=== PATIENT | female | born 1975 | race Caucasian/White ===

== ENCOUNTER 2017-12-04 13:19 | Emergency (ER) | payer MEDICARE ==
[~2017-12-04] VITALS: Ht 154.9 cm; Wt 74.8 kg
[~2017-12-04 13:19] MED LIST: ACTOS30 MG PO; ADVAIR 500/501 EA INH; ALBUTEROL SULFAT4 MG PO; ALBUTEROL0.63 MG/3 INH; ATORVASTATIN CA10 MG PO; AZITHROMYCIN250 MG PO; BLOOD PRESSURE PILL; BYDUREON2 MG IM; CELEXA40 MG PO; DOXYCYCLINE HY100 MG PO; ESTRADIOL1 MG PO; GLIMEPIRIDE4 MG PO; HUMALOG MI100 UNIT/2 SC; HUMALOG100 UNITS/ SC; KEFLEX500 MG PO; LAMICTAL25 MG PO; LEVAQUIN500 MG PO; LEVEMIR100 UNIT/1 SQ; LISINOPRIL10 MG PO; LRT10 PO; NORCO 10MG-325MG1 EA PO; PEPCID20 MG PO; PREDNISONE10 MG PO; PREDNISONE20 MG PO; PREMARIN0.625 MG PO; TRIGENTA PO; TYLENOL WITH C1 EACH PO; VENTOLIN HFA18 GM INH; ZOFRAN ODT4 MG PO; ZOLOFT100 MG PO; [UNRECOGNIZED DRUG - OTHER]
== END 2017-12-04 20:28 | disposition left against medical advice (07) ==
LOC: ER 13:19
DX: J40 Bronchitis, not specified as acute or chronic (principal)

== ENCOUNTER 2017-12-28 12:15 | Emergency (ER) | payer MEDICARE ==
[~2017-12-28] VITALS: Ht 152.4 cm; Wt 68.0 kg
--- OUTSIDE RECORDS SUMMARY | 2017-12-28 12:18 | XMS REPORT | Continuity of Care Document ---
Author Author [facility] Organization [facility] Address [address] [place] [address] Phone Unavailable Care Team Providers Care Data Warehousing Engineer Name Role Phone MJ BANUELOS III, M.D. PCP Insurance Providers Guarantor Yolette Uribe Address [address] [place] [address] Email NONE Payer Medicare A & B Policy Number [id number] Subscriber's Name Yolette Uribe Relationship 18 Self / Same As Patient Effective Date 99 Advance Directives Directive Response Recorded Date/Time Does the patient have an advance directive? No 05/14/15 3:30am If yes, is advance directive on file with [facility]? No 05/14/15 3:30am If not on file with [facility] will patient provide a copy? No 01/03/17 11:35pm Do you have a Directive to Physician? No 12/04/17 3:31pm Do you have a Medical Power of Rn Teacher? No 12/04/17 3:31pm Do you have an out of hospital Do Not Resuscitate Order? No 12/04/17 3:31pm Do you have any special needs we should be aware of? No 12/04/17 3:31pm Do you have a support person here with you today? Yes 12/04/17 3:31pm Did patient receive Notice of Privacy Practices? Yes 12/04/17 3:31pm Did patient receive patient rights and responsibilities? Yes 12/04/17 3:31pm Problems Medical Problem Onset Date Status Acute asthma 06/05/2014 Acute Dehydration 05/14/2015 Acute Dehydration fever 05/14/2015 Acute Gastroenteritis 05/14/2015 Acute Reactive airway disease 05/14/2015 Acute Uncontrolled blood glucose 05/14/2015 Acute Medications Current Home Medications Medication Dose Units Route Directions Days Qty Instructions Start Date Citalopram Hydrobromide (Celexa) 40 Mg Tablet 50 Mg Oral Daily Insulin Npl/Insulin Lispro (Humalog Mix 75-25 Kwikpen) 100 Unit/1 Ml Insuln.pen 36 Unit Subcutaneously Twice A Day Lisinopril 10 Mg Tablet 10 Mg Oral Daily 30 Tab Past Home Medications Medication Directions Ordered Status Acetaminophen With Codeine (Tylenol With Codeine #3 Tablet) 1 Each Tablet, 300 Mg Oral Every 6 Hours Discontinued Albuterol Sulf (Albuterol Sulfate) 4 Mg Tab, 4 Mg Oral Twice A Day Discontinued Albuterol Sulfate 0.63 Mg/3 Ml Vial.neb, 1 Inhalation Every 4 Hours as needed for Shortness Of Breath Discontinued Albuterol Sulfate (Ventolin Hfa) 18 Gm Hfa.aer.ad, Inh Inhalation Every 4 Hours Discontinued Atorvastatin Calcium 10 Mg Tablet, 10 Mg Oral Daily Discontinued Azithromycin (Z-Nicholas) 250 Mg Tablet, 250 Mg Oral Daily Discontinued Blood Pressure Pill , Discontinued Bydron , Discontinued Cephalexin Monohydrate (Keflex) 500 Mg Capsule, 500 Mg Oral Three Times A Day Discontinued Doxycycline Hyclate 100 Mg Capsule, 100 Mg Oral Every 12 Hours Discontinued Doxycycline Hyclate 100 Mg Capsule, 100 Mg Oral Every 12 Hours 02/08/15 Discontinued Estradiol 1 Mg Tab, 0.5 Mg Oral Daily Discontinued Exenatide Microspheres (Bydureon) 2 Mg Vial, 1 Vial Intramusc Qweekly Discontinued Famotidine (Pepcid) 20 Mg Tablet, 20 Mg Oral Twice A Day 02/08/15 Discontinued Glimepiride 4 Mg Tablet, 4 Mg Oral Daily Discontinued Insulin Detemir (Levemir) 100 Unit/1 Ml Vial, 44 Units Sub-Q Daily Discontinued Insulin Human Lispro (Humalog) 100 Units/Ml Ml, Subcutaneously Daily Discontinued Lamotrigine (Lamictal) 25 Mg Tab, 25 Mg Oral Daily Discontinued Levofloxacin (Levaquin) 500 Mg Tablet, 500 Mg Oral Daily Discontinued Lrt10 10 Mg Tab, 10 Mg Oral Daily 02/08/15 Discontinued Ondansetron (Zofran Odt) 4 Mg Tab.rapdis, 4 Mg Oral Every 6 Hours Discontinued Pioglitazone Hcl (Actos) 30 Mg Tablet, 30 Mg Oral Daily Discontinued Prednisone 20 Mg Tab, 20 Mg Oral Every 12 Hours 02/08/15 Discontinued Sertraline Hcl (Zoloft) 100 Mg Tablet, 100 Mg Oral Daily Discontinued Sertraline Hcl (Zoloft) 100 Mg Tablet, 100 Mg Oral Daily Discontinued Trigenta , 1 Tab Oral Daily Discontinued Social History Social History Problem Response Recorded Date/Time Onset Date Status Hx Psychiatric Problems Yes 05/14/2015 3:30am Not Applicable Not Applicable Hx Eating Disorder No 05/14/2015 3:30am Not Applicable Not Applicable Hx Substance Use Disorder No 05/14/2015 3:30am Not Applicable Not Applicable Hx Depression No 05/14/2015 3:30am Not Applicable Not Applicable Hx Alcohol Use No 05/14/2015 3:30am Not Applicable Not Applicable Hx Substance Use Treatment No 05/14/2015 3:30am Not Applicable Not Applicable Hx Physical Abuse No 05/14/2015 3:30am Not Applicable Not Applicable Hospital Discharge Instructions No hospital discharge instruction information available. Plan of Care Discharge Date 12/04/17 8:28pm Disposition REQUEST WITHDRAWN FOR M[facility] Condition at Discharge Other Forms Provided Work/School Excuse Prescriptions See Medication Section Functional Status No functional status information available. Allergies, Adverse Reactions, Alerts Allergen Type Severity Reaction Status Last Updated promethazine HCl Allergy Mild ITCHING Active 12/04/17 Penicillin Allergy Unknown Active 12/04/17 Sulfa (Sulfonamide Antibiotics) Allergy Unknown Active 12/04/17 Morphine Allergy Severe AIRWAY CLOSED Active 12/04/17 Ibuprofen Allergy Severe GI distress Active 12/04/17 Metformin Allergy Mild TONGUE SWELLING Active 12/04/17 Immunizations No immunization information available. Vital Signs Acute Vital Signs Vital Response Date/Time Temperature (Fahrenheit) 98.8 degrees F (97.6 - 99.5) 04/01/2017 1:05am Pulse Pulse Rate (adult) 82 bpm (60 - 90) 04/01/2017 1:05am Respiratory Rate 20 bpm (12 - 24) 04/01/2017 1:05am Blood Pressure 114/86 mm Hg 04/01/2017 1:05am Height 5 ft 1 in 12/04/2017 1:56pm Weight 165 lb 12/04/2017 1:56pm Body Mass Index 31.2 kg/m^2 12/04/2017 1:56pm Results Laboratory Results Test Name Result Units Flags Reference Collection Date/Time Result Date/ Time Comments White Blood Count 4.77 x10e3/uL L 4.8-10.8 03/31/2017 5:56pm 03/31/2017 6:13pm Red Blood Count 5.09 x10e6/uL 3.6-5.1 03/31/2017 5:56pm 03/31/2017 6: 13pm Hemoglobin 15.0 g/dL 12.0-16.0 03/31/2017 5:56pm 03/31/2017 6:13pm Hematocrit 43.5 % 34.2-44.1 03/31/2017 5:56pm 03/31/2017 6:13pm Mean Corpuscular Volume 85.5 fL 81-99 03/31/2017 5:56pm 03/31/2017 6: 13pm Mean Corpuscular Hemoglobin 29.5 pg 28-32 03/31/2017 5:56pm 03/31/2017 6:13pm Mean Corpuscular Hemoglobin Concent 34.5 g/dL 31-35 03/31/2017 5:56pm 03/31/2017 6:13pm Red Cell Distribution Width 11.9 % 11.7-14.4 03/31/2017 5:56pm 2016 6:13pm Platelet Count 221 x10e3/uL 140-360 03/31/2017 5:56pm 03/31/2017 6: 13pm Neutrophils (%) (Auto) 41.4 % 38.7-80.0 03/31/2017 5:56pm 03/31/2017 6: 13pm Lymphocytes (%) (Auto) 47.2 % H 18.0-39.1 03/31/2017 5:56pm 03/31/2017 6 :13pm Monocytes (%) (Auto) 9.6 % 4.4-11.3 03/31/2017 5:56pm 03/31/2017 6: 13pm Eosinophils (%) (Auto) 1.0 % 0.0-6.0 03/31/2017 5:56pm 03/31/2017 6: 13pm Basophils (%) (Auto) 0.6 % 0.0-1.0 03/31/2017 5:56pm 03/31/2017 6:13pm IM GRANULOCYTES % 0.2 % 0.0-1.0 03/31/2017 5:56pm 03/31/2017 6:13pm Neutrophils # (Auto) 2.0 L 2.1-6.9 03/31/2017 5:56pm 03/31/2017 6: 13pm Lymphocytes # (Auto) 2.3 1.0-3.2 03/31/2017 5:56pm 03/31/2017 6:13pm Monocytes # (Auto) 0.5 0.2-0.8 03/31/2017 5:56pm 03/31/2017 6:13pm Eosinophils # (Auto) 0.1 0.0-0.4 03/31/2017 5:56pm 03/31/2017 6:13pm Basophils # (Auto) 0.0 0.0-0.1 03/31/2017 5:56pm 03/31/2017 6:13pm Absolute Immature Granulocyte (auto 0.01 x10e3/uL 0-0.1 03/31/2017 5: 56pm 03/31/2017 6:13pm Urine Color YELLOW YELLOW 03/31/2017 5:53pm 03/31/2017 7:07pm Urine Clarity CLEAR CLEAR 03/31/2017 5:53pm 03/31/2017 7:07pm Urine Specific [place] 1.005 L 1.010-1.025 03/31/2017 5:53pm 2016 7:07pm Urine pH 5 5 - 7 03/31/2017 5:53pm 03/31/2017 7:07pm Urine Leukocyte Esterase TRACE H NEGATIVE 03/31/2017 5:53pm 2016 7:07pm Urine Nitrite NEGATIVE NEGATIVE 03/31/2017 5:53pm 03/31/2017 7:07pm Urine Protein NEGATIVE NEGATIVE 03/31/2017 5:53pm 03/31/2017 7:07pm Urine Glucose (UA) 3+ H NEGATIVE 03/31/2017 5:53pm 03/31/2017 7:07pm Urine Ketones NEGATIVE NEGATIVE 03/31/2017 5:53pm 03/31/2017 7:07pm Urine Urobilinogen 0.2 mg/dL 0.2 - 1 03/31/2017 5:53pm 03/31/2017 7: 07pm Urine Bilirubin NEGATIVE NEGATIVE 03/31/2017 5:53pm 03/31/2017 7: 07pm Urine Blood NEGATIVE NEGATIVE 03/31/2017 5:53pm 03/31/2017 7:07pm Urine WBC 6-10 /HPF H 0-5 03/31/2017 5:53pm 03/31/2017 7:10pm Urine RBC NONE /HPF 0-5 03/31/2017 5:53pm 03/31/2017 7:10pm Urine Bacteria FEW /HPF NONE 03/31/2017 5:53pm 03/31/2017 7:10pm Urine Epithelial Cells MODERATE /LPF NONE 03/31/2017 5:53pm 03/31/2017 7:10pm Urine Yeast RARE H NONE 03/31/2017 5:53pm 03/31/2017 7:10pm Sodium Level 134 mmol/L L 136-145 03/31/2017 11:52pm 04/01/2017 12:17am Potassium Level 3.4 mmol/L L 3.5-5.1 03/31/2017 11:52pm 04/01/2017 12: 17am Chloride Level 102 mmol/L 98-107 03/31/2017 11:52pm 04/01/2017 12:17am Carbon Dioxide Level 23 mmol/L 22-03/31/2017 11:52pm 04/01/2017 12: 17am Anion Gap 12.4 mmol/L 8-16 03/31/2017 11:52pm 04/01/2017 12:17am Blood Urea Nitrogen 5 mg/dL L 7-03/31/2017 11:52pm 04/01/2017 12: 17am Creatinine 0.71 mg/dL 0.57-1.11 03/31/2017 11:52pm 04/01/2017 12:17am BUN/Creatinine Ratio 7 6-03/31/2017 11:52pm 04/01/2017 12:17am Estimat Glomerular Filtration Rate > 60 ML/MIN 60- 03/31/2017 11:52pm 04/01/2017 12:17am Ranges were taken from the National Kidney Disease Education Program and the National Kidney Foundation literature. Reference ranges: 60 or greater: Normal 16-59 (for 3 consecutive months): Chronic kidney disease 15 or less: Kidney failure Glucose Level 294 mg/dL H 74-118 03/31/2017 11:52pm 04/01/2017 12:17am Calcium Level 8.8 mg/dL 8.4-10.2 03/31/2017 11:52pm 04/01/2017 12:17am Lactic Acid Level 13.4 MG/DL 4.5-19.8 03/31/2017 11:52pm 04/01/2017 12: 19am Total Bilirubin 0.2 mg/dL 0.2-1.2 03/31/2017 5:56pm 03/31/2017 6:33pm Aspartate Amino Transf (AST/SGOT) 11 IU/L 5-34 03/31/2017 5:56pm 2016 6:33pm Alanine Aminotransferase (ALT/SGPT) 14 IU/L 0-55 03/31/2017 5:56pm 6:33pm Total Protein 7.7 g/dL 6.5-8.1 03/31/2017 5:56pm 03/31/2017 6:33pm Albumin 3.9 g/dL 3.5-5.0 03/31/2017 5:56pm 03/31/2017 6:33pm Globulin 3.8 g/dL H 2.3-3.5 03/31/2017 5:56pm 03/31/2017 6:33pm Albumin/Globulin Ratio 1.0 0.8-2.0 03/31/2017 5:56pm 03/31/2017 6: 33pm Alkaline Phosphatase 156 IU/L H 40-150 03/31/2017 5:56pm 03/31/2017 6: 33pm Microbiology Results Procedure Source Organism/Result Collection Date/Time Result Date/Time Result Status Blood Culture Blood NO GROWTH AFTER 5 DAYS, FINAL REPORT 03/31/2017 5:56pm 04/05/2017 6:08pm Final Procedures Procedure Status Date Provider(s) X-ray of chest, two views Active 03/31/17 ABEBA BENÍTEZ MD Encounters Encounter Location Arrival/Admit Date Discharge/Depart Date Attending Provider Departed Emergency Room [facility] 12/04/17 1:19pm 8:28pm SHAHID JACKSON MD Departed Emergency Room [facility] 03/31/17 5:22pm 1:14am ABEBA BENÍTEZ MD Departed Emergency Room [facility] 02/20/17 12:53pm 02/20 5:09pm MANUEL DAVIS MD
[2017-12-28] MEDS ORDERED: HYDROCODONE/APAP 10MG-325MG TAB PO ONE (12:30)
[2017-12-28 12:48] VITALS: BP 131/79
== END 2017-12-28 12:40 | disposition home or self-care (01) ==
LOC: ER 12:15
DX: K02.9 Dental caries, unspecified (principal); I10 Essential (primary) hypertension; E11.9 Type 2 diabetes mellitus without complications; J45.909 Unspecified asthma, uncomplicated; F32.9 Major depressive disorder, single episode, unspecified
CPT/HCPCS: 99282

== ENCOUNTER 2018-01-15 17:59 | Emergency (ER) | payer MEDICARE ==
[~2018-01-15] VITALS: Ht 154.9 cm; Wt 68.0 kg
[2018-01-15] MEDS ORDERED: IBUPROFEN 600 MG TAB PO ONE (18:01)
--- OUTSIDE RECORDS SUMMARY | 2018-01-15 18:03 | XMS REPORT | Continuity of Care Document ---
Author Author [facility] Organization [facility] Address [address] [place] [address] Phone Unavailable Care Team Providers Care Senior Compensation Analyst Name Role Phone MJ BANUELOS III, M.D. PCP Insurance Providers Guarantor Yolette Uribe Address [address] [place] [address] Email NONE Payer Medicare A & B Policy Number [id number] Subscriber's Name Yolette Uribe Relationship 18 Self / Same As Patient Effective Date 99 Advance Directives Directive Response Recorded Date/Time Does the patient have an advance directive? No 05/14/15 3:30am If yes, [facility] No 05/14/15 3:30am If not on file with [facility] will patient provide a copy? No 01/03/17 11:35pm Problems Medical Problem Onset Date Status Acute [...] No 05/14/2015 3:30am Not Applicable Not Applicable Smoking Status Start Date Stop Date Never Smoker Hospital Discharge Instructions No hospital discharge instruction information available. Plan of Care Discharge Date 12/28/17 12:40pm Disposition HOME, SELF-CARE Condition at Discharge Stable Instructions/Education Provided Dental Caries (Cavities) Forms Provided Work/School Excuse Prescriptions See Medication Section Referrals MJ BANUELOS III, M.D. Address: [address] [place] [id number] Additional Instructions/Education 1. follow up with your dentist in 1-2 days without fail 2. return to ed as needed Functional Status No functional status information available. Allergies, Adverse Reactions, Alerts Allergen Type Severity Reaction Status Last Updated promethazine HCl Allergy Mild ITCHING Active 12/28/17 Penicillin Allergy Unknown Active 12/04/17 Sulfa (Sulfonamide Antibiotics) Allergy Unknown Active 12/28/17 Morphine Allergy Severe AIRWAY CLOSED Active 12/28/17 Ibuprofen Allergy Severe GI distress Active 12/04/17 Metformin Allergy Mild TONGUE SWELLING Active 12/28/17 Immunizations No immunization information available. Vital Signs Acute Vital Signs Vital Response Date/Time Temperature (Fahrenheit) 99.4 degrees F (97.6 - 99.5) 12/28/2017 12:48pm Pulse Pulse Rate (adult) 92 bpm (60 - 90) 12/28/2017 12:48pm Respiratory Rate 20 bpm (12 - 24) 12/28/2017 12:48pm Blood Pressure 131/79 mm Hg 12/28/2017 12:48pm Height 5 ft 0 in 12/28/2017 12:33pm Weight 150 lb 12/28/2017 12:33pm Body Mass Index 29.3 kg/m^2 12/28/2017 12:33pm Results Laboratory Results Test Name Result Units Flags Reference Collection Date/Time Result Date/ Time Comments White Blood Count 4.77 x10e3/uL L 4.8-10.8 03/31/2017 5:56pm 03/31/2017 6:13pm Red Blood Count 5.09 x10e6/uL 3.6-5.1 03/31/2017 5:5603/31/2017 6: 13pm Hemoglobin 15.0 g/dL 12.0-16.0 03/31/2017 5:03/31/2017 6:13pm Hematocrit 43.5 % 34.2-44.1 03/31/2017 5:03/31/2017 6:13pm Mean Corpuscular Volume 85.5 fL 81-99 03/31/2017 5:03/31/2017 6: 13pm Mean Corpuscular Hemoglobin 29.5 pg 28-32 03/31/2017 5:56pm 03/31/2017 6:13pm Mean Corpuscular Hemoglobin Concent 34.5 g/dL 31-35 03/31/2017 5:pm 03/31/2017 6:13pm Red Cell Distribution Width 11.9 % 11.7-14.4 03/31/2017 5:2016 6:13pm Platelet Count 221 x10e3/uL 140-360 03/31/2017 5:03/31/2017 6: 13pm Neutrophils (%) (Auto) 41.4 % 38.7-80.0 03/31/2017 5:pm 03/31/2017 6: 13pm Lymphocytes (%) (Auto) 47.2 % H 18.0-39.1 03/31/2017 5:03/31/2017 6 :13pm Monocytes (%) (Auto) 9.6 % 4.4-11.3 03/31/2017 5:03/31/2017 6: 13pm Eosinophils (%) (Auto) 1.0 % 0.0-6.0 03/31/2017 5:03/31/2017 6: 13pm Basophils (%) (Auto) 0.6 % 0.0-1.0 03/31/2017 5:pm 03/31/2017 6:13pm IM GRANULOCYTES % 0.2 % [...] CLEAR 03/31/2017 5:53pm 03/31/2017 7:07pm Urine Specific [place] 1.005 L 1.010-1.025 03/31/2017 5:53pm 2016 7:07pm [...] Discharge/Depart Date Attending Provider Departed Emergency Room [facility] 12/28/17 12:15pm 12/28 12:40pm MANUEL DAVIS MD Departed Emergency Room [facility] 12/04/17 1:19pm 8:28pm SHAHID JACKSON MD Departed Emergency Room [facility] 03/31/17 5:22pm 1:14am ABEBA BENÍTEZ MD
--- NOTE | 2018-01-15 19:44 | Diagnostic Imaging Report ---
RIGHT FOOT - 2 VIEWS RIGHT ANKLE - 3 VIEWS HISTORY: Trauma, twisted ankle COMPARISON: None available. FINDINGS: Sensitivity limited by portable technique and nonweightbearing views. Bones: A 5 mm ossific fragment at the tip of the lateral malleolus. A 3 mm ossific fragment adjacent to the medial aspect of the first tarsometatarsal joint. The ankle mortise is symmetric. Joints: Scattered mild to moderate degenerative changes, most notably the tibiotalar joint. Soft tissues: Regional soft tissue swelling. IMPRESSION: Small age-indeterminate ossific fragments adjacent to the tip of the lateral malleolus and the medial aspect of the first tarsometatarsal joint, correlate for acute focal point tenderness. Signed by: Dr. Jose R Delgado D.O., M.M.M. on 01/15/2018 7:41 PM
[2018-01-15 20:17] VITALS: BP 124/97
== END 2018-01-15 20:39 | disposition home or self-care (01) ==
LOC: ER 17:59
DX: S93.491A Sprain of other ligament of right ankle, initial encounter (principal); W22.8XXA Striking against or struck by other objects, initial encounter; Y93.01 Activity, walking, marching and hiking; Y92.019 Unspecified place in single-family (private) house as the place of occurrence of the external cause; J45.909 Unspecified asthma, uncomplicated; J40 Bronchitis, not specified as acute or chronic
CPT/HCPCS: 99283

== ENCOUNTER 2018-01-17 19:55 | Emergency (ER) | payer MEDICARE ==
[~2018-01-17] VITALS: Ht 154.9 cm; Wt 68.0 kg
--- OUTSIDE RECORDS SUMMARY | 2018-01-17 19:59 | XMS REPORT ---
Author Author [facility] Organization [facility] Address Unknown Phone Unavailable Care Team Providers Care Health Care Law Specialist Name Role Phone SHAHID JACKSON Unavailable Unavailable Problems This patient has no known problems. Allergies, Adverse Reactions, Alerts This patient has no known allergies or adverse reactions. Medications This patient has no known medications. Results Test Description Test Time Test Comments Text Results Atomic Results Result Comments FOOT RIGHT AP LAT [place] [address] Patient Name: YOLETTE URIBE MR #: [id number] : 1975 Age/Sex: 42/F Req #: [id number] Adm Physician: Ordered by: BEVERLY MARTELL PAINT SUPERVISOR Report #: [id number] Location: ER Room/Bed: Procedure: [id number] DX/FOOT RIGHT AP LAT Exam Date: 01/15/18 Exam Time : 1904 REPORT STATUS: Signed RIGHT FOOT - 2 VIEWS RIGHT ANKLE - 3 VIEWS HISTORY: Trauma, twisted ankle COMPARISON: None available. FINDINGS: Sensitivity limited by portable technique and nonweightbearing views. Bones: A 5 mm ossific fragment at the tip of the lateral malleolus. A 3 mm ossific fragment adjacent to the medial aspect of the first tarsometatarsal joint. The ankle mortise is symmetric. Joints : Scattered mild to moderate degenerative changes, most notably the tibiotalar joint. Soft tissues: Regional soft tissue swelling. IMPRESSION: Small age-indeterminate ossific fragments adjacent to the tip of the lateral malleolus and the medial aspect of the first tarsometatarsal joint , correlate for acute focal point tenderness. Signed by: Dr. Jose R Delgado D.O., M.M.M. on 01/15/2018 7:41 PM Dictated By: JOSE R DELGADO DO 40 Transcribed By: JEMAL on 01/15/181940 COPY TO: BEVERLY MARTELL PAINT SUPERVISOR ANKLE 3 + VIEWS RIGHT [place] [address] Patient Name: YOLETTE URIBE MR #: [id number] : 1975 Age/Sex: 42/F Req #: [id number] Adm Physician: Ordered by: BEVERLY MARTELL PAINT SUPERVISOR Report #: [id number] Location: ER Room/Bed: Procedure: [id number] DX/ANKLE 3 + VIEWS RIGHT Exam Date: 01/15/18 Exam Time: 1905 REPORT STATUS: Signed RIGHT FOOT - 2 VIEWS RIGHT ANKLE - 3 VIEWS HISTORY: Trauma, twisted ankle COMPARISON: None available. FINDINGS: Sensitivity limited by portable technique and nonweightbearing views. Bones: A 5 mm ossific fragment at the tip of the lateral malleolus. A 3 mm ossific fragment adjacent to the medial aspect of the first tarsometatarsal joint. The ankle mortise is symmetric. Joints : Scattered mild to moderate degenerative changes, most notably the tibiotalar joint. Soft tissues: Regional soft tissue swelling. IMPRESSION: Small age-indeterminate ossific fragments adjacent to the tip of the lateral malleolus and the medial aspect of the first tarsometatarsal joint , correlate for acute focal point tenderness. Signed by: Dr. Jose R Delgado D.O., M.M.M. on 01/15/2018 7:41 PM Dictated By: JOSE R DELGADO DO 40 Transcribed By: JEMAL on 01/15/181940 COPY TO: BEVERLY MARTELL NP
--- OUTSIDE RECORDS SUMMARY | 2018-01-17 19:59 | XMS REPORT | Continuity of Care Document ---
Author Author [facility] Organization [facility] Address [address] [place] [address] Phone Unavailable Care Team Providers Care Yard Rigger Name Role Phone MJ BANUELOS III, M.D. PCP Insurance Providers Guarantor Yolette Uribe Address [address] [place] [address] Email NONE Payer Medicare A & B Policy Number [id number] Subscriber's Name Yolette Uribe Relationship 18 Self / Same As Patient Effective Date 99 Advance Directives Directive Response Recorded Date/Time Does the patient have an advance directive? No 05/14/15 3:30am If yes, is advance directive on file with [facility]? No 05/14/15 3:30am If not on file with [facility] will patient provide a copy? No 01/03/17 11:35pm Do you have a Directive to Physician? No 01/15/18 8:16pm Do you have a Medical Power of Welt Treater? No 01/15/18 8:16pm Do you have an out of hospital Do Not Resuscitate Order? No 01/15/18 8:16pm Do you have any special needs we should be aware of? No 01/15/18 8:16pm Do you have a support person here with you today? Yes 01/15/18 8:16pm Did patient receive Notice of Privacy Practices? Yes 01/15/18 8:16pm Did patient receive patient rights and responsibilities? Yes 01/15/18 8:16pm Problems Medical Problem Onset Date Status Acute [...] information available. Plan of Care Discharge Date 01/15/18 8:39pm Disposition HOME, SELF-CARE Condition at Discharge Stable Instructions/Education Provided Foot Care Sprains - Ankle Forms Provided Work/School Excuse Prescriptions See Medication Section Referrals PIPO CRAIG DPM Order Date: Call for an appointment Address: [address] [place] [id number] MJ BANUELOS III, M.D. Address: [id number] [place] [id number] Additional Instructions/Education Keep your injured extremity elevated above your heart, use ice packs for 15 to 20 minutes every 1-2 hours. This will help decrease pain and swelling. Take Motrin 400mg to 600mg every 4-6 hours as needed for pain. If prescribed pain medication on discharge, take the pain medication as prescribed and adhere to the warnings given for pain medication such as no swimming, driving operating heavy machinery, drinking or mixing with other medications that can interact with the narcotic. Follow up with the Orthopedic referral physician listed, call next business day to schedule your follow-up appointment. Return to the Emergency Department for any shortness of breath, increased pain injured extremity, discoloration of extremity crit is decreased circulation of extremity, or any new concerns. Functional Status No functional status information available. Allergies, Adverse Reactions, Alerts Allergen Type Severity Reaction Status Last Updated promethazine HCl Allergy Mild ITCHING Active 01/15/18 Sulfa (Sulfonamide Antibiotics) Allergy Unknown Active 01/15/18 Morphine Allergy Severe AIRWAY CLOSED Active 01/15/18 Metformin Allergy Mild TONGUE SWELLING Active 01/15/18 Immunizations No immunization information available. Vital Signs Acute Vital Signs Vital Response Date/Time Temperature (Fahrenheit) 99.4 degrees F (97.6 - 99.5) 12/28/2017 12:48pm Pulse Pulse Rate (adult) 88 bpm (60 - 90) 01/15/2018 8:17pm Respiratory Rate 20 bpm (12 - 24) 12/28/2017 12:48pm Blood Pressure 124/97 mm Hg 01/15/2018 8:17pm Height 5 ft 1 in 01/15/2018 6:00pm Weight 150 lb 01/15/2018 6:00pm Body Mass Index 28.3 kg/m^2 01/15/2018 6:00pm Results Laboratory Results Test Name Result Units [...] Monocytes (%) (Auto) 9.6 % 4.4-11.3 03/31/2017 5:pm 03/31/2017 6: 13pm Eosinophils (%) (Auto) 1.0 % 0.0-6.0 03/31/2017 5:pm 03/31/2017 6: 13pm Basophils (%) (Auto) 0.6 % 0.0-1.0 03/31/2017 5:pm 03/31/2017 6:13pm IM GRANULOCYTES % 0.2 % 0.0-1.0 03/31/2017 5:03/31/2017 6:13pm Neutrophils # (Auto) 2.0 L 2.1-6.9 03/31/2017 5:03/31/2017 6: 13pm Lymphocytes # (Auto) 2.3 1.0-3.2 03/31/2017 5:pm 03/31/2017 6:13pm Monocytes # (Auto) 0.5 0.2-0.8 03/31/2017 5:pm 03/31/2017 6:13pm Eosinophils # (Auto) 0.1 0.0-0.4 03/31/2017 5:pm 03/31/2017 6:13pm Basophils # (Auto) 0.0 0.0-0.1 03/31/2017 5:56pm 03/31/2017 6:13pm Absolute Immature Granulocyte (auto 0.01 x10e3/uL 0-0.1 03/31/2017 5: 56pm 03/31/2017 6:13pm Urine Color YELLOW YELLOW 03/31/2017 5:53pm 03/31/2017 7:07pm Urine Clarity CLEAR CLEAR 03/31/2017 5:53pm 03/31/2017 7:07pm Urine Specific Jay 1.005 L 1.010-1.025 03/31/2017 5:53pm 2016 7:07pm [...] 04/01/2017 12:17am Carbon Dioxide Level 23 mmol/L 22-29 03/31/2017 11:52pm 04/01/2017 12: 17am Anion Gap 12.4 mmol/L 8-16 03/31/2017 11:52pm 04/01/2017 12:17am Blood Urea Nitrogen 5 mg/dL L 7-03/31/2017 11:52pm 04/01/2017 12: 17am Creatinine 0.71 mg/dL 0.57-1.11 03/31/2017 11:52pm 04/01/2017 12:17am BUN/Creatinine Ratio 7 6-25 03/31/2017 11:52pm 04/01/2017 12:17am Estimat Glomerular Filtration Rate [...] Discharge/Depart Date Attending Provider Departed Emergency Room [facility] 01/15/18 5:59pm 8:39pm SHAHID JACKSON MD Departed Emergency Room [facility] Patients [facility] 12/28/17 12:15pm 12/28 12:40pm MANUEL DAVIS MD Departed Emergency Room [facility] Patients [facility] 12/04/17 1:19pm 8:28pm SHAHID JACKSON MD Departed Emergency Room [facility] Patients [facility] 03/31/17 5:22pm 1:14am ABEBA BENÍTEZ MD
[2018-01-17] MEDS ORDERED: TRAMADOL HCL 50 MG TAB PO ONE (20:15)
--- NOTE | 2018-01-17 21:02 | Diagnostic Imaging Report ---
KNEE RIGHT THREE VIEWS ANKLE 3 + VIEWS RIGHT FOOT RIGHT COMPLETE HISTORY: Status post fall COMPARISON: None FINDINGS: Bones: Cortical defect at the proximal diaphysis of the third metatarsal diaphysis may represent a nondisplaced fracture Osseous alignment is within normal limits. 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 IMPRESSION: 1. Suspected nondisplaced fracture at the base of the third metatarsal diaphysis. 2. 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 Jeffery Nguyễn M.D. on 01/17/2018 8:59 PM
[2018-01-17 21:30] VITALS: BP 145/81
== END 2018-01-17 21:41 | disposition home or self-care (01) ==
LOC: ER 19:55
PROC: 2W3QX1Z Immobilization of Right Lower Leg using Splint (ICD-10-PCS; principal; 2018-01-17)
DX: S92.334A Nondisplaced fracture of third metatarsal bone, right foot, initial encounter for closed fracture (principal); S93.621A Sprain of tarsometatarsal ligament of right foot, initial encounter; M25.561 Pain in right knee; W01.0XXA Fall on same level from slipping, tripping and stumbling without subsequent striking against object, initial encounter; Y92.008 Other place in unspecified non-institutional (private) residence as the place of occurrence of the external cause; J45.909 Unspecified asthma, uncomplicated
CPT/HCPCS: 99284

== ENCOUNTER 2018-09-06 08:16 | Emergency (ER) | payer MEDICARE ==
[~2018-09-06] VITALS: Ht 154.9 cm; Wt 70.3 kg
[~2018-09-06 08:16] MED LIST changes: +CIPRO500 MG PO; +MINOCYCLINE HCL50 MG PO
[2018-09-06] MEDS ORDERED: TRAMADOL/APAP 37.5MG-325MG TAB PO ONE (09:15)
[2018-09-06] MEDS ORDERED: KETOROLAC TROMETHAMINE 60 MG/2 ML VIAL IM ONE (09:30)
[2018-09-06] MEDS ORDERED: PREDNISONE 20 MG TAB PO ONE (09:30)
[2018-09-06 10:02] VITALS: BP 126/89
== END 2018-09-06 10:05 | disposition home or self-care (01) ==
LOC: ER 08:16
DX: M25.562 Pain in left knee (principal); M17.12 Unilateral primary osteoarthritis, left knee; R26.2 Difficulty in walking, not elsewhere classified; E11.9 Type 2 diabetes mellitus without complications
CPT/HCPCS: 99282; J1885; J7512

== ENCOUNTER 2018-09-10 20:41 | Emergency (ER) | payer MEDICARE ==
[~2018-09-10] VITALS: Ht 154.9 cm; Wt 70.3 kg
[2018-09-10 20:58] VITALS: BP 136/78
== END 2018-09-10 20:55 | disposition left against medical advice (07) ==
LOC: ER 20:41
DX: M25.562 Pain in left knee (principal)

== ENCOUNTER 2018-09-19 09:56 | Emergency (ER) | payer MEDICARE ==
[~2018-09-19] VITALS: Ht 149.9 cm; Wt 70.3 kg
[2018-09-19] MEDS ORDERED: ZITHROMAX250 MG PO (10:07)
[2018-09-19] MEDS ORDERED: DEXAMETHASONE SOD PHOS 10 MG/1 ML VIAL IM ONE (10:15)
[2018-09-19] MEDS ORDERED: ACETAMINOPHEN/CODEINE ELIX 120-12 MG/5 ML UDC PO PRN (10:15)
[2018-09-19] MEDS ORDERED: ACETAMINOPHEN/CODEINE 300MG - 30MG TAB PO ONE (10:15)
[2018-09-19] MEDS ORDERED: TAMIFLU75 MG PO (10:19)
[2018-09-19] MEDS ORDERED: ACETAMINOPHEN 325 MG TAB ONE (10:47)
[2018-09-19] MEDS ORDERED: ACETAMINOPHEN 325 MG TAB PO ONE (11:00)
[2018-09-19] MEDS ORDERED: BACITRACIN ZINC 0.9GM TP ONE (11:36)
== END 2018-09-19 11:10 | disposition home or self-care (01) ==
LOC: ER 09:56
DX: R50.9 Fever, unspecified (principal); R05 Cough; J02.9 Acute pharyngitis, unspecified
CPT/HCPCS: 99283; J1100

== ENCOUNTER 2019-01-23 21:40 | Emergency (ER) | payer MEDICARE ==
[~2019-01-23] VITALS: Ht 149.9 cm; Wt 64.9 kg
[~2019-01-23 21:40] MED LIST changes: +TAMIFLU75 MG PO; +ZITHROMAX250 MG PO
[2019-01-23] MEDS ORDERED: DIPHENHYDRAMINE HCL INJ 50 MG/ML VIAL IV ONE (22:30)
[2019-01-23] MEDS ORDERED: SODIUM CHLORIDE 0.9% 1000ML 1,000 ML IV STA (22:30)
[2019-01-23] MEDS ORDERED: KETOROLAC TROMETHAMINE 30 MG/ML VIAL IV STA (22:30)
[2019-01-23] MEDS ORDERED: METOCLOPRAMIDE HCL 10 MG/2ML VIAL IV ONE (22:30)
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
[2019-01-23 23:24] LABS: BILIRUBIN,URINE NEGATIVE (NEGATIVE); CLARITY,URINE CLEAR (CLEAR); COLOR,URINE YELLOW (YELLOW); KETONES,URINE NEGATIVE (NEGATIVE); LEUKOCYTE ESTERASE ,URINE NEGATIVE (NEGATIVE); NITRITE,URINE NEGATIVE (NEGATIVE); PROTEIN,URINE DIPSTICK NEGATIVE (NEGATIVE); URINE UROBILINOGEN 0.2 mg/dL (0.2 - 1)
[2019-01-23 23:35] LABS: BACTERIA,URINE FEW /HPF; EPITHELIAL CELLS,URINE FEW /LPF; RBC,URINE 0-5 /HPF (0-5); WBC,URINE (MAN) >50 /HPF (0-5)
--- NOTE | 2019-01-23 23:35 | NUR ---
PATIENT HAD HYSTERECTOMY, NO CONTRAINIDICATION FOR TORADOL
[2019-01-24 00:30] VITALS: BP 104/70
== END 2019-01-24 00:45 | disposition home or self-care (01) ==
LOC: ER 21:40
DX: G43.001 Migraine without aura, not intractable, with status migrainosus (principal); N30.90 Cystitis, unspecified without hematuria; I10 Essential (primary) hypertension; E11.9 Type 2 diabetes mellitus without complications; J45.909 Unspecified asthma, uncomplicated
CPT/HCPCS: 70450; 81001; 99284; J1200; J1885; J2765; J7030

== ENCOUNTER 2019-06-17 18:18 | Emergency (ER) | payer MEDICARE, OTHER ==
[~2019-06-17] VITALS: Ht 149.9 cm; Wt 64.9 kg
--- OUTSIDE RECORDS SUMMARY | 2019-06-17 18:22 | XMS REPORT | Continuity of Care Document ---
Author Author [facility] Address Unknown Phone Unavailable Care Team Providers Care Stave Grader Name Role Phone [employer] Information [place] Unavailable Unavailable Problems Problem Status Onset Date Classification Date Reported Comments Source Dehydration Active 05/14/2015 Problem 01/24/2019 [facility] Dehydration fever Active 05/14/2015 Problem 01/24/2019 [facility] Gastroenteritis Active 05/14/2015 Problem 01/24/2019 [facility] Reactive airway disease Active 05/14/2015 Problem 01/24/2019 [facility] Uncontrolled blood glucose Active 05/14/2015 Problem 01/24/2019 [facility] Acute asthma Active 06/05/2014 Problem 01/24/2019 [facility] HAND PAIN Active 08/06/2013 [facility] Perirectal abscess Active Problem 01/24/2019 [facility] Medications Medication Details Route Status Patient Instructions Ordering Provider Order Date Source Azithromycin (Zithromax) 250 Mg Tablet Daily Active [facility] 09/19/2018 [facility] Oseltamivir Phosphate (Tamiflu) 75 Mg Cap Twice A Day Active [facility] 09/19/2018 [facility] Acetaminophen With Codeine (Tylenol With Codeine #3 Tablet) 1 Each Tablet Every 8 Hours as needed for Prn Active [facility] 03/19/2018 [facility] Ciprofloxacin Hcl (Cipro) 500 Mg Tablet Every 12 Hours Active [facility] 03/19/2018 [facility] Minocycline Hcl 50 Mg Capsule Twice A Day Active [facility] 03/19/2018 [facility] Citalopram Hydrobromide (Celexa) 40 Mg Tablet, 50 Mg Oral Daily Active 03/19/2018 [facility] Blood Pressure Pill , Active 03/31/2017 [facility] Bydron , Active 02/20/2017 [facility] Trigenta , 1 Tab Oral Daily Active 02/20/2017 [facility] Azithromycin (Z-Nicholas) 250 Mg Tablet, 250 Mg Oral Daily Active 01/03/2017 [facility] Exenatide Microspheres (Bydureon) 2 Mg Vial, 1 Vial Intramusc Qweekly Active 01/03/2017 [facility] Ondansetron (Zofran Odt) 4 Mg Tab.rapdis, 4 Mg Oral Every 6 Hours Active 01/03/2017 [facility] Sertraline Hcl (Zoloft) 100 Mg Tablet, 100 Mg Oral Daily Active 01/03/2017 [facility] Doxycycline Hyclate 100 Mg Capsule, 100 Mg Oral Every 12 Hours Active 07/23/2016 [facility] Acetaminophen With Codeine (Tylenol With Codeine #3 Tablet) 1 Each Tablet, 300 Mg Oral Every 6 Hours Active 01/19/2016 [facility] Cephalexin Monohydrate (Keflex) 500 Mg Capsule, 500 Mg Oral Three Times A Day Active 01/19/2016 [facility] Albuterol Sulfate 0.63 Mg/3 Ml Vial.neb, 1 Inhalation Every 4 Hours as needed for Shortness Of Breath Active 01/02/2016 [facility] Insulin Detemir (Levemir) 100 Unit/1 Ml Vial, 44 Units Sub-Q Daily Active 01/02/2016 [facility] Insulin Human Lispro (Humalog) 100 Units/Ml Ml, Subcutaneously Daily Active 01/02/2016 [facility] Doxycycline Hyclate 100 Mg Capsule, 100 Mg Oral Every 12 Hours Active [facility] 02/08/2015 [facility] Famotidine (Pepcid) 20 Mg Tablet, 20 Mg Oral Twice A Day Active [facility] 02/08/2015 [facility] Lrt10 10 Mg Tab, 10 Mg Oral Daily Active [facility] 02/08/2015 [facility] Prednisone 20 Mg Tab, 20 Mg Oral Every 12 Hours Active [facility] 02/08/2015 [facility] Albuterol Sulf (Albuterol Sulfate) 4 Mg Tab, 4 Mg Oral Twice A Day Active 10/10/2014 [facility] Albuterol Sulfate (Ventolin Hfa) 18 Gm Hfa.aer.ad, Inh Inhalation Every 4 Hours Active 10/10/2014 [facility] Levofloxacin (Levaquin) 500 Mg Tablet, 500 Mg Oral Daily Active 10/06/2014 [facility] Estradiol 1 Mg Tab, 0.5 Mg Oral Daily Active 06/05/2014 [facility] Atorvastatin Calcium 10 Mg Tablet, 10 Mg Oral Daily Active 05/04/2014 [facility] Glimepiride 4 Mg Tablet, 4 Mg Oral Daily Active 05/04/2014 [facility] Lamotrigine (Lamictal) 25 Mg Tab, 25 Mg Oral Daily Active 05/04/2014 [facility] Pioglitazone Hcl (Actos) 30 Mg Tablet, 30 Mg Oral Daily Active 05/04/2014 [facility] Sertraline Hcl (Zoloft) 100 Mg Tablet, 100 Mg Oral Daily Active 05/04/2014 [facility] Insulin Npl/Insulin Lispro (Humalog Mix 75-25 Kwikpen) 100 Unit/1 Ml Insuln.pen Twice A Day Active [facility] Lisinopril 10 Mg Tablet Daily Active [facility] Allergies, Adverse Reactions, Alerts Substance Category Reaction Severity Reaction type Status Date Reported Comments Source promethazine HCl ITCHING Mild Allergy to Substance Active 09/06/2018 [facility] Sulfa (Sulfonamide Antibiotics) Unknown Allergy to Substance Active 09/06/2018 [facility] Morphine AIRWAY CLOSED Severe Allergy to Substance Active 09/06/2018 [facility] Metformin TONGUE SWELLING Mild Allergy to Substance Active 09/06/2018 [facility] Penicillin Unknown Allergy to Substance Active 01/23/2019 [facility] Immunizations No Data Provided for This Section Results Order Name Results Value Reference Range Date Interpretation Comments Source Urine color determination YELLOW YELLOW 01/23/2019 [facility] Urine clarity CLEAR CLEAR 01/23/2019 [facility] Specific gravity of Urine by Test strip 1.005 1.010 - 1.025 01/23/2019 [facility] Urine pH measurement by automated test strip 6 5 - 7 01/23/2019 [facility] Urine leukocyte esterase detection by dipstick NEGATIVE NEGATIVE 01/23/2019 [facility] Urine nitrite detection NEGATIVE NEGATIVE 01/23/2019 [facility] Urine protein measurement by test strip (mass/volume) NEGATIVE NEGATIVE 01/23/2019 [facility] Urine glucose detection 3+ NEGATIVE 01/23/2019 [facility] Urine ketones detection by automated test strip NEGATIVE NEGATIVE 01/23/2019 [facility] Urine urobilinogen measurement by test strip (mass/volume) 0.2 0.2 - 1 01/23/2019 [facility] Urine total bilirubin measurement (mass/volume) NEGATIVE NEGATIVE 01/23/2019 [facility] Urine erythrocytes detection NEGATIVE NEGATIVE 01/23/2019 [facility] Automated urine sediment leukocyte count by microscopy (number/high power field) >50 0 - 5 01/23/2019 [facility] Erythrocytes detection in urine sediment by light microscopy 0-5 0 - 5 01/23/2019 [facility] Bacteria detection in urine sediment by light microscopy FEW NONE 01/23/2019 [facility] Epithelial cells detection in urine sediment by light microscopy FEW NONE 01/23/2019 [facility] Pathology Reports No Data Provided for This Section Diagnostic Reports Report Value Date Source Hand AP lateral EXAM: XR LEFT HAND 3 VIEWS DATE: 08/06/2013 INDICATION: Erythema COMPARISON: None. TECHNIQUE: 3 views of the left hand DISCUSSION: No acute fracture or malalignment is identified. No soft tissue abnormality is identified. IMPRESSION: No abnormality identified. 08/06/2013 [facility] Consultation Notes No Data Provided for This Section Discharge Summaries No Data Provided for This Section History and Physicals No Data Provided for This Section Vital Signs No Data Provided for This Section Encounters Location Location Details Encounter Type Encounter Number Reason For Visit Attending Provider ADM Date DC Date Status Source [facility] Emergency [id number] MANUEL GARCIA 08/06/2013 08/06/2013 Discharged [facility] Departed Emergency Room [id number] ALIRIO BRISENO MD 09/06/2018 09/06/2018 [facility] Departed Emergency Room [id number] CHEIKH PIKE MD 09/10/2018 09/10/2018 [facility] Departed Emergency Room [id number] CROW SHETH MD 09/19/2018 09/19/2018 [facility] Departed Emergency Room [id number] CHEIKH PIKE MD 01/23/2019 01/24/2019 [facility] Procedures Procedure Code Date Perfomer Comments Source Computed tomography of brain without radiopaque contrast [id number] 01/23/2019 [facility] Assessment and Plan No Data Provided for This Section Plan of Care Plan of Care Date Source Discharge Date 01/24/19 12:45am Disposition HOME, SELF-CARE Condition at Discharge Stable Instructions/Education Provided Headache Prescriptions See Medication Section Additional Instructions/Education FOLLOW UP WITH YOUR DOCTOR TOMMOROW, TAKE ALL ANTIBIOTICS PRESCRIBED 01/24/2019 [facility] Social History Social History Date Source Social History Problem Response Recorded Date/Time Onset Date Status Hx Psychiatric Problems No 03/17/2018 6:08pm Not Applicable Not Applicable Hx Eating Disorder No 03/17/2018 6:08pm Not Applicable Not Applicable Hx Substance Use Disorder No 03/17/2018 6:08pm Not Applicable Not Applicable Hx Depression No 03/17/2018 6:08pm Not Applicable Not Applicable Hx Alcohol Use No 03/17/2018 6:08pm Not Applicable Not Applicable Hx Substance Use Treatment No 03/17/2018 6:08pm Not Applicable Not Applicable Hx Physical Abuse No 03/17/2018 6:08pm Not Applicable Not Applicable Smoking Status Start Date Stop Date Never Smoker 01/24/2019 [facility] Family History No Data Provided for This Section Advance Directives Order Name Results Value Date Source Advance Directives Advance Directives Directive Response Recorded Date/Time Does the patient have an advance directive? No 03/17/18 6:08pm Do you have a Directive to Physician? No 01/23/19 11:05pm Do you have a Medical Power of Fighting Vehicle Systems Maintainer? No 01/23/19 11:05pm Do you have an out of hospital Do Not Resuscitate Order? No 01/23/19 11:05pm Do you have any special needs we should be aware of? No 01/23/19 11:05pm Do you have a support person here with you today? Yes 01/23/19 11:05pm Did patient receive Notice of Privacy Practices? Yes 01/23/19 11:05pm Did patient receive patient rights and responsibilities? Yes 01/23/19 11:05pm 01/24/2019 [facility] Functional Status No Data Provided for This Section
[2019-06-17 19:54] LABS: BILIRUBIN,URINE NEGATIVE (NEGATIVE); CLARITY,URINE CLEAR (CLEAR); COLOR,URINE YELLOW (YELLOW); KETONES,URINE NEGATIVE (NEGATIVE); LEUKOCYTE ESTERASE ,URINE NEGATIVE (NEGATIVE); NITRITE,URINE NEGATIVE (NEGATIVE); PROTEIN,URINE DIPSTICK NEGATIVE (NEGATIVE); URINE UROBILINOGEN 0.2 mg/dL (0.2 - 1)
--- NOTE | 2019-06-17 19:55 | NUR ---
PT BROUGHT BACK TO ROOM 9
[2019-06-17 19:57] LABS: PREGNANCY TEST, URINE NEGATIVE (NEGATIVE)
[2019-06-17 20:08] LABS: WBC,URINE (MAN) 0-5 /HPF (0-5)
[2019-06-17 20:09] LABS: BACTERIA,URINE RARE /HPF; EPITHELIAL CELLS,URINE FEW /LPF
--- NOTE | 2019-06-17 20:40 | NUR ---
PIERO MCFARLAND AT BEDSIDE FOR PT EVAL.
[2019-06-17] MEDS ORDERED: INSULIN REGULAR, HUMAN 100 UNIT/1 ML 3ML VIAL IV ONE (21:00)
[2019-06-17] MEDS ORDERED: SODIUM CHLORIDE 0.9% 1000ML 1,000 ML, SODIUM CHLORIDE 0.9% 1000ML 1,000 ML IV STA ×2 (21:00)
--- NOTE | 2019-06-17 21:22 | Diagnostic Imaging Report ---
EXAMINATION: CHEST 2 VIEWS INDICATION: Cough ^COUGH ^[id number] ^[id number] COMPARISON: 07/23/2016 FINDINGS: PA and lateral views TUBES and LINES: None. LUNGS: Lungs are well inflated. There is no evidence of pneumonia or pulmonary edema. PLEURA: No pleural effusion or pneumothorax. HEART AND MEDIASTINUM: The cardiomediastinal silhouette is unremarkable.. BONES AND SOFT TISSUES: No focal osseous lesions. Soft tissues are unremarkable. UPPER ABDOMEN: No free air under the diaphragm. IMPRESSION: No acute thoracic abnormality. Signed by: Dr. Lilliam Clarke MD on 06/17/2019 9:19 PM
[2019-06-17] MEDS ORDERED: SODIUM CHLORIDE 0.9% 1000ML 1,000 ML IV ONE (21:30)
[2019-06-17 22:00] LABS: BASOPHILS % 0.4 % (0.0-1.0); EOSINOPHILS # (AUTO) 0.1 (0.0-0.4); EOSINOPHILS % 0.7 % (0.0-6.0); HEMATOCRIT 41.1 % (34.2-44.1); HEMOGLOBIN 14.4 g/dL (12.0-16.0); LYMPHOCYTES # (AUTO) 3.4 (1.0-3.2); LYMPHOCYTES % 47.2 % (18.0-39.1); MEAN CORPUSCULAR HEMOGLOBIN 28.7 pg (28-32); MONOCYTES # (AUTO) 0.5 (0.2-0.8); MONOCYTES % 6.3 % (4.4-11.3); NEUTROPHILS # (AUTO) 3.3 (2.1-6.9); NEUTROPHILS % 45.1 % (38.7-80.0); PLATELET COUNT 194 x10e3/uL (140-360); RED BLOOD COUNT 5.01 x10e6/uL (3.6-5.1); RED CELL DISTRIBUTION WIDTH 11.8 % (11.7-14.4)
[2019-06-17 22:08] LABS: STREPTOCOCCUS GRP A ANTIGEN NEGATIVE (NEGATIVE)
[2019-06-17] MEDS ORDERED: ONDANSETRON HCL INJ 2MG/ML 2ML 2 MG/ML VIAL IV STA (22:13)
[2019-06-17] MEDS ORDERED: SODIUM CHLORIDE 0.9% 1000ML 1,000 ML ONE (22:15)
[2019-06-17 22:18] LABS: INFLUENZAE A&B ANTIGEN (RAPID) NEGATIVE (NEGATIVE)
[2019-06-17 22:25] LABS: ALANINE AMINOTRANSFERASE 11 IU/L (0-55); ALBUMIN 3.7 g/dL (3.5-5.0); ALBUMIN/GLOBULIN RATIO 1.1 (0.8-2.0); ALKALINE PHOSPHATASE 132 IU/L (40-150); ANION GAP 14.2 mmol/L (8-16); CALCIUM 10.7 mg/dL (8.4-10.2); CARBON DIOXIDE 29 mmol/L (22-29); CHLORIDE 93 mmol/L (98-107); CREATININE, SERUM 0.83 mg/dL (0.57-1.11); EST GLOMERULAR FILTRATION RATE > 60 ML/MIN (60-); MAGNESIUM 1.6 MG/DL (1.3-2.1); POTASSIUM 4.2 mmol/L (3.5-5.1); SODIUM 132 mmol/L (136-145)
[2019-06-17 22:28] LABS: GLUCOSE 534 mg/dL (74-118)
[2019-06-17 22:42] LABS: BLOOD UREA NITROGEN 10 mg/dL (7-26); BUN/CREATININE RATIO 11 (6-25)
[2019-06-17 23:43] VITALS: BP 109/88
== END 2019-06-17 23:49 | disposition home or self-care (01) ==
LOC: ER 18:18
DX: R50.9 Fever, unspecified (principal); E11.65 Type 2 diabetes mellitus with hyperglycemia; I10 Essential (primary) hypertension; J45.909 Unspecified asthma, uncomplicated
CPT/HCPCS: 36415; 71046; 80053; 81001; 81025; 82948; 83518; 83735; 85025; 87070; 87400; 99284; J1817; J2405; J7030

== ENCOUNTER 2019-07-23 18:13 | Emergency (ER) | payer MEDICARE ==
[~2019-07-23] VITALS: Ht 149.9 cm; Wt 64.9 kg
[2019-07-23 19:39] VITALS: BP 152/84
== END 2019-07-23 19:44 | disposition home or self-care (01) ==
LOC: ER 18:13
DX: K08.89 Other specified disorders of teeth and supporting structures (principal)
CPT/HCPCS: 99282

== ENCOUNTER 2019-08-16 19:21 | Emergency (ER) | payer MEDICARE ==
[~2019-08-16] VITALS: Ht 149.9 cm; Wt 64.9 kg
[2019-08-16] MEDS ORDERED: HYDROCODONE/APAP 10MG-325MG TAB PO ONE (20:15)
[2019-08-16] MEDS ORDERED: HYDROCODONE/APAP 10MG-325MG TAB ONE (20:22)
[2019-08-16] MEDS ORDERED: LIDOCAINE 5% PATCH TP ONE (22:45)
[2019-08-16] MEDS ORDERED: SODIUM CHLORIDE 0.9% 1000ML 1,000 ML IV ONE (22:45)
[2019-08-17 00:15] LABS: BLOOD UREA NITROGEN 7 mg/dL (7-26); BUN/CREATININE RATIO 8 (6-25); CARBON DIOXIDE 23 mmol/L (22-29); CHLORIDE 93 mmol/L (98-107); CREATININE, SERUM 0.93 mg/dL (0.57-1.11); EST GLOMERULAR FILTRATION RATE > 60 ML/MIN (60-); SODIUM 132 mmol/L (136-145)
[2019-08-17 00:34] LABS: GLUCOSE 688 mg/dL (74-118)
[2019-08-17] MEDS ORDERED: INSULIN REGULAR, HUMAN 100 UNIT/1 ML 3ML VIAL SQ ONE (00:45)
[2019-08-17] MEDS ORDERED: INSULIN REGULAR, HUMAN 100 UNIT/1 ML 3ML VIAL IV ONE (00:45)
[2019-08-17 01:15] LABS: BASOPHILS % 0.3 % (0.0-1.0); EOSINOPHILS # (AUTO) 0.1 (0.0-0.4); EOSINOPHILS % 0.7 % (0.0-6.0); HEMATOCRIT 38.4 % (34.2-44.1); HEMOGLOBIN 13.3 g/dL (12.0-16.0); LYMPHOCYTES # (AUTO) 2.6 (1.0-3.2); LYMPHOCYTES % 22.5 % (18.0-39.1); MEAN CORPUSCULAR HEMOGLOBIN 29.5 pg (28-32); MEAN CORPUSCULAR HGB CONC 34.6 g/dL (31-35); MEAN CORPUSCULAR VOLUME 85.1 fL (81-99); MONOCYTES # (AUTO) 0.7 (0.2-0.8); MONOCYTES % 6.3 % (4.4-11.3); NEUTROPHILS # (AUTO) 8.1 (2.1-6.9); NEUTROPHILS % 69.9 % (38.7-80.0); PLATELET COUNT 227 x10e3/uL (140-360); RED BLOOD COUNT 4.51 x10e6/uL (3.6-5.1); RED CELL DISTRIBUTION WIDTH 12.6 % (11.7-14.4)
[2019-08-17 02:49] VITALS: BP 121/73
== END 2019-08-17 03:00 | disposition home or self-care (01) ==
LOC: ER 19:21
DX: B02.9 Zoster without complications (principal); E11.65 Type 2 diabetes mellitus with hyperglycemia
CPT/HCPCS: 36415; 80048; 82948; 85025; 93005; 99283; J1817; J7030

== ENCOUNTER 2019-08-19 08:31 | Inpatient (IN) | payer MEDICARE ==
[~2019-08-19] VITALS: Ht 152.4 cm; Wt 62.1 kg
[2019-08-19] MEDS ORDERED: SODIUM CHLORIDE 0.9% 1000ML 1,000 ML IV STA ×2 (08:45→10:46)
[2019-08-19] MEDS ORDERED: MORPHINE SULFATE INJ 4 MG/ML INJ 1ML IV STA (08:45)
[2019-08-19] MEDS ORDERED: ONDANSETRON HCL INJ 2MG/ML 2ML 2 MG/ML VIAL IV STA (08:45)
[2019-08-19] MEDS ORDERED: CEFEPIME 1GM/NS 0.9% 50 ML 50 ML IV STA (08:56)
[2019-08-19] MEDS ORDERED: FENTANYL CITRATE/PF 100MCG/2 ML INJ IV ONE ×2 (09:30→16:30)
[2019-08-19] MEDS ORDERED: PREGABALIN 75 MG CAP PO ONE (09:30)
[2019-08-19 09:31] LABS: BASOPHILS % 0.3 % (0.0-1.0); EOSINOPHILS # (AUTO) 0.1 (0.0-0.4); EOSINOPHILS % 0.9 % (0.0-6.0); HEMATOCRIT 38.4 % (34.2-44.1); HEMOGLOBIN 13.3 g/dL (12.0-16.0); LYMPHOCYTES # (AUTO) 2.5 (1.0-3.2); LYMPHOCYTES % 19.7 % (18.0-39.1); MEAN CORPUSCULAR HEMOGLOBIN 29.2 pg (28-32); MEAN CORPUSCULAR HGB CONC 34.6 g/dL (31-35); MEAN CORPUSCULAR VOLUME 84.4 fL (81-99); MONOCYTES # (AUTO) 0.9 (0.2-0.8); MONOCYTES % 6.8 % (4.4-11.3); NEUTROPHILS # (AUTO) 9.3 (2.1-6.9); NEUTROPHILS % 72.1 % (38.7-80.0); PLATELET COUNT 288 x10e3/uL (140-360); RED BLOOD COUNT 4.55 x10e6/uL (3.6-5.1); RED CELL DISTRIBUTION WIDTH 12.8 % (11.7-14.4)
[2019-08-19 09:38] LABS: AMPHETAMINES SCREEN,URINE NEGATIVE (NEGATIVE); PHENCYCLIDINE SCREEN,URINE NEGATIVE (NEGATIVE); PREGNANCY TEST, URINE NEGATIVE (NEGATIVE)
[2019-08-19 09:39] LABS: BENZODIAZEPINES SCREEN,URINE NEGATIVE (NEGATIVE)
[2019-08-19] MEDS ORDERED: VANCOMYCIN 1GM/NS 250 ML 250 ML IV ONE (09:40)
[2019-08-19 09:49] LABS: ALANINE AMINOTRANSFERASE 11 IU/L (0-55); ALBUMIN 3.4 g/dL (3.5-5.0); ALBUMIN/GLOBULIN RATIO 0.8 (0.8-2.0); ALKALINE PHOSPHATASE 151 IU/L (40-150); BLOOD UREA NITROGEN < 5 mg/dL (7-26); CALCIUM 10.4 mg/dL (8.4-10.2); CARBON DIOXIDE 27 mmol/L (22-29); CHLORIDE 95 mmol/L (98-107); CREATINE KINASE 24 IU/L (29-168); CREATININE, SERUM 0.83 mg/dL (0.57-1.11); EST GLOMERULAR FILTRATION RATE > 60 ML/MIN (60-); SODIUM 135 mmol/L (136-145)
[2019-08-19 09:54] LABS: BUN/CREATININE RATIO 6 (6-25)
[2019-08-19 09:55] LABS: GLUCOSE 449 mg/dL (74-118)
--- NOTE | 2019-08-19 10:10 | NUR ---
DR. CARLOS NOTIFIED AND AWARE OF CRITICAL LAB VALUE; GLUCOSE 449.
[2019-08-19 10:13] LABS: CREATINE KINASE MB < 1.00 ng/mL (0-4.3)
[2019-08-19] MEDS ORDERED: INSULIN REGULAR, HUMAN 100 UNIT/1 ML 3ML VIAL IV ONE (10:15)
[2019-08-19] MEDS ORDERED: SODIUM CHLORIDE 0.9% 1000ML 1,000 ML ONE (10:52)
[2019-08-19] MEDS ORDERED: HYDROCODONE/APAP 10MG-325MG TAB PO ONE (13:15)
--- NOTE | 2019-08-19 13:19 | Diagnostic Imaging Report ---
Exams: Thoracic and lumbar spine CTs with IV contrast History: Shingles, concern for abscess Comparison studies: Included spine from abdomen pelvis CT of 03/16/2018 Technique: Axial images were obtained through the thoracic and lumbar spine. Coronal and sagittal images reconstructed from the axial data. Dose modulation, iterative reconstruction, and/or weight based adjustment of the mA/kV was utilized to reduce the radiation dose to as low as reasonably achievable. Intravenous contrast: None Findings: Number of non-rib bearing vertebral bodies: 5 Alignment: Normal thoracic kyphosis and lumbar lordosis. Minimal thoracic dextrocurvature and lumbar levocurvature. Soft tissues: Skin thickening with underlying fat stranding in the subcutaneous fat in the right dorsal paraspinal soft tissues centered at the L2-L3 level. No rim-enhancing fluid collection. No gross evidence of intraspinal extension of inflammatory changes. Paraspinal muscles: Unremarkable. Sacroiliac joints: No degenerative changes. Vertebrae: No fractures, infection or neoplasm. Degenerative changes: Disc height is maintained. Patent canal and foramina. IMPRESSION: Findings compatible with cellulitis in the subcutaneous right dorsal paraspinal soft tissues centered at the L2-L3 level. No abscess or evidence of intraspinal extension. Findings discussed with Dr. Holguin at 1:09 PM on 08/19/2019. Signed by: Dr. Flavio Chiu M.D. on 08/19/2019 1:16 PM
[2019-08-19] MEDS ORDERED: ACYCLOVIR SODIUM INJ 500 MG in SODIUM CHLORIDE 0.9% 100 ML 100 ML IV STA (14:32)
[2019-08-19] MEDS ORDERED: SODIUM CHLORIDE 0.9% 50ML 50 ML ONE (14:34)
[2019-08-19] MEDS ORDERED: IOPAMIDOL 370 MG/ML 200 ML INFUS..BTL INJ ONE (14:34)
[2019-08-19] MEDS ORDERED: DEXTROSE 50% SYRINGE 50 ML IV PRN (15:15)
[2019-08-19] MEDS ORDERED: HYDROMORPHONE 1MG/1ML INJ IV ONE (16:22)
[2019-08-19] MEDS ORDERED: ONDANSETRON HCL INJ 2MG/ML 2ML 2 MG/ML VIAL IV ONE (16:22)
[2019-08-19] MEDS ORDERED: LIDOCAINE HCL 2% LOCAL 20 ML VIAL INJ ONE (16:30)
[2019-08-19] MEDS: PREGABALIN 75 MG CAP PO SCH (16:55)
[2019-08-19] MEDS ORDERED: PREGABALIN 25 MG CAP PO SCH (17:00)
[2019-08-19] MEDS ORDERED: ACYCLOVIR 200 MG CAP PO SCH (17:00)
[2019-08-19] MEDS: INSULIN REGULAR, HUMAN 100 UNIT/1 ML 3ML VIAL SQ SCH ×2 (17:05→22:30)
--- NOTE | 2019-08-19 19:11 | NUR ---
called dr sweet at [phone] due to patient requesting pain medication. informed md patient is allergic to morphine. recieved orders for dilaudid iv 2mg q 4 hours prn for pain. telephone orders read back in full.
[2019-08-19] MEDS: HYDROMORPHONE 2MG/ML 2 MG/ML ML IV PRN (19:48)
[2019-08-19] MEDS ORDERED: DIPHENHYDRAMINE HCL 25 MG CAP PO PRN (21:00)
[2019-08-19 22:24] VITALS: BP 122/87
[2019-08-19] MEDS: CLOTRIMAZOLE 1% CR 15 GM TOP SCH (22:30)
[2019-08-19] MEDS: ACYCLOVIR 200 MG CAP PO SCH (23:21)
--- NOTE | 2019-08-19 23:46 | NUR ---
PT IS TRANSFERRED FROM ER .AOX3 .RESPIRATIONS ARE EVEN AND UNLABORED .PT HAS CELLULITIS AT THE BACK .C/O PAIN REDNESS TO THE RT SIDE .RASHES TO THE RT SIDE ,ARMS ,+AND BACK .RT AC 20 S/L.CALL LIGHT WITH IN REACH .CONTINUE TO MONITOR
[2019-08-20] VITALS (12 sets, daily range): BP systolic 90–121; BP diastolic 52–87
[2019-08-20] MEDS: HYDROMORPHONE 2MG/ML 2 MG/ML ML IV PRN ×3 (00:19→16:01)
[2019-08-20] MEDS ORDERED: INFLUENZA VIRUS VAC SPLIT INJ 0.5 ML SYR IM SCH (02:04)
[2019-08-20 04:02] LABS: BASOPHILS % 0.3 % (0.0-1.0); EOSINOPHILS # (AUTO) 0.2 (0.0-0.4); EOSINOPHILS % 1.7 % (0.0-6.0); HEMATOCRIT 34.4 % (34.2-44.1); HEMOGLOBIN 11.9 g/dL (12.0-16.0); LYMPHOCYTES # (AUTO) 2.8 (1.0-3.2); MEAN CORPUSCULAR HEMOGLOBIN 29.8 pg (28-32); MEAN CORPUSCULAR HGB CONC 34.6 g/dL (31-35); MONOCYTES # (AUTO) 0.9 (0.2-0.8); MONOCYTES % 7.7 % (4.4-11.3); NEUTROPHILS # (AUTO) 7.7 (2.1-6.9); PLATELET COUNT 270 x10e3/uL (140-360)
[2019-08-20 04:22] LABS: ALANINE AMINOTRANSFERASE 10 IU/L (0-55); ALBUMIN 2.9 g/dL (3.5-5.0); ALBUMIN/GLOBULIN RATIO 0.8 (0.8-2.0); ALKALINE PHOSPHATASE 121 IU/L (40-150); ANION GAP 14.3 mmol/L (8-16); BLOOD UREA NITROGEN 9 mg/dL (7-26); BUN/CREATININE RATIO 12 (6-25); CALCIUM 9.8 mg/dL (8.4-10.2); CARBON DIOXIDE 26 mmol/L (22-29); CHLORIDE 96 mmol/L (98-107); CREATININE, SERUM 0.73 mg/dL (0.57-1.11); EST GLOMERULAR FILTRATION RATE > 60 ML/MIN (60-); GLUCOSE 296 mg/dL (74-118); POTASSIUM 4.3 mmol/L (3.5-5.1); SODIUM 132 mmol/L (136-145)
[2019-08-20] MEDS ORDERED: EFFEXOR XR 3737.5 MG (04:43)
[2019-08-20] MEDS ORDERED: AMBIEN5 MG PO (04:43)
[2019-08-20] MEDS: ACYCLOVIR 200 MG CAP PO SCH ×5 (05:44→21:22)
--- NOTE | 2019-08-20 07:14 | NUR ---
PT C/O PAIN AND GIVEN ORDERED PAIN MEDICATION.DR HUNTER HAS SEEN THE PT THIS MORNING AND PLAN TO DO I AND D .CALL LIGHT WITH IN REACH .BEDSIDE REPORT GIVEN TO THE ONCOMING NURSE
--- NOTE | 2019-08-20 07:30 | NUR ---
recd pt in bed awake,pain level 3 to back.
[2019-08-20] MEDS ORDERED: ACETAMINOPHEN 325 MG TAB PO PRN (07:45)
[2019-08-20] MEDS ORDERED: MELATONIN 5 MG TABLET PO PRN (07:45)
[2019-08-20] MEDS ORDERED: HYDRALAZINE HCL 20 MG/ML VIAL IV PRN (07:45)
[2019-08-20] MEDS ORDERED: ONDANSETRON HCL INJ 2MG/ML 2ML 2 MG/ML VIAL IV PRN (07:45)
[2019-08-20] MEDS: INSULIN REGULAR, HUMAN 100 UNIT/1 ML 3ML VIAL SQ SCH ×4 (08:00→21:22)
[2019-08-20] MEDS ORDERED: LIDOCAINE HCL 1% LOCAL INJ 20 ML VIAL INJ ONE (08:30)
[2019-08-20] MEDS: INS LISP PRO/LISP HUMAN 75/25 100 UNITS/ML VIAL SC SCH ×2 (08:30→17:22)
[2019-08-20] MEDS: PREGABALIN 75 MG CAP PO SCH ×2 (08:30→17:07)
[2019-08-20] MEDS ORDERED: HYDROCODONE/APAP 7.5MG-325MG 1 EA TAB PO PRN (09:00)
[2019-08-20] MEDS: LISINOPRIL 10 MG TAB PO SCH (10:00)
--- NOTE | 2019-08-20 11:01 | Operative Report ---
DATE OF PROCEDURE: 08/20/2019 SURGEON: Flavio Lara MD POSTOPERATIVE DIAGNOSIS: Abscess, midback. POSTOPERATIVE DIAGNOSIS: Abscess, midback. PROCEDURE: Incision and drainage of abscess, midback. ANESTHESIA: Local. INDICATIONS AND FINDINGS: The patient is a 44-year-old female, who presents with complaints of pain and swelling in her midback. At Surgery, there was an abscess containing approximately 2 mL of purulent fluid, which was drained. TECHNIQUE: At the patient's bedside in supine position, the back was prepped and draped in a sterile fashion with Betadine solution. Skin and subcutaneous tissue over the area of abscess infiltrated with 1% lidocaine. Incision was then made over the area of the abscess, carried down through the skin. The abscess cavity was entered about 2 mL of purulent fluid was drained, sample was taken for culture and sensitivity. The abscess cavity was then packed open with sterile gauze and sterile dressing was applied. The patient tolerated the procedure well. Estimated blood loss was less than 5 mL. There were no complications. MD JAKE Solomon/MODL /[id number]
[2019-08-20] MEDS: VENLAFAXINE HCL 37.5MG XR CAP PO SCH (12:10)
[2019-08-20] MEDS: CLOTRIMAZOLE 1% CR 15 GM TOP SCH ×2 (12:12→17:22)
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
[2019-08-20] MEDS: VANCOMYCIN 1GM/NS 250 ML 250 ML IV SCH (16:01)
--- NOTE | 2019-08-20 16:01 | NUR ---
pt c/o pain medicated.
--- NOTE | 2019-08-20 16:45 | NUR ---
CALLED TO PT ROOM FOUND PT LAYING ON FLOOR BESIDE HER BED,PT STATED SHE DID NOT KNOW WHAT HAPPENED.ASSISTED PT UP TO BED C/O HEAD HURT AND RT SHOULDER PAIN ,PAGED ABY LEUNG,ORDERS WRITTEN.
[2019-08-20] MEDS ORDERED: HYDROCODONE/APAP 10MG-325MG TAB PO PRN (17:15)
[2019-08-20] MEDS: CEFEPIME 2 GM/NS 0.9% 100 ML 100 ML IV SCH (17:22)
--- NOTE | 2019-08-20 19:10 | NUR ---
Received bedside report from day nurse. Patient leaving unit via wheelchair for CT. No s/s of distress at this time. All safety measures in place. Will continue to monitor upon return to unit.
--- NOTE | 2019-08-20 19:22 | NUR ---
Patient back from CT. In stable condition, no s/s of distress at this time. All safety measures in place. Family at bedside. Will continue to monitor.
--- NOTE | 2019-08-20 19:39 | Diagnostic Imaging Report ---
Shoulder limited Indication: Pain after fall. Technique: Single AP image of the right shoulder obtained without comparison. Findings: There is no current dislocation. No evidence of fracture involving the humeral head. Visualized proximal shaft is intact. The clavicle is intact. No fracture evident involving the visualized portion of the scapula. Portions are overlapped by lateral ribs on all images however. IMPRESSION: No evidence of acute fracture or dislocation. Signed by: Dr. Lilliam Clarke MD on 08/20/2019 7:36 PM
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
[2019-08-20] MEDS: PREDNISONE 20 MG TAB PO SCH (21:22)
--- NOTE | 2019-08-20 21:22 | NUR ---
Patient refusing SCDs at this time. No s/s of distress at this time. All safety measures in place, family at bedside. Will continue to monitor.
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
[2019-08-21] VITALS (8 sets, daily range): BP systolic 101–169; BP diastolic 59–94
[2019-08-21] MEDS: HYDROCODONE/APAP 10MG-325MG TAB PO PRN ×2 (00:14→12:15)
--- NOTE | 2019-08-21 00:21 | NUR ---
Patient refusing bed alarm since is at bedside. Assisted patient in getting out of bed and using the restroom. Patient instructed to call for assistance, verbalized understanding. Call light placed within reach, all safety measures in place. Will continue to monitor.
--- NOTE | 2019-08-21 01:08 | NUR ---
Patient reports feeling feverish and like she's "burning up." Oral temperature was 98.9. Offered ice packs. Will continue to monitor.
[2019-08-21] MEDS: VANCOMYCIN 1GM/NS 250 ML 250 ML IV SCH ×2 (03:44→15:00)
--- NOTE | 2019-08-21 03:45 | NUR ---
Could not draw 0300 labs on patient. Stuck twice, asked charge nurse for assistance, was unsuccessful. After three tries patient said she did not want to be stuck again and would rather wait for 911 emergency services dispatcher. Addendum: 08/21/19 at 0410 by Selma Berry RN Attempted venipuncture four times, not three.
[2019-08-21] MEDS ORDERED: SODIUM CHLORIDE 0.9% 250ML 250 ML ONE (03:57)
[2019-08-21] MEDS: CEFEPIME 2 GM/NS 0.9% 100 ML 100 ML IV SCH (05:20)
--- NOTE | 2019-08-21 05:20 | NUR ---
Was able to draw labs on patient.
[2019-08-21] MEDS: ACYCLOVIR 200 MG CAP PO SCH ×5 (05:29→20:52)
[2019-08-21 05:59] LABS: BASOPHILS % 0.3 % (0.0-1.0); EOSINOPHILS % 0.1 % (0.0-6.0); HEMATOCRIT 32.5 % (34.2-44.1); HEMOGLOBIN 10.8 g/dL (12.0-16.0); LYMPHOCYTES # (AUTO) 1.2 (1.0-3.2); LYMPHOCYTES % 14.8 % (18.0-39.1); MEAN CORPUSCULAR HEMOGLOBIN 28.7 pg (28-32); MEAN CORPUSCULAR HGB CONC 33.2 g/dL (31-35); MEAN CORPUSCULAR VOLUME 86.4 fL (81-99); MONOCYTES # (AUTO) 0.2 (0.2-0.8); MONOCYTES % 2.2 % (4.4-11.3); NEUTROPHILS # (AUTO) 6.5 (2.1-6.9); NEUTROPHILS % 82.2 % (38.7-80.0); PLATELET COUNT 284 x10e3/uL (140-360); RED BLOOD COUNT 3.76 x10e6/uL (3.6-5.1); RED CELL DISTRIBUTION WIDTH 12.5 % (11.7-14.4)
[2019-08-21 06:10] LABS: ANION GAP 14.5 mmol/L (8-16); BLOOD UREA NITROGEN 14 mg/dL (7-26); BUN/CREATININE RATIO 22 (6-25); CALCIUM 9.7 mg/dL (8.4-10.2); CARBON DIOXIDE 25 mmol/L (22-29); CHLORIDE 98 mmol/L (98-107); CREATININE, SERUM 0.64 mg/dL (0.57-1.11); EST GLOMERULAR FILTRATION RATE > 60 ML/MIN (60-); GLUCOSE 344 mg/dL (74-118); POTASSIUM 4.5 mmol/L (3.5-5.1); SODIUM 133 mmol/L (136-145)
--- NOTE | 2019-08-21 06:56 | NUR ---
Gave bedside report to day nurse. Patient resting in bed, no s/s of distress or c/o pain at this time. All safety measures in place. Will continue to monitor.
--- NOTE | 2019-08-21 07:15 | NUR ---
PT IN BED SLEPING NO DISTRESS NOTED DENIES PAIN.
[2019-08-21] MEDS: TRAMADOL/APAP 37.5MG-325MG TAB PO PRN ×3 (07:30→22:35)
[2019-08-21] MEDS: INSULIN REGULAR, HUMAN 100 UNIT/1 ML 3ML VIAL SQ SCH ×4 (08:00→20:52)
[2019-08-21] MEDS: VENLAFAXINE HCL 37.5MG XR CAP PO SCH (08:16)
[2019-08-21] MEDS: PREDNISONE 20 MG TAB PO SCH ×3 (08:16→20:52)
[2019-08-21] MEDS: PREGABALIN 75 MG CAP PO SCH (08:16)
[2019-08-21] MEDS: INS LISP PRO/LISP HUMAN 75/25 100 UNITS/ML VIAL SC SCH ×2 (08:17→17:00)
[2019-08-21] MEDS: CLOTRIMAZOLE 1% CR 15 GM TOP SCH ×2 (08:17→17:54)
--- NOTE | 2019-08-21 08:30 | NUR ---
PT C/O PAIN MEDICATED
[2019-08-21] MEDS: LISINOPRIL 10 MG TAB PO SCH (12:43)
[2019-08-21] MEDS: GABAPENTIN 300 MG CAP PO SCH ×2 (15:00→20:52)
[2019-08-21] MEDS: INSULIN GLARGINE 100 UNITS/ML VIAL SQ SCH (17:00)
--- NOTE | 2019-08-21 18:11 | NUR ---
IV RESTARTED TO RT FA 20 GAUGE,PAIN LEVEL 3,DRSG CHANGED TO BACK
--- NOTE | 2019-08-21 19:10 | NUR ---
Received bedside report from day nurse. Patient sitting up in bed, alert and oriented, no s/s of distress or c/o pain at this time. All safety measures in place. Will continue to monitor.
--- NOTE | 2019-08-21 20:21 | NUR ---
Patient's blood sugar is 445. Ameena QUINN notified. No additional orders received yet as of this moment. Will continue to monitor patient.
--- NOTE | 2019-08-21 20:52 | NUR ---
Lower back dressing changed. Minimal drainage noted.
--- NOTE | 2019-08-21 22:45 | NUR ---
Performed fingerstick glucose check on patient, blood glucose level of 455. Spoke with data control clerk supervisor MD via phone call. No additional orders received at this time. Patient alert and oriented, no s/s of distress at this time. All safety measures in place. Will continue to monitor.
[2019-08-22] VITALS: BP 110/78
--- NOTE | 2019-08-22 00:27 | NUR ---
Performed fingerstick blood glucose check on patient. Patient's blood glucose down to 299. No s/s of distress noted. All safety measures in place. Will continue to monitor.
--- NOTE | 2019-08-22 02:18 | NUR ---
Patient refusing lab draws at this time, stating, "You guys are taking so much blood from me, and for what?" Educated patient on reason for vancomycin trough, BMP, and CMP. Offered to ask charge nurse to draw blood instead. Patient refused, saying that she is tired of giving blood and would like to go home. Denies wanting to leave AMA at this time, says that she would like to speak with MD in the morning to further discuss situation and plan. Will attempt to draw labs again later and continue to monitor patient. All safety measures in place.
[2019-08-22] MEDS: HYDROCODONE/APAP 10MG-325MG TAB PO PRN (02:51)
[2019-08-22] MEDS: VANCOMYCIN 1GM/NS 250 ML 250 ML IV SCH ×2 (03:00→06:52)
--- NOTE | 2019-08-22 03:22 | NUR ---
Patient crying in room, still refusing lab draws and all other interventions, saying that she is drained and just wants to go home. Offered self to patient. Patient in otherwise stable condition and once again expressed her wish to speak to MD in the morning and discuss discharge. All safety measures in place. Will continue to monitor.
[2019-08-22 04:00] VITALS: BP 114/55
[2019-08-22] MEDS: ACYCLOVIR 200 MG CAP PO SCH ×2 (05:37→08:30)
--- NOTE | 2019-08-22 05:37 | NUR ---
Patient now agreeing to have labs drawn and to take medication. States that she would still like to speak with MD regarding possible discharge today. Will relay message to day shift. All safety measures in place. Will continue to monitor.
--- NOTE | 2019-08-22 05:51 | NUR ---
Changed back dressing again per patient request.
[2019-08-22 05:55] LABS: BASOPHILS % 0.2 % (0.0-1.0); HEMOGLOBIN 11.6 g/dL (12.0-16.0); LYMPHOCYTES # (AUTO) 1.5 (1.0-3.2); LYMPHOCYTES % 15.3 % (18.0-39.1); MEAN CORPUSCULAR HEMOGLOBIN 29.4 pg (28-32); MEAN CORPUSCULAR HGB CONC 34.1 g/dL (31-35); MEAN CORPUSCULAR VOLUME 86.1 fL (81-99); MONOCYTES # (AUTO) 0.6 (0.2-0.8); MONOCYTES % 6.1 % (4.4-11.3); NEUTROPHILS # (AUTO) 7.5 (2.1-6.9); NEUTROPHILS % 77.9 % (38.7-80.0); PLATELET COUNT 319 x10e3/uL (140-360); RED BLOOD COUNT 3.95 x10e6/uL (3.6-5.1); RED CELL DISTRIBUTION WIDTH 12.7 % (11.7-14.4)
[2019-08-22 06:20] LABS: ANION GAP 12.6 mmol/L (8-16); BLOOD UREA NITROGEN 14 mg/dL (7-26); BUN/CREATININE RATIO 23 (6-25); CARBON DIOXIDE 30 mmol/L (22-29); CHLORIDE 98 mmol/L (98-107); CREATININE, SERUM 0.61 mg/dL (0.57-1.11); EST GLOMERULAR FILTRATION RATE > 60 ML/MIN (60-); GLUCOSE 314 mg/dL (74-118); POTASSIUM 4.6 mmol/L (3.5-5.1); SODIUM 136 mmol/L (136-145)
--- NOTE | 2019-08-22 06:58 | NUR ---
Gave bedside report to day nurse. Patient resting in bed, no s/s of distress or c/o pain at this time. All safety measures in place.
[2019-08-22 07:30] VITALS: BP 109/76
--- NOTE | 2019-08-22 07:30 | NUR ---
pt in bed sleeping ,no s/s discomfort.
[2019-08-22 07:42] VITALS: BP 109/76
[2019-08-22] MEDS ORDERED: GABAPENTIN300 MG PO (07:51)
[2019-08-22] MEDS ORDERED: PREDNISONE20 MG PO (07:51)
[2019-08-22] MEDS ORDERED: Tramadol/Apap 37.5MG-325MG PO (07:51)
[2019-08-22] MEDS ORDERED: HUMALOG MI100 UNIT/2 SC (07:54)
[2019-08-22] MEDS: INSULIN REGULAR, HUMAN 100 UNIT/1 ML 3ML VIAL SQ SCH (08:00)
[2019-08-22] MEDS: VENLAFAXINE HCL 37.5MG XR CAP PO SCH (08:30)
[2019-08-22] MEDS: LISINOPRIL 10 MG TAB PO SCH (08:30)
[2019-08-22] MEDS: GABAPENTIN 300 MG CAP PO SCH (08:30)
[2019-08-22] MEDS: INS LISP PRO/LISP HUMAN 75/25 100 UNITS/ML VIAL SC SCH (08:30)
[2019-08-22] MEDS: INSULIN GLARGINE 100 UNITS/ML VIAL SQ SCH (09:00)
[2019-08-22] MEDS: PREDNISONE 20 MG TAB PO SCH (09:00)
[2019-08-22] MEDS ORDERED: RIFAMPIN300 MG PO (09:16)
[2019-08-22] MEDS ORDERED: BACTRIM DS TAB1 EACH PO (09:16)
[2019-08-22] MEDS: CLOTRIMAZOLE 1% CR 15 GM TOP SCH (09:22)
--- NOTE | 2019-08-22 09:34 | NUR ---
MET W THE PT AT THE BEDSIDE. PT WAS CRYING AND UPSET W HER . SPOKE OF THEIR SEPARATION. STATES SHE FORGOT SHE HAD [facility] PART A. GOES TO THE [facility] FOR HER CARE. STATES SHE WAS RECEIVING DISABILITY, BUT WAS CUT OFF AFTER WORKING 3 ADDL HOURS. [facility] LETTER EXPLAINED TO PT. PT VERBALIZED UNDERSTANDING. IMM LETTER SIGNED. COPY TO PT AND COPY TO CHART. UMA, BEDSIDE NURSE GAVE PT MED TO RELAX. Addendum: 08/22/19 at 0937 by Susy Zambrano CM STATES SHE HAS A RIDE HOME.
--- NOTE | 2019-08-22 09:40 | NUR ---
PT YELLING SCREAMING CUSING,REQUESTING ANXIETY MEDICINE.ORDERED AND RECIEVED.
[2019-08-22] MEDS ORDERED: LORAZEPAM INJ 2 MG/ML VIAL IV ONE (10:00)
--- NOTE | 2019-08-22 10:54 | NUR ---
PT DISCHARGED HOME ,IV DCD WITHOUT REDNEES OR SWELLING,.PRESCRIPTIONS AND INSTRUCTION GIVEN COPY ON CHART.TRANSPORTED TO AUTO VIA W/C
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
== END 2019-08-22 10:54 | disposition home or self-care (01) | DRG 580 ==
LOC: ER 08:31 → ERHOLD 14:41 → MED/SURG3 21:35
PROVIDERS: ADMIT Internal Medicine; ATTEND Internal Medicine
PROC: 0J970ZZ Drainage of Back Subcutaneous Tissue and Fascia, Open Approach (ICD-10-PCS; principal; 2019-08-20)
DX: L02.212 Cutaneous abscess of back [any part, except buttock and flank] (principal); B02.29 Other postherpetic nervous system involvement; E11.9 Type 2 diabetes mellitus without complications; I10 Essential (primary) hypertension; B95.62 Methicillin resistant Staphylococcus aureus infection as the cause of diseases classified elsewhere; F41.9 Anxiety disorder, unspecified; F32.9 Major depressive disorder, single episode, unspecified; J45.909 Unspecified asthma, uncomplicated
CPT/HCPCS: 36415; 70450; 72129; 72131; 80048; 80053; 80202; 80307; 81025; 82550; 82553; 82948; 83605; 84484; 85025; 87040; 87071; 87186; 87205; 96372; 99284; J0692; J1170; J1815; J1817; J2001; J2060; J2405; J3010; J3370; J7030; J7050; J7512; Q9967

== ENCOUNTER 2019-11-15 17:56 | Emergency (ER) | payer MEDICARE ==
[~2019-11-15] VITALS: Ht 152.4 cm; Wt 62.1 kg
[~2019-11-15 17:56] MED LIST changes: +AMBIEN5 MG PO; +BACTRIM DS TAB1 EACH PO; +EFFEXOR XR 3737.5 MG; +GABAPENTIN300 MG PO; +RIFAMPIN300 MG PO; +Tramadol/Apap 37.5MG-325MG PO
== END 2019-11-15 18:42 | disposition home or self-care (01) ==
LOC: ER 17:56
DX: M25.562 Pain in left knee (principal); M25.462 Effusion, left knee; W18.30XD Fall on same level, unspecified, subsequent encounter; G89.29 Other chronic pain
CPT/HCPCS: 99283

== ENCOUNTER 2019-12-31 10:09 | Emergency (ER) | payer SELFPAY, OTHER ==
[~2019-12-31] VITALS: Ht 152.4 cm; Wt 62.1 kg
[2019-12-31] MEDS ORDERED: SODIUM CHLORIDE 0.9% 1000ML 1,000 ML IV STA (12:09)
[2019-12-31] MEDS ORDERED: ONDANSETRON HCL INJ 2MG/ML 2ML 2 MG/ML VIAL IV STA (12:09)
[2019-12-31] MEDS ORDERED: ACETAMINOPHEN 325 MG TAB PO ONE (12:15)
--- NOTE | 2019-12-31 13:17 | Diagnostic Imaging Report ---
EXAMINATION: CHEST SINGLE (PORTABLE) INDICATION: Chest pain COMPARISON: Chest radiograph 06/17/2019 FINDINGS: LINES/TUBES:None LUNGS:The lungs are well-inflated. No focal consolidation or pulmonary edema. PLEURA:No pleural effusion or pneumothorax. MEDIASTINUM:The cardiomediastinal silhouette appears normal in size and shape. BONES/SOFT TISSUES:No acute osseous injury. ABDOMEN:No free air under the diaphragm. IMPRESSION: No focal pneumonia or pulmonary edema. Signed by: Maurice Mason MD on 12/31/2019 1:13 PM
[2019-12-31] MEDS ORDERED: SODIUM CHLORIDE FLUSH 10 ML SYR INJ PRN (14:00)
[2019-12-31 14:46] LABS: BASOPHILS % 0.4 % (0.0-1.0); EOSINOPHILS % 0.4 % (0.0-6.0); HEMATOCRIT 43.5 % (34.2-44.1); HEMOGLOBIN 15.3 g/dL (12.0-16.0); LYMPHOCYTES # (AUTO) 1.1 (1.0-3.2); LYMPHOCYTES % 21.1 % (18.0-39.1); MEAN CORPUSCULAR HEMOGLOBIN 29.3 pg (28-32); MEAN CORPUSCULAR HGB CONC 35.2 g/dL (31-35); MEAN CORPUSCULAR VOLUME 83.3 fL (81-99); MONOCYTES # (AUTO) 0.5 (0.2-0.8); MONOCYTES % 8.9 % (4.4-11.3); NEUTROPHILS # (AUTO) 3.6 (2.1-6.9); NEUTROPHILS % 68.8 % (38.7-80.0); PLATELET COUNT 223 x10e3/uL (140-360); RED BLOOD COUNT 5.22 x10e6/uL (3.6-5.1); RED CELL DISTRIBUTION WIDTH 11.9 % (11.7-14.4)
[2019-12-31 15:04] LABS: ALANINE AMINOTRANSFERASE 15 IU/L (0-55); ALBUMIN 3.4 g/dL (3.5-5.0); ALBUMIN/GLOBULIN RATIO 0.9 (0.8-2.0); ALKALINE PHOSPHATASE 125 IU/L (40-150); ANION GAP 14.9 mmol/L (8-16); BLOOD UREA NITROGEN 7 mg/dL (7-26); BUN/CREATININE RATIO 11 (6-25); CALCIUM 9.4 mg/dL (8.4-10.2); CARBON DIOXIDE 27 mmol/L (22-29); CHLORIDE 94 mmol/L (98-107); CREATININE, SERUM 0.63 mg/dL (0.57-1.11); EST GLOMERULAR FILTRATION RATE > 60 ML/MIN (60-); GLUCOSE 302 mg/dL (74-118); POTASSIUM 3.9 mmol/L (3.5-5.1); SODIUM 132 mmol/L (136-145)
[2019-12-31 15:11] LABS: CREATINE KINASE MB 0.3 ng/mL (0-5.0)
[2019-12-31 21:01] LABS: BAND NEUTROPHILS % (MANUAL) 2 %; EOSINOPHILS % (MANUAL) 1 % (0-7); LYMPHOCYTES % (MANUAL) 22 % (19-48); METAMYELOCYTES % (MANUAL) 1 % (0-0); MONOCYTES % (MANUAL) 6 % (3.4-9.0); MYELOCYTES % (MANUAL) 1 % (0-0); NEUTROPHILS % (MANUAL) 61 % (40-74); RBC MORPHOLOGY COMMENT NORMAL
[2019-12-31 21:02] LABS: PLATELET ESTIMATE ADEQUATE; PLATELET MORPHOLOGY COMMENT NORMAL
[2020-01-01] MEDS ORDERED: ALBUTEROL/IPRATROPIUM 3 ML NEB ONE (01:06)
[2020-01-01] MEDS ORDERED: ZOLPIDEM TARTRATE 5 MG TAB PO PRN (17:15)
[2020-01-01] MEDS ORDERED: DEXTROSE 50% SYRINGE 50 ML IV PRN (17:30)
[2020-01-01] MEDS ORDERED: PREDNISONE 20 MG TAB PO ONE (17:30)
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
[2020-01-01] MEDS ORDERED: GABAPENTIN 300 MG CAP PO SCH (21:00)
[2020-01-01] MEDS ORDERED: INSULIN REGULAR, HUMAN 100 UNIT/1 ML 3ML VIAL SQ SCH (21:00)
[2020-01-01] MEDS ORDERED: ALBUTEROL SULFATE HFA 8GM INHALATION AEROSOL INH SCH (23:00)
[2020-01-02] MEDS ORDERED: LISINOPRIL 10 MG TAB PO SCH (09:00)
[2020-01-02] MEDS ORDERED: VENLAFAXINE HCL 37.5MG XR CAP PO SCH (09:00)
[2020-01-02] MEDS ORDERED: PREDNISONE 20 MG TAB PO SCH (09:00)
== END 2019-12-31 16:13 | disposition home or self-care (01) ==
LOC: ER 10:09 → ERHOLD 13:46 → UNDOADMOB 13:46
DX: R05 Cough (principal); J02.9 Acute pharyngitis, unspecified; Z11.59 Encounter for screening for other viral diseases; Z77.22 Contact with and (suspected) exposure to environmental tobacco smoke (acute) (chronic); E11.65 Type 2 diabetes mellitus with hyperglycemia; I10 Essential (primary) hypertension; F41.9 Anxiety disorder, unspecified
CPT/HCPCS: 36415; 71045; 80053; 82550; 82553; 83518; 84484; 85025; 87070; 87400; 87633; 87635; 99284

== ENCOUNTER 2020-01-11 13:05 | Emergency (ER) | payer SELFPAY ==
[~2020-01-11] VITALS: Ht 152.4 cm; Wt 62.1 kg
[2020-01-11 13:55] LABS: BASOPHILS # (AUTO) 0.1 (0.0-0.1); BASOPHILS % 0.3 % (0.0-1.0); EOSINOPHILS % 0.3 % (0.0-6.0); HEMATOCRIT 42.7 % (34.2-44.1); HEMOGLOBIN 14.9 g/dL (12.0-16.0); LYMPHOCYTES # (AUTO) 2.6 (1.0-3.2); LYMPHOCYTES % 16.9 % (18.0-39.1); MEAN CORPUSCULAR HEMOGLOBIN 29.5 pg (28-32); MEAN CORPUSCULAR HGB CONC 34.9 g/dL (31-35); MEAN CORPUSCULAR VOLUME 84.6 fL (81-99); MONOCYTES # (AUTO) 0.8 (0.2-0.8); MONOCYTES % 5.5 % (4.4-11.3); NEUTROPHILS # (AUTO) 11.6 (2.1-6.9); NEUTROPHILS % 76.5 % (38.7-80.0); PLATELET COUNT 309 x10e3/uL (140-360); RED BLOOD COUNT 5.05 x10e6/uL (3.6-5.1); RED CELL DISTRIBUTION WIDTH 12.3 % (11.7-14.4)
[2020-01-11 14:08] LABS: ALANINE AMINOTRANSFERASE 20 IU/L (0-55); ALBUMIN 3.4 g/dL (3.5-5.0); ALBUMIN/GLOBULIN RATIO 0.9 (0.8-2.0); ALKALINE PHOSPHATASE 160 IU/L (40-150); ANION GAP 16.6 mmol/L (8-16); BLOOD UREA NITROGEN 11 mg/dL (7-26); BUN/CREATININE RATIO 13 (6-25); CALCIUM 9.6 mg/dL (8.4-10.2); CARBON DIOXIDE 24 mmol/L (22-29); CHLORIDE 97 mmol/L (98-107); CREATININE, SERUM 0.85 mg/dL (0.57-1.11); EST GLOMERULAR FILTRATION RATE > 60 ML/MIN (60-); POTASSIUM 3.6 mmol/L (3.5-5.1); SODIUM 134 mmol/L (136-145)
[2020-01-11 14:09] LABS: GLUCOSE 526 mg/dL (74-118)
[2020-01-11] MEDS ORDERED: SODIUM CHLORIDE 0.9% 1000ML 1,000 ML IV STA (14:09)
[2020-01-11] MEDS ORDERED: AMOXICILLIN/CLAVULANATE K 875 MG TAB PO STA (14:14)
[2020-01-11] MEDS ORDERED: CLINDAMYCIN PHOS 900MG/ 50ML 50 ML IV ONE (14:15)
[2020-01-11] MEDS ORDERED: INSULIN REGULAR, HUMAN 100 UNIT/1 ML 3ML VIAL IV ONE (14:15)
[2020-01-11] MEDS ORDERED: HYDROCODONE/APAP 10MG-325MG TAB PO ONE (14:30)
--- NOTE | 2020-01-11 14:34 | Diagnostic Imaging Report ---
EXAMINATION: HAND 3+ VIEWS LEFT INDICATION: Hand pain, cat scratch COMPARISON: None FINDINGS: No acute fracture or dislocation. Alignment appears anatomic. No substantial degenerative change. Mild soft tissue swelling along the dorsum of the hand. IMPRESSION: Mild dorsal hand soft tissue swelling without underlying acute osseous injury. Signed by: Maurice Mason MD on 01/11/2020 2:31 PM
[2020-01-11] MEDS ORDERED: LIDOCAINE HCL 1% LOCAL INJ 20 ML VIAL ONE (14:39)
[2020-01-11 15:21] VITALS: BP 134/87
== END 2020-01-11 15:29 | disposition home or self-care (01) ==
LOC: ER 13:05
DX: L02.512 Cutaneous abscess of left hand (principal); W55.03XD Scratched by cat, subsequent encounter; Y92.008 Other place in unspecified non-institutional (private) residence as the place of occurrence of the external cause
CPT/HCPCS: 10060; 36415; 73130; 80053; 82948; 85025; 99284; J1817; J2001; J7030

== ENCOUNTER 2020-06-13 14:06 | Emergency (ER) | payer SELFPAY ==
[~2020-06-13] VITALS: Ht 152.4 cm; Wt 62.6 kg
[2020-06-13] MEDS ORDERED: SODIUM CHLORIDE 0.9% 1000ML 1,000 ML IV STA ×2 (14:28→15:12)
[2020-06-13 14:48] LABS: BASOPHILS % 0.5 % (0.0-1.0); EOSINOPHILS # (AUTO) 0.1 (0.0-0.4); EOSINOPHILS % 0.9 % (0.0-6.0); HEMATOCRIT 41.1 % (34.2-44.1); LYMPHOCYTES # (AUTO) 2.6 (1.0-3.2); LYMPHOCYTES % 32.7 % (18.0-39.1); MEAN CORPUSCULAR HEMOGLOBIN 28.5 pg (28-32); MEAN CORPUSCULAR HGB CONC 34.1 g/dL (31-35); MEAN CORPUSCULAR VOLUME 83.5 fL (81-99); MONOCYTES # (AUTO) 0.5 (0.2-0.8); MONOCYTES % 6.3 % (4.4-11.3); NEUTROPHILS # (AUTO) 4.7 (2.1-6.9); NEUTROPHILS % 59.3 % (38.7-80.0); PLATELET COUNT 302 x10e3/uL (140-360); RED BLOOD COUNT 4.92 x10e6/uL (3.6-5.1); RED CELL DISTRIBUTION WIDTH 12.1 % (11.7-14.4)
[2020-06-13 14:59] LABS: BILIRUBIN,URINE NEGATIVE (NEGATIVE); CLARITY,URINE CLEAR (CLEAR); COLOR,URINE YELLOW (YELLOW); KETONES,URINE NEGATIVE (NEGATIVE); LEUKOCYTE ESTERASE ,URINE NEGATIVE (NEGATIVE); NITRITE,URINE NEGATIVE (NEGATIVE); PROTEIN,URINE DIPSTICK NEGATIVE (NEGATIVE); URINE UROBILINOGEN 0.2 mg/dL (0.2 - 1)
[2020-06-13 15:01] LABS: AMPHETAMINES SCREEN,URINE NEGATIVE (NEGATIVE); BENZODIAZEPINES SCREEN,URINE NEGATIVE (NEGATIVE); PHENCYCLIDINE SCREEN,URINE NEGATIVE (NEGATIVE)
[2020-06-13 15:02] LABS: INR 0.85
[2020-06-13 15:03] LABS: PARTIAL THROMBOPLASTIN TIME 29.7 seconds (23.8-35.5)
[2020-06-13 15:07] LABS: ALBUMIN 4.7 g/dL (3.5-5.0)
[2020-06-13 15:13] LABS: BACTERIA,URINE RARE /HPF
[2020-06-13 15:14] LABS: ALBUMIN/GLOBULIN RATIO 1.6 (0.8-2.0); ANION GAP 21.8 mmol/L (8-16); CALCIUM 9.9 mg/dL (8.4-10.2); CREATININE, SERUM 1.04 mg/dL (0.57-1.11); MAGNESIUM 1.7 MG/DL (1.3-2.1); POTASSIUM 3.8 mmol/L (3.5-5.1)
--- NOTE | 2020-06-13 15:16 | NUR ---
post void bladder scan of [address] Mccloud
--- NOTE | 2020-06-13 15:22 | Diagnostic Imaging Report ---
TECHNIQUE: Frontal view of the chest. INDICATION: ^OFF-BALANCE ^[id number] ^1430 COMPARISON: 12/31/2019 DISCUSSION: Limited evaluation due to portable technique. Lines and hardware: None. Heart and mediastinum: Stable. Lungs and pleura: No focal airspace consolidation. No pleural effusion. No pneumothorax. Soft tissues and bones: No acute abnormality. IMPRESSION: Negative for acute intrathoracic process. Signed by: Merritt Posada MD on 06/13/2020 3:18 PM
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
--- OUTSIDE RECORDS SUMMARY | 2020-06-13 15:30 | XMS REPORT | Continuity of Care Document ---
Author Author Latasha Owens YOLETTE MARRERO [id number] Address Unknown Phone Unavailable Care Team Providers Care Sailmaker Name Role Phone [employer] Information Exchange Unavailable Un available Problems Problem Status Onset Date Classification Date Reported Comments Source HAND PAIN Active 08/06/2013 [facility] Medications No Data Provided for This Section Allergies, Adverse Reactions, Alerts No Known Medication Allergies Immunizations No Data Provided for This Section Results No Data Provided for This Section Pathology Reports No Data Provided for This Section Diagnostic Reports Report Value Date Source Hand AP lateral EXAM: XR LEFT HAND 3 VIEWS DATE: 08/06/2013 INDICATION: Erythema COMPARISON: None. TECHNIQUE: 3 views of the left hand DISCUSSION: No acute fracture or malalignment is identified. No soft tissue abnormality is identified. IMPRESSION: No abnormality identified. 08/06/2013 [facility] Consultation Notes No Data Provided for This Section Discharge Summaries No Data Provided for This Section History and Physicals No Data Provided for This Section Vital Signs No Data Provided for This Section Encounters Location Location Details Encounter Type Encounter Number Reason For Visit Attending Provider ADM Date DC Date Status Source [facility] Emergency [id number] MANUEL GARCIA 08/06/2013 08/06/2013 Discharged [facility] Procedures No Data Provided for This Section Assessment and Plan No Data Provided for This Section Plan of Care No Data Provided for This Section Social History No Data Provided for This Section Family History No Data Provided for This Section Advance Directives No Data Provided for This Section Functional Status No Data Provided for This Section
--- OUTSIDE RECORDS SUMMARY | 2020-06-13 15:30 | XMS REPORT | Clinical Summary ---
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 No osseous erosion. Signed By: Yazan Terrazas MD, 11/23/2019 2: 43 PM Narrative Performed At Exam: Radiographs of the left knee SMS History: Pain Comparison: None. DISCUSSION: No fracture or disl ocation. Mild tricompartmental degenerative arthrosis. No osseous eros ion. No abnormal soft tissue calcification or soft tissue defect. Procedure Note Interface, Rad/Mammog In - 11/23/2019 2:48 PM [employer] Exam: Radiographs of the left knee History: Pain Comparison: None. DISCUSSION: No fracture or dislocation. Mild tricompartmental degenerative arthrosis. No osseous erosion. No abnormal soft tissue calcification or soft tissue defect. IMPRESSION IMPRESSION: Mild tricompartmental degenerative arthrosis. No osseous erosion. Signed By: Yazan Terrazas MD, 11/23/2019 2:43 PM Performing Organization Address [facility] one Number [facility] * Creatinine (10/21/2019 11:11 AM [employer]) Creatinine 0.6 0.6 - 1.2 mg/dL [facility] GFR, Estimated >90 >=90 mL/min/1.73 m2 [facility] Specimen Blood Performing Organization Address [facility] one Number [facility] [address] [place] [address] [phone] * Hemoglobin A1C (10/21/2019 11:11 AM [employer]) Only the most recent of 2 results within the time period is included. Hemoglobin A1c 14.5 (H) 4.3 - 6.1 % [facility] Estimated 369 (H) 70 - 110 mg/dL [facility] Average Glucose LABOR[facility]ORY Specimen Blood Performing Organization Address [facility] one Number [facility] [address] [place] [address] * Electrolytes (10/21/2019 11:11 AM [employer]) Sodium 134 (L) 136 - 145 mmol/L [facility] Potassium 4.3 3.5 - 5.1 mmol/L [facility] Chloride 92 (L) 98 - 107 mmol/L [facility] CO2 30 21 - 31 mmol/L [facility] Anion Gap 12 5 - 16 mmol/L [facility] Specimen Blood Performing Organization Address [facility] one Number [facility] [address] [place] [address] * ALT/AST (10/21/2019 11:11 AM [employer]) ALT 14 7 - 52 U/L [facility] AST 12 (L) 13 - 39 U/L [facility] Specimen Blood Performing Organization Address [facility] one Number [facility] [address] [place] [address] * XRAY SPINE THORACIC 2 VIEWS (08/30/2019 2:43 PM [employer]) Specimen Impressions Performed At IMPRESSION: SMS 1. Please note that thoracic spine ra diography is not a sensitive nor specific modality to assess for spine o steomyelitis/discitis. 2. Multilevel degenerative changes of the thoracic spine. Dictated By: Sanjay Velasquez MD, 08/30/2019 2:45 PM I have reviewed the study and agree wit h the findings in this report. Signed By: Yazan Terrazas MD, 08/30/2019 2 :46 PM Narrative Performed At EXAM: XRAY SPINE THORACIC 2 VIEWS - 2 VIEW(S) SMS HISTORY: overlying cellulitis over T10- 11 spine, uncontrolled diabetes COMPARISON: None DISCUSSION: Mild S shaped curvature of the thoracic spine. No displaced fracture or compression de formity. Multilevel disc space narrowing. Visualized lungs, pleura, and cardiomed iastinal silhouette appear unremarkable. Procedure Note Interface, Rad/Mammog In - 08/30/2019 2:51 PM [employer] EXAM: XRAY SPINE THORACIC 2 VIEWS - 2 VIEW(S) HISTORY: overlying cellulitis over T10-11 spine, uncontrolled diabetes COMPARISON: None DISCUSSION: Mild S shaped curvature of the thoracic spine. No displaced fracture or compression deformity. Multilevel disc space narrowing. Visualized lungs, pleura, and cardiomediastinal silhouette appear unremarkable. IMPRESSION IMPRESSION: 1. Please note that thoracic spine radi ography is not a sensitive nor specific modality to assess for spine osteomyelitis/discitis. 2. Multilevel degenerative changes of t he thoracic spine. Dictated By: Sanjay Velasquez MD, 08/30/2019 2:45 PM I have reviewed the study and agree with the findings in this report. Signed By: Yazan Terrazas MD, 08/30/2019 2:46 PM Performing Organization Address City/State/Zipcode Ph one Number [facility] * DIABETIC FOOT EXAM (08/14/2019 11:47 AM CDT) Narrative Performed At Ena Stevens PA 08/14/2019 7:30 PM Diabetic Foot Exam was performed at 08/14/2019 11:47 AM. Right foot sensation is normal, right foot pulses are normal, right foot appearance is normal. Left foot sensation is nor mal, left foot pulses are normal, left foot appearance is normal. * OPHTHALMOLOGY RETINAL SCAN (08/03/2019 9:20 AM CDT) RETINAL NORMAL [facility] SCAN-FINAL RESULT Right Diabetic None [facility] Retinopathy Right Macular None [facility]IS Edema Right Other None [facility] Suspected Conditions Right Image Gradeable Image IRIS Quality Left Diabetic None [facility] Retinopathy Left Macular None IRIS Edema Left Other None IRIS Suspected Conditions Left Image Gradeable Image IRIS Quality Specimen Narrative Performed At Retinal Study Result for LAW YOLETTEYOLETTE CARRERO a 44 y/o, F (: 1975 , ) presented to [facility] on 08-03-2019 for a retinal imaging study of the left and r ight eyes. Based on the findings of the study, the following is recommended for YOLETTE VILLA Normal Scan: Please advise the patient to return for another scan in 1 year. Interpreting Provider's Comments: No comments provided Right Eye Findings: Normal Result. Negative for Diabetic Retinopathy. Left Eye Findings: Normal Result. Negative for Diabetic Retinopathy. This result was electronically signed Skyler Jacob MD, , Taxonomy: [id number] on 08-03-2019 02:3 1:57 [facility] time. NOTE: Any pathology noted on this fidel betic retinal evaluation should be confirmed by an appropriate ophthalmic examination. Performing Organization Address [facility] one Number [facility] * POCT BMP POC docked device (07/27/2019 12:35 PM CDT) [facility] Sodium POC 137 136 - 145 mmol/L [facility] Potassium POC 3.7 3.5 - 5.1 mmol/L [facility] Chloride POC 96 (L) 98 - 107 mmol/L [facility] TCO2 POC 29 21 - 32 mmol/L [facility] Urea Nitrogen 5 (L) 7 - 18 mg/dL [facility] Creatinine POC 0.5 (L) 0.6 - 1.3 mg/dL [facility] Glucose POC 285 (H) 74 - 106 mg/dL [facility] Ionized Calcium 1.17 1.15 - 1.29 mmol/L [facility] GFR, Estimated >90 >=90 mL/min/1.73 m2 [facility] Specimen Blood, venous Performing Organization Address [facility] one Number [facility] [address] [place] [address] [facility] * Chlam/GC DNA Amplification (07/27/2019 12:23 PM CDT) [facility] Chlamydia Negative Negative [facility] trachomatis [facility] N. gonorrhoeae Negative Negative [facility] Specimen Urine - Voided, urine Narrative Performed At This test utilizes Clear Standards Aptima Combo 2 Assay for target amplification of rRNA [facility] for the qualitative detection of Chlamy fidel trachomatis and Neisseria gonorrhoeae. Performing Organization Address [facility] one Number [facility] [address] [place] [address] * Urine Drug Screen (07/27/2019 12:23 PM CDT) [facility] Opiate, Ur Positive (A) Negative [facility] Comment: [facility] Calibrated Standard: Morphine Positive if urine level > or = 300 ng/dL Amphetamine Negative Negative [facility] Comment: [facility] Calibrated Standard: D-Methamphetamine Positive if urine level > or = 1000 ng/mL Barbiturate Negative Negative [facility] Comment: [facility] Calibrated Standard: Secobarbital Positive if urine level is > or = 200 ng/mL Benzodiazepine Negative Negative [facility] Comment: [facility] Calibrated Standard: Lormethazepam Positive if urine level is > or = 200 ng/mL Cocaine Negative Negative [facility] Comment: [facility] Calibrated Standard: Benzoylecgonine Positive if urine level > or = 300 ng/dL PCP Negative Negative [facility] Comment: [facility] Calibrated Standard: Phencyclidine Positive if urine level > or = 25 ng/dL Cannabinoid Negative Negative [facility] Comment: [facility] Calibrated Standard: 11 nor-delta(9)-THC carboxylic acid Positive if urine level > or = 50 ng/mL Specimen Urine - Voided, urine Performing Organization Address City/State/Zipcode Ph one Number [facility] [address] [place] [address] [phone] * CBC/Diff (07/27/2019 12:01 PM CDT) WBC 4.6 4.5 - 11.0 K/uL [facility] RBC 4.79 4.20 - 5.40 M/uL [facility] Hemoglobin 13.9 12.0 - 16.0 g/dL [facility] Hematocrit 41.8 37.0 - 47.0 % [facility] MCV 87.3 82.0 - 92.0 fL [facility] MCH 29.0 27.0 - 32.0 pg [facility] MCHC 33.3 32.0 - 36.0 g/dL [facility] RDW 39.8 36.4 - 46.3 fL [facility] Platelet 240 150 - 400 K/uL [facility] Mean Platelet 11.6 9.4 - 12.4 fL [facility] Volume [facility] Percent NRBC 0.0 % [facility] Neutrophil 52.2 34.0 - 70.0 % [facility] Lymphs 37.9 20.0 - 50.0 % [facility] Monocytes 8.4 5.0 - 12.0 % [facility] Eos 0.9 0.7 - 5.0 % [facility] Basos 0.6 0.1 - 1.2 % [facility] Immature 0.0 0.0 - 0.5 % [facility] Granulocytes [facility] Neutrophils 2.41 1.56 - 6.13 K/uL [facility] (Absolute) [facility] Lymphs 1.75 1.18 - 3.74 K/uL [facility] (Absolute) [facility] Monocytes(Absol 0.39 (H) 0.24 - 0.36 K/uL [facility] telida) LABORATORY Eos (Absolute) 0.04 0.04 - 0.36 K/uL [facility] Baso (Absolute) 0.03 0.01 - 0.08 K/uL [facility] Immature Grans 0.00 0.00 - 0.03 K/uL [facility] (Abs) [facility] Absolute NRBC 0.00 K/uL [facility] Specimen Blood - Arm, left Performing Organization Address [facility] one Number [facility] [address] [place] [address] [phone] * Syphilis Screen for Infection (07/27/2019 12:01 PM CDT) [facility] TPA Negative Negative, Equivocal [facility] Final Report Negative Negative [facility] Specimen Blood Performing Organization Address [facility] Number [facility] [address] [place], [place] [id number] * HIV-1/HIV-2 Routine Screening (07/27/2019 12:01 PM CDT) [facility] HIV Ag/Ab Combo Negative Negative [facility] Specimen Blood - Arm, left Performing Organization Address [facility] one Number [facility] [address] [place], [place] [phone] * POC BMP - In Lab (STAT) (07/27/2019 12:01 PM CDT) [facility] Hold Specimen Complete [facility] Specimen Blood Performing Organization Address [facility] one Number [facility] [address] [place] [address] [facility] * TSH [Thyroid Stimulating Hormone] (07/27/2019 12:01 PM CDT) [facility] TSH 1.41 0.57 - 3.74 uIU/mL [facility] Comment: LABOR[facility] If , please see the following reference ranges (not verified by lab): 1st Trimester: 0.05 -3.70 uIU/mL 2nd Trimester: 0.31 -4.35 uIU/mL 3rd Trimester: 0.41 - 5.18 uIU/mL Specimen Blood - Arm, left Performing Organization Address [facility] one Number [facility] [address] [place], [place] [id number] [phone] * Liver Profile (07/27/2019 12:01 PM CDT) Pathologist [facility] Total Protein 6.7 6.0 - 8.3 g/dL [facility] Bilirubin, 0.3 0.2 - 1.2 mg/dL [facility] Total [facility] Alkaline 93 34 - 104 U/L [facility] Phosphatase [facility] AST 14 13 - 39 U/L [facility] Direct 0.0 0.0 - 0.2 mg/dL [facility] Bilirubin [facility] ALT 13 7 - 52 U/L [facility] Albumin 4.3 3.7 - 5.3 g/dL [facility] Specimen Blood - Arm, left Performing Organization Address [facility] one Number [facility] [address] [place], [place] [id number] [phone] * Lipid Profile (07/27/2019 12:01 PM CDT) [facility] Cholesterol 221.0 (H) <=200.0 mg/dL [facility] Triglyceride 308 (H) <150 mg/dL [facility] HDL 41.0 See Reference Range [facility] Narrative. mg/dL LAB[facility]ORY LDL 118 (H) <100 mg/dL [facility] Comment: [facility] Optimal: < 100.0 mg/dL Near Optimal: 120-129 mg/dL Borderline: 130-159 mg/dL High: 160-189 mg/dL Very High: >=190 mg/dL Patient Yes [facility] Fasting? LABORAT[facility] Specimen Blood - Arm, left Performing Organization Address [facility] one Number [facility] [address] [place], [place] [phone] * Hepatitis Panel (07/27/2019 12:01 PM CDT) Pathologist [facility] Hepatitis C Negative Negative [facility] Virus (HCV) LAB[facility] Antibody Hep B Surface Negative Negative [facility] Ag [facility] Hep A Vir Ab Negative Negative [facility] IgM [facility] Hep B Core Ab Negative Negative [facility] IgM [facility] Specimen Blood Performing Organization Address City/State/Zipcode Ph one Number [facility] [address] [place], [place] [phone] after 06/13/2019 Insurance Type Payer Benefit Subscriber ID Effective Phone Address Plan / Dates Group [employer] SELF-PAY SELF-PAY xxxxxxxxx 2020- [phone] [id number] [place] [address]
--- OUTSIDE RECORDS SUMMARY | 2020-06-13 15:32 | XMS REPORT | Continuity of Care Document ---
Author Author [facility] t Organization [facility] t Address 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 Name Role Phone NO, PCP PCP Unavailable DIEGO BEE Attphys Unavailable Maisha PIKE Attphys Unavailable ELIJAH VENEGAS Attphys Unavailable Xavier Thomas Attphys Nohemy Razo MD Attphys Juan Manuel KEVIN, Nessa Iglesias Attphys Unavailable Salazar Segundo Attphys Allyn Duong DO Attphys Yasmin Rodriguez MD Attphys Xavier ISABEL Attphys Unavailable ROSARIO LEMON Attphys Unavailable Malathi Orr Attphys Salazar Barragan Attphys Unavailable Emily Naranjo LVN Attphys Shanita Oakley MD Attphys Joshua COLLIER, Bony Boles Attphys Tracee KEVIN, Aaron Attphys Unavailable Woodrow COLLIER, Chapito Attphys JAZLYN ARZATE Attphys Unavailable Capo COLLIER, Shira Attphys JUVENTINO DUBOSE Attphys Unavailable Farooq DEAN Attphys Unavailable Guillermina JACKSON Attphys Unavailable JAZLYN ARZATE Admphys Unavailable JUVENTINO DUBOSE Admphys Unavailable Payers Payer Name Policy Type Policy Number Effective Date Expiration Date [id number] UNSCREENEDxxxxxxxx [id number] [place] [address] xxxxxxxxx 2020 00:00:00 [facility] Medicare A & B [id number] [facility] Medicare Complete [id number] [facility] Miscellaneous Hmo [id number] 2018 00:00:00 [facility] [employer] [id number] [facility] Problems Condition Name Condition Details Condition Category Status Onset Date Resolution Date Last Treatment Date Treating Clinician Comments Source Chronic pain of both knees Chronic pain of both knees Disease Active 2020-02-15 00:00:00 [facility] Pain in joint, ankle and foot Pain in joint, ankle and foot Disease Active 2020-02-15 00:00:00 Overview: Bilateral f oot pain [facility] Neuropathy of both feet Neuropathy of both feet Disease Active 2020-02-15 00:00:00 [facility] Diabetic neuropathy associated with type 1 diabetes me llitus Diabetic neuropathy associated with type 1 diabetes mellitus Disease Active 2020-02-15 00:00: 00 [facility] Dehydration Dehydration Problem Active 2015-05-14 00:00:00 [facility] Dehydration fever Dehydration fever Problem Active 2015-05-14 00:00:00 [facility] Gastroenteritis Gastroenteritis Problem Active 2015-05-14 00:00:00 [facility] Reactive airway disease Reactive airway disease Problem Active 2015-05-14 00:00:00 [facility] Uncontrolled blood glucose Uncontrolled blood glucose Problem Active 2015-05-14 00:00:00 [facility] Acute asthma Problem Active 2014-06-05 00:00:00 [facility] HAND PAIN HAND PAIN Active 08/06/2013 [facility] Diagnosis Active 2013-08-06 00:00:00 2013-08-06 14:53:00 [facility] Perirectal abscess Perirectal abscess Problem Active [facility] Abscess Abscess Problem Active [facility] Cellulitis Cellulitis Problem Active [facility] Herpes zoster Shingles Problem Active [facility] Tinea corporis Tinea corporis Disease Active [facility] Arthritis Arthritis Disease Active [facility] Allergies, Adverse Reactions, Alerts Allergy Name Allergy Type Status Severity Reaction(s) Onset Date Inacti ve Date Treating Clinician Comments Source metformin DA Active 2020-02-21 00:00:00 [facility] Penicillins DA Active 2020-01-09 00:00:00 [facility] Sulfa (Sulfonamide Antibiotics) DA Active 2020-01-09 00 :00:00 [facility] ibuprofen DA Active 2020-01-09 00:00:00 [facility] metformin DA Active 2020-01-09 00:00:00 [facility] Sulfa (Sulfonamide Antibiotics) Allergy to Substance Active Moder ate ITCH 2019-10-10 00:00:00 [facility] promethazine HCl Allergy to Substance Active Mild ITCHING 2019-08-19 00:00:00 [facility] Metformin Allergy to Substance Active Severe TONGUE SWELLING 2019-08-19 00:00:00 [facility] Metformin Propensity to adverse reactions to drug Active 2019-07-27 00:00:00 [facility] Sulfa (Sulfonamide Antibiotics) Propensity to adverse reactions to drug Active 2019-07-27 00:00:00 [facility] Penicillins DA Active 2019-07-23 00:00:00 [facility] Sulfa (Sulfonamide Antibiotics) DA Active SV 2019-07-23 00 :00:00 [facility] ibuprofen DA Active SV 2019-07-23 00:00:00 [facility] metformin DA Active SV 2019-07-23 00:00:00 [facility] Penicillins DA Active SV 2019-06-17 00:00:00 [facility] Sulfa (Sulfonamide Antibiotics) DA Active SV 2019-06-17 00 :00:00 [facility] ibuprofen DA Active SV 2019-06-17 00:00:00 [facility] metformin DA Active SV 2019-06-17 00:00:00 [facility] Penicillins DA Active SV 2018-03-15 00:00:00 [facility] Sulfa (Sulfonamide Antibiotics) DA Active SV 2018-03-15 00 :00:00 [facility] ibuprofen DA Active SV 2018-03-15 00:00:00 [facility] metformin DA Active SV 2018-03-15 00:00:00 [facility] Social History Social Habit Start Date Stop Date Quantity Comments Source Sex Assigned At [facility] Exposure to SARS-CoV-2 (event) Not sure [facility] Alcohol intake 2020-04-27 00:00:00 2020-04-27 00:00:00 Ex-drinker (fi nding) [facility] History SDOH Food Worry 2019-07-27 00:00:00 2019-07-27 00:00:00 1 [facility] Food Scarcity 2019-07-27 00:00:00 2019-07-27 00:00:00 1 [facility] Smoking Status Start Date Stop Date Source Never smoker [facility] Medications Ordered Medication Name Filled Medication Name Start Date Stop Da te Current Medication? Ordering Clinician Indication Dosage Frequency Signature (SIG) Comments Components Source venlafaxine (EFFEXOR XR) 150 mg extended release capsule 2020-05-15 00:00:00 Yes Medication refill 300mg QD Take 2 capsules by abelino th daily. [facility] naproxen (NAPROSYN) 500 mg tablet 2020-05-15 00:00:00 Yes Medication refill 500mg Take 1 tablet by mouth 2 times daily (with meal s). [facility] DULoxetine (CYMBALTA) 30 mg delayed release capsule 05-15 00:00:00 Yes Diabetic autonomic neuropathy associated with type 2 diabetes me llitus 30mg QD Take 1 capsule by mouth daily. Torreon Brandon dalton hydrOXYzine (ATARAX) 25 mg tablet 2020-05-15 00:00:00 Yes Insomnia, unspecified type Take 1/2 to 1 tablet by mouth daily as needed for anxiety and take 1 to 2 tablets at bedtime as needed for sleep. [facility] empagliflozin (JARDIANCE) 10 mg tablet 2020-05-08 00:00:00 Yes Inadequately controlled diabetes mellitus 10mg Take 1 tablet by mouth every morning. [facility] pen needle, diabetic 31 gauge x 3/16" needles 2020-05-08 00: 00:00 Yes Poorly controlled diabetes mellitus Inject under the s kin 5 times daily. [facility] blood glucose test strips 2020-05-08 00:00:00 Yes Poorly controlled diabetes mellitus 3 times daily to test blood sugar. [facility] ketorolac (TORADOL) injection 60 mg 2020-04-27 12:15:0 0 2020-04-27 12:30:00 No Left elbow pain 60mg [facility] ravinder ibuprofen (MOTRIN) 800 mg tablet 2020-04-24 00:00:00 Yes Acute pain of left knee 800mg Take 1 tablet by mouth every 8 hours as needed for Pain. [facility] Cyclobenzaprine (FLEXERIL) 5 mg tablet 2020-04-12 3 00:00:00 2021-04-24 23:59:00 Yes Acute pain of left knee 5mg T reynold 1 tablet by mouth nightly at bedtime as needed for Muscle Spasms. [facility] mirtazapine (REMERON) 15 mg tablet 2020-04-20 00:00:00 Yes Moderate episode of recurrent major depressive disorder 15mg Take 1 tablet by mouth at bedtime nightly. [facility] venlafaxine (EFFEXOR XR) 150 mg extended release capsule 2020-04-20 00:00:00 2020-05-15 00:00:00 No Depression, unspecified depression typ e 300mg QD Take 2 capsules by mouth daily. [facility] hydrOXYzine (ATARAX) 25 mg tablet 2020-04-20 00:00:00 2019 00:00:00 No PTSD (post-traumatic stress disorder) Take 1/2 to 1 tablet by mouth daily as needed for anxiety and take 1 to 2 tablets at bedtime as needed for sleep. [facility] Cyclobenzaprine (FLEXERIL) 5 mg tablet 7 00:00:2020-04-24 00:00:00 No Acute pain of left knee 5mg T reynold 1 tablet by mouth nightly at bedtime as needed for Muscle Spasms. [facility] ibuprofen (MOTRIN) 800 mg tablet 2020-03-14 00:00:00 2020-04 00:00:00 No Acute pain of left knee 800mg Take 1 tablet by mouth every 8 hours as needed for Pain. [facility] Cyclobenzaprine (FLEXERIL) 5 mg tablet 2 00:00:2020-04-18 00:00:00 No Acute pain of left knee 5mg T reynold 1 tablet by mouth nightly at bedtime as needed for Muscle Spasms. [facility] ibuprofen (MOTRIN) 800 mg tablet 2020-03-14 00:00:00 2020-03 00:00:00 No Acute pain of left knee 800mg Take 1 tablet by mouth every 8 hours as needed for Pain. [facility] empagliflozin (JARDIANCE) 10 mg tablet 2020-02-11 8 00:00:00 2020-05-08 00:00:00 No Inadequately controlled diabetes mellitus 10mg Take 1 tablet by mouth every morning. [facility] venlafaxine (EFFEXOR XR) 150 mg extended release capsule 2020-02-28 00:00:00 2020-04-20 00:00:00 No Depression, unspecified depression typ e 300mg QD Take 2 capsules by mouth daily. [facility] gabapentin (NEURONTIN) 300 mg capsule 2020-02-15 00:00 :00 2020-05-15 00:00:00 No Diabetic autonomic neuropathy associated with type 1 diabetes mellitus 300mg Take 1 capsule by mouth 4 ti mes daily 1 capsule at 8:30am and 1 capsule at 2pm and 2 capsules at 8pm. [facility] naproxen (NAPROSYN) 500 mg tablet 2020-02-15 00:00:00 2019 00:00:00 No Chronic pain of both knees 500mg Take 1 tablet by mouth 2 times daily (with meals). [facility] hydrOXYzine (ATARAX) 25 mg tablet 2020-02-03 00:00:00 2019 00:00:00 No PTSD (post-traumatic stress disorder) Take 1/2 to 1 tablet by mouth daily as needed for anxiety and take 1 to 2 tablets at bedtime as needed for sleep. [facility] escitalopram (LEXAPRO) 10 mg tablet 2020-02-03 00:00:0 0 2020-02-28 00:00:00 No PTSD (post-traumatic stress disorder) Take 1/2 tablet by mouth daily for 2 weeks, then take 1 tablet daily. [facility] insulin aspart U-100 (NOVOLOG FLEXPEN) 100 unit/mL (3 mL) pe n 2020-02-02 00:00:00 Yes Poorly controlled diabetes mellitus 15U Inject 15 Units under the skin 3 times daily do not skip meals. [facility] insulin detemir U-100 (LEVEMIR FLEXTOUCH) 100 unit/mL (3 mL) Pen 2020-02-02 00:00:00 Yes Poorly controlled diabetes mellitus 35U Q.5D Inject 35 Units under the skin 2 times daily. [facility] linaGLIPtin (TRADJENTA) 5 mg tablet 2020-02-02 00:00:00 Yes Poorly controlled diabetes mellitus 5mg QD Take 1 tablet by mouth daily. [facility] pen needle, diabetic 31 gauge x 3/16" needles 20 30-01-22 00:00:00 2020-05-08 00:00:00 No Poorly controlled diabetes mellitus Inject under the skin 5 times daily. [facility] gabapentin (NEURONTIN) 300 mg capsule 2019-12-11 00:00 :00 2019-12-21 23:59:00 No Chronic pain of both knees 300mg T reynold 1 capsule by mouth 3 times daily for 10 days. [facility] naproxen (NAPROSYN) 500 mg tablet 2019-12-11 00:00:00 2019 23:59:00 No Chronic pain of both knees 500mg Take 1 tablet by mouth 2 times daily (with meals) for 10 days. [facility] clotrimazole 1 % Oint 2019-12-11 00:00:00 2019-12-21 23:59:0 0 No Tinea corporis Apply to affected area 3 times daily for 10 day s. [facility] acetaminophen-codeine (TYLENOL/CODEINE #3) 300-30 mg per tab let 2019-11-18 00:00:00 Yes Acute pain of left knee 1{tbl} Take 1 tablet by mouth every 12 hours as needed for Pain. [facility] ibuprofen (MOTRIN) 600 mg tablet 2019-11-18 00:00:00 2020-03 00:00:00 No Acute pain of left knee 600mg Take 1 tablet by mouth every 8 hours as needed for Pain. [facility] busPIRone (BUSPAR) 10 mg tablet 2019-11-18 00:00:00 00:00:00 No Depression, unspecified depression type 10mg Take 1 tablet by mouth 3 times daily. [facility] venlafaxine (EFFEXOR XR) 150 mg extended release capsule 2019-11-18 00:00:00 2020-02-03 00:00:00 No Depression, unspecified depression typ e 300mg QD Take 2 capsules by mouth daily. [facility] naproxen (NAPROSYN) 500 mg tablet 2019-11-10 00:00:00 2019 11:32:05 No Acute pain of left knee 500mg Take 1 t ablet by mouth 2 times daily (with meals). [facility] gabapentin (NEURONTIN) 300 mg capsule 2019-11-10 00:00 :00 2019-12-11 00:00:00 No Encounter for medication refill 300mg Take 1 capsule by mouth 3 times daily [facility] blood glucose meter 2019-08-30 00:00:00 Yes Poorly controlled diabetes mellitus Use as directed.. [facility] lancets 28 gauge 2019-08-30 00:00:00 Yes Poorly controlled diabetes mellitus by MISCELLANEOUS route 3 times daily [facility] ketoconazole (NIZORAL) 2 % topical cream 2019-08-30 00:00:00 Yes Tinea corporis Q.5D Apply to affected area 2 times daily. [facility] blood glucose test strips 2019-08-30 00:00:00 2020-05-08 00: 00:00 No Poorly controlled diabetes mellitus 2 times weekly to test blood sugar. [facility] venlafaxine (EFFEXOR XR) 150 mg extended release capsule 2019-08-30 00:00:00 2020-02-03 00:00:00 No Depression, unspecified depression typ e 150mg QD Take 1 capsule by mouth daily. [facility] insulin detemir U-100 (LEVEMIR FLEXTOUCH) 100 unit/mL (3 mL) Pen 2019-08-30 00:00:00 2020-02-02 00:00:00 No Poorly controlled diabetes low litus 35U Q.5D Inject 35 Units under the skin 2 times daily. [facility] insulin aspart U-100 (NOVOLOG FLEXPEN) 100 unit/mL (3 mL) pe n 2019-08-30 00:00:00 2020-02-02 00:00:00 No Poorly controlled diabetes low litus 10U Inject 10 Units under the skin 3 times daily donot skip meals. [facility] linaGLIPtin (TRADJENTA) 5 mg tablet 2019-08-30 00:00:0 0 2020-02-02 00:00:00 No Poorly controlled diabetes mellitus 5mg QD Take 1 table t by mouth daily. [facility] acetaminophen-codeine (TYLENOL/CODEINE #3) 300-30 mg per tab let 2019-08-30 00:00:00 2019-11-18 00:00:00 No Herpes zoster without complica tion 1{tbl} Take 1 tablet by mouth every 12 hours as needed for Pain. [facility] busPIRone (BUSPAR) 10 mg tablet 2019-08-30 00:00:00 00:00:00 No Depression, unspecified depression type 10mg Take 1 tablet by mouth 3 times daily. [facility] clindamycin (CLEOCIN HCL) 300 mg capsule 2019-08 00:00:00 2019-09-09 23:59:00 No Cellulitis of back except buttock 300mg Take 1 capsule by mouth 3 times daily for 10 days. [facility] venlafaxine (EFFEXOR XR) 75 mg extended release capsule 2019-08-30 00:00:00 2019-08-30 00:00:00 No Depression, unspecified depression typ e 75mg QD Take 1 capsule by mouth daily. [facility] Gabapentin 300 Mg Capsule Gabapentin 300 Mg Capsule 2019-08-22 00:00: 00 Yes Aby Urban Client Consultant 600 Three Times A Day [facility] Insulin Npl/Insulin Lispro (Humalog Mix 75-25 Kwikpen) 100 Unit/1 Ml Insuln.pen Insulin Npl/Insulin Lispro (Humalog Mix 75-25 Kwikpen) 100 Unit/1 Ml Insuln.pen 2019-08-22 00:00:00 Yes Aby Urban Client Consultant 40 Twice A Day [facility] Prednisone 20 Mg Tab Prednisone 20 Mg Tab 2019-08-22 00:00:00 Yes Aby M [place] Client Consultant 10 Three Times A Day [facility] Rifampin 300 Mg Capsule Rifampin 300 Mg Capsule 2019-08-22 00:00:00 Yes Aby M [place] Client Consultant 300 Twice A Day [facility] Sulfamethoxazole/Trimethoprim (Bactrim Ds Tablet) 1 Ea ch Tablet Sulfamethoxazole/Trimethoprim (Bactrim Ds Tablet) 1 Each Tablet 2019-08-22 00:00:00 Yes Aby M [place] Client Consultant 1 Twice A Day [facility] Tramadol/Apap 37.5MG-325MG 1 Ea Tab Tramadol/Apap 37.5MG-325 MG 1 Ea Tab 2019-08-22 00:00:00 Yes Aby M [place] Client Consultant 1 Every 6 Hours as needed for Shingles Pain [facility] gabapentin (NEURONTIN) 600 mg tablet 2019-08-14 00:00: 00 2019-09-15 23:59:00 No Herpes zoster without complication 600mg Take 1 tablet by mouth 3 times daily for 30 days. [facility] acetaminophen-codeine (TYLENOL/CODEINE #3) 300-30 mg per tab let 2019-08-14 00:00:00 2019-08-30 00:00:00 No Herpes zoster without complica tion 1{tbl} Take 1 tablet by mouth every 4 hours as needed for Pain. [facility] pen needle, diabetic 31 gauge x 3/16" needles 2019-07-27 00: 00:00 Yes Poorly controlled diabetes mellitus Inject under the s kin 3 times daily. [facility] blood glucose meter 2019-07-27 00:00:00 Yes Poorly controlled diabetes mellitus Use as directed.. [facility] blood glucose test strips 2019-07-27 00:00:00 Yes Poorly controlled diabetes mellitus 3 times daily. [facility] lancets 28 gauge 2019-07-27 00:00:00 Yes Poorly controlled diabetes mellitus Check blood sugar three times daily and as need ed. [facility] pen needle, diabetic 31 gauge x 3/16" needles 20 31-07-15 00:00:00 2020-02-02 00:00:00 No Poorly controlled diabetes mellitus Q.5D Inject under the skin 2 times daily. [facility] tropicamide (MYDRIACYL) 0.5 % ophthalmic solution 2019-07-27 00:00:00 2020-01-23 23:59:00 No Poorly controlled diabetes mellitus 1[ drp] Instill 1 Drop in each eye once as needed for up to 1 dose (for poor retina scan image). [facility] insulin aspart U-100 (NOVOLOG FLEXPEN) 100 unit/mL (3 mL) pe n 2019-07-27 00:00:00 2019-08-30 00:00:00 No Poorly controlled diabetes low litus 5U Inject 5 Units under the skin 3 times daily donot skip meals. [facility] venlafaxine (EFFEXOR XR) 75 mg extended release capsule 2019-07-27 00:00:00 2019-08-30 00:00:00 No Depression, unspecified depression typ e 75mg QD Take 1 capsule by mouth daily. [facility] insulin detemir U-100 (LEVEMIR FLEXTOUCH) 100 unit/mL (3 mL) Pen 2019-07-27 00:00:00 2019-08-30 00:00:00 No Poorly controlled diabetes low litus 35U Q.5D Inject 35 Units under the skin 2 times daily. [facility] gabapentin (NEURONTIN) 300 mg capsule 2019-07-27 00:00 :00 2019-08-14 00:00:00 No Herpes zoster without complication 300mg Take 1 capsule by mouth [address] heavy machinary after taking gabapentin. [facility] valACYclovir (VALTREX) 1 g tablet 2019-07-27 00:00:00 2018 23:59:00 No Herpes zoster without complication 1000mg Take 1 tablet by mouth 3 times daily for 10 days. [facility] insulin detemir U-100 (LEVEMIR FLEXTOUCH) 100 unit/mL (3 mL) Pen 2019-07-27 00:00:00 2019-07-27 00:00:00 No Poorly controlled diabetes low litus 20U Q.5D Inject 20 Units under the skin 2 times daily. [facility] insulin detemir U-100 (LEVEMIR FLEXTOUCH) 100 unit/mL (3 mL) Pen 2019-07-27 00:00:00 2019-07-27 00:00:00 No Poorly controlled diabetes low litus 35U Q.5D Inject 35 Units under the skin 2 times daily. [facility] gabapentin (NEURONTIN) 300 mg capsule 2019-07-27 00:00 :00 2019-07-27 00:00:00 No Herpes zoster without complication 300mg Take 1 capsule by mouth 3 times daily. [facility] Azithromycin (Zithromax) 250 Mg Tablet, 250 Mg Oral Az ithromycin (Zithromax) 250 Mg Tablet, 250 Mg Oral 2018-09-19 00:00:00 2019-08-22 00:00:00 No Crow Carlos Do 250 Daily [facility] Oseltamivir Phosphate (Tamiflu) 75 Mg Cap, 75 Mg Oral Oseltamivir Phosphate (Tamiflu) 75 Mg Cap, 75 Mg Oral 2018-09-19 00:00:00 2019-08-22 00:00:00 No Crow Carlos Do 75 Twice A Day [facility] Acetaminophen With Codeine (Tylenol With Codeine #3 Tablet) 1 Each Tablet, 300 Mg Oral Acetaminophen With Codeine (Tylenol With Codeine #3 Tablet) 1 Each Tablet, 300 Mg Oral 2018-03-19 00:00:00 2019-08-22 00:00:00 No Juventino paul Md 300 Every 8 Hours as needed for Prn [facility] Ciprofloxacin Hcl (Cipro) 500 Mg Tablet, 500 Mg Oral C iprofloxacin Hcl (Cipro) 500 Mg Tablet, 500 Mg Oral 2018-03-19 00:00:00 2019-08-22 00:00:00 Monica Dubose Md 500 Every 12 Hours [facility] Minocycline Hcl 50 Mg Capsule, 100 Mg Oral Minocycline Hcl 50 Mg Capsule, 100 Mg Oral 2018-03-19 00:00:00 2019-08-22 00:00:00 No Juventino Dubose Md 1 00 Twice A Day [facility] Doxycycline Hyclate 100 Mg Capsule, 100 Mg Oral Doxycy mulligan Hyclate 100 Mg Capsule, 100 Mg Oral 2015-02-08 00:00:00 2016-01-02 00:00:00 No Juventino Dubose Md 100 Every 12 Hours [facility] Lrt10 10 Mg Tab, 10 Mg Oral Lrt10 10 Mg Tab, 10 Mg Oral 00:00:00 2016-01-02 00:00:00 No Juventino Dubose Md 10 Daily [facility] Prednisone 20 Mg Tab, 20 Mg Oral Prednisone 20 Mg Tab, 20 Mg Oral 2015-02-08 00:00:00 2016-01-02 00:00:00 Monica Dubose Md 20 Every 12 Hours [facility] Famotidine (Pepcid) 20 Mg Tablet, 20 Mg Oral Famotidin e (Pepcid) 20 Mg Tablet, 20 Mg Oral 2015-02-08 00:00:00 2015-08-28 00:00:00 No Juventino Dubose Md 20 Twice A Day [facility] Lisinopril 10 Mg Tablet Lisinopril 10 Mg Tablet Yes 10 Daily [facility] Venlafaxine Hcl (Effexor Xr 37.5MG Capcr*) 37.5 Mg Cap cr Venlafaxine Hcl (Effexor Xr 37.5MG Capcr*) 37.5 Mg Capcr Yes 150 for Depression [facility] Zolpidem Tartrate (Ambien) 5 Mg Tablet Zolpidem Tartrate (Ambien ) 5 Mg Tablet Yes 5 Bedtime as needed for Insomnia [facility] Citalopram Hydrobromide (Celexa) 40 Mg Tablet, 50 Mg O ral Citalopram Hydrobromide (Celexa) 40 Mg Tablet, 50 Mg Oral 2018-03-19 00:00:00 No 50 Daily [facility] Blood Pressure Pill , Blood Pressure Pill , 2017-03-31 00:00:00 No [facility] Clary Means , 2017-02-20 00:00:00 No [facility] Trigenta , 1 Tab Oral Trigenta , 1 Tab Oral 2017-02-20 00:00:00 No 1 Daily [facility] Azithromycin (Z-Nicholas) 250 Mg Tablet, 250 Mg Oral Azithr omycin (Z-Nicholas) 250 Mg Tablet, 250 Mg Oral 2017-01-03 00:00:00 No 250 [place] y [facility] Exenatide Microspheres (Bydureon) 2 Mg Vial, 1 Vial In tramusc Exenatide Microspheres (Bydureon) 2 Mg Vial, 1 Vial Intramusc 2017-01-03 00:0 0:00 No 1 Qweekly [facility] Ondansetron (Zofran Odt) 4 Mg Tab.rapdis, 4 Mg Oral On dansetron (Zofran Odt) 4 Mg Tab.rapdis, 4 Mg Oral 2017-01-03 00:00:00 No 4 Every 6 Hours [facility] Sertraline Hcl (Zoloft) 100 Mg Tablet, 100 Mg Oral Ser traline Hcl (Zoloft) 100 Mg Tablet, 100 Mg Oral 2017-01-03 00:00:00 No 100 D aily [facility] Doxycycline Hyclate 100 Mg Capsule, 100 Mg Oral Doxycy mulligan Hyclate 100 Mg Capsule, 100 Mg Oral 2016-07-23 00:00:00 No 100 Izzy ry 12 Hours [facility] Acetaminophen With Codeine (Tylenol With Codeine #3 Tablet) 1 Each Tablet, 300 Mg Oral Acetaminophen With Codeine (Tylenol With Codeine #3 Tablet) 1 Each Tablet, 300 Mg Oral 2016-01-19 00:00:00 No 300 Ever y 6 Hours [facility] Cephalexin Monohydrate (Keflex) 500 Mg Capsule, 500 Mg Oral Cephalexin Monohydrate (Keflex) 500 Mg Capsule, 500 Mg Oral 2016-01-19 00:00:00 No 500 Three Times A Day [facility] Albuterol Sulfate 0.63 Mg/3 Ml Vial.neb, 1 Inhalation Albuterol Sulfate 0.63 Mg/3 Ml Vial.neb, 1 Inhalation 2016-01-02 00:00:00 No 1 Every 4 Hours as needed for Shortness Of Breath [facility] Insulin Detemir (Levemir) 100 Unit/1 Ml Vial, 44 Units Sub-Q Insulin Detemir (Levemir) 100 Unit/1 Ml Vial, 44 Units Sub-Q 2016-01-02 00:00:00 No 44 Daily [facility] Insulin Human Lispro (Humalog) 100 Units/Ml Ml, Subc utaneously Insulin Human Lispro (Humalog) 100 Units/Ml Ml, Subcutaneously 2016-01-02 00:00:0 0 No Daily [facility] Albuterol Sulf (Albuterol Sulfate) 4 Mg Tab, 4 Mg Oral Albuterol Sulf (Albuterol Sulfate) 4 Mg Tab, 4 Mg Oral 2014-10-10 00:00:00 No 4 Twice A Day [facility] Albuterol Sulfate (Ventolin Hfa) 18 Gm Hfa.aer.ad, In h Inhalation Albuterol Sulfate (Ventolin Hfa) 18 Gm Hfa.aer.ad, Inh Inhalation 201 01-22-29 00:00:00 No Every 4 Hours [facility] Levofloxacin (Levaquin) 500 Mg Tablet, 500 Mg Oral Lev ofloxacin (Levaquin) 500 Mg Tablet, 500 Mg Oral 2014-10-06 00:00:00 No 500 D [facility] Estradiol 1 Mg Tab, 0.5 Mg Oral Estradiol 1 Mg Tab, 0.5 Mg Oral 2014-06-05 00:00:00 No .5 Daily [facility] Atorvastatin Calcium 10 Mg Tablet, 10 Mg Oral Atorvast atin Calcium 10 Mg Tablet, 10 Mg Oral 2014-05-04 00:00:00 No 10 Daily [facility] Glimepiride 4 Mg Tablet, 4 Mg Oral Glimepiride 4 Mg Tablet, 4 Mg Oral 2014-05-04 00:00:00 No 4 Daily [facility] Lamotrigine (Lamictal) 25 Mg Tab, 25 Mg Oral Lamotrigi ne (Lamictal) 25 Mg Tab, 25 Mg Oral 2014-05-04 00:00:00 No 25 Daily [facility] Pioglitazone Hcl (Actos) 30 Mg Tablet, 30 Mg Oral Piog litazone Hcl (Actos) 30 Mg Tablet, 30 Mg Oral 2014-05-04 00:00:00 No 30 [place] y [facility] Sertraline Hcl (Zoloft) 100 Mg Tablet, 100 Mg Oral Ser traline Hcl (Zoloft) 100 Mg Tablet, 100 Mg Oral 2014-05-04 00:00:00 No [address] [facility] Vital Signs Vital Name Observation Time Observation Value Comments Source Systolic blood pressure 2020-04-27 11:53:00 128 mm[Hg] [facility] Diastolic blood pressure 2020-04-27 11:53:00 91 mm[Hg] [facility] Heart rate 2020-04-27 11:53:00 113 /min [facility] Body temperature 2020-04-27 11:53:00 36.89 Nanda Gabriela is [facility] Respiratory rate 2020-04-27 11:53:00 16 /min Gabriela is [facility] Body height 2020-04-27 11:53:00 157.5 cm [facility] Body weight 2020-04-27 11:53:00 66.951 kg [facility] BMI 2020-04-27 11:53:00 27.00 kg/m2 [facility] Oxygen saturation in Arterial blood by Pulse oximetry 04-27 11:53:00 99 /min [facility] Procedures Procedure Date / Time Performed Performing Clinician [facility] e MAMMOGRAM BILAT SCREEN DIGITAL 2019-11-23 14:35[facility] OR MORE [facility]IE[facility] (TRAUMA - AP/LAT/B OBL) 2019-11-23 11:52:16 Cele [facility] ALANINE AMINOTRASFERASE/ASPARTATE AMINOTRANSFERASE (AL T/AST) 2019-10-21 11:11:00 [facility] CREATININE 2019-10-21 11:11:00 Jaleel Kiana Diego [facility] eah ELECTROLYTES 2019-10-21 11:11:00 GladysKiana Diego [facility] HEMOGLOBIN A1C 2019-10-21 11:11:00 [facility] XRAY SPINE THORACIC 2 VIEWS 2019-08-30 14:43:02 [facility] Computed [facility] of brain without radiopaque contrast 201 06-23-08 00:00:00 ABY URBAN [facility] DRAINAGE OF BACK SUBCU/FASCIA, OPEN APPROACH 2019-08-20 00:00:00 JEANNETTE OTERO [facility] Computed tomography of thoracic spine with contrast 00:00:00 CROW CARLOS [facility] Computed tomography of lumbar spine without contrast 2019-08 00:00:00 CROW CARLOS [facility] DIABETIC FOOT EXAM 2019-08-14 11:47:47 Ena Stevens [facility] OPHTHALMOLOGY RETINAL SCAN 2019-08-03 09:20:03 Shira Scanlon [facility] BMP POC 2019-07-27 12:35:00 [facility] URINE DRUG SCREEN 2019-07-27 12:23:00 Capo Shira [facility] alth CHLAM/GC DNA AMPLI 2019-07-27 12:23:00 Capo Shira [facility] ealth CBC/DIFF 2019-07-27 12:01:00 [facility] THYROID STIMULATING HORMONE (TSH) 2019-07-27 12:01:00 [facility] karyn [facility] LIPID PROFILE 2019-07-27 12:01:00 [facility] HIV AG/AB COMBO ROUTINE SCREENING 2019-07-27 12:01:00 [facility] LIVER PROFILE 2019-07-27 12:01:00 [facility] HEPATITIS PANEL 2019-07-27 12:01:00 [facility] Shira [facility] SYPHILIS SCREEN FOR INFECTION 2019-07-27 12:01:00 Capo Hector jennifer [facility] CBC 2019-07-27 12:01:00 [facility] Shira [facility] HEMOGLOBIN A1C 2019-07-27 12:01:00 [facility] POC BMP - IN LAB (STAT) 2019-07-27 12:01:00 Shira Scanlon [facility] X-ray of chest, two views 2019-06-17 00:00:00 BEVERLY MARTELL [facility] Plan of Care Planned Activity Planned Date Details Comments Source Future Scheduled Test 2020-11-23 00:00:00 Breast Cancer Scrn (Yearly) [code = Breast Cancer Scrn (Yearly)] [facility] Scheduled Test 2020-10-21 00:00:00 Hemoglobin A1c pancho surement (procedure) [code = 52493573] [facility] Scheduled Test 2020-08-14 00:00:00 DM Foot Exam (Year ly) [code = DM Foot Exam (Yearly)] [facility] Scheduled Test 2020-08-03 00:00:00 DM Retinal Exam (Y early) [code = DM Retinal Exam (Yearly)] [facility] Scheduled Test 2020-07-13 00:00:00 IMM Influenza Seas onal Jul to December (>/= 19 yrs) [code = IMM Influenza Seasonal Oct to December (>/= 19 yrs)] [facility] Scheduled Test 1993 00:00:00 Urine screening fo r protein (procedure) [code = 567638546] [facility] Encounters Start Date/Time End Date/Time Encounter Type Admission Type [facility] Care Department Encounter ID Source 2020 00:00:00 2020 00:00:00 Outpatient GLENNA BEE [facility] [id number] [facility] 2020-07-10 00:00:00 2020-07-10 00:00:00 Outpatient GLENNA BEE [facility] [id number] [facility] 2020-06-22 00:00:00 2020-06-22 00:00:00 Outpatient [facility] [id number] [facility] 2020-06-20 00:00:00 2020-06-20 00:00:00 Outpatient GLENNA BEE [facility] [id number] [facility] 2020-06-13 00:00:00 2020-06-13 00:00:00 Outpatient [facility] [id number] [facility] 2020-06-05 07:38:25 2020-06-05 15:26:27 Outpatient GLENNA BEE [facility] [id number] [facility] 2020-05-29 00:00:00 2020-05-29 00:00:00 Outpatient [facility] [id number] [facility] 2020-05-15 07:46:15 2020-05-15 16:55:04 Outpatient ELIJAH YUN [facility] [id number] [facility] 2020-05-08 07:32:52 2020-05-08 07:32:52 Outpatient [facility] [id number] [facility] 2020-04-27 11:53:27 2020-04-27 11:53:27 Outpatient [facility] [id number] [facility] 2020-04-24 07:16:47 2020-04-24 07:16:47 Outpatient [facility] [id number] [facility] 2020-04-20 07:31:57 2020-04-20 07:31:57 Outpatient [facility] [id number] [facility] 2020-04-13 00:00:00 2020-04-13 00:00:00 Outpatient [facility] [id number] [facility] 2020-04-04 07:37:01 2020-04-04 07:37:01 Outpatient [facility] [id number] [facility] 2020-03-27 00:00:00 2020-03-27 00:00:00 Outpatient [facility] [id number] [facility] 2020-03-22 11:54:50 2020-03-22 11:54:50 Outpatient [facility] [id number] [facility] 2020-03-21 00:00:00 2020-03-21 00:00:00 Outpatient [facility] [id number] [facility] 2020-03-16 00:00:00 2020-03-16 00:00:00 Outpatient [facility] [id number] [facility] 2020-03-14 09:49:41 2020-03-14 09:49:41 Outpatient [facility] [id number] [facility] 2020-02-29 07:32:58 2020-02-29 07:32:58 Outpatient [facility] [id number] [facility] 2020-02-28 07:31:35 2020-02-28 07:31:35 Outpatient [facility] [id number] [facility] 2020-02-16 00:00:00 2020-02-16 00:00:00 Outpatient [facility] [id number] [facility] 2020-02-15 13:24:30 2020-02-15 13:24:30 Outpatient [facility] [id number] [facility] 2020-02-11 00:00:00 2020-02-11 00:00:00 Outpatient [facility] [id number] [facility] 2020-02-09 07:35:10 2020-02-09 07:35:10 Outpatient [facility] [id number] [facility] 2020-02-03 07:28:39 2020-02-03 07:28:39 Outpatient [facility] [id number] [facility] 2020-02-02 09:56:59 2020-02-02 09:56:59 Outpatient [facility] [id number] [facility] 2020-01-11 13:05:00 2020-01-11 15:29:00 Departed Emergency Room 1 GAUTAM ISABEL [facility] [id number] [facility] 2019-12-31 10:09:00 2019-12-31 16:13:00 Departed Emergency Room 1 ROSARIO LEMON [facility] [id number] [facility] 2019-12-28 00:00:00 2019-12-28 00:00:00 Outpatient [facility] [id number] [facility] 2019-12-16 00:00:00 2019-12-16 00:00:00 Outpatient [facility] [id number] [facility] 2019-12-14 00:00:00 2019-12-14 00:00:00 Outpatient [facility] [id number] [facility] 2019-12-11 09:47:37 2019-12-11 09:47:37 Emergency [facility] [id number] [facility] 2019-12-07 15:18:05 2019-12-07 15:18:05 Outpatient [facility] [id number] [facility] 2019-11-30 12:39:58 2019-11-30 12:39:58 Outpatient [facility] [id number] [facility] 2019-11-24 00:00:00 2019-11-24 00:00:00 Outpatient [facility] [id number] [facility] 2019-11-23 13:37:58 2019-11-23 13:37:58 Outpatient [facility] [id number] [facility] 2019-11-23 11:41:15 2019-11-23 11:41:15 Outpatient [facility] [id number] [facility] 2019-11-18 13:30:14 2019-11-18 13:30:14 Outpatient [facility] [id number] [facility] 2019-11-18 00:00:00 2019-11-18 00:00:00 Outpatient [facility] [id number] [facility] 2019-11-18 00:00:00 2019-11-18 00:00:00 Outpatient [facility] [id number] [facility] 2019-11-15 17:56:00 2019-11-15 18:42:00 Departed Emergency Room [facility] [id number] [facility] 2019-11-10 11:41:51 2019-11-10 11:41:51 Outpatient [facility] [id number] [facility] 2019-10-25 00:00:00 2019-10-25 00:00:00 Outpatient [facility] [id number] [facility] 2019-10-21 11:08:32 2019-10-21 11:08:32 Outpatient [facility] [id number] [facility] 2019-10-21 10:21:40 2019-10-21 10:21:40 Outpatient [facility] [id number] [facility] 2019-10-21 00:00:00 2019-10-21 00:00:00 Outpatient [facility] [id number] [facility] 2019-10-19 00:00:00 2019-10-19 00:00:00 Outpatient [facility] [id number] [facility] 2019-10-10 08:50:00 2019-10-10 11:50:00 Departed Emergency Room 1 CHEIKH PIKE [facility] [id number] [facility] 2019-09-30 00:00:00 2019-09-30 00:00:00 Outpatient [facility] [id number] [facility] 2019-09-08 00:00:00 2019-09-08 00:00:00 Outpatient [facility] [id number] [facility] 2019-09-08 00:00:00 2019-09-08 00:00:00 Outpatient [facility] [id number] [facility] 2019-08-30 14:33:16 2019-08-30 14:33:16 Outpatient [facility] [id number] [facility] 2019-08-30 12:56:42 2019-08-30 12:56:42 Outpatient [facility] [id number] [facility] 2019-08-19 14:41:00 2019-08-22 10:54:00 Discharged Inpatient 1 JAZLYN ARZATE [facility] [id number] [facility] 2019-08-19 00:00:00 2019-08-19 00:00:00 Outpatient [facility] [id number] [facility] 2019-08-16 19:21:00 2019-08-17 03:00:00 Departed Emergency Room [facility] [id number] [facility] 2019-08-14 10:09:03 2019-08-14 10:09:03 Outpatient [facility] [id number] [facility] 2019-08-03 09:09:27 2019-08-03 09:09:27 Outpatient [facility] [id number] [facility] 2019-07-28 00:00:00 2019-07-28 00:00:00 Outpatient [facility] [id number] [facility] 2019-07-27 12:00:30 2019-07-27 12:00:30 Outpatient [facility] [id number] [facility] 2019-07-27 10:00:36 2019-07-27 10:00:36 Outpatient [facility] [id number] [facility] 2019-07-27 00:00:00 2019-07-27 00:00:00 Outpatient [facility] [id number] [facility] 2019-07-23 18:13:00 2019-07-23 19:44:00 Departed Emergency Room [facility] [id number] [facility] 2019-06-17 18:18:00 2019-06-17 23:49:00 [facility] [address] [facility] [id number] [facility] 2019-01-23 21:40:00 2019-01-24 00:45:00 Departed Emergency Room 1 CHEIKH PIKE [facility] [id number] [facility] 2018-09-19 09:56:00 2018-09-19 11:10:00 Departed Emergency Room [facility] [id number] [facility] 2018-09-10 20:41:00 2018-09-10 20:55:00 Departed Emergency Room [facility] [id number] [facility] 2018-09-06 08:16:00 2018-09-06 10:05:00 Departed Emergency Room [facility] [id number] [facility] 2018-03-17 13:10:00 2018-03-19 09:55:00 Discharged Inpatient 1 JUVENTINO DUBOSE [facility] [id number] [facility] 2018-01-17 19:55:00 2018-01-17 21:41:00 Departed Emergency Room ER SURYA DEAN [facility] [id number] [facility] 2018-01-15 17:59:00 2018-01-15 20:39:00 Departed Emergency Room ER SHAHID JACKSON [facility] [id number] [facility] 2017-12-28 12:15:00 2017-12-28 12:40:00 Departed Emergency Room [facility] [id number] [facility] 2017-12-04 13:19:00 2017-12-04 20:28:00 Departed Emergency Room [facility] [id number] [facility] 2017-03-31 17:22:00 2017-04-01 01:14:00 Departed Emergency Room [facility] [id number] [facility] 2017-02-20 12:53:00 2017-02-20 17:09:00 Departed Emergency Room [facility] [id number] [facility] Results Test Description Test Time Test Comments Results Result Comments Source CHEST SINGLE (PORTABLE) 2020-06-13 15:17:00 [place] [address] Patient Name: YOLETTE URIBE MR #: [id number] : 1975 Age/Sex: 44/F Req #: [id number] Adm Physician: Ordered by: CHEIKH PIKE MD Report #: [id number] Location: ER Room/Bed: Procedure: [id number] DX/CHEST SINGLE (PORTABLE) Exam Date: 06/13/20 Exam Time: 1430 REPORT STATUS: Signed TECHNIQUE: Frontal view of the chest. INDICATION: OFF-BALANCE 20200613 COMPARISON: 12/31/2019 DISCUSSION: Limited evaluation due to portable technique. Lines and hardware: None. Heart and mediastinum: Stable. Lungs and pleura: No focal airspace consolidation. No pleural effusion. No pneumothorax. Soft tissues and bones: No acute abnormality. IMPRESSION: Negative for acute intrathoracic process. Signed by: Merritt De La Cruz MD on 06/13/2020 3:18 PM Dictated By: MERRITT DE LA CRUZ MD 17 Transcribed By: JEMAL on 06/13/201517 COPY TO: CHEIKH PIKE MD TROPONIN-I 2020-02-21 22:28:00 Test Item TROPONIN-I (test code = TROPI) <0.015 ng/mL 0-0.045 N BASIC METABOLIC [id number] 20:54:00* Test Item Value Reference Range Interpretation Comments SODIUM (test code = NA) 131 mmol/L 136-145 L POTASSIUM (test code = K) 4.8 mmol/L 3.5-5.1 N CHLORIDE (test code = CL) 96.0 mmol/L 98-107 L CARBON DIOXIDE (test code = CO2) 28.0 mmol/L 21-32 N ANION GAP (test code = GAP) 11.8 10-20 N GLUCOSE (test code = GLU) 576 mg/dL 74-106 Re sults called to [id number] by [email or web address] 02/21/204Critical results verified and read back by Nurse? Y BLOOD UREA NITROGEN (test code = BUN) 10 mg/dL 7-18 N GLOMERULAR FILTRATION RATE (test code = GFR) > 60 mL/min >=60 Estimated GFR by using Modified MDRD formula.Chronic kidney disease is defined as either kidney damageor GFR <60 mL/min/1.73 m2 for >3 months. CREATININE (test code = CREAT) 0.80 mg/dL 0.55-1.02 N Note change in reference range due to change in reagent. BUN/CREATININE RATIO (test code = BUN/CREA) 12.5 10-20 N CALCIUM (test code = CA) 9.6 mg/dL 8.5-10.1 N HEPATIC FUNCTION [id number] 20:54:00* Test Item Value Reference Range Interpretation Comments TOTAL PROTEIN (test code = PROT) 7.5 gram/dL 6.4-8.2 N ALBUMIN (test code = ALB) 3.6 g/dL 3.4-5.0 N GLOBULIN (test code = GLOB) 3.9 gram/dL 2.7-4.2 N ALBUMIN/GLOBULIN RATIO (test code = A/G) 0.9 0.75-1.50 N BILIRUBIN TOTAL (test code = BILT) 0.20 mg/dL 0.0-1.0 N BILIRUBIN DIRECT (test code = BILD) 0.07 mg/dL 0.0-0.20 N SGOT/AST (test code = AST) 28 IUnit/L 15-37 N SGPT/ALT (test code = ALT) 31 IUnit/L 12-78 N ALKALINE PHOSPHATASE TOTAL (test code = ALKP) 171 IUnit/L 45-117 H Note change in reference range due to change in reagent. [id number] 20:54:00* Test Item Value Reference Range Interpretation Comments MAGNESIUM (test code = MAG) 1.9 mg/dL 1.8-2.4 N [id number] 20:54:00* Test Item Value Reference Range Interpretation Comments TROPONIN-I (test code = TROPI) <0.015 ng/mL 0-0.045 N - US ABDOMEN [id number] 20:24:00 Name: YOLETTE URIEB [facility] : 1975 Age/S: 44 / F [address] [facility] Unit #: [id number] Loc: [place] [address] Phys: Jose Luis Zapata MD Acct: [id number] Dis Date: Status: REG ER PHONE #: [phone] Exam Date: 02/21/20202016 FAX #: [phone] Reason: epgiastric pain EXAMS: CPT CODE: [id number] US ABDOMEN LTD [id number] EXAM: Ultrasound of the abdomen, limited; INFORMATION: Epigastric pain; FINDINGS: The liver is of normal size and shape and shows homogeneous echotexture without focal lesions; the gallbladder is of normal diameter and wall thickness; no evidence of gallstones; no dilatation of intra or extrahepatic bile ducts. Pancreatic head and body show no abnormalities; the right kidney is of normal size and shape. It measures 11.2 x 4.8 x 5.2 cm; Imaged portions of the abdominal aorta and IVC are unremarkable. IMPRESSION: Normal ultrasound of the right upper quadrant; Location code: [facility] at 2023 Reported and signed by: Jak Miller M.D. CC: Lamberto Shrestha III, MD; Jose Luis Zapata MD Technologist: [facility] Date/Time: 02/21/2020 (2023) [email or web address] Orig Print D/T: S: 02/21/2020 (2026) Probe: PAGE 1 Signed Report PROTHROMBIN [id number] 20:16:00* Test Item Value Reference Range Interpretation Comments PROTHROMBIN TIME PATIENT (test code = PTP) 9.8 seconds 9.0-14.0 N INTERNATIONAL NORMAL RATIO (test code = INR) 0.8 0.8-1.2 N The therapeutic range for oral anticoagulant therapy formost indications is an international normalized ratio (INR)of between 2.0 and 3.0. The recommended therapeutic INRrange for various clinical situations is listed below: Clinical Situation INR range Pulmonary e mbolism treatment (2.0-3.0)Venous thrombosis treatmentVenous thrombosis prophylaxis (high risk surgery)Prevention of systemic embolism from: Acute myocardial infarction Valvular heart disease Atrial fibrillation Mechanical prosthetic heart valves (2.5-3.5) IS PATIENT ON ANTICOAGULANTS? NTHROMBOPLASTIN TIME [id number] 20:16:00* Test Item Value Reference Range Interpretation Comments THROMBOPLASTIN TIME PARTIAL (test code = PTT) 29.8 seconds 23.0-37. 0 N IS PATIENT ON ANTICOAGULANTS? [id number] 20:16:00* Test Item Value Reference Range Interpretation Comments D-DIMER (test code = DDIMER) 231.00 ng/mLFEU 0-500 N Clinical Cut-off value for D-Dimer is 500 ng/mL FEU. Comment: The [employer] D-Dimer assay is intended for use asan aid in the diagnosis of venous thromboembolism (VTE)[deep vein thrombosis (DVT) or pulmonary embolism (PE)].The measurement of D-Dimer should not be used as an aid inthe diagnosis of VTE, in patient with: -Therapeutic dose anticoagulant therapy for >24 hours -Fibrinolytic therapy within previous 7 days -Trauma or surgery within previous 4 weeks -Disseminated malignancies -Aortic aneurysm -Sepsis, severe infections, pneumonia, severe skin infections -Liver cirrhosis - IS PATIENT ON ANTICOAGULANTS? NBASIC METABOLIC [id number] 20:13:00* Test Item Value Reference Range Interpretation Comments SODIUM (test code = NA) 131 mmol/L 136-145 L POTASSIUM (test code = K) 4.8 mmol/L 3.5-5.1 N CHLORIDE (test code = CL) 96.0 mmol/L 98-107 L CARBON DIOXIDE (test code = CO2) mmol/L 21-32 ANION GAP (test code = GAP) 10-20 GLUCOSE (test code = GLU) mg/dL 74-106 BLOOD UREA NITROGEN (test code = BUN) mg/dL 7-18 GLOMERULAR FILTRATION RATE (test code = GFR) mL/min >=60 CREATININE (test code = CREAT) mg/dL 0.55-1.02 BUN/CREATININE RATIO (test code = BUN/CREA) 10-20 CALCIUM (test code = CA) mg/dL 8.5-10.1 HEPATIC FUNCTION [id number] 20:13:00* Test Item Value Reference Range Interpretation Comments TOTAL PROTEIN (test code = PROT) gram/dL 6.4-8.2 ALBUMIN (test code = ALB) g/dL 3.4-5.0 GLOBULIN (test code = GLOB) gram/dL 2.7-4.2 ALBUMIN/GLOBULIN RATIO (test code = A/G) 0.75-1.50 BILIRUBIN TOTAL (test code = BILT) mg/dL 0.0-1.0 BILIRUBIN DIRECT (test code = BILD) mg/dL 0.0-0.20 SGOT/AST (test code = AST) IUnit/L 15-37 SGPT/ALT (test code = ALT) IUnit/L 12-78 ALKALINE PHOSPHATASE TOTAL (test code = ALKP) IUnit/L 45-117 [id number] 20:13:00* Test Item Value Reference Range Interpretation Comments MAGNESIUM (test code = MAG) mg/dL 1.8-2.4 [id number] 20:13:00* Test Item Value Reference Range Interpretation Comments TROPONIN-I (test code = TROPI) ng/mL 0-0.045 [id number] 20:13:00* Test Item Value Reference Range Interpretation Comments LIPASE (test code = LIP) 229 U/L 73.0-393.0 N CBC W/O [id number] 20:06:00* Test Item Value Reference Range Interpretation Comments WHITE BLOOD CELL (test code = WBC) 10.6 K/mm3 4.5-12.5 N RED BLOOD CELL (test code = RBC) 4.90 mill/mm3 3.7-5.2 N HEMOGLOBIN (test code = HGB) 14.2 gram/dL 11.5-15.5 N HEMATOCRIT (test code = HCT) 41.1 % 36.0-46.0 N MEAN CELL VOLUME (test code = MCV) 83.9 fL 80-98 N MEAN CELL HGB (test code = MCH) 29.0 picogram 27.0-33.0 N MEAN CELL HGB CONCETRATION (test code = MCHC) 34.5 gram/dL 33.0-36. 0 N RED CELL DISTRIBUTION WIDTH (test code = RDW) 12.1 % 11.6-16. 2 N PLATELET COUNT (test code = PLT) 249 K/mm3 150-450 N MEAN PLATELET VOLUME (test code = MPV) 11.1 fL 6.7-11.0 H - XR CHEST 1 [id number] 19:47:00 FAX: Lamberto Major III [place]: B St: REG FAX: Jose Luis Zapata MD Name: YOLETTE URIBE [facility] : 1975 Age/S: 44/F Gustabo Garcia Unit #: [id number] Loc: [place] [address] Phys: Jose Luis Zapata MD Acct: [id number] Dis Date: Status: REG ER PHONE #: [phone] Exam Date: 02/21/20201927 FAX #: [phone] Reason: CHEST PAIN EXAMS: CPT CODE: [id number] XR CHEST 1 V 15599 EXAM: Chest X-ray, 1 view; CLINICAL HISTORY: Chest pain; FINDINGS: The lungs are clear, no infiltrates, no edema; no effusions; no pneumothorax; normal cardiomediastinal silhouette. No change compared with a study from June 12, 2018. IMPRESSION: Normal chest x-ray. Location code: at 194 Reported and signed by: Jak Miller M.D. CC: Lamberto Shrestha III, MD; Jose Luis Zapata MD Technologist: LIDIA SILVA(R) Trnscrd Date/Time/By: 02/21/2020 (1946) : By: EdwigeGRW Orig Print D/T: S: 02/21/2020 (1949) PAGE 1 Signed Report Bedside Invgbhc7008-14-29 15:26:00* Test Item Value Reference Range Interpretation Comments Bedside Glucose (test code = 67117-2) 339 70-120 H Meter ID: [id number] [facility] 2020-01-11 14:28:00 [place] [address] Patient Name: YOLETTE URIBE MR #: [id number] : 1975 Age/Sex: 44/F Req #: [id number] Adm Physician: Ordered by: GAUTAM ISABEL MD Report #: [id number] Location: ER Room/Bed: Procedure: [id number] DX/ HAND 3+ VIEWS LEFT Exam Date: 01/11/20 Exam Time: 14 REPORT STATUS: Signed EXAMINA TION: HAND 3+ VIEWS LEFT INDICATION: Hand pain, cat scratch MEGHA RISON: None FINDINGS: No acute fracture or dislocation. Alignment appears anatomic. No substantial degenerative change. Mild soft tissue swelli ng along the dorsum of the hand. IMPRESSION: Mild dorsal hand soft tissu e swelling without underlying acute osseous injury. Signed by: Kin Otero MD on 01/11/2020 2:31 PM Dictated By: KIN OTERO MD 1431 Transcribed By: JEMAL on 01/11/20 1431 COPY TO: GAUTAM ISABEL MD Sodium Wiofh4910-18-96 14:09:00* Test Item Value Reference Range Interpretation Comments Sodium Level (test code = 2951-2) 134 136-145 L [facility] CampusPotassium Xzfpe4652-24-66 14:09:00* Test Item Value Reference Range Interpretation Comments Potassium Level (test code = 2823-3) 3.6 3.5-5.1 [facility] CampusChloride Rgche7655-21-47 14:09:00* Test Item Value Reference Range Interpretation Comments Chloride Level (test code = 2075-0) 97 98-107 L [facility] CampusCarbon Dioxide Azzak4461-21-30 14:09:00* Test Item Value Reference Range Interpretation Comments Carbon Dioxide Level (test code = 2028-9) 24 22-29 [facility] CampusAnion Jij3299-91-60 14:09:00* Test Item Value Reference Range Interpretation Comments Anion Gap (test code = 73119-7) 16.6 8-16 H [facility] CampusBlood Urea Obsdwcxi4640-45-29 14:09:00* Test Item Value Reference Range Interpretation Comments Blood Urea Nitrogen (test code = 3094-0) 11 7-26 [facility] CampusCreatinine2020-03-31 14:09:00* Test Item Value Reference Range Interpretation Comments Creatinine (test code = 2160-0) 0.85 0.57-1.11 [facility] CampusBUN/Creatinine Lvbyf1111-13-23 14:09:00* Test Item Value Reference Range Interpretation Comments BUN/Creatinine Ratio (test code = 3097-3) 13 6- [facility] CampusEstimat Glomerular Filtration Rate 2020-01-11 14:09:00* Test Item Value Reference Range Interpretation Comments Estimat Glomerular Filtration Rate (test code = 400971768) > 60 >60 Ranges were taken from the National Kidney Disease Education Program and the [facility] literature.Reference ranges:60 or greater: Iuqxwv32-14 ( for 3 consecutive months): Chronic kidney disease 15 or less: Kidney failureThe Hospitals of Providence Transmountain CampusGlucose Qeifu6331-19-59 14:09:00* Test Item Value Reference Range Interpretation Comments Glucose Level (test code = DWE2426) 526 74-118 HH Results repeated and called to CHANDAN GUTIERREZ at 1408 on 01/11/20 by MARIEL MELISSA . Read back and verified.[facility] CampusCalcium Level 2020-01-11 14:09:00* Test Item Value Reference Range Interpretation Comments Calcium Level (test code = 46321-5) 9.6 8.4-10.2 [facility] CampusTotal Avkntjuxh8159-04-01 14:09:00* Test Item Value Reference Range Interpretation Comments Total Bilirubin (test code = 1975-2) 0.3 0.2-1.2 [facility] CampusAspartate Amino Transf (AST/SGOT) 2020-01-11 14:09:00* Test Item Value Reference Range Interpretation Comments Aspartate Amino Transf (AST/SGOT) (test code = Aspartate Amino Transf (AST/SGOT)) 19 5-34 [facility] CampusAlanine Aminotransferase (ALT/SGPT) 2020-01-11 14:09:00* Test Item Value Reference Range Interpretation Comments Alanine Aminotransferase (ALT/SGPT) (test code = 1742-6) 20 0-55 [facility] CampusTotal Wsthetx8240-24-35 14:09:00* Test Item Value Reference Range Interpretation Comments Total Protein (test code = 2885-2) 7.1 6.5-8.1 [facility] CampusAlbumin2020-03-31 14:09:00* Test Item Value Reference Range Interpretation Comments Albumin (test code = 1751-7) 3.4 3.5-5.0 L [facility] CampusGlobulin2020-03-31 14:09:00* Test Item Value Reference Range Interpretation Comments Globulin (test code = 12949-0) 3.7 2.3-3.5 H [facility] CampusAlbumin/Globulin Fighs7850-11-58 14:09:00 * Test Item Value Reference Range Interpretation Comments Albumin/Globulin Ratio (test code = 1759-0) 0.9 0.8-2.0 [facility] CampusAlkaline Cqjkjgverwd2560-50-96 14:09:00* Test Item Value Reference Range Interpretation Comments Alkaline Phosphatase (test code = 6768-6) 160 40-150 H [facility] CampusWhite Blood Gdfgt3352-64-74 13:56:00* Test Item Value Reference Range Interpretation Comments White Blood Count (test code = 6690-2) 15.13 4.8-10.8 H [facility] CampusRed Blood Iljzp1690-72-05 13:56:00* Test Item Value Reference Range Interpretation Comments Red Blood Count (test code = 789-8) 5.05 3.6-5.1 [facility] CampusHemoglobin2020-03-31 13:56:00* Test Item Value Reference Range Interpretation Comments Hemoglobin (test code = 51720-1) 14.9 12.0-16.0 [facility] CampusHematocrit2020-03-31 13:56:00* Test Item Value Reference Range Interpretation Comments Hematocrit (test code = 4544-3) 42.7 34.2-44.1 [facility] CampusMean Corpuscular Rxqabc1835-20-74 13:56:00* Test Item Value Reference Range Interpretation Comments Mean Corpuscular Volume (test code = 787-2) 84.6 81-99 [facility] CampusMean Corpuscular Bpqyikjrcm7452-52-01 13:56:00* Test Item Value Reference Range Interpretation Comments Mean Corpuscular Hemoglobin (test code = 785-6) 29.5 28-32 [facility] CampusMean Corpuscular Hemoglobin Concent 2020-01-11 13:56:00* Test Item Value Reference Range Interpretation Comments Mean Corpuscular Hemoglobin Concent (test code = 786-4) 34.9 31-35 [facility] CampusRed Cell Distribution Ijjoz2675-48-25 13:56:00* Test Item Value Reference Range Interpretation Comments Red Cell Distribution Width (test code = 58302-2) 12.3 11.7 -14.4 [facility] CampusPlatelet Pinhm5932-86-53 13:56:00* Test Item Value Reference Range Interpretation Comments Platelet Count (test code = 777-3) 309 140-360 [facility] CampusNeutrophils (%) (Auto)2020-01-11 13:56:00 * Test Item Value Reference Range Interpretation Comments Neutrophils (%) (Auto) (test code = 33545-0) 76.5 38.7-80.0 [facility] CampusLymphocytes (%) (Auto)2020-01-11 13:56:00 * Test Item Value Reference Range Interpretation Comments Lymphocytes (%) (Auto) (test code = 736-9) 16.9 18.0-39.1 L [facility] CampusMonocytes (%) (Auto)2020-01-11 13:56:00* Test Item Value Reference Range Interpretation Comments Monocytes (%) (Auto) (test code = 5905-5) 5.5 4.4-11.3 [facility] CampusEosinophils (%) (Auto)2020-01-11 13:56:00 * Test Item Value Reference Range Interpretation Comments Eosinophils (%) (Auto) (test code = 713-8) 0.3 0.0-6.0 [facility] CampusBasophils (%) (Auto)2020-01-11 13:56:00* Test Item Value Reference Range Interpretation Comments Basophils (%) (Auto) (test code = 706-2) 0.3 0.0-1.0 [facility] CampusIM GRANULOCYTES %2020-01-11 13:56:00* Test Item Value Reference Range Interpretation Comments IM GRANULOCYTES % (test code = IM GRANULOCYTES %) 0.5 0.0- 1.0 [facility] CampusNeutrophils # (Auto)2020-01-11 13:56:00* Test Item Value Reference Range Interpretation Comments Neutrophils # (Auto) (test code = 751-8) 11.6 2.1-6.9 H [facility] CampusLymphocytes # (Auto)2020-01-11 13:56:00* Test Item Value Reference Range Interpretation Comments Lymphocytes # (Auto) (test code = 83904-6) 2.6 1.0-3.2 [facility] CampusMonocytes # (Auto)2020-01-11 13:56:00* Test Item Value Reference Range Interpretation Comments Monocytes # (Auto) (test code = 742-7) 0.8 0.2-0.8 [facility] CampusEosinophils # (Auto)2020-01-11 13:56:00* Test Item Value Reference Range Interpretation Comments Eosinophils # (Auto) (test code = 711-2) 0.0 0.0-0.4 [facility] CampusBasophils # (Auto)2020-01-11 13:56:00* Test Item Value Reference Range Interpretation Comments Basophils # (Auto) (test code = 704-7) 0.1 0.0-0.1 [facility] CampusAbsolute Immature Granulocyte (auto 2020-01-11 13:56:00* Test Item Value Reference Range Interpretation Comments Absolute Immature Granulocyte (auto (chiquita t code = Absolute Immature Granulocyte (auto) 0.07 0-0.1 [facility] CampusCoronavirus (PCR)2020-01-04 06:12:00* Test Item Value Reference Range Interpretation Comments Coronavirus (PCR) (test code = Coronavirus (PCR)) NOT DETECTED NOTD ETECTED CORONAVIRUS QLJP-MCD-2-RT-PCR (RESPIRATORY)This test has been validated but FDA' s independent review of the validation is pending. This test is performed as a l aboratory developed test; independent review of the validation under FDA's Emerg ency Use Authorization (EUA) authority will be performed according to current [facility] requirements.We will continue to follow federal and state requirements fo r both notification of results and confirmatory testing that is required by [facility] agency.This test was developed and its performance characteristics determine d by [employer]. It has not been cleared or approved by the U.S. Food and Drug Administration. Results should be used in conjunction with clinical finding s, and should not form the sole basis for a diagnosis or treatment decision.Spec imen sent to [facility] and performed at [facility], [address] [place] [address]. [address]BBSThe Hospitals of [facility] CampusChlamydia pneumoniae DNA (PCR)2020-01-01 05:49:00* Test Item Value Reference Range Interpretation Comments Chlamydia pneumoniae DNA (PCR) (test code = Chlamydia pneumoniae DNA (PCR)) NOT DETECTED NOT DETECT Test performed at [address] [address]RESULTS HAVE BEEN CALLED TO THE PHYSICIANThe Hospitals of Providence [facility] CampusInfluenza Type A (RT-PCR)2020-01-01 05:49:00* Test Item Value Reference Range Interpretation Comments Influenza Type A (RT-PCR) (test code = 803828011) NOT DETECTED NOT DETECT [facility] CampusMycoplasma pneumoniae (PCR)2020-01-01 05:49:00* Test Item Value Reference Range Interpretation Comments Mycoplasma pneumoniae (PCR) (test code = Mycoplasma pn eumoniae (PCR)) NOT DETECTED NOT DETECT [facility] CampusInfluenza Type B (RT-PCR)2020-01-01 05:49:00* Test Item Value Reference Range Interpretation Comments Influenza Type B (RT-PCR) (test code = 907671033) NOT DETECTED NOT DETECT [facility] CampusRespiratory Syncytial Virus (PCR) 2020-01-01 05:49:00* Test Item Value Reference Range Interpretation Comments Respiratory Syncytial Virus (PCR) (test code = 842872052) NO T DETECTED NOT DETECT [facility] CampusBordetella pertussis DNA (PCR)2020-01-01 05:49:00* Test Item Value Reference Range Interpretation Comments Bordetella pertussis DNA (PCR) (test code = 885772081) NOT DETEC ROXANE NOT DETECT [facility] CampusParainfluenza Type 1 (PCR)2020-01-01 05:49:00* Test Item Value Reference Range Interpretation Comments Parainfluenza Type 1 (PCR) (test code = 740136154) NOT DETECTED NOT DETECT [facility] CampusParainfluenza Type 2 (PCR)2020-01-01 05:49:00* Test Item Value Reference Range Interpretation Comments Parainfluenza Type 2 (PCR) (test code = 728661447) NOT DETECTED NOT DETECT [facility] CampusParainfluenza Type 3 (PCR)2020-01-01 05:49:00* Test Item Value Reference Range Interpretation Comments Parainfluenza Type 3 (PCR) (test code = 222960794) NOT DETECTED NOT DETECT [facility] CampusParainfluenza Type 4 (PCR)2020-01-01 05:49:00* Test Item Value Reference Range Interpretation Comments Parainfluenza Type 4 (PCR) (test code = Parainfluenza Type 4 (PCR)) NOT DETECTED NOT DETECT [facility] CampusRhinovirus (PCR)2020-01-01 05:49:00* Test Item Value Reference Range Interpretation Comments Rhinovirus (PCR) (test code = 639878107) NOT DETECTED NOT DETECT [facility] CenterHuman Metapneumovirus (PCR)2020-01-01 05:49:00* Test Item Value Reference Range Interpretation Comments Human Metapneumovirus (PCR) (test code = 980441691) NOT DETECTED NO T DETECT [facility] CampusAdenovirus (PCR)2020-01-01 05:49:00* Test Item Value Reference Range Interpretation Comments Adenovirus (PCR) (test code = 723303490) NOT DETECTED NOT DETECT [facility] CampusCoronavirus Type HKU1 (PCR)2020-01-01 05:49:00* Test Item Value Reference Range Interpretation Comments Coronavirus Type HKU1 (PCR) (test code = Coronavirus T ype HKU1 (PCR)) NOT DETECTED NOT DETECT [facility] CampusCoronavirus Type NL63 (PCR)2020-01-01 05:49:00* Test Item Value Reference Range Interpretation Comments Coronavirus Type NL63 (PCR) (test code = Coronavirus T ype NL63 (PCR)) NOT DETECTED NOT DETECT [facility] CampusCoronavirus Type OC43 (PCR)2020-01-01 05:49:00* Test Item Value Reference Range Interpretation Comments Coronavirus Type OC43 (PCR) (test code = Coronavirus T ype OC43 (PCR)) NOT DETECTED NOT DETECT [facility] CampusCoronavirus Type 229E (PCR)2020-01-01 05:49:00* Test Item Value Reference Range Interpretation Comments Coronavirus Type 229E (PCR) (test code = Coronavirus T ype 229E (PCR)) NOT DETECTED NOT DETECT Test performed at [facility] [place] [address]RESULTS HAVE BEEN CALLED TO THE PHYSICIANThe Hospitals of [facility] CampusDifferential Total Cells Coihmaa6628-67-38 21:02:00* Test Item Value Reference Range Interpretation Comments Differential Total Cells Counted (test code = Differen tial Total Cells Counted) 100 [facility] CampusNeutrophils % (Manual)2019-12-31 21:02:00 * Test Item Value Reference Range Interpretation Comments Neutrophils % (Manual) (test code = 31789-3) 61 40-74 [facility] CampusBand Neutrophils %2019-12-31 21:02:00* Test Item Value Reference Range Interpretation Comments Band Neutrophils % (test code = 764-1) 2 [facility] CampusLymphocytes % (Manual)2019-12-31 21:02:00 * Test Item Value Reference Range Interpretation Comments Lymphocytes % (Manual) (test code = 737-7) 22 19-48 [facility] CampusMonocytes % (Manual)2019-12-31 21:02:00* Test Item Value Reference Range Interpretation Comments Monocytes % (Manual) (test code = 744-3) 6 3.4-9.0 [facility] CampusEosinophils % (Manual)2019-12-31 21:02:00 * Test Item Value Reference Range Interpretation Comments Eosinophils % (Manual) (test code = 714-6) 1 0-7 [facility] CampusMetamyelocytes %2019-12-31 21:02:00* Test Item Value Reference Range Interpretation Comments Metamyelocytes % (test code = 740-1) 1 0-0 H [facility] CampusMyelocytes %2019-12-31 21:02:00* Test Item Value Reference Range Interpretation Comments Myelocytes % (test code = 749-2) 1 0-0 H [facility] CampusReactive Vekxruqnddk2408-25-33 21:02:00* Test Item Value Reference Range Interpretation Comments Reactive Lymphocytes (test code = 07812-9) 6 [facility] CampusPlatelet Vxuqrirf5137-47-29 21:02:00* Test Item Value Reference Range Interpretation Comments Platelet Estimate (test code = 03780-5) ADEQUATE [facility] CampusPlatelet Morphology [place]9700-84-00 21:02:00* Test Item Value Reference Range Interpretation Comments Platelet Morphology Comment (test code = 94801-1) NORMAL [facility] CampusRed Cell Morphology Nrlpfun8583-21-21 21:02:00* Test Item Value Reference Range Interpretation Comments Red Cell Morphology Comment (test code = 6742-1) NORMAL [facility] CampusCreatine Khauty7504-39-22 15:18:00* Test Item Value Reference Range Interpretation Comments Creatine Kinase (test code = 2157-6) 24 29-168 L [facility] CampusCreatine Kinase OE7252-60-50 15:18:00* Test Item Value Reference Range Interpretation Comments Creatine Kinase MB (test code = 76295-1) 0.30 0-5.0 [facility] CampusTroponin Y5732-70-66 15:18:00* Test Item Value Reference Range Interpretation Comments Troponin I (test code = ZQX2788) 0.001 0-0.300 [facility] CampusGroup A Streptococcus Fyjfvj7616-60-55 14:57:00* Test Item Value Reference Range Interpretation Comments Group A Streptococcus Screen (test code = 26369-3) NEGATIVE NEG ATIVE [facility] CampusCHEST SINGLE (PORTABLE)2019-12-31 13:13:00 [facility] [address] [place] [address] Patient Name: YOLETTE URIBE MR #: [id number] : 1975 Age/Sex: 44/F Req #: [id number] Adm Physician: Ordered by: ROSARIO MORENO RETURN TO SERVICE INSPECTOR Report #: [id number] Location: ER Room/Bed: Procedure: [id number] DX /CHEST SINGLE (PORTABLE) Exam Date: 12/31/19 Exam Ti me: 1241 REPORT STATUS: Signed E XAMINATION: CHEST SINGLE (PORTABLE) INDICATION: Chest pain COMPAR CORRIE: Chest radiograph 06/17/2019 FINDINGS: LINES/TUBES:None L UNGS:The lungs are well-inflated. No focal consolidation or pulmonary edema. PLEURA:No pleural effusion or pneumothorax. MEDIASTINUM:The cardiomediast inal silhouette appears normal in size and shape. BONES/SOFT TISSUES:No acu te osseous injury. ABDOMEN:No free air under the diaphragm. IMPRESS ION: No focal pneumonia or pulmonary edema. Signed by: Kin Otero MD on 12/31/2019 1:13 PM Dictated By: KIN OTERO MD 1313 Transcribed By: JEMAL on 12/31/19 1313 C OPY TO: ROSARIO MORENO RETURN TO SERVICE INSPECTOR Influenza Virus Types A,B Evrxoaf0109-98-65 11:26:00* Test Item Value Reference Range Interpretation Comments Influenza Virus Types A,B Antigen (test code = 22810-4) NEGATIVE NEGATIVE [facility] CenterXRAY KNEE 4 OR MORE VIEWS (TRAUMA - AP/LAT/B OBL)2019-11-23 14:43:15IMPRESSION:Mild tricompartmental degenerative arthrosis. No osseous erosion. Signed By: Yazan Terrazas MD, 11/23/2019 2:43 PM Interface, Rad/Mammog In - 11/23/2019 2:48 PM CSTExam: Radiographs of the left knee History: PainComparison: None.DISCUSSION: No fracture or dislocation. Mild tricompartmentaldegenerative arthrosis. No osseous erosion. No abnormal soft tissuecalcification or soft tissue defect. IMPRESSIONIMPRESSION:Mild tricompartmental degenerative arthrosis. No osseous erosion.Signed By: Yazan Terrazas MD, 11/23/2019 2:43 PMHargallup indian medical center HealthMAMMOGRAM BILAT SCREEN VIQTVYE6887-14-35 14:41:00IMPRESSION: BENIGNThere is no mammographic evidence of malignancy. A 1 year screening mammogram is recommended. I have reviewed the study and agree with the findings in the report. This document has been electronically signed. Katie Sanders M.D.paresh connor/penrad:11/23/2019 14:41:39 Industrial Technology Teacher: Bethany Boles, [facility] Centerletter sent: Benign Exam Mammogram BI-RADS: 2 Benign G0202 z12.31Interface, Rad/Mammog In - 11/23/2019 3:10 PM CLAIM PROFESSIONAL#[id number] - MAMMOGRAM BILAT SCREEN DIGITALBILATERAL DIGITAL SCREENING MAMMOGRAM WITH CAD: 11/23/2019CLINICAL: Screening. No prior exams were available for [...] other findings are seen in either breast. IMPRESSIONIMPRESSION: BENIGNThere is no mammographic evidence of malignancy. A 1 year screening mammogram is recommended. I have reviewed the study and agree with the findings in the report.This document has been electronically signed.paresh Negrete M.D./masood:11/23/2019 14:41:39 Industrial Technology Teacher: Bethany Boles [facility] Centerletter sent: Benign Exam Mammogram BI-RADS: 2 Benign G0202 z12.31[facility] LEFT THREE RRTKM4547-56-76 10:47:00 [place] [address] Patient Name: YOLETTE URIBE MR #: [id number] : 1975 Age/Sex: 44/F Req #: [id number] Adm Physician: Ordered by: CHEIKH PIKE MD Report #: [id number] Location: ER Room/Bed: Procedure: [id number] DX/KNEE LEFT THREE VIEWS Exam Date: 10/10/19 Exam Time: 1005 REPORT STATUS: Signed Exam: Left knee 3 views History: Knee pain Comparison: None. Findings: No fracture or malalignment. Joint spaces preserved. No abnormal soft tissue calcification or soft tissue defect. Impression: No acute osseous a bnormality Signed by: Dr. Bryan Nicole M.D. on 10/10/2019 10:48 AM Dictated By: BRYAN NICOLE MD 47 Transcribed By: JEMAL on 10/10/191047 COPY TO: CHEIKH PIKE MD FOOT RIGHT EQCVOCPP9311-14-26 10:43:00 [place] [id number] [place] [address] Patient Name: YOLETTE URIBE MR #: [id number] : 1975 Age/Sex: 44/F Req #: [id number] Adm Physician: Ordered by: CHEIKH PIKE MD Report #: [id number] Location: ER Room/Bed: Procedure: [id number] DX/FOOT RIGHT COMPLETE Exam Date: 10/10/19 Exam Time: 1005 REPORT STATUS: Signed Exam: R ight knee, tibia-fibula, ankle, and foot History: Fall Comparison: No ne. Findings: No acute fracture or malalignment. Remote trauma to the ankle . No abnormal soft tissue calcification or soft tissue defect. Impressi on: No acute osseous abnormality Signed by: Aruna Ramirez on 10/10/2019 10:47 AM Dictated By: BRYAN NICOLE MD 46 Transcribed By: JEMAL on 1046 COPY TO: CHEIKH PIKE MD ANKLE 3 + VIEWS RIGHT 2019-10-10 10:43:00 [id number] [place], [place] [address] Patient Name: YOLETTE URIBE MR #: [id number] : 1975 Age/Sex: 44/F Req #: [id number] Adm Physician: Ordered by: CHEIKH PIKE MD Report #: [id number] Location: ER Room/Bed: Procedure: [id number] DX/ANKLE 3 + VIEWS RIGHT Exam Date: 10/10/19 Exam Time: 1005 REPORT STATUS: Signed Exam: Right knee, tibia-fibula, ankle, and foot History: Fall Comparison: None. Findings: No acute fracture or malalignment. Remote trauma to the ank le. No abnormal soft tissue calcification or soft tissue defect. Impres vin: No acute osseous abnormality Signed by: Salazar Ramirez on 10/10/2019 10:47 AM Dictated By: BRYAN NICOLE MD Electronical ly Signed By: BRYAN NICOLE MD on 10/10/19 1047 Transcribed By: JEMAL on 1 7 COPY TO: CHEIKH PIKE MD LOWER LEG [id number] 10:43:00 [address] [address] Patient Name: YOLETTE URIBE MR #: [id number] : 1975 Age/Sex: 44/F Req #: [id number] Adm Physician: Ordered by: CHEIKH PIKE MD Report #: [id number] Location: ER Room/Bed: Procedure: [id number] DX/LOWER LEG RIGHT Exam Date: 10/10/19 Exam Time: 1005 REPORT STATUS: Signed Exam: Right knee, tibia-fibula, ankle, and foot History: Fall Comparison: None. Findings: No acute fracture or malalignment. Remote trauma to the ankle. No abnormal soft tissue calcification or soft tissue defect. Impression: No acute osseous abnormality Signed by: Dr. Bryan Nicole M.D. on 10/10/2019 10:47 AM Dictated By: BRYAN NICOLE MD Electronically Sig nicki By: BRYAN NICOLE MD on 10/10/19 1047 Transcribed By: JEMAL on 9 1047 COPY TO: CHEIKH PIKE MD KNEE RIGHT THREE VIEWS 2019-10-10 10:43:00 [address] [address] Patient Name: YOLETTE URIBE MR #: [id number] : 1975 Age/Sex: 44/F Req #: [id number] Adm Physician: Ordered by: CHEIKH PIKE MD Report #: [id number] Location: ER Room/Bed: Procedure: [id number] DX/KNEE RIGHT THREE VIEWS Exam Date: 10/10/19 Exam Time: 100 5 REPORT STATUS: Signed Exam: Right knee, tibia-fibula, ankle, and foot History: Fall Comparison: None. Findings: No acute fracture or malalignment. Remote trauma to the an kle. No abnormal soft tissue calcification or soft tissue defect. Impre ssion: No acute osseous abnormality Signed by: Dr. Bryan Nicole M.D. on 10/10/2019 10:47 AM Dictated By: BRYAN NICOLE MD Electronica lly Signed By: BRYAN NICOLE MD on 10/10/191046 Transcribed By: JEMAL on 10/10/191046 COPY TO: CHEIKH PIKE MD XRAY SPINE THORACIC 2 KATYQ9391-12-15 14:46:32IMPRESSION: 1. Please note that thoracic spine radiography is not a sensitive norspecific modality to assess for spine osteomyelitis/discitis.2. Multilevel degenerative changes of the thoracic spine. Dictated By: Sanjay Velasquez MD, 08/30/2019 2:45 PM I have reviewed the study and agree with the findings in this report. Signed By: Yazan Terrazas MD, 08/30/2019 2:46 PM Interface, Rad/Mammog In - 08/30/2019 2:51 PM CSTEXAM: XRAY SPINE THORACIC 2 VIEWS - 2 VIEW(S)HISTORY: overlying cellulitis over T10-11 spine, uncontrolled diabetesCOMPARISON: NoneDISCUSSION:Mild S shaped curvature of the thoracic spine.No displaced fracture or compression deformity.Multilevel disc space narrowing.Visualized lungs, pleura, and cardiomediastinal silhouette appearunremarkable.IMPRESSIONIMPRESSION:1. Please note that thoracic spine radiography is not a sensitive norspecific modality to assess for spine osteomyelitis/discitis.2. Multilevel degenerative changes of the thoracic spine.Dictated By: Sanjay Velasquez MD, 08/30/2019 2:45 PMI have reviewed the study and agree with the findings in this report.Signed By: Yazan Terrazas MD, 08/30/2019 2:46 PMHarris VogeqcTMBUKM4637-17-95 15:28:00* Test Item Value Reference Range Interpretation Comments GLUBED (test code = GLUBED) 286 mg/dL 74-106 H Performed by certified shaving machine operator at [facility] [id number] 15:28:00* Test Item Value Reference Range Interpretation Comments GLUBED (test code = GLUBED) > 500 mg/dL 74-106 HH Per[facility] certified shaving machine [facility] Notified~ CBC W/O [id number] 14:40:00* Test Item Value Reference Range Interpretation Comments WHITE BLOOD CELL (test code = WBC) 7.2 K/mm3 4.5-12.5 N RED BLOOD CELL (test code = RBC) 4.86 mill/mm3 3.7-5.2 N HEMOGLOBIN (test code = HGB) 14.2 gram/dL 11.5-15.5 N HEMATOCRIT (test code = HCT) 43.5 % 36.0-46.0 N MEAN CELL VOLUME (test code = MCV) 89.5 fL 80-98 N MEAN CELL HGB (test code = MCH) 29.2 picogram 27.0-33.0 N MEAN CELL HGB CONCETRATION (test code = MCHC) 32.6 gram/dL 33.0-36. 0 L RED CELL DISTRIBUTION WIDTH (test code = RDW) 13.1 % 11.6-16. 2 N PLATELET COUNT (test code = PLT) 339 K/mm3 150-450 N MEAN PLATELET VOLUME (test code = MPV) 11.7 fL 6.7-11.0 H CBC W/O [id number] 14:37:00* Test Item Value Reference Range Interpretation Comments WHITE BLOOD CELL (test code = WBC) K/mm3 4.5-12.5 RED BLOOD CELL (test code = RBC) mill/mm3 3.7-5.2 HEMOGLOBIN (test code = HGB) 14.2 gram/dL 11.5-15.5 N HEMATOCRIT (test code = HCT) 43.5 % 36.0-46.0 N MEAN CELL VOLUME (test code = MCV) fL 80-98 MEAN CELL HGB (test code = MCH) picogram 27.0-33.0 MEAN CELL HGB CONCETRATION (test code = MCHC) gram/dL 33.0-36. 0 RED CELL DISTRIBUTION WIDTH (test code = RDW) % 11.6-16. 2 PLATELET COUNT (test code = PLT) K/mm3 150-450 MEAN PLATELET VOLUME (test code = MPV) fL 6.7-11.0 - CT ABD PELVIS W/[id number] 12:34:00 Name: YOLETTE URIBE [facility] : 1975 Age/S: 44 / F [place] [facility] Unit #: [id number] Loc: [place] [address] Phys: Farshad Tran MD Acct: [id number] Dis Date: Status: REG ER PHONE #: [phone] Exam Date: 08/29/2019 1203 FAX #: [phone] Reason: lower abd pain EXAMS: CPT CODE: [id number] CT ABD PELVIS W/CONT 30899 REASON FOR EXAM: lower abd pain EXAM ORDER DATE: 08/29/2019 10:51 AM Ordering M.Sil: Farshad Tran MD PROCEDURE: - CT ABD PELVIS W/CONT contrast-enhanced axial CT images were acquired through the abdomen/pelvis at 5 mm intervals. Sagittal and coronal reformatted images were generated. Automated exposure control was utilized for this reduction. Phases of contrast: venous and delayed COMPARISON: CT abdomen and pelvis October 08, 2014 FINDINGS: Visualized thorax: Normal Hepatobiliary system: Incidentally noted a Marissa's lobe is present (normal anatomic variant of the liver). Otherwise normal Pancreas: Normal Spleen: Normal Adrenal glands: Normal Genitourinary system: Prior hysterectomy. Otherwise normal. Specifically no abnormalities of the urinary bladder and Gastrointestinal tract and appendix: Normal. Specifically no abnormalities of the rectum or sigmoid colon. Abdominal vascular structures: Normal Peritoneum and retroperitoneum: No free fluid or free air. No omental or mesenteric masses. No abnormal lymph nodes. Musculoskeletal structures and abdominal wall: Normal IMPRESSIO N: No acute intra-abdominal findings THE patient's lower abdominal pain. Specifically the distal colon and the bladder are within normal limits PAGE 1 Signed Report (CO NTINUED) Name: YOLETTE URIBE [facility] : 1975 Age/S: 44 / F [address] [facility]: [id number] Loc: [place] [address] Phys: Farshad Saldana MD Acct: [id number] Dis Date: Status: REG ER P MAGDA #: [phone] Exam Date: 08/29/2019 1203 FAX #: [phone] Reason: lower abd pain EX AMS: CPT CODE: [id number] CT A BD PELVIS W/CONT 83525 <Continued> Location: [facility] at 1234 Reported and signed by: Heriberto John MD CC: Farshad Tran MD; Lamberto Shrestha III, MD Technologist:Liesth Manzanares RT(R),CT CTDI: DLP: Trnscb Date/Time: 08/29/2019 (1234) t.SDR.RR31 Orig Print D/T: S: 08/29/2019 (8354) PAGE 2 Signed Report URINALYSIS [id number] 11:44:00* Test Item Value Reference Range Interpretation Comments UA COLOR (test code = COLU) COLORLESS YELLOW A UA APPEARANCE (test code = APPU) CLEAR CLEAR UA GLUCOSE DIPSTICK (test code = DGLUU) >1000 (4+) mg/dL NEGATIVE UA BILIRUBIN DIPSTICK (test code = BILU) NEGATIVE mg/dL NEGATIVE UA KETONE DIPSTICK (test code = KETU) NEGATIVE mg/dL NEGATIVE UA SPECIFIC GRAVITY (test code = SGU) 1.040 1.001-1.035 UA BLOOD DIPSTICK (test code = GARRETT) Negative mg/dL NEGATIVE UA PH DIPSTICK (test code = VISHAL) 5.5 5.0-8.0 UA PROTEIN DIPSTICK (test code = PROU) NEGATIVE mg/dL NEGATIVE UA UROBILINIOGEN DIPSTICK (test code = URO) Normal mg/dL NEGATIVE UA NITRITE DIPSTICK (test code = HERMILO) NEGATIVE NEGATIVE UA LEUKOCYTE ESTERASE W REFLEX (test code = LEUUR) NEGATIVE [place]/uL NEGATIVE UA WBC (test code = WBCU) 0-5 per HPF 0-5 UA RBC (test code = RBCU) 0-2 #/HPF 0-5 UA EPITHELIAL CELLS (test code = EPIU) FEW per HPF FEW UA BACTERIA (test code = BACU) NONE SEEN per HPF NONE UA MUCUS (test code = MUCU) FEW #/LPF FEW Urine Source? Clean CatchURINALYSIS [id number] 11:39:00* Test Item Value Reference Range Interpretation Comments UA COLOR (test code = COLU) COLORLESS YELLOW A UA APPEARANCE (test code = APPU) CLEAR CLEAR UA GLUCOSE DIPSTICK (test code = DGLUU) >1000 (4+) mg/dL NEGATIVE UA BILIRUBIN DIPSTICK (test code = BILU) NEGATIVE mg/dL NEGATIVE UA KETONE DIPSTICK (test code = KETU) NEGATIVE mg/dL NEGATIVE UA SPECIFIC GRAVITY (test code = SGU) 1.040 1.001-1.035 UA BLOOD DIPSTICK (test code = GARRETT) Negative mg/dL NEGATIVE UA PH DIPSTICK (test code = VISHAL) 5.5 5.0-8.0 UA PROTEIN DIPSTICK (test code = PROU) NEGATIVE mg/dL NEGATIVE UA UROBILINIOGEN DIPSTICK (test code = URO) Normal mg/dL NEGATIVE UA NITRITE DIPSTICK (test code = HERMILO) NEGATIVE NEGATIVE UA LEUKOCYTE ESTERASE W REFLEX (test code = LEUUR) NEGATIVE [place]/uL NEGATIVE UA WBC (test code = WBCU) 0-5 per HPF 0-5 UA RBC (test code = RBCU) 0-2 #/HPF 0-5 UA EPITHELIAL CELLS (test code = EPIU) FEW per HPF FEW UA BACTERIA (test code = BACU) per HPF NONE UA MUCUS (test code = MUCU) FEW #/LPF FEW Urine Source? Clean CatchBASIC METABOLIC [id number] 11:38:00* Test Item Value Reference Range Interpretation Comments SODIUM (test code = NA) 131 mmol/L 136-145 L POTASSIUM (test code = K) 4.2 mmol/L 3.5-5.1 N CHLORIDE (test code = CL) 96.0 mmol/L 98-107 L CARBON DIOXIDE (test code = CO2) 24.0 mmol/L 21-32 N ANION GAP (test code = GAP) 15.2 10-20 N GLUCOSE (test code = GLU) 541 mg/dL 74-106 Re sults called to [id number] by GWEN 08/29/19 1138Critical results verified and read back by Nurse? Y BLOOD UREA NITROGEN (test code = BUN) 9 mg/dL 7-18 N GLOMERULAR FILTRATION RATE (test code = GFR) > 60 mL/min >=60 Estimated GFR by using Modified MDRD formula.Chronic kidney disease is defined as either kidney damageor GFR <60 mL/min/1.73 m2 for >3 months. CREATININE (test code = CREAT) 0.90 mg/dL 0.55-1.02 N Note change in reference range due to change in reagent. BUN/CREATININE RATIO (test code = BUN/CREA) 9.5 10-20 L CALCIUM (test code = CA) 9.3 mg/dL 8.5-10.1 N HEPATIC FUNCTION [id number] 11:38:00* Test Item Value Reference Range Interpretation Comments TOTAL PROTEIN (test code = PROT) 7.5 gram/dL 6.4-8.2 N ALBUMIN (test code = ALB) 3.5 g/dL 3.4-5.0 N GLOBULIN (test code = GLOB) 4.0 gram/dL 2.7-4.2 N ALBUMIN/GLOBULIN RATIO (test code = A/G) 0.9 0.75-1.50 N BILIRUBIN TOTAL (test code = BILT) 0.20 mg/dL 0.0-1.0 N BILIRUBIN DIRECT (test code = BILD) 0.06 mg/dL 0.0-0.20 N SGOT/AST (test code = AST) 10 IUnit/L 15-37 L SGPT/ALT (test code = ALT) 19 IUnit/L 12-78 N ALKALINE PHOSPHATASE TOTAL (test code = ALKP) 134 IUnit/L 45-117 H Note change in reference range due to change in reagent. [id number] 11:38:00* Test Item Value Reference Range Interpretation Comments LIPASE (test code = LIP) 131 U/L 73.0-393.0 N BASIC METABOLIC [id number] 11:24:00* Test Item Value Reference Range Interpretation Comments SODIUM (test code = NA) 131 mmol/L 136-145 L POTASSIUM (test code = K) 4.2 mmol/L 3.5-5.1 N CHLORIDE (test code = CL) 96.0 mmol/L 98-107 L CARBON DIOXIDE (test code = CO2) mmol/L 21-32 ANION GAP (test code = GAP) 10-20 GLUCOSE (test code = GLU) mg/dL 74-106 BLOOD UREA NITROGEN (test code = BUN) mg/dL 7-18 GLOMERULAR FILTRATION RATE (test code = GFR) mL/min >=60 CREATININE (test code = CREAT) mg/dL 0.55-1.02 BUN/CREATININE RATIO (test code = BUN/CREA) 10-20 CALCIUM (test code = CA) mg/dL 8.5-10.1 HEPATIC FUNCTION [id number] 11:24:00* Test Item Value Reference Range Interpretation Comments TOTAL PROTEIN (test code = PROT) gram/dL 6.4-8.2 ALBUMIN (test code = ALB) g/dL 3.4-5.0 GLOBULIN (test code = GLOB) gram/dL 2.7-4.2 ALBUMIN/GLOBULIN RATIO (test code = A/G) 0.75-1.50 BILIRUBIN TOTAL (test code = BILT) mg/dL 0.0-1.0 BILIRUBIN DIRECT (test code = BILD) mg/dL 0.0-0.20 SGOT/AST (test code = AST) IUnit/L 15-37 SGPT/ALT (test code = ALT) IUnit/L 12-78 ALKALINE PHOSPHATASE TOTAL (test code = ALKP) IUnit/L 45-117 [id number] 11:24:00* Test Item Value Reference Range Interpretation Comments LIPASE (test code = LIP) U/L 73.0-393.0 Blood [id number] 09:50:00* Test Item Value Reference Range Interpretation Comments Blood Culture (test code = 76933319) NO GROWTH AFTER 5 DAYS, FINAL REPORT [facility]2019-11-12 09:50:00* Test Item Value Reference Range Interpretation Comments Blood Culture (test code = 29528281) NO GROWTH AFTER 5 DAYS, FINAL REPORT [facility]2019-11-12 09:50:00* Test Item Value Reference Range Interpretation Comments Blood Culture (test code = 34705812) NO GROWTH AFTER 5 DAYS, FINAL REPORT [facility] Vwxgadu7533-00-25 04:39:00* Test Item Value Reference Range Interpretation Comments Bedside Glucose (test code = 76720-2) 299 70-120 H Meter ID: [id number] Glucose 2019-08-23 04:39:00* Test Item Value Reference Range Interpretation Comments Bedside Glucose (test code = 21309-7) 299 70-120 H Meter ID: [id number] [facility] 2019-08-22 09:50:00* Test Item Value Reference Range Interpretation Comments Blood Culture (test code = 74098044) NO GROWTH AFTER 72 HOURS [facility]2019-11-10 08:41:00* Test Item Value Reference Range Interpretation Comments Wound Culture (test code = 6462-6) No Result Data Provided [facility]2019-11-10 08:41:00* Test Item Value Reference Range Interpretation Comments Wound Culture (test code = 6462-6) No Result Data Provided [facility] Jnapnhj5169-43-39 08:41:00* Test Item Value Reference Range Interpretation Comments Wound Culture (test code = 6462-6) No Result Data Provided [facility] Qvolbrb7078-89-36 08:41:00* Test Item Value Reference Range Interpretation Comments Wound Culture (test code = 6462-6) No Result Data Provided [facility] Jafxfwj1903-01-40 07:40:00* Test Item Value Reference Range Interpretation Comments Bedside Glucose (test code = 52427-6) 321 70-120 H Meter ID: [id number] [facility] Ptejzb0868-04-25 06:36:00* Test Item Value Reference Range Interpretation Comments Vancomycin Level Trough (test code = 4092-3) 4.5 5.0-10.0 L [facility] Tzawqa8988-36-72 06:36:00* Test Item Value Reference Range Interpretation Comments Vancomycin Level Trough (test code = 4092-3) 4.5 5.0-10.0 L [facility] CampusVancomycin Level Irbchk0166-67-55 06:36:00* Test Item Value Reference Range Interpretation Comments Vancomycin Level Trough (test code = 4092-3) 4.5 5.0-10.0 L [facility] CampusVancomycin Level Ftdvgg0513-83-22 06:36:00* Test Item Value Reference Range Interpretation Comments Vancomycin Level Trough (test code = 4092-3) 4.5 5.0-10.0 L [facility] [place] [facility] Ozarl8399-52-65 06:26:00* Test Item Value Reference Range Interpretation Comments Sodium Level (test code = 2951-2) 136 136-145 [facility] CampusPotassium Vszki0073-16-42 06:26:00* Test Item Value Reference Range Interpretation Comments Potassium Level (test code = 2823-3) 4.6 3.5-5.1 [facility] CampusChloride Iqyxf8017-63-18 06:26:00* Test Item Value Reference Range Interpretation Comments Chloride Level (test code = 2075-0) 98 98-107 [facility] CampusCarbon Dioxide Ebuhx3412-28-08 06:26:00* Test Item Value Reference Range Interpretation Comments Carbon Dioxide Level (test code = 2028-9) 30 22-29 H [facility] CampusAnion Nkr5180-45-26 06:26:00* Test Item Value Reference Range Interpretation Comments Anion Gap (test code = 97658-2) 12.6 8-16 [facility] CampusBlood Urea Qvbxobxb9663-40-55 06:26:00* Test Item Value Reference Range Interpretation Comments Blood Urea Nitrogen (test code = 3094-0) 14 7-26 [facility] CampusCreatinine2019-11-10 06:26:00* Test Item Value Reference Range Interpretation Comments Creatinine (test code = 2160-0) 0.61 0.57-1.11 [facility] CampusBUN/Creatinine Isofz7433-60-11 06:26:00* Test Item Value Reference Range Interpretation Comments BUN/Creatinine Ratio (test code = 3097-3) 23 6-25 [facility] CampusEstimat Glomerular Filtration Rate 2019-08-22 06:26:00* Test Item Value Reference Range Interpretation Comments Estimat Glomerular Filtration Rate (test code = 256671779) > 60 >60 Ranges were taken from the National Kidney Disease Education Program and the [facility] literature.Reference ranges:60 or greater: Pvjwak97-00 ( for 3 consecutive months): Chronic kidney disease 15 or less: Kidney failureThe Hospitals of Providence Transmount[facility] CampusGlucose Vteob6939-81-47 06:26:00* Test Item Value Reference Range Interpretation Comments Glucose Level (test code = BVL8516) 314 74-118 H [facility] CampusCalcium Uhgqu8272-32-42 06:26:00* Test Item Value Reference Range Interpretation Comments Calcium Level (test code = 30665-9) 10.0 8.4-10.2 [facility] [place] [facility] Hcxqr8176-50-35 06:26:00* Test Item Value Reference Range Interpretation Comments Sodium Level (test code = 2951-2) 136 136-145 [facility] CampusPotassium Ixhwm8592-68-86 06:26:00* Test Item Value Reference Range Interpretation Comments Potassium Level (test code = 2823-3) 4.6 3.5-5.1 [facility] CampusChloride Slosr7895-54-72 06:26:00* Test Item Value Reference Range Interpretation Comments Chloride Level (test code = 2075-0) 98 98-107 [facility] CampusCarbon Dioxide Xfdgj4288-84-35 06:26:00* Test Item Value Reference Range Interpretation Comments Carbon Dioxide Level (test code = 2028-9) 30 22-29 H [facility] CampusAnion Bky1002-94-18 06:26:00* Test Item Value Reference Range Interpretation Comments Anion Gap (test code = 13788-5) 12.6 8-16 [facility] CampusBlood Urea Ksaaisok3204-58-09 06:26:00* Test Item Value Reference Range Interpretation Comments Blood Urea Nitrogen (test code = 3094-0) 14 7-26 [facility] CampusCreatinine2019-11-10 06:26:00* Test Item Value Reference Range Interpretation Comments Creatinine (test code = 2160-0) 0.61 0.57-1.11 [facility] CampusBUN/Creatinine Lmtvq6775-31-25 06:26:00* Test Item Value Reference Range Interpretation Comments BUN/Creatinine Ratio (test code = 3097-3) 23 6-25 [facility] CampusEstimat Glomerular Filtration Rate 2019-08-22 06:26:00* Test Item Value Reference Range Interpretation Comments Estimat Glomerular Filtration Rate (test code = 180213796) > 60 >60 Ranges were taken from the National Kidney Disease Education Program and the [facility] literature.Reference ranges:60 or greater: Kdemmi94-54 ( for 3 consecutive months): Chronic kidney disease 15 or less: Kidney failureThe Hospitals of Providence Trans[facility] CampusGlucose Dmzcx3967-51-00 06:26:00* Test Item Value Reference Range Interpretation Comments Glucose Level (test code = OGW3620) 314 74-118 H [facility] CampusCalcium Ncvve7482-85-62 06:26:00* Test Item Value Reference Range Interpretation Comments Calcium Level (test code = 57540-7) 10.0 8.4-10.2 [facility] [place] [facility] Yniqj8786-72-99 06:26:00* Test Item Value Reference Range Interpretation Comments Sodium Level (test code = 2951-2) 136 136-145 [facility] CampusPotassium Arzld7505-37-50 06:26:00* Test Item Value Reference Range Interpretation Comments Potassium Level (test code = 2823-3) 4.6 3.5-5.1 [facility] CampusChloride Fioim3934-75-02 06:26:00* Test Item Value Reference Range Interpretation Comments Chloride Level (test code = 2075-0) 98 98-107 [facility] CampusCarbon Dioxide Ihpik5743-74-42 06:26:00* Test Item Value Reference Range Interpretation Comments Carbon Dioxide Level (test code = 2028-9) 30 22-29 H [facility] CampusAnion Dtb6021-51-35 06:26:00* Test Item Value Reference Range Interpretation Comments Anion Gap (test code = 48786-9) 12.6 8-16 [facility] CampusBlood Urea Bagixido2394-42-04 06:26:00* Test Item Value Reference Range Interpretation Comments Blood Urea Nitrogen (test code = 3094-0) 14 7-26 [facility] CampusCreatinine2019-11-10 06:26:00* Test Item Value Reference Range Interpretation Comments Creatinine (test code = 2160-0) 0.61 0.57-1.11 [facility] CampusBUN/Creatinine Yqmnz2769-86-65 06:26:00* Test Item Value Reference Range Interpretation Comments BUN/Creatinine Ratio (test code = 3097-3) 23 6-25 [facility] CampusEstimat Glomerular Filtration Rate 2019-08-22 06:26:00* Test Item Value Reference Range Interpretation Comments Estimat Glomerular Filtration Rate (test code = 891006423) > 60 >60 Ranges were taken from the National Kidney Disease Education Program and the [facility] Kidney Foundation literature.Reference ranges:60 or greater: Sboxdy12-59 ( for 3 consecutive months): Chronic kidney disease 15 or less: Kidney failureThe Hospitals of Providence Trans[facility] CampusGlucose Nsdiw5572-70-26 06:26:00* Test Item Value Reference Range Interpretation Comments Glucose Level (test code = LCN0161) 314 74-118 H [facility] CampusCalcium Tftnm1351-22-65 06:26:00* Test Item Value Reference Range Interpretation Comments Calcium Level (test code = 37757-9) 10.0 8.4-10.2 [facility] CampusWhite Blood Koetd6567-20-76 06:00:00* Test Item Value Reference Range Interpretation Comments White Blood Count (test code = 6690-2) 9.60 4.8-10.8 [facility] CampusRed Blood Sfobi2286-39-85 06:00:00* Test Item Value Reference Range Interpretation Comments Red Blood Count (test code = 789-8) 3.95 3.6-5.1 [facility] CampusHemoglobin2019-11-10 06:00:00* Test Item Value Reference Range Interpretation Comments Hemoglobin (test code = 91869-1) 11.6 12.0-16.0 L [facility] CampusHematocrit2019-11-10 06:00:00* Test Item Value Reference Range Interpretation Comments Hematocrit (test code = 4544-3) 34.0 34.2-44.1 L [facility] CampusMean Corpuscular Uzknoq2073-58-68 06:00:00* Test Item Value Reference Range Interpretation Comments Mean Corpuscular Volume (test code = 787-2) 86.1 81-99 [facility] CampusMean Corpuscular Jmewpmahzm9977-20-85 06:00:00* Test Item Value Reference Range Interpretation Comments Mean Corpuscular Hemoglobin (test code = 785-6) 29.4 28-32 [facility] CampusMe Corpuscular Hemoglobin Concent 2019-08-22 06:00:00* Test Item Value Reference Range Interpretation Comments Mean Corpuscular Hemoglobin Concent (test code = 786-4) 34.1 31-35 [facility] Cell Distribution Iorpl1120-41-47 06:00:00* Test Item Value Reference Range Interpretation Comments Red Cell Distribution Width (test code = 30093-0) 12.7 11.7 -14.4 [facility] CampusPlatelet Hzhch7132-81-92 06:00:00* Test Item Value Reference Range Interpretation Comments Platelet Count (test code = 777-3) 319 140-360 [facility] CampusNeutrophils (%) (Auto)2019-08-22 06:00:00 * Test Item Value Reference Range Interpretation Comments Neutrophils (%) (Auto) (test code = 89472-0) 77.9 38.7-80.0 [facility] CampusLymphocytes (%) (Auto)2019-08-22 06:00:00 * Test Item Value Reference Range Interpretation Comments Lymphocytes (%) (Auto) (test code = 736-9) 15.3 18.0-39.1 L [facility] CampusMonocytes (%) (Auto)2019-08-22 06:00:00* Test Item Value Reference Range Interpretation Comments Monocytes (%) (Auto) (test code = 5905-5) 6.1 4.4-11.3 [facility] CampusEosinophils (%) (Auto)2019-08-22 06:00:00 * Test Item Value Reference Range Interpretation Comments Eosinophils (%) (Auto) (test code = 713-8) 0.0 0.0-6.0 [facility] CampusBasophils (%) (Auto)2019-08-22 06:00:00* Test Item Value Reference Range Interpretation Comments Basophils (%) (Auto) (test code = 706-2) 0.2 0.0-1.0 [facility] CampusIM GRANULOCYTES %2019-08-22 06:00:00* Test Item Value Reference Range Interpretation Comments IM GRANULOCYTES % (test code = IM GRANULOCYTES %) 0.5 0.0- 1.0 [facility] CampusNeutrophils # (Auto)2019-08-22 06:00:00* Test Item Value Reference Range Interpretation Comments Neutrophils # (Auto) (test code = 751-8) 7.5 2.1-6.9 H [facility] CampusLymphocytes # (Auto)2019-08-22 06:00:00* Test Item Value Reference Range Interpretation Comments Lymphocytes # (Auto) (test code = 28504-8) 1.5 1.0-3.2 [facility] CampusMonocytes # (Auto)2019-08-22 06:00:00* Test Item Value Reference Range Interpretation Comments Monocytes # (Auto) (test code = 742-7) 0.6 0.2-0.8 [facility] CampusEosinophils # (Auto)2019-08-22 06:00:00* Test Item Value Reference Range Interpretation Comments Eosinophils # (Auto) (test code = 711-2) 0.0 0.0-0.4 [facility] CampusBasophils # (Auto)2019-08-22 06:00:00* Test Item Value Reference Range Interpretation Comments Basophils # (Auto) (test code = 704-7) 0.0 0.0-0.1 [facility] CampusAbsolute Immature Granulocyte (auto 2019-08-22 06:00:00* Test Item Value Reference Range Interpretation Comments Absolute Immature Granulocyte (auto (chiquita t code = Absolute Immature Granulocyte (auto) 0.05 0-0.1 [facility] CampusWhite Blood Rigdg5947-75-74 06:00:00* Test Item Value Reference Range Interpretation Comments White Blood Count (test code = 6690-2) 9.60 4.8-10.8 [facility] CampusRed Blood Unyfk9420-15-35 06:00:00* Test Item Value Reference Range Interpretation Comments Red Blood Count (test code = 789-8) 3.95 3.6-5.1 [facility] CampusHemoglobin2019-11-10 06:00:00* Test Item Value Reference Range Interpretation Comments Hemoglobin (test code = 18071-2) 11.6 12.0-16.0 L [facility] CampusHematocrit2019-11-10 06:00:00* Test Item Value Reference Range Interpretation Comments Hematocrit (test code = 4544-3) 34.0 34.2-44.1 L [facility] CampusMean Corpuscular Tgyybs6739-32-42 06:00:00* Test Item Value Reference Range Interpretation Comments Mean Corpuscular Volume (test code = 787-2) 86.1 81-99 [facility] CampusMean Corpuscular Awznkjonsk2015-19-20 06:00:00* Test Item Value Reference Range Interpretation Comments Mean Corpuscular Hemoglobin (test code = 785-6) 29.4 28-32 [facility] Concent 2019-08-22 06:00:00* Test Item Value Reference Range Interpretation Comments Mean Corpuscular Hemoglobin Concent (test code = 786-4) 34.1 31-35 [facility] CampusRed Cell Distribution Luuwa7537-85-31 06:00:00* Test Item Value Reference Range Interpretation Comments Red Cell Distribution Width (test code = 39013-0) 12.7 11.7 -14.4 [facility] CampusPlatelet Vymrc7613-22-73 06:00:00* Test Item Value Reference Range Interpretation Comments Platelet Count (test code = 777-3) 319 140-360 [facility] CampusNeutrophils (%) (Auto)2019-08-22 06:00:00 * Test Item Value Reference Range Interpretation Comments Neutrophils (%) (Auto) (test code = 70842-4) 77.9 38.7-80.0 [facility] CampusLymphocytes (%) (Auto)2019-08-22 06:00:00 * Test Item Value Reference Range Interpretation Comments Lymphocytes (%) (Auto) (test code = 736-9) 15.3 18.0-39.1 L [facility] CampusMonocytes (%) (Auto)2019-08-22 06:00:00* Test Item Value Reference Range Interpretation Comments Monocytes (%) (Auto) (test code = 5905-5) 6.1 4.4-11.3 [facility] CampusEosinophils (%) (Auto)2019-08-22 06:00:00 * Test Item Value Reference Range Interpretation Comments Eosinophils (%) (Auto) (test code = 713-8) 0.0 0.0-6.0 [facility] CampusBasophils (%) (Auto)2019-08-22 06:00:00* Test Item Value Reference Range Interpretation Comments Basophils (%) (Auto) (test code = 706-2) 0.2 0.0-1.0 [facility] CampusIM GRANULOCYTES %2019-08-22 06:00:00* Test Item Value Reference Range Interpretation Comments IM GRANULOCYTES % (test code = IM GRANULOCYTES %) 0.5 0.0- 1.0 [facility] CampusNeutrophils # (Auto)2019-08-22 06:00:00* Test Item Value Reference Range Interpretation Comments Neutrophils # (Auto) (test code = 751-8) 7.5 2.1-6.9 H [facility] CampusLymphocytes # (Auto)2019-08-22 06:00:00* Test Item Value Reference Range Interpretation Comments Lymphocytes # (Auto) (test code = 20972-8) 1.5 1.0-3.2 [facility] CampusMonocytes # (Auto)2019-08-22 06:00:00* Test Item Value Reference Range Interpretation Comments Monocytes # (Auto) (test code = 742-7) 0.6 0.2-0.8 [facility] CampusEosinophils # (Auto)2019-08-22 06:00:00* Test Item Value Reference Range Interpretation Comments Eosinophils # (Auto) (test code = 711-2) 0.0 0.0-0.4 [facility] CampusBasophils # (Auto)2019-08-22 06:00:00* Test Item Value Reference Range Interpretation Comments Basophils # (Auto) (test code = 704-7) 0.0 0.0-0.1 [facility] CampusAbsolute Immature Granulocyte (auto 2019-08-22 06:00:00* Test Item Value Reference Range Interpretation Comments Absolute Immature Granulocyte (auto (chiquita t code = Absolute Immature Granulocyte (auto) 0.05 0-0.1 [facility] CampusWhite Blood Hcxcj4507-93-29 06:00:00* Test Item Value Reference Range Interpretation Comments White Blood Count (test code = 6690-2) 9.60 4.8-10.8 [facility] CampusRed Blood Mgttv0774-79-12 06:00:00* Test Item Value Reference Range Interpretation Comments Red Blood Count (test code = 789-8) 3.95 3.6-5.1 [facility] CampusHemoglobin2019-11-10 06:00:00* Test Item Value Reference Range Interpretation Comments Hemoglobin (test code = 33053-5) 11.6 12.0-16.0 L [facility] CampusHematocrit2019-11-10 06:00:00* Test Item Value Reference Range Interpretation Comments Hematocrit (test code = 4544-3) 34.0 34.2-44.1 L [facility] CampusMean Corpuscular Ltojum9342-56-33 06:00:00* Test Item Value Reference Range Interpretation Comments Mean Corpuscular Volume (test code = 787-2) 86.1 81-99 [facility] CampusMean Corpuscular Hiixclovwm8682-93-03 06:00:00* Test Item Value Reference Range Interpretation Comments Mean Corpuscular Hemoglobin (test code = 785-6) 29.4 28-32 [facility] CampusMean Corpuscular Hemoglobin Concent 2019-08-22 06:00:00* Test Item Value Reference Range Interpretation Comments Mean Corpuscular Hemoglobin Concent (test code = 786-4) 34.1 31-35 [facility] CampusRed Cell Distribution Adtog5184-30-35 06:00:00* Test Item Value Reference Range Interpretation Comments Red Cell Distribution Width (test code = 61269-8) 12.7 11.7 -14.4 [facility] CampusPlatelet Nshct1972-35-97 06:00:00* Test Item Value Reference Range Interpretation Comments Platelet Count (test code = 777-3) 319 140-360 [facility] CampusNeutrophils (%) (Auto)2019-08-22 06:00:00 * Test Item Value Reference Range Interpretation Comments Neutrophils (%) (Auto) (test code = 88204-4) 77.9 38.7-80.0 [facility] CampusLymphocytes (%) (Auto)2019-08-22 06:00:00 * Test Item Value Reference Range Interpretation Comments Lymphocytes (%) (Auto) (test code = 736-9) 15.3 18.0-39.1 L [facility] CampusMonocytes (%) (Auto)2019-08-22 06:00:00* Test Item Value Reference Range Interpretation Comments Monocytes (%) (Auto) (test code = 5905-5) 6.1 4.4-11.3 [facility] CampusEosinophils (%) (Auto)2019-08-22 06:00:00 * Test Item Value Reference Range Interpretation Comments Eosinophils (%) (Auto) (test code = 713-8) 0.0 0.0-6.0 [facility] CampusBasophils (%) (Auto)2019-08-22 06:00:00* Test Item Value Reference Range Interpretation Comments Basophils (%) (Auto) (test code = 706-2) 0.2 0.0-1.0 [facility] CampusIM GRANULOCYTES %2019-08-22 06:00:00* Test Item Value Reference Range Interpretation Comments IM GRANULOCYTES % (test code = IM GRANULOCYTES %) 0.5 0.0- 1.0 [facility] CampusNeutrophils # (Auto)2019-08-22 06:00:00* Test Item Value Reference Range Interpretation Comments Neutrophils # (Auto) (test code = 751-8) 7.5 2.1-6.9 H [facility] CampusLymphocytes # (Auto)2019-08-22 06:00:00* Test Item Value Reference Range Interpretation Comments Lymphocytes # (Auto) (test code = 54441-1) 1.5 1.0-3.2 [facility] CampusMonocytes # (Auto)2019-08-22 06:00:00* Test Item Value Reference Range Interpretation Comments Monocytes # (Auto) (test code = 742-7) 0.6 0.2-0.8 [facility] CampusEosinophils # (Auto)2019-08-22 06:00:00* Test Item Value Reference Range Interpretation Comments Eosinophils # (Auto) (test code = 711-2) 0.0 0.0-0.4 [facility] CampusBasophils # (Auto)2019-08-22 06:00:00* Test Item Value Reference Range Interpretation Comments Basophils # (Auto) (test code = 704-7) 0.0 0.0-0.1 [facility] CampusAbsolute Immature Granulocyte (auto 2019-08-22 06:00:00* Test Item Value Reference Range Interpretation Comments Absolute Immature Granulocyte (auto (chiquita t code = Absolute Immature Granulocyte (auto) 0.05 0-0.1 [facility] ResourcesHOULDER RIGHT 1 [id number] 19:34:00 [place] [address] Patient Name: YOLETTE URIEB MR #: [id number] : 1975 Age/Sex: 44/F Req #: [id number] Adm Physician: JAZLYN ARZATE MD Ordered by: Aby Urban 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 Technique: Single AP image of t he right shoulder obtained without comparison. Findings: There is no c urrent dislocation. No evidence of fracture involving the humeral head. Visu alized proximal shaft is intact. The clavicle is intact. No fracture evident involving the visualized portion of the scapula. Portions are overlapped by l ateral ribs on all images however. IMPRESSION: No evidence of acute fr acture or dislocation. Signed by: Dr. 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 HISTORY:Fall. COMPARISON:CT brain from 01/11. TECHNIQUE: Multidetector axial images were obtained from the forame n magnum to the vertex without contrast. The images were reconstructed using b rain and bone algorithms. Thin section brain images were reformatted into cor onal and sagittal planes. Dose modulation,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 CampusLymphocytes (%) (Auto)2019-08-17 01:16:00 * Test Item Value Reference Range Interpretation Comments Lymphocytes (%) (Auto) (test code = 736-9) 22.5 18.0-39.1 [facility] CampusMonocytes (%) (Auto)2019-08-17 01:16:00* Test Item Value Reference Range Interpretation Comments Monocytes (%) (Auto) (test code = 5905-5) 6.3 4.4-11.3 [facility] CampusEosinophils (%) (Auto)2019-08-17 01:16:00 * Test Item Value Reference Range Interpretation Comments Eosinophils (%) (Auto) (test code = 713-8) 0.7 0.0-6.0 [facility] CampusBasophils (%) (Auto)2019-08-17 01:16:00* Test Item Value Reference Range Interpretation Comments Basophils (%) (Auto) (test code = 706-2) 0.3 0.0-1.0 [facility] CampusIM GRANULOCYTES %2019-08-17 01:16:00* Test Item Value Reference Range Interpretation Comments IM GRANULOCYTES % (test code = IM GRANULOCYTES %) 0.3 0.0- 1.0 [facility] CampusNeutrophils # (Auto)2019-08-17 01:16:00* Test Item Value Reference Range Interpretation Comments Neutrophils # (Auto) (test code = 751-8) 8.1 2.1-6.9 H [facility] CampusLymphocytes # (Auto)2019-08-17 01:16:00* Test Item Value Reference Range Interpretation Comments Lymphocytes # (Auto) (test code = 07520-5) 2.6 1.0-3.2 [facility] CampusMonocytes # (Auto)2019-08-17 01:16:00* Test Item Value Reference Range Interpretation Comments Monocytes # (Auto) (test code = 742-7) 0.7 0.2-0.8 [facility] CampusEosinophils # (Auto)2019-08-17 01:16:00* Test Item Value Reference Range Interpretation Comments Eosinophils # (Auto) (test code = 711-2) 0.1 0.0-0.4 [facility] CampusBasophils # (Auto)2019-08-17 01:16:00* Test Item Value Reference Range Interpretation Comments Basophils # (Auto) (test code = 704-7) 0.0 0.0-0.1 [facility] CampusAbsolute Immature Granulocyte (auto 2019-08-17 01:16:00* Test Item Value Reference Range Interpretation Comments Absolute Immature Granulocyte (auto (chiquita t code = Absolute Immature Granulocyte (auto) 0.04 0-0.1 [facility] Resourcesodium Mgzxj0584-85-64 00:34:00* Test Item Value Reference Range Interpretation Comments Sodium Level (test code = 2951-2) 132 136-145 L [facility] CampusPotassium Gtcat5868-30-49 00:34:00* Test Item Value Reference Range Interpretation Comments Potassium Level (test code = 2823-3) 4.0 3.5-5.1 [facility] CampusChloride Xkcou8109-65-56 00:34:00* Test Item Value Reference Range Interpretation Comments Chloride Level (test code = 2075-0) 93 98-107 L [facility] CampusCarbon Dioxide Aklfs1365-49-27 00:34:00* Test Item Value Reference Range Interpretation Comments Carbon Dioxide Level (test code = 2028-9) 23 22-29 [facility] CampusAnion Ebr5561-82-45 00:34:00* Test Item Value Reference Range Interpretation Comments Anion Gap (test code = 36458-2) 20.0 8-16 H [facility] CampusBlood Urea Qbcigsnt7230-37-21 00:34:00* Test Item Value Reference Range Interpretation Comments Blood Urea Nitrogen (test code = 3094-0) 7 7-26 [facility] CampusCreatinine2019-11-05 00:34:00* Test Item Value Reference Range Interpretation Comments Creatinine (test code = 2160-0) 0.93 0.57-1.11 [facility] CampusBUN/Creatinine Emxsa2555-64-79 00:34:00* Test Item Value Reference Range Interpretation Comments BUN/Creatinine Ratio (test code = 3097-3) 8 6-25 [facility] CampusEstimat Glomerular Filtration Rate 2019-08-17 00:34:00* Test Item Value Reference Range Interpretation Comments Estimat Glomerular Filtration Rate (test code = 733778869) > 60 >60 Ranges were taken from the National Kidney Disease Education Program and the [facility] [employer] literature.Reference ranges:60 or greater: Yeuwbz48-13 ( for 3 consecutive months): Chronic kidney disease 15 or less: Kidney failureThe Hospitals of Providence Transmountain CampusGlucose Huijw1296-36-25 00:34:00* Test Item Value Reference Range Interpretation Comments Glucose Level (test code = AWR2833) 689 74-118 Results repeated and called to JOJO ROSA RN at 0033 on 08/17/[address] Read back and verified.[facility] CampusCalcium Qfvao2307-66-59 00:34:00* Test Item Value Reference Range Interpretation Comments Calcium Level (test code = 72601-8) 10.0 8.4-10.2 [facility] CampusDIABETIC FOOT WRFA1111-76-49 11:47:47 nEa Stevens PA 08/14/2019 7:30 PMDiabetic Foot Exam was performed at 08/14/2019 11:47 AM. Right foot sensation is normal, right foot pulses are isabel l, right foot appearance is normal. Left foot sensation is normal, left foot p ulses are normal, left foot appearance is normal. [facility]Hep[facility] Iuasp6164-93-24 20:41:00* Test Item Value Reference Range Interpretation Comments Hepatitis C Virus (HCV) Antibody (test code = 76717-5) Negative Negative Hep B Surface Ag (test code = 5196-1) Negative Negative Hep A Vir Ab IgM (test code = 29044-9) Negative Negative Hep B Core Ab IgM (test code = 36293-4) Negative Negative Lab Interpretation (test code = 27471-0) Normal [facility] SystemTS [Thyroid Stimulating Hormone]2019-07-28 20:02:00* Test Item Value Reference Range Interpretation Comments TSH (test code = 41272593) 1.41 0.57- 3.74 uIU/mL If , please see the following reference ranges (not verified by lab): 1st Trimester: 0.05 -3.70 uIU/mL2nd Trimester: 0.31 -4.35 uIU/mL3rd Trimester: 0.41 - 5.18 uIU/mL Lab Interpretation (test code = 92602-8) Normal [facility]HIV[facility]/HIV-2 Routine Wvhvltexw2425-50-78 13:44:00* Test Item Value Reference Range Interpretation Comments HIV Ag/Ab Combo (test code = 82014-0) Negative Negative Lab Interpretation (test code = 65740-9) Normal [facility] SystemSyphilis Screen for Gtylhbpfk1457-89-04 09:20:00* Test Item Value Reference Range Interpretation Comments TPA (test code = 85657-9) Negative Negative, Equivocal Final Report (test code = 02146-8) Negative Negative Lab Interpretation (test code = 76101-0) Normal [facility] HealthLipid Fdzgswk5997-78-25 08:06:00* Test Item Value Reference Range Interpretation Comments Cholesterol (test code = 2093-3) 221.0 mg/dL <=200.0 H Triglyceride (test code = 45440269) 308 mg/dL <150 H HDL (test code = 2085-9) 41.0 mg/dL See Reference Range Narrative . LDL (test code = 28435-0) 118 mg/dL <100 H Op timal: < 100.0 mg/dLNear Optimal: 120-129 mg/dLBorderline: 130-159 mg/dLHigh: 160-189 mg/dLVery High: >=190 mg/dL Patient Fasting? (test code = 16575450) Yes Lab Interpretation (test code = 43038-2) Abnormal [facility] SystemLiver Voemfkq4257-05-76 08:06:00* Test Item Value Reference Range Interpretation Comments Bilirubin, Total (test code = 2885-2) 0.3 mg/dL 0.2-1.2 Alkaline Phosphatase (test code = 99168809) 93 U/L 34-104 AST (test code = 77743409) 14 U/L 13-39 Direct Bilirubin (test code = 1968-7) 0.0 mg/dL 0-0.2 ALT (test code = 61168404) 13 U/L 7-52 Albumin (test code = 23843-3) 4.3 g/dL 3.7-5.3 Lab Interpretation (test code = 68345-4) Normal [facility] SystemCBC/Whtf0079-37-40 07:27:00* Test Item Value Reference Range Interpretation Comments WBC (test code = 6690-2) 4.6 K/uL 4.5-11 RBC (test code = 789-8) 4.79 4.20- 5.40 M/uL Hemoglobin (test code = 718-7) 13.9 g/dL 12-16 Hematocrit (test code = 4544-3) 41.8 % 37-47 MCV (test code = 787-2) 87.3 fL 82-92 MCH (test code = 785-6) 29.0 pg 27-32 MCHC (test code = 786-4) 33.3 g/dL 32-36 RDW (test code = 68006-1) 39.8 fL 36.4-46.3 Platelet (test code = 777-3) 240 K/uL 150-400 Mean Platelet Volume (test code = 76714-2) 11.6 fL 9.4-12.4 Percent NRBC (test code = 96776370) 0.0 % Neutrophil (test code = 770-8) 52.2 % 34-70 Lymphs (test code = 736-9) 37.9 % 20-50 Monocytes (test code = 5905-5) 8.4 % 5-12 Eos (test code = 713-8) 0.9 % 0.7-5 Basos (test code = 706-2) 0.6 % 0.1-1.2 Immature Granulocytes (test code = 38076639) 0.0 % 0-0.5 Neutrophils (Absolute) (test code = 67765928) 2.41 K/uL 1.56-6.1 3 Lymphs (Absolute) (test code = 59908757) 1.75 K/uL 1.18-3.74 Monocytes(Absolute) (test code = 46791262) 0.39 K/uL 0.24-0.36 H Eos (Absolute) (test code = 94959089) 0.04 K/uL 0.04-0.36 Baso (Absolute) (test code = 44994341) 0.03 K/uL 0.01-0.08 Immature Grans (Abs) (test code = 35518387) 0.00 K/uL 0-0.03 Absolute NRBC (test code = 57564830) 0.00 K/uL Lab Interpretation (test code = 43081-1) Abnormal [facility]/ DNA Kfoqbdlbhedjs5478-30-86 18:07:00* Test Item Value Reference Range Interpretation Comments Chlamydia trachomatis (test code = 32435-0) Negative Negative N. gonorrhoeae (test code = 25678-8) Negative Negative KEO (test code = KEO) This test utilizes Wibiya A ptima Combo 2 Assay for target amplification of rRNA for the qualitative detection of Chlamydia trachomatis and Neisseria gonorrhoeae. Lab Interpretation (test code = 45558-7) Normal Counts include 234 beds at the [facility] Drug Zgggwh7959-11-79 15:00:00* Test Item Value Reference Range Interpretation Comments Opiate, Ur (test code = 04102-6) Positive Negative A Calibrated Standard: Morphine Positive if urine level > or = 300 ng/dL Amphetamine (test code = 19077-7) Negative Negative Calibrated Standard: D- Methamphetamine Positive if urine level > or = 1000 ng/mL Barbiturate (test code = 38796-6) Negative Negative Calibrated Standard: Secobarbital Positive if urine level is > or = 200 ng/mL Benzodiazepine (test code = 26998-6) Negative Negative Calibrated Standard: Lormethazepam Positive if urine level is > or = 200 ng/mL Cocaine (test code = 74929-8) Negative Negative Calibrated Standard: Benzoylecgonine Positive if urine level > or = 300 ng/dL PCP (test code = 68485-2) Negative Negative C alibrated Standard: Phencyclidine Positive if urine level > or = 25 ng/dL Cannabinoid (test code = 39841-2) Negative Negative Calibrated Standard: 11 nor-delta(9)-THC carboxylic acid Positive if urine level > or = 50 ng/mL Lab Interpretation (test code = 27068-8) Abnormal [facility] BMP - In Lab (STAT)2019-07-27 14:01:00* Test Item Value Reference Range Interpretation Comments Hold Specimen (test code = 55901410) Complete [facility] Jvzcbmj4057-78-47 23:29:00* Test Item Value Reference Range Interpretation Comments Bedside Glucose (test code = 50157-0) 300 70-120 H Meter ID: [id number] [facility] Glucose 2019-06-17 23:29:00* Test Item Value Reference Range Interpretation Comments Bedside Glucose (test code = 58454-4) 300 70-120 H Meter ID: [id number] [facility] 2019-[facility]-17 22:47:00* Test Item Value Reference Range Interpretation Comments Blood Urea Nitrogen (test code = 3094-0) 10 7-26 [facility]Creatinine Ctpie4038-16-79 22:47:00* Test Item Value Reference Range Interpretation Comments BUN/Creatinine Ratio (test code = 3097-3) 11 - [facility]Blood Urea Ixttnpxc9797-35-02 22:47:00* Test Item Value Reference Range Interpretation Comments Blood Urea Nitrogen (test code = 3094-0) 10 05-07 [facility]BUN/Creatinine Dopww0536-90-98 22:47:00* Test Item Value Reference Range Interpretation Comments BUN/Creatinine Ratio (test code = 3097-3) 11 - [facility] Jwjrs9004-93-99 22:28:00* Test Item Value Reference Range Interpretation Comments Sodium Level (test code = 2951-2) 132 136-145 L [facility] CampusPotassium Mfusw7997-74-36 22:28:00* Test Item Value Reference Range Interpretation Comments Potassium Level (test code = 2823-3) 4.2 3.5-5.1 [facility] CampusChloride Eecpz8672-50-79 22:28:00* Test Item Value Reference Range Interpretation Comments Chloride Level (test code = 2075-0) 93 98-107 L [facility] CampusCarbon Dioxide Kpdyh8374-01-42 22:28:00* Test Item Value Reference Range Interpretation Comments Carbon Dioxide Level (test code = 2028-9) 29 22-29 [facility] CampusAnion Rfc5956-16-33 22:28:00* Test Item Value Reference Range Interpretation Comments Anion Gap (test code = 35099-4) 14.2 8-16 [facility] CampusCreatinine2019-09-05 22:28:00* Test Item Value Reference Range Interpretation Comments Creatinine (test code = 2160-0) 0.83 0.57-1.11 [facility] CampusEstimat Glomerular Filtration Rate 2019-06-17 22:28:00* Test Item Value Reference Range Interpretation Comments Estimat Glomerular Filtration Rate (test code = 609669570) > 60 >60 Ranges were taken from the National Kidney Disease Education Program and the [facility] [employer] literature.Reference ranges:60 or greater: Hcwalf40-33 ( for 3 consecutive months): Chronic kidney disease 15 or less: Kidney failureThe Hospitals of Providence [facility] CampusGlucose Phace7711-54-31 22:28:00* Test Item Value Reference Range Interpretation Comments Glucose Level (test code = FVW1231) 531 74-118 Results repeated and called to SHEKHAR ROSA at 2227 on 06/17/19 by MARIEL TSANG. Read back and verified.[facility] CampusCalcium Aqdpm3332-45-24 22:28:00* Test Item Value Reference Range Interpretation Comments Calcium Level (test code = 90273-8) 10.7 8.4-10.2 H [facility] CampusMagnesium Qopjz6267-47-53 22:28:00* Test Item Value Reference Range Interpretation Comments Magnesium Level (test code = 60932-4) 1.6 1.3-2.1 [facility] CampusTotal Azlldeavk4727-36-28 22:28:00* Test Item Value Reference Range Interpretation Comments Total Bilirubin (test code = 1975-2) 0.2 0.2-1.2 [facility] CampusAspartate Amino Transf (AST/SGOT) 2019-06-17 22:28:00* Test Item Value Reference Range Interpretation Comments Aspartate Amino Transf (AST/SGOT) (test code = Aspartate Amino Transf (AST/SGOT)) 9 5-34 [facility] CampusAlanine Aminotransferase (ALT/SGPT) 2019-06-17 22:28:00* Test Item Value Reference Range Interpretation Comments Alanine Aminotransferase (ALT/SGPT) (test code = 1742-6) 11 0-55 [facility] CampusTotal Goyvdfg6861-15-56 22:28:00* Test Item Value Reference Range Interpretation Comments Total Protein (test code = 2885-2) 7.0 6.5-8.1 [facility] CampusAlbumin2019-09-05 22:28:00* Test Item Value Reference Range Interpretation Comments Albumin (test code = 1751-7) 3.7 3.5-5.0 [facility] CampusGlobulin2019-09-05 22:28:00* Test Item Value Reference Range Interpretation Comments Globulin (test code = 68418-8) 3.3 2.3-3.5 [facility] CampusAlbumin/Globulin Briqg7404-47-16 22:28:00 * Test Item Value Reference Range Interpretation Comments Albumin/Globulin Ratio (test code = 1759-0) 1.1 0.8-2.0 [facility] CampusAlkaline Alwnrzmkysv6199-54-20 22:28:00* Test Item Value Reference Range Interpretation Comments Alkaline Phosphatase (test code = 6768-6) 132 40-150 [facility] Zwiai1846-38-70 22:28:00* Test Item Value Reference Range Interpretation Comments Sodium Level (test code = 2951-2) 132 136-145 L [facility] CampusPotassium Wfule4583-15-93 22:28:00* Test Item Value Reference Range Interpretation Comments Potassium Level (test code = 2823-3) 4.2 3.5-5.1 [facility] CampusChloride Mdbgi6354-49-46 22:28:00* Test Item Value Reference Range Interpretation Comments Chloride Level (test code = 2075-0) 93 98-107 L [facility] CampusCarbon Dioxide Ziecr2788-26-90 22:28:00* Test Item Value Reference Range Interpretation Comments Carbon Dioxide Level (test code = 2028-9) 29 22-29 [facility] CampusAnion Ctz0861-75-58 22:28:00* Test Item Value Reference Range Interpretation Comments Anion Gap (test code = 76737-9) 14.2 8-16 [facility] CampusCreatinine2019-09-05 22:28:00* Test Item Value Reference Range Interpretation Comments Creatinine (test code = 2160-0) 0.83 0.57-1.11 [facility] CampusEstimat Glomerular Filtration Rate 2019-06-17 22:28:00* Test Item Value Reference Range Interpretation Comments Estimat Glomerular Filtration Rate (test code = 341841867) > 60 >60 Ranges were taken from the National Kidney Disease Education Program and the [facility] literature.Reference ranges:60 or greater: Bmaqgp30-44 ( for 3 consecutive months): Chronic kidney disease 15 or less: Kidney failureThe Hospitals of Providence Trans[facility] CampusGlucose Ltfkm1751-59-12 22:28:00* Test Item Value Reference Range Interpretation Comments Glucose Level (test code = JDD5369) 537 74118 HH Results repeated and called to SHEKHAR ROSA at 2227 on 06/17/19 by MARIEL TSANG. Read back and verified.[facility] CampusCalcium Hgagb8231-38-30 22:28:00* Test Item Value Reference Range Interpretation Comments Calcium Level (test code = 00037-3) 10.7 8.4-10.2 H [facility] CampusMagnesium Vvdtr2401-93-19 22:28:00* Test Item Value Reference Range Interpretation Comments Magnesium Level (test code = 43738-5) 1.6 1.3-2.1 [facility] CampusTotal Lbppvywcp7893-84-54 22:28:00* Test Item Value Reference Range Interpretation Comments Total Bilirubin (test code = 1975-2) 0.2 0.2-1.2 [facility] CampusAspartate Amino Transf (AST/SGOT) 2019-06-17 22:28:00* Test Item Value Reference Range Interpretation Comments Aspartate Amino Transf (AST/SGOT) (test code = Aspartate Amino Transf (AST/SGOT)) 9 5-34 [facility] CampusAlanine Aminotransferase (ALT/SGPT) 2019-06-17 22:28:00* Test Item Value Reference Range Interpretation Comments Alanine Aminotransferase (ALT/SGPT) (test code = 1742-6) 11 0-55 [facility] CampusTotal Plhjndf7847-33-92 22:28:00* Test Item Value Reference Range Interpretation Comments Total Protein (test code = 2885-2) 7.0 6.5-8.1 [facility] CampusAlbumin2019-09-05 22:28:00* Test Item Value Reference Range Interpretation Comments Albumin (test code = 1751-7) 3.7 3.5-5.0 [facility] CampusGlobulin2019-09-05 22:28:00* Test Item Value Reference Range Interpretation Comments Globulin (test code = 52841-6) 3.3 2.3-3.5 [facility] CampusAlbumin/Globulin Zwbft7196-72-49 22:28:00 * Test Item Value Reference Range Interpretation Comments Albumin/Globulin Ratio (test code = 1759-0) 1.1 0.8-2.0 [facility] CampusAlkaline Oylmrdofmcs0246-27-21 22:28:00* Test Item Value Reference Range Interpretation Comments Alkaline Phosphatase (test code = 6768-6) 132 40-150 [facility] CampusMagnesium Unlcg0361-25-52 22:28:00* Test Item Value Reference Range Interpretation Comments Magnesium Level (test code = 92879-0) 1.6 1.3-2.1 [facility] CampusTotal Xnvqulpoz9866-79-86 22:28:00* Test Item Value Reference Range Interpretation Comments Total Bilirubin (test code = 1975-2) 0.2 0.2-1.2 [facility] CampusAspartate Amino Transf (AST/SGOT) 2019-06-17 22:28:00* Test Item Value Reference Range Interpretation Comments Aspartate Amino Transf (AST/SGOT) (test code = Aspartate Amino Transf (AST/SGOT)) 9 5-34 [facility] CampusAlanine Aminotransferase (ALT/SGPT) 2019-06-17 22:28:00* Test Item Value Reference Range Interpretation Comments Alanine Aminotransferase (ALT/SGPT) (test code = 1742-6) 11 0-55 [facility] CampusTotal Lfvuwzm6782-66-36 22:28:00* Test Item Value Reference Range Interpretation Comments Total Protein (test code = 2885-2) 7.0 6.5-8.1 [facility] CampusAlbumin2019-09-05 22:28:00* Test Item Value Reference Range Interpretation Comments Albumin (test code = 1751-7) 3.7 3.5-5.0 [facility] CampusGlobulin2019-09-05 22:28:00* Test Item Value Reference Range Interpretation Comments Globulin (test code = 75809-2) 3.3 2.3-3.5 [facility] CampusAlbumin/Globulin Uddpr3854-45-14 22:28:00 * Test Item Value Reference Range Interpretation Comments Albumin/Globulin Ratio (test code = 1759-0) 1.1 0.8-2.0 [facility] CampusAlkaline Ywdkbcwtkyy0100-96-82 22:28:00* Test Item Value Reference Range Interpretation Comments Alkaline Phosphatase (test code = 6768-6) 132 40-150 [facility] Eeyzi0505-75-36 22:28:00* Test Item Value Reference Range Interpretation Comments Magnesium Level (test code = 03510-6) 1.6 1.3-2.1 [facility] Wgjeb3724-32-81 22:28:00* Test Item Value Reference Range Interpretation Comments Magnesium Level (test code = 69765-4) 1.6 1.3-2.1 [facility] Ndiuo9780-42-67 22:28:00* Test Item Value Reference Range Interpretation Comments Magnesium Level (test code = 91051-7) 1.6 1.3-2.1 [facility] Pnvgd3980-27-71 22:28:00* Test Item Value Reference Range Interpretation Comments Magnesium Level (test code = 69254-8) 1.6 1.3-2.1 [facility] CampusInfluenza Virus Types A,B Antigen 2019-06-17 22:18:00* Test Item Value Reference Range Interpretation Comments Influenza Virus Types A,B Antigen (test code = 81905-0) NEGATIVE NEGATIVE [facility] CampusInfluenza Virus Types A,B Antigen 2019-06-17 22:18:00* Test Item Value Reference Range Interpretation Comments Influenza Virus Types A,B Antigen (test code = 67150-2) NEGATIVE NEGATIVE [facility] CampusInfluenza Virus Types A,B Antigen 2019-06-17 22:18:00* Test Item Value Reference Range Interpretation Comments Influenza Virus Types A,B Antigen (test code = 91528-8) NEGATIVE NEGATIVE [facility] CampusInfluenza Virus Types A,B Antigen 2019-06-17 22:18:00* Test Item Value Reference Range Interpretation Comments Influenza Virus Types A,B Antigen (test code = 32194-8) NEGATIVE NEGATIVE [facility] CampusInfluenza Virus Types A,B Antigen 2019-06-17 22:18:00* Test Item Value Reference Range Interpretation Comments Influenza Virus Types A,B Antigen (test code = 04100-2) NEGATIVE NEGATIVE [facility] CampusInfluenza Virus Types A,B Antigen 2019-06-17 22:18:00* Test Item Value Reference Range Interpretation Comments Influenza Virus Types A,B Antigen (test code = 91489-0) NEGATIVE NEGATIVE [facility] CampusGroup A Streptococcus Bxaxsr0668-91-26 22:08:00* Test Item Value Reference Range Interpretation Comments Group A Streptococcus Screen (test code = 59939-7) NEGATIVE NEG ATIVE [facility] CampusGroup A Streptococcus Nmasfc8459-57-08 22:08:00* Test Item Value Reference Range Interpretation Comments Group A Streptococcus Screen (test code = 61456-1) NEGATIVE NEG ATIVE [facility] CampusGroup A Streptococcus Fvnoia4570-42-90 22:08:00* Test Item Value Reference Range Interpretation Comments Group A Streptococcus Screen (test code = 86016-1) NEGATIVE NEG ATIVE [facility] CampusGroup A Streptococcus Bpnqpv3120-53-99 22:08:00* Test Item Value Reference Range Interpretation Comments Group A Streptococcus Screen (test code = 87029-0) NEGATIVE NEG ATIVE [facility] CampusGroup A Streptococcus Pqwhlv6951-27-80 22:08:00* Test Item Value Reference Range Interpretation Comments Group A Streptococcus Screen (test code = 78012-3) NEGATIVE NEG ATIVE [facility] CampusGroup A Streptococcus Rbbqen1457-96-67 22:08:00* Test Item Value Reference Range Interpretation Comments Group A Streptococcus Screen (test code = 55263-7) NEGATIVE NEG ATIVE [facility] CampusWhite Blood Bmzek5915-23-34 22:04:00* Test Item Value Reference Range Interpretation Comments White Blood Count (test code = 6690-2) 7.25 4.8-10.8 [facility] CampusRed Blood Nzlsd3528-43-70 22:04:00* Test Item Value Reference Range Interpretation Comments Red Blood Count (test code = 789-8) 5.01 3.6-5.1 [facility] CampusHemoglobin2019-09-05 22:04:00* Test Item Value Reference Range Interpretation Comments Hemoglobin (test code = 83487-0) 14.4 12.0-16.0 [facility] CampusHematocrit2019-09-05 22:04:00* Test Item Value Reference Range Interpretation Comments Hematocrit (test code = 4544-3) 41.1 34.2-44.1 [facility] CampusMean Corpuscular Ysdjxx9331-79-24 22:04:00* Test Item Value Reference Range Interpretation Comments Mean Corpuscular Volume (test code = 787-2) 82.0 81-99 [facility] CampusMean Corpuscular Vwisdmqjay0314-01-68 22:04:00* Test Item Value Reference Range Interpretation Comments Mean Corpuscular Hemoglobin (test code = 785-6) 28.7 28-32 [facility] CampusMean Corpuscular Hemoglobin Concent 2019-06-17 22:04:00* Test Item Value Reference Range Interpretation Comments Mean Corpuscular Hemoglobin Concent (test code = 786-4) 35.0 31-35 [facility] CampusRed Cell Distribution Wewhe6299-99-83 22:04:00* Test Item Value Reference Range Interpretation Comments Red Cell Distribution Width (test code = 53486-5) 11.8 11.7 -14.4 [facility] CampusPlatelet Qbaap0529-91-58 22:04:00* Test Item Value Reference Range Interpretation Comments Platelet Count (test code = 777-3) 194 140-360 [facility] CampusNeutrophils (%) (Auto)2019-06-17 22:04:00 * Test Item Value Reference Range Interpretation Comments Neutrophils (%) (Auto) (test code = 39849-1) 45.1 38.7-80.0 [facility] CampusLymphocytes (%) (Auto)2019-06-17 22:04:00 * Test Item Value Reference Range Interpretation Comments Lymphocytes (%) (Auto) (test code = 736-9) 47.2 18.0-39.1 H [facility] CampusMonocytes (%) (Auto)2019-06-17 22:04:00* Test Item Value Reference Range Interpretation Comments Monocytes (%) (Auto) (test code = 5905-5) 6.3 4.4-11.3 [facility] CampusEosinophils (%) (Auto)2019-06-17 22:04:00 * Test Item Value Reference Range Interpretation Comments Eosinophils (%) (Auto) (test code = 713-8) 0.7 0.0-6.0 [facility] CampusBasophils (%) (Auto)2019-06-17 22:04:00* Test Item Value Reference Range Interpretation Comments Basophils (%) (Auto) (test code = 706-2) 0.4 0.0-1.0 [facility] CampusIM GRANULOCYTES %2019-06-17 22:04:00* Test Item Value Reference Range Interpretation Comments IM GRANULOCYTES % (test code = IM GRANULOCYTES %) 0.3 0.0- 1.0 [facility] CampusNeutrophils # (Auto)2019-06-17 22:04:00* Test Item Value Reference Range Interpretation Comments Neutrophils # (Auto) (test code = 751-8) 3.3 2.1-6.9 [facility] CampusLymphocytes # (Auto)2019-06-17 22:04:00* Test Item Value Reference Range Interpretation Comments Lymphocytes # (Auto) (test code = 11533-1) 3.4 1.0-3.2 H [facility] CampusMonocytes # (Auto)2019-06-17 22:04:00* Test Item Value Reference Range Interpretation Comments Monocytes # (Auto) (test code = 742-7) 0.5 0.2-0.8 [facility] CampusEosinophils # (Auto)2019-06-17 22:04:00* Test Item Value Reference Range Interpretation Comments Eosinophils # (Auto) (test code = 711-2) 0.1 0.0-0.4 [facility] CampusBasophils # (Auto)2019-06-17 22:04:00* Test Item Value Reference Range Interpretation Comments Basophils # (Auto) (test code = 704-7) 0.0 0.0-0.1 [facility] CampusAbsolute Immature Granulocyte (auto 2019-06-17 22:04:00* Test Item Value Reference Range Interpretation Comments Absolute Immature Granulocyte (auto (chiquita t code = Absolute Immature Granulocyte (auto) 0.02 0-0.1 [facility] CampusWhite Blood Yadsp6881-13-24 22:04:00* Test Item Value Reference Range Interpretation Comments White Blood Count (test code = 6690-2) 7.25 4.8-10.8 [facility] CampusRed Blood Jegqq6668-68-67 22:04:00* Test Item Value Reference Range Interpretation Comments Red Blood Count (test code = 789-8) 5.01 3.6-5.1 [facility] CampusHemoglobin2019-09-05 22:04:00* Test Item Value Reference Range Interpretation Comments Hemoglobin (test code = 51412-6) 14.4 12.0-16.0 [facility] CampusHematocrit2019-09-05 22:04:00* Test Item Value Reference Range Interpretation Comments Hematocrit (test code = 4544-3) 41.1 34.2-44.1 [facility] CampusMean Corpuscular Zkxafg3488-00-06 22:04:00* Test Item Value Reference Range Interpretation Comments Mean Corpuscular Volume (test code = 787-2) 82.0 81-99 [facility] CampusMean Corpuscular Jbkconodwr8136-90-06 22:04:00* Test Item Value Reference Range Interpretation Comments Mean Corpuscular Hemoglobin (test code = 785-6) 28.7 28-32 [facility] CampusMean Corpuscular Hemoglobin Concent 2019-06-17 22:04:00* Test Item Value Reference Range Interpretation Comments Mean Corpuscular Hemoglobin Concent (test code = 786-4) 35.0 31-35 [facility] CampusRed Cell Distribution Tlhho5124-47-17 22:04:00* Test Item Value Reference Range Interpretation Comments Red Cell Distribution Width (test code = 74543-2) 11.8 11.7 -14.4 [facility] CampusPlatelet Omtjj1286-05-39 22:04:00* Test Item Value Reference Range Interpretation Comments Platelet Count (test code = 777-3) 194 140-360 [facility] CampusNeutrophils (%) (Auto)2019-06-17 22:04:00 * Test Item Value Reference Range Interpretation Comments Neutrophils (%) (Auto) (test code = 88139-3) 45.1 38.7-80.0 [facility] CampusLymphocytes (%) (Auto)2019-06-17 22:04:00 * Test Item Value Reference Range Interpretation Comments Lymphocytes (%) (Auto) (test code = 736-9) 47.2 18.0-39.1 H [facility] CampusMonocytes (%) (Auto)2019-06-17 22:04:00* Test Item Value Reference Range Interpretation Comments Monocytes (%) (Auto) (test code = 5905-5) 6.3 4.4-11.3 [facility] CampusEosinophils (%) (Auto)2019-06-17 22:04:00 * Test Item Value Reference Range Interpretation Comments Eosinophils (%) (Auto) (test code = 713-8) 0.7 0.0-6.0 [facility] CampusBasophils (%) (Auto)2019-06-17 22:04:00* Test Item Value Reference Range Interpretation Comments Basophils (%) (Auto) (test code = 706-2) 0.4 0.0-1.0 [facility] CampusIM GRANULOCYTES %2019-06-17 22:04:00* Test Item Value Reference Range Interpretation Comments IM GRANULOCYTES % (test code = IM GRANULOCYTES %) 0.3 0.0- 1.0 [facility] CampusNeutrophils # (Auto)2019-06-17 22:04:00* Test Item Value Reference Range Interpretation Comments Neutrophils # (Auto) (test code = 751-8) 3.3 2.1-6.9 [facility] CampusLymphocytes # (Auto)2019-06-17 22:04:00* Test Item Value Reference Range Interpretation Comments Lymphocytes # (Auto) (test code = 66836-2) 3.4 1.0-3.2 H [facility] # (Auto)2019-06-17 22:04:00* Test Item Value Reference Range Interpretation Comments Monocytes # (Auto) (test code = 742-7) 0.5 0.2-0.8 [facility]osin[facility] # (Auto)2019-06-17 22:04:00* Test Item Value Reference Range Interpretation Comments Eosinophils # (Auto) (test code = 711-2) 0.1 0.0-0.4 [facility] # (Auto)2019-06-17 22:04:00* Test Item Value Reference Range Interpretation Comments Basophils # (Auto) (test code = 704-7) 0.0 0.0-0.1 [facility] Immature Granulocyte (auto 2019-06-17 22:04:00* Test Item Value Reference Range Interpretation Comments Absolute Immature Granulocyte (auto (chiquita t code = Absolute Immature Granulocyte (auto) 0.02 0-0.1 [facility]CHEST 2 [id number] 21:18:00 [place] [address] Patient Name: YOLETTE URIBE MR #: [id number] : 1975 Age/Sex: 43/F Req #: [id number] Adm Physician: Ordered by: BEVERLY MARTELL 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 LUNGS: Lungs are well inflated. There is no evidence of pneumo shaw or pulmonary edema. PLEURA: No pleural effusion or pneumothorax. HEART AND MEDIASTINUM: The cardiomediastinal silhouette is unremarkable.. BONES AND SOFT TISSUES: No focal osseous lesions. Soft tissues are unre markable. UPPER ABDOMEN: No free air under the diaphragm. IMPRESSION: No acute thoracic abnormality. Signed by: Dr. Lilliam Boles MD on 06/17/2019 9:19 PM Dictated By: LILLIAM BOLES MD Electronically Sig nciki By: LILLIAM BOLES MD on 06/17/192118 Transcribed By: JEMAL on 2118 COPY TO: BEVERLY MARTELL RETURN TO SERVICE INSPECTOR Urine [id number] 20:09:00* Test Item Value Reference Range Interpretation Comments Urine WBC (test code = 5821-4) 0-5 0-5 [facility] [id number] 20:09:00* Test Item Value Reference Range Interpretation Comments Urine RBC (test code = 83298-1) NONE 0-5 [facility] Lutxxgvz3252-58-76 20:09:00* Test Item Value Reference Range Interpretation Comments Urine Bacteria (test code = 36812-0) RARE NONE [facility] Epithelial Hagpe5925-02-40 20:09:00 * Test Item Value Reference Range Interpretation Comments Urine Epithelial Cells (test code = 63187-1) FEW NONE [facility] FEE1628-18-46 20:09:00* Test Item Value Reference Range Interpretation Comments Urine WBC (test code = 5821-4) 0-5 0-5 [facility] [id number] 20:09:00* Test Item Value Reference Range Interpretation Comments Urine RBC (test code = 09835-7) NONE 0-5 [facility] Eyujnedw8972-64-97 20:09:00* Test Item Value Reference Range Interpretation Comments Urine Bacteria (test code = 52382-1) RARE NONE [facility] Epithelial Ldcwu2169-93-51 20:09:00 * Test Item Value Reference Range Interpretation Comments Urine Epithelial Cells (test code = 06238-4) FEW NONE [facility] [id number] 20:09:00* Test Item Value Reference Range Interpretation Comments Urine WBC (test code = 5821-4) 0-5 0-5 [facility] HCV3667-70-42 20:09:00* Test Item Value Reference Range Interpretation Comments Urine RBC (test code = 21719-3) NONE 0-5 [facility] Uczlncko5469-44-40 20:09:00* Test Item Value Reference Range Interpretation Comments Urine Bacteria (test code = 83318-1) RARE NONE [facility] Epithelial Hxcbp4003-89-44 20:09:00 * Test Item Value Reference Range Interpretation Comments Urine Epithelial Cells (test code = 99276-7) FEW NONE [facility] [id number] 20:09:00* Test Item Value Reference Range Interpretation Comments Urine WBC (test code = 5821-4) 0-5 0-5 [facility] [id number] 20:09:00* Test Item Value Reference Range Interpretation Comments Urine RBC (test code = 28020-0) NONE 0-5 [facility] Bljmhmee3200-15-21 20:09:00* Test Item Value Reference Range Interpretation Comments Urine Bacteria (test code = 87219-4) RARE NONE [facility] Epithelial Xzpdu3620-55-93 20:09:00 * Test Item Value Reference Range Interpretation Comments Urine Epithelial Cells (test code = 25250-6) FEW NONE [facility] [id number] 20:09:00* Test Item Value Reference Range Interpretation Comments Urine WBC (test code = 5821-4) 0-5 0-5 [facility] JPX6220-94-10 20:09:00* Test Item Value Reference Range Interpretation Comments Urine RBC (test code = 09719-7) NONE 0-5 [facility] Ajzuynus4275-45-89 20:09:00* Test Item Value Reference Range Interpretation Comments Urine Bacteria (test code = 75879-5) RARE NONE [facility] Epithelial Xbxfr7435-72-33 20:09:00 * Test Item Value Reference Range Interpretation Comments Urine Epithelial Cells (test code = 85299-9) FEW NONE [facility] GYP7186-62-06 20:09:00* Test Item Value Reference Range Interpretation Comments Urine WBC (test code = 5821-4) 0-5 0-5 [facility] [id number] 20:09:00* Test Item Value Reference Range Interpretation Comments Urine RBC (test code = 32919-2) NONE 0-5 [facility] Vpdnqmta0893-65-01 20:09:00* Test Item Value Reference Range Interpretation Comments Urine Bacteria (test code = 69765-1) RARE NONE [facility] Epithelial Dvsds7944-69-57 20:09:00 * Test Item Value Reference Range Interpretation Comments Urine Epithelial Cells (test code = 58024-6) FEW NONE [facility] [id number] 20:09:00* Test Item Value Reference Range Interpretation Comments Urine WBC (test code = 5821-4) 0-5 0-5 [facility] GWD2404-21-28 20:09:00* Test Item Value Reference Range Interpretation Comments Urine RBC (test code = 07148-3) NONE 0-5 [facility] Dycmejuj4931-67-62 20:09:00* Test Item Value Reference Range Interpretation Comments Urine Bacteria (test code = 84214-0) RARE NONE [facility] Epithelial Akhpv4143-30-79 20:09:00 * Test Item Value Reference Range Interpretation Comments Urine Epithelial Cells (test code = 31509-6) FEW NONE [facility] Ungt1253-01-49 19:57:00* Test Item Value Reference Range Interpretation Comments Urine Test (test code = 2106-3) NEGATIVE NEGATIVE [facility] Osjd8095-56-02 19:57:00* Test Item Value Reference Range Interpretation Comments Urine Test (test code = 2106-3) NEGATIVE NEGATIVE [facility] Yfwl0483-63-94 19:57:00* Test Item Value Reference Range Interpretation Comments Urine Test (test code = 2106-3) NEGATIVE NEGATIVE [facility] Jpand2326-17-12 19:56:00* Test Item Value Reference Range Interpretation Comments Urine Color (test code = 5778-6) YELLOW YELLOW [facility] Pyujfwr4960-59-49 19:56:00* Test Item Value Reference Range Interpretation Comments Urine Clarity (test code = 87792-8) CLEAR CLEAR [facility] Specific Nkljxmx0749-58-13 19:56:00 * Test Item Value Reference Range Interpretation Comments Urine Specific [place] (test code = 5811-5) <=1.005 1.010-1.02 5 [facility] [id number] 19:56:00* Test Item Value Reference Range Interpretation Comments Urine pH (test code = 71497-7) 6 5-7 [facility] Leukocyte Bepakwsq9637-35-58 19:56:00* Test Item Value Reference Range Interpretation Comments Urine Leukocyte Esterase (test code = 39670-7) NEGATIVE NEGATIV E [facility] Vfokglh7948-94-63 19:56:00* Test Item Value Reference Range Interpretation Comments Urine Nitrite (test code = 93373-8) NEGATIVE NEGATIVE [facility] Gombaee3222-52-79 19:56:00* Test Item Value Reference Range Interpretation Comments Urine Protein (test code = 77348-5) NEGATIVE NEGATIVE [facility] Glucose (UA)2019-06-17 19:56:00* Test Item Value Reference Range Interpretation Comments Urine Glucose (UA) (test code = 73338-9) 3+ NEGATIVE [facility] Cxtuyph2494-17-10 19:56:00* Test Item Value Reference Range Interpretation Comments Urine Ketones (test code = 79631-0) NEGATIVE NEGATIVE [facility] Jlwusxdqhroc0296-67-34 19:56:00* Test Item Value Reference Range Interpretation Comments Urine Urobilinogen (test code = 78585-3) 0.2 0.2-1 [facility] Pakkhmigt2461-33-68 19:56:00* Test Item Value Reference Range Interpretation Comments Urine Bilirubin (test code = 1977-8) NEGATIVE NEGATIVE [facility] Wqzqa8688-87-21 19:56:00* Test Item Value Reference Range Interpretation Comments Urine Blood (test code = 14171-0) NEGATIVE NEGATIVE [facility] Zzsem4904-29-55 19:56:00* Test Item Value Reference Range Interpretation Comments Urine Color (test code = 5778-6) YELLOW YELLOW [facility] Zkptqsv4914-40-42 19:56:00* Test Item Value Reference Range Interpretation Comments Urine Clarity (test code = 16165-6) CLEAR CLEAR [facility] Specific Zgxewty5932-29-05 19:56:00 * Test Item Value Reference Range Interpretation Comments Urine Specific [place] (test code = 5811-5) <=1.005 1.010-1.02 5 [facility] iO0339-34-51 19:56:00* Test Item Value Reference Range Interpretation Comments Urine pH (test code = 11937-5) 6 5-7 [facility] Leukocyte Cssbrldg8276-22-05 19:56:00* Test Item Value Reference Range Interpretation Comments Urine Leukocyte Esterase (test code = 68233-3) NEGATIVE NEGATIV E [facility] Ibduomj4407-06-22 19:56:00* Test Item Value Reference Range Interpretation Comments Urine Nitrite (test code = 30955-4) NEGATIVE NEGATIVE [facility] Kumoyre3135-23-20 19:56:00* Test Item Value Reference Range Interpretation Comments Urine Protein (test code = 43378-4) NEGATIVE NEGATIVE [facility] Glucose (UA)2019-06-17 19:56:00* Test Item Value Reference Range Interpretation Comments Urine Glucose (UA) (test code = 26423-2) 3+ NEGATIVE [facility] Hqbofkg1451-13-51 19:56:00* Test Item Value Reference Range Interpretation Comments Urine Ketones (test code = 32076-3) NEGATIVE NEGATIVE [facility] Zgzwxytxsrwe6783-01-61 19:56:00* Test Item Value Reference Range Interpretation Comments Urine Urobilinogen (test code = 76253-1) 0.2 0.2-1 [facility] Fbfpcpohj3924-68-32 19:56:00* Test Item Value Reference Range Interpretation Comments Urine Bilirubin (test code = 1977-8) NEGATIVE NEGATIVE [facility] Itxas8097-38-84 19:56:00* Test Item Value Reference Range Interpretation Comments Urine Blood (test code = 50229-1) NEGATIVE NEGATIVE [facility] Acocb3455-12-77 19:56:00* Test Item Value Reference Range Interpretation Comments Urine Color (test code = 5778-6) YELLOW YELLOW [facility] Qxbefsd4051-37-39 19:56:00* Test Item Value Reference Range Interpretation Comments Urine Clarity (test code = 39584-2) CLEAR CLEAR [facility] Specific Pvvxsqe6384-91-35 19:56:00 * Test Item Value Reference Range Interpretation Comments Urine Specific [place] (test code = 5811-5) <=1.005 1.010-1.02 5 [facility] lK0244-85-30 19:56:00* Test Item Value Reference Range Interpretation Comments Urine pH (test code = 72477-0) 6 5-7 [facility] Leukocyte Sryfcjgv9298-03-55 19:56:00* Test Item Value Reference Range Interpretation Comments Urine Leukocyte Esterase (test code = 36308-5) NEGATIVE NEGATIV E [facility] Xizidyd7185-82-17 19:56:00* Test Item Value Reference Range Interpretation Comments Urine Nitrite (test code = 98112-9) NEGATIVE NEGATIVE [facility] Dpdnpae0773-17-46 19:56:00* Test Item Value Reference Range Interpretation Comments Urine Protein (test code = 75553-1) NEGATIVE NEGATIVE [facility] Glucose (UA)2019-06-17 19:56:00* Test Item Value Reference Range Interpretation Comments Urine Glucose (UA) (test code = 06523-1) 3+ NEGATIVE [facility] Uohlnml5094-98-91 19:56:00* Test Item Value Reference Range Interpretation Comments Urine Ketones (test code = 56297-8) NEGATIVE NEGATIVE [facility] Pbejsaikmvjw9744-75-45 19:56:00* Test Item Value Reference Range Interpretation Comments Urine Urobilinogen (test code = 73435-8) 0.2 0.2-1 [facility] Mjrdwrvqh6320-25-10 19:56:00* Test Item Value Reference Range Interpretation Comments Urine Bilirubin (test code = 1977-8) NEGATIVE NEGATIVE [facility] Rulli5414-72-66 19:56:00* Test Item Value Reference Range Interpretation Comments Urine Blood (test code = 44422-9) NEGATIVE NEGATIVE [facility] Hsaly9622-25-87 19:56:00* Test Item Value Reference Range Interpretation Comments Urine Color (test code = 5778-6) YELLOW YELLOW [facility] Iavayva8486-42-46 19:56:00* Test Item Value Reference Range Interpretation Comments Urine Clarity (test code = 65569-9) CLEAR CLEAR [facility] Specific Jzmubat0152-92-01 19:56:00 * Test Item Value Reference Range Interpretation Comments Urine Specific [place] (test code = 5811-5) <=1.005 1.010-1.02 5 [facility] sJ2380-86-85 19:56:00* Test Item Value Reference Range Interpretation Comments Urine pH (test code = 55220-1) 6 5-7 [facility] Leukocyte Zirdloka5856-18-10 19:56:00* Test Item Value Reference Range Interpretation Comments Urine Leukocyte Esterase (test code = 38180-0) NEGATIVE NEGATIV E [facility] Zrnathz7016-26-03 19:56:00* Test Item Value Reference Range Interpretation Comments Urine Nitrite (test code = 18391-2) NEGATIVE NEGATIVE [facility] Oiyeqsr7983-80-73 19:56:00* Test Item Value Reference Range Interpretation Comments Urine Protein (test code = 48520-4) NEGATIVE NEGATIVE [facility] Glucose (UA)2019-06-17 19:56:00* Test Item Value Reference Range Interpretation Comments Urine Glucose (UA) (test code = 45854-6) 3+ NEGATIVE [facility] Fumbbim6049-14-77 19:56:00* Test Item Value Reference Range Interpretation Comments Urine Ketones (test code = 64533-2) NEGATIVE NEGATIVE [facility] Dtcjqidoygro0880-01-60 19:56:00* Test Item Value Reference Range Interpretation Comments Urine Urobilinogen (test code = 61229-2) 0.2 0.2-1 [facility] Hlsmjecxs3159-86-99 19:56:00* Test Item Value Reference Range Interpretation Comments Urine Bilirubin (test code = 1977-8) NEGATIVE NEGATIVE [facility] Zhole0987-67-88 19:56:00* Test Item Value Reference Range Interpretation Comments Urine Blood (test code = 88720-8) NEGATIVE NEGATIVE [facility] Uvgjl7996-22-98 19:56:00* Test Item Value Reference Range Interpretation Comments Urine Color (test code = 5778-6) YELLOW YELLOW [facility] Fhctalu4065-71-96 19:56:00* Test Item Value Reference Range Interpretation Comments Urine Clarity (test code = 95905-2) CLEAR CLEAR [facility] Specific Ptxutku0242-21-73 19:56:00 * Test Item Value Reference Range Interpretation Comments Urine Specific [place] (test code = 5811-5) <=1.005 1.010-1.02 5 [facility] dH5848-91-13 19:56:00* Test Item Value Reference Range Interpretation Comments Urine pH (test code = 49977-2) 6 5-7 [facility] Leukocyte Dhfdcljo6967-30-73 19:56:00* Test Item Value Reference Range Interpretation Comments Urine Leukocyte Esterase (test code = 61318-8) NEGATIVE NEGATIV E [facility] Pboqpfx8584-43-91 19:56:00* Test Item Value Reference Range Interpretation Comments Urine Nitrite (test code = 60533-1) NEGATIVE NEGATIVE [facility] Cutwmsz6135-89-97 19:56:00* Test Item Value Reference Range Interpretation Comments Urine Protein (test code = 39762-1) NEGATIVE NEGATIVE [facility] Glucose (UA)2019-06-17 19:56:00* Test Item Value Reference Range Interpretation Comments Urine Glucose (UA) (test code = 41317-4) 3+ NEGATIVE [facility] Cfwbcag6130-41-97 19:56:00* Test Item Value Reference Range Interpretation Comments Urine Ketones (test code = 29875-5) NEGATIVE NEGATIVE [facility] Caqiphtqttai9367-26-00 19:56:00* Test Item Value Reference Range Interpretation Comments Urine Urobilinogen (test code = 74472-2) 0.2 0.2-1 [facility] Bhguiahrb9134-67-21 19:56:00* Test Item Value Reference Range Interpretation Comments Urine Bilirubin (test code = 1977-8) NEGATIVE NEGATIVE [facility] Seoly8886-72-99 19:56:00* Test Item Value Reference Range Interpretation Comments Urine Blood (test code = 68678-0) NEGATIVE NEGATIVE [facility] Mtvlm8127-25-89 19:56:00* Test Item Value Reference Range Interpretation Comments Urine Color (test code = 5778-6) YELLOW YELLOW [facility] Cjlzrwo2761-73-99 19:56:00* Test Item Value Reference Range Interpretation Comments Urine Clarity (test code = 85048-0) CLEAR CLEAR [facility] Specific Efnrlwn2987-76-03 19:56:00 * Test Item Value Reference Range Interpretation Comments Urine Specific [place] (test code = 5811-5) <=1.005 1.010-1.02 5 [facility] gQ4640-85-39 19:56:00* Test Item Value Reference Range Interpretation Comments Urine pH (test code = 91252-2) 6 5-7 [facility] Leukocyte Lnmuyjvx5628-35-87 19:56:00* Test Item Value Reference Range Interpretation Comments Urine Leukocyte Esterase (test code = 15322-7) NEGATIVE NEGATIV E [facility] Dxhbtmx6237-06-60 19:56:00* Test Item Value Reference Range Interpretation Comments Urine Nitrite (test code = 19387-2) NEGATIVE NEGATIVE [facility] Pxpymru6611-08-06 19:56:00* Test Item Value Reference Range Interpretation Comments Urine Protein (test code = 22028-7) NEGATIVE NEGATIVE [facility] Glucose (UA)2019-06-17 19:56:00* Test Item Value Reference Range Interpretation Comments Urine Glucose (UA) (test code = 85150-2) 3+ NEGATIVE [facility] Tzqzbhi1607-25-44 19:56:00* Test Item Value Reference Range Interpretation Comments Urine Ketones (test code = 72616-5) NEGATIVE NEGATIVE [facility] Qsaeqdstxoiv2813-32-47 19:56:00* Test Item Value Reference Range Interpretation Comments Urine Urobilinogen (test code = 63105-1) 0.2 0.2-1 [facility] Btcurvlxs1172-56-98 19:56:00* Test Item Value Reference Range Interpretation Comments Urine Bilirubin (test code = 1977-8) NEGATIVE NEGATIVE [facility] Kfbxr5017-54-10 19:56:00* Test Item Value Reference Range Interpretation Comments Urine Blood (test code = 96858-0) NEGATIVE NEGATIVE [facility] Ceoge2284-76-89 19:56:00* Test Item Value Reference Range Interpretation Comments Urine Color (test code = 5778-6) YELLOW YELLOW [facility] Ooipyew5259-94-16 19:56:00* Test Item Value Reference Range Interpretation Comments Urine Clarity (test code = 09083-5) CLEAR CLEAR [facility] Specific Oxqfpsc5328-19-18 19:56:00 * Test Item Value Reference Range Interpretation Comments Urine Specific [place] (test code = 5811-5) <=1.005 1.010-1.02 5 [facility] sU4867-42-76 19:56:00* Test Item Value Reference Range Interpretation Comments Urine pH (test code = 42065-8) 6 5-7 [facility] Leukocyte Czseoqpo6345-82-40 19:56:00* Test Item Value Reference Range Interpretation Comments Urine Leukocyte Esterase (test code = 29096-2) NEGATIVE NEGATIV E [facility] Dmdaeba1513-07-21 19:56:00* Test Item Value Reference Range Interpretation Comments Urine Nitrite (test code = 37388-9) NEGATIVE NEGATIVE [facility] Zpmofub4685-26-74 19:56:00* Test Item Value Reference Range Interpretation Comments Urine Protein (test code = 66902-6) NEGATIVE NEGATIVE [facility] Glucose (UA)2019-06-17 19:56:00* Test Item Value Reference Range Interpretation Comments Urine Glucose (UA) (test code = 86573-7) 3+ NEGATIVE [facility] Vcdufbe6431-29-10 19:56:00* Test Item Value Reference Range Interpretation Comments Urine Ketones (test code = 75900-9) NEGATIVE NEGATIVE [facility] Rmirlmfdcnuw5920-24-86 19:56:00* Test Item Value Reference Range Interpretation Comments Urine Urobilinogen (test code = 45281-0) 0.2 0.2-1 [facility] Rimsaayhn3224-21-69 19:56:00* Test Item Value Reference Range Interpretation Comments Urine Bilirubin (test code = 1977-8) NEGATIVE NEGATIVE [facility] Dkjck1298-84-41 19:56:00* Test Item Value Reference Range Interpretation Comments Urine Blood (test code = 77238-3) NEGATIVE NEGATIVE [facility] METABOLIC KCNCS4876-61-28 15:17:00 * Test Item Value Reference Range Interpretation Comments SODIUM (test code = NA) 126 mmol/L 136-145 L POTASSIUM (test code = K) 3.8 mmol/L 3.5-5.1 N CHLORIDE (test code = CL) 91.0 mmol/L 98-107 L CARBON DIOXIDE (test code = CO2) 24.0 mmol/L 21-32 N ANION GAP (test code = GAP) 14.8 10-20 N GLUCOSE (test code = GLU) 849 mg/dL 74-106 Re ritu called to [facility]/FYF8215kc [facility] [facility] 06[facility]19 1456Critical results verified and read back by Nurse? Y BLOOD UREA NITROGEN (test code = BUN) 10 mg/dL 7-18 N GLOMERULAR FILTRATION RATE (test code = GFR) 49 mL/min >=60 Estimated GFR by using Modified MDRD formula.Chronic kidney disease is defined as either kidney damageor GFR <60 mL/min/1.73 m2 for >3 months. CREATININE (test code = CREAT) 1.20 mg/dL 0.55-1.02 H Note change in reference range due to change in reagent. BUN/CREATININE RATIO (test code = BUN/CREA) 8.7 10-20 L CALCIUM (test code = CA) 9.3 mg/dL 8.5-10.1 N HEPATIC FUNCTION [id number] 15:17:00* Test Item Value Reference Range Interpretation Comments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 Interpretation Comments Lymphocytes (%) (Auto) (test code = 736-9) 30.3 18.0-39.1 [facility] CampusMonocytes (%) (Auto)2018-03-18 09:34:00* Test Item Value Reference Range Interpretation Comments Monocytes (%) (Auto) (test code = 5905-5) 6.6 4.4-11.3 [facility] CampusEosinophils (%) (Auto)2018-03-18 09:34:00 * Test Item Value Reference Range Interpretation Comments Eosinophils (%) (Auto) (test code = 713-8) 0.2 0.0-6.0 [facility] CampusBasophils (%) (Auto)2018-03-18 09:34:00* Test Item Value Reference Range Interpretation Comments Basophils (%) (Auto) (test code = 706-2) 0.3 0.0-1.0 [facility] CampusIM GRANULOCYTES %2018-03-18 09:34:00* Test Item Value Reference Range Interpretation Comments IM GRANULOCYTES % (test code = IM GRANULOCYTES %) 0.2 0.0- 1.0 [facility] CampusNeutrophils # (Auto)2018-03-18 09:34:00* Test Item Value Reference Range Interpretation Comments Neutrophils # (Auto) (test code = 751-8) 4.0 2.1-6.9 [facility] CampusLymphocytes # (Auto)2018-03-18 09:34:00* Test Item Value Reference Range Interpretation Comments Lymphocytes # (Auto) (test code = 00602-6) 1.9 1.0-3.2 [facility] CampusMonocytes # (Auto)2018-03-18 09:34:00* Test Item Value Reference Range Interpretation Comments Monocytes # (Auto) (test code = 742-7) 0.4 0.2-0.8 [facility] CampusEosinophils # (Auto)2018-03-18 09:34:00* Test Item Value Reference Range Interpretation Comments Eosinophils # (Auto) (test code = 711-2) 0.0 0.0-0.4 [facility] CampusBasophils # (Auto)2018-03-18 09:34:00* Test Item Value Reference Range Interpretation Comments Basophils # (Auto) (test code = 704-7) 0.0 0.0-0.1 [facility] CampusAbsolute Immature Granulocyte (auto 2018-03-18 09:34:00* Test Item Value Reference Range Interpretation Comments Absolute Immature Granulocyte (auto (chiquita t code = Absolute Immature Granulocyte (auto) 0.01 0-0.1 [facility] CampusWhite Blood Lvgoo3532-47-01 09:34:00* Test Item Value Reference Range Interpretation Comments White Blood Count (test code = 6690-2) 6.36 4.8-10.8 [facility] CampusRed Blood Rpkzb0927-18-84 09:34:00* Test Item Value Reference Range Interpretation Comments Red Blood Count (test code = 789-8) 3.86 3.6-5.1 [facility] CampusHemoglobin2018-06-06 09:34:00* Test Item Value Reference Range Interpretation Comments Hemoglobin (test code = 15385-4) 11.5 12.0-16.0 L [facility] CampusHematocrit2018-06-06 09:34:00* Test Item Value Reference Range Interpretation Comments Hematocrit (test code = 4544-3) 33.4 34.2-44.1 L [facility] CampusMean Corpuscular Pdlpls3351-04-76 09:34:00* Test Item Value Reference Range Interpretation Comments Mean Corpuscular Volume (test code = 787-2) 86.5 81-99 [facility] CampusMean Corpuscular Faqjknghis6910-02-86 09:34:00* Test Item Value Reference Range Interpretation Comments Mean Corpuscular Hemoglobin (test code = 785-6) 29.8 28-32 [facility] CampusMean Corpuscular Hemoglobin Concent 2018-03-18 09:34:00* Test Item Value Reference Range Interpretation Comments Mean Corpuscular Hemoglobin Concent (test code = 786-4) 34.4 31-35 [facility] CampusRed Cell Distribution Nojiz9821-69-58 09:34:00* Test Item Value Reference Range Interpretation Comments Red Cell Distribution Width (test code = 45236-4) 12.4 11.7 -14.4 [facility] CampusPlatelet Hzunb1273-91-19 09:34:00* Test Item Value Reference Range Interpretation Comments Platelet Count (test code = 777-3) 205 140-360 [facility] CampusNeutrophils (%) (Auto)2018-03-18 09:34:00 * Test Item Value Reference Range Interpretation Comments Neutrophils (%) (Auto) (test code = 61136-4) 62.4 38.7-80.0 [facility] CampusLymphocytes (%) (Auto)2018-03-18 09:34:00 * Test Item Value Reference Range Interpretation Comments Lymphocytes (%) (Auto) (test code = 736-9) 30.3 18.0-39.1 [facility] CampusMonocytes (%) (Auto)2018-03-18 09:34:00* Test Item Value Reference Range Interpretation Comments Monocytes (%) (Auto) (test code = 5905-5) 6.6 4.4-11.3 [facility] CampusEosinophils (%) (Auto)2018-03-18 09:34:00 * Test Item Value Reference Range Interpretation Comments Eosinophils (%) (Auto) (test code = 713-8) 0.2 0.0-6.0 [facility] CampusBasophils (%) (Auto)2018-03-18 09:34:00* Test Item Value Reference Range Interpretation Comments Basophils (%) (Auto) (test code = 706-2) 0.3 0.0-1.0 [facility] CampusIM GRANULOCYTES %2018-03-18 09:34:00* Test Item Value Reference Range Interpretation Comments IM GRANULOCYTES % (test code = IM GRANULOCYTES %) 0.2 0.0- 1.0 [facility] CampusNeutrophils # (Auto)2018-03-18 09:34:00* Test Item Value Reference Range Interpretation Comments Neutrophils # (Auto) (test code = 751-8) 4.0 2.1-6.9 [facility] CampusLymphocytes # (Auto)2018-03-18 09:34:00* Test Item Value Reference Range Interpretation Comments Lymphocytes # (Auto) (test code = 29494-3) 1.9 1.0-3.2 [facility] CampusMonocytes # (Auto)2018-03-18 09:34:00* Test Item Value Reference Range Interpretation Comments Monocytes # (Auto) (test code = 742-7) 0.4 0.2-0.8 [facility] CampusEosinophils # (Auto)2018-03-18 09:34:00* Test Item Value Reference Range Interpretation Comments Eosinophils # (Auto) (test code = 711-2) 0.0 0.0-0.4 [facility] CampusBasophils # (Auto)2018-03-18 09:34:00* Test Item Value Reference Range Interpretation Comments Basophils # (Auto) (test code = 704-7) 0.0 0.0-0.1 [facility] CampusAbsolute Immature Granulocyte (auto 2018-03-18 09:34:00* Test Item Value Reference Range Interpretation Comments Absolute Immature Granulocyte (auto (chiquita t code = Absolute Immature Granulocyte (auto) 0.01 0-0.1 [facility] CampusWhite Blood Rdcqw6511-19-91 09:34:00* Test Item Value Reference Range Interpretation Comments White Blood Count (test code = 6690-2) 6.36 4.8-10.8 [facility] CampusRed Blood Ixbel3711-13-27 09:34:00* Test Item Value Reference Range Interpretation Comments Red Blood Count (test code = 789-8) 3.86 3.6-5.1 [facility] CampusHemoglobin2018-06-06 09:34:00* Test Item Value Reference Range Interpretation Comments Hemoglobin (test code = 35094-9) 11.5 12.0-16.0 L [facility] CampusHematocrit2018-06-06 09:34:00* Test Item Value Reference Range Interpretation Comments Hematocrit (test code = 4544-3) 33.4 34.2-44.1 L [facility] CampusMean Corpuscular Wylnoe9403-12-57 09:34:00* Test Item Value Reference Range Interpretation Comments Mean Corpuscular Volume (test code = 787-2) 86.5 81-99 [facility] CampusMean Corpuscular Znxsbdohia3058-24-27 09:34:00* Test Item Value Reference Range Interpretation Comments Mean Corpuscular Hemoglobin (test code = 785-6) 29.8 28-32 [facility] CampusMean Corpuscular Hemoglobin Concent 2018-03-18 09:34:00* Test Item Value Reference Range Interpretation Comments Mean Corpuscular Hemoglobin Concent (test code = 786-4) 34.4 31-35 [facility] CampusRed Cell Distribution Itosw4759-96-52 09:34:00* Test Item Value Reference Range Interpretation Comments Red Cell Distribution Width (test code = 05069-1) 12.4 11.7 -14.4 [facility] CampusPlatelet Clnyt9268-44-56 09:34:00* Test Item Value Reference Range Interpretation Comments Platelet Count (test code = 777-3) 205 140-360 [facility] CampusNeutrophils (%) (Auto)2018-03-18 09:34:00 * Test Item Value Reference Range Interpretation Comments Neutrophils (%) (Auto) (test code = 95680-3) 62.4 38.7-80.0 [facility] CampusLymphocytes (%) (Auto)2018-03-18 09:34:00 * Test Item Value Reference Range Interpretation Comments Lymphocytes (%) (Auto) (test code = 736-9) 30.3 18.0-39.1 [facility] CampusMonocytes (%) (Auto)2018-03-18 09:34:00* Test Item Value Reference Range Interpretation Comments Monocytes (%) (Auto) (test code = 5905-5) 6.6 4.4-11.3 [facility] CampusEosinophils (%) (Auto)2018-03-18 09:34:00 * Test Item Value Reference Range Interpretation Comments Eosinophils (%) (Auto) (test code = 713-8) 0.2 0.0-6.0 [facility] CampusBasophils (%) (Auto)2018-03-18 09:34:00* Test Item Value Reference Range Interpretation Comments Basophils (%) (Auto) (test code = 706-2) 0.3 0.0-1.0 [facility] CampusIM GRANULOCYTES %2018-03-18 09:34:00* Test Item Value Reference Range Interpretation Comments IM GRANULOCYTES % (test code = IM GRANULOCYTES %) 0.2 0.0- 1.0 [facility] CampusNeutrophils # (Auto)2018-03-18 09:34:00* Test Item Value Reference Range Interpretation Comments Neutrophils # (Auto) (test code = 751-8) 4.0 2.1-6.9 [facility] CampusLymphocytes # (Auto)2018-03-18 09:34:00* Test Item Value Reference Range Interpretation Comments Lymphocytes # (Auto) (test code = 34333-3) 1.9 1.0-3.2 [facility] CampusMonocytes # (Auto)2018-03-18 09:34:00* Test Item Value Reference Range Interpretation Comments Monocytes # (Auto) (test code = 742-7) 0.4 0.2-0.8 [facility] CampusEosinophils # (Auto)2018-03-18 09:34:00* Test Item Value Reference Range Interpretation Comments Eosinophils # (Auto) (test code = 711-2) 0.0 0.0-0.4 [facility] CampusBasophils # (Auto)2018-03-18 09:34:00* Test Item Value Reference Range Interpretation Comments Basophils # (Auto) (test code = 704-7) 0.0 0.0-0.1 [facility] CampusAbsolute Immature Granulocyte (auto 2018-03-18 09:34:00* Test Item Value Reference Range Interpretation Comments Absolute Immature Granulocyte (auto (chiquita t code = Absolute Immature Granulocyte (auto) 0.01 0-0.1 [facility] CampusWhite Blood Gpjah5795-15-48 09:34:00* Test Item Value Reference Range Interpretation Comments White Blood Count (test code = 6690-2) 6.36 4.8-10.8 [facility] CampusRed Blood Tbsro3705-05-19 09:34:00* Test Item Value Reference Range Interpretation Comments Red Blood Count (test code = 789-8) 3.86 3.6-5.1 [facility] CampusHemoglobin2018-06-06 09:34:00* Test Item Value Reference Range Interpretation Comments Hemoglobin (test code = 55004-3) 11.5 12.0-16.0 L [facility] CampusHematocrit2018-06-06 09:34:00* Test Item Value Reference Range Interpretation Comments Hematocrit (test code = 4544-3) 33.4 34.2-44.1 L [facility] CampusMean Corpuscular Wpwita7357-00-74 09:34:00* Test Item Value Reference Range Interpretation Comments Mean Corpuscular Volume (test code = 787-2) 86.5 81-99 [facility] CampusMean Corpuscular Dbtuucpmdw6861-56-85 09:34:00* Test Item Value Reference Range Interpretation Comments Mean Corpuscular Hemoglobin (test code = 785-6) 29.8 28-32 [facility] CampusMean Corpuscular Hemoglobin Concent 2018-03-18 09:34:00* Test Item Value Reference Range Interpretation Comments Mean Corpuscular Hemoglobin Concent (test code = 786-4) 34.4 31-35 [facility] CampusRed Cell Distribution Nsadz7403-54-93 09:34:00* Test Item Value Reference Range Interpretation Comments Red Cell Distribution Width (test code = 20620-5) 12.4 11.7 -14.4 [facility] CampusPlatelet Bfoop4027-29-14 09:34:00* Test Item Value Reference Range Interpretation Comments Platelet Count (test code = 777-3) 205 140-360 [facility] CampusNeutrophils (%) (Auto)2018-03-18 09:34:00 * Test Item Value Reference Range Interpretation Comments Neutrophils (%) (Auto) (test code = 43344-0) 62.4 38.7-80.0 [facility] CampusLymphocytes (%) (Auto)2018-03-18 09:34:00 * Test Item Value Reference Range Interpretation Comments Lymphocytes (%) (Auto) (test code = 736-9) 30.3 18.0-39.1 [facility] CampusMonocytes (%) (Auto)2018-03-18 09:34:00* Test Item Value Reference Range Interpretation Comments Monocytes (%) (Auto) (test code = 5905-5) 6.6 4.4-11.3 [facility] CampusEosinophils (%) (Auto)2018-03-18 09:34:00 * Test Item Value Reference Range Interpretation Comments Eosinophils (%) (Auto) (test code = 713-8) 0.2 0.0-6.0 [facility] CampusBasophils (%) (Auto)2018-03-18 09:34:00* Test Item Value Reference Range Interpretation Comments Basophils (%) (Auto) (test code = 706-2) 0.3 0.0-1.0 [facility] CampusIM GRANULOCYTES %2018-03-18 09:34:00* Test Item Value Reference Range Interpretation Comments IM GRANULOCYTES % (test code = IM GRANULOCYTES %) 0.2 0.0- 1.0 [facility] CampusNeutrophils # (Auto)2018-03-18 09:34:00* Test Item Value Reference Range Interpretation Comments Neutrophils # (Auto) (test code = 751-8) 4.0 2.1-6.9 [facility] CampusLymphocytes # (Auto)2018-03-18 09:34:00* Test Item Value Reference Range Interpretation Comments Lymphocytes # (Auto) (test code = 88779-4) 1.9 1.0-3.2 [facility] CampusMonocytes # (Auto)2018-03-18 09:34:00* Test Item Value Reference Range Interpretation Comments Monocytes # (Auto) (test code = 742-7) 0.4 0.2-0.8 [facility] CampusEosinophils # (Auto)2018-03-18 09:34:00* Test Item Value Reference Range Interpretation Comments Eosinophils # (Auto) (test code = 711-2) 0.0 0.0-0.4 [facility] CampusBasophils # (Auto)2018-03-18 09:34:00* Test Item Value Reference Range Interpretation Comments Basophils # (Auto) (test code = 704-7) 0.0 0.0-0.1 [facility] CampusAbsolute Immature Granulocyte (auto 2018-03-18 09:34:00* Test Item Value Reference Range Interpretation Comments Absolute Immature Granulocyte (auto (chiquita t code = Absolute Immature Granulocyte (auto) 0.01 0-0.1 [facility] CampusErythrocyte Sedimentation Bamf9362-08-16 10:22:00* Test Item Value Reference Range Interpretation Comments Erythrocyte Sedimentation Rate (test code = 4537-7) 20 0- 20 [facility] CampusErythrocyte Sedimentation Aafe4517-15-77 10:22:00* Test Item Value Reference Range Interpretation Comments Erythrocyte Sedimentation Rate (test code = 4537-7) 20 0- 20 [facility] CampusErythrocyte Sedimentation Rhup4467-73-67 10:22:00* Test Item Value Reference Range Interpretation Comments Erythrocyte Sedimentation Rate (test code = 4537-7) 20 0- 20 [facility] CampusErythrocyte Sedimentation Lfhu8275-77-10 10:22:00* Test Item Value Reference Range Interpretation Comments Erythrocyte Sedimentation Rate (test code = 4537-7) 20 0- 20 [facility] CampusTriglycerides Gjnff4543-22-34 09:40:00* Test Item Value Reference Range Interpretation Comments Triglycerides Level (test code = 2571-8) 160 0-149 H [facility] CampusCholesterol Ienty2036-63-18 09:40:00* Test Item Value Reference Range Interpretation Comments Cholesterol Level (test code = 2093-3) 241 0-199 H Less than 200 mg/dL Low Tcdq111 - 239 mg/dL Borderline Exgi716 m g/dl and greater High Risk [facility] CampusLDL Alrgrqnyywo8544-94-21 09:40:00* Test Item Value Reference Range Interpretation Comments LDL Cholesterol (test code = 2089-1) 165 60-130 H [facility] CampusHDL Cdexnqglmtg2532-34-84 09:40:00* Test Item Value Reference Range Interpretation Comments HDL Cholesterol (test code = 2085-9) 44 40-60 [facility] CampusCholesterol/HDL Wklqk8855-97-02 09:40:00 * Test Item Value Reference Range Interpretation Comments Cholesterol/HDL Ratio (test code = 9830-1) 5.5 3.0-3.6 H [facility] CampusTriglycerides Nxaup7969-98-87 09:40:00* Test Item Value Reference Range Interpretation Comments Triglycerides Level (test code = 2571-8) 160 0-149 H [facility] CampusCholesterol Gjdqy6072-70-64 09:40:00* Test Item Value Reference Range Interpretation Comments Cholesterol Level (test code = 2093-3) 241 0-199 H Less than 200 mg/dL Low Acon668 - 239 mg/dL Borderline Ixvw708 m g/dl and greater High Risk [facility] CampusLDL Wjmldatnfac0734-30-57 09:40:00* Test Item Value Reference Range Interpretation Comments LDL Cholesterol (test code = 2089-1) 165 60-130 H [facility] CampusHDL Qaehiztcmwv5192-82-20 09:40:00* Test Item Value Reference Range Interpretation Comments HDL Cholesterol (test code = 2085-9) 44 40-60 [facility] CampusCholesterol/HDL Lpozv5128-48-15 09:40:00 * Test Item Value Reference Range Interpretation Comments Cholesterol/HDL Ratio (test code = 9830-1) 5.5 3.0-3.6 H [facility] CampusTriglycerides Getvx4338-28-81 09:40:00* Test Item Value Reference Range Interpretation Comments Triglycerides Level (test code = 2571-8) 160 0-149 H [facility] CampusCholesterol Ppifh4890-28-19 09:40:00* Test Item Value Reference Range Interpretation Comments Cholesterol Level (test code = 2093-3) 241 0-199 H Less than 200 mg/dL Low Cdne500 - 239 mg/dL Borderline Pxxc885 m g/dl and greater High Risk [facility] CampusLDL Wsudfvtdpax5337-76-32 09:40:00* Test Item Value Reference Range Interpretation Comments LDL Cholesterol (test code = 2089-1) 165 60-130 H [facility] CampusHDL Wnrpabaakai6296-60-91 09:40:00* Test Item Value Reference Range Interpretation Comments HDL Cholesterol (test code = 2085-9) 44 40-60 [facility] CampusCholesterol/HDL Mtmcy1760-93-34 09:40:00 * Test Item Value Reference Range Interpretation Comments Cholesterol/HDL Ratio (test code = 9830-1) 5.5 3.0-3.6 H [facility] CampusTriglycerides Txlls7996-71-89 09:40:00* Test Item Value Reference Range Interpretation Comments Triglycerides Level (test code = 2571-8) 160 0-149 H [facility] CampusCholesterol Eobbb5173-09-10 09:40:00* Test Item Value Reference Range Interpretation Comments Cholesterol Level (test code = 2093-3) 241 0-199 H Less than 200 mg/dL Low Tjwh805 - 239 mg/dL Borderline Qcru831 m g/dl and greater High Risk [facility] CampusLDL Xeenmsnfacb9118-80-44 09:40:00* Test Item Value Reference Range Interpretation Comments LDL Cholesterol (test code = 2089-1) 165 60-130 [facility] Zgzbuonwdwh4671-41-51 09:40:00* Test Item Value Reference Range Interpretation Comments HDL Cholesterol (test code = 2085-9) 44 40-60 [facility] CampusCholesterol/HDL Mkkph8242-51-98 09:40:00 * Test Item Value Reference Range Interpretation Comments Cholesterol/HDL Ratio (test code = 9830-1) 5.5 3.0-3.6 H [facility] CampusHemoglobin A1c Amrxrtj2006-65-01 09:33:00 * Test Item Value Reference Range Interpretation Comments Hemoglobin A1c Percent (test code = Hemoglobin A1c Percent) 14.6 4.0-7.0 H [facility] CampusHemoglobin A1c Hurytxq5722-11-76 09:33:00 * Test Item Value Reference Range Interpretation Comments Hemoglobin A1c Percent (test code = Hemoglobin A1c Percent) 14.6 4.0-7.0 H [facility] CampusHemoglobin A1c Iohyjzw5610-01-79 09:33:00 * Test Item Value Reference Range Interpretation Comments Hemoglobin A1c Percent (test code = Hemoglobin A1c Percent) 14.6 4.0-7.0 H [facility] CampusHemoglobin A1c Lxtwhpa6686-47-35 09:33:00 * Test Item Value Reference Range Interpretation Comments Hemoglobin A1c Percent (test code = Hemoglobin A1c Percent) 14.6 4.0-7.0 H [facility] CampusTotal Zmurfxwjt5214-05-74 22:35:00* Test Item Value Reference Range Interpretation Comments Total Bilirubin (test code = 1975-2) 0.2 0.2-1.2 [facility] CampusAspartate Amino Transf (AST/SGOT) 2018-03-16 22:35:00* Test Item Value Reference Range Interpretation Comments Aspartate Amino Transf (AST/SGOT) (test code = Aspartate Amino Transf (AST/SGOT)) 10 5-34 [facility] CampusAlanine Aminotransferase (ALT/SGPT) 2018-03-16 22:35:00* Test Item Value Reference Range Interpretation Comments Alanine Aminotransferase (ALT/SGPT) (test code = 1742-6) 15 0-55 [facility] CampusTotal Pmblqhl7224-28-84 22:35:00* Test Item Value Reference Range Interpretation Comments Total Protein (test code = 2885-2) 7.3 6.5-8.1 [facility] CampusAlbumin2018-06-04 22:35:00* Test Item Value Reference Range Interpretation Comments Albumin (test code = 1751-7) 3.8 3.5-5.0 [facility] CampusGlobulin2018-06-04 22:35:00* Test Item Value Reference Range Interpretation Comments Globulin (test code = 37124-3) 3.5 2.3-3.5 [facility] CampusAlbumin/Globulin Gjowx2720-67-16 22:35:00 * Test Item Value Reference Range Interpretation Comments Albumin/Globulin Ratio (test code = 1759-0) 1.1 0.8-2.0 [facility] CampusAlkaline Zbifgepmnru4875-33-77 22:35:00* Test Item Value Reference Range Interpretation Comments Alkaline Phosphatase (test code = 6768-6) 150 40-150 [facility] Wxugumctz7926-70-95 22:35:00* Test Item Value Reference Range Interpretation Comments Total Bilirubin (test code = 1975-2) 0.2 0.2-1.2 [facility] CampusAspartate Amino Transf (AST/SGOT) 2018-03-16 22:35:00* Test Item Value Reference Range Interpretation Comments Aspartate Amino Transf (AST/SGOT) (test code = Aspartate Amino Transf (AST/SGOT)) 10 5-34 [facility] CampusAlanine Aminotransferase (ALT/SGPT) 2018-03-16 22:35:00* Test Item Value Reference Range Interpretation Comments Alanine Aminotransferase (ALT/SGPT) (test code = 1742-6) 15 0-55 [facility] Leeasmt9183-43-19 22:35:00* Test Item Value Reference Range Interpretation Comments Total Protein (test code = 2885-2) 7.3 6.5-8.1 [facility] CampusAlbumin2018-06-04 22:35:00* Test Item Value Reference Range Interpretation Comments Albumin (test code = 1751-7) 3.8 3.5-5.0 [facility] CampusGlobulin2018-06-04 22:35:00* Test Item Value Reference Range Interpretation Comments Globulin (test code = 77294-0) 3.5 2.3-3.5 [facility] CampusAlbumin/Globulin Rqhyu2049-25-68 22:35:00 * Test Item Value Reference Range Interpretation Comments Albumin/Globulin Ratio (test code = 1759-0) 1.1 0.8-2.0 [facility] CampusAlkaline Salpwagnbrq5499-65-04 22:35:00* Test Item Value Reference Range Interpretation Comments Alkaline Phosphatase (test code = 6768-6) 150 40-150 [facility] Usbwdncbi0167-72-39 22:35:00* Test Item Value Reference Range Interpretation Comments Total Bilirubin (test code = 1975-2) 0.2 0.2-1.2 [facility] CampusAspartate Amino Transf (AST/SGOT) 2018-03-16 22:35:00* Test Item Value Reference Range Interpretation Comments Aspartate Amino Transf (AST/SGOT) (test code = Aspartate Amino Transf (AST/SGOT)) 10 34 [facility] CampusAlanine Aminotransferase (ALT/SGPT) 2018-03-16 22:35:00* Test Item Value Reference Range Interpretation Comments Alanine Aminotransferase (ALT/SGPT) (test code = 1742-6) 15 0-55 [facility] CampusTotal Hdnyuld2264-50-47 22:35:00* Test Item Value Reference Range Interpretation Comments Total Protein (test code = 2885-2) 7.3 6.5-8.1 [facility] CampusAlbumin2018-06-04 22:35:00* Test Item Value Reference Range Interpretation Comments Albumin (test code = 1751-7) 3.8 3.5-5.0 [facility] CampusGlobulin2018-06-04 22:35:00* Test Item Value Reference Range Interpretation Comments Globulin (test code = 04346-8) 3.5 2.3-3.5 [facility] CampusAlbumin/Globulin Zsqpu8795-31-99 22:35:00 * Test Item Value Reference Range Interpretation Comments Albumin/Globulin Ratio (test code = 1759-0) 1.1 0.8-2.0 [facility] CampusAlkaline Pouqzdybyzt5229-06-95 22:35:00* Test Item Value Reference Range Interpretation Comments Alkaline Phosphatase (test code = 6768-6) 150 40-150 [facility] CampusTotal Eeauiasts0486-74-74 22:35:00* Test Item Value Reference Range Interpretation Comments Total Bilirubin (test code = 1975-2) 0.2 0.2-1.2 [facility] CampusAspartate Amino Transf (AST/SGOT) 2018-03-16 22:35:00* Test Item Value Reference Range Interpretation Comments Aspartate Amino Transf (AST/SGOT) (test code = Aspartate Amino Transf (AST/SGOT)) 10 34 [facility] CampusAlanine Aminotransferase (ALT/SGPT) 2018-03-16 22:35:00* Test Item Value Reference Range Interpretation Comments Alanine Aminotransferase (ALT/SGPT) (test code = 1742-6) 15 0-55 [facility] CampusTotal Ggjxcjf8565-20-01 22:35:00* Test Item Value Reference Range Interpretation Comments Total Protein (test code = 2885-2) 7.3 6.5-8.1 [facility] CampusAlbumin2018-06-04 22:35:00* Test Item Value Reference Range Interpretation Comments Albumin (test code = 1751-7) 3.8 3.5-5.0 [facility] CampusGlobulin2018-06-04 22:35:00* Test Item Value Reference Range Interpretation Comments Globulin (test code = 56330-0) 3.5 2.3-3.5 [facility] CampusAlbumin/Globulin Pqksw9336-58-68 22:35:00 * Test Item Value Reference Range Interpretation Comments Albumin/Globulin Ratio (test code = 1759-0) 1.1 0.8-2.0 [facility] CampusAlkaline Xoaxbbhmfna2767-89-17 22:35:00* Test Item Value Reference Range Interpretation Comments Alkaline Phosphatase (test code = 6768-6) 150 40-150 [facility] CampusHuzeigler Chorionic Gonadotropin, Qual 2018-03-16 22:23:00* Test Item Value Reference Range Interpretation Comments Human Chorionic Gonadotropin, Qual (test code = 2118-8) NEGATIVE NEGATIVE [facility] Chorionic Gonadotropin, Qual 2018-03-16 22:23:00* Test Item Value Reference Range Interpretation Comments Human Chorionic Gonadotropin, Qual (test code = 2118-8) NEGATIVE NEGATIVE [facility] Chorionic Gonadotropin, Qual 2018-03-16 22:23:00* Test Item Value Reference Range Interpretation Comments Human Chorionic Gonadotropin, Qual (test code = 2118-8) NEGATIVE NEGATIVE [facility] Chorionic Gonadotropin, Qual 2018-03-16 22:23:00* Test Item Value Reference Range Interpretation Comments Human Chorionic Gonadotropin, Qual (test code = 2118-8) NEGATIVE NEGATIVE [facility] Zrucmbm7418-04-84 18:08:00* Test Item Value Reference Range Interpretation Comments Blood Culture (test code = 83557278) NO GROWTH AFTER 5 DAYS, FINAL REPORT [facility] Znvynlw1774-28-31 18:08:00* Test Item Value Reference Range Interpretation Comments Blood Culture (test code = 30369829) NO GROWTH AFTER 5 DAYS, FINAL REPORT [facility] Zronkbu0625-33-29 18:08:00* Test Item Value Reference Range Interpretation Comments Blood Culture (test code = 11921913) NO GROWTH AFTER 5 DAYS, FINAL REPORT [facility] Wwbzjmt2584-32-49 18:08:00* Test Item Value Reference Range Interpretation Comments Blood Culture (test code = 17320306) NO GROWTH AFTER 5 DAYS, [facility] Seawh0204[facility]29[facility]60 [facility]:19:[facility]* Test Item Value Reference Range Interpretation Comments Lactic Acid Level (test code = Lactic Acid Level) 13.4 4.5- 19.8 [facility] Znjfr1216-14-19 00:19:00* Test Item Value Reference Range Interpretation Comments Lactic Acid Level (test code = Lactic Acid Level) 13.4 4.5- 19.8 [facility] Yvsww9265-13-57 00:19:00* Test Item Value Reference Range Interpretation Comments Lactic Acid Level (test code = Lactic Acid Level) 13.4 4.5- 19.8 [facility] Apfxa3277-93-98 00:19:00* Test Item Value Reference Range Interpretation Comments Lactic Acid Level (test code = Lactic Acid Level) 13.4 4.5- 19.8 [facility] Rnzqj7917-53-92 00:17:00* Test Item Value Reference Range Interpretation Comments Sodium Level (test code = 2951-2) 134 136-145 L [facility] CampusPotassium Jektz6099-65-35 00:17:00* Test Item Value Reference Range Interpretation Comments Potassium Level (test code = 2823-3) 3.4 3.5-5.1 L [facility] CampusChloride Wbaym4482-21-53 00:17:00* Test Item Value Reference Range Interpretation Comments Chloride Level (test code = 2075-0) 102 98-107 [facility] CampusCarbon Dioxide Hawqu7378-64-92 00:17:00* Test Item Value Reference Range Interpretation Comments Carbon Dioxide Level (test code = 2028-9) 23 22-29 [facility] CampusAnion Yuv0661-40-04 00:17:00* Test Item Value Reference Range Interpretation Comments Anion Gap (test code = 71919-0) 12.4 8-16 [facility] CampusBlood Urea Hvjxynqq3366-14-71 00:17:00* Test Item Value Reference Range Interpretation Comments Blood Urea Nitrogen (test code = 3094-0) 5 7-26 L [facility] CampusCreatinine2017-06-20 00:17:00* Test Item Value Reference Range Interpretation Comments Creatinine (test code = 2160-0) 0.71 0.57-1.11 [facility] CampusBUN/Creatinine Sbueq5769-74-91 00:17:00* Test Item Value Reference Range Interpretation Comments BUN/Creatinine Ratio (test code = 3097-3) 7 6-25 [facility] CampusEstimat Glomerular Filtration Rate 2017-04-01 00:17:00* Test Item Value Reference Range Interpretation Comments Estimat Glomerular Filtration Rate (test code = 85951-3) 60- >60 Ranges were taken from the National Kidney Disease Education Program and the [facility] Foundation literature.Reference ranges:60 or greater: Vtwoof09-42 ( for 3 consecutive months): Chronic kidney disease 15 or less: Kidney failureThe Hospitals of Providence [facility] CampusGlucose Uewor1683-00-56 00:17:00* Test Item Value Reference Range Interpretation Comments Glucose Level (test code = FGF2666) 294 74-118 H [facility] CampusCalcium Wfekf3494-57-90 00:17:00* Test Item Value Reference Range Interpretation Comments Calcium Level (test code = 35188-7) 8.8 8.4-10.2 [facility] Zdndu8849-90-44 00:17:00* Test Item Value Reference Range Interpretation Comments Sodium Level (test code = 2951-2) 134 136-145 L [facility] CampusPotassium Zyezx6674-46-99 00:17:00* Test Item Value Reference Range Interpretation Comments Potassium Level (test code = 2823-3) 3.4 3.5-5.1 L [facility] CampusChloride Xxuyc5240-03-37 00:17:00* Test Item Value Reference Range Interpretation Comments Chloride Level (test code = 2075-0) 102 98-107 [facility] CampusCarbon Dioxide Rpuvl1282-03-45 00:17:00* Test Item Value Reference Range Interpretation Comments Carbon Dioxide Level (test code = 2028-9) 23 22-29 [facility] CampusAnion Ztu9192-81-27 00:17:00* Test Item Value Reference Range Interpretation Comments Anion Gap (test code = 51271-0) 12.4 8-16 [facility] CampusBlood Urea Nqfnceba7451-07-24 00:17:00* Test Item Value Reference Range Interpretation Comments Blood Urea Nitrogen (test code = 3094-0) 5 7-26 L [facility] CampusCreatinine2017-06-20 00:17:00* Test Item Value Reference Range Interpretation Comments Creatinine (test code = 2160-0) 0.71 0.57-1.11 [facility] CampusBUN/Creatinine Sutao6500-41-35 00:17:00* Test Item Value Reference Range Interpretation Comments BUN/Creatinine Ratio (test code = 3097-3) 7 6-25 [facility] CampusEstimat Glomerular Filtration Rate 2017-04-01 00:17:00* Test Item Value Reference Range Interpretation Comments Estimat Glomerular Filtration Rate (test code = 37691-9) 60- >60 Ranges were taken from the National Kidney Disease Education Program and the [facility] literature.Reference ranges:60 or greater: Zhwvrk99-73 ( for 3 consecutive months): Chronic kidney disease 15 or less: Kidney failureThe Hospitals of Providence [facility] CampusGlucose Abbqp4604-53-89 00:17:00* Test Item Value Reference Range Interpretation Comments Glucose Level (test code = OHM0355) 294 74-118 H [facility] CampusCalcium Wfbwf4774-21-24 00:17:00* Test Item Value Reference Range Interpretation Comments Calcium Level (test code = 04546-9) 8.8 8.4-10.2 [facility] Owztd7635-42-10 00:17:00* Test Item Value Reference Range Interpretation Comments Sodium Level (test code = 2951-2) 134 136-145 L [facility] CampusPotassium Vnoeh2058-26-02 00:17:00* Test Item Value Reference Range Interpretation Comments Potassium Level (test code = 2823-3) 3.4 3.5-5.1 L [facility] CampusChloride Umrto1699-84-01 00:17:00* Test Item Value Reference Range Interpretation Comments Chloride Level (test code = 2075-0) 102 98-107 [facility] CampusCarbon Dioxide Qkysk9506-63-64 00:17:00* Test Item Value Reference Range Interpretation Comments Carbon Dioxide Level (test code = 2028-9) 23 22-29 [facility] CampusAnion Sdy7726-71-37 00:17:00* Test Item Value Reference Range Interpretation Comments Anion Gap (test code = 06493-5) 12.4 8-16 [facility] CampusBlood Urea Izbxllef7875-47-01 00:17:00* Test Item Value Reference Range Interpretation Comments Blood Urea Nitrogen (test code = 3094-0) 5 7-26 L [facility] CampusCreatinine2017-06-20 00:17:00* Test Item Value Reference Range Interpretation Comments Creatinine (test code = 2160-0) 0.71 0.57-1.11 [facility] CampusBUN/Creatinine Ajvso0965-55-71 00:17:00* Test Item Value Reference Range Interpretation Comments BUN/Creatinine Ratio (test code = 3097-3) 7 6-25 [facility] CampusEstimat Glomerular Filtration Rate 2017-04-01 00:17:00* Test Item Value Reference Range Interpretation Comments Estimat Glomerular Filtration Rate (test code = 44071-0) 60- >60 Ranges were taken from the National Kidney Disease Education Program and the [facility] literature.Reference ranges:60 or greater: Szgiuu76-32 ( for 3 consecutive months): Chronic kidney disease 15 or less: Kidney failureThe Hospitals of Providence [facility] CampusGlucose Wfsnc0510-13-17 00:17:00* Test Item Value Reference Range Interpretation Comments Glucose Level (test code = BGR7541) 294 74-118 H [facility] CampusCalcium Bxrfw3594-07-94 00:17:00* Test Item Value Reference Range Interpretation Comments Calcium Level (test code = 99763-7) 8.8 8.4-10.2 [facility] Nqgrd8936-10-50 00:17:00* Test Item Value Reference Range Interpretation Comments Sodium Level (test code = 2951-2) 134 136-145 L [facility] CampusPotassium Cfxfp9191-61-58 00:17:00* Test Item Value Reference Range Interpretation Comments Potassium Level (test code = 2823-3) 3.4 3.5-5.1 L [facility] CampusChloride Vpzfn6494-18-16 00:17:00* Test Item Value Reference Range Interpretation Comments Chloride Level (test code = 2075-0) 102 98-107 [facility] CampusCarbon Dioxide Dumdu4083-30-35 00:17:00* Test Item Value Reference Range Interpretation Comments Carbon Dioxide Level (test code = 2028-9) 23 22-29 [facility] CampusAnion Waf4498-71-74 00:17:00* Test Item Value Reference Range Interpretation Comments Anion Gap (test code = 30172-4) 12.4 8-16 [facility] CampusBlood Urea Xynvlkro8669-37-67 00:17:00* Test Item Value Reference Range Interpretation Comments Blood Urea Nitrogen (test code = 3094-0) 5 7-26 L [facility] CampusCreatinine2017-06-20 00:17:00* Test Item Value Reference Range Interpretation Comments Creatinine (test code = 2160-0) 0.71 0.57-1.11 [facility] CampusBUN/Creatinine Chqwl1756-83-25 00:17:00* Test Item Value Reference Range Interpretation Comments BUN/Creatinine Ratio (test code = 3097-3) 7 6-25 [facility] CampusEstimat Glomerular Filtration Rate 2017-04-01 00:17:00* Test Item Value Reference Range Interpretation Comments Estimat Glomerular Filtration Rate (test code = 97591-1) 60- >60 Ranges were taken from the National Kidney Disease Education Program and the [facility] Kidney Foundation literature.Reference ranges:60 or greater: Lywbcy88-34 ( for 3 consecutive months): Chronic kidney disease 15 or less: Kidney failureThe Hospitals of Providence [facility] CampusGlucose Yfrrr5039-68-06 00:17:00* Test Item Value Reference Range Interpretation Comments Glucose Level (test code = HRM2435) 294 74-118 H [facility] CampusCalcium Ebzvw2605-99-77 00:17:00* Test Item Value Reference Range Interpretation Comments Calcium Level (test code = 57951-5) 8.8 8.4-10.2 [facility] CampusUrine ULT3735-29-99 19:10:00* Test Item Value Reference Range Interpretation Comments Urine WBC (test code = 5821-4) 6-10 0-5 H [facility] CampusUrine VXA8309-04-56 19:10:00* Test Item Value Reference Range Interpretation Comments Urine RBC (test code = 83020-8) NONE 0-5 [facility] CampusUrine Kciezxbr1819-91-13 19:10:00* Test Item Value Reference Range Interpretation Comments Urine Bacteria (test code = 94053-6) FEW NONE [facility] CampusUrine Epithelial Pawfw6760-65-48 19:10:00 * Test Item Value Reference Range Interpretation Comments Urine Epithelial Cells (test code = 02138-0) MODERATE NONE [facility] CampusUrine Drjgf8882-76-72 19:10:00* Test Item Value Reference Range Interpretation Comments Urine Yeast (test code = 41390-6) RARE NONE H [facility] CampusUrine MKG0457-76-00 19:10:00* Test Item Value Reference Range Interpretation Comments Urine WBC (test code = 5821-4) 6-10 0-5 H [facility] RDS2119-93-29 19:10:00* Test Item Value Reference Range Interpretation Comments Urine RBC (test code = 71919-3) NONE 0-5 [facility] Lhubljrt9437-82-32 19:10:00* Test Item Value Reference Range Interpretation Comments Urine Bacteria (test code = 39125-0) FEW NONE [facility] CampusUrine Epithelial Menra6140-50-27 19:10:00 * Test Item Value Reference Range Interpretation Comments Urine Epithelial Cells (test code = 24741-5) MODERATE NONE [facility] Bhtrw7362-37-51 19:10:00* Test Item Value Reference Range Interpretation Comments Urine Yeast (test code = 60446-1) RARE NONE H [facility] GWR6599-93-60 19:10:00* Test Item Value Reference Range Interpretation Comments Urine WBC (test code = 5821-4) 6-10 0-5 H [facility] RSI2625-48-25 19:10:00* Test Item Value Reference Range Interpretation Comments Urine RBC (test code = 81984-1) NONE 0-5 [facility] Agpksesi2007-56-32 19:10:00* Test Item Value Reference Range Interpretation Comments Urine Bacteria (test code = 11463-3) FEW NONE [facility] CampusUrine Epithelial Zzxrd3901-37-53 19:10:00 * Test Item Value Reference Range Interpretation Comments Urine Epithelial Cells (test code = 74561-7) MODERATE NONE [facility] Ghjkc7886-14-25 19:10:00* Test Item Value Reference Range Interpretation Comments Urine Yeast (test code = 69414-2) RARE NONE H [facility] TKW0480-81-08 19:10:00* Test Item Value Reference Range Interpretation Comments Urine WBC (test code = 5821-4) 6-10 0-5 H [facility] AKC9901-57-56 19:10:00* Test Item Value Reference Range Interpretation Comments Urine RBC (test code = 92944-9) NONE 0-5 [facility] CampusU[facility] Vniwvdww9140-21-11 19:10:00* Test Item Value Reference Range Interpretation Comments Urine Bacteria (test code = 18024-4) FEW NONE [facility] CampusUrine Epithelial Wuhya9012-58-86 19:10:00 * Test Item Value Reference Range Interpretation Comments Urine Epithelial Cells (test code = 71324-0) MODERATE NONE [facility] Zhxyj2760-96-65 19:10:00* Test Item Value Reference Range Interpretation Comments Urine Yeast (test code = 85183-2) RARE NONE H [facility] CampusUrine Lzehg6220-51-56 19:07:00* Test Item Value Reference Range Interpretation Comments Urine Color (test code = 5778-6) YELLOW YELLOW [facility] Vwsnsph8314-76-64 19:07:00* Test Item Value Reference Range Interpretation Comments Urine Clarity (test code = 79112-1) CLEAR CLEAR [facility] CampusUrine Specific Msyuugv8074-57-73 19:07:00 * Test Item Value Reference Range Interpretation Comments Urine Specific [place] (test code = 5811-5) 1.005 1.010-1.02 5 L [facility] CampusUrine mB1044-21-02 19:07:00* Test Item Value Reference Range Interpretation Comments Urine pH (test code = 90925-6) 5 5-7 [facility] CampusU[facility] Leukocyte Qmlakmwk1656-50-49 19:07:00* Test Item Value Reference Range Interpretation Comments Urine Leukocyte Esterase (test code = 5799-2) TRACE NEGATIVE H [facility] CampusUrine Fldlqjj7164-30-81 19:07:00* Test Item Value Reference Range Interpretation Comments Urine Nitrite (test code = 18315-1) NEGATIVE NEGATIVE [facility] CampusU[facility] Cmasykv6047-08-54 19:07:00* Test Item Value Reference Range Interpretation Comments Urine Protein (test code = 5804-0) NEGATIVE NEGATIVE [facility] CampusUrine Glucose (UA)2017-03-31 19:07:00* Test Item Value Reference Range Interpretation Comments Urine Glucose (UA) (test code = 2349-9) 3+ NEGATIVE H [facility] CampusUrine Ygsanue7075-20-73 19:07:00* Test Item Value Reference Range Interpretation Comments Urine Ketones (test code = 89574-0) NEGATIVE NEGATIVE [facility] [facility] Siwsrgyyhirf7943-17-24 19:07:00* Test Item Value Reference Range Interpretation Comments Urine Urobilinogen (test code = 88258-7) 0.2 0.2-1 [facility] Otuhohcme6266-42-46 19:07:00* Test Item Value Reference Range Interpretation Comments Urine Bilirubin (test code = 1978-6) NEGATIVE NEGATIVE [facility] Ojfwt2417-98-33 19:07:00* Test Item Value Reference Range Interpretation Comments Urine Blood (test code = 76320-5) NEGATIVE NEGATIVE [facility] Jnatr9263-78-26 19:07:00* Test Item Value Reference Range Interpretation Comments Urine Color (test code = 5778-6) YELLOW YELLOW [facility] Ivixcfc2139-43-82 19:07:00* Test Item Value Reference Range Interpretation Comments Urine Clarity (test code = 19096-0) CLEAR CLEAR [facility] Specific Zbhlkgj2711-86-27 19:07:00 * Test Item Value Reference Range Interpretation Comments Urine Specific [place] (test code = 5811-5) 1.005 1.010-1.02 5 L [facility] [id number] 19:07:00* Test Item Value Reference Range Interpretation Comments Urine pH (test code = 62977-4) 5 5-7 [facility] Leukocyte Quishmsc8458-92-67 19:07:00* Test Item Value Reference Range Interpretation Comments Urine Leukocyte Esterase (test code = 5799-2) TRACE NEGATIVE H [facility] Vsfyawh1962-10-48 19:07:00* Test Item Value Reference Range Interpretation Comments Urine Nitrite (test code = 61109-1) NEGATIVE NEGATIVE [facility] Fgsjrew0391-72-06 19:07:00* Test Item Value Reference Range Interpretation Comments Urine Protein (test code = 5804-0) NEGATIVE NEGATIVE [facility] Glucose (UA)2017-03-31 19:07:00* Test Item Value Reference Range Interpretation Comments Urine Glucose (UA) (test code = 2349-9) 3+ NEGATIVE H [facility] Luweuji2444-49-68 19:07:00* Test Item Value Reference Range Interpretation Comments Urine Ketones (test code = 83147-1) NEGATIVE NEGATIVE [facility] Wakhjbdxiscy6234-84-80 19:07:00* Test Item Value Reference Range Interpretation Comments Urine Urobilinogen (test code = 63721-9) 0.2 0.2-1 [facility] Ireamoluk4914-02-53 19:07:00* Test Item Value Reference Range Interpretation Comments Urine Bilirubin (test code = 1978-6) NEGATIVE NEGATIVE [facility] Xnsht4101-73-45 19:07:00* Test Item Value Reference Range Interpretation Comments Urine Blood (test code = 07922-3) NEGATIVE NEGATIVE [facility] Xznnj0196-28-94 19:07:00* Test Item Value Reference Range Interpretation Comments Urine Color (test code = 5778-6) YELLOW YELLOW [facility] Hxwospx6367-63-96 19:07:00* Test Item Value Reference Range Interpretation Comments Urine Clarity (test code = 73789-7) CLEAR CLEAR [facility] Specific Xjgxvtx9769-89-45 19:07:00 * Test Item Value Reference Range Interpretation Comments Urine Specific [place] (test code = 5811-5) 1.005 1.010-1.02 5 L [facility] tK0593-06-21 19:07:00* Test Item Value Reference Range Interpretation Comments Urine pH (test code = 27580-4) 5 5-7 [facility] Leukocyte Pofqinnt3445-18-26 19:07:00* Test Item Value Reference Range Interpretation Comments Urine Leukocyte Esterase (test code = 5799-2) TRACE NEGATIVE H [facility] Oibipzt9918-73-26 19:07:00* Test Item Value Reference Range Interpretation Comments Urine Nitrite (test code = 52253-5) NEGATIVE NEGATIVE [facility] Pgxfwrv1277-81-93 19:07:00* Test Item Value Reference Range Interpretation Comments Urine Protein (test code = 5804-0) NEGATIVE NEGATIVE [facility] Glucose (UA)2017-03-31 19:07:00* Test Item Value Reference Range Interpretation Comments Urine Glucose (UA) (test code = 2349-9) 3+ NEGATIVE H [facility] Baegrso9988-36-34 19:07:00* Test Item Value Reference Range Interpretation Comments Urine Ketones (test code = 38272-5) NEGATIVE NEGATIVE [facility] Tnjwvkozvcor8405-43-20 19:07:00* Test Item Value Reference Range Interpretation Comments Urine Urobilinogen (test code = 83997-3) 0.2 0.2-1 [facility] Aqukfuejz7317-88-52 19:07:00* Test Item Value Reference Range Interpretation Comments Urine Bilirubin (test code = 1978-6) NEGATIVE NEGATIVE [facility] Ynchn1596-64-67 19:07:00* Test Item Value Reference Range Interpretation Comments Urine Blood (test code = 77320-9) NEGATIVE NEGATIVE [facility] Jftuq6889-91-70 19:07:00* Test Item Value Reference Range Interpretation Comments Urine Color (test code = 5778-6) YELLOW YELLOW [facility] Nniukwa2166-30-69 19:07:00* Test Item Value Reference Range Interpretation Comments Urine Clarity (test code = 96306-0) CLEAR CLEAR [facility] Specific Yrktttk2546-05-94 19:07:00 * Test Item Value Reference Range Interpretation Comments Urine Specific [place] (test code = 5811-5) 1.005 1.010-1.02 5 L [facility] jD0485-81-01 19:07:00* Test Item Value Reference Range Interpretation Comments Urine pH (test code = 21183-7) 5 5-7 [facility] Leukocyte Xdqeyrga6714-61-31 19:07:00* Test Item Value Reference Range Interpretation Comments Urine Leukocyte Esterase (test code = 5799-2) TRACE NEGATIVE H [facility] Zlvtzaq3869-11-35 19:07:00* Test Item Value Reference Range Interpretation Comments Urine Nitrite (test code = 49415-1) NEGATIVE NEGATIVE [facility] Udvqtja1325-13-22 19:07:00* Test Item Value Reference Range Interpretation Comments Urine Protein (test code = 5804-0) NEGATIVE NEGATIVE [facility] Glucose (UA)2017-03-31 19:07:00* Test Item Value Reference Range Interpretation Comments Urine Glucose (UA) (test code = 2349-9) 3+ NEGATIVE H [facility] Rtfoepf4668-37-37 19:07:00* Test Item Value Reference Range Interpretation Comments Urine Ketones (test code = 05698-2) NEGATIVE NEGATIVE [facility] Zjnzykfuawva4855-72-83 19:07:00* Test Item Value Reference Range Interpretation Comments Urine Urobilinogen (test code = 12568-1) 0.2 0.2-1 [facility] Zntadrbca4244-10-50 19:07:00* Test Item Value Reference Range Interpretation Comments Urine Bilirubin (test code = 1978-6) NEGATIVE NEGATIVE [facility] Ppwuy5872-40-72 19:07:00* Test Item Value Reference Range Interpretation Comments Urine Blood (test code = 25590-9) NEGATIVE NEGATIVE [facility]Total Zvcpdvugn2866-79-55 18:33:00* Test Item Value Reference Range Interpretation Comments Total Bilirubin (test code = 1975-2) 0.2 0.2-1.2 [facility] CampusAspartate Amino Transf (AST/SGOT) 2017-03-31 18:33:00* Test Item Value Reference Range Interpretation Comments Aspartate Amino Transf (AST/SGOT) (test code = Aspartate Amino Transf (AST/SGOT)) 11 5-34 [facility] CampusAlanine Aminotransferase (ALT/SGPT) 2017-03-31 18:33:00* Test Item Value Reference Range Interpretation Comments Alanine Aminotransferase (ALT/SGPT) (test code = 1742-6) 14 0-55 [facility] CampusTotal Ltsrxrh2491-35-72 18:33:00* Test Item Value Reference Range Interpretation Comments Total Protein (test code = 2885-2) 7.7 6.5-8.1 [facility] CampusAlbumin2017-06-19 18:33:00* Test Item Value Reference Range Interpretation Comments Albumin (test code = 1751-7) 3.9 3.5-5.0 [facility] CampusGlobulin2017-06-19 18:33:00* Test Item Value Reference Range Interpretation Comments Globulin (test code = 23542-4) 3.8 2.3-3.5 H [facility] CampusAlbumin/Globulin Myzdn2636-57-74 18:33:00 * Test Item Value Reference Range Interpretation Comments Albumin/Globulin Ratio (test code = 1759-0) 1.0 0.8-2.0 [facility] CampusAlkaline Vdrwukuquna1230-95-89 18:33:00* Test Item Value Reference Range Interpretation Comments Alkaline Phosphatase (test code = 6768-6) 156 40-150 H [facility] CampusTotal Ilswillag2090-40-45 18:33:00* Test Item Value Reference Range Interpretation Comments Total Bilirubin (test code = 1975-2) 0.2 0.2-1.2 [facility] CampusAspartate Amino Transf (AST/SGOT) 2017-03-31 18:33:00* Test Item Value Reference Range Interpretation Comments Aspartate Amino Transf (AST/SGOT) (test code = Aspartate Amino Transf (AST/SGOT)) 11 5-34 [facility] CampusAlanine Aminotransferase (ALT/SGPT) 2017-03-31 18:33:00* Test Item Value Reference Range Interpretation Comments Alanine Aminotransferase (ALT/SGPT) (test code = 1742-6) 14 0-55 [facility] Ooesvvf4390-57-58 18:33:00* Test Item Value Reference Range Interpretation Comments Total Protein (test code = 2885-2) 7.7 6.5-8.1 [facility] CampusAlbumin2017-06-19 18:33:00* Test Item Value Reference Range Interpretation Comments Albumin (test code = 1751-7) 3.9 3.5-5.0 [facility] CampusGlobulin2017-06-19 18:33:00* Test Item Value Reference Range Interpretation Comments Globulin (test code = 78292-2) 3.8 2.3-3.5 H [facility] CampusAlbumin/Globulin Kvbap0103-60-17 18:33:00 * Test Item Value Reference Range Interpretation Comments Albumin/Globulin Ratio (test code = 1759-0) 1.0 0.8-2.0 [facility] CampusAlkaline Ekzecdxrzpj1605-86-52 18:33:00* Test Item Value Reference Range Interpretation Comments Alkaline Phosphatase (test code = 6768-6) 156 40-150 H [facility] CampusTotal Cleyxqwbf4815-47-11 18:33:00* Test Item Value Reference Range Interpretation Comments Total Bilirubin (test code = 1975-2) 0.2 0.2-1.2 [facility] CampusAspartate Amino Transf (AST/SGOT) 2017-03-31 18:33:00* Test Item Value Reference Range Interpretation Comments Aspartate Amino Transf (AST/SGOT) (test code = Aspartate Amino Transf (AST/SGOT)) 11 5-34 [facility] CampusAlanine Aminotransferase (ALT/SGPT) 2017-03-31 18:33:00* Test Item Value Reference Range Interpretation Comments Alanine Aminotransferase (ALT/SGPT) (test code = 1742-6) 14 0-55 [facility] CampusTotal Ggaudgv0847-81-63 18:33:00* Test Item Value Reference Range Interpretation Comments Total Protein (test code = 2885-2) 7.7 6.5-8.1 [facility] CampusAlbumin2017-06-19 18:33:00* Test Item Value Reference Range Interpretation Comments Albumin (test code = 1751-7) 3.9 3.5-5.0 [facility] CampusGlobulin2017-06-19 18:33:00* Test Item Value Reference Range Interpretation Comments Globulin (test code = 30780-0) 3.8 2.3-3.5 H [facility] CampusAlbumin/Globulin Vsgmc0757-57-09 18:33:00 * Test Item Value Reference Range Interpretation Comments Albumin/Globulin Ratio (test code = 1759-0) 1.0 0.8-2.0 [facility] CampusAlkaline Hehaltmxnho7848-60-43 18:33:00* Test Item Value Reference Range Interpretation Comments Alkaline Phosphatase (test code = 6768-6) 156 40-150 H [facility] CampusTotal Jrsslqhcd4094-21-96 18:33:00* Test Item Value Reference Range Interpretation Comments Total Bilirubin (test code = 1975-2) 0.2 0.2-1.2 [facility] CampusAspartate Amino Transf (AST/SGOT) 2017-03-31 18:33:00* Test Item Value Reference Range Interpretation Comments Aspartate Amino Transf (AST/SGOT) (test code = Aspartate Amino Transf (AST/SGOT)) 11 5-34 [facility] CampusAlanine Aminotransferase (ALT/SGPT) 2017-03-31 18:33:00* Test Item Value Reference Range Interpretation Comments Alanine Aminotransferase (ALT/SGPT) (test code = 1742-6) 14 0-55 [facility] CampusTotal Elesycb4679-37-64 18:33:00* Test Item Value Reference Range Interpretation Comments Total Protein (test code = 2885-2) 7.7 6.5-8.1 [facility] CampusAlbumin2017-06-19 18:33:00* Test Item Value Reference Range Interpretation Comments Albumin (test code = 1751-7) 3.9 3.5-5.0 [facility] CampusGlobulin2017-06-19 18:33:00* Test Item Value Reference Range Interpretation Comments Globulin (test code = 79970-8) 3.8 2.3-3.5 H [facility] CampusAlbumin/Globulin Scuiy0482-27-37 18:33:00 * Test Item Value Reference Range Interpretation Comments Albumin/Globulin Ratio (test code = 1759-0) 1.0 0.8-2.0 [facility] CampusAlkaline Btkztrxtlaz3128-82-32 18:33:00* Test Item Value Reference Range Interpretation Comments Alkaline Phosphatase (test code = 6768-6) 156 40-150 H [facility] CampusWhite Blood Pxdrh9494-57-31 18:13:00* Test Item Value Reference Range Interpretation Comments White Blood Count (test code = 6690-2) 4.77 4.8-10.8 L [facility] CampusRed Blood Plopt0159-11-56 18:13:00* Test Item Value Reference Range Interpretation Comments Red Blood Count (test code = 789-8) 5.09 3.6-5.1 [facility] CampusHemoglobin2017-06-19 18:13:00* Test Item Value Reference Range Interpretation Comments Hemoglobin (test code = 64577-9) 15.0 12.0-16.0 [facility] CampusHematocrit2017-06-19 18:13:00* Test Item Value Reference Range Interpretation Comments Hematocrit (test code = 4544-3) 43.5 34.2-44.1 [facility] CampusMean Corpuscular Mylqcm0260-24-43 18:13:00* Test Item Value Reference Range Interpretation Comments Mean Corpuscular Volume (test code = 787-2) 85.5 81-99 [facility] CampusMean Corpuscular Vcbaqvesby1955-06-02 18:13:00* Test Item Value Reference Range Interpretation Comments Mean Corpuscular Hemoglobin (test code = 785-6) 29.5 28-32 [facility] CampusMean Corpuscular Hemoglobin Concent 2017-03-31 18:13:00* Test Item Value Reference Range Interpretation Comments Mean Corpuscular Hemoglobin Concent (test code = 786-4) 34.5 31-35 [facility] CampusRed Cell Distribution Cfnvp4787-87-56 18:13:00* Test Item Value Reference Range Interpretation Comments Red Cell Distribution Width (test code = 60991-9) 11.9 11.7 -14.4 [facility] CampusPlatelet Wkxnz2626-27-47 18:13:00* Test Item Value Reference Range Interpretation Comments Platelet Count (test code = 777-3) 221 140-360 [facility] CampusNeutrophils (%) (Auto)2017-03-31 18:13:00 * Test Item Value Reference Range Interpretation Comments Neutrophils (%) (Auto) (test code = 19200-4) 41.4 38.7-80.0 [facility] CampusLymphocytes (%) (Auto)2017-03-31 18:13:00 * Test Item Value Reference Range Interpretation Comments Lymphocytes (%) (Auto) (test code = 736-9) 47.2 18.0-39.1 H [facility] CampusMonocytes (%) (Auto)2017-03-31 18:13:00* Test Item Value Reference Range Interpretation Comments Monocytes (%) (Auto) (test code = 5905-5) 9.6 4.4-11.3 [facility] CampusEosinophils (%) (Auto)2017-03-31 18:13:00 * Test Item Value Reference Range Interpretation Comments Eosinophils (%) (Auto) (test code = 713-8) 1.0 0.0-6.0 [facility] CampusBasophils (%) (Auto)2017-03-31 18:13:00* Test Item Value Reference Range Interpretation Comments Basophils (%) (Auto) (test code = 706-2) 0.6 0.0-1.0 [facility] CampusIM GRANULOCYTES %2017-03-31 18:13:00* Test Item Value Reference Range Interpretation Comments IM GRANULOCYTES % (test code = IM GRANULOCYTES %) 0.2 0.0- 1.0 [facility] CampusNeutrophils # (Auto)2017-03-31 18:13:00* Test Item Value Reference Range Interpretation Comments Neutrophils # (Auto) (test code = 751-8) 2.0 2.1-6.9 L [facility] CampusLymphocytes # (Auto)2017-03-31 18:13:00* Test Item Value Reference Range Interpretation Comments Lymphocytes # (Auto) (test code = 81544-5) 2.3 1.0-3.2 [facility] CampusMonocytes # (Auto)2017-03-31 18:13:00* Test Item Value Reference Range Interpretation Comments Monocytes # (Auto) (test code = 742-7) 0.5 0.2-0.8 [facility] CampusEosinophils # (Auto)2017-03-31 18:13:00* Test Item Value Reference Range Interpretation Comments Eosinophils # (Auto) (test code = 711-2) 0.1 0.0-0.4 [facility] CampusBasophils # (Auto)2017-03-31 18:13:00* Test Item Value Reference Range Interpretation Comments Basophils # (Auto) (test code = 704-7) 0.0 0.0-0.1 [facility] CampusAbsolute Immature Granulocyte (auto 2017-03-31 18:13:00* Test Item Value Reference Range Interpretation Comments Absolute Immature Granulocyte (auto (chiquita t code = Absolute Immature Granulocyte (auto) 0.01 0-0.1 [facility] CampusWhite Blood Cghly2599-34-93 18:13:00* Test Item Value Reference Range Interpretation Comments White Blood Count (test code = 6690-2) 4.77 4.8-10.8 L [facility] CampusRed Blood Bofxl2495-81-83 18:13:00* Test Item Value Reference Range Interpretation Comments Red Blood Count (test code = 789-8) 5.09 3.6-5.1 [facility] CampusHemoglobin2017-06-19 18:13:00* Test Item Value Reference Range Interpretation Comments Hemoglobin (test code = 21006-0) 15.0 12.0-16.0 [facility] CampusHematocrit2017-06-19 18:13:00* Test Item Value Reference Range Interpretation Comments Hematocrit (test code = 4544-3) 43.5 34.2-44.1 [facility] CampusMean Corpuscular Ahxpck1948-57-05 18:13:00* Test Item Value Reference Range Interpretation Comments Mean Corpuscular Volume (test code = 787-2) 85.5 81-99 [facility] CampusMean Corpuscular Jmyyaexwej4066-14-38 18:13:00* Test Item Value Reference Range Interpretation Comments Mean Corpuscular Hemoglobin (test code = 785-6) 29.5 28-32 [facility] CampusMean Corpuscular Hemoglobin Concent 2017-03-31 18:13:00* Test Item Value Reference Range Interpretation Comments Mean Corpuscular Hemoglobin Concent (test code = 786-4) 34.5 31-35 [facility] CampusRed Cell Distribution Jmczu1024-36-03 18:13:00* Test Item Value Reference Range Interpretation Comments Red Cell Distribution Width (test code = 79195-7) 11.9 11.7 -14.4 [facility] CampusPlatelet Pkzoa0336-36-06 18:13:00* Test Item Value Reference Range Interpretation Comments Platelet Count (test code = 777-3) 221 140-360 [facility] CampusNeutrophils (%) (Auto)2017-03-31 18:13:00 * Test Item Value Reference Range Interpretation Comments Neutrophils (%) (Auto) (test code = 55369-5) 41.4 38.7-80.0 [facility] CampusLymphocytes (%) (Auto)2017-03-31 18:13:00 * Test Item Value Reference Range Interpretation Comments Lymphocytes (%) (Auto) (test code = 736-9) 47.2 18.0-39.1 H [facility] CampusMonocytes (%) (Auto)2017-03-31 18:13:00* Test Item Value Reference Range Interpretation Comments Monocytes (%) (Auto) (test code = 5905-5) 9.6 4.4-11.3 [facility] CampusEosinophils (%) (Auto)2017-03-31 18:13:00 * Test Item Value Reference Range Interpretation Comments Eosinophils (%) (Auto) (test code = 713-8) 1.0 0.0-6.0 [facility] CampusBasophils (%) (Auto)2017-03-31 18:13:00* Test Item Value Reference Range Interpretation Comments Basophils (%) (Auto) (test code = 706-2) 0.6 0.0-1.0 [facility] CampusIM GRANULOCYTES %2017-03-31 18:13:00* Test Item Value Reference Range Interpretation Comments IM GRANULOCYTES % (test code = IM GRANULOCYTES %) 0.2 0.0- 1.0 [facility] CampusNeutrophils # (Auto)2017-03-31 18:13:00* Test Item Value Reference Range Interpretation Comments Neutrophils # (Auto) (test code = 751-8) 2.0 2.1-6.9 L [facility] CampusLymphocytes # (Auto)2017-03-31 18:13:00* Test Item Value Reference Range Interpretation Comments Lymphocytes # (Auto) (test code = 09790-8) 2.3 1.0-3.2 [facility] CampusMonocytes # (Auto)2017-03-31 18:13:00* Test Item Value Reference Range Interpretation Comments Monocytes # (Auto) (test code = 742-7) 0.5 0.2-0.8 [facility] CampusEosinophils # (Auto)2017-03-31 18:13:00* Test Item Value Reference Range Interpretation Comments Eosinophils # (Auto) (test code = 711-2) 0.1 0.0-0.4 [facility] CampusBasophils # (Auto)2017-03-31 18:13:00* Test Item Value Reference Range Interpretation Comments Basophils # (Auto) (test code = 704-7) 0.0 0.0-0.1 [facility] CampusAbsolute Immature Granulocyte (auto 2017-03-31 18:13:00* Test Item Value Reference Range Interpretation Comments Absolute Immature Granulocyte (auto (chiquita t code = Absolute Immature Granulocyte (auto) 0.01 0-0.1 [facility] CampusWhite Blood Spqny0724-86-41 18:13:00* Test Item Value Reference Range Interpretation Comments White Blood Count (test code = 6690-2) 4.77 4.8-10.8 L [facility] CampusRed Blood Eexiq4919-25-52 18:13:00* Test Item Value Reference Range Interpretation Comments Red Blood Count (test code = 789-8) 5.09 3.6-5.1 [facility] CampusHemoglobin2017-06-19 18:13:00* Test Item Value Reference Range Interpretation Comments Hemoglobin (test code = 95957-1) 15.0 12.0-16.0 [facility] CampusHematocrit2017-06-19 18:13:00* Test Item Value Reference Range Interpretation Comments Hematocrit (test code = 4544-3) 43.5 34.2-44.1 [facility] CampusMean Corpuscular Fyklmg4834-96-47 18:13:00* Test Item Value Reference Range Interpretation Comments Mean Corpuscular Volume (test code = 787-2) 85.5 81-99 [facility] CampusMean Corpuscular Zuicmdmkhc1773-66-24 18:13:00* Test Item Value Reference Range Interpretation Comments Mean Corpuscular Hemoglobin (test code = 785-6) 29.5 28-32 [facility] CampusMean Corpuscular Hemoglobin Concent 2017-03-31 18:13:00* Test Item Value Reference Range Interpretation Comments Mean Corpuscular Hemoglobin Concent (test code = 786-4) 34.5 31-35 [facility] CampusRed Cell Distribution Xvfou2500-49-17 18:13:00* Test Item Value Reference Range Interpretation Comments Red Cell Distribution Width (test code = 76160-5) 11.9 11.7 -14.4 [facility] CampusPlatelet [id number] 18:13:00* Test Item Value Reference Range Interpretation Comments Platelet Count (test code = 777-3) 221 140-360 [facility] CampusNeutrophils (%) (Auto)2017-03-31 18:13:00 * Test Item Value Reference Range Interpretation Comments Neutrophils (%) (Auto) (test code = 83951-6) 41.4 38.7-80.0 [facility] CampusLymphocytes (%) (Auto)2017-03-31 18:13:00 * Test Item Value Reference Range Interpretation Comments Lymphocytes (%) (Auto) (test code = 736-9) 47.2 18.0-39.1 H [facility] CampusMonocytes (%) (Auto)2017-03-31 18:13:00* Test Item Value Reference Range Interpretation Comments Monocytes (%) (Auto) (test code = 5905-5) 9.6 4.4-11.3 [facility]Eosinophils (%) (Auto)2017-03-31 18:13:00 * Test Item Value Reference Range Interpretation Comments Eosinophils (%) (Auto) (test code = 713-8) 1.0 0.0-6.0 [facility]Basophils (%) (Auto)2017-03-31 18:13:00* Test Item Value Reference Range Interpretation Comments Basophils (%) (Auto) (test code = 706-2) 0.6 0.0-1.0 [facility] CampusIM GRANULOCYTES %2017-03-31 18:13:00* Test Item Value Reference Range Interpretation Comments IM GRANULOCYTES % (test code = IM GRANULOCYTES %) 0.2 0.0- 1.0 [facility] CampusNeutrophils # (Auto)2017-03-31 18:13:00* Test Item Value Reference Range Interpretation Comments Neutrophils # (Auto) (test code = 751-8) 2.0 2.1-6.9 L [facility] CampusLymphocytes # (Auto)2017-03-31 18:13:00* Test Item Value Reference Range Interpretation Comments Lymphocytes # (Auto) (test code = 26588-4) 2.3 1.0-3.2 [facility] CampusMonocytes # (Auto)2017-03-31 18:13:00* Test Item Value Reference Range Interpretation Comments Monocytes # (Auto) (test code = 742-7) 0.5 0.2-0.8 [facility]Eosinophils # (Auto)2017-03-31 18:13:00* Test Item Value Reference Range Interpretation Comments Eosinophils # (Auto) (test code = 711-2) 0.1 0.0-0.4 [facility]Basophils # (Auto)2017-03-31 18:13:00* Test Item Value Reference Range Interpretation Comments Basophils # (Auto) (test code = 704-7) 0.0 0.0-0.1 [facility] CampusAbsolute Immature Granulocyte (auto 2017-03-31 18:13:00* Test Item Value Reference Range Interpretation Comments Absolute Immature Granulocyte (auto (chiquita t code = Absolute Immature Granulocyte (auto) 0.01 0-0.1 [facility] CampusWhite Blood Isvps2142-33-03 18:13:00* Test Item Value Reference Range Interpretation Comments White Blood Count (test code = 6690-2) 4.77 4.8-10.8 L [facility] CampusRed Blood Rawtu5794-88-25 18:13:00* Test Item Value Reference Range Interpretation Comments Red Blood Count (test code = 789-8) 5.09 3.6-5.1 [facility] CampusHemoglobin2017-06-19 18:13:00* Test Item Value Reference Range Interpretation Comments Hemoglobin (test code = 26540-7) 15.0 12.0-16.0 [facility] CampusHematocrit2017-06-19 18:13:00* Test Item Value Reference Range Interpretation Comments Hematocrit (test code = 4544-3) 43.5 34.2-44.1 [facility] CampusMean Corpuscular Ugzydq1835-96-37 18:13:00* Test Item Value Reference Range Interpretation Comments Mean Corpuscular Volume (test code = 787-2) 85.5 81-99 [facility] CampusMean Corpuscular Yposqtkjpp0534-25-79 18:13:00* Test Item Value Reference Range Interpretation Comments Mean Corpuscular Hemoglobin (test code = 785-6) 29.5 28-32 [facility] CampusMean Corpuscular Hemoglobin Concent 2017-03-31 18:13:00* Test Item Value Reference Range Interpretation Comments Mean Corpuscular Hemoglobin Concent (test code = 786-4) 34.5 31-35 [facility] CampusRed Cell Distribution Frwol5479-76-51 18:13:00* Test Item Value Reference Range Interpretation Comments Red Cell Distribution Width (test code = 43696-0) 11.9 11.7 -14.4 [facility] CampusPlatelet Fqyur6484-48-32 18:13:00* Test Item Value Reference Range Interpretation Comments Platelet Count (test code = 777-3) 221 140-360 [facility] CampusNeutrophils (%) (Auto)2017-03-31 18:13:00 * Test Item Value Reference Range Interpretation Comments Neutrophils (%) (Auto) (test code = 04805-9) 41.4 38.7-80.0 [facility] CampusLymphocytes (%) (Auto)2017-03-31 18:13:00 * Test Item Value Reference Range Interpretation Comments Lymphocytes (%) (Auto) (test code = 736-9) 47.2 18.0-39.1 H [facility] CampusMonocytes (%) (Auto)2017-03-31 18:13:00* Test Item Value Reference Range Interpretation Comments Monocytes (%) (Auto) (test code = 5905-5) 9.6 4.4-11.3 [facility] CampusEosinophils (%) (Auto)2017-03-31 18:13:00 * Test Item Value Reference Range Interpretation Comments Eosinophils (%) (Auto) (test code = 713-8) 1.0 0.0-6.0 [facility] CampusBasophils (%) (Auto)2017-03-31 18:13:00* Test Item Value Reference Range Interpretation Comments Basophils (%) (Auto) (test code = 706-2) 0.6 0.0-1.0 [facility] CampusIM GRANULOCYTES %2017-03-31 18:13:00* Test Item Value Reference Range Interpretation Comments IM GRANULOCYTES % (test code = IM GRANULOCYTES %) 0.2 0.0- 1.0 [facility] CampusNeutrophils # (Auto)2017-03-31 18:13:00* Test Item Value Reference Range Interpretation Comments Neutrophils # (Auto) (test code = 751-8) 2.0 2.1-6.9 L [facility] CampusLymphocytes # (Auto)2017-03-31 18:13:00* Test Item Value Reference Range Interpretation Comments Lymphocytes # (Auto) (test code = 05174-8) 2.3 1.0-3.2 [facility] CampusMonocytes # (Auto)2017-03-31 18:13:00* Test Item Value Reference Range Interpretation Comments Monocytes # (Auto) (test code = 742-7) 0.5 0.2-0.8 [facility] CampusEosinophils # (Auto)2017-03-31 18:13:00* Test Item Value Reference Range Interpretation Comments Eosinophils # (Auto) (test code = 711-2) 0.1 0.0-0.4 [facility] CampusBasophils # (Auto)2017-03-31 18:13:00* Test Item Value Reference Range Interpretation Comments Basophils # (Auto) (test code = 704-7) 0.0 0.0-0.1 [facility] CampusAbsolute Immature Granulocyte (auto 2017-03-31 18:13:00* Test Item Value Reference Range Interpretation Comments Absolute Immature Granulocyte (auto (chiquita t code = Absolute Immature Granulocyte (auto) 0.01 0-0.1 [facility] CampusCT ABDOMEN/PELVIS W [place] [address] Patient Name: YOLETTE URIBE MR #: [id number] : 1975 Age/Sex: 42/F Req #: [id number] Adm Physician: JUVENTINO DUBOSE MD Ordered by: BEVERLY MARTELL RETURN TO SERVICE INSPECTOR Report #: [id number] Location: [facility] Room/Bed: ERHOLD-1 Procedure: [id number] CT/CT ABDOMEN/PELVIS W Exam Date: 03/16/18 Exam Time: 0 REPORT STATUS: Signed EXAM: CT Abdomen and Pelvis WITH contrast IN DICATION: Left perirectal abscess COMPARISON: None. TECHNIQUE: Abdomen and p cynthia were scanned utilizing a multidetector helical scanner from the lung bas e to the pubic symphysis after administration of IV contrast. Coronal and sagi ttal reformations were obtained. Routine protocol was performed. Scan was perf ormed when during portal venous phase. IV CONTRAST: 100 mL of Isov ue-370 ORAL CONTRAST: Gastrografin RADIATION DOSE: T otal DLP: 534.78 mGy*cm Estimated effective dose: (DLP x 0.015 x size factor) mSv COMPLICATIONS: None FINDINGS: LINES and TUBES: None. LOWER THORAX: Unremarkable HEPATOBILIARY: No focal hepatic lesions. No biliary ductal dilation. GALLBLADDER: No radio-opaque stones or sludge. No wall thickening. SPLEEN: No splenomegaly. PANC REAS: No focal masses or ductal dilatation. ADRENALS: No adrenal nodules KIDNEYS/URETERS: Kidneys enhance symmetrically. No hydronephrosis. No cystic or solid mass lesions. No stones. GI TRACT: No abnormal distentio n, wall thickening, or evidence of bowel obstruction. There are diverticula w ithin the colon without evidence of diverticulitis. Appendix is not clearly i dentified. There is however no fat stranding or adenopathy in the right lower quadrant to suggest appendicitis. PELVIC ORGANS/BLADDER: There are postop c hanges of hysterectomy and bilateral oophorectomies. LYMPH NODES: No lymp hadenopathy. VESSELS: Unremarkable. PERITONEUM / RETROPERITONEUM: No f ree air or fluid. BONES: Unremarkable. SOFT TISSUES: Small right glute al cleft fluid collection measuring 2.2 x 0.9 x 2.1 cm most likely a small abs cess. IMPRESSION: 1. Small right gluteal cleft abscess. 2. For assessment of perirectal fistula, MRI of the pelvis is recommended. Si gned by: Dr. Jeffery Nguyễn M.D. on 03/17/2018 12:23 AM Dictated By: JEFFERY CAROLINA MD 0 023 Transcribed By: JEMAL on 03/17/18 0023 COPY TO: BEVERLY MARTELL RETURN TO SERVICE INSPECTOR FOOT RIGHT COMPLETE [place] [address] Patient Name: YOLETTE URIBE MR #: [id number] : 1975 Age/Sex: 42/F Req #: [id number] Adm Physician: Ordered by: BEVERLY MARTELL RETURN TO SERVICE INSPECTOR Report #: [id number] Location: ER Room/Bed: Procedure: [id number] DX/FOOT RIGHT COMPLETE Exam Kamari e: 01/17/18 Exam Time: 2014 REPORT STATUS: Sign ed KNEE RIGHT THREE VIEWS ANKLE 3 + VIEWS RIGHT FOOT RIGHT COMPLETE HISTORY: Status post fall COMPARISON: None FINDINGS: Bones: Cortical defect at the proximal diaphysis of the third metatarsal diaphysis may represent a nondisplaced fracture Osseous alignment is within normal limits. 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 IMPRESSION: 1. Suspe cted nondisplaced fracture at the base of the third metatarsal diaphysis. 2. 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 Jeffery Nguyễn M.D. on 01/17/2018 8:59 PM Dictated By: JEFFERY DIETRICH MD El ectronically Signed By: JEFFERY DIETRICH MD on 01/17/182058 Transcribed By : JEMAL on 01/17/182058 COPY TO: BEVERLY MARTELL RETURN TO SERVICE INSPECTOR ANKLE 3 + VIEWS RIGHT [facility] [address] [place] [address] Patient Name: YOLETTE URIBE MR #: [id number] : 1975 Age/Sex: 42/F Req #: [id number] Adm Physician: Ordered by: BEVERLY MARTELL NP Report #: [id number] Location: ER Room/Bed: Procedure: [id number] DX/ANKLE 3 + VIEWS RIGHT Exam D ate: 01/17/18 Exam Time: 2014 REPORT STATUS: Si gned KNEE RIGHT THREE VIEWS ANKLE 3 + VIEWS RIGHT FOOT RIGHT COMPLETE HISTORY: Status post fall COMPARISON: None FINDINGS: Bones: Cortical defect at the proximal diaphysis of the third metatarsal diaphysis may represent a nondisplaced fracture Osseous alignment is within normal limits. 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 IMPRESSION: 1. Claudia pected nondisplaced fracture at the base of the third metatarsal diaphysis. 2. 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 Matt Nguyễn M.D. on 01/17/2018 8:59 PM Dictated By: JEFFERY DIETRICH MD 58 Transcribed By: JEMAL on 01/17/182058 COPY TO: BEVERLY MARTELL NP KNEE RIGHT THREE VIEWS [place] [id number] [place] [address] Patient Name: YOLETTE URIBE MR #: [id number] : 1975 Age/Sex: 42/F Req #: [id number] Adm Physician: Ordered by: BEVERLY MARTELL RETURN TO SERVICE INSPECTOR Report #: [id number] Location: ER Room/Bed: Procedure: [id number] DX/KNEE RIGHT THREE VIEWS Exam Date: 01/17/18 Exam Time: 2014 REPORT STATUS: S igned KNEE RIGHT THREE VIEWS ANKLE 3 + VIEWS RIGHT FOOT RIGHT COMPLETE HISTORY: Status post fall COMPARISON: None FINDINGS: Bones: Cortical defect at the proximal diaphysis of the third metatarsal diaphysis may represent a nondisplaced fracture Osseous alignment is within normal limits. 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 IMPRESSION: 1. Copeland spected nondisplaced fracture at the base of the third metatarsal diaphysis. 2. 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 Harika Nguyễn M.D. on 01/17/2018 8:59 PM Dictated By: JEFFERY DIETRICH MD 58 Transcribed By: JEMAL on 01/17/182058 COPY TO: BEVERLY MARTELL RETURN TO SERVICE INSPECTOR FOOT RIGHT AP LAT [place] [address] Patient Name: YOLETTE URIBE MR #: [id number] : 1975 Age/Sex: 42/F Req #: [id number] Adm Physician: Ordered by: BEVERLY MARTELL RETURN TO SERVICE INSPECTOR Report #: [id number] Location: ER Room/Bed: Procedure: [id number] DX/FOOT RIGHT AP LAT Exam Kamari e: 01/15/18 Exam Time: 1905 REPORT STATUS: Sign ed RIGHT FOOT - 2 VIEWS RIGHT ANKLE - 3 VIEWS HISTORY: Trauma , twisted ankle COMPARISON: None available. FINDINGS: Sensitiv ity limited by portable technique and nonweightbearing views. Bones: A 5 mm ossific fragment at the tip of the lateral malleolus. A 3 mm ossific fragme nt adjacent to the medial aspect of the first tarsometatarsal joint. The ank le mortise is symmetric. Joints: Scattered mild to moderate degenerative changes, most notably the tibiotalar joint. Soft tissues: Regional soft tissue swelling. IMPRESSION: Small age-indeterminate ossific fragmen ts adjacent to the tip of the lateral malleolus and the medial aspect of the f irst tarsometatarsal joint, correlate for acute focal point tenderness. S igned by: Dr. Jose R Jones D.O., M.M.M. on 01/15/2018 7:41 PM Dictated By: JOSE R JONES DO 40 Trans cribed By: JEMAL on 01/15/181940 COPY TO: BEVERLY MARTELL RETURN TO SERVICE INSPECTOR ANKLE 3 + VIEWS RIGHT [place] [address] Patient Name: YOLETTE URIBE MR #: [id number] : 1975 Age/Sex: 42/F Req #: [id number] Adm Physician: Ordered by: BEVERLY MARTELL RETURN TO SERVICE INSPECTOR Report #: [id number] Location: ER Room/Bed: Procedure: [id number] DX/ANKLE 3 + VIEWS RIGHT Exam D ate: 01/15/18 Exam Time: 1904 REPORT STATUS: Si gned RIGHT FOOT - 2 VIEWS RIGHT ANKLE - 3 VIEWS HISTORY: Trau ma, twisted ankle COMPARISON: None available. FINDINGS: Sensit ivity limited by portable technique and nonweightbearing views. Bones: A 5 mm ossific fragment at the tip of the lateral malleolus. A 3 mm ossific frag ment adjacent to the medial aspect of the first tarsometatarsal joint. The a nkle mortise is symmetric. Joints: Scattered mild to moderate degenerativ e changes, most notably the tibiotalar joint. Soft tissues: Regional so ft tissue swelling. IMPRESSION: Small age-indeterminate ossific fragm ents adjacent to the tip of the lateral malleolus and the medial aspect of the first tarsometatarsal joint, correlate for acute focal point tenderness. Signed by: Sil VigilOPaty, M.M.M. on 01/15/2018 7:41 PM Dictated By: JOSE R JONES DO 40 Tra nscribed By: JEMAL on 01/15/181940 COPY TO: BVEERLY MARTELL NP
[2020-06-13 15:33] LABS: CREATINE KINASE MB 1.2 ng/mL (0-5.0); THYROID STIMULATING HORMONE 1.139 uIU/mL (0.350-4.940)
[2020-06-13] MEDS ORDERED: SODIUM CHLORIDE 0.9% 1000ML 1,000 ML IV ONE (15:45)
[2020-06-13] MEDS ORDERED: INSULIN REGULAR, HUMAN 100 UNIT/1 ML 3ML VIAL SQ ONE (15:45)
[2020-06-13] MEDS ORDERED: CEFEPIME 2 GM/NS 0.9% 100 ML 100 ML IV SCH (16:00)
[2020-06-13] MEDS ORDERED: VANCOMYCIN 1GM/NS 250 ML 250 ML IV ONE (16:30)
--- NOTE | 2020-06-13 17:20 | NUR ---
repeat lactic acid level and chemistry panel drawn at this time and sent to lab
[2020-06-13 17:37] LABS: ANION GAP 13.5 mmol/L (8-16); BLOOD UREA NITROGEN 8 mg/dL (7-26); BUN/CREATININE RATIO 13 (6-25); CALCIUM 7.8 mg/dL (8.4-10.2); CARBON DIOXIDE 21 mmol/L (22-29); CHLORIDE 108 mmol/L (98-107); EST GLOMERULAR FILTRATION RATE > 60 ML/MIN (60-); GLUCOSE 141 mg/dL (74-118); POTASSIUM 3.5 mmol/L (3.5-5.1); SODIUM 139 mmol/L (136-145)
--- NOTE | 2020-06-13 17:40 | NUR ---
repeat lactic acid level 2.5, Dr. Mccloud notified
[2020-06-13] MEDS ORDERED: SODIUM CHLORIDE 0.9% 1000ML 1,000 ML IV SCH (18:15)
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
--- NOTE | 2020-06-13 18:59 | NUR ---
bedside report given to Marcus KEVIN
--- NOTE | 2020-06-13 19:00 | NUR ---
patient to leave againts medical advice stating that she cannot miss work and that she is the only one getting a paycheck in their household, patient is adamant that she wants to leave despite being talked to by ER attending
[2020-06-13 19:11] VITALS: BP 121/95
== END 2020-06-13 19:23 | disposition home or self-care (01) ==
LOC: ER 14:09
DX: E11.65 Type 2 diabetes mellitus with hyperglycemia (principal); R74.0 Nonspecific elevation of levels of transaminase and lactic acid dehydrogenase [LDH]; E86.0 Dehydration
CPT/HCPCS: 36415; 70450; 71045; 80048; 80053; 80307; 81001; 82550; 82553; 82948; 83605; 83735; 84443; 84484; 85025; 85610; 85730; 87040; 87086; 99284; J1817; J3370; J7030

== ENCOUNTER 2020-06-30 14:24 | Emergency (ER) | payer SELFPAY ==
[~2020-06-30] VITALS: Ht 152.4 cm; Wt 62.6 kg
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
[2020-06-30] MEDS ORDERED: HYDROCODONE/APAP 5MG-325MG TAB PO ONE ×2 (15:00→15:45)
--- OUTSIDE RECORDS SUMMARY | 2020-06-30 15:11 | XMS REPORT | Continuity of Care Document ---
Author Author Latasha Owens YOLETTE MARRERO [facility] Address Unknown Phone Unavailable Care Team Providers Care Hand Tube Bender Name Role Phone [employer] Information [employer] Unavailable Un available Problems Problem Status Onset Date Classification Date Reported Comments Source HAND PAIN Active 08/06/2013 [facility] Medications No Data Provided for This Section [...] is identified. IMPRESSION: No abnormality identified. 08/06/2013 [facility] Consultation Notes No Data Provided for This Section Discharge Summaries No Data Provided for This Section History and Physicals No Data Provided for This Section Vital Signs No Data Provided for This Section Encounters Location Location Details Encounter Type Encounter Number Reason For Visit Attending Provider ADM Date DC Date Status Source [facility] Emergency [id number] MANUEL GARCIA 08/06/2013 08/06/2013 Discharged [facility] Procedures No Data Provided for This Section [...]
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
--- OUTSIDE RECORDS SUMMARY | 2020-06-30 15:13 | XMS REPORT | Continuity of Care Document ---
Author Author [facility] t Organization [facility] Address [address] [place] [address] Phone Unavailable Care Team Providers Care Mcat Instructor Name Role Phone NO, PCP PCP Unavailable Nohemy TURCIOS Attphys Unavailable DIEGO BEE Attphys Unavailable Maisha PIKE Attphys Unavailable ELIJAH VENEGAS Attphys Unavailable Xavier Thomas Attphys Nessa Zambrano RN Attphys Unavailable Salazar Segundo Attphys Allyn Duong DO Attphys Michael COLLIER, Yasmin Attphys Xavier ISABEL Attphys Unavailable ROSARIO LEMON Attphys Unavailable Malathi Orr Attphys Salazar Barragan Attphys Unavailable Emily Naranjo LVN Attphys Cele COLLIER, Shanita Attphys Joshua COLLIER, Bony Boles Attphys Tracee KEVIN, Aaron Attphys Unavailable Woodrow COLLIER, Chapito Attphys JAZLYN ARZATE Attphys Unavailable Capo COLLIER, Shira Attphys JUAN DUBOSE Attphys Unavailable Farooq DEAN Attphys Unavailable MANUELGuillermina PAZ Attphys Unavailable JAZLYN ARZATE Admphys Unavailable JUAN DUBOSE Admphys Unavailable Payers Payer Name Policy Type Policy Number Effective Date Expiration Date Prakash lopez [facility] [id number] UNSCREENEDxxxxxxxx [id number] [place] [address] xxxxxxxxx 2020 00:00:00 [facility] Medicare A & B [id number] [facility] Medicare Complete [id number] [facility] Miscellaneous Hmo [id number] 2018 00:00:00 [facility] [employer] [id number] [facility] Problems Condition Name Condition Details Condition Category Status Onset Date Resolution Date Last Treatment Date Treating Clinician Comments Source Chronic pain of both knees Chronic pain of both knees Disease Active 2020-02-15 00:00:00 [facility] Pain in joint, ankle and foot Pain in joint, ankle and foot Disease Active 2020-02-15 00:00:00 Overview: Bilateral f oot pain [facility] Neuropathy of both feet Neuropathy of both feet Disease Active 2020-02-15 00:00:00 [facility] Diabetic neuropathy associated with type 1 diabetes me llitus Diabetic neuropathy associated with type 1 diabetes mellitus Disease Active 2020-02-15 00:00: 00 [facility] Dehydration fever Dehydration Problem Active 2015-05-14 00:00:00 [facility] Gastroenteritis Gastroenteritis Problem Active 2015-05-14 00:00:00 [facility] Reactive airway disease Reactive airway disease Problem Active 2015-05-14 00:00:00 [facility] Uncontrolled blood glucose Uncontrolled blood glucose Problem Active 2015-05-14 00:00:00 [facility] HAND PAIN HAND PAIN Active 08/06/2013 [facility] Diagnosis Active 2013-08-06 00:00:00 2013-08-06 14:53:00 [facility] Perirectal abscess Perirectal abscess Problem Active [facility] Abscess Abscess Problem Active [facility] Cellulitis Cellulitis Problem Active [facility] Herpes zoster Shingles Problem Active [facility] Hyperglycemia Problem Active [facility] Increased lactic acid level Problem Active [facility] Tinea corporis Tinea corporis Disease Active [facility] Arthritis Arthritis Disease Active [facility] Allergies, Adverse Reactions, Alerts Allergy Name Allergy Type Status Severity Reaction(s) Onset Date Inacti ve Date Treating Clinician Comments Source metformin DA Active 2020-02-21 00:00:00 [facility] Penicillins DA Active 2020-01-09 00:00:00 [facility] Sulfa (Sulfonamide Antibiotics) DA Active 2020-01-09 00 :00:00 [facility] ibuprofen DA Active 2020-01-09 00:00:00 [facility] metformin DA Active 2020-01-09 00:00:00 [facility] Sulfa (Sulfonamide Antibiotics) Allergy to substance Active Moder ate ITCH 2019-10-10 00:00:00 [facility] promethazine HCl Allergy to substance Active Mild ITCHING 2019-08-19 00:00:00 [facility] Metformin Allergy to substance Active Severe TONGUE SWELLING 2019-08-19 00:00:00 [facility] Metformin Propensity to adverse reactions to drug Active 2019-07-27 00:00:00 [facility] Sulfa (Sulfonamide Antibiotics) Propensity to adverse reactions to drug Active 2019-07-27 00:00:00 [facility] Penicillins DA Active 2019-07-23 00:00:00 [facility] Sulfa (Sulfonamide Antibiotics) DA Active 2019-07-23 00 :00:00 [facility] ibuprofen DA Active SV 2019-07-23 00:00:00 [facility] metformin DA Active SV 2019-07-23 00:00:00 [facility] Penicillins DA Active SV 2019-06-17 00:00:00 [facility] Sulfa (Sulfonamide Antibiotics) DA Active SV 2019-06-17 00 :00:00 [facility] ibuprofen DA Active SV 2019-06-17 00:00:00 [facility] metformin DA Active SV 2019-06-17 00:00:00 [facility] Penicillins DA Active SV 2018-03-15 00:00:00 [facility] Sulfa (Sulfonamide Antibiotics) DA Active SV 2018-03-15 00 :00:00 [facility] ibuprofen DA Active SV 2018-03-15 00:00:00 [facility] metformin DA Active SV 2018-03-15 00:00:00 [facility] Social History Social Habit Start Date Stop Date Quantity Comments Source Sex Assigned At [facility] Exposure to SARS-CoV-2 (event) Not sure [facility] Alcohol intake 2020-04-27 00:00:00 2020-04-27 00:00:00 Ex-drinker (fi nding) [facility] History SDOH Food Worry 2019-07-27 00:00:00 2019-07-27 00:00:00 1 [facility] History SDOH Food Scarcity 2019-07-27 00:00:00 2019-07-27 00:00:00 1 [facility] Smoking Status Start Date Stop Date Source Never smoker [facility] Medications Ordered Medication Name Filled Medication Name Start Date Stop Da te Current Medication? Ordering Clinician Indication Dosage Frequency Signature (SIG) Comments Components Source DULoxetine (CYMBALTA) 30 mg delayed release capsule 06-22 00:00:00 Yes Diabetic autonomic neuropathy associated with type 2 diabetes me llitus Take 2 capsules by mouth daily for 2 weeks, then take 3 capsules daily. [facility] hydrOXYzine (ATARAX) 25 mg tablet 2020-06-22 00:00:00 Yes Insomnia, unspecified type Take 1/2 to 1 tablet by mouth daily as needed for anxiety and take 1 to 2 tablets at bedtime as needed for sleep. [facility] naproxen (NAPROSYN) 500 mg tablet 2020-05-15 00:00:00 Yes Medication refill 500mg Take 1 tablet by mouth 2 times daily (with meal s). [facility] venlafaxine (EFFEXOR XR) 150 mg extended release capsule 2020-05-15 00:00:00 2020-06-22 00:00:00 No Medication refill 300mg QD Take 2 capsules by mouth daily. [facility] DULoxetine (CYMBALTA) 30 mg delayed release capsule 2020-05-15 00:00:00 2020-06-22 00:00:00 No Diabetic autonomic n europathy associated with type 2 diabetes mellitus 30mg QD Take 1 capsule by mouth daily. [facility] hydrOXYzine (ATARAX) 25 mg tablet 2020-05-15 00:00:00 2019 00:00:00 No Insomnia, unspecified type Take 1/2 to 1 tablet by mouth daily as needed for anxiety and take 1 to 2 tablets at bedtime as needed for sleep. [facility] empagliflozin (JARDIANCE) 10 mg tablet 2020-05-08 00:00:00 Yes Inadequately controlled diabetes mellitus 10mg Take 1 tablet by mouth every morning. [facility] pen needle, diabetic 31 gauge x 3/16" needles 2020-05-08 00: 00:00 Yes Poorly controlled diabetes mellitus Inject under the s kin 5 times daily. [facility] blood glucose test strips 2020-05-08 00:00:00 Yes Poorly controlled diabetes mellitus 3 times daily to test blood sugar. [facility] ketorolac (TORADOL) injection 60 mg 2020-04-27 12:15:0 0 2020-04-27 12:30:00 No Left elbow pain 60mg [facility] ravinder ibuprofen (MOTRIN) 800 mg tablet 2020-04-24 00:00:00 Yes Acute pain of left knee 800mg Take 1 tablet by mouth every 8 hours as needed for Pain. [facility] Cyclobenzaprine (FLEXERIL) 5 mg tablet 2020-04-12 3 00:00:00 2021-04-24 23:59:00 Yes Acute pain of left knee 5mg T reynold 1 tablet by mouth nightly at bedtime as needed for Muscle Spasms. [facility] mirtazapine (REMERON) 15 mg tablet 2020-04-20 00:00:00 00:00:00 No Moderate episode of recurrent major depressive disorder 15mg Take 1 tablet by mouth at bedtime nightly. [facility] venlafaxine (EFFEXOR XR) 150 mg extended release capsule 2020-04-20 00:00:2020-05-15 00:00:00 No Depression, unspecified depression typ e 300mg QD Take 2 capsules by mouth daily. [facility] hydrOXYzine (ATARAX) 25 mg tablet 2020-04-20 00:00:00 2019 00:00:00 No PTSD (post-traumatic stress disorder) Take 1/2 to 1 tablet by mouth daily as needed for anxiety and take 1 to 2 tablets at bedtime as needed for sleep. [facility] Cyclobenzaprine (FLEXERIL) 5 mg tablet 7 00:00:00 2020-04-24 00:00:00 No Acute pain of left knee 5mg T reynold 1 tablet by mouth nightly at bedtime as needed for Muscle Spasms. [facility] ibuprofen (MOTRIN) 800 mg tablet 2020-03-14 00:00:00 2020-04 00:00:00 No Acute pain of left knee 800mg Take 1 tablet by mouth every 8 hours as needed for Pain. [facility] Cyclobenzaprine (FLEXERIL) 5 mg tablet 2 00:00:00 2020-04-18 00:00:00 No Acute pain of left knee 5mg T reynold 1 tablet by mouth nightly at bedtime as needed for Muscle Spasms. [facility] ibuprofen (MOTRIN) 800 mg tablet 2020-03-14 00:00:00 2020-03 00:00:00 No Acute pain of left knee 800mg Take 1 tablet by mouth every 8 hours as needed for Pain. [facility] empagliflozin (JARDIANCE) 10 mg tablet 2020-02-11 8 00:00:00 2020-05-08 00:00:00 No Inadequately controlled diabetes mellitus 10mg Take 1 tablet by mouth every morning. [facility] venlafaxine (EFFEXOR XR) 150 mg extended release capsule 2020-02-28 00:00:00 2020-04-20 00:00:00 No Depression, unspecified depression typ e 300mg QD Take 2 capsules by mouth daily. [facility] gabapentin (NEURONTIN) 300 mg capsule 2020-02-15 00:00 :00 2020-05-15 00:00:00 No Diabetic autonomic neuropathy associated with type 1 diabetes mellitus 300mg Take 1 capsule by mouth 4 ti mes daily 1 capsule at 8:30am and 1 capsule at 2pm and 2 capsules at 8pm. [facility] naproxen (NAPROSYN) 500 mg tablet 2020-02-15 00:00:00 2019 00:00:00 No Chronic pain of both knees 500mg Take 1 tablet by mouth 2 times daily (with meals). [facility] hydrOXYzine (ATARAX) 25 mg tablet 2020-02-03 00:00:00 2019 00:00:00 No PTSD (post-traumatic stress disorder) Take 1/2 to 1 tablet by mouth daily as needed for anxiety and take 1 to 2 tablets at bedtime as needed for sleep. [facility] escitalopram (LEXAPRO) 10 mg tablet 2020-02-03 00:00:0 0 2020-02-28 00:00:00 No PTSD (post-traumatic stress disorder) Take 1/2 tablet by mouth daily for 2 weeks, then take 1 tablet daily. [facility] insulin aspart U-100 (NOVOLOG FLEXPEN) 100 unit/mL (3 mL) pe n 2020-02-02 00:00:00 Yes Poorly controlled diabetes mellitus 15U Inject 15 Units under the skin 3 times daily do not skip meals. [facility] insulin detemir U-100 (LEVEMIR FLEXTOUCH) 100 unit/mL (3 mL) Pen 2020-02-02 00:00:00 Yes Poorly controlled diabetes mellitus 35U Q.5D Inject 35 Units under the skin 2 times daily. [facility] linaGLIPtin (TRADJENTA) 5 mg tablet 2020-02-02 00:00:00 Yes Poorly controlled diabetes mellitus 5mg QD Take 1 tablet by mouth daily. [facility] pen needle, diabetic 31 gauge x 3/16" needles 20 30-01-22 00:00:00 2020-05-08 00:00:00 No Poorly controlled diabetes mellitus Inject under the skin 5 times daily. [facility] gabapentin (NEURONTIN) 300 mg capsule 2019-12-11 00:00 :00 2019-12-21 23:59:00 No Chronic pain of both knees 300mg T reynold 1 capsule by mouth 3 times daily for 10 days. [facility] naproxen (NAPROSYN) 500 mg tablet 2019-12-11 00:00:00 2019 23:59:00 No Chronic pain of both knees 500mg Take 1 tablet by mouth 2 times daily (with meals) for 10 days. [facility] clotrimazole 1 % Oint 2019-12-11 00:00:00 2019-12-21 23:59:0 0 No Tinea corporis Apply to affected area 3 times daily for 10 day s. [facility] acetaminophen-codeine (TYLENOL/CODEINE #3) 300-30 mg per tab let 2019-11-18 00:00:00 Yes Acute pain of left knee 1{tbl} Take 1 tablet by mouth every 12 hours as needed for Pain. [facility] th ibuprofen (MOTRIN) 600 mg tablet 2019-11-18 00:00:00 2020-03 00:00:00 No Acute pain of left knee 600mg Take 1 tablet by mouth every 8 hours as needed for Pain. [facility] busPIRone (BUSPAR) 10 mg tablet 2019-11-18 00:00:00 00:00:00 No Depression, unspecified depression type 10mg Take 1 tablet by mouth 3 times daily. [facility] venlafaxine (EFFEXOR XR) 150 mg extended release capsule 2019-11-18 00:00:00 2020-02-03 00:00:00 No Depression, unspecified depression typ e 300mg QD Take 2 capsules by mouth daily. [facility] naproxen (NAPROSYN) 500 mg tablet 2019-11-10 00:00:00 2019 11:32:05 No Acute pain of left knee 500mg Take 1 t ablet by mouth 2 times daily (with meals). [facility] gabapentin (NEURONTIN) 300 mg capsule 2019-11-10 00:00 :00 2019-12-11 00:00:00 No Encounter for medication refill 300mg Take 1 capsule by mouth 3 times daily [facility] blood glucose meter 2019-08-30 00:00:00 Yes Poorly controlled diabetes mellitus Use as directed.. [facility] lancets 28 gauge 2019-08-30 00:00:00 Yes Poorly controlled diabetes mellitus by MISCELLANEOUS route 3 times daily [facility] ketoconazole (NIZORAL) 2 % topical cream 2019-08-30 00:00:00 Yes Tinea corporis Q.5D Apply to affected area 2 times daily. [facility] blood glucose test strips 2019-08-30 00:00:00 2020-05-08 00: 00:00 No Poorly controlled diabetes mellitus 2 times weekly to test blood sugar. [facility] venlafaxine (EFFEXOR XR) 150 mg extended release capsule 2019-08-30 00:00:00 2020-02-03 00:00:00 No Depression, unspecified depression typ e 150mg QD Take 1 capsule by mouth daily. [facility] insulin detemir U-100 (LEVEMIR FLEXTOUCH) 100 unit/mL (3 mL) Pen 2019-08-30 00:00:00 2020-02-02 00:00:00 No Poorly controlled diabetes low litus 35U Q.5D Inject 35 Units under the skin 2 times daily. [facility] insulin aspart U-100 (NOVOLOG FLEXPEN) 100 unit/mL (3 mL) pe n 2019-08-30 00:00:00 2020-02-02 00:00:00 No Poorly controlled diabetes low litus 10U Inject 10 Units under the skin 3 times daily donot skip meals. [facility] linaGLIPtin (TRADJENTA) 5 mg tablet 2019-08-30 00:00:0 0 2020-02-02 00:00:00 No Poorly controlled diabetes mellitus 5mg QD Take 1 table t by mouth daily. [facility] acetaminophen-codeine (TYLENOL/CODEINE #3) 300-30 mg per tab let 2019-08-30 00:00:00 2019-11-18 00:00:00 No Herpes zoster without complica tion 1{tbl} Take 1 tablet by mouth every 12 hours as needed for Pain. [facility] busPIRone (BUSPAR) 10 mg tablet 2019-08-30 00:00:00 00:00:00 No Depression, unspecified depression type 10mg Take 1 tablet by mouth 3 times daily. [facility] clindamycin (CLEOCIN HCL) 300 mg capsule 2019-08 00:00:00 2019-09-09 23:59:00 No Cellulitis of back except buttock 300mg Take 1 capsule by mouth 3 times daily for 10 days. [facility] venlafaxine (EFFEXOR XR) 75 mg extended release capsule 2019-08-30 00:00:00 2019-08-30 00:00:00 No Depression, unspecified depression typ e 75mg QD Take 1 capsule by mouth daily. [facility] Rifampin Rifampin 2019-08-22 08:16:00 Yes 300 Twice A Day [facility] Sulfamethoxazole/Trimethoprim (Bactrim Ds Tablet) 1 Ea ch TABLET Sulfamethoxazole/Trimethoprim (Bactrim Ds Tablet) 1 Each TABLET 2019-08-22 08:16:00 Yes 1 Twice A Day [facility] Insulin Npl/Insulin Lispro (Humalog Mix 75-25 Kwikpen) 100 Unit/1 Ml INSULN.PEN Insulin Npl/Insulin Lispro (Humalog Mix 75-25 Kwikpen) 100 Unit/1 Ml INSULN.PEN 2019-08-22 06:54:00 Yes 40 Twice A Day [facility] Gabapentin Gabapentin 2019-08-22 06:51:00 Yes 600 Thr ee Times A Day [facility] Prednisone Prednisone 2019-08-22 06:51:00 Yes 10 Thr ee Times A Day [facility] Tramadol/Apap 37.5MG-325MG Tramadol/Apap 37.5MG-325MG 2019-08-22 06:5 1:00 Yes 1 Every 6 Hours as needed for Shingles Boom n [facility] gabapentin (NEURONTIN) 600 mg tablet 2019-08-14 00:00: 00 2019-09-15 23:59:00 No Herpes zoster without complication 600mg Take 1 tablet by mouth 3 times daily for 30 days. [facility] acetaminophen-codeine (TYLENOL/CODEINE #3) 300-30 mg per tab let 2019-08-14 00:00:00 2019-08-30 00:00:00 No Herpes zoster without complica tion 1{tbl} Take 1 tablet by mouth every 4 hours as needed for Pain. [facility] pen needle, diabetic 31 gauge x 3/16" needles 2019-07-27 00: 00:00 Yes Poorly controlled diabetes mellitus Inject under the s kin 3 times daily. [facility] blood glucose meter 2019-07-27 00:00:00 Yes Poorly controlled diabetes mellitus Use as directed.. [facility] blood glucose test strips 2019-07-27 00:00:00 Yes Poorly controlled diabetes mellitus 3 times daily. [facility] lancets 28 gauge 2019-07-27 00:00:00 Yes Poorly controlled diabetes mellitus Check blood sugar three times daily and as need ed. [facility] pen needle, diabetic 31 gauge x 3/16" needles 20 31-07-15 00:00:00 2020-02-02 00:00:00 No Poorly controlled diabetes mellitus Q.5D Inject under the skin 2 times daily. [facility] tropicamide (MYDRIACYL) 0.5 % ophthalmic solution 2019-07-27 00:00:00 2020-01-23 23:59:00 No Poorly controlled diabetes mellitus 1[ drp] Instill 1 Drop in each eye once as needed for up to 1 dose (for poor retina scan image). [facility] insulin aspart U-100 (NOVOLOG FLEXPEN) 100 unit/mL (3 mL) pe n 2019-07-27 00:00:00 2019-08-30 00:00:00 No Poorly controlled diabetes low litus 5U Inject 5 Units under the skin 3 times daily donot skip meals. [facility] venlafaxine (EFFEXOR XR) 75 mg extended release capsule 2019-07-27 00:00:00 2019-08-30 00:00:00 No Depression, unspecified depression typ e 75mg QD Take 1 capsule by mouth daily. [facility] insulin detemir U-100 (LEVEMIR FLEXTOUCH) 100 unit/mL (3 mL) Pen 2019-07-27 00:00:00 2019-08-30 00:00:00 No Poorly controlled diabetes low litus 35U Q.5D Inject 35 Units under the skin 2 times daily. [facility] gabapentin (NEURONTIN) 300 mg capsule 2019-07-27 00:00 :00 2019-08-14 00:00:00 No Herpes zoster without complication 300mg Take 1 capsule by mouth [address] or operate heavy [place] after taking gabapentin. [facility] valACYclovir (VALTREX) 1 g tablet 2019-07-27 00:00:00 2018 23:59:00 No Herpes zoster without complication 1000mg Take 1 tablet by mouth 3 times daily for 10 days. [facility] insulin detemir U-100 (LEVEMIR FLEXTOUCH) 100 unit/mL (3 mL) Pen 2019-07-27 00:00:00 2019-07-27 00:00:00 No Poorly controlled diabetes low litus 20U Q.5D Inject 20 Units under the skin 2 times daily. [facility] insulin detemir U-100 (LEVEMIR FLEXTOUCH) 100 unit/mL (3 mL) Pen 2019-07-27 00:00:00 2019-07-27 00:00:00 No Poorly controlled diabetes low litus 35U Q.5D Inject 35 Units under the skin 2 times daily. [facility] gabapentin (NEURONTIN) 300 mg capsule 2019-07-27 00:00 :00 2019-07-27 00:00:00 No Herpes zoster without complication 300mg Take 1 capsule by mouth 3 times daily. [facility] Oseltamivir Phosphate (Tamiflu) 75 Mg CAP Oseltamivir Phosphate (Tamiflu) 75 Mg CAP 2018-09-19 09:19:00 2019-08-22 00:00:00 No 75 Twic e A Day [facility] Azithromycin (Zithromax) 250 Mg TABLET Azithromycin (Zithrom ax) 250 Mg TABLET 2018-09-19 09:07:00 2019-08-22 00:00:00 No 250 Daily [facility] Acetaminophen With Codeine (Tylenol With Codeine #3 Ta blet) 1 Each TABLET Acetaminophen With Codeine (Tylenol With Codeine #3 Tablet) 1 Each TABLET 2018-03-19 08:09:00 2019-08-22 00:00:00 No 300 Every 8 Hours as needed for Prn [facility] Ciprofloxacin Hcl (Cipro) 500 Mg TABLET Ciprofloxacin Hcl (C ipro) 500 Mg TABLET 2018-03-19 08:06:00 2019-08-22 00:00:00 No 500 Every 12 Hours [facility] Minocycline Hcl Minocycline Hcl 2018-03-19 08:06:00 2019-08-22 00:00:00 No 100 Twice A Day [facility] Doxycycline Hyclate Doxycycline Hyclate 2015-02-08 06:09:00 2015-12 00:00:00 No 100 Every 12 Hours [facility] Lrt10 Lrt10 2015-02-08 06:09:00 2016-01-02 00:00:00 No 10 Daily [facility] Prednisone Prednisone 2015-02-08 06:09:00 2016-01-02 00:00:00 No 20 Every 12 Hours [facility] Famotidine (Pepcid) 20 Mg TABLET Famotidine (Pepcid) 20 Mg T ABLET 2015-02-08 06:09:00 2015-08-28 00:00:00 No 20 Twice A Day [facility] Lisinopril Lisinopril Yes 10 Daily [facility] Venlafaxine Hcl (Effexor Xr 37.5MG Capcr*) 37.5 Mg CAP CR Venlafaxine Hcl (Effexor Xr 37.5MG Capcr*) 37.5 Mg CAPCR Yes 150 for Depression [facility] Zolpidem Tartrate (Ambien) 5 Mg TABLET Zolpidem Tartrate (Ambien ) 5 Mg TABLET Yes 5 Bedtime as needed for Insomnia [facility] Citalopram Hydrobromide (Celexa) 40 Mg TABLET Citalopr am Hydrobromide (Celexa) 40 Mg TABLET 2018-03-19 00:00:00 No 50 Daily [facility] Blood Pressure Pill Blood Pressure Pill 2017-03-31 00:00:00 No [facility] Bydron Bydron 2017-02-20 00:00:00 No [facility] Trigenta Trigenta 2017-02-20 00:00:00 No 1 Daily [facility] Azithromycin (Z-Nicholas) 250 Mg TABLET Azithromycin (Z-Nicholas) 250 Mg T ABLET 2017-01-03 00:00:00 No 250 Daily [facility] Exenatide Microspheres (Bydureon) 2 Mg VIAL Exenatide Microspheres (Bydureon) 2 Mg VIAL 2017-01-03 00:00:00 No 1 Qweekly [facility] Ondansetron (Zofran Odt) 4 Mg TAB.RAPDIS Ondansetron ( Zofran Odt) 4 Mg TAB.RAPDIS 2017-01-03 00:00:00 No 4 Every 6 Hours [facility] Sertraline Hcl (Zoloft) 100 Mg TABLET Sertraline Hcl (Zoloft) 10 0 Mg TABLET 2017-01-03 00:00:00 No 100 Daily [facility] Doxycycline Hyclate Doxycycline Hyclate 2016-07-23 00:00:00 No 100 Every 12 Hours [facility] Acetaminophen With Codeine (Tylenol With Codeine #3 Ta blet) 1 Each TABLET Acetaminophen With Codeine (Tylenol With Codeine #3 Tablet) 1 Each TABLET 2016-01-19 00:00:00 No 300 Every 6 Hours [facility] Cephalexin Monohydrate (Keflex) 500 Mg CAPSULE Cephale antonino Monohydrate (Keflex) 500 Mg CAPSULE 2016-01-19 00:00:00 No 500 Three Dewayne es A Day [facility] Albuterol Sulfate Albuterol Sulfate 2016-01-02 00:00:00 No 1 Every 4 Hours as needed for Shortness Of Breath [facility] Insulin Detemir (Levemir) 100 Unit/1 Ml VIAL Insulin D etemir (Levemir) 100 Unit/1 Ml VIAL 2016-01-02 00:00:00 No 44 Daily [facility] Insulin Human Lispro (Humalog) 100 Units/Ml ML Insulin Human Lispro (Humalog) 100 Units/Ml ML 2016-01-02 00:00:00 No Daily [facility] Albuterol Sulf (Albuterol Sulfate) 4 Mg TAB Albuterol Sulf (Albuterol Sulfate) 4 Mg TAB 2014-10-10 00:00:00 No 4 Twice A Day [facility] Albuterol Sulfate (Ventolin Hfa) 18 Gm HFA.AER.AD Albu terol Sulfate (Ventolin Hfa) 18 Gm HFA.AER.AD 2014-10-10 00:00:00 No Ev rosana 4 Hours [facility] Levofloxacin (Levaquin) 500 Mg TABLET Levofloxacin (Levaquin) 50 0 Mg TABLET 2014-10-06 00:00:00 No 500 Daily [facility] Estradiol Estradiol 2014-06-05 00:00:00 No .5 Daily [facility] Atorvastatin Calcium Atorvastatin Calcium 2014-05-04 00:00:00 No 10 Daily [facility] Glimepiride Glimepiride 2014-05-04 00:00:00 No 4 D aily [facility] Lamotrigine (Lamictal) 25 Mg TAB Lamotrigine (Lamictal) 25 Mg TA B 2014-05-04 00:00:00 No 25 Daily [facility] Pioglitazone Hcl (Actos) 30 Mg TABLET Pioglitazone Hcl (Actos) 3 0 Mg TABLET 2014-05-04 00:00:00 No 30 Daily [facility] Sertraline Hcl (Zoloft) 100 Mg TABLET Sertraline Hcl (Zoloft) 10 0 Mg TABLET 2014-05-04 00:00:00 No 100 Daily [facility] Vital Signs Vital Name Observation Time Observation Value Comments Source Weight 2020-06-13 14:20:00 138 [lb_av] [facility] BMI (Body Mass Index) 2020-06-13 14:20:00 27.0 kg/m2 [facility] Systolic blood pressure 2020-04-27 11:53:00 128 mm[Hg] [facility] Diastolic blood pressure 2020-04-27 11:53:00 91 mm[Hg] [facility] Heart rate 2020-04-27 11:53:00 113 /min [facility] Body temperature 2020-04-27 11:53:00 36.89 Nanda Gabriela is [facility] Respiratory rate 2020-04-27 11:53:00 16 /min Gabriela is [facility] Body height 2020-04-27 11:53:00 157.5 cm [facility] Body weight 2020-04-27 11:53:00 66.951 kg [facility] BMI 2020-04-27 11:53:00 27.00 kg/m2 [facility] Oxygen saturation in Arterial blood by Pulse oximetry 04-27 11:53:00 99 /min [facility] Body Temperature 2019-08-22 06:42:00 96.3 [degF] [facility] Procedures Procedure Date / Time Performed Performing Clinician Jhonny shon Computed tomography of brain without radiopaque contrast 2020-06 00:00:00 [facility] DRAINAGE OF SKIN ABSCESS 2020-01-11 00:00:00 [facility] MAMMOGRAM BILAT SCREEN DIGITAL 2019-11-23 14:35:22 [facility] KNEE 4 OR MORE VIEWS (TRAUMA - AP/LAT/B OBL) 2019-11-23 11:52:[address] [facility] ALANINE AMINOTRASFERASE/ASPARTATE AMINOTRANSFERASE (AL T/AST) 2019-10-21 11:11:00 [facility] CREATININE 2019-10-21 11:11:00 GladysKiana [facility] ELECTROLYTES 2019-10-21 11:11:00 GladysKiana [facility] HEMOGLOBIN A1C 2019-10-21 11:11:[address] [facility] X[facility] SPINE THORACIC 2 VIEWS 2019-08-30 14:43:[address] [facility] Computed tomography of brain without radiopaque contrast 201 06-23-08 00:00:00 BAY URBAN [facility] DRAINAGE OF BACK SUBCU/FASCIA, OPEN APPROACH 2019-08-20 00:00:00 [facility] Computed tomography of thoracic spine with contrast [facility]:00[facility] of lumbar spine without contrast 2019-08 00:00:00 [facility] DIABETIC FOOT EXAM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 (Auto) (test code = 49312-7) 59.3 38.7-80.0 [facility] HospitalAutomated blood lymphocyte count as percentage ot total mubrytgfco7337-18-80 14:30:00* Test Item Value Reference Range Interpretation Comments Lymphocytes (%) (Auto) (test code = 736-9) 32.7 18.0-39.1 [facility] HospitalAutomated blood monocyte count as percentage of total mpovgrilmk6216-13-57 14:30:00* Test Item Value Reference Range Interpretation Comments Monocytes (%) (Auto) (test code = 5905-5) 6.3 4.4-11.3 [facility] HospitalAutomated blood eosinophil count as percentage of total rqabtasbrp1853-58-09 14:30:00* Test Item Value Reference Range Interpretation Comments Eosinophils (%) (Auto) (test code = 713-8) 0.9 0.0-6.0 [facility] HospitalAutomated blood basophil count as percentage of total ifrmcpdcvt4483-88-36 14:30:00* Test Item Value Reference Range Interpretation Comments Basophils (%) (Auto) (test code = 706-2) 0.5 0.0-1.0 [facility] HospitalFluoroscopic procedure less than one hour qyfswdga3897-29-83 14:30:00* Test Item Value Reference Range Interpretation Comments IM GRANULOCYTES % (test code = IM GRANULOCYTES %) 0.3 0.0- 1.0 [facility] HospitalAutomated blood neutrophil count 2020-06-13 14:30:00* Test Item Value Reference Range Interpretation Comments Neutrophils # (Auto) (test code = 751-8) 4.7 2.1-6.9 [facility] HospitalBlood lymphocytes count (number/volume) 2020-06-13 14:30:00* Test Item Value Reference Range Interpretation Comments Lymphocytes # (Auto) (test code = 10694-5) 2.6 1.0-3.2 [facility] HospitalBlood monocytes automated count (number/volume)2020-06-13 14:30:00* Test Item Value Reference Range Interpretation Comments Monocytes # (Auto) (test code = 742-7) 0.5 0.2-0.8 [facility] HospitalAutomated blood eosinophil count 2020-06-13 14:30:00* Test Item Value Reference Range Interpretation Comments Eosinophils # (Auto) (test code = 711-2) 0.1 0.0-0.4 [facility] HospitalAutomated blood basophil count (count/volume)2020-06-13 14:30:00* Test Item Value Reference Range Interpretation Comments Basophils # (Auto) (test code = 704-7) 0.0 0.0-0.1 [facility] HospitalFluoroscopic procedure less than one hour vxqprxur0813-70-75 14:30:00* Test Item Value Reference Range Interpretation Comments Absolute Immature Granulocyte (auto (chiquita t code = Absolute Immature Granulocyte (auto) 0.02 0-0.1 [facility] HospitalProthrombin time (PT) in platelet poor plasma by coagulation dmoyu1527-16-92 14:30:00* Test Item Value Reference Range Interpretation Comments Prothrombin Time (test code = 5902-2) 12.0 11.9-14.5 [facility] HospitalINR in Platelet poor plasma by Coagulation lvmlj0757-72-55 14:30:00* Test Item Value Reference Range Interpretation Comments Prothromb Time International Ratio (test code = 6301-6) 0.85 Oral Anticoagulant Therapy INR Values:1. Low Intensity Therapy 1.5 - 2.02 . Moderate Intensity Therapy 2.0 - 3.03. High Intensity Therapy(1) 2.5 - 3. 54. High Intensity Therapy(2) 3.0 - 4.05. Panic Value INR > 5.0 [facility] HospitalActivated partial thromboplastin time (aPTT) in platelet poor plasma by coagulation vtdyl4997-64-95 14:30:00* Test Item Value Reference Range Interpretation Comments Activated Partial Thromboplast Time (test code = 16999-7) 29.7 23.8-35.5 [facility] Hospitalerum or plasma magnesium measurement (mass/volume)2020-06-13 14:30:00* Test Item Value Reference Range Interpretation Comments Magnesium Level (test code = 22773-2) 1.7 1.3-2.1 [facility] Hospitalerum or plasma total bilirubin measurement (mass/volume)2020-06-13 14:30:00* Test Item Value Reference Range Interpretation Comments Total Bilirubin (test code = 1975-2) 0.3 0.2-1.2 [facility] HospitalFluoroscopic procedure less than one hour acbjjzpj5227-16-34 14:30:00* Test Item Value Reference Range Interpretation Comments Aspartate Amino Transf (AST/SGOT) (test code = Aspartate Amino Transf (AST/SGOT)) 11 5-34 [facility] Hospitalerum or plasma alanine aminotransferase measurement (enzymatic activity/volume)2020-06-13 14:30:00* Test Item Value Reference Range Interpretation Comments Alanine Aminotransferase (ALT/SGPT) (test code = 1742-6) 14 0-55 [facility] Hospitalerum or plasma protein measurement (mass/volume)2020-06-13 14:30:00* Test Item Value Reference Range Interpretation Comments Total Protein (test code = 2885-2) 7.7 6.5-8.1 [facility] Hospitalerum or plasma albumin measurement (mass/volume)2020-06-13 14:30:00* Test Item Value Reference Range Interpretation Comments Albumin (test code = 1751-7) 4.7 3.5-5.0 [facility] HospitalPlasma globulin measurement (mass/volume) 2020-06-13 14:30:00* Test Item Value Reference Range Interpretation Comments Globulin (test code = 11556-0) 3.0 2.3-3.5 [facility] Hospitalerum or plasma albumin/globulin mass enlip5673-04-50 14:30:00* Test Item Value Reference Range Interpretation Comments Albumin/Globulin Ratio (test code = 1759-0) 1.6 0.8-2.0 [facility] Hospitalerum or plasma alkaline phosphatase measurement (enzymatic activity/volume)2020-06-13 14:30:00* Test Item Value Reference Range Interpretation Comments Alkaline Phosphatase (test code = 6768-6) 121 40-150 [facility] Hospitalerum or plasma creatine kinase measurement (enzymatic activity/volume)2020-06-13 14:30:00* Test Item Value Reference Range Interpretation Comments Creatine Kinase (test code = 2157-6) 34 29-168 [facility] Hospitalerum or plasma creatine kinase MB measurement (mass/volume)2020-06-13 14:30:00* Test Item Value Reference Range Interpretation Comments Creatine Kinase MB (test code = 07412-1) 1.20 0-5.0 [facility] HospitalTroponin I measurement by highly sensitive enzyme uexdagiquud9304-67-29 14:30:00* Test Item Value Reference Range Interpretation Comments Troponin I (test code = 96033-3) 0.004 0-0.300 [facility] Hospitalerum or plasma thyrotropin measurement by detection limit <= 0.005 miu/l (units/volume)2020-06-13 14:30:00* Test Item Value Reference Range Interpretation Comments Thyroid Stimulating Hormone (TSH) (test code = 92669-1) 1.139 0.350-4.940 [facility] HospitalTROPONIN-R4434-93-76 22:28:00* Test Item Value Reference Range Interpretation Comments TROPONIN-I (test code = TROPI) <0.015 ng/mL 0-0.045 N BASIC METABOLIC XFVPT4931-04-62 20:54:00* Test Item Value Reference Range Interpretation Comments SODIUM (test code = NA) 131 mmol/L 136-145 L POTASSIUM (test code = K) 4.8 mmol/L 3.5-5.1 N CHLORIDE (test code = CL) 96.0 mmol/L 98-107 L CARBON DIOXIDE (test code = CO2) 28.0 mmol/L 21-32 N ANION GAP (test code = GAP) 11.8 10-20 N GLUCOSE (test code = GLU) 576 mg/dL 74-106 [facility] sults called to [id number] by V.[email or web address].[email or web address] 02/21/204Critical results verified and read [...] CA) 9.6 mg/dL 8.5-10.1 N HEPATIC FUNCTION ZKMIA7173-60-81 20:54:00* Test Item Value Reference Range Interpretation [...] reference range due to change in reagent. CWWSOOZSC5184-45-28 20:54:00* Test Item Value Reference Range Interpretation Comments MAGNESIUM (test code = MAG) 1.9 mg/dL 1.8-2.4 N MWVXSGEF-V7630-99-11 20:54:00* Test Item Value Reference Range Interpretation Comments TROPONIN-I (test code = TROPI) <0.015 ng/mL 0-0.045 N - US ABDOMEN [id number] 20:24:00 Name: YOLETTE URIBE [facility] : 1975 Age/S: 44 / F [facility] Unit #: [id number] Loc: [place] [address] Phys: Jose Luis Zapata MD Acct: [id number] Dis Date: Status: REG ER PHONE #: [phone] Exam Date: 02/21/20202016 FAX #: [phone] Reason: epgiastric pain EXAMS: CPT CODE: [id number] US ABDOMEN LTD 58484 EXAM: Ultrasound of the abdomen, limited; INFORMATION: [...] Jose Luis Zapata MD Technologist: [facility] Date[facility]Time: 02/21/2020 (2023) EdwigeGRW Orig Print D/T: S: 02/21/2020 (2026) Probe: PAGE 1 Signed Report PROTHROMBIN [id number] 20:16:00* Test Item Value Reference Range Interpretation [...] (2.5-3.5) IS PATIENT ON ANTICOAGULANTS? NTHROMBOPLASTIN TIME KJHGRVF9063-16-28 20:16:00* Test Item Value Reference Range Interpretation Comments THROMBOPLASTIN TIME PARTIAL (test code = PTT) 29.8 seconds 23.0-37. 0 N IS PATIENT ON ANTICOAGULANTS? [id number]-[id number] 20:16:00* Test Item Value Reference Range Interpretation [...] - IS PATIENT ON ANTICOAGULANTS? NBASIC METABOLIC QSKET6331-71-78 20:13:00* Test Item Value Reference Range Interpretation [...] code = CA) mg/dL 8.5-10.1 HEPATIC FUNCTION PAOFX5583-80-82 20:13:00* Test Item Value Reference Range Interpretation [...] TOTAL (test code = ALKP) IUnit/L 45-117 JUPEDXENA8414-63-61 20:13:00* Test Item Value Reference Range Interpretation Comments MAGNESIUM (test code = MAG) mg/dL 1.8-2.4 GKWKTHVG-Q7148-23-11 20:13:00* Test Item Value Reference Range Interpretation Comments TROPONIN-I (test code = TROPI) ng/mL 0-0.045 SVSXNR2954-03-48 20:13:00* Test Item Value Reference Range Interpretation Comments LIPASE (test code = LIP) 229 U/L 73.0-393.0 N CBC W/O TAWC3143-40-69 20:06:00* Test Item Value Reference Range Interpretation [...] fL 6.7-11.0 H - XR CHEST 1 [id number] 19:47:00 FAX: Lamberto Major III [place]: B St: REG FAX: Jose Luis Zapata MD Name: YOLETTE URIBE [facility] ([place], [place]) : 1975 Age/S: 44/F [address] [facility] Unit #: [id number] Loc: [place] [address] Phys: Jose Luis Zapata MD Acct: [id number] Dis Date: Status: REG ER PHONE #: [phone] Exam Date: 02/21/20201927 FAX #: [phone] Reason: CHEST PAIN EXAMS: CPT CODE: [id number] XR CHEST 1 V 98721 EXAM: Chest X-ray, 1 view; CLINICAL HISTORY: Chest pain; FINDINGS: The lungs are clear, no infiltrates, no edema; no effusions; no pneumothorax; normal cardiomediastinal silhouette. No change compared with a study from June 12, 2018. IMPRESSION: Normal chest x-ray. Location code: [facility] at 1946 Reported and signed by: Jak Miller M.D. CC: Lamberto Shrestha III, MD; Jose Luis Zapata MD Technologist: LIDIA SILVA(R) Trnscrd Date/Time/By: 02/21/2020 (1946) : By: EdwigeGRW Orig Print D/T: S: 02/21/2020 (1949) PAGE 1 Signed Report Bedside Nsphawt9962-11-08 15:26:00* Test Item Value Reference Range Interpretation Comments Bedside Glucose (test code = 04423-6) 339 70-120 H Meter ID: [id number] Methodist Willowbrook HospitalHAND 3+ VIEWS LEFT 2020-01-11 14:28:00 [facility] [address] [address] Patient Name: YOLETTE URIBE MR #: [id number] : 1975 Age/Sex: 44/F Req #: [id number] Adm Physician: Ordered by: GAUTAM ISABEL MD Report #: [id number] Location: ER Room/Bed: Procedure: [id number] DX/ HAND 3+ VIEWS LEFT Exam Date: 01/11/20 Exam Time: 14 09 REPORT STATUS: Signed EXAMINA TION: HAND 3+ [...] 1431 COPY TO: GAUTAM ISABEL MD Sodium Hgmqk6920-18-31 14:09:00* Test Item Value Reference Range Interpretation Comments Sodium Level (test code = 2951-2) 134 136-145 L [facility] HospitalPotassium Wxhnv0606-30-71 14:09:00* Test Item Value Reference Range Interpretation Comments Potassium Level (test code = 2823-3) 3.6 3.5-5.1 [facility] HospitalChloride Hruua6456-72-90 14:09:00* Test Item Value Reference Range Interpretation Comments Chloride Level (test code = 2075-0) 97 98-107 L [facility] HospitalCarbon Dioxide Yepyg4300-95-78 14:09:00* Test Item Value Reference Range Interpretation Comments Carbon Dioxide Level (test code = 2028-9) 24 - [facility] HospitalAnion Xgj4564-61-04 14:09:00* Test Item Value Reference Range Interpretation Comments Anion Gap (test code = 15407-5) 16.6 8-16 H [facility] HospitalBlood Urea Buvltxip1505-90-04 14:09:00* Test Item Value Reference Range Interpretation Comments Blood Urea Nitrogen (test code = 3094-0) 11 7-26 [facility] HospitalCreatinine2020-03-31 14:09:00* Test Item Value Reference Range Interpretation Comments Creatinine (test code = 2160-0) 0.85 0.57-1.11 [facility] HospitalBUN/Creatinine Sezui9392-70-21 14:09:00* Test Item Value Reference Range Interpretation Comments BUN/Creatinine Ratio (test code = 3097-3) 13 6- [facility] HospitalEstimat Glomerular Filtration Rate 2020-01-11 14:09:00* Test Item Value Reference Range Interpretation Comments Estimat Glomerular Filtration Rate (test code = 388356150) > 60 >60 Ranges were taken from the National Kidney Disease Education Program and the [facility] Kid[facility] Foundation literature.Reference ranges:60 or greater: Xhkezn77-57 ( for 3 consecutive months): Chronic kidney disease 15 or less: Kidney failureHouston Methodist Willowbrook HospitalGlucose Horbu3424-32-96 14:09:00* Test Item Value Reference Range Interpretation Comments Glucose Level (test code = GPY7344) 526 74-118 HH Results repeated and called to CHANDAN GUTIERREZ at 1408 on 01/11/20 by MARIEL MELISSA . Read back and verified.[facility] HospitalCalcium Level 2020-01-11 14:09:00* Test Item Value Reference Range Interpretation Comments Calcium Level (test code = 37939-8) 9.6 8.4-10.2 [facility] HospitalTotal Jwjkslinr7556-65-93 14:09:00* Test Item Value Reference Range Interpretation Comments Total Bilirubin (test code = 1975-2) 0.3 0.2-1.2 [facility] HospitalAspartate Amino Transf (AST/SGOT) 2020-01-11 14:09:00* Test Item Value Reference Range Interpretation Comments Aspartate Amino Transf (AST/SGOT) (test code = Aspartate Amino Transf (AST/SGOT)) 19 5-34 [facility] HospitalAlanine Aminotransferase (ALT/SGPT) 2020-01-11 14:09:00* Test Item Value Reference Range Interpretation Comments Alanine Aminotransferase (ALT/SGPT) (test code = 1742-6) 20 0-55 [facility] HospitalTotal Wwszjsy8200-80-59 14:09:00* Test Item Value Reference Range Interpretation Comments Total Protein (test code = 2885-2) 7.1 6.5-8.1 [facility] HospitalAlbumin2020-03-31 14:09:00* Test Item Value Reference Range Interpretation Comments Albumin (test code = 1751-7) 3.4 3.5-5.0 L [facility] HospitalGlobulin2020-03-31 14:09:00* Test Item Value Reference Range Interpretation Comments Globulin (test code = 75932-9) 3.7 2.3-3.5 H [facility] HospitalAlbumin/Globulin Hjuvk3645-11-13 14:09:00 * Test Item Value Reference Range Interpretation Comments Albumin/Globulin Ratio (test code = 1759-0) 0.9 0.8-2.0 [facility] HospitalAlkaline Svrwotzhdsr8424-55-60 14:09:00* Test Item Value Reference Range Interpretation Comments Alkaline Phosphatase (test code = 6768-6) 160 40-150 H [facility] HospitalWhite Blood Dqfvq1354-59-02 13:56:00* Test Item Value Reference Range Interpretation Comments White Blood Count (test code = 6690-2) 15.13 4.8-10.8 H [facility] HospitalRed Blood Hfzcp2929-43-87 13:56:00* Test Item Value Reference Range Interpretation Comments Red Blood Count (test code = 789-8) 5.05 3.6-5.1 [facility] HospitalHemoglobin2020-03-31 13:56:00* Test Item Value Reference Range Interpretation Comments Hemoglobin (test code = 33018-0) 14.9 12.0-16.0 [facility] HospitalHematocrit2020-03-31 13:56:00* Test Item Value Reference Range Interpretation Comments Hematocrit (test code = 4544-3) 42.7 34.2-44.1 [facility] HospitalMean Corpuscular Uahfli3454-42-22 13:56:00* Test Item Value Reference Range Interpretation Comments Mean Corpuscular Volume (test code = 787-2) 84.6 81-99 [facility] HospitalMean Corpuscular Sjtosrddoo9023-75-32 13:56:00* Test Item Value Reference Range Interpretation Comments Mean Corpuscular Hemoglobin (test code = 785-6) 29.5 28-32 [facility] HospitalMean Corpuscular Hemoglobin Concent 2020-01-11 13:56:00* Test Item Value Reference Range Interpretation Comments Mean Corpuscular Hemoglobin Concent (test code = 786-4) 34.9 31-35 [facility] HospitalRed Cell Distribution Srbue3826-53-80 13:56:00* Test Item Value Reference Range Interpretation Comments Red Cell Distribution Width (test code = 59196-9) 12.3 11.7 -14.4 [place] [facility] HospitalPlatelet Cddhr4825-24-93 13:56:00* Test Item Value Reference Range Interpretation Comments Platelet Count (test code = 777-3) 309 140-360 [facility] HospitalNeutrophils (%) (Auto)2020-01-11 13:56:00 * Test Item Value Reference Range Interpretation Comments Neutrophils (%) (Auto) (test code = 68202-4) 76.5 38.7-80.0 [facility] HospitalLymphocytes (%) (Auto)2020-01-11 13:56:00 * Test Item Value Reference Range Interpretation Comments Lymphocytes (%) (Auto) (test code = 736-9) 16.9 18.0-39.1 L [facility] HospitalMonocytes (%) (Auto)2020-01-11 13:56:00* Test Item Value Reference Range Interpretation Comments Monocytes (%) (Auto) (test code = 5905-5) 5.5 4.4-11.3 [facility] HospitalEosinophils (%) (Auto)2020-01-11 13:56:00 * Test Item Value Reference Range Interpretation Comments Eosinophils (%) (Auto) (test code = 713-8) 0.3 0.0-6.0 [facility] HospitalBasophils (%) (Auto)2020-01-11 13:56:00* Test Item Value Reference Range Interpretation Comments Basophils (%) (Auto) (test code = 706-2) 0.3 0.0-1.0 [facility] HospitalIM GRANULOCYTES %2020-01-11 13:56:00* Test Item Value Reference Range Interpretation Comments IM GRANULOCYTES % (test code = IM GRANULOCYTES %) 0.5 0.0- 1.0 [facility] HospitalNeutrophils # (Auto)2020-01-11 13:56:00* Test Item Value Reference Range Interpretation Comments Neutrophils # (Auto) (test code = 751-8) 11.6 2.1-6.9 H [facility] HospitalLymphocytes # (Auto)2020-01-11 13:56:00* Test Item Value Reference Range Interpretation Comments Lymphocytes # (Auto) (test code = 75155-8) 2.6 1.0-3.2 [facility] HospitalMonocytes # (Auto)2020-01-11 13:56:00* Test Item Value Reference Range Interpretation Comments Monocytes # (Auto) (test code = 742-7) 0.8 0.2-0.8 [facility] HospitalEosinophils # (Auto)2020-01-11 13:56:00* Test Item Value Reference Range Interpretation Comments Eosinophils # (Auto) (test code = 711-2) 0.0 0.0-0.4 [facility] HospitalBasophils # (Auto)2020-01-11 13:56:00* Test Item Value Reference Range Interpretation Comments Basophils # (Auto) (test code = 704-7) 0.1 0.0-0.1 [facility] HospitalAbsolute Immature Granulocyte (auto 2020-01-11 13:56:00* Test Item Value Reference Range Interpretation Comments Absolute Immature Granulocyte (auto (chiquita t code = Absolute Immature Granulocyte (auto) 0.07 0-0.1 [facility] HospitalCoronavirus (PCR)2020-01-04 06:12:00* Test Item Value Reference Range Interpretation Comments Coronavirus (PCR) (test code = Coronavirus (PCR)) NOT DETECTED NOTD ETECTED CORONAVIRUS ZWPV-HLD-1-RT-PCR (RESPIRATORY)This test has been validated but FDA' s independent review of the validation is pending. This test is performed as a l aboratory developed test; independent review of the validation under FDA's Emerg ency Use Authorization (EUA) authority will be performed according to current [facility] requirements.We will continue to follow federal and state requirements fo r both notification of results and confirmatory testing that is required by [facility] her agency.This test was developed and its performance characteristics determine d by [employer]. It has not been cleared or approved by the U.S. Food and Drug Administration. Results should be used in conjunction with clinical finding s, and should not form the sole basis for a diagnosis or treatment decision.Spec imen sent to [facility] and performed at [facility], [address] [place] [address]. [id number] [facility] HospitalChlamydia pneumoniae DNA (PCR)2020-01-01 05:49:00* Test Item Value Reference Range Interpretation Comments Chlamydia pneumoniae DNA (PCR) (test code = Chlamydia pneumoniae DNA (PCR)) NOT DETECTED NOT DETECT Test performed at [facility] [place] [address]RESULTS HAVE BEEN [facility]ED [facility]Influenza Type A (RT-PCR)2020-01-01 05:49:00* Test Item Value Reference Range Interpretation Comments Influenza Type A (RT-PCR) (test code = 435372717) NOT DETECTED NOT DETECT [facility] HospitalMycoplasma pneumoniae (PCR)2020-01-01 05:49:00* Test Item Value Reference Range Interpretation Comments Mycoplasma pneumoniae (PCR) (test code = Mycoplasma pn eumoniae (PCR)) NOT DETECTED NOT DETECT [facility] HospitalInfluenza Type B (RT-PCR)2020-01-01 05:49:00* Test Item Value Reference Range Interpretation Comments Influenza Type B (RT-PCR) (test code = 220306931) NOT DETECTED NOT DETECT [facility] HospitalRespiratory Syncytial Virus (PCR) 2020-01-01 05:49:00* Test Item Value Reference Range Interpretation Comments Respiratory Syncytial Virus (PCR) (test code = 102139990) NO T DETECTED NOT DETECT [facility] HospitalBordetella pertussis DNA (PCR)2020-01-01 05:49:00* Test Item Value Reference Range Interpretation Comments Bordetella pertussis DNA (PCR) (test code = 599064690) NOT DETEC ROXANE NOT DETECT [facility] HospitalParainfluenza Type 1 (PCR)2020-01-01 05:49:00* Test Item Value Reference Range Interpretation Comments Parainfluenza Type 1 (PCR) (test code = 141499019) NOT DETECTED NOT DETECT [facility] HospitalParainfluenza Type 2 (PCR)2020-01-01 05:49:00* Test Item Value Reference Range Interpretation Comments Parainfluenza Type 2 (PCR) (test code = 657107211) NOT DETECTED NOT DETECT [facility] HospitalParainfluenza Type 3 (PCR)2020-01-01 05:49:00* Test Item Value Reference Range Interpretation Comments Parainfluenza Type 3 (PCR) (test code = 038981708) NOT DETECTED NOT DETECT [facility] HospitalParainfluenza Type 4 (PCR)2020-01-01 05:49:00* Test Item Value Reference Range Interpretation Comments Parainfluenza Type 4 (PCR) (test code = Parainfluenza Type 4 (PCR)) NOT DETECTED NOT DETECT [facility] HospitalRhinovirus (PCR)2020-01-01 05:49:00* Test Item Value Reference Range Interpretation Comments Rhinovirus (PCR) (test code = 798457486) NOT DETECTED NOT DETECT [facility] HospitalHuman Metapneumovirus (PCR)2020-01-01 05:49:00* Test Item Value Reference Range Interpretation Comments Human Metapneumovirus (PCR) (test code = 580094986) NOT DETECTED NO T DETECT [facility] HospitalAdenovirus (PCR)2020-01-01 05:49:00* Test Item Value Reference Range Interpretation Comments Adenovirus (PCR) (test code = 880568754) NOT DETECTED NOT DETECT [facility] HospitalCoronavirus Type HKU1 (PCR)2020-01-01 05:49:00* Test Item Value Reference Range Interpretation Comments Coronavirus Type HKU1 (PCR) (test code = Coronavirus T ype HKU1 (PCR)) NOT DETECTED NOT DETECT [facility] HospitalCoronavirus Type NL63 (PCR)2020-01-01 05:49:00* Test Item Value Reference Range Interpretation Comments Coronavirus Type NL63 (PCR) (test code = Coronavirus T ype NL63 (PCR)) NOT DETECTED NOT DETECT [facility] HospitalCoronavirus Type OC43 (PCR)2020-01-01 05:49:00* Test Item Value Reference Range Interpretation Comments Coronavirus Type OC43 (PCR) (test code = Coronavirus T ype OC43 (PCR)) NOT DETECTED NOT DETECT [facility] HospitalCoronavirus Type 229E (PCR)2020-01-01 05:49:00* Test Item Value Reference Range Interpretation Comments Coronavirus Type 229E (PCR) (test code = Coronavirus T ype 229E (PCR)) NOT DETECTED NOT DETECT Test performed at [address] [address]RESULTS HAVE BEEN CALLED TO THE PHYSICIANHouston [facility] HospitalDifferential Total Cells Ymnfhqa0280-19-43 21:02:00* Test Item Value Reference Range Interpretation Comments Differential Total Cells Counted (test code = Differen tial Total Cells Counted) 100 [facility] HospitalNeutrophils % (Manual)2019-12-31 21:02:00 * Test Item Value Reference Range Interpretation Comments Neutrophils % (Manual) (test code = 92416-4) 61 40-74 [facility] HospitalBand Neutrophils %2019-12-31 21:02:00* Test Item Value Reference Range Interpretation Comments Band Neutrophils % (test code = 764-1) 2 [facility] HospitalLymphocytes % (Manual)2019-12-31 21:02:00 * Test Item Value Reference Range Interpretation Comments Lymphocytes % (Manual) (test code = 737-7) 22 19-48 [facility] HospitalMonocytes % (Manual)2019-12-31 21:02:00* Test Item Value Reference Range Interpretation Comments Monocytes % (Manual) (test code = 744-3) 6 3.4-9.0 [facility] HospitalEosinophils % (Manual)2019-12-31 21:02:00 * Test Item Value Reference Range Interpretation Comments Eosinophils % (Manual) (test code = 714-6) 1 0-7 [facility] HospitalMetamyelocytes %2019-12-31 21:02:00* Test Item Value Reference Range Interpretation Comments Metamyelocytes % (test code = 740-1) 1 0-0 H [facility] HospitalMyelocytes %2019-12-31 21:02:00* Test Item Value Reference Range Interpretation Comments Myelocytes % (test code = 749-2) 1 0-0 H [facility] HospitalReactive Tcuaqiiyfve7799-51-56 21:02:00* Test Item Value Reference Range Interpretation Comments Reactive Lymphocytes (test code = 14895-9) 6 [facility] HospitalPlatelet Qljhvagb2928-43-67 21:02:00* Test Item Value Reference Range Interpretation Comments Platelet Estimate (test code = 08534-1) ADEQUATE [facility] HospitalPlatelet Morphology Qihvsee5596-71-00 21:02:00* Test Item Value Reference Range Interpretation Comments Platelet Morphology Comment (test code = 25432-1) NORMAL [facility] HospitalRed Cell Morphology Jcoppib9727-12-63 21:02:00* Test Item Value Reference Range Interpretation Comments Red Cell Morphology Comment (test code = 6742-1) NORMAL [facility] HospitalCreatine Kqapoq5775-34-49 15:18:00* Test Item Value Reference Range Interpretation Comments Creatine Kinase (test code = 2157-6) 24 29-168 L [facility] HospitalCreatine Kinase DL9375-31-51 15:18:00* Test Item Value Reference Range Interpretation Comments Creatine Kinase MB (test code = 33168-8) 0.30 0-5.0 [facility] HospitalTroponin N9184-11-30 15:18:00* Test Item Value Reference Range Interpretation Comments Troponin I (test code = GHA9490) 0.001 0-0.300 [facility] HospitalGroup A Streptococcus Pqjpln8080-85-80 14:57:00* Test Item Value Reference Range Interpretation Comments Group A Streptococcus Screen (test code = 24703-7) NEGATIVE NEG ATIVE [facility] Hospitaltrept[facility] pyogenes antigen detection in vdxdcb9735-80-84 14:37:00* Test Item Value Reference Range Interpretation Comments Group A Streptococcus Screen (test code = 40468-5) NEGATIVE NEG ATIVE [facility] HospitalFluoroscopic procedure less than one hour fmaimgnb6464-43-92 13:25:00* Test Item Value Reference Range Interpretation Comments Differential Total Cells Counted (test code = Amanda tial Total Cells Counted) 100 [facility] blood neutrophils/100 leukocytes 2019-12-31 13:25:00* Test Item Value Reference Range Interpretation Comments Neutrophils % (Manual) (test code = 25276-3) 61 40-74 [facility] blood band neutrophils form/100 lbscgozurl0565-38-13 13:25:00* Test Item Value Reference Range Interpretation Comments Band Neutrophils % (test code = 764-1) 2 [facility] blood lymphocytes/100 leukocytes 2019-12-31 13:25:00* Test Item Value Reference Range Interpretation Comments Lymphocytes % (Manual) (test code = 737-7) 22 19-48 [facility] blood monocytes/100 leukocytes 2019-12-31 13:25:00* Test Item Value Reference Range Interpretation Comments Monocytes % (Manual) (test code = 744-3) 6 3.4-9.0 [facility] blood eosinophil count as percentage of total dvkvohzemh3004-31-74 13:25:00* Test Item Value Reference Range Interpretation Comments Eosinophils % (Manual) (test code = 714-6) 1 0-7 [facility] blood metamyelocytes/100 waiyhbkryr9520-28-13 13:25:00* Test Item Value Reference Range Interpretation Comments Metamyelocytes % (test code = 740-1) 1 0-0 [facility] blood myelocytes/100 leukocytes 2019-12-31 13:25:00* Test Item Value Reference Range Interpretation Comments Myelocytes % (test code = 749-2) 1 0-0 [facility] lymphocytes variant count (number/volume)2019-12-31 13:25:00* Test Item Value Reference Range Interpretation Comments Reactive Lymphocytes (test code = 50907-5) 6 [facility] HospitalBlood platelets count by estimate (number/volume)2019-12-31 13:25:00* Test Item Value Reference Range Interpretation Comments Platelet Estimate (test code = 58740-9) ADEQUATE [facility] HospitalPlatelet hcftrvqfhp1598-67-23 13:25:00* Test Item Value Reference Range Interpretation Comments Platelet Morphology Comment (test code = 68526-1) NORMAL [facility] HospitalRB xtjrjgehal9428-58-44 13:25:00* Test Item Value Reference Range Interpretation Comments Red Cell Morphology Comment (test code = 6742-1) NORMAL [facility] HospitalCHEST SINGLE (PORTABLE)2019-12-31 13:13:00 [place] [address] Patient Name: YOLETTE URIBE MR #: [id number] : 1975 Age/Sex: 44/F Req #: [id number] Adm Physician: Ordered by: ROSARIO MORENO [employer] Report #: [id number] Location: ER Room/Bed: Procedure: [id number] DX /CHEST SINGLE (PORTABLE) Exam Date: 12/31/19 [...] 1:13 PM Dictated By: KIN OTERO MD 12 Transcribed By: JEMAL on 12/31/19 1313 C OPY TO: ROSARIO MORENO NP Fluoroscopic procedure less than one hour vxvwpmvk1705-07-31 13:00:00* Test Item Value Reference Range Interpretation Comments Chlamydia pneumoniae DNA (PCR) (test code = Chlamydia pneumoniae DNA (PCR)) NOT DETECTED NOT DETECT Test performed at [place] [address]RESULTS HAVE BEEN [facility]ED [facility]Respiratory virus hpklz8544-11-99 13:00:00* Test Item Value Reference Range Interpretation Comments Influenza Type A (RT-PCR) (test code = 307252192) NOT DETECTED NOT DETECT [facility] HospitalFluoroscopic procedure less than one hour saqerydn3641-23-74 13:00:00* Test Item Value Reference Range Interpretation Comments Mycoplasma pneumoniae (PCR) (test code = Mycoplasma pn eumoniae (PCR)) NOT DETECTED NOT DETECT [facility] HospitalRespiratory virus xodzo7488-49-15 13:00:00* Test Item Value Reference Range Interpretation Comments Influenza Type B (RT-PCR) (test code = 787503377) NOT DETECTED NOT DETECT [facility] HospitalRespiratory virus frdxm8909-85-37 13:00:00* Test Item Value Reference Range Interpretation Comments Respiratory Syncytial Virus (PCR) (test code = 953554126) NO T DETECTED NOT DETECT [facility] HospitalRespiratory virus stbxh8955-63-19 13:00:00* Test Item Value Reference Range Interpretation Comments Bordetella pertussis DNA (PCR) (test code = 553415404) NOT DETEC ROXANE NOT DETECT [facility] HospitalRespiratory virus ssljj3763-93-19 13:00:00* Test Item Value Reference Range Interpretation Comments Parainfluenza Type 1 (PCR) (test code = 804081618) NOT DETECTED NOT DETECT [facility] HospitalRespiratory virus qqtos6513-85-77 13:00:00* Test Item Value Reference Range Interpretation Comments Parainfluenza Type 2 (PCR) (test code = 211446533) NOT DETECTED NOT DETECT [facility] HospitalRespiratory virus bkmdo1228-56-14 13:00:00* Test Item Value Reference Range Interpretation Comments Parainfluenza Type 3 (PCR) (test code = 212635093) NOT DETECTED NOT DETECT [facility] HospitalFluoroscopic procedure less than one hour mlaffgko4481-71-55 13:00:00* Test Item Value Reference Range Interpretation Comments Parainfluenza Type 4 (PCR) (test code = Parainfluenza Type 4 (PCR)) NOT DETECTED NOT DETECT [facility] HospitalRespiratory virus pxcty3229-46-44 13:00:00* Test Item Value Reference Range Interpretation Comments Rhinovirus (PCR) (test code = 674153485) NOT DETECTED NOT DETECT [facility] HospitalRespiratory virus lutzu8009-23-66 13:00:00* Test Item Value Reference Range Interpretation Comments Human Metapneumovirus (PCR) (test code = 736868163) NOT DETECTED NO T DETECT [facility] HospitalRespiratory virus bwgyq7221-59-77 13:00:00* Test Item Value Reference Range Interpretation Comments Adenovirus (PCR) (test code = 101865346) NOT DETECTED NOT DETECT [facility] HospitalFluoroscopic procedure less than one hour ybmdmdfa9693-13-21 13:00:00* Test Item Value Reference Range Interpretation Comments Coronavirus Type 229E (PCR) (test code = Coronavirus T ype 229E (PCR)) NOT DETECTED NOT DETECT Test performed at [facility] [place] [address] 7 [address]RESULTS HAVE BEEN CALLED TO THE PHYSICIANHouston [facility] HospitalFluoroscopic procedure less than one hour ybwkyyxo7976-81-40 13:00:00* Test Item Value Reference Range Interpretation Comments Coronavirus Type HKU1 (PCR) (test code = Coronavirus T ype HKU1 (PCR)) NOT DETECTED NOT DETECT [facility] HospitalFluoroscopic procedure less than one hour qumiympu2741-78-60 13:00:00* Test Item Value Reference Range Interpretation Comments Coronavirus Type NL63 (PCR) (test code = Coronavirus T ype NL63 (PCR)) NOT DETECTED NOT DETECT [facility] HospitalFluoroscopic procedure less than one hour kyzlahwj9910-86-55 13:00:00* Test Item Value Reference Range Interpretation Comments Coronavirus Type OC43 (PCR) (test code = Coronavirus T ype OC43 (PCR)) NOT DETECTED NOT DETECT [facility] HospitalFluoroscopic procedure less than one hour mladkvlq9800-13-86 13:00:00* Test Item Value Reference Range Interpretation Comments Coronavirus (PCR) (test code = Coronavirus (PCR)) NOT DETECTED NOTD ETECTED CORONAVIRUS IHTE-UMO-0-RT-PCR (RESPIRATORY)This test has been validated but FDA' s independent review of the validation is pending. This test is performed as a l aboratory developed test; independent review of the validation under FDA's Emerg ency Use Authorization (EUA) authority will be performed according to current gu idance requirements.We will continue to follow federal and state requirements fo r both notification of results and confirmatory testing that is required by anot her agency.This test was developed and its performance characteristics determine d by [employer]. It has not been cleared or approved by the U.S. Food and Drug Administration. Results should be used in conjunction with clinical finding s, and should not form the sole basis for a diagnosis or treatment decision.Spec imen sent to [facility] and performed at [facility], [address] [place] [address], [place], [place]. [address]QZN [facility] HospitalInfluenza Virus Types A,B Rhljtbt9069-49-18 11:26:00* Test Item Value Reference Range Interpretation Comments Influenza Virus Types A,B Antigen (test code = 04388-1) NEGATIVE NEGATIVE [facility] HospitalInfluenza virus A and B antigen identification by oozyfarwxnowluirmm3141-58-04 10:49:00* Test Item Value Reference Range Interpretation Comments Influenza Virus Types A,B Antigen (test code = 78859-4) NEGATIVE NEGATIVE [facility] HospitalXRAY KNEE 4 OR MORE VIEWS (TRAUMA - AP/LAT/B OBL)2019-11-23 14:43:15IMPRESSION:Mild tricompartmental degenerative arthrosis. No osseous erosion. Signed By: Yaazn Terrazas MD, 11/23/2019 2:43 PM Interface, Rad/Mammog In - 11/23/2019 2:48 PM CSTExam: Radiographs of the left knee History: PainComparison: None.DISCUSSION: No fracture or dislocation. Mild tricompartmentaldegenerative arthrosis. No osseous erosion. No abnormal soft tissuecalcification or soft tissue defect. IMPRESSIONIMPRESSION:Mild tricompartmental degenerative arthrosis. No osseous erosion.Signed By: Yazan Terrazas MD, 11/23/2019 2:43 PMHarrehob[facility] HealthMAMMOGRAM BILAT SCREEN QXQTJAW1744-25-03 14:41:00IMPRESSION: BENIGNThere is no mammographic evidence of malignancy. A 1 year screening mammogram is recommended. I have reviewed the study and agree with the findings in the report. This document has been electronically signed. Katie Sanders M.D.paresh connor/masood:11/23/2019 14:41:39 [employer] Team Member: Bethany Boles, [facility] Campusletter sent: Benign Exam Mammogram BI-RADS: 2 Benign G0202 z12.31Interface, Rad/Mammog In - 11/23/2019 3:10 PM TRANSITION MGR RN#[id number] - MAMMOGRAM BILAT SCREEN DIGITALBILATERAL DIGITAL SCREENING [...] in the report.This document has been electronically signed.Katie Sanders M.D.ks,paresh/penrad:11/23/2019 14:41:39 [employer] Team Member: Bethany Boles, [facility] Campusletter sent: Benign Exam Mammogram BI-RADS: 2 Benign G0202 z12.31[facility] LEFT THREE CZKID2359-66-96 10:47:00 [place] [address] Patient Name: YOLETTE URIBE MR #: [id number] : 1975 Age/Sex: 44/F Req #: [id number] Adm Physician: Ordered by: CHEIKH PIKE MD Report #: [id number] Location: ER Room/Bed: Procedure: [id number] DX/KNEE LEFT THREE VIEWS Exam Date: 10/10/19 [...] COPY TO: CHEIKH PIKE MD FOOT RIGHT EURYRZMC1393-68-69 10:43:00 [place] [address] Patient Name: YOLETTE URIBE MR #: [id number] : 1975 Age/Sex: 44/F Req #: [id number] Adm Physician: Ordered by: CHEIKH PIKE MD Report #: [id number] Location: ER Room/Bed: Procedure: [id number] DX/FOOT RIGHT COMPLETE Exam Date: 10/10/19 Exam [...] 10:47 AM Dictated By: BRYAN NICOLE MD 1047 Transcribed By: JEMAL on 1046 COPY TO: CHEIKH PIKE MD ANKLE 3 + VIEWS RIGHT 2019-10-10 10:43:00 [facility] [address] [place] [address] Patient Name: YOLETTE URIBE MR #: [id number] : 1975 Age/Sex: 44/F Req #: [id number] Adm Physician: Ordered by: CHEIKH PIKE MD Report #: [id number] Location: ER Room/Bed: Procedure: [id number] DX/ANKLE 3 + VIEWS RIGHT Exam Date: [...] on 10/10/19 1047 Transcribed By: JEMAL on 1047 COPY TO: CHEIKH PIKE MD LOWER LEG DCOIY1310-58-55 10:43:00 [place] [address] [place], [place] [address] Patient Name: YOLETTE URIBE MR #: [id number] : 1975 Age/Sex: 44/F Req #: [id number] Adm Physician: Ordered by: CHEIKH PIKE MD Report #: [id number] Location: ER Room/Bed: Procedure: [id number] DX/LOWER LEG RIGHT Exam Date: 10/10/19 Exam [...] RIGHT THREE VIEWS 2019-10-10 10:43:00 [place] [address] Patient Name: YOLETTE URIBE MR #: [id number] : 1975 Age/Sex: 44/F Req #: [id number] Adm Physician: Ordered by: CHEIKH PIKE MD Report #: [id number] Location: ER Room/Bed: Procedure: [id number] DX/KNEE RIGHT THREE VIEWS Exam Date: 10/10/19 [...] lly Signed By: BRYAN NICOLE MD on 10/10/19 104 Transcribed By: JEMAL on 10/10/19 1047 COPY TO: CHEIKH PIKE MD XRAY SPINE THORACIC 2 BBKTH2297-52-54 14:46:32IMPRESSION: 1. Please note that thoracic spine [...] report.Signed By: Yazan Terrazas MD, 08/30/2019 2:46 [place]nkqQPZPUY6947-49-49 15:28:00* Test Item Value Reference Range Interpretation Comments GLUBED (test code = GLUBED) 286 mg/dL 74-106 H Performed by certified rolling mill operator at [facility] BQGNDC7031-70-30 15:28:00* Test Item Value Reference Range Interpretation Comments GLUBED (test code = GLUBED) > 500 mg/dL 74-106 HH Performed by certified rolling mill operator [facility] HospitalDoctor Notified~ CBC W/O ADSC1689-78-04 14:40:00* Test Item Value Reference Range Interpretation [...] MPV) 11.7 fL 6.7-11.0 H CBC W/O UNFY1782-81-40 14:37:00* Test Item Value Reference Range Interpretation [...] MPV) fL 6.7-11.0 - CT ABD PELVIS W/OMIQ6525-46-86 12:34:00 Name: YOLETTE URIBE [facility]: 1975 Age/S: 44 / F [address] Unit #: [id number] Loc: [place] [address] Phys: Farshad Tran MD Acct: [id number] Dis Date: Status: REG ER PHONE #: [phone] Exam Date: 08/29/2019 1203 FAX #: [phone] Reason: lower abd pain EXAMS: CPT CODE: [id number] CT ABD PELVIS W/CONT 73566 REASON FOR EXAM: lower abd pain EXAM ORDER DATE: 08/29/2019 10:51 AM Ordering M.DPaty: Farshad Tran MD PROCEDURE: - CT ABD [...] Signed Report (CO NTINUED) Name: YOLETTE URIBE [facility] : 1975 Age/S: 44 / F [address] Unit #: [id number] Loc: [place] [address] Phys: Farshad Saldana MD Acct: [id number] Dis Date: Status: REG ER P MAGDA #: [phone] Exam Date: 08/29/2019 1203 FAX #: [phone] Reason: lower abd pain EX AMS: CPT CODE: [id number] CT A BD PELVIS W/CONT 42059 <Continued> Location: [facility] at 1234 Reported and signed by: Heriberto John MD CC: Farshad Tran MD; Lamberto Shrestha III, MD Technologist:Liseth Manzanares RT(R),CT CTDI: DLP: Trnscb Date/Time: 08/29/2019 (1234) [email or web address] Orig Print D/T: S: 08/29/2019 (3358) PAGE 2 Signed Report URINALYSIS [id number] 11:44:00* Test Item Value Reference Range Interpretation [...] FEW #/LPF FEW Urine Source? Clean CatchURINALYSIS [id number] 11:39:00* Test Item Value Reference Range Interpretation [...] #/LPF FEW Urine Source? Clean CatchBASIC METABOLIC [id number] 11:38:00* Test Item Value Reference Range Interpretation Comments SODIUM (test code = NA) 131 mmol/L 136-145 L POTASSIUM (test code = K) 4.2 mmol/L 3.5-5.1 N CHLORIDE (test code = CL) 96.0 mmol/L 98-107 L CARBON DIOXIDE (test code = CO2) 24.0 mmol/L 21-32 N ANION GAP (test code = GAP) 15.2 10-20 N GLUCOSE (test code = GLU) 541 mg/dL 74-106 Michelle chaney called to [id number] by V.LABFLORENCE 08/29/19 1138Critical results verified and read back [...] CA) 9.3 mg/dL 8.5-10.1 N HEPATIC FUNCTION [id number] 11:38:00* Test Item Value Reference Range Interpretation [...] reference range due to change in reagent. [id number] 11:38:00* Test Item Value Reference Range Interpretation Comments LIPASE (test code = LIP) 131 U/L 73.0-393.0 N BASIC METABOLIC [id number] 11:24:00* Test Item Value Reference Range Interpretation [...] code = CA) mg/dL 8.5-10.1 HEPATIC FUNCTION [id number] 11:24:00* Test Item Value Reference Range Interpretation [...] TOTAL (test code = ALKP) IUnit/L 45-117 JLHEKL0269-27-02 11:24:00* Test Item Value Reference Range Interpretation Comments LIPASE (test code = LIP) U/L 73.0-393.0 Blood Bmlrurg4891-44-71 09:50:00* Test Item Value Reference Range Interpretation Comments Blood Culture (test code = 44979818) NO GROWTH AFTER 5 DAYS, FINAL REPORT [facility] Jerazoy8813-28-92 09:50:00* Test Item Value Reference Range Interpretation Comments Blood Culture (test code = 55235697) NO GROWTH AFTER 5 DAYS, FINAL REPORT [facility] Ctxdjlu2011-42-85 09:50:00* Test Item Value Reference Range Interpretation Comments Blood Culture (test code = 62131230) NO GROWTH AFTER 5 DAYS, FINAL REPORT [facility] Zcivcrs7080-17-34 04:39:00* Test Item Value Reference Range Interpretation Comments Bedside Glucose (test code = 98368-5) 299 70-120 H Meter ID: [id number] [facility] Glucose 2019-08-23 04:39:00* Test Item Value Reference Range Interpretation Comments Bedside Glucose (test code = 60601-8) 299 70-120 H Meter ID: [id number] Culture 2019-08-22 09:50:00* Test Item Value Reference Range Interpretation Comments Blood Culture (test code = 14533073) NO GROWTH AFTER 72 HOURS [facility] Lyjmkqi6491-77-88 08:41:00* Test Item Value Reference Range Interpretation Comments Wound Culture (test code = 6462-6) No Result Data Provided [facility] Efeaiiz6048-82-09 08:41:00* Test Item Value Reference Range Interpretation Comments Wound Culture (test code = 6462-6) No Result Data Provided [facility] Esfksfb9241-70-86 08:41:00* Test Item Value Reference Range Interpretation Comments Wound Culture (test code = 6462-6) No Result Data Provided [facility] Bfrteds5205-98-87 08:41:00* Test Item Value Reference Range Interpretation Comments Wound Culture (test code = 6462-6) No Result Data Provided [facility] Hospital[facility]side Dodlqcp6435-85-20 07:40:00* Test Item Value Reference Range Interpretation Comments Bedside Glucose (test code = 11084-4) 321 70-120 H Meter ID: [id number] [facility]Van[facility] Rumabk7101-48-92 06:36:00* Test Item Value Reference Range Interpretation Comments Vancomycin Level Trough (test code = 4092-3) 4.5 5.0-10.0 L [facility] HospitalVancomycin Level Wkuupj8139-95-26 06:36:00* Test Item Value Reference Range Interpretation Comments Vancomycin Level Trough (test code = 4092-3) 4.5 5.0-10.0 L [facility] HospitalVancomycin Level Gbnvbj9287-01-94 06:36:00* Test Item Value Reference Range Interpretation Comments Vancomycin Level Trough (test code = 4092-3) 4.5 5.0-10.0 L [facility] HospitalVanintermountain healthcareycin Level Ipepgw5814-71-85 06:36:00* Test Item Value Reference Range Interpretation Comments Vancomycin Level Trough (test code = 4092-3) 4.5 5.0-10.0 L [facility] Wozjl7955-33-61 06:26:00* Test Item Value Reference Range Interpretation Comments Sodium Level (test code = 2951-2) 136 136-145 [facility] HospitalPotassium Cqipx4114-68-02 06:26:00* Test Item Value Reference Range Interpretation Comments Potassium Level (test code = 2823-3) 4.6 3.5-5.1 [facility] HospitalChloride Zpsak6972-92-65 06:26:00* Test Item Value Reference Range Interpretation Comments Chloride Level (test code = 2075-0) 98 98-107 [facility] HospitalCarbon Dioxide Qvxxs0670-93-35 06:26:00* Test Item Value Reference Range Interpretation Comments Carbon Dioxide Level (test code = 2028-9) 30 22-29 H [facility] HospitalAnion Fnj0464-75-08 06:26:00* Test Item Value Reference Range Interpretation Comments Anion Gap (test code = 32664-8) 12.6 8-16 [facility] HospitalBlood Urea Uugxynax7524-93-96 06:26:00* Test Item Value Reference Range Interpretation Comments Blood Urea Nitrogen (test code = 3094-0) 14 7-26 [facility] HospitalCreatinine2019-11-10 06:26:00* Test Item Value Reference Range Interpretation Comments Creatinine (test code = 2160-0) 0.61 0.57-1.11 [facility] HospitalBUN/Creatinine Nwfvi7062-34-32 06:26:00* Test Item Value Reference Range Interpretation Comments BUN/Creatinine Ratio (test code = 3097-3) 23 6-25 [facility] HospitalEstimat Glomerular Filtration Rate 2019-08-22 06:26:00* Test Item Value Reference Range Interpretation Comments Estimat Glomerular Filtration Rate (test code = 126818787) > 60 >60 Ranges were taken from the National Kidney Disease Education Program and the [facility] Kid[facility] Foundation literature.Reference ranges:60 or greater: Joydqe13-09 ( for 3 consecutive months): Chronic kidney disease 15 or less: Kidney failureHouston Methodist Willowbrook HospitalGlucose Kkzts2781-59-83 06:26:00* Test Item Value Reference Range Interpretation Comments Glucose Level (test code = VUK3284) 314 74-118 H [facility] HospitalCalcium Nrmip7460-29-92 06:26:00* Test Item Value Reference Range Interpretation Comments Calcium Level (test code = 35928-3) 10.0 8.4-10.2 [facility] Hospitalodium Qszht1255-02-18 06:26:00* Test Item Value Reference Range Interpretation Comments Sodium Level (test code = 2951-2) 136 136-145 [facility] HospitalPotassium Zwdgc7229-40-23 06:26:00* Test Item Value Reference Range Interpretation Comments Potassium Level (test code = 2823-3) 4.6 3.5-5.1 [facility] HospitalChloride Ebxti6199-68-87 06:26:00* Test Item Value Reference Range Interpretation Comments Chloride Level (test code = 2075-0) 98 98-107 [facility] HospitalCarbon Dioxide Eoikb1932-74-58 06:26:00* Test Item Value Reference Range Interpretation Comments Carbon Dioxide Level (test code = 2028-9) 30 22-29 H [facility] HospitalAnion Niz5964-70-27 06:26:00* Test Item Value Reference Range Interpretation Comments Anion Gap (test code = 67515-5) 12.6 8-16 [facility] HospitalBlood Urea Mmsaiput3807-99-73 06:26:00* Test Item Value Reference Range Interpretation Comments Blood Urea Nitrogen (test code = 3094-0) 14 7-26 [facility] HospitalCreatinine2019-11-10 06:26:00* Test Item Value Reference Range Interpretation Comments Creatinine (test code = 2160-0) 0.61 0.57-1.11 [facility] HospitalBUN/Creatinine Hcynn2742-89-85 06:26:00* Test Item Value Reference Range Interpretation Comments BUN/Creatinine Ratio (test code = 3097-3) 23 6-25 [facility] HospitalEstimat Glomerular Filtration Rate 2019-08-22 06:26:00* Test Item Value Reference Range Interpretation Comments Estimat Glomerular Filtration Rate (test code = 129180085) > 60 >60 Ranges were taken from the National Kidney Disease Education Program and the [facility] literature.Reference ranges:60 or greater: Dxyrmj81-72 ( for 3 consecutive months): Chronic kidney disease 15 or less: Kidney failureHouston Methodist Willowbrook HospitalGlucose Wenju3556-37-32 06:26:00* Test Item Value Reference Range Interpretation Comments Glucose Level (test code = RJB8448) 314 74-118 H [facility] HospitalCalcium Giiwi8932-62-09 06:26:00* Test Item Value Reference Range Interpretation Comments Calcium Level (test code = 01747-1) 10.0 8.4-10.2 [facility] Hospitalodium Ynalo3195-07-01 06:26:00* Test Item Value Reference Range Interpretation Comments Sodium Level (test code = 2951-2) 136 136-145 [facility] HospitalPotassium Oqdbt4428-84-56 06:26:00* Test Item Value Reference Range Interpretation Comments Potassium Level (test code = 2823-3) 4.6 3.5-5.1 [facility] HospitalChloride Ifooh8433-49-95 06:26:00* Test Item Value Reference Range Interpretation Comments Chloride Level (test code = 2075-0) 98 98-107 [facility] HospitalCarbon Dioxide Fzvvt4814-76-17 06:26:00* Test Item Value Reference Range Interpretation Comments Carbon Dioxide Level (test code = 2028-9) 30 22-29 H [facility] HospitalAnion Thd0443-15-83 06:26:00* Test Item Value Reference Range Interpretation Comments Anion Gap (test code = 42550-3) 12.6 8-16 [facility] HospitalBlood Urea Lishdmow5671-12-14 06:26:00* Test Item Value Reference Range Interpretation Comments Blood Urea Nitrogen (test code = 3094-0) 14 7-26 [facility] HospitalCreatinine2019-11-10 06:26:00* Test Item Value Reference Range Interpretation Comments Creatinine (test code = 2160-0) 0.61 0.57-1.11 [facility] HospitalBUN/Creatinine Cpcak6584-13-03 06:26:00* Test Item Value Reference Range Interpretation Comments BUN/Creatinine Ratio (test code = 3097-3) 23 6-25 [facility] HospitalEstimat Glomerular Filtration Rate 2019-08-22 06:26:00* Test Item Value Reference Range Interpretation Comments Estimat Glomerular Filtration Rate (test code = 162504772) > 60 >60 Ranges were taken from the National Kidney Disease Education Program and the [facility] Kidney Foundation literature.Reference ranges:60 or greater: Yjerct14-88 ( for 3 consecutive months): Chronic kidney disease 15 or less: Kidney failureHouston Methodist Willowbrook HospitalGlucose Edlsn1361-09-73 06:26:00* Test Item Value Reference Range Interpretation Comments Glucose Level (test code = KYE5210) 314 74-118 H [facility] HospitalCalcium Rpdmq2137-52-62 06:26:00* Test Item Value Reference Range Interpretation Comments Calcium Level (test code = 23673-4) 10.0 8.4-10.2 [facility] HospitalWhite Blood Kmhzd9278-83-85 06:00:00* Test Item Value Reference Range Interpretation Comments White Blood Count (test code = 6690-2) 9.60 4.8-10.8 [facility] HospitalRed Blood Kwovl6847-01-49 06:00:00* Test Item Value Reference Range Interpretation Comments Red Blood Count (test code = 789-8) 3.95 3.6-5.1 [facility] HospitalHemoglobin2019-11-10 06:00:00* Test Item Value Reference Range Interpretation Comments Hemoglobin (test code = 58266-5) 11.6 12.0-16.0 L [facility] HospitalHematocrit2019-11-10 06:00:00* Test Item Value Reference Range Interpretation Comments Hematocrit (test code = 4544-3) 34.0 34.2-44.1 L [facility] HospitalMean Corpuscular Mwonuh2510-51-83 06:00:00* Test Item Value Reference Range Interpretation Comments Mean Corpuscular Volume (test code = 787-2) 86.1 81-99 [facility] HospitalMean Corpuscular Gwxayqkous8958-59-05 06:00:00* Test Item Value Reference Range Interpretation Comments Mean Corpuscular Hemoglobin (test code = 785-6) 29.4 28-32 [facility] HospitalMean Corpuscular Hemoglobin Concent 2019-08-22 06:00:00* Test Item Value Reference Range Interpretation Comments Mean Corpuscular Hemoglobin Concent (test code = 786-4) 34.1 31-35 [facility] HospitalRed Cell Distribution Fdsjf5695-02-81 06:00:00* Test Item Value Reference Range Interpretation Comments Red Cell Distribution Width (test code = 66164-6) 12.7 11.7 -14.4 [facility] HospitalPlatelet Yeyua1281-71-98 06:00:00* Test Item Value Reference Range Interpretation Comments Platelet Count (test code = 777-3) 319 140-360 [facility] HospitalNeutrophils (%) (Auto)2019-08-22 06:00:00 * Test Item Value Reference Range Interpretation Comments Neutrophils (%) (Auto) (test code = 59062-5) 77.9 38.7-80.0 [facility] HospitalLymphocytes (%) (Auto)2019-08-22 06:00:00 * Test Item Value Reference Range Interpretation Comments Lymphocytes (%) (Auto) (test code = 736-9) 15.3 18.0-39.1 L [facility] HospitalMonocytes (%) (Auto)2019-08-22 06:00:00* Test Item Value Reference Range Interpretation Comments Monocytes (%) (Auto) (test code = 5905-5) 6.1 4.4-11.3 [facility] HospitalEosinophils (%) (Auto)2019-08-22 06:00:00 * Test Item Value Reference Range Interpretation Comments Eosinophils (%) (Auto) (test code = 713-8) 0.0 0.0-6.0 [facility] HospitalBasophils (%) (Auto)2019-08-22 06:00:00* Test Item Value Reference Range Interpretation Comments Basophils (%) (Auto) (test code = 706-2) 0.2 0.0-1.0 [facility] HospitalIM GRANULOCYTES %2019-08-22 06:00:00* Test Item Value Reference Range Interpretation Comments IM GRANULOCYTES % (test code = IM GRANULOCYTES %) 0.5 0.0- 1.0 [facility] HospitalNeutrophils # (Auto)2019-08-22 06:00:00* Test Item Value Reference Range Interpretation Comments Neutrophils # (Auto) (test code = 751-8) 7.5 2.1-6.9 H [facility] HospitalLymphocytes # (Auto)2019-08-22 06:00:00* Test Item Value Reference Range Interpretation Comments Lymphocytes # (Auto) (test code = 87270-7) 1.5 1.0-3.2 [facility] HospitalMonocytes # (Auto)2019-08-22 06:00:00* Test Item Value Reference Range Interpretation Comments Monocytes # (Auto) (test code = 742-7) 0.6 0.2-0.8 [facility] HospitalEosinophils # (Auto)2019-08-22 06:00:00* Test Item Value Reference Range Interpretation Comments Eosinophils # (Auto) (test code = 711-2) 0.0 0.0-0.4 [facility] HospitalBasophils # (Auto)2019-08-22 06:00:00* Test Item Value Reference Range Interpretation Comments Basophils # (Auto) (test code = 704-7) 0.0 0.0-0.1 [facility] HospitalAbsolute Immature Granulocyte (auto 2019-08-22 06:00:00* Test Item Value Reference Range Interpretation Comments Absolute Immature Granulocyte (auto (chiquita t code = Absolute Immature Granulocyte (auto) 0.05 0-0.1 [facility] HospitalWhite Blood Jstwj2744-76-64 06:00:00* Test Item Value Reference Range Interpretation Comments White Blood Count (test code = 6690-2) 9.60 4.8-10.8 [facility] HospitalRed Blood Urhtl0926-37-26 06:00:00* Test Item Value Reference Range Interpretation Comments Red Blood Count (test code = 789-8) 3.95 3.6-5.1 [facility] HospitalHemoglobin2019-11-10 06:00:00* Test Item Value Reference Range Interpretation Comments Hemoglobin (test code = 37430-1) 11.6 12.0-16.0 L [facility] HospitalHematocrit2019-11-10 06:00:00* Test Item Value Reference Range Interpretation Comments Hematocrit (test code = 4544-3) 34.0 34.2-44.1 L [facility] HospitalMean Corpuscular Pwozhl1421-93-54 06:00:00* Test Item Value Reference Range Interpretation Comments Mean Corpuscular Volume (test code = 787-2) 86.1 81-99 [facility] HospitalMean Corpuscular Xakthwkuif0304-78-51 06:00:00* Test Item Value Reference Range Interpretation Comments Mean Corpuscular Hemoglobin (test code = 785-6) 29.4 28-32 [facility] HospitalMean Corpuscular Hemoglobin Concent 2019-08-22 06:00:00* Test Item Value Reference Range Interpretation Comments Mean Corpuscular Hemoglobin Concent (test code = 786-4) 34.1 31-35 [facility] HospitalRed Cell Distribution Dxrcm8780-21-91 06:00:00* Test Item Value Reference Range Interpretation Comments Red Cell Distribution Width (test code = 53424-9) 12.7 11.7 -14.4 [facility] HospitalPlatelet Rvpor3714-57-82 06:00:00* Test Item Value Reference Range Interpretation Comments Platelet Count (test code = 777-3) 319 140-360 [facility] HospitalNeutrophils (%) (Auto)2019-08-22 06:00:00 * Test Item Value Reference Range Interpretation Comments Neutrophils (%) (Auto) (test code = 95965-6) 77.9 38.7-80.0 [facility] HospitalLymphocytes (%) (Auto)2019-08-22 06:00:00 * Test Item Value Reference Range Interpretation Comments Lymphocytes (%) (Auto) (test code = 736-9) 15.3 18.0-39.1 L [facility] HospitalMonocytes (%) (Auto)2019-08-22 06:00:00* Test Item Value Reference Range Interpretation Comments Monocytes (%) (Auto) (test code = 5905-5) 6.1 4.4-11.3 [facility] HospitalEosinophils (%) (Auto)2019-08-22 06:00:00 * Test Item Value Reference Range Interpretation Comments Eosinophils (%) (Auto) (test code = 713-8) 0.0 0.0-6.0 [facility] HospitalBasophils (%) (Auto)2019-08-22 06:00:00* Test Item Value Reference Range Interpretation Comments Basophils (%) (Auto) (test code = 706-2) 0.2 0.0-1.0 [facility] HospitalIM GRANULOCYTES %2019-08-22 06:00:00* Test Item Value Reference Range Interpretation Comments IM GRANULOCYTES % (test code = IM GRANULOCYTES %) 0.5 0.0- 1.0 [facility] HospitalNeutrophils # (Auto)2019-08-22 06:00:00* Test Item Value Reference Range Interpretation Comments Neutrophils # (Auto) (test code = 751-8) 7.5 2.1-6.9 H [facility] HospitalLymphocytes # (Auto)2019-08-22 06:00:00* Test Item Value Reference Range Interpretation Comments Lymphocytes # (Auto) (test code = 45495-9) 1.5 1.0-3.2 [facility] HospitalMonocytes # (Auto)2019-08-22 06:00:00* Test Item Value Reference Range Interpretation Comments Monocytes # (Auto) (test code = 742-7) 0.6 0.2-0.8 [facility] HospitalEosinophils # (Auto)2019-08-22 06:00:00* Test Item Value Reference Range Interpretation Comments Eosinophils # (Auto) (test code = 711-2) 0.0 0.0-0.4 [facility] HospitalBasophils # (Auto)2019-08-22 06:00:00* Test Item Value Reference Range Interpretation Comments Basophils # (Auto) (test code = 704-7) 0.0 0.0-0.1 [facility] HospitalAbsolute Immature Granulocyte (auto 2019-08-22 06:00:00* Test Item Value Reference Range Interpretation Comments Absolute Immature Granulocyte (auto (chiquita t code = Absolute Immature Granulocyte (auto) 0.05 0-0.1 [facility] HospitalWhite Blood Bzras6583-78-95 06:00:00* Test Item Value Reference Range Interpretation Comments White Blood Count (test code = 6690-2) 9.60 4.8-10.8 [facility] HospitalRed Blood Rtirb4002-95-54 06:00:00* Test Item Value Reference Range Interpretation Comments Red Blood Count (test code = 789-8) 3.95 3.6-5.1 [facility] HospitalHemoglobin2019-11-10 06:00:00* Test Item Value Reference Range Interpretation Comments Hemoglobin (test code = 87026-7) 11.6 12.0-16.0 L [facility] HospitalHematocrit2019-11-10 06:00:00* Test Item Value Reference Range Interpretation Comments Hematocrit (test code = 4544-3) 34.0 34.2-44.1 L [facility] HospitalMean Corpuscular Ptegow4044-86-83 06:00:00* Test Item Value Reference Range Interpretation Comments Mean Corpuscular Volume (test code = 787-2) 86.1 81-99 [facility] HospitalMean Corpuscular Dflsjdglhj0057-91-80 06:00:00* Test Item Value Reference Range Interpretation Comments Mean Corpuscular Hemoglobin (test code = 785-6) 29.4 28-32 [facility] HospitalMean Corpuscular Hemoglobin Concent 2019-08-22 06:00:00* Test Item Value Reference Range Interpretation Comments Mean Corpuscular Hemoglobin Concent (test code = 786-4) 34.1 31-35 [facility] HospitalRed Cell Distribution Iwldv1444-97-38 06:00:00* Test Item Value Reference Range Interpretation Comments Red Cell Distribution Width (test code = 39334-1) 12.7 11.7 -14.4 [facility] HospitalPlatelet Sehyr9851-05-47 06:00:00* Test Item Value Reference Range Interpretation Comments Platelet Count (test code = 777-3) 319 140-360 [facility] HospitalNeutrophils (%) (Auto)2019-08-22 06:00:00 * Test Item Value Reference Range Interpretation Comments Neutrophils (%) (Auto) (test code = 77741-9) 77.9 38.7-80.0 [facility] HospitalLymphocytes (%) (Auto)2019-08-22 06:00:00 * Test Item Value Reference Range Interpretation Comments Lymphocytes (%) (Auto) (test code = 736-9) 15.3 18.0-39.1 L [facility] HospitalMonocytes (%) (Auto)2019-08-22 06:00:00* Test Item Value Reference Range Interpretation Comments Monocytes (%) (Auto) (test code = 5905-5) 6.1 4.4-11.3 [facility] HospitalEosinophils (%) (Auto)2019-08-22 06:00:00 * Test Item Value Reference Range Interpretation Comments Eosinophils (%) (Auto) (test code = 713-8) 0.0 0.0-6.0 [facility] HospitalBasophils (%) (Auto)2019-08-22 06:00:00* Test Item Value Reference Range Interpretation Comments Basophils (%) (Auto) (test code = 706-2) 0.2 0.0-1.0 [facility] HospitalIM GRANULOCYTES %2019-08-22 06:00:00* Test Item Value Reference Range Interpretation Comments IM GRANULOCYTES % (test code = IM GRANULOCYTES %) 0.5 0.0- 1.0 [facility] HospitalNeutrophils # (Auto)2019-08-22 06:00:00* Test Item Value Reference Range Interpretation Comments Neutrophils # (Auto) (test code = 751-8) 7.5 2.1-6.9 H [facility] HospitalLymphocytes # (Auto)2019-08-22 06:00:00* Test Item Value Reference Range Interpretation Comments Lymphocytes # (Auto) (test code = 58223-3) 1.5 1.0-3.2 [facility] HospitalMonocytes # (Auto)2019-08-22 06:00:00* Test Item Value Reference Range Interpretation Comments Monocytes # (Auto) (test code = 742-7) 0.6 0.2-0.8 [facility] HospitalEosinophils # (Auto)2019-08-22 06:00:00* Test Item Value Reference Range Interpretation Comments Eosinophils # (Auto) (test code = 711-2) 0.0 0.0-0.4 [facility] HospitalBasophils # (Auto)2019-08-22 06:00:00* Test Item Value Reference Range Interpretation Comments Basophils # (Auto) (test code = 704-7) 0.0 0.0-0.1 [facility] HospitalAbsolute Immature Granulocyte (auto 2019-08-22 06:00:00* Test Item Value Reference Range Interpretation Comments Absolute Immature Granulocyte (auto (chiquita t code = Absolute Immature Granulocyte (auto) 0.05 0-0.1 [facility] vancomycin level at trough (mass/volume)2019-08-22 04:43:00* Test Item Value Reference Range Interpretation Comments Vancomycin Level Trough (test code = 4092-3) 4.5 5.0-10.0 [facility]HOULD[facility] RIGHT 1 [id number] 19:34:00 [facility] [address] [address] Patient Name: YOLETTE URIBE MR #: [id number] : 1975 Age/Sex: 44/F Req #: [id number] Adm Physician: JAZLYN ARZATE MD Ordered by: Aby Urban [employer]AL [employer]ICE TR[employer]ER Report #: [id number] Location: MED/SURG3 Room/Bed: [facility] Procedure: [id number] DX/DUSTNI ULDER RIGHT 1 VIEW Exam Date: 08/20/19 [...] JEMAL on 08/20/191935 COPY TO: ABY URBAN [employer]TRAL [employer]ICE TROUBLE SHO[employer]ER CT BRAIN [id number] 19:29:[address] [address] Patient Name: YOLETTE URIBE MR #: [id number] : 1975 Age/Sex: 44/F Req #: [id number] Adm Physician: JAZLYN ARZATE MD Ordered by: Aby Urban [employer]AL OFFICE TR[employer]ER Report #: [id number] Location: MED/SURG3 Room/Bed: [facility] Procedure: [id number] CT/CT BRAIN WO Exam Date: 08/20/19 Exam Time: 1910 REPORT STATUS: Signed EXAMINATION: Head CT without [...] on 08/20/191936 COPY TO: ABY URBAN NP Bacteria identification in wound by yoiosbf8986-48-90 08:10:00* Test Item Value Reference Range Interpretation Comments Wound Culture (test code = 6462-6) STAPHYLOCOCCUS AUREUS-MRSA [facility] Hgmxzywdb1972-89-83 04:25:00* Test Item Value Reference Range Interpretation Comments Total Bilirubin (test code = 1975-2) 0.2 0.2-1.2 [facility] HospitalAspartate Amino Transf (AST/SGOT) 2019-08-20 04:25:00* Test Item Value Reference Range Interpretation Comments Aspartate Amino Transf (AST/SGOT) (test code = Aspartate Amino Transf (AST/SGOT)) 15 5-34 [facility] HospitalAlanine Aminotransferase (ALT/SGPT) 2019-08-20 04:25:00* Test Item Value Reference Range Interpretation Comments Alanine Aminotransferase (ALT/SGPT) (test code = 1742-6) 10 0-55 [facility] HospitalTotal Mcwsknu8524-66-25 04:25:00* Test Item Value Reference Range Interpretation Comments Total Protein (test code = 2885-2) 6.5 6.5-8.1 [facility] HospitalAlbumin2019-11-08 04:25:00* Test Item Value Reference Range Interpretation Comments Albumin (test code = 1751-7) 2.9 3.5-5.0 L [facility] HospitalGlobulin2019-11-08 04:25:00* Test Item Value Reference Range Interpretation Comments Globulin (test code = 27528-1) 3.6 2.3-3.5 H [facility] HospitalAlbumin/Globulin Brovl1697-85-08 04:25:00 * Test Item Value Reference Range Interpretation Comments Albumin/Globulin Ratio (test code = 1759-0) 0.8 0.8-2.0 [facility] HospitalAlkaline Gfnogqdltjp6627-51-01 04:25:00* Test Item Value Reference Range Interpretation Comments Alkaline Phosphatase (test code = 6768-6) 121 40-150 [facility] Ufahwbckv9875-10-34 04:25:00* Test Item Value Reference Range Interpretation Comments Total Bilirubin (test code = 1975-2) 0.2 0.2-1.2 [facility] HospitalAspartate Amino Transf (AST/SGOT) 2019-08-20 04:25:00* Test Item Value Reference Range Interpretation Comments Aspartate Amino Transf (AST/SGOT) (test code = Aspartate Amino Transf (AST/SGOT)) 15 5-34 [facility] HospitalAlanine Aminotransferase (ALT/SGPT) 2019-08-20 04:25:00* Test Item Value Reference Range Interpretation Comments Alanine Aminotransferase (ALT/SGPT) (test code = 1742-6) 10 0-55 [facility] Pfhmntq9867-02-72 04:25:00* Test Item Value Reference Range Interpretation Comments Total Protein (test code = 2885-2) 6.5 6.5-8.1 [facility] HospitalAlbumin2019-11-08 04:25:00* Test Item Value Reference Range Interpretation Comments Albumin (test code = 1751-7) 2.9 3.5-5.0 L [facility] HospitalGlobulin2019-11-08 04:25:00* Test Item Value Reference Range Interpretation Comments Globulin (test code = 01621-1) 3.6 2.3-3.5 H [facility] HospitalAlbumin/Globulin Qgyoa1133-78-33 04:25:00 * Test Item Value Reference Range Interpretation Comments Albumin/Globulin Ratio (test code = 1759-0) 0.8 0.8-2.0 [facility] HospitalAlkaline Lugkstjrobf2586-63-53 04:25:00* Test Item Value Reference Range Interpretation Comments Alkaline Phosphatase (test code = 6768-6) 121 40-150 [facility] Tkocmjxin8287-38-50 04:25:00* Test Item Value Reference Range Interpretation Comments Total Bilirubin (test code = 1975-2) 0.2 0.2-1.2 [facility] HospitalAspartate Amino Transf (AST/SGOT) 2019-08-20 04:25:00* Test Item Value Reference Range Interpretation Comments Aspartate Amino Transf (AST/SGOT) (test code = Aspartate Amino Transf (AST/SGOT)) 15 5-34 [facility] HospitalAlanine Aminotransferase (ALT/SGPT) 2019-08-20 04:25:00* Test Item Value Reference Range Interpretation Comments Alanine Aminotransferase (ALT/SGPT) (test code = 1742-6) 10 0-55 [facility] HospitalTotal Jhhjgqk9029-66-14 04:25:00* Test Item Value Reference Range Interpretation Comments Total Protein (test code = 2885-2) 6.5 6.5-8.1 [facility] HospitalAlbumin2019-11-08 04:25:00* Test Item Value Reference Range Interpretation Comments Albumin (test code = 1751-7) 2.9 3.5-5.0 L [facility] HospitalGlobulin2019-11-08 04:25:00* Test Item Value Reference Range Interpretation Comments Globulin (test code = 89514-0) 3.6 2.3-3.5 H [facility] HospitalAlbumin/Globulin Ohdad8243-54-64 04:25:00 * Test Item Value Reference Range Interpretation Comments Albumin/Globulin Ratio (test code = 1759-0) 0.8 0.8-2.0 [facility] HospitalAlkaline Cqblsiykefm2053-74-31 04:25:00* Test Item Value Reference Range Interpretation Comments Alkaline Phosphatase (test code = 6768-6) 121 40-150 [facility] HospitalCT THORACIC SPINE J4469-55-11 12:56:00 [facility] [address] [place] [address] Patient Name: YOLETTE URIBE MR #: [id number] : 1975 Age/Sex: 44/F Req #: [id number] Adm Physician: Ordered by: CROW CARLOS DO Report #: [id number] Location: ER Room/Bed: Procedure: [id number] CT/CT THORACIC SPINE W Exam Date: 08/19/19 [...] on 08/19/2019 1:16 PM Dictated By: JEANNETTE RESENIDZ MD Transcribed By: JEMAL on 08/19/196 COPY TO: CROW CARLOS DO CT LUMBAR SPINE [id number] 12:56:00 [address] [address] Patient Name: YOLETTE URIBE MR #: [id number] : 1975 Age/Sex: 44/F Req #: [id number] Adm Physician: Ordered by: CROW CARLOS DO Report #: [id number] Location: ER Room/Bed: Procedure: [id number] CT/CT LUMBAR SPINE WO Exam Date: 08/19/19 [...] COPY TO: CROW BOSTON DO Creatine Kinase TB9769-80-19 10:13:00* Test Item Value Reference Range Interpretation Comments Creatine Kinase MB (test code = 48073-7) < 1.00 0-4.3 [place] 07865019-11-07 10:13:00* Test Item Value Reference Range Interpretation Comments Troponin I (test code = 26064-6) < 0.05 0.0-0.40 [facility] HospitalCreatine Kinase VO0846-49-55 10:13:00* Test Item Value Reference Range Interpretation Comments Creatine Kinase MB (test code = 36815-5) < 1.00 0-4.3 [address] 07865019-11-07 10:13:00* Test Item Value Reference Range Interpretation Comments Troponin I (test code = 78475-6) < 0.05 0.0-0.40 [facility] HospitalCreatine Kinase OB9293-78-16 10:13:00* Test Item Value Reference Range Interpretation Comments Creatine Kinase MB (test code = 93842-8) < 1.00 0-4.3 [place] 07865019-11-07 10:13:00* Test Item Value Reference Range Interpretation Comments Troponin I (test code = 38693-5) < 0.05 0.0-0.40 [facility] HospitalCreatine Zxjfan7827-63-06 09:55:00* Test Item Value Reference Range Interpretation Comments Creatine Kinase (test code = 2157-6) 24 29-168 L [facility] HospitalCreatine Xbsixw8313-86-34 09:55:00* Test Item Value Reference Range Interpretation Comments Creatine Kinase (test code = 2157-6) 24 29-168 L [facility] HospitalCreatine Nhaito6905-43-45 09:55:00* Test Item Value Reference Range Interpretation Comments Creatine Kinase (test code = 2157-6) 24 29-168 L [facility] HospitalLactic Acid Shgsx3724-43-63 09:47:00* Test Item Value Reference Range Interpretation Comments Lactic Acid Level (test code = Lactic Acid Level) 1.6 0.5- 2.0 [facility] HospitalLactic Acid Guqgv5805-33-92 09:47:00* Test Item Value Reference Range Interpretation Comments Lactic Acid Level (test code = Lactic Acid Level) 1.6 0.5- 2.0 [facility] HospitalLactic Acid Mmctg6502-10-14 09:47:00* Test Item Value Reference Range Interpretation Comments Lactic Acid Level (test code = Lactic Acid Level) 1.6 0.5- 2.0 [facility] HospitalLactic Acid Xygmc8992-08-39 09:47:00* Test Item Value Reference Range Interpretation Comments Lactic Acid Level (test code = Lactic Acid Level) 1.6 0.5- 2.0 [facility] HospitalUrine Opiates Pvjuvy1677-12-85 09:39:00* Test Item Value Reference Range Interpretation Comments Urine Opiates Screen (test code = 71510-5) NEGATIVE NEGATIVE ALL TESTS PERFORMED MANUALLY ON Videoflow TOX/SEE TESTHouston Methodist Willowbrook HospitalUrine Barbiturates Ikqsfb5833-67-72 09:39:00* Test Item Value Reference Range Interpretation Comments Urine Barbiturates Screen (test code = 361813471) NEGATIVE NEGA TIVE [facility] HospitalUrine Phencyclidine Mtxjaj7992-00-37 09:39:00* Test Item Value Reference Range Interpretation Comments Urine Phencyclidine Screen (test code = 03419-9) NEGATIVE NEGAT ЕЛЕНА [facility] HospitalUrine Amphetamines Hgrdht7563-32-74 09:39:00* Test Item Value Reference Range Interpretation Comments Urine Amphetamines Screen (test code = 41444-4) NEGATIVE NEGATI VE [facility] HospitalUrine Methamphetamines Bfhqlp5953-81-69 09:39:00* Test Item Value Reference Range Interpretation Comments Urine Methamphetamines Screen (test code = Urine Metha mphetamines Screen) NEGATIVE NEGATIVE [facility] HospitalUrine Benzodiazepines Dxdanr3281-05-26 09:39:00* Test Item Value Reference Range Interpretation Comments Urine Benzodiazepines Screen (test code = 46627-6) NEGATIVE NEG ATIVE [facility] HospitalUrine Cocaine Ybecfz7193-13-09 09:39:00* Test Item Value Reference Range Interpretation Comments Urine Cocaine Screen (test code = 3398-5) NEGATIVE NEGATIVE [facility] HospitalUrine Cannabinoids Uufwjs1712-61-73 09:39:00* Test Item Value Reference Range Interpretation Comments Urine Cannabinoids Screen (test code = 14359-9) NEGATIVE NEGATI VE THESE RESULTS ARE FOR MEDICAL TREATMENT ONLYTHIS REPORT CONTAINS UNCONFIR MED SCREENING RESULTS*POSITIVE RESULTS WILL BE CONFIRMED BY REFERENCE LAB UPON R EQUEST CUT-OFFDRUG CLASS CONCENTRATION ng/mLAmphetamines 1000Methamphetamines 1000Cocaine 300Opiate 300Phencyc lidine 25Cannabinoid 50Barbiturates 300Benzodiazepine 300Methadone 300[facility] HospitalUrine Methadone Ifnyas4423-88-37 09:39:00* Test Item Value Reference Range Interpretation Comments Urine Methadone Screen (test code = 19334-7) NEGATIVE NEGATIVE THESE RESULTS ARE FOR MEDICAL TREATMENT ONLYTHIS REPORT CONTAINS UNCONFIR MED SCREENING RESULTS*POSITIVE RESULTS WILL BE CONFIRMED BY REFERENCE LAB UPON R EQUEST CUT-OFFDRUG CLASS CONCENTRATION ng/mLAmphetamines 1000Methamphetamines 1000Cocaine Metabolite 300Opiate 300Phencyc lidine 25Cannabinoid 50Barbiturates 300Benzodiazepine 300Methadone 300[facility] HospitalUrine Pnek6670-66-82 09:39:00* Test Item Value Reference Range Interpretation Comments Urine Test (test code = 2106-3) NEGATIVE NEGATIVE [facility] HospitalUrine Opiates Yovfkp1628-92-34 09:39:00* Test Item Value Reference Range Interpretation Comments Urine Opiates Screen (test code = 46100-6) NEGATIVE NEGATIVE ALL TESTS PERFORMED MANUALLY ON BIORAD TOX/SEE TESTHouston [facility] Willowbrook HospitalUrine Barbiturates Lftqfn8774-28-64 09:39:00* Test Item Value Reference Range Interpretation Comments Urine Barbiturates Screen (test code = 472264607) NEGATIVE NEGA TIVE [facility] HospitalUrine Phencyclidine Fefrcx9646-98-80 09:39:00* Test Item Value Reference Range Interpretation Comments Urine Phencyclidine Screen (test code = 19378-3) NEGATIVE NEGAT ЕЛЕНА [facility] HospitalUrine Amphetamines Nechrg7381-50-18 09:39:00* Test Item Value Reference Range Interpretation Comments Urine Amphetamines Screen (test code = 79249-5) NEGATIVE NEGATI VE [facility] HospitalUrine Methamphetamines Kjrwyt4626-84-05 09:39:00* Test Item Value Reference Range Interpretation Comments Urine Methamphetamines Screen (test code = Urine Metha mphetamines Screen) NEGATIVE NEGATIVE [facility] HospitalUrine Benzodiazepines Nlnbst7711-79-12 09:39:00* Test Item Value Reference Range Interpretation Comments Urine Benzodiazepines Screen (test code = 12993-0) NEGATIVE NEG ATIVE [facility] HospitalUrine Cocaine Vwanqe1620-34-12 09:39:00* Test Item Value Reference Range Interpretation Comments Urine Cocaine Screen (test code = 3398-5) NEGATIVE NEGATIVE [facility] HospitalUrine Cannabinoids Gvehxe9083-04-32 09:39:00* Test Item Value Reference Range Interpretation Comments Urine Cannabinoids Screen (test code = 55333-8) NEGATIVE NEGATI VE THESE RESULTS ARE FOR MEDICAL TREATMENT ONLYTHIS REPORT CONTAINS UNCONFIR MED SCREENING RESULTS*POSITIVE RESULTS WILL BE CONFIRMED BY REFERENCE LAB UPON R EQUEST CUT-OFFDRUG CLASS CONCENTRATION ng/mLAmphetamines 1000Methamphetamines 1000Cocaine 300Opiate 300Phencyc lidine 25Cannabinoid 50Barbiturates 300Benzodiazepine 300Methadone 300[facility] HospitalUrine Methadone Qzvdoy9992-68-85 09:39:00* Test Item Value Reference Range Interpretation Comments Urine Methadone Screen (test code = 39579-3) NEGATIVE NEGATIVE THESE RESULTS ARE FOR MEDICAL TREATMENT ONLYTHIS REPORT CONTAINS UNCONFIR MED SCREENING RESULTS*POSITIVE RESULTS WILL BE CONFIRMED BY REFERENCE LAB UPON R EQUEST CUT-OFFDRUG CLASS CONCENTRATION ng/mLAmphetamines 1000Methamphetamines 1000Cocaine Metabolite 300Opiate 300Phencyc lidine 25Cannabinoid 50Barbiturates 300Benzodiazepine 300Methadone 300[facility] HospitalU[facility] Uvbl9510-11-37 09:39:00* Test Item Value Reference Range Interpretation Comments Urine Test (test code = 2106-3) NEGATIVE NEGATIVE [facility] HospitalUrine Opiates Qfqaxh9529-30-19 09:39:00* Test Item Value Reference Range Interpretation Comments Urine Opiates Screen (test code = 40822-7) NEGATIVE NEGATIVE ALL TESTS PERFORMED MANUALLY ON Videoflow TOX/SEE TESTHouston [facility] HospitalUrine Barbiturates Jsykxh7474-55-68 09:39:00* Test Item Value Reference Range Interpretation Comments Urine Barbiturates Screen (test code = 717859689) NEGATIVE NEGA TIVE [facility] HospitalUrine Phencyclidine Ityinl8778-13-44 09:39:00* Test Item Value Reference Range Interpretation Comments Urine Phencyclidine Screen (test code = 13029-7) NEGATIVE NEGAT ЕЛЕНА [facility] HospitalUrine Amphetamines Nxoegb3729-64-77 09:39:00* Test Item Value Reference Range Interpretation Comments Urine Amphetamines Screen (test code = 69109-0) NEGATIVE NEGATI VE [facility] HospitalUrine Methamphetamines Bugaqv6261-45-77 09:39:00* Test Item Value Reference Range Interpretation Comments Urine Methamphetamines Screen (test code = Urine Metha mphetamines Screen) NEGATIVE NEGATIVE [facility] HospitalUrine Benzodiazepines Alcvnv0938-40-97 09:39:00* Test Item Value Reference Range Interpretation Comments Urine Benzodiazepines Screen (test code = 97386-5) NEGATIVE NEG ATIVE [facility] HospitalUrine Cocaine Vhbvja2406-95-51 09:39:00* Test Item Value Reference Range Interpretation Comments Urine Cocaine Screen (test code = 3398-5) NEGATIVE NEGATIVE [facility] HospitalUrine Cannabinoids Gawzsq2565-11-84 09:39:00* Test Item Value Reference Range Interpretation Comments Urine Cannabinoids Screen (test code = 01385-7) NEGATIVE NEGATI VE THESE RESULTS ARE FOR MEDICAL TREATMENT ONLYTHIS REPORT CONTAINS UNCONFIR MED SCREENING RESULTS*POSITIVE RESULTS WILL BE CONFIRMED BY REFERENCE LAB UPON R EQUEST CUT-OFFDRUG CLASS CONCENTRATION ng/mLAmphetamines 1000Methamphetamines 1000Cocaine 300Opiate 300Phencyc lidine 25Cannabinoid 50Barbiturates 300Benzodiazepine 300Methadone 300[facility] HospitalUrine Methadone Xiwsvw9256-22-44 09:39:00* Test Item Value Reference Range Interpretation Comments Urine Methadone Screen (test code = 63398-5) NEGATIVE NEGATIVE THESE RESULTS ARE FOR MEDICAL TREATMENT ONLYTHIS REPORT CONTAINS UNCONFIR MED SCREENING RESULTS*POSITIVE RESULTS WILL BE CONFIRMED BY REFERENCE LAB UPON R EQUEST CUT-OFFDRUG CLASS CONCENTRATION ng/mLAmphetamines 1000Methamphetamines 1000Cocaine Metabolite 300Opiate 300Phencyc lidine 25Cannabinoid 50Barbiturates 300Benzodiazepine 300Methadone 300[facility] HospitalUrine Lwnm4976-38-73 09:39:00* Test Item Value Reference Range Interpretation Comments Urine Test (test code = 2106-3) NEGATIVE NEGATIVE [facility] HospitalUrine Opiates Nxypdc9526-39-64 09:39:00* Test Item Value Reference Range Interpretation Comments Urine Opiates Screen (test code = 48183-1) NEGATIVE NEGATIVE ALL TESTS PERFORMED MANUALLY ON Videoflow TOX/SEE TESTHouston [facility]owbrook HospitalUrine Barbiturates Piowgn5752-65-62 09:39:00* Test Item Value Reference Range Interpretation Comments Urine Barbiturates Screen (test code = 323528499) NEGATIVE NEGA TIVE [facility] HospitalUrine Phencyclidine Reames8473-17-29 09:39:00* Test Item Value Reference Range Interpretation Comments Urine Phencyclidine Screen (test code = 54969-8) NEGATIVE NEGAT ЕЛЕНА [facility] HospitalUrine Amphetamines Dbvfla6407-91-05 09:39:00* Test Item Value Reference Range Interpretation Comments Urine Amphetamines Screen (test code = 74017-7) NEGATIVE NEGATI VE [facility] HospitalUrine Methamphetamines Caxycs8980-08-41 09:39:00* Test Item Value Reference Range Interpretation Comments Urine Methamphetamines Screen (test code = Urine Metha mphetamines Screen) NEGATIVE NEGATIVE [facility] HospitalUrine Benzodiazepines Bnfeyd0273-42-75 09:39:00* Test Item Value Reference Range Interpretation Comments Urine Benzodiazepines Screen (test code = 61210-1) NEGATIVE NEG ATIVE [facility] HospitalUrine Cocaine Lkuqqv1445-64-79 09:39:00* Test Item Value Reference Range Interpretation Comments Urine Cocaine Screen (test code = 3398-5) NEGATIVE NEGATIVE [facility] HospitalUrine Cannabinoids Rxredk4920-74-78 09:39:00* Test Item Value Reference Range Interpretation Comments Urine Cannabinoids Screen (test code = 36892-5) NEGATIVE NEGATI VE THESE RESULTS ARE FOR MEDICAL TREATMENT ONLYTHIS REPORT CONTAINS UNCONFIR MED SCREENING RESULTS*POSITIVE RESULTS WILL BE CONFIRMED BY REFERENCE LAB UPON R EQUEST CUT-OFFDRUG CLASS CONCENTRATION ng/mLAmphetamines 1000Methamphetamines 1000Cocaine 300Opiate 300Phencyc lidine 25Cannabinoid 50Barbiturates 300Benzodiazepine 300Methadone 300[facility] HospitalUrine Methadone Tvsakt2774-13-89 09:39:00* Test Item Value Reference Range Interpretation Comments Urine Methadone Screen (test code = 05933-7) NEGATIVE NEGATIVE THESE RESULTS ARE FOR MEDICAL TREATMENT ONLYTHIS REPORT CONTAINS UNCONFIR MED SCREENING RESULTS*POSITIVE RESULTS WILL BE CONFIRMED BY REFERENCE LAB UPON R EQUEST CUT-OFFDRUG CLASS CONCENTRATION ng/mLAmphetamines 1000Methamphetamines 1000Cocaine Metabolite 300Opiate 300Phencyc lidine 25Cannabinoid 50Barbiturates 300Benzodiazepine 300Methadone 300[facility] HospitalUrine Qqzm2448-74-05 09:39:00* Test Item Value Reference Range Interpretation Comments Urine Test (test code = 2106-3) NEGATIVE NEGATIVE [facility] HospitalBlood dabaumy1587-27-59 08:50:00* Test Item Value Reference Range Interpretation Comments Blood Culture (test code = 39430749) NO GROWTH AFTER 5 DAYS, FINAL REPORT [facility] HospitalUrine human chorionic gonadotropin (hCG) yhfzfxfty4909-82-44 07:52:00* Test Item Value Reference Range Interpretation Comments Urine Test (test code = 2106-3) NEGATIVE NEGATIVE [facility] HospitalBedside Ckvrzlc6181-39-32 02:32:00* Test Item Value Reference Range Interpretation Comments Bedside Glucose (test code = 83332-9) 391 70-120 H Meter ID: [id number] Methodist Willowbrook HospitalWhite Blood Count 2019-08-17 01:16:00* Test Item Value Reference Range Interpretation Comments White Blood Count (test code = 6690-2) 11.54 4.8-10.8 H [facility] HospitalRed Blood Zwwse5013-68-89 01:16:00* Test Item Value Reference Range Interpretation Comments Red Blood Count (test code = 789-8) 4.51 3.6-5.1 [facility] HospitalHemoglobin2019-11-05 01:16:00* Test Item Value Reference Range Interpretation Comments Hemoglobin (test code = 32445-6) 13.3 12.0-16.0 [facility] HospitalHematocrit2019-11-05 01:16:00* Test Item Value Reference Range Interpretation Comments Hematocrit (test code = 4544-3) 38.4 34.2-44.1 [facility] HospitalMean Corpuscular Yfndjj1972-43-48 01:16:00* Test Item Value Reference Range Interpretation Comments Mean Corpuscular Volume (test code = 787-2) 85.1 81-99 [facility] HospitalMean Corpuscular Mlwcuzklef6280-81-34 01:16:00* Test Item Value Reference Range Interpretation Comments Mean Corpuscular Hemoglobin (test code = 785-6) 29.5 28-32 [facility] Corpuscular Hemoglobin Concent 2019-08-17 01:16:00* Test Item Value Reference Range Interpretation Comments Mean Corpuscular Hemoglobin Concent (test code = 786-4) 34.6 31-35 [facility] HospitalRed Cell Distribution Dwnhm7666-08-96 01:16:00* Test Item Value Reference Range Interpretation Comments Red Cell Distribution Width (test code = 20223-5) 12.6 11.7 -14.4 [facility] HospitalPlatelet Fgoif7529-20-21 01:16:00* Test Item Value Reference Range Interpretation Comments Platelet Count (test code = 777-3) 227 140-360 [facility] HospitalNeutrophils (%) (Auto)2019-08-17 01:16:00 * Test Item Value Reference Range Interpretation Comments Neutrophils (%) (Auto) (test code = 32987-8) 69.9 38.7-80.0 [facility] HospitalLymphocytes (%) (Auto)2019-08-17 01:16:00 * Test Item Value Reference Range Interpretation Comments Lymphocytes (%) (Auto) (test code = 736-9) 22.5 18.0-39.1 [facility] HospitalMonocytes (%) (Auto)2019-08-17 01:16:00* Test Item Value Reference Range Interpretation Comments Monocytes (%) (Auto) (test code = 5905-5) 6.3 4.4-11.3 [facility] HospitalEosinophils (%) (Auto)2019-08-17 01:16:00 * Test Item Value Reference Range Interpretation Comments Eosinophils (%) (Auto) (test code = 713-8) 0.7 0.0-6.0 [facility] HospitalBasophils (%) (Auto)2019-08-17 01:16:00* Test Item Value Reference Range Interpretation Comments Basophils (%) (Auto) (test code = 706-2) 0.3 0.0-1.0 [facility] HospitalIM GRANULOCYTES %2019-08-17 01:16:00* Test Item Value Reference Range Interpretation Comments IM GRANULOCYTES % (test code = IM GRANULOCYTES %) 0.3 0.0- 1.0 [facility] HospitalNeutrophils # (Auto)2019-08-17 01:16:00* Test Item Value Reference Range Interpretation Comments Neutrophils # (Auto) (test code = 751-8) 8.1 2.1-6.9 H [facility] HospitalLymphocytes # (Auto)2019-08-17 01:16:00* Test Item Value Reference Range Interpretation Comments Lymphocytes # (Auto) (test code = 07339-1) 2.6 1.0-3.2 [facility]Monocytes # (Auto)2019-08-17 01:16:00* Test Item Value Reference Range Interpretation Comments Monocytes # (Auto) (test code = 742-7) 0.7 0.2-0.8 [facility] HospitalEosinophils # (Auto)2019-08-17 01:16:00* Test Item Value Reference Range Interpretation Comments Eosinophils # (Auto) (test code = 711-2) 0.1 0.0-0.4 [facility] HospitalBasophils # (Auto)2019-08-17 01:16:00* Test Item Value Reference Range Interpretation Comments Basophils # (Auto) (test code = 704-7) 0.0 0.0-0.1 [facility] HospitalAbsolute Immature Granulocyte (auto 2019-08-17 01:16:00* Test Item Value Reference Range Interpretation Comments Absolute Immature Granulocyte (auto (chiquita t code = Absolute Immature Granulocyte (auto) 0.04 0-0.1 [facility]odium Vtqrz0040-11-35 00:34:00* Test Item Value Reference Range Interpretation Comments Sodium Level (test code = 2951-2) 132 136-145 L [facility] HospitalPotassium Ytjkg1758-54-66 00:34:00* Test Item Value Reference Range Interpretation Comments Potassium Level (test code = 2823-3) 4.0 3.5-5.1 [facility] HospitalChloride Ktwki4386-97-23 00:34:00* Test Item Value Reference Range Interpretation Comments Chloride Level (test code = 2075-0) 93 98-107 L [facility] HospitalCarbon Dioxide Zqanh2936-92-12 00:34:00* Test Item Value Reference Range Interpretation Comments Carbon Dioxide Level (test code = 2028-9) 23 22-29 [facility] HospitalAnion Qgy0181-49-81 00:34:00* Test Item Value Reference Range Interpretation Comments Anion Gap (test code = 97339-7) 20.0 8-16 H [facility] HospitalBlood Urea Miovoowm8603-14-67 00:34:00* Test Item Value Reference Range Interpretation Comments Blood Urea Nitrogen (test code = 3094-0) 7 7-26 [facility] HospitalCreatinine2019-11-05 00:34:00* Test Item Value Reference Range Interpretation Comments Creatinine (test code = 2160-0) 0.93 0.57-1.11 [facility] HospitalBUN/Creatinine Piyxp2391-59-58 00:34:00* Test Item Value Reference Range Interpretation Comments BUN/Creatinine Ratio (test code = 3097-3) 8 6- [facility] HospitalEstimat Glomerular Filtration Rate 2019-08-17 00:34:00* Test Item Value Reference Range Interpretation Comments Estimat Glomerular Filtration Rate (test code = 070069582) > 60 >60 Ranges were taken from the National Kidney Disease Education Program and the [facility] literature.Reference ranges:60 or greater: Qhgrtd84-54 ( for 3 consecutive months): Chronic kidney disease 15 or less: Kidney failureHouston Methodist Willowbrook HospitalGlucose Oybjt4918-04-53 00:34:00* Test Item Value Reference Range Interpretation Comments Glucose Level (test code = JNM1281) 688 74-118 HH Results repeated and called to JOJO ROSA RN at 0033 on 08/17/[address]. Read back and verified.[facility] HospitalCalcium Ttqcq5360-56-71 00:34:00* Test Item Value Reference Range Interpretation Comments Calcium Level (test code = 55959-4) 10.0 8.4-10.2 [facility] HospitalDIABETIC FOOT SRCP6326-11-71 11:47:47 Ena Stevens PA 08/14/2019 7:30 PMDiabetic Foot Exam was performed at 08/14/2019 11:47 AM. Right foot sensation is normal, right foot pulses are isabel l, right foot appearance is normal. Left foot sensation is normal, left foot p ulses are normal, left foot appearance is normal. [facility] Gdfzf9085-97-17 20:41:00* Test Item Value Reference Range Interpretation Comments Hepatitis C Virus (HCV) Antibody (test code = 96704-4) Negative Negative Hep B Surface Ag (test code = 5196-1) Negative Negative Hep A Vir Ab IgM (test code = 33076-6) Negative Negative Hep B Core Ab IgM (test code = 38046-0) Negative Negative Lab Interpretation (test code = 25598-2) Normal [facility] [Thyroid Stimulating Hormone]2019-07-28 20:02:00* Test Item Value Reference Range Interpretation Comments TSH (test code = 08713094) 1.41 0.57- 3.74 uIU/mL If , please see the following reference ranges (not verified by lab): 1st Trimester: 0.05 -3.70 uIU/mL2nd Trimester: 0.31 -4.35 uIU/mL3rd Trimester: 0.41 - 5.18 uIU/mL Lab Interpretation (test code = 36117-5) Normal [facility]HIV-1/HIV-2 Routine Tryifgynr4581-76-40 13:44:00* Test Item Value Reference Range Interpretation Comments HIV Ag/Ab Combo (test code = 43197-8) Negative Negative Lab Interpretation (test code = 54783-9) Normal [facility] HospitalSyphilis Screen for Nlpatjzjj8322-10-59 09:20:00* Test Item Value Reference Range Interpretation Comments TPA (test code = 54876-4) Negative Negative, Equivocal Final Report (test code = 69436-6) Negative Negative Lab Interpretation (test code = 09771-0) Normal [facility] HospitalLipid Kdswrvb1770-23-63 08:06:00* Test Item Value Reference Range Interpretation Comments Cholesterol (test code = 2093-3) 221.0 mg/dL <=200.0 H Triglyceride (test code = 79103026) 308 mg/dL <150 H HDL (test code = 2085-9) 41.0 mg/dL See Reference Range Narrative . LDL (test code = 13290-1) 118 mg/dL <100 H Op timal: < 100.0 mg/dLNear Optimal: 120-129 mg/dLBorderline: 130-159 mg/dLHigh: 160-189 mg/dLVery High: >=190 mg/dL Patient Fasting? (test code = 73531411) Yes Lab Interpretation (test code = 93620-9) Abnormal [facility] HospitalLiver Auqtjft1692-31-81 08:06:00* Test Item Value Reference Range Interpretation Comments Bilirubin, Total (test code = 2885-2) 0.3 mg/dL 0.2-1.2 Alkaline Phosphatase (test code = 52465946) 93 U/L 34-104 AST (test code = 45301329) 14 U/L 13-39 Direct Bilirubin (test code = 1968-7) 0.0 mg/dL 0-0.2 ALT (test code = 29097435) 13 U/L 7-52 Albumin (test code = 40613-6) 4.3 g/dL 3.7-5.3 Lab Interpretation (test code = 03892-9) Normal [facility] HospitalCBC/Atib2984-34-36 07:27:00* Test Item Value Reference Range Interpretation [...] 33.3 g/dL 32-36 RDW (test code = 65339-0) 39.8 fL 36.4-46.3 Platelet (test code = 777-3) 240 K/uL 150-400 Mean Platelet Volume (test code = 53400-3) 11.6 fL 9.4-12.4 Percent NRBC (test code = 38859987) 0.0 % Neutrophil (test code = 770-8) 52.2 % 34-70 Lymphs (test code = 736-9) 37.9 % 20-50 Monocytes (test code = 5905-5) 8.4 % 5-12 Eos (test code = 713-8) 0.9 % 0.7-5 Basos (test code = 706-2) 0.6 % 0.1-1.2 Immature Granulocytes (test code = 67306929) 0.0 % 0-0.5 Neutrophils (Absolute) (test code = 82944401) 2.41 K/uL 1.56-6.1 3 Lymphs (Absolute) (test code = 24920903) 1.75 K/uL 1.18-3.74 Monocytes(Absolute) (test code = 12004131) 0.39 K/uL 0.24-0.36 H Eos (Absolute) (test code = 29581870) 0.04 K/uL 0.04-0.36 Baso (Absolute) (test code = 83112366) 0.03 K/uL 0.01-0.08 Immature Grans (Abs) (test code = 91156397) 0.00 K/uL 0-0.03 Absolute NRBC (test code = 57880663) 0.00 K/uL Lab Interpretation (test code = 66616-9) [facility] DNA Vntdzqrqsnvbg7348-99-01 18:07:00* Test Item Value Reference Range Interpretation Comments Chlamydia trachomatis (test code = 35164-6) Negative Negative N. gonorrhoeae (test code = 93494-8) Negative Negative KEO (test code = KEO) This test utilizes Atlas Spine A ptima Combo 2 Assay for target amplification of rRNA for the qualitative detection of Chlamydia trachomatis and Neisseria gonorrhoeae. Lab Interpretation (test code = 22969-8) Normal [facility] Pgozhh6604-03-34 15:00:00* Test Item Value Reference Range Interpretation Comments Opiate, Ur (test code = 67028-6) Positive Negative A Calibrated Standard: Morphine Positive if urine level > or = 300 ng/dL Amphetamine (test code = 95518-4) Negative Negative Calibrated Standard: D- Methamphetamine Positive if urine level > or = 1000 ng/mL Barbiturate (test code = 36807-8) Negative Negative Calibrated Standard: Secobarbital Positive if urine level is > or = 200 ng/mL Benzodiazepine (test code = 31310-9) Negative Negative Calibrated Standard: Lormethazepam Positive if urine level is > or = 200 ng/mL Cocaine (test code = 43705-3) Negative Negative Calibrated Standard: Benzoylecgonine Positive if urine level > or = 300 ng/dL PCP (test code = 39733-5) Negative Negative C alibrated Standard: Phencyclidine Positive if urine level > or = 25 ng/dL Cannabinoid (test code = 56132-6) Negative Negative Calibrated Standard: 11 nor-delta(9)-THC carboxylic acid Positive if urine level > or = 50 ng/mL Lab Interpretation (test code = 37593-2) Abnormal [facility] BMP - In Lab (STAT)2019-07-27 14:01:00* Test Item Value Reference Range Interpretation Comments Hold Specimen (test code = 58915862) Complete [facility] Ewosvyv3172-53-88 23:29:00* Test Item Value Reference Range Interpretation Comments Bedside Glucose (test code = 21797-3) 300 70-120 H Meter ID: [id number] [facility] Glucose 2019-06-17 23:29:00* Test Item Value Reference Range Interpretation Comments Bedside Glucose (test code = 55258-3) 300 70-120 H Meter ID: [id number] Methodist Willow[facility] HospitalBlood Urea Nitrogen 2019-06-17 22:47:00* Test Item Value Reference Range Interpretation Comments Blood Urea Nitrogen (test code = 3094-0) 05-07 [facility] HospitalBUN/Creatinine Nmhqp1455-09-49 22:47:00* Test Item Value Reference Range Interpretation Comments BUN/Creatinine Ratio (test code = 3097-3) 04-06 [facility] HospitalBlcuy[facility] Urea Ttzjznla8399-13-40 22:47:00* Test Item Value Reference Range Interpretation Comments Blood Urea Nitrogen (test code = 3094-0) 05-07 [facility] HospitalBUN/Creatinine Mipqq2415-56-16 22:47:00* Test Item Value Reference Range Interpretation Comments BUN/Creatinine Ratio (test code = 3097-3) 04-06 [facility]odium Svfxj9752-51-54 22:28:00* Test Item Value Reference Range Interpretation Comments Sodium Level (test code = 2951-2) 132 136-145 L [facility] HospitalPotassium Hofra0544-66-64 22:28:00* Test Item Value Reference Range Interpretation Comments Potassium Level (test code = 2823-3) 4.2 3.5-5.1 [facility] HospitalChloride Jqfon3623-78-32 22:28:00* Test Item Value Reference Range Interpretation Comments Chloride Level (test code = 2075-0) 93 98-107 L [facility] HospitalCarbon Dioxide Sivxd7925-89-74 22:28:00* Test Item Value Reference Range Interpretation Comments Carbon Dioxide Level (test code = 8-9) 29 22-29 [facility] HospitalAnion Zpg5609-57-81 22:28:00* Test Item Value Reference Range Interpretation Comments Anion Gap (test code = 19338-0) 14.2 8-16 [facility] HospitalCreatinine2019-09-05 22:28:00* Test Item Value Reference Range Interpretation Comments Creatinine (test code = 2160-0) 0.83 0.57-1.11 [facility] HospitalEstimat Glomerular Filtration Rate 2019-06-17 22:28:00* Test Item Value Reference Range Interpretation Comments Estimat Glomerular Filtration Rate (test code = 370364417) > 60 >60 Ranges were taken from the National Kidney Disease Education Program and the [facility] Kid[facility] Foundation literature.Reference ranges:60 or greater: Wyzmpz11-37 ( for 3 consecutive months): Chronic kidney disease 15 or less: Kidney failureHouston Methodist Willowbrook HospitalGlucose Tizuv7785-56-67 22:28:00* Test Item Value Reference Range Interpretation Comments Glucose Level (test code = KNH7393) 534 74-118 HH Results repeated and called to SHEKHAR ROSA at 2227 on 06/17/19 by MARIEL TSANG. Read back and verified.[facility] HospitalCalcium Lqvze0227-99-55 22:28:00* Test Item Value Reference Range Interpretation Comments Calcium Level (test code = 06891-4) 10.7 8.4-10.2 H [facility] HospitalMagnesium Cgnnm1741-87-95 22:28:00* Test Item Value Reference Range Interpretation Comments Magnesium Level (test code = 67012-8) 1.6 1.3-2.1 [facility] HospitalTotal Qkzorjwsq0763-03-26 22:28:00* Test Item Value Reference Range Interpretation Comments Total Bilirubin (test code = 1975-2) 0.2 0.2-1.2 [facility] HospitalAspartate Amino Transf (AST/SGOT) 2019-06-17 22:28:00* Test Item Value Reference Range Interpretation Comments Aspartate Amino Transf (AST/SGOT) (test code = Aspartate Amino Transf (AST/SGOT)) 9 5-34 [facility] HospitalAlanine Aminotransferase (ALT/SGPT) 2019-06-17 22:28:00* Test Item Value Reference Range Interpretation Comments Alanine Aminotransferase (ALT/SGPT) (test code = 1742-6) 11 0-55 [facility] HospitalTotal Lrqhnqy6405-00-54 22:28:00* Test Item Value Reference Range Interpretation Comments Total Protein (test code = 2885-2) 7.0 6.5-8.1 [facility] HospitalAlbumin2019-09-05 22:28:00* Test Item Value Reference Range Interpretation Comments Albumin (test code = 1751-7) 3.7 3.5-5.0 [facility] HospitalGlobulin2019-09-05 22:28:00* Test Item Value Reference Range Interpretation Comments Globulin (test code = 64783-5) 3.3 2.3-3.5 [facility] HospitalAlbumin/Globulin Kyang9812-85-50 22:28:00 * Test Item Value Reference Range Interpretation Comments Albumin/Globulin Ratio (test code = 1759-0) 1.1 0.8-2.0 [facility] HospitalAlkaline Cqjoetkojza1127-82-91 22:28:00* Test Item Value Reference Range Interpretation Comments Alkaline Phosphatase (test code = 6768-6) 132 40-150 [facility] Hospitalodium Qqakn0879-74-37 22:28:00* Test Item Value Reference Range Interpretation Comments Sodium Level (test code = 2951-2) 132 136-145 L [facility] HospitalPotassium Litlz3838-22-65 22:28:00* Test Item Value Reference Range Interpretation Comments Potassium Level (test code = 2823-3) 4.2 3.5-5.1 [facility] HospitalChloride Bbbtj9325-12-90 22:28:00* Test Item Value Reference Range Interpretation Comments Chloride Level (test code = 2075-0) 93 98-107 L [facility] HospitalCarbon Dioxide Jfdkd6835-28-18 22:28:00* Test Item Value Reference Range Interpretation Comments Carbon Dioxide Level (test code = 8-9) 29 22-29 [facility] HospitalAnion Dlc3320-61-94 22:28:00* Test Item Value Reference Range Interpretation Comments Anion Gap (test code = 49349-0) 14.2 8-16 [facility] HospitalCreatinine2019-09-05 22:28:00* Test Item Value Reference Range Interpretation Comments Creatinine (test code = 2160-0) 0.83 0.57-1.11 [facility] HospitalEstimat Glomerular Filtration Rate 2019-06-17 22:28:00* Test Item Value Reference Range Interpretation Comments Estimat Glomerular Filtration Rate (test code = 399050144) > 60 >60 Ranges were taken from the National Kidney Disease Education Program and the [facility] Kid[facility] Foundation literature.Reference ranges:60 or greater: Rgkekv68-88 ( for 3 consecutive months): Chronic kidney disease 15 or less: Kidney failureHouston Methodist Willowbrook HospitalGlucose Cgkau3240-50-04 22:28:00* Test Item Value Reference Range Interpretation Comments Glucose Level (test code = XDK9858) 534 74-118 HH Results repeated and called to SHEKHAR ROSA at 2227 on 06/17/19 by MARIEL TSANG. Read back and verified.[facility] HospitalCalcium Eaupk4490-72-73 22:28:00* Test Item Value Reference Range Interpretation Comments Calcium Level (test code = 94072-6) 10.7 8.4-10.2 H [facility] HospitalMagnesium Rijpe1857-77-44 22:28:00* Test Item Value Reference Range Interpretation Comments Magnesium Level (test code = 26120-8) 1.6 1.3-2.1 [facility] Slvgamlil3161-25-81 22:28:00* Test Item Value Reference Range Interpretation Comments Total Bilirubin (test code = 1975-2) 0.2 0.2-1.2 [facility] HospitalAspartate Amino Transf (AST/SGOT) 2019-06-17 22:28:00* Test Item Value Reference Range Interpretation Comments Aspartate Amino Transf (AST/SGOT) (test code = Aspartate Amino Transf (AST/SGOT)) 9 5-34 [facility] HospitalAlanine Aminotransferase (ALT/SGPT) 2019-06-17 22:28:00* Test Item Value Reference Range Interpretation Comments Alanine Aminotransferase (ALT/SGPT) (test code = 1742-6) 11 0-55 [facility] Tgrfnki7442-39-76 22:28:00* Test Item Value Reference Range Interpretation Comments Total Protein (test code = 2885-2) 7.0 6.5-8.1 [facility] HospitalAlbumin2019-09-05 22:28:00* Test Item Value Reference Range Interpretation Comments Albumin (test code = 1751-7) 3.7 3.5-5.0 [facility] HospitalGlobulin2019-09-05 22:28:00* Test Item Value Reference Range Interpretation Comments Globulin (test code = 37735-6) 3.3 2.3-3.5 [facility] HospitalAlbumin/Globulin Vijaw6166-98-65 22:28:00 * Test Item Value Reference Range Interpretation Comments Albumin/Globulin Ratio (test code = 1759-0) 1.1 0.8-2.0 [facility] HospitalAlkaline Nzowlskgacj9065-26-89 22:28:00* Test Item Value Reference Range Interpretation Comments Alkaline Phosphatase (test code = 6768-6) 132 40-150 [facility] HospitalMagnesium Itonl1218-07-59 22:28:00* Test Item Value Reference Range Interpretation Comments Magnesium Level (test code = 70850-5) 1.6 1.3-2.1 [facility] Zutkmfuwb8267-54-68 22:28:00* Test Item Value Reference Range Interpretation Comments Total Bilirubin (test code = 1975-2) 0.2 0.2-1.2 [facility] HospitalAspartate Amino Transf (AST/SGOT) 2019-06-17 22:28:00* Test Item Value Reference Range Interpretation Comments Aspartate Amino Transf (AST/SGOT) (test code = Aspartate Amino Transf (AST/SGOT)) 9 5-34 [facility] HospitalAlanine Aminotransferase (ALT/SGPT) 2019-06-17 22:28:00* Test Item Value Reference Range Interpretation Comments Alanine Aminotransferase (ALT/SGPT) (test code = 1742-6) 11 0-55 [facility] HospitalTotal Znzgkha1437-43-93 22:28:00* Test Item Value Reference Range Interpretation Comments Total Protein (test code = 2885-2) 7.0 6.5-8.1 [facility] HospitalAlbumin2019-09-05 22:28:00* Test Item Value Reference Range Interpretation Comments Albumin (test code = 1751-7) 3.7 3.5-5.0 [facility] HospitalGlobulin2019-09-05 22:28:00* Test Item Value Reference Range Interpretation Comments Globulin (test code = 44684-2) 3.3 2.3-3.5 [facility] HospitalAlbumin/Globulin Bqubo2610-53-92 22:28:00 * Test Item Value Reference Range Interpretation Comments Albumin/Globulin Ratio (test code = 1759-0) 1.1 0.8-2.0 [facility] HospitalAlkaline Xlhytfwyxxq9768-97-38 22:28:00* Test Item Value Reference Range Interpretation Comments Alkaline Phosphatase (test code = 6768-6) 132 40-150 [facility] HospitalMagnesium Qdonf3162-24-39 22:28:00* Test Item Value Reference Range Interpretation Comments Magnesium Level (test code = 24745-1) 1.6 1.3-2.1 [facility] HospitalMagnesium Thnam8418-08-10 22:28:00* Test Item Value Reference Range Interpretation Comments Magnesium Level (test code = 88227-9) 1.6 1.3-2.1 [facility]2019-09-05 22:28:00* Test Item Value Reference Range Interpretation Comments Magnesium Level (test code = 43597-4) 1.6 1.3-2.1 [facility]2019-09-05 22:28:00* Test Item Value Reference Range Interpretation Comments Magnesium Level (test code = 95867-4) 1.6 1.3-2.1 [facility] HospitalInfluenza Virus Types A,B Antigen 2019-06-17 22:18:00* Test Item Value Reference Range Interpretation Comments Influenza Virus Types A,B Antigen (test code = 89695-0) NEGATIVE NEGATIVE [facility] HospitalInfluenza Virus Types A,B Antigen 2019-06-17 22:18:00* Test Item Value Reference Range Interpretation Comments Influenza Virus Types A,B Antigen (test code = 52920-9) NEGATIVE NEGATIVE [facility] HospitalInfluenza Virus Types A,B Antigen 2019-06-17 22:18:00* Test Item Value Reference Range Interpretation Comments Influenza Virus Types A,B Antigen (test code = 23482-6) NEGATIVE NEGATIVE [facility] HospitalInfluenza Virus Types A,B Antigen 2019-06-17 22:18:00* Test Item Value Reference Range Interpretation Comments Influenza Virus Types A,B Antigen (test code = 34101-8) NEGATIVE NEGATIVE [facility] HospitalInfluenza Virus Types A,B Antigen 2019-06-17 22:18:00* Test Item Value Reference Range Interpretation Comments Influenza Virus Types A,B Antigen (test code = 31780-9) NEGATIVE NEGATIVE [facility] HospitalInfluenza Virus Types A,B Antigen 2019-06-17 22:18:00* Test Item Value Reference Range Interpretation Comments Influenza Virus Types A,B Antigen (test code = 27227-0) NEGATIVE NEGATIVE [facility] HospitalGroup A Streptococcus Ihoczl9234-70-81 22:08:00* Test Item Value Reference Range Interpretation Comments Group A Streptococcus Screen (test code = 09375-2) NEGATIVE NEG ATIVE [facility] HospitalGroup A Streptococcus Gfmmzu5015-62-61 22:08:00* Test Item Value Reference Range Interpretation Comments Group A Streptococcus Screen (test code = 50294-9) NEGATIVE NEG ATIVE [facility] HospitalGroup A Streptococcus Cpmykt7211-59-50 22:08:00* Test Item Value Reference Range Interpretation Comments Group A Streptococcus Screen (test code = 87017-8) NEGATIVE NEG ATIVE [facility] HospitalGroup A Streptococcus Tpqzmj0264-98-52 22:08:00* Test Item Value Reference Range Interpretation Comments Group A Streptococcus Screen (test code = 16428-1) NEGATIVE NEG ATIVE [facility] HospitalGroup A Streptococcus Nzbiry2822-27-17 22:08:00* Test Item Value Reference Range Interpretation Comments Group A Streptococcus Screen (test code = 64129-9) NEGATIVE NEG ATIVE [facility] HospitalGroup A Streptococcus Zchzww0971-16-43 22:08:00* Test Item Value Reference Range Interpretation Comments Group A Streptococcus Screen (test code = 73454-9) NEGATIVE NEG IVE [facility] HospitalWhite Blood Akoyc2499-20-08 22:04:00* Test Item Value Reference Range Interpretation Comments White Blood Count (test code = 6690-2) 7.25 4.8-10.8 [facility] HospitalRed Blood Fzkls5864-94-87 22:04:00* Test Item Value Reference Range Interpretation Comments Red Blood Count (test code = 789-8) 5.01 3.6-5.1 [facility] HospitalHemoglobin2019-09-05 22:04:00* Test Item Value Reference Range Interpretation Comments Hemoglobin (test code = 03229-5) 14.4 12.0-16.0 [facility] HospitalHematocrit2019-09-05 22:04:00* Test Item Value Reference Range Interpretation Comments Hematocrit (test code = 4544-3) 41.1 34.2-44.1 [facility] HospitalMean Corpuscular Tphifc2255-01-67 22:04:00* Test Item Value Reference Range Interpretation Comments Mean Corpuscular Volume (test code = 787-2) 82.0 81-99 [facility] HospitalMean Corpuscular Yfwbviuivv8991-89-89 22:04:00* Test Item Value Reference Range Interpretation Comments Mean Corpuscular Hemoglobin (test code = 785-6) 28.7 28-32 [facility] HospitalMean Corpuscular Hemoglobin Concent 2019-06-17 22:04:00* Test Item Value Reference Range Interpretation Comments Mean Corpuscular Hemoglobin Concent (test code = 786-4) 35.0 31-35 [facility] HospitalRed Cell Distribution Exwnm7166-58-35 22:04:00* Test Item Value Reference Range Interpretation Comments Red Cell Distribution Width (test code = 12291-2) 11.8 11.7 -14.4 [facility] HospitalPlatelet Idjqt8863-02-07 22:04:00* Test Item Value Reference Range Interpretation Comments Platelet Count (test code = 777-3) 194 140-360 [facility] HospitalNeutrophils (%) (Auto)2019-06-17 22:04:00 * Test Item Value Reference Range Interpretation Comments Neutrophils (%) (Auto) (test code = 59672-4) 45.1 38.7-80.0 [facility]Lymph[facility] (%) (Auto)2019-06-17 22:04:00 * Test Item Value Reference Range Interpretation Comments Lymphocytes (%) (Auto) (test code = 736-9) 47.2 18.0-39.1 H [facility]Monocytes (%) (Auto)2019-06-17 22:04:00* Test Item Value Reference Range Interpretation Comments Monocytes (%) (Auto) (test code = 5905-5) 6.3 4.4-11.3 [facility]Eosinophils (%) (Auto)2019-06-17 22:04:00 * Test Item Value Reference Range Interpretation Comments Eosinophils (%) (Auto) (test code = 713-8) 0.7 0.0-6.0 [facility]Basophils (%) (Auto)2019-06-17 22:04:00* Test Item Value Reference Range Interpretation Comments Basophils (%) (Auto) (test code = 706-2) 0.4 0.0-1.0 [facility] HospitalIM GRANULOCYTES %2019-06-17 22:04:00* Test Item Value Reference Range Interpretation Comments IM GRANULOCYTES % (test code = IM GRANULOCYTES %) 0.3 0.0- 1.0 [facility] HospitalNeutrophils # (Auto)2019-06-17 22:04:00* Test Item Value Reference Range Interpretation Comments Neutrophils # (Auto) (test code = 751-8) 3.3 2.1-6.9 [facility] HospitalLymphocytes # (Auto)2019-06-17 22:04:00* Test Item Value Reference Range Interpretation Comments Lymphocytes # (Auto) (test code = 13939-5) 3.4 1.0-3.2 H [facility] HospitalMonocytes # (Auto)2019-06-17 22:04:00* Test Item Value Reference Range Interpretation Comments Monocytes # (Auto) (test code = 742-7) 0.5 0.2-0.8 [facility] HospitalEosinophils # (Auto)2019-06-17 22:04:00* Test Item Value Reference Range Interpretation Comments Eosinophils # (Auto) (test code = 711-2) 0.1 0.0-0.4 [facility] HospitalBasophils # (Auto)2019-06-17 22:04:00* Test Item Value Reference Range Interpretation Comments Basophils # (Auto) (test code = 704-7) 0.0 0.0-0.1 [facility] HospitalAbsolute Immature Granulocyte (auto 2019-06-17 22:04:00* Test Item Value Reference Range Interpretation Comments Absolute Immature Granulocyte (auto (chiquita t code = Absolute Immature Granulocyte (auto) 0.02 0-0.1 [facility] HospitalWhite Blood Mwbil8774-64-48 22:04:00* Test Item Value Reference Range Interpretation Comments White Blood Count (test code = 6690-2) 7.25 4.8-10.8 [facility] HospitalRed Blood Nktkg8590-22-57 22:04:00* Test Item Value Reference Range Interpretation Comments Red Blood Count (test code = 789-8) 5.01 3.6-5.1 [facility] HospitalHemoglobin2019-09-05 22:04:00* Test Item Value Reference Range Interpretation Comments Hemoglobin (test code = 81375-8) 14.4 12.0-16.0 [facility] HospitalHematocrit2019-09-05 22:04:00* Test Item Value Reference Range Interpretation Comments Hematocrit (test code = 4544-3) 41.1 34.2-44.1 [facility] HospitalMean Corpuscular Cmzdbm1367-27-18 22:04:00* Test Item Value Reference Range Interpretation Comments Mean Corpuscular Volume (test code = 787-2) 82.0 81-99 [facility] HospitalMean Corpuscular Cpabotqacl0437-06-85 22:04:00* Test Item Value Reference Range Interpretation Comments Mean Corpuscular Hemoglobin (test code = 785-6) 28.7 28-32 [facility] HospitalMean Corpuscular Hemoglobin Concent 2019-06-17 22:04:00* Test Item Value Reference Range Interpretation Comments Mean Corpuscular Hemoglobin Concent (test code = 786-4) 35.0 31-35 [facility] HospitalRed Cell Distribution Nixvo4308-58-78 22:04:00* Test Item Value Reference Range Interpretation Comments Red Cell Distribution Width (test code = 88696-6) 11.8 11.7 -14.4 [facility] HospitalPlatelet Cbyaw1837-17-65 22:04:00* Test Item Value Reference Range Interpretation Comments Platelet Count (test code = 777-3) 194 140-360 [facility] HospitalNeutrophils (%) (Auto)2019-06-17 22:04:00 * Test Item Value Reference Range Interpretation Comments Neutrophils (%) (Auto) (test code = 43824-4) 45.1 38.7-80.0 [facility] HospitalLymphocytes (%) (Auto)2019-06-17 22:04:00 * Test Item Value Reference Range Interpretation Comments Lymphocytes (%) (Auto) (test code = 736-9) 47.2 18.0-39.1 H [facility] HospitalMonocytes (%) (Auto)2019-06-17 22:04:00* Test Item Value Reference Range Interpretation Comments Monocytes (%) (Auto) (test code = 5905-5) 6.3 4.4-11.3 [facility] HospitalEosinophils (%) (Auto)2019-06-17 22:04:00 * Test Item Value Reference Range Interpretation Comments Eosinophils (%) (Auto) (test code = 713-8) 0.7 0.0-6.0 [facility] HospitalBasophils (%) (Auto)2019-06-17 22:04:00* Test Item Value Reference Range Interpretation Comments Basophils (%) (Auto) (test code = 706-2) 0.4 0.0-1.0 [facility] HospitalIM GRANULOCYTES %2019-06-17 22:04:00* Test Item Value Reference Range Interpretation Comments IM GRANULOCYTES % (test code = IM GRANULOCYTES %) 0.3 0.0- 1.0 [facility] HospitalNeutrophils # (Auto)2019-06-17 22:04:00* Test Item Value Reference Range Interpretation Comments Neutrophils # (Auto) (test code = 751-8) 3.3 2.1-6.9 [facility] HospitalLymphocytes # (Auto)2019-06-17 22:04:00* Test Item Value Reference Range Interpretation Comments Lymphocytes # (Auto) (test code = 58024-6) 3.4 1.0-3.2 H [facility] HospitalMonocytes # (Auto)2019-06-17 22:04:00* Test Item Value Reference Range Interpretation Comments Monocytes # (Auto) (test code = 742-7) 0.5 0.2-0.8 [facility] HospitalEosinophils # (Auto)2019-06-17 22:04:00* Test Item Value Reference Range Interpretation Comments Eosinophils # (Auto) (test code = 711-2) 0.1 0.0-0.4 [facility] HospitalBasophils # (Auto)2019-06-17 22:04:00* Test Item Value Reference Range Interpretation Comments Basophils # (Auto) (test code = 704-7) 0.0 0.0-0.1 [facility] HospitalAbsolute Immature Granulocyte (auto 2019-06-17 22:04:00* Test Item Value Reference Range Interpretation Comments Absolute Immature Granulocyte (auto (chiquita t code = Absolute Immature Granulocyte (auto) 0.02 0-0.1 [facility] HospitalCHEST 2 WGMTS5333-43-91 21:18:00 [facility] [address] [address] Patient Name: YOLETTE URIBE MR #: [id number] : 1975 Age/Sex: 43/F Req #: [id number] Adm Physician: Ordered by: BEVERLY MARTELL [employer] Report #: [id number] Location: ER Room/Bed: Procedure: [id number] DX/CH EST 2 VIEWS Exam Date: 06/17/19 [...] Dictated By: LILLIAM BOLES MD Electronically Sig nicki By: LILLIAM BOLES MD on 06/17/192118 Transcribed By: JEMAL on 2118 COPY TO: MARTELL,BEVERLY Farooq [employer] Urine [id number] 20:09:00* Test Item Value Reference Range Interpretation Comments Urine WBC (test code = 5821-4) 0-5 0-5 [facility] HospitalUrine [id number] 20:09:00* Test Item Value Reference Range Interpretation Comments Urine RBC (test code = 01920-2) NONE 0-5 [facility] HospitalUrine Fvdngboj8945-46-09 20:09:00* Test Item Value Reference Range Interpretation Comments Urine Bacteria (test code = 18644-3) RARE NONE [facility] HospitalUrine Epithelial Uwuom9096-34-20 20:09:00 * Test Item Value Reference Range Interpretation Comments Urine Epithelial Cells (test code = 00091-4) FEW NONE [facility] HospitalUrine AER0793-25-29 20:09:00* Test Item Value Reference Range Interpretation Comments Urine WBC (test code = 5821-4) 0-5 0-5 [facility] HospitalUrine [id number] 20:09:00* Test Item Value Reference Range Interpretation Comments Urine RBC (test code = 21260-3) NONE 0-5 [facility] HospitalUrine Fmxponnz2910-08-93 20:09:00* Test Item Value Reference Range Interpretation Comments Urine Bacteria (test code = 12838-4) RARE NONE [facility] HospitalUrine Epithelial Bylan7042-84-64 20:09:00 * Test Item Value Reference Range Interpretation Comments Urine Epithelial Cells (test code = 53269-5) FEW NONE [facility] HospitalUrine [id number] 20:09:00* Test Item Value Reference Range Interpretation Comments Urine WBC (test code = 5821-4) 0-5 0-5 [facility] HospitalUrine [id number] 20:09:00* Test Item Value Reference Range Interpretation Comments Urine RBC (test code = 82183-9) NONE 0-5 [facility] HospitalUrine Xovuerqg7289-92-30 20:09:00* Test Item Value Reference Range Interpretation Comments Urine Bacteria (test code = 48551-0) RARE NONE [facility] HospitalUrine Epithelial Zqxwh1555-17-52 20:09:00 * Test Item Value Reference Range Interpretation Comments Urine Epithelial Cells (test code = 79953-5) FEW NONE [facility] HospitalUrine EBX0240-03-92 20:09:00* Test Item Value Reference Range Interpretation Comments Urine WBC (test code = 5821-4) 0-5 0-5 [facility] HospitalUrine [id number] 20:09:00* Test Item Value Reference Range Interpretation Comments Urine RBC (test code = 63978-9) NONE 0-5 [facility] Bllpxomu6071-95-70 20:09:00* Test Item Value Reference Range Interpretation Comments Urine Bacteria (test code = 73514-0) RARE NONE [facility] HospitalUrine Epithelial Yvqij0753-23-68 20:09:00 * Test Item Value Reference Range Interpretation Comments Urine Epithelial Cells (test code = 20091-0) FEW NONE [facility] HospitalUrine [id number] 20:09:00* Test Item Value Reference Range Interpretation Comments Urine WBC (test code = 5821-4) 0-5 0-5 [facility] HospitalU[facility] [id number] 20:09:00* Test Item Value Reference Range Interpretation Comments Urine RBC (test code = 50063-6) NONE 0-5 [facility] HospitalUrine Jfgozbsw5107-00-09 20:09:00* Test Item Value Reference Range Interpretation Comments Urine Bacteria (test code = 47524-7) RARE NONE [facility] HospitalUrine Epithelial Wosjc1802-09-91 20:09:00 * Test Item Value Reference Range Interpretation Comments Urine Epithelial Cells (test code = 28399-0) FEW NONE [facility] HospitalUrine GHV6511-97-06 20:09:00* Test Item Value Reference Range Interpretation Comments Urine WBC (test code = 5821-4) 0-5 0-5 [facility] HospitalUrine [id number] 20:09:00* Test Item Value Reference Range Interpretation Comments Urine RBC (test code = 82932-4) NONE 0-5 [facility] HospitalUrine Ndsrohvh9372-72-17 20:09:00* Test Item Value Reference Range Interpretation Comments Urine Bacteria (test code = 47517-0) RARE NONE [facility] HospitalUrine Epithelial Hvobr2395-61-89 20:09:00 * Test Item Value Reference Range Interpretation Comments Urine Epithelial Cells (test code = 15096-9) FEW NONE [facility] HospitalU[facility] [id number] 20:09:00* Test Item Value Reference Range Interpretation Comments Urine WBC (test code = 5821-4) 0-5 0-5 [facility] [id number] 20:09:00* Test Item Value Reference Range Interpretation Comments Urine RBC (test code = 80055-3) NONE 0-5 [facility] HospitalU[facility] Ohozgbmy1048-72-39 20:09:00* Test Item Value Reference Range Interpretation Comments Urine Bacteria (test code = 73116-2) RARE NONE [facility] HospitalUrine Epithelial Pemms4269-22-61 20:09:00 * Test Item Value Reference Range Interpretation Comments Urine Epithelial Cells (test code = 39083-5) FEW NONE [facility] Lyoj0727-22-42 19:57:00* Test Item Value Reference Range Interpretation Comments Urine Test (test code = 2106-3) NEGATIVE NEGATIVE [facility] Ezay0452-19-37 19:57:00* Test Item Value Reference Range Interpretation Comments Urine Test (test code = 2106-3) NEGATIVE NEGATIVE [facility] Fnrw1173-13-21 19:57:00* Test Item Value Reference Range Interpretation Comments Urine Test (test code = 2106-3) NEGATIVE NEGATIVE [facility] Eoiai8630-38-34 19:56:00* Test Item Value Reference Range Interpretation Comments Urine Color (test code = 5778-6) YELLOW YELLOW [facility]Urine Ppiojhp8113-65-70 19:56:00* Test Item Value Reference Range Interpretation Comments Urine Clarity (test code = 48315-1) CLEAR CLEAR [facility] HospitalUrine Specific Urccyzs0689-70-54 19:56:00 * Test Item Value Reference Range Interpretation Comments Urine Specific [place] (test code = 5811-5) <=1.005 1.010-1.02 5 [facility] HospitalU[facility] [id number] 19:56:00* Test Item Value Reference Range Interpretation Comments Urine pH (test code = 44740-2) 6 5-7 [facility] Leukocyte Puyhlojc8181-35-02 19:56:00* Test Item Value Reference Range Interpretation Comments Urine Leukocyte Esterase (test code = 70370-4) NEGATIVE NEGATIV E [facility] Cvlkdsf6347-32-64 19:56:00* Test Item Value Reference Range Interpretation Comments Urine Nitrite (test code = 92353-9) NEGATIVE NEGATIVE [facility] Meacsax4939-50-48 19:56:00* Test Item Value Reference Range Interpretation Comments Urine Protein (test code = 21151-4) NEGATIVE NEGATIVE [facility] Glucose (UA)2019-06-17 19:56:00* Test Item Value Reference Range Interpretation Comments Urine Glucose (UA) (test code = 80838-0) 3+ NEGATIVE [facility] Crfyycq8577-70-92 19:56:00* Test Item Value Reference Range Interpretation Comments Urine Ketones (test code = 47401-5) NEGATIVE NEGATIVE [facility] Hzmicnhruatx6066-86-47 19:56:00* Test Item Value Reference Range Interpretation Comments Urine Urobilinogen (test code = 49788-1) 0.2 0.2-1 [facility] Wwmokpekt9957-56-85 19:56:00* Test Item Value Reference Range Interpretation Comments Urine Bilirubin (test code = 1977-8) NEGATIVE NEGATIVE [facility] Lxaia3054-75-25 19:56:00* Test Item Value Reference Range Interpretation Comments Urine Blood (test code = 64618-2) NEGATIVE NEGATIVE [facility] Trlrm4436-15-69 19:56:00* Test Item Value Reference Range Interpretation Comments Urine Color (test code = 5778-6) YELLOW YELLOW [facility] Rfcooat0224-72-21 19:56:00* Test Item Value Reference Range Interpretation Comments Urine Clarity (test code = 42275-8) CLEAR CLEAR [facility] Specific Dcnhsrv8811-44-94 19:56:00 * Test Item Value Reference Range Interpretation Comments Urine Specific [place] (test code = 5811-5) <=1.005 1.010-1.02 5 [facility] [id number] 19:56:00* Test Item Value Reference Range Interpretation Comments Urine pH (test code = 10505-1) 6 5-7 [facility] Leukocyte Uldjbsxt9843-03-15 19:56:00* Test Item Value Reference Range Interpretation Comments Urine Leukocyte Esterase (test code = 15019-1) NEGATIVE NEGATIV E [facility] Bxcompa0521-42-68 19:56:00* Test Item Value Reference Range Interpretation Comments Urine Nitrite (test code = 56050-7) NEGATIVE NEGATIVE [facility] Yzohoaq2350-20-78 19:56:00* Test Item Value Reference Range Interpretation Comments Urine Protein (test code = 28342-8) NEGATIVE NEGATIVE [facility] Glucose (UA)2019-06-17 19:56:00* Test Item Value Reference Range Interpretation Comments Urine Glucose (UA) (test code = 81791-9) 3+ NEGATIVE [facility] Tmyidbh4269-47-94 19:56:00* Test Item Value Reference Range Interpretation Comments Urine Ketones (test code = 42316-0) NEGATIVE NEGATIVE [facility] Tuhkiyjokejv1869-92-18 19:56:00* Test Item Value Reference Range Interpretation Comments Urine Urobilinogen (test code = 43415-9) 0.2 0.2-1 [facility] Vcvhwmygo3284-98-64 19:56:00* Test Item Value Reference Range Interpretation Comments Urine Bilirubin (test code = 1977-8) NEGATIVE NEGATIVE [facility] Rtorv2354-05-80 19:56:00* Test Item Value Reference Range Interpretation Comments Urine Blood (test code = 55579-6) NEGATIVE NEGATIVE [facility] Dasdy0496-95-92 19:56:00* Test Item Value Reference Range Interpretation Comments Urine Color (test code = 5778-6) YELLOW YELLOW [facility] Adbmybo8755-55-98 19:56:00* Test Item Value Reference Range Interpretation Comments Urine Clarity (test code = 58094-6) CLEAR CLEAR [facility] Specific Nzqftwu8721-86-19 19:56:00 * Test Item Value Reference Range Interpretation Comments Urine Specific [place] (test code = 5811-5) <=1.005 1.010-1.02 5 [facility] gS6887-35-93 19:56:00* Test Item Value Reference Range Interpretation Comments Urine pH (test code = 17881-5) 6 5-7 [facility] Leukocyte Palugnau4920-29-27 19:56:00* Test Item Value Reference Range Interpretation Comments Urine Leukocyte Esterase (test code = 49109-0) NEGATIVE NEGATIV E [facility] Gshpigv1592-05-83 19:56:00* Test Item Value Reference Range Interpretation Comments Urine Nitrite (test code = 86014-4) NEGATIVE NEGATIVE [facility] Cdzmngy6975-32-04 19:56:00* Test Item Value Reference Range Interpretation Comments Urine Protein (test code = 36941-8) NEGATIVE NEGATIVE [facility] Glucose (UA)2019-06-17 19:56:00* Test Item Value Reference Range Interpretation Comments Urine Glucose (UA) (test code = 44020-3) 3+ NEGATIVE [facility] Hjsawns2044-65-55 19:56:00* Test Item Value Reference Range Interpretation Comments Urine Ketones (test code = 26941-9) NEGATIVE NEGATIVE [facility] Mcavfhsveche3045-95-82 19:56:00* Test Item Value Reference Range Interpretation Comments Urine Urobilinogen (test code = 43207-1) 0.2 0.2-1 [facility] Xopjhwkll5534-26-26 19:56:00* Test Item Value Reference Range Interpretation Comments Urine Bilirubin (test code = 1977-8) NEGATIVE NEGATIVE [facility] Jpaah8568-80-56 19:56:00* Test Item Value Reference Range Interpretation Comments Urine Blood (test code = 57402-3) NEGATIVE NEGATIVE [facility] Sdzll9822-13-69 19:56:00* Test Item Value Reference Range Interpretation Comments Urine Color (test code = 5778-6) YELLOW YELLOW [facility] Djtmvvt5441-12-00 19:56:00* Test Item Value Reference Range Interpretation Comments Urine Clarity (test code = 76703-1) CLEAR CLEAR [facility] Specific Ghgzljs9452-82-46 19:56:00 * Test Item Value Reference Range Interpretation Comments Urine Specific [place] (test code = 5811-5) <=1.005 1.010-1.02 5 [facility] bI0224-58-54 19:56:00* Test Item Value Reference Range Interpretation Comments Urine pH (test code = 47965-0) 6 5-7 [facility] Leukocyte Doqpssyo9017-17-37 19:56:00* Test Item Value Reference Range Interpretation Comments Urine Leukocyte Esterase (test code = 00530-6) NEGATIVE NEGATIV E [facility] Zavhfdo5035-38-32 19:56:00* Test Item Value Reference Range Interpretation Comments Urine Nitrite (test code = 71765-1) NEGATIVE NEGATIVE [facility] Osrjmgo7992-69-48 19:56:00* Test Item Value Reference Range Interpretation Comments Urine Protein (test code = 28016-7) NEGATIVE NEGATIVE [facility] Glucose (UA)2019-06-17 19:56:00* Test Item Value Reference Range Interpretation Comments Urine Glucose (UA) (test code = 16151-1) 3+ NEGATIVE [facility] Lszgarx0046-81-24 19:56:00* Test Item Value Reference Range Interpretation Comments Urine Ketones (test code = 93610-5) NEGATIVE NEGATIVE [facility] Cwxqscuoltrk9312-51-65 19:56:00* Test Item Value Reference Range Interpretation Comments Urine Urobilinogen (test code = 08958-4) 0.2 0.2-1 [facility] Cycepbhtp1207-27-97 19:56:00* Test Item Value Reference Range Interpretation Comments Urine Bilirubin (test code = 1977-8) NEGATIVE NEGATIVE [facility] Gtscs4460-04-80 19:56:00* Test Item Value Reference Range Interpretation Comments Urine Blood (test code = 24693-3) NEGATIVE NEGATIVE [facility] Llwim0337-37-79 19:56:00* Test Item Value Reference Range Interpretation Comments Urine Color (test code = 5778-6) YELLOW YELLOW [facility] Potqfcr2152-97-29 19:56:00* Test Item Value Reference Range Interpretation Comments Urine Clarity (test code = 24901-6) CLEAR CLEAR [facility] Specific Xnbjkik4013-56-64 19:56:00 * Test Item Value Reference Range Interpretation Comments Urine Specific [place] (test code = 5811-5) <=1.005 1.010-1.02 5 [facility] mV3153-42-50 19:56:00* Test Item Value Reference Range Interpretation Comments Urine pH (test code = 01374-1) 6 5-7 [facility] Leukocyte Kkadsvnn3655-04-03 19:56:00* Test Item Value Reference Range Interpretation Comments Urine Leukocyte Esterase (test code = 53279-5) NEGATIVE NEGATIV E [facility] Cybbvsn8392-15-78 19:56:00* Test Item Value Reference Range Interpretation Comments Urine Nitrite (test code = 09036-6) NEGATIVE NEGATIVE [facility] Wqvmfod2887-75-39 19:56:00* Test Item Value Reference Range Interpretation Comments Urine Protein (test code = 89986-3) NEGATIVE NEGATIVE [facility] Glucose (UA)2019-06-17 19:56:00* Test Item Value Reference Range Interpretation Comments Urine Glucose (UA) (test code = 21911-7) 3+ NEGATIVE [facility] Rprnsxg8997-15-58 19:56:00* Test Item Value Reference Range Interpretation Comments Urine Ketones (test code = 46168-8) NEGATIVE NEGATIVE [facility] Ounhtfcvunys8265-88-58 19:56:00* Test Item Value Reference Range Interpretation Comments Urine Urobilinogen (test code = 79359-6) 0.2 0.2-1 [facility] Qookxnjda2593-28-03 19:56:00* Test Item Value Reference Range Interpretation Comments Urine Bilirubin (test code = 1977-8) NEGATIVE NEGATIVE [facility] Lsbty5440-62-83 19:56:00* Test Item Value Reference Range Interpretation Comments Urine Blood (test code = 71875-9) NEGATIVE NEGATIVE [facility] Ybzav7433-11-14 19:56:00* Test Item Value Reference Range Interpretation Comments Urine Color (test code = 5778-6) YELLOW YELLOW [facility] Fkwbwev4245-63-85 19:56:00* Test Item Value Reference Range Interpretation Comments Urine Clarity (test code = 75006-6) CLEAR CLEAR [facility] Specific Owmhdnc7171-03-12 19:56:00 * Test Item Value Reference Range Interpretation Comments Urine Specific [place] (test code = 5811-5) <=1.005 1.010-1.02 5 [facility] bR8292-56-48 19:56:00* Test Item Value Reference Range Interpretation Comments Urine pH (test code = 17481-6) 6 5-7 [facility] Leukocyte Lzfesonr3200-94-54 19:56:00* Test Item Value Reference Range Interpretation Comments Urine Leukocyte Esterase (test code = 74684-8) NEGATIVE NEGATIV E [facility] Fklcdqc0946-67-39 19:56:00* Test Item Value Reference Range Interpretation Comments Urine Nitrite (test code = 34400-0) NEGATIVE NEGATIVE [facility] Arkkxyc1267-67-15 19:56:00* Test Item Value Reference Range Interpretation Comments Urine Protein (test code = 00374-9) NEGATIVE NEGATIVE [facility] Glucose (UA)2019-06-17 19:56:00* Test Item Value Reference Range Interpretation Comments Urine Glucose (UA) (test code = 21005-4) 3+ NEGATIVE [facility] Fkzitzo1799-00-82 19:56:00* Test Item Value Reference Range Interpretation Comments Urine Ketones (test code = 70525-3) NEGATIVE NEGATIVE [facility] Kzyecmjvmnuy0641-58-61 19:56:00* Test Item Value Reference Range Interpretation Comments Urine Urobilinogen (test code = 47819-4) 0.2 0.2-1 [facility] Kpyskktqf8902-34-26 19:56:00* Test Item Value Reference Range Interpretation Comments Urine Bilirubin (test code = 1977-8) NEGATIVE NEGATIVE [facility] Vxiez3725-06-36 19:56:00* Test Item Value Reference Range Interpretation Comments Urine Blood (test code = 36031-7) NEGATIVE NEGATIVE [facility] Wwsig5956-65-20 19:56:00* Test Item Value Reference Range Interpretation Comments Urine Color (test code = 5778-6) YELLOW YELLOW [facility] Xhsefdl6884-30-48 19:56:00* Test Item Value Reference Range Interpretation Comments Urine Clarity (test code = 02917-7) CLEAR CLEAR [facility] Specific Gplvkug6575-77-95 19:56:00 * Test Item Value Reference Range Interpretation Comments Urine Specific [place] (test code = 5811-5) <=1.005 1.010-1.02 5 [facility] aC3424-31-01 19:56:00* Test Item Value Reference Range Interpretation Comments Urine pH (test code = 03757-0) 6 5-7 [facility] Leukocyte Kocaryuu6889-79-34 19:56:00* Test Item Value Reference Range Interpretation Comments Urine Leukocyte Esterase (test code = 10680-4) NEGATIVE NEGATIV E [facility] Gkkjhyu3240-06-87 19:56:00* Test Item Value Reference Range Interpretation Comments Urine Nitrite (test code = 80609-1) NEGATIVE NEGATIVE [facility] Zdcvxsr5803-69-27 19:56:00* Test Item Value Reference Range Interpretation Comments Urine Protein (test code = 64600-0) NEGATIVE NEGATIVE [facility] Glucose (UA)2019-06-17 19:56:00* Test Item Value Reference Range Interpretation Comments Urine Glucose (UA) (test code = 46206-0) 3+ NEGATIVE [facility] Jkthbxo8207-44-14 19:56:00* Test Item Value Reference Range Interpretation Comments Urine Ketones (test code = 40376-9) NEGATIVE NEGATIVE [facility] Elogtcccffnx4074-21-65 19:56:00* Test Item Value Reference Range Interpretation Comments Urine Urobilinogen (test code = 80752-3) 0.2 0.2-1 [facility] Kcjtfqswl4039-67-33 19:56:00* Test Item Value Reference Range Interpretation Comments Urine Bilirubin (test code = 1977-8) NEGATIVE NEGATIVE [facility] Dmjxs1442-41-30 19:56:00* Test Item Value Reference Range Interpretation Comments Urine Blood (test code = 97384-5) NEGATIVE NEGATIVE [facility] HospitalBASIC METABOLIC FWLWN0776-92-34 15:17:00 * Test Item Value Reference Range [...] code = GLU) 849 mg/dL 74-106 Re sults called to LAURI/UTK9400ij V.LAB.SPR 06/17/19 1456Critical results verified and read back [...] CA) 9.3 mg/dL 8.5-10.1 N HEPATIC FUNCTION GRDVR9618-10-58 15:17:00* Test Item Value Reference Range Interpretation [...] reference range due to change in reagent. GGREHO5116-13-20 15:17:00* Test Item Value Reference Range Interpretation Comments LIPASE (test code = LIP) 234 U/L 73.0-393.0 N HCG SERUM [id number] 15:17:00* Test Item Value Reference Range Interpretation Comments HCG SERUM QUAL (test code = HCGQL) NEGATIVE NEGATIVE This HCGQL test is NOT applicable for MALE patients.Check with nurse about probable order error.If Tumor Marker Test needed, nurse should order test "HCGTU"(Test #550.32027) XVFYMSWL-[id number] 15:17:00* Test Item Value Reference Range Interpretation Comments TROPONIN-I (test code = TROPI) <0.015 ng/mL 0-0.045 N URINALYSIS YGBAELEN5939-85-70 15:14:00* Test Item Value Reference Range Interpretation [...] #/LPF FEW Urine Source? Clean CatchBASIC METABOLIC WSYZP4803-39-51 14:56:00* Test Item Value Reference Range Interpretation Comments SODIUM (test code = NA) 126 mmol/L 136-145 L POTASSIUM (test code = K) 3.8 mmol/L 3.5-5.1 N CHLORIDE (test code = CL) 91.0 mmol/L 98-107 L CARBON DIOXIDE (test code = CO2) 24.0 mmol/L 21-32 N ANION GAP (test code = GAP) 14.8 10-20 N GLUCOSE (test code = GLU) 849 mg/dL 74-106 Re sults called to LAURI/ZDW3419uv V.LAB.SPR 06/17/19 1456Critical results verified and read back [...] CA) 9.3 mg/dL 8.5-10.1 N HEPATIC FUNCTION XOOFL6935-48-54 14:56:00* Test Item Value Reference Range Interpretation [...] reference range due to change in reagent. VGUCGO5633-65-39 14:56:00* Test Item Value Reference Range Interpretation Comments LIPASE (test code = LIP) 234 U/L 73.0-393.0 N HCG SERUM GGXR2858-81-37 14:56:00* Test Item Value Reference Range Interpretation Comments HCG SERUM QUAL (test code = HCGQL) NEGATIVE NTPWDRND-W1243-62-05 14:56:00* Test Item Value Reference Range Interpretation Comments TROPONIN-I (test code = TROPI) <0.015 ng/mL 0-0.045 N CBC W/O QPTS2347-13-05 14:24:00* Test Item Value Reference Range Interpretation [...] MPV) 11.6 fL 6.7-11.0 H CBC W/O AZGN0603-84-60 14:20:00* Test Item Value Reference Range Interpretation [...] code = MPV) fL 6.7-11.0 BASIC METABOLIC PZASA0691-81-34 14:20:00* Test Item Value Reference Range Interpretation [...] code = CA) mg/dL 8.5-10.1 HEPATIC FUNCTION ENNYI8032-37-67 14:20:00* Test Item Value Reference Range Interpretation [...] TOTAL (test code = ALKP) IUnit/L 45-117 WFCFRJ3640-66-98 14:20:00* Test Item Value Reference Range Interpretation Comments LIPASE (test code = LIP) U/L 73.0-393.0 HCG SERUM CCAN7058-11-04 14:20:00* Test Item Value Reference Range Interpretation Comments HCG SERUM QUAL (test code = HCGQL) NEGATIVE XDWZBILH-S1361-30-05 14:20:00* Test Item Value Reference Range Interpretation Comments TROPONIN-I (test code = TROPI) ng/mL 0-0.045 Urine ZQD4125-30-47 23:35:00* Test Item Value Reference Range Interpretation Comments Urine WBC (test code = 5821-4) >50 0-5 H [facility] TTN9155-63-83 23:35:00* Test Item Value Reference Range Interpretation Comments Urine RBC (test code = 09204-6) 0-5 0-5 [facility] Tgqypqhz0712-20-96 23:35:00* Test Item Value Reference Range Interpretation Comments Urine Bacteria (test code = 24821-1) FEW NONE [facility] Epithelial Eapiq9709-55-99 23:35:00 * Test Item Value Reference Range Interpretation Comments Urine Epithelial Cells (test code = 72832-7) FEW NONE [facility] Tagcb9248-19-66 23:24:00* Test Item Value Reference Range Interpretation Comments Urine Color (test code = 5778-6) YELLOW YELLOW [facility] Xhrpncr2842-00-57 23:24:00* Test Item Value Reference Range Interpretation Comments Urine Clarity (test code = 11953-5) CLEAR CLEAR [facility] Specific Limmkwf0314-86-62 23:24:00 * Test Item Value Reference Range Interpretation Comments Urine Specific [place] (test code = 5811-5) 1.005 1.010-1.02 5 L [facility] uX4732-94-28 23:24:00* Test Item Value Reference Range Interpretation Comments Urine pH (test code = 10527-9) 6 5-7 [facility] Leukocyte Eflvmite2703-34-47 23:24:00* Test Item Value Reference Range Interpretation Comments Urine Leukocyte Esterase (test code = 5799-2) NEGATIVE NEGATIVE [facility] Tmoaszo8085-50-58 23:24:00* Test Item Value Reference Range Interpretation Comments Urine Nitrite (test code = 87023-4) NEGATIVE NEGATIVE [facility] Fjvtyeg6776-19-85 23:24:00* Test Item Value Reference Range Interpretation Comments Urine Protein (test code = 5804-0) NEGATIVE NEGATIVE [facility] Glucose (UA)2019-01-23 23:24:00* Test Item Value Reference Range Interpretation Comments Urine Glucose (UA) (test code = 2349-9) 3+ NEGATIVE H [facility] Bnxqmiq4438-36-66 23:24:00* Test Item Value Reference Range Interpretation Comments Urine Ketones (test code = 22629-7) NEGATIVE NEGATIVE [facility] Eakwrefpbsat8618-47-10 23:24:00* Test Item Value Reference Range Interpretation Comments Urine Urobilinogen (test code = 28686-1) 0.2 0.2-1 [facility] Wwiaejxwj4911-85-88 23:24:00* Test Item Value Reference Range Interpretation Comments Urine Bilirubin (test code = 1978-6) NEGATIVE NEGATIVE [facility] Xpium4037-20-51 23:24:00* Test Item Value Reference Range Interpretation Comments Urine Blood (test code = 51326-1) NEGATIVE NEGATIVE [facility] HospitalCT BRAIN UC0110-55-46 23:06:00 [facility] [address] [place] [address] Patient Name: YOLETTE URIBE MR #: [id number] : 1975 Age/Sex: 43/F Req #: [id number] Adm Physician: Ordered by: CHEIKH PIKE MD Report #: [id number] Location: ER Room/Bed: Procedure: [id number] CT/CT DANAE SILVERMAN WO Exam Date: 01/23/19 [...] 11:14 PM Dictated By: JOE Ferrera MD Transcri bed By: JEMAL on 01/23/194 COPY TO: CHEIKH PIKE MD Blood Bzzpitw2803-56-21 14:57:00* Test Item Value Reference Range Interpretation Comments Blood Culture (test code = 40340263) NO GROWTH AFTER 5 DAYS, FINAL REPORT [facility]Blood Vqzzxhm9179-34-05 14:57:00* Test Item Value Reference Range Interpretation Comments Blood Culture (test code = 65881992) NO GROWTH AFTER 5 DAYS, FINAL REPORT [facility] HospitalBlood Fkzpqqt9982-18-38 14:57:00* Test Item Value Reference Range Interpretation Comments Blood Culture (test code = 35988481) NO GROWTH AFTER 5 DAYS, FINAL REPORT [facility] Emfcpgo8475-53-21 08:26:00* Test Item Value Reference Range Interpretation Comments Wound Culture (test code = 6462-6) Organism: STREP AGALACTIAE GROUP B [facility] Etkktwn9863-18-34 08:26:00* Test Item Value Reference Range Interpretation Comments Wound Culture (test code = 6462-6) Organism: STREP AGALACTIAE GROUP B [facility] Dbinzlp5039-66-04 08:26:00* Test Item Value Reference Range Interpretation Comments Wound Culture (test code = 6462-6) Organism: STREP AGALACTIAE GROUP B [facility] HospitalVancomycin Level Clyqzr7752-87-85 09:55:00* Test Item Value Reference Range Interpretation Comments Vancomycin Level Trough (test code = 4092-3) -2.0 5.0-10.0 L [facility] HospitalVancomycin Level Wnpmcc4169-04-22 09:55:00* Test Item Value Reference Range Interpretation Comments Vancomycin Level Trough (test code = 4092-3) < 2.0 5.0-10.0 L [facility] HospitalVancomycin Level Bucxfz0177-84-98 09:55:00* Test Item Value Reference Range Interpretation Comments Vancomycin Level Trough (test code = 4092-3) < 2.0 5.0-10.0 L [facility] HospitalVancomycin Level Bmzlvr7922-19-52 09:55:00* Test Item Value Reference Range Interpretation Comments Vancomycin Level Trough (test code = 4092-3) < 2.0 5.0-10.0 L [facility] HospitalBlood Avulsye7118-22-15 09:17:00* Test Item Value Reference Range Interpretation Comments Blood Culture (test code = 42939335) NO GROWTH AFTER 48 HOURS [facility] HospitalBedside Eteppqf7747-58-18 08:15:00* Test Item Value Reference Range Interpretation Comments Bedside Glucose (test code = 01688-1) 347 70-120 H Meter ID: [id number] [facility] Glucose 2018-03-19 08:15:00* Test Item Value Reference Range Interpretation Comments Bedside Glucose (test code = 49385-3) 347 70-120 H Meter ID: [id number] Glucose 2018-03-19 08:15:00* Test Item Value Reference Range Interpretation Comments Bedside Glucose (test code = 88869-8) 347 70-120 H Meter ID: [id number] [facility]ty [facility] Glucose 2018-03-19 08:15:00* Test Item Value Reference Range Interpretation Comments Bedside Glucose (test code = 01940-7) 347 70-120 H Meter ID: [id number] Children's Hospitalodium Level 2018-03-18 09:38:00* Test Item Value Reference Range Interpretation Comments Sodium Level (test code = 2951-2) 137 136-145 [facility] HospitalPotassium Uoomb1537-10-93 09:38:00* Test Item Value Reference Range Interpretation Comments Potassium Level (test code = 2823-3) 4.4 3.5-5.1 [facility] HospitalChloride Nssmv8445-25-29 09:38:00* Test Item Value Reference Range Interpretation Comments Chloride Level (test code = 2075-0) 104 98-107 [facility] HospitalCarbon Dioxide Alowj0501-94-71 09:38:00* Test Item Value Reference Range Interpretation Comments Carbon Dioxide Level (test code = 2028-9) 25 22-29 [facility] HospitalAnion Lch8012-40-24 09:38:00* Test Item Value Reference Range Interpretation Comments Anion Gap (test code = 12973-5) 12.4 8-16 [facility] HospitalBlood Urea Hwymzwjk2008-91-08 09:38:00* Test Item Value Reference Range Interpretation Comments Blood Urea Nitrogen (test code = 3094-0) 10 7-26 [facility] HospitalCreatinine2018-06-06 09:38:00* Test Item Value Reference Range Interpretation Comments Creatinine (test code = 2160-0) 0.77 0.57-1.11 [facility] HospitalBUN/Creatinine Aisbk8142-90-88 09:38:00* Test Item Value Reference Range Interpretation Comments BUN/Creatinine Ratio (test code = 3097-3) 13 6-25 [facility] HospitalEstimat Glomerular Filtration Rate 2018-03-18 09:38:00* Test Item Value Reference Range Interpretation Comments Estimat Glomerular Filtration Rate (test code = 92253-2) 60- >60 Ranges were taken from the National Kidney Disease Education Program and the [facility] Foundation literature.Reference ranges:60 or greater: Navzil64-07 ( for 3 consecutive months): Chronic kidney disease 15 or less: Kidney failureHouston Methodist Willowbrook HospitalGlucose Svyoq0965-13-53 09:38:00* Test Item Value Reference Range Interpretation Comments Glucose Level (test code = LHV1992) 402 74-118 HH Results called to [Shell Syed RN] at 0937 on 03/18/18 by Wendie Madrigal. RB OK. [facility] HospitalCalcium Uefwg3445-32-22 09:38:00* Test Item Value Reference Range Interpretation Comments Calcium Level (test code = 93452-2) 9.5 8.4-10.2 [facility] Hospitalodium Lvqqm3561-96-28 09:38:00* Test Item Value Reference Range Interpretation Comments Sodium Level (test code = 2951-2) 137 136-145 [facility] HospitalPotassium Moarj4910-15-26 09:38:00* Test Item Value Reference Range Interpretation Comments Potassium Level (test code = 2823-3) 4.4 3.5-5.1 [facility] HospitalChloride Pkxgs7914-67-74 09:38:00* Test Item Value Reference Range Interpretation Comments Chloride Level (test code = 2075-0) 104 98-107 [facility] HospitalCarbon Dioxide Rzrvj5110-85-72 09:38:00* Test Item Value Reference Range Interpretation Comments Carbon Dioxide Level (test code = 2028-9) 25 22-29 [facility] HospitalAnion Jfb2628-27-96 09:38:00* Test Item Value Reference Range Interpretation Comments Anion Gap (test code = 47232-4) 12.4 8-16 [facility] HospitalBlood Urea Tzrglslb5725-09-85 09:38:00* Test Item Value Reference Range Interpretation Comments Blood Urea Nitrogen (test code = 3094-0) 10 7-26 [facility] HospitalCreatinine2018-06-06 09:38:00* Test Item Value Reference Range Interpretation Comments Creatinine (test code = 2160-0) 0.77 0.57-1.11 [facility] HospitalBUN/Creatinine Zkmkn0356-17-72 09:38:00* Test Item Value Reference Range Interpretation Comments BUN/Creatinine Ratio (test code = 3097-3) 13 04-06 [facility] HospitalEstimat Glomerular Filtration Rate 2018-03-18 09:38:00* Test Item Value Reference Range Interpretation Comments Estimat Glomerular Filtration Rate (test code = 079851425) > 60 >60 Ranges were taken from the National Kidney Disease Education Program and the [facility] literature.Reference ranges:60 or greater: Lwsxux21-92 ( for 3 consecutive months): Chronic kidney disease 15 or less: Kidney failureHouston Methodist Willowbrook HospitalGlucose Arjdo2150-48-17 09:38:00* Test Item Value Reference Range Interpretation Comments Glucose Level (test code = XIG6878) 402 74-118 HH Results called to [Shell Syed RN] at 0937 on 03/18/18 by Wendie Madrigal. RB OK. [facility] HospitalCalcium Esvql6965-78-98 09:38:00* Test Item Value Reference Range Interpretation Comments Calcium Level (test code = 94111-5) 9.5 8.4-10.2 [facility] Hospitalodium Ihblb5064-95-97 09:38:00* Test Item Value Reference Range Interpretation Comments Sodium Level (test code = 2951-2) 137 136-145 [facility] HospitalPotassium Iwtbg7612-49-48 09:38:00* Test Item Value Reference Range Interpretation Comments Potassium Level (test code = 2823-3) 4.4 3.5-5.1 [facility] HospitalChloride Qxnto8812-10-58 09:38:00* Test Item Value Reference Range Interpretation Comments Chloride Level (test code = 2075-0) 104 98-107 [facility] HospitalCarbon Dioxide Ditwb7018-15-55 09:38:00* Test Item Value Reference Range Interpretation Comments Carbon Dioxide Level (test code = 2028-9) 25 22-29 [facility] HospitalAnion Hfz3672-04-87 09:38:00* Test Item Value Reference Range Interpretation Comments Anion Gap (test code = 11511-1) 12.4 8-16 [facility] HospitalBlood Urea Cvjoxcxv6856-03-31 09:38:00* Test Item Value Reference Range Interpretation Comments Blood Urea Nitrogen (test code = 3094-0) 10 7-26 [facility] HospitalCreatinine2018-06-06 09:38:00* Test Item Value Reference Range Interpretation Comments Creatinine (test code = 2160-0) 0.77 0.57-1.11 [facility] HospitalBUN/Creatinine Ewrzk9715-48-19 09:38:00* Test Item Value Reference Range Interpretation Comments BUN/Creatinine Ratio (test code = 3097-3) 13 6-25 [facility] HospitalEstimat Glomerular Filtration Rate 2018-03-18 09:38:00* Test Item Value Reference Range Interpretation Comments Estimat Glomerular Filtration Rate (test code = 880774251) > 60 >60 Ranges were taken from the National Kidney Disease Education Program and the [facility] literature.Reference ranges:60 or greater: Jbfkjx31-15 ( for 3 consecutive months): Chronic kidney disease 15 or less: Kidney failureHouston Methodist Willowbrook HospitalGlucose Dgsmd6366-08-66 09:38:00* Test Item Value Reference Range Interpretation Comments Glucose Level (test code = NMC3035) 402 74-118 HH Results called to [Shell Syed RN] at 0937 on 03/18/18 by Wendie Madrigal. RB OK. [facility] HospitalCalcium Djpke1341-63-37 09:38:00* Test Item Value Reference Range Interpretation Comments Calcium Level (test code = 86232-2) 9.5 8.4-10.2 [facility] Hospitalodium Fwrgc9095-15-73 09:38:00* Test Item Value Reference Range Interpretation Comments Sodium Level (test code = 2951-2) 137 136-145 [facility] HospitalPotassium Qooep7480-92-45 09:38:00* Test Item Value Reference Range Interpretation Comments Potassium Level (test code = 2823-3) 4.4 3.5-5.1 [facility] HospitalChloride Zuoky3755-19-00 09:38:00* Test Item Value Reference Range Interpretation Comments Chloride Level (test code = 2075-0) 104 98-107 [facility] HospitalCarbon Dioxide Anips0452-87-76 09:38:00* Test Item Value Reference Range Interpretation Comments Carbon Dioxide Level (test code = 2028-9) 25 22-29 [facility] HospitalAnion Uqv4370-98-00 09:38:00* Test Item Value Reference Range Interpretation Comments Anion Gap (test code = 32942-5) 12.4 8-16 [facility] HospitalBlood Urea Eyflzhpk5768-72-34 09:38:00* Test Item Value Reference Range Interpretation Comments Blood Urea Nitrogen (test code = 3094-0) 10 7-26 [facility] HospitalCreatinine2018-06-06 09:38:00* Test Item Value Reference Range Interpretation Comments Creatinine (test code = 2160-0) 0.77 0.57-1.11 [facility] HospitalBUN/Creatinine Rjpxa5981-06-43 09:38:00* Test Item Value Reference Range Interpretation Comments BUN/Creatinine Ratio (test code = 3097-3) 13 6-25 [facility] HospitalEstimat Glomerular Filtration Rate 2018-03-18 09:38:00* Test Item Value Reference Range Interpretation Comments Estimat Glomerular Filtration Rate (test code = 762998600) > 60 >60 Ranges were taken from the National Kidney Disease Education Program and the [facility] literature.Reference ranges:60 or greater: Eyqisd29-35 ( for 3 consecutive months): Chronic kidney disease 15 or less: Kidney failureHouston Methodist Willowbrook HospitalGlucose Jjiuk4304-79-75 09:38:00* Test Item Value Reference Range Interpretation Comments Glucose Level (test code = LTH2442) 402 74-118 HH Results called to [Shell Syed RN] at 0937 on 03/18/18 by Wendie Madrigal. RB OK. [facility] HospitalCalcium Oueiw7960-31-71 09:38:00* Test Item Value Reference Range Interpretation Comments Calcium Level (test code = 29432-7) 9.5 8.4-10.2 [facility] HospitalWhite Blood Tqhao4325-44-79 09:34:00* Test Item Value Reference Range Interpretation Comments White Blood Count (test code = 6690-2) 6.36 4.8-10.8 [facility] HospitalRed Blood Wgvmf9768-69-07 09:34:00* Test Item Value Reference Range Interpretation Comments Red Blood Count (test code = 789-8) 3.86 3.6-5.1 [facility] HospitalHemoglobin2018-06-06 09:34:00* Test Item Value Reference Range Interpretation Comments Hemoglobin (test code = 16978-6) 11.5 12.0-16.0 L [facility] HospitalHematocrit2018-06-06 09:34:00* Test Item Value Reference Range Interpretation Comments Hematocrit (test code = 4544-3) 33.4 34.2-44.1 L [facility] HospitalMean Corpuscular Sfcbxg2409-52-54 09:34:00* Test Item Value Reference Range Interpretation Comments Mean Corpuscular Volume (test code = 787-2) 86.5 81-99 [facility] HospitalMean Corpuscular Jrucnfnwuv0643-37-28 09:34:00* Test Item Value Reference Range Interpretation Comments Mean Corpuscular Hemoglobin (test code = 785-6) 29.8 28-32 [facility] HospitalMean Corpuscular Hemoglobin Concent 2018-03-18 09:34:00* Test Item Value Reference Range Interpretation Comments Mean Corpuscular Hemoglobin Concent (test code = 786-4) 34.4 31-35 [facility] HospitalRed Cell Distribution Otink1553-72-49 09:34:00* Test Item Value Reference Range Interpretation Comments Red Cell Distribution Width (test code = 30169-8) 12.4 11.7 -14.4 [facility] HospitalPlatelet Upnoc3741-29-10 09:34:00* Test Item Value Reference Range Interpretation Comments Platelet Count (test code = 777-3) 205 140-360 [facility] HospitalNeutrophils (%) (Auto)2018-03-18 09:34:00 * Test Item Value Reference Range Interpretation Comments Neutrophils (%) (Auto) (test code = 72371-5) 62.4 38.7-80.0 [facility]Lymphocytes (%) (Auto)2018-03-18 09:34:00 * Test Item Value Reference Range Interpretation Comments Lymphocytes (%) (Auto) (test code = 736-9) 30.3 18.0-39.1 [facility] HospitalMonocytes (%) (Auto)2018-03-18 09:34:00* Test Item Value Reference Range Interpretation Comments Monocytes (%) (Auto) (test code = 5905-5) 6.6 4.4-11.3 [facility] HospitalEosinophils (%) (Auto)2018-03-18 09:34:00 * Test Item Value Reference Range Interpretation Comments Eosinophils (%) (Auto) (test code = 713-8) 0.2 0.0-6.0 [facility] HospitalBasophils (%) (Auto)2018-03-18 09:34:00* Test Item Value Reference Range Interpretation Comments Basophils (%) (Auto) (test code = 706-2) 0.3 0.0-1.0 [facility] HospitalIM GRANULOCYTES %2018-03-18 09:34:00* Test Item Value Reference Range Interpretation Comments IM GRANULOCYTES % (test code = IM GRANULOCYTES %) 0.2 0.0- 1.0 [facility] HospitalNeutrophils # (Auto)2018-03-18 09:34:00* Test Item Value Reference Range Interpretation Comments Neutrophils # (Auto) (test code = 751-8) 4.0 2.1-6.9 [facility] HospitalLymphocytes # (Auto)2018-03-18 09:34:00* Test Item Value Reference Range Interpretation Comments Lymphocytes # (Auto) (test code = 61886-6) 1.9 1.0-3.2 [facility] HospitalMonocytes # (Auto)2018-03-18 09:34:00* Test Item Value Reference Range Interpretation Comments Monocytes # (Auto) (test code = 742-7) 0.4 0.2-0.8 [facility] HospitalEosinophils # (Auto)2018-03-18 09:34:00* Test Item Value Reference Range Interpretation Comments Eosinophils # (Auto) (test code = 711-2) 0.0 0.0-0.4 [facility] HospitalBasophils # (Auto)2018-03-18 09:34:00* Test Item Value Reference Range Interpretation Comments Basophils # (Auto) (test code = 704-7) 0.0 0.0-0.1 [facility] HospitalAbsolute Immature Granulocyte (auto 2018-03-18 09:34:00* Test Item Value Reference Range Interpretation Comments Absolute Immature Granulocyte (auto (chiquita t code = Absolute Immature Granulocyte (auto) 0.01 0-0.1 [facility] HospitalWhite Blood Ihvhp1412-55-74 09:34:00* Test Item Value Reference Range Interpretation Comments White Blood Count (test code = 6690-2) 6.36 4.8-10.8 [facility] HospitalRed Blood Urmil0650-27-89 09:34:00* Test Item Value Reference Range Interpretation Comments Red Blood Count (test code = 789-8) 3.86 3.6-5.1 [facility] HospitalHemoglobin2018-06-06 09:34:00* Test Item Value Reference Range Interpretation Comments Hemoglobin (test code = 61457-1) 11.5 12.0-16.0 L [facility] HospitalHematocrit2018-06-06 09:34:00* Test Item Value Reference Range Interpretation Comments Hematocrit (test code = 4544-3) 33.4 34.2-44.1 L [facility] HospitalMean Corpuscular Cukwgx7023-69-01 09:34:00* Test Item Value Reference Range Interpretation Comments Mean Corpuscular Volume (test code = 787-2) 86.5 81-99 [facility] HospitalMean Corpuscular Mpypfdcxdv9460-18-96 09:34:00* Test Item Value Reference Range Interpretation Comments Mean Corpuscular Hemoglobin (test code = 785-6) 29.8 28-32 [facility] HospitalMean Corpuscular Hemoglobin Concent 2018-03-18 09:34:00* Test Item Value Reference Range Interpretation Comments Mean Corpuscular Hemoglobin Concent (test code = 786-4) 34.4 31-35 [facility] HospitalRed Cell Distribution Jtili7476-38-26 09:34:00* Test Item Value Reference Range Interpretation Comments Red Cell Distribution Width (test code = 07561-2) 12.4 11.7 -14.4 [facility] HospitalPlatelet Rewfu1750-43-18 09:34:00* Test Item Value Reference Range Interpretation Comments Platelet Count (test code = 777-3) 205 140-360 [facility] HospitalNeutrophils (%) (Auto)2018-03-18 09:34:00 * Test Item Value Reference Range Interpretation Comments Neutrophils (%) (Auto) (test code = 55574-5) 62.4 38.7-80.0 [facility] HospitalLymphocytes (%) (Auto)2018-03-18 09:34:00 * Test Item Value Reference Range Interpretation Comments Lymphocytes (%) (Auto) (test code = 736-9) 30.3 18.0-39.1 [facility] HospitalMonocytes (%) (Auto)2018-03-18 09:34:00* Test Item Value Reference Range Interpretation Comments Monocytes (%) (Auto) (test code = 5905-5) 6.6 4.4-11.3 [facility] HospitalEosinophils (%) (Auto)2018-03-18 09:34:00 * Test Item Value Reference Range Interpretation Comments Eosinophils (%) (Auto) (test code = 713-8) 0.2 0.0-6.0 [facility] HospitalBasophils (%) (Auto)2018-03-18 09:34:00* Test Item Value Reference Range Interpretation Comments Basophils (%) (Auto) (test code = 706-2) 0.3 0.0-1.0 [facility] HospitalIM GRANULOCYTES %2018-03-18 09:34:00* Test Item Value Reference Range Interpretation Comments IM GRANULOCYTES % (test code = IM GRANULOCYTES %) 0.2 0.0- 1.0 [facility] HospitalNeutrophils # (Auto)2018-03-18 09:34:00* Test Item Value Reference Range Interpretation Comments Neutrophils # (Auto) (test code = 751-8) 4.0 2.1-6.9 [facility] HospitalLymphocytes # (Auto)2018-03-18 09:34:00* Test Item Value Reference Range Interpretation Comments Lymphocytes # (Auto) (test code = 25100-8) 1.9 1.0-3.2 [facility] HospitalMonocytes # (Auto)2018-03-18 09:34:00* Test Item Value Reference Range Interpretation Comments Monocytes # (Auto) (test code = 742-7) 0.4 0.2-0.8 [facility] HospitalEosinophils # (Auto)2018-03-18 09:34:00* Test Item Value Reference Range Interpretation Comments Eosinophils # (Auto) (test code = 711-2) 0.0 0.0-0.4 [facility] HospitalBasophils # (Auto)2018-03-18 09:34:00* Test Item Value Reference Range Interpretation Comments Basophils # (Auto) (test code = 704-7) 0.0 0.0-0.1 [facility] HospitalAbsolute Immature Granulocyte (auto 2018-03-18 09:34:00* Test Item Value Reference Range Interpretation Comments Absolute Immature Granulocyte (auto (chiquita t code = Absolute Immature Granulocyte (auto) 0.01 0-0.1 [facility] HospitalWhite Blood Uvkdv6717-96-03 09:34:00* Test Item Value Reference Range Interpretation Comments White Blood Count (test code = 6690-2) 6.36 4.8-10.8 [facility] HospitalRed Blood Kdybr4945-27-12 09:34:00* Test Item Value Reference Range Interpretation Comments Red Blood Count (test code = 789-8) 3.86 3.6-5.1 [facility] HospitalHemoglobin2018-06-06 09:34:00* Test Item Value Reference Range Interpretation Comments Hemoglobin (test code = 03682-2) 11.5 12.0-16.0 L [facility] HospitalHematocrit2018-06-06 09:34:00* Test Item Value Reference Range Interpretation Comments Hematocrit (test code = 4544-3) 33.4 34.2-44.1 L [facility] HospitalMean Corpuscular Lugxbh0331-82-54 09:34:00* Test Item Value Reference Range Interpretation Comments Mean Corpuscular Volume (test code = 787-2) 86.5 81-99 [facility] HospitalMean Corpuscular Hudngwthgn6076-36-22 09:34:00* Test Item Value Reference Range Interpretation Comments Mean Corpuscular Hemoglobin (test code = 785-6) 29.8 28-32 [facility] HospitalMean Corpuscular Hemoglobin Concent 2018-03-18 09:34:00* Test Item Value Reference Range Interpretation Comments Mean Corpuscular Hemoglobin Concent (test code = 786-4) 34.4 31-35 [facility] HospitalRed Cell Distribution Pimkc9508-76-22 09:34:00* Test Item Value Reference Range Interpretation Comments Red Cell Distribution Width (test code = 33663-5) 12.4 11.7 -14.4 [facility] HospitalPlatelet Plxrx7521-35-39 09:34:00* Test Item Value Reference Range Interpretation Comments Platelet Count (test code = 777-3) 205 140-360 [facility] HospitalNeutrophils (%) (Auto)2018-03-18 09:34:00 * Test Item Value Reference Range Interpretation Comments Neutrophils (%) (Auto) (test code = 27800-9) 62.4 38.7-80.0 [facility] HospitalLymphocytes (%) (Auto)2018-03-18 09:34:00 * Test Item Value Reference Range Interpretation Comments Lymphocytes (%) (Auto) (test code = 736-9) 30.3 18.0-39.1 [facility] HospitalMonocytes (%) (Auto)2018-03-18 09:34:00* Test Item Value Reference Range Interpretation Comments Monocytes (%) (Auto) (test code = 5905-5) 6.6 4.4-11.3 [facility] HospitalEosinophils (%) (Auto)2018-03-18 09:34:00 * Test Item Value Reference Range Interpretation Comments Eosinophils (%) (Auto) (test code = 713-8) 0.2 0.0-6.0 [facility] HospitalBasophils (%) (Auto)2018-03-18 09:34:00* Test Item Value Reference Range Interpretation Comments Basophils (%) (Auto) (test code = 706-2) 0.3 0.0-1.0 [facility] HospitalIM GRANULOCYTES %2018-03-18 09:34:00* Test Item Value Reference Range Interpretation Comments IM GRANULOCYTES % (test code = IM GRANULOCYTES %) 0.2 0.0- 1.0 [facility] HospitalNeutrophils # (Auto)2018-03-18 09:34:00* Test Item Value Reference Range Interpretation Comments Neutrophils # (Auto) (test code = 751-8) 4.0 2.1-6.9 [facility] HospitalLymphocytes # (Auto)2018-03-18 09:34:00* Test Item Value Reference Range Interpretation Comments Lymphocytes # (Auto) (test code = 54013-0) 1.9 1.0-3.2 [facility] HospitalMonocytes # (Auto)2018-03-18 09:34:00* Test Item Value Reference Range Interpretation Comments Monocytes # (Auto) (test code = 742-7) 0.4 0.2-0.8 [facility] HospitalEosinophils # (Auto)2018-03-18 09:34:00* Test Item Value Reference Range Interpretation Comments Eosinophils # (Auto) (test code = 711-2) 0.0 0.0-0.4 [facility] HospitalBasophils # (Auto)2018-03-18 09:34:00* Test Item Value Reference Range Interpretation Comments Basophils # (Auto) (test code = 704-7) 0.0 0.0-0.1 [facility] HospitalAbsolute Immature Granulocyte (auto 2018-03-18 09:34:00* Test Item Value Reference Range Interpretation Comments Absolute Immature Granulocyte (auto (chiquita t code = Absolute Immature Granulocyte (auto) 0.01 0-0.1 [facility] HospitalWhite Blood Pvpbz5611-78-02 09:34:00* Test Item Value Reference Range Interpretation Comments White Blood Count (test code = 6690-2) 6.36 4.8-10.8 [facility] HospitalRed Blood Gfafx6073-96-58 09:34:00* Test Item Value Reference Range Interpretation Comments Red Blood Count (test code = 789-8) 3.86 3.6-5.1 [facility] HospitalHemoglobin2018-06-06 09:34:00* Test Item Value Reference Range Interpretation Comments Hemoglobin (test code = 09365-0) 11.5 12.0-16.0 L [facility] HospitalHematocrit2018-06-06 09:34:00* Test Item Value Reference Range Interpretation Comments Hematocrit (test code = 4544-3) 33.4 34.2-44.1 L [facility] HospitalMean Corpuscular Eqpyvr6526-49-16 09:34:00* Test Item Value Reference Range Interpretation Comments Mean Corpuscular Volume (test code = 787-2) 86.5 81-99 [facility] HospitalMean Corpuscular Otylgpyvob6980-84-29 09:34:00* Test Item Value Reference Range Interpretation Comments Mean Corpuscular Hemoglobin (test code = 785-6) 29.8 28-32 [facility] HospitalMean Corpuscular Hemoglobin Concent 2018-03-18 09:34:00* Test Item Value Reference Range Interpretation Comments Mean Corpuscular Hemoglobin Concent (test code = 786-4) 34.4 31-35 [facility] HospitalRed Cell Distribution Qzmrt6296-30-73 09:34:00* Test Item Value Reference Range Interpretation Comments Red Cell Distribution Width (test code = 00722-1) 12.4 11.7 -14.4 [facility] HospitalPlatelet Gzjgf4579-87-54 09:34:00* Test Item Value Reference Range Interpretation Comments Platelet Count (test code = 777-3) 205 140-360 [facility] HospitalNeutrophils (%) (Auto)2018-03-18 09:34:00 * Test Item Value Reference Range Interpretation Comments Neutrophils (%) (Auto) (test code = 97132-9) 62.4 38.7-80.0 [facility] HospitalLymphocytes (%) (Auto)2018-03-18 09:34:00 * Test Item Value Reference Range Interpretation Comments Lymphocytes (%) (Auto) (test code = 736-9) 30.3 18.0-39.1 [facility] HospitalMonocytes (%) (Auto)2018-03-18 09:34:00* Test Item Value Reference Range Interpretation Comments Monocytes (%) (Auto) (test code = 5905-5) 6.6 4.4-11.3 [facility] HospitalEosinophils (%) (Auto)2018-03-18 09:34:00 * Test Item Value Reference Range Interpretation Comments Eosinophils (%) (Auto) (test code = 713-8) 0.2 0.0-6.0 [facility] HospitalBasophils (%) (Auto)2018-03-18 09:34:00* Test Item Value Reference Range Interpretation Comments Basophils (%) (Auto) (test code = 706-2) 0.3 0.0-1.0 [facility] HospitalIM GRANULOCYTES %2018-03-18 09:34:00* Test Item Value Reference Range Interpretation Comments IM GRANULOCYTES % (test code = IM GRANULOCYTES %) 0.2 0.0- 1.0 [facility] HospitalNeutrophils # (Auto)2018-03-18 09:34:00* Test Item Value Reference Range Interpretation Comments Neutrophils # (Auto) (test code = 751-8) 4.0 2.1-6.9 [facility] HospitalLymphocytes # (Auto)2018-03-18 09:34:00* Test Item Value Reference Range Interpretation Comments Lymphocytes # (Auto) (test code = 17753-7) 1.9 1.0-3.2 [facility] HospitalMonocytes # (Auto)2018-03-18 09:34:00* Test Item Value Reference Range Interpretation Comments Monocytes # (Auto) (test code = 742-7) 0.4 0.2-0.8 [facility] HospitalEosinophils # (Auto)2018-03-18 09:34:00* Test Item Value Reference Range Interpretation Comments Eosinophils # (Auto) (test code = 711-2) 0.0 0.0-0.4 [facility] HospitalBasophils # (Auto)2018-03-18 09:34:00* Test Item Value Reference Range Interpretation Comments Basophils # (Auto) (test code = 704-7) 0.0 0.0-0.1 [facility] HospitalAbsolute Immature Granulocyte (auto 2018-03-18 09:34:00* Test Item Value Reference Range Interpretation Comments Absolute Immature Granulocyte (auto (chiquita t code = Absolute Immature Granulocyte (auto) 0.01 0-0.1 [facility] HospitalErythrocyte Sedimentation Ming1127-34-44 10:22:00* Test Item Value Reference Range Interpretation Comments Erythrocyte Sedimentation Rate (test code = 4537-7) 20 0- 20 [facility] HospitalErythrocyte Sedimentation Ursh4316-88-35 10:22:00* Test Item Value Reference Range Interpretation Comments Erythrocyte Sedimentation Rate (test code = 4537-7) 20 0- 20 [facility] HospitalErythrocyte Sedimentation Tcvh3930-80-53 10:22:00* Test Item Value Reference Range Interpretation Comments Erythrocyte Sedimentation Rate (test code = 4537-7) 20 0- 20 [facility] HospitalErythrocyte Sedimentation Zoph1485-42-79 10:22:00* Test Item Value Reference Range Interpretation Comments Erythrocyte Sedimentation Rate (test code = 4537-7) 20 0- 20 [facility] HospitalTriglycerides Ukvui5047-37-88 09:40:00* Test Item Value Reference Range Interpretation Comments Triglycerides Level (test code = 2571-8) 160 0-149 H [facility] HospitalCholesterol Hrugk2900-05-36 09:40:00* Test Item Value Reference Range Interpretation Comments Cholesterol Level (test code = 2093-3) 241 0-199 H Less than 200 mg/dL Low Xjmx533 - 239 mg/dL Borderline Aapg937 m g/dl and greater High Risk [facility] HospitalLDL Rfqentpeose3532-96-73 09:40:00* Test Item Value Reference Range Interpretation Comments LDL Cholesterol (test code = 2089-1) 165 60-130 H [facility] HospitalHDL Nvlepvnqyta9302-16-24 09:40:00* Test Item Value Reference Range Interpretation Comments HDL Cholesterol (test code = 2085-9) 44 40-60 [facility] HospitalCholesterol/HDL Cnozu1463-55-15 09:40:00 * Test Item Value Reference Range Interpretation Comments Cholesterol/HDL Ratio (test code = 9830-1) 5.5 3.0-3.6 H [facility] HospitalTriglycerides Eslwf1509-00-81 09:40:00* Test Item Value Reference Range Interpretation Comments Triglycerides Level (test code = 2571-8) 160 0-149 H [facility] HospitalCholesterol Umzsh6731-62-68 09:40:00* Test Item Value Reference Range Interpretation Comments Cholesterol Level (test code = 2093-3) 241 0-199 H Less than 200 mg/dL Low Mutf334 - 239 mg/dL Borderline Jwwx720 m g/dl and greater High Risk [facility] HospitalLDL Mgwyqsvszsw8178-90-98 09:40:00* Test Item Value Reference Range Interpretation Comments LDL Cholesterol (test code = 2089-1) 165 60-130 H [facility] Rpsvhextarq9379-26-12 09:40:00* Test Item Value Reference Range Interpretation Comments HDL Cholesterol (test code = 2085-9) 44 40-60 [facility] HospitalCholesterol/HDL Jiriw4073-57-36 09:40:00 * Test Item Value Reference Range Interpretation Comments Cholesterol/HDL Ratio (test code = 9830-1) 5.5 3.0-3.6 H [facility] HospitalTriglycerides Lavqc3360-99-40 09:40:00* Test Item Value Reference Range Interpretation Comments Triglycerides Level (test code = 2571-8) 160 0-149 H [facility] HospitalCholesterol Gayke3208-29-03 09:40:00* Test Item Value Reference Range Interpretation Comments Cholesterol Level (test code = 2093-3) 241 0-199 H Less than 200 mg/dL Low Wpem646 - 239 mg/dL Borderline Qzjy585 m g/dl and greater High Risk [facility] HospitalLDL Vrikqbpcsoe0515-55-81 09:40:00* Test Item Value Reference Range Interpretation Comments LDL Cholesterol (test code = 2089-1) 165 60-130 H [facility] Qbakbvlnbfd3762-22-13 09:40:00* Test Item Value Reference Range Interpretation Comments HDL Cholesterol (test code = 2085-9) 44 40-60 [facility] HospitalCholesterol/HDL Ujucf9921-84-04 09:40:00 * Test Item Value Reference Range Interpretation Comments Cholesterol/HDL Ratio (test code = 9830-1) 5.5 3.0-3.6 H [facility] HospitalTriglycerides Yirae9294-93-14 09:40:00* Test Item Value Reference Range Interpretation Comments Triglycerides Level (test code = 2571-8) 160 0-149 H [facility] HospitalCholesterol Wifvn1510-38-12 09:40:00* Test Item Value Reference Range Interpretation Comments Cholesterol Level (test code = 2093-3) 241 0-199 H Less than 200 mg/dL Low Axpo868 - 239 mg/dL Borderline Obvd135 m g/dl and greater High Risk [facility] HospitalLDL Vgxjitqcoaf9447-05-30 09:40:00* Test Item Value Reference Range Interpretation Comments LDL Cholesterol (test code = 2089-1) 165 60-130 H [facility] HospitalHDL Yscuykunbpd1001-49-08 09:40:00* Test Item Value Reference Range Interpretation Comments HDL Cholesterol (test code = 2085-9) 44 40-60 [facility] HospitalCholesterol/HDL Ilkwt9500-31-79 09:40:00 * Test Item Value Reference Range Interpretation Comments Cholesterol/HDL Ratio (test code = 9830-1) 5.5 3.0-3.6 H [facility] HospitalHemoglobin A1c Aagacjm8310-75-80 09:33:00 * Test Item Value Reference Range Interpretation Comments Hemoglobin A1c Percent (test code = Hemoglobin A1c Percent) 14.6 4.0-7.0 H [facility] HospitalHemoglobin A1c Adunupo7783-76-68 09:33:00 * Test Item Value Reference Range Interpretation Comments Hemoglobin A1c Percent (test code = Hemoglobin A1c Percent) 14.6 4.0-7.0 H [facility] HospitalHemoglobin A1c Iqkikvs0993-26-30 09:33:00 * Test Item Value Reference Range Interpretation Comments Hemoglobin A1c Percent (test code = Hemoglobin A1c Percent) 14.6 4.0-7.0 H [facility] HospitalHemoglobin A1c Nbrkqcr5181-18-65 09:33:00 * Test Item Value Reference Range Interpretation Comments Hemoglobin A1c Percent (test code = Hemoglobin A1c Percent) 14.6 4.0-7.0 H [facility] HospitalTotal Ptjqielki8411-25-38 22:35:00* Test Item Value Reference Range Interpretation Comments Total Bilirubin (test code = 1975-2) 0.2 0.2-1.2 [facility] HospitalAspartate Amino Transf (AST/SGOT) 2018-03-16 22:35:00* Test Item Value Reference Range Interpretation Comments Aspartate Amino Transf (AST/SGOT) (test code = Aspartate Amino Transf (AST/SGOT)) 10 [facility] HospitalAlanine Aminotransferase (ALT/SGPT) 2018-03-16 22:35:00* Test Item Value Reference Range Interpretation Comments Alanine Aminotransferase (ALT/SGPT) (test code = 1742-6) 15 0-55 [facility] HospitalTotal Rviweyc4636-54-79 22:35:00* Test Item Value Reference Range Interpretation Comments Total Protein (test code = 2885-2) 7.3 6.5-8.1 [facility] HospitalAlbumin2018-06-04 22:35:00* Test Item Value Reference Range Interpretation Comments Albumin (test code = 1751-7) 3.8 3.5-5.0 [facility] HospitalGlobulin2018-06-04 22:35:00* Test Item Value Reference Range Interpretation Comments Globulin (test code = 94548-6) 3.5 2.3-3.5 [facility] HospitalAlbumin/Globulin Ymhrj8224-95-25 22:35:00 * Test Item Value Reference Range Interpretation Comments Albumin/Globulin Ratio (test code = 1759-0) 1.1 0.8-2.0 [facility] HospitalAlkaline Mzwprjpibui9849-74-00 22:35:00* Test Item Value Reference Range Interpretation Comments Alkaline Phosphatase (test code = 6768-6) 150 40-150 [facility] HospitalTotal Hbykkwcyy6462-13-67 22:35:00* Test Item Value Reference Range Interpretation Comments Total Bilirubin (test code = 1975-2) 0.2 0.2-1.2 [facility] HospitalAspartate Amino Transf (AST/SGOT) 2018-03-16 22:35:00* Test Item Value Reference Range Interpretation Comments Aspartate Amino Transf (AST/SGOT) (test code = Aspartate Amino Transf (AST/SGOT)) 10 -34 [facility] HospitalAlanine Aminotransferase (ALT/SGPT) 2018-03-16 22:35:00* Test Item Value Reference Range Interpretation Comments Alanine Aminotransferase (ALT/SGPT) (test code = 1742-6) 15 0-55 [facility] HospitalTotal Igythvv7638-11-67 22:35:00* Test Item Value Reference Range Interpretation Comments Total Protein (test code = 2885-2) 7.3 6.5-8.1 [facility] HospitalAlbumin2018-06-04 22:35:00* Test Item Value Reference Range Interpretation Comments Albumin (test code = 1751-7) 3.8 3.5-5.0 [facility] HospitalGlobulin2018-06-04 22:35:00* Test Item Value Reference Range Interpretation Comments Globulin (test code = 32661-6) 3.5 2.3-3.5 [facility] HospitalAlbumin/Globulin Odcns7580-81-01 22:35:00 * Test Item Value Reference Range Interpretation Comments Albumin/Globulin Ratio (test code = 1759-0) 1.1 0.8-2.0 [facility] HospitalAlkaline Nopbeioswwf0605-27-48 22:35:00* Test Item Value Reference Range Interpretation Comments Alkaline Phosphatase (test code = 6768-6) 150 40-150 [facility] HospitalTotal Brmeguvel3343-98-13 22:35:00* Test Item Value Reference Range Interpretation Comments Total Bilirubin (test code = 1975-2) 0.2 0.2-1.2 [facility] HospitalAspartate Amino Transf (AST/SGOT) 2018-03-16 22:35:00* Test Item Value Reference Range Interpretation Comments Aspartate Amino Transf (AST/SGOT) (test code = Aspartate Amino Transf (AST/SGOT)) 10 5-34 [facility] HospitalAlanine Aminotransferase (ALT/SGPT) 2018-03-16 22:35:00* Test Item Value Reference Range Interpretation Comments Alanine Aminotransferase (ALT/SGPT) (test code = 1742-6) 15 0-55 [facility] HospitalTotal Tcyiesc2139-53-13 22:35:00* Test Item Value Reference Range Interpretation Comments Total Protein (test code = 2885-2) 7.3 6.5-8.1 [facility] HospitalAlbumin2018-06-04 22:35:00* Test Item Value Reference Range Interpretation Comments Albumin (test code = 1751-7) 3.8 3.5-5.0 [facility] 22:35:00* Test Item Value Reference Range Interpretation Comments Globulin (test code = 52793-0) 3.5 2.3-3.5 [facility] HospitalAlbumin/Globulin Xovsc1365-76-39 22:35:00 * Test Item Value Reference Range Interpretation Comments Albumin/Globulin Ratio (test code = 1759-0) 1.1 0.8-2.0 [facility] HospitalAlkaline Swsppfocvjl3757-64-98 22:35:00* Test Item Value Reference Range Interpretation Comments Alkaline Phosphatase (test code = 6768-6) 150 40-150 [facility] HospitalTotal Cnvwdnhgw5702-52-32 22:35:00* Test Item Value Reference Range Interpretation Comments Total Bilirubin (test code = 1975-2) 0.2 0.2-1.2 [facility] HospitalAspartate Amino Transf (AST/SGOT) 2018-03-16 22:35:00* Test Item Value Reference Range Interpretation Comments Aspartate Amino Transf (AST/SGOT) (test code = Aspartate Amino Transf (AST/SGOT)) 10 5-34 [facility] HospitalAlanine Aminotransferase (ALT/SGPT) 2018-03-16 22:35:00* Test Item Value Reference Range Interpretation Comments Alanine Aminotransferase (ALT/SGPT) (test code = 1742-6) 15 0-55 [facility] HospitalTotal Oiekpyr4900-34-07 22:35:00* Test Item Value Reference Range Interpretation Comments Total Protein (test code = 2885-2) 7.3 6.5-8.1 [facility] HospitalAlbumin2018-06-04 22:35:00* Test Item Value Reference Range Interpretation Comments Albumin (test code = 1751-7) 3.8 3.5-5.0 [facility] HospitalGlobulin2018-06-04 22:35:00* Test Item Value Reference Range Interpretation Comments Globulin (test code = 63181-8) 3.5 2.3-3.5 [facility] HospitalAlbumin/Globulin Nxyzv3042-90-71 22:35:00 * Test Item Value Reference Range Interpretation Comments Albumin/Globulin Ratio (test code = 1759-0) 1.1 0.8-2.0 [facility] HospitalAlkaline Iuuxqjvgikn9536-71-19 22:35:00* Test Item Value Reference Range Interpretation Comments Alkaline Phosphatase (test code = 6768-6) 150 40-150 [facility] Chorionic Gonadotropin, Qual 2018-03-16 22:23:00* Test Item Value Reference Range Interpretation Comments Human Chorionic Gonadotropin, Qual (test code = 2118-8) NEGATIVE NEGATIVE [facility] Chorionic Gonadotropin, Qual 2018-03-16 22:23:00* Test Item Value Reference Range Interpretation Comments Human Chorionic Gonadotropin, Qual (test code = 2118-8) NEGATIVE NEGATIVE [facility] Chorionic Gonadotropin, Qual 2018-03-16 22:23:00* Test Item Value Reference Range Interpretation Comments Human Chorionic Gonadotropin, Qual (test code = 2118-8) NEGATIVE NEGATIVE [facility] Chorionic Gonadotropin, Qual 2018-03-16 22:23:00* Test Item Value Reference Range Interpretation Comments Human Chorionic Gonadotropin, Qual (test code = 2118-8) NEGATIVE NEGATIVE [facility] Mimawig9806-06-96 18:08:00* Test Item Value Reference Range Interpretation Comments Blood Culture (test code = 81239870) NO GROWTH AFTER 5 DAYS, FINAL REPORT [facility] Kpdfdwr7467-44-76 18:08:00* Test Item Value Reference Range Interpretation Comments Blood Culture (test code = 97256679) NO GROWTH AFTER 5 DAYS, FINAL REPORT [facility] Tqjgvuu7604-81-97 18:08:00* Test Item Value Reference Range Interpretation Comments Blood Culture (test code = 39802399) NO GROWTH AFTER 5 DAYS, FINAL REPORT [facility] Aeuzspg3520-90-72 18:08:00* Test Item Value Reference Range Interpretation Comments Blood Culture (test code = 20712179) NO GROWTH AFTER 5 DAYS, FINAL REPORT [facility] HospitalLactic Acid Mmafy3755-74-39 00:19:00* Test Item Value Reference Range Interpretation Comments Lactic Acid Level (test code = Lactic Acid Level) 13.4 4.5- 19.8 [facility] HospitalLactic Acid Mohjx1332-33-43 00:19:00* Test Item Value Reference Range Interpretation Comments Lactic Acid Level (test code = Lactic Acid Level) 13.4 4.5- 19.8 [facility] HospitalLactic Acid Pumqa1504-27-79 00:19:00* Test Item Value Reference Range Interpretation Comments Lactic Acid Level (test code = Lactic Acid Level) 13.4 4.5- 19.8 [facility] HospitalLactic Acid Aavva8541-57-42 00:19:00* Test Item Value Reference Range Interpretation Comments Lactic Acid Level (test code = Lactic Acid Level) 13.4 4.5- 19.8 [facility] Ychcw6129-74-27 00:17:00* Test Item Value Reference Range Interpretation Comments Sodium Level (test code = 2951-2) 134 136-145 L [facility] HospitalPotassium Uvccn1098-80-09 00:17:00* Test Item Value Reference Range Interpretation Comments Potassium Level (test code = 2823-3) 3.4 3.5-5.1 L [facility] HospitalChloride Adhgs3237-30-34 00:17:00* Test Item Value Reference Range Interpretation Comments Chloride Level (test code = 2075-0) 102 98-107 [facility] HospitalCarbon Dioxide Gfeyv9675-15-99 00:17:00* Test Item Value Reference Range Interpretation Comments Carbon Dioxide Level (test code = 2028-9) 23 22-29 [facility] HospitalAnion Dvk9925-32-12 00:17:00* Test Item Value Reference Range Interpretation Comments Anion Gap (test code = 44391-0) 12.4 8-16 [facility] HospitalBlood Urea Piobaoyz9663-30-47 00:17:00* Test Item Value Reference Range Interpretation Comments Blood Urea Nitrogen (test code = 3094-0) 5 7-26 L [facility] HospitalCreatinine2017-06-20 00:17:00* Test Item Value Reference Range Interpretation Comments Creatinine (test code = 2160-0) 0.71 0.57-1.11 [facility] HospitalBUN/Creatinine Isuif9027-46-68 00:17:00* Test Item Value Reference Range Interpretation Comments BUN/Creatinine Ratio (test code = 3097-3) 7 6-25 [facility] HospitalEstimat Glomerular Filtration Rate 2017-04-01 00:17:00* Test Item Value Reference Range Interpretation Comments Estimat Glomerular Filtration Rate (test code = 57106-0) 60- >60 Ranges were taken from the National Kidney Disease Education Program and the [facility] literature.Reference ranges:60 or greater: Ttlsrv15-01 ( for 3 consecutive months): Chronic kidney disease 15 or less: Kidney failureHouston [facility] Willow[facility] HospitalGlucose Ltbaw9073-86-44 00:17:00* Test Item Value Reference Range Interpretation Comments Glucose Level (test code = PFH8499) 294 74-118 H [facility] HospitalCalcium Zlwdn9908-94-24 00:17:00* Test Item Value Reference Range Interpretation Comments Calcium Level (test code = 85715-7) 8.8 8.4-10.2 [facility]odium Fnmzc0182-75-14 00:17:00* Test Item Value Reference Range Interpretation Comments Sodium Level (test code = 2951-2) 134 136-145 L [facility] HospitalPotassium Guvqn7737-84-09 00:17:00* Test Item Value Reference Range Interpretation Comments Potassium Level (test code = 2823-3) 3.4 3.5-5.1 L [facility] HospitalChloride Ldmdb0827-06-99 00:17:00* Test Item Value Reference Range Interpretation Comments Chloride Level (test code = 2075-0) 102 98-107 [facility] HospitalCarbon Dioxide Vyxig0978-17-89 00:17:00* Test Item Value Reference Range Interpretation Comments Carbon Dioxide Level (test code = 2028-9) 23 22-29 [facility] HospitalAnion Yxb3148-07-69 00:17:00* Test Item Value Reference Range Interpretation Comments Anion Gap (test code = 83986-5) 12.4 8-16 [facility] HospitalBlood Urea Bgsajuvi8245-47-43 00:17:00* Test Item Value Reference Range Interpretation Comments Blood Urea Nitrogen (test code = 3094-0) 5 7-26 L [facility] HospitalCreatinine2017-06-20 00:17:00* Test Item Value Reference Range Interpretation Comments Creatinine (test code = 2160-0) 0.71 0.57-1.11 [facility] HospitalBUN/Creatinine Uibex2943-21-04 00:17:00* Test Item Value Reference Range Interpretation Comments BUN/Creatinine Ratio (test code = 3097-3) 7 6-25 [facility] HospitalEstimat Glomerular Filtration Rate 2017-04-01 00:17:00* Test Item Value Reference Range Interpretation Comments Estimat Glomerular Filtration Rate (test code = 98150-1) 60- >60 Ranges were taken from the National Kidney Disease Education Program and the [facility] Kidney Foundation literature.Reference ranges:60 or greater: Kzpfzu02-75 ( for 3 consecutive months): Chronic kidney disease 15 or less: Kidney failureHouston [facility] Willowbrook HospitalGlucose Aqtug9779-83-70 00:17:00* Test Item Value Reference Range Interpretation Comments Glucose Level (test code = EEO8550) 294 74-118 H [facility] HospitalCalcium Avpqo3648-34-64 00:17:00* Test Item Value Reference Range Interpretation Comments Calcium Level (test code = 42415-5) 8.8 8.4-10.2 [facility]odium Qrtgt0558-32-90 00:17:00* Test Item Value Reference Range Interpretation Comments Sodium Level (test code = 2951-2) 134 136-145 L [facility] HospitalPotassium Uzlts6722-09-13 00:17:00* Test Item Value Reference Range Interpretation Comments Potassium Level (test code = 2823-3) 3.4 3.5-5.1 L [facility] HospitalChloride Tyyej3779-84-92 00:17:00* Test Item Value Reference Range Interpretation Comments Chloride Level (test code = 2075-0) 102 98-107 [facility] HospitalCarbon Dioxide Rxmdp1269-03-04 00:17:00* Test Item Value Reference Range Interpretation Comments Carbon Dioxide Level (test code = 2028-9) 23 22-29 [facility] HospitalAnion Xuk9610-10-91 00:17:00* Test Item Value Reference Range Interpretation Comments Anion Gap (test code = 70300-2) 12.4 8-16 [facility] HospitalBlood Urea Gwkwoxqc0316-84-53 00:17:00* Test Item Value Reference Range Interpretation Comments Blood Urea Nitrogen (test code = 3094-0) 5 7-26 L [facility] HospitalCreatinine2017-06-20 00:17:00* Test Item Value Reference Range Interpretation Comments Creatinine (test code = 2160-0) 0.71 0.57-1.11 [facility] HospitalBUN/Creatinine Hqsup2786-26-47 00:17:00* Test Item Value Reference Range Interpretation Comments BUN/Creatinine Ratio (test code = 3097-3) 7 6-25 [facility] HospitalEstimat Glomerular Filtration Rate 2017-04-01 00:17:00* Test Item Value Reference Range Interpretation Comments Estimat Glomerular Filtration Rate (test code = 15081-5) 60- >60 Ranges were taken from the National Kidney Disease Education Program and the [facility] literature.Reference ranges:60 or greater: Ioypkg25-95 ( for 3 consecutive months): Chronic kidney disease 15 or less: Kidney failureHouston Methodist Willowbrook HospitalGlucose Brphz3028-09-58 00:17:00* Test Item Value Reference Range Interpretation Comments Glucose Level (test code = AEV1494) 294 74-118 H [facility] HospitalCalcium Yrdnd3906-67-84 00:17:00* Test Item Value Reference Range Interpretation Comments Calcium Level (test code = 64853-9) 8.8 8.4-10.2 [facility]odium Tzwwo6273-07-72 00:17:00* Test Item Value Reference Range Interpretation Comments Sodium Level (test code = 2951-2) 134 136-145 L [facility] HospitalPotassium Sfbwd4819-24-62 00:17:00* Test Item Value Reference Range Interpretation Comments Potassium Level (test code = 2823-3) 3.4 3.5-5.1 L [facility] HospitalChloride Vmdem7307-24-90 00:17:00* Test Item Value Reference Range Interpretation Comments Chloride Level (test code = 2075-0) 102 98-107 [facility] HospitalCarbon Dioxide Gxbwv9050-96-93 00:17:00* Test Item Value Reference Range Interpretation Comments Carbon Dioxide Level (test code = 2028-9) 23 22-29 [facility] HospitalAnion Dba0182-87-42 00:17:00* Test Item Value Reference Range Interpretation Comments Anion Gap (test code = 03138-7) 12.4 8-16 [facility] HospitalBlood Urea Xyojpsil6290-03-74 00:17:00* Test Item Value Reference Range Interpretation Comments Blood Urea Nitrogen (test code = 3094-0) 5 7-26 L [facility] HospitalCreatinine2017-06-20 00:17:00* Test Item Value Reference Range Interpretation Comments Creatinine (test code = 2160-0) 0.71 0.57-1.11 [facility] HospitalBUN/Creatinine Gtpvq0342-86-61 00:17:00* Test Item Value Reference Range Interpretation Comments BUN/Creatinine Ratio (test code = 3097-3) 7 6-25 [facility] HospitalEstimat Glomerular Filtration Rate 2017-04-01 00:17:00* Test Item Value Reference Range Interpretation Comments Estimat Glomerular Filtration Rate (test code = 42111-2) 60- >60 Ranges were taken from the National Kidney Disease Education Program and the [facility] Foundation literature.Reference ranges:60 or greater: Xlsiht10-90 ( for 3 consecutive months): Chronic kidney disease 15 or less: Kidney failureHouston Methodist Willowbrook HospitalGlucose Hcqmk5448-47-66 00:17:00* Test Item Value Reference Range Interpretation Comments Glucose Level (test code = ZUU5820) 294 74-118 H [facility] HospitalCalcium Irkdq2949-48-35 00:17:00* Test Item Value Reference Range Interpretation Comments Calcium Level (test code = 26361-7) 8.8 8.4-10.2 [facility] HospitalUrine FRS6183-75-38 19:10:00* Test Item Value Reference Range Interpretation Comments Urine WBC (test code = 5821-4) 6-10 0-5 H [facility] HospitalUrine PCV9585-69-60 19:10:00* Test Item Value Reference Range Interpretation Comments Urine RBC (test code = 06904-7) NONE 0-5 [facility] Sapexwjm1973-14-50 19:10:00* Test Item Value Reference Range Interpretation Comments Urine Bacteria (test code = 96441-8) FEW NONE [facility] HospitalUrine Epithelial Vgktv8842-65-58 19:10:00 * Test Item Value Reference Range Interpretation Comments Urine Epithelial Cells (test code = 25146-8) MODERATE NONE [facility] HospitalUrine Ostmt4515-93-82 19:10:00* Test Item Value Reference Range Interpretation Comments Urine Yeast (test code = 97731-8) RARE NONE H [facility] HospitalUrine LSN6875-86-00 19:10:00* Test Item Value Reference Range Interpretation Comments Urine WBC (test code = 5821-4) 6-10 0-5 H [facility] HospitalUrine HLY9018-61-41 19:10:00* Test Item Value Reference Range Interpretation Comments Urine RBC (test code = 27708-4) NONE 0-5 [facility] HospitalUrine Dopqqogr4037-18-23 19:10:00* Test Item Value Reference Range Interpretation Comments Urine Bacteria (test code = 62120-7) FEW NONE [facility] HospitalUrine Epithelial Qotpo2137-93-86 19:10:00 * Test Item Value Reference Range Interpretation Comments Urine Epithelial Cells (test code = 94497-0) MODERATE NONE [facility] Smurk7303-96-58 19:10:00* Test Item Value Reference Range Interpretation Comments Urine Yeast (test code = 70821-2) RARE NONE H [facility] FUG7317-10-30 19:10:00* Test Item Value Reference Range Interpretation Comments Urine WBC (test code = 5821-4) 6-10 0-5 H [facility] KBM4890-14-22 19:10:00* Test Item Value Reference Range Interpretation Comments Urine RBC (test code = 09409-1) NONE 0-5 [facility] HospitalUrine Wiqvipqv0311-10-52 19:10:00* Test Item Value Reference Range Interpretation Comments Urine Bacteria (test code = 40082-1) FEW NONE [facility] HospitalUrine Epithelial Tekul9357-88-19 19:10:00 * Test Item Value Reference Range Interpretation Comments Urine Epithelial Cells (test code = 75410-2) MODERATE NONE [facility] Rdbtk8986-06-16 19:10:00* Test Item Value Reference Range Interpretation Comments Urine Yeast (test code = 07868-7) RARE NONE H [facility] UGW9303-65-89 19:10:00* Test Item Value Reference Range Interpretation Comments Urine WBC (test code = 5821-4) 6-10 0-5 H [facility] HospitalUrine VWZ5416-32-75 19:10:00* Test Item Value Reference Range Interpretation Comments Urine RBC (test code = 29380-3) NONE 0-5 [facility] HospitalU[facility] Xcprtleu2240-44-91 19:10:00* Test Item Value Reference Range Interpretation Comments Urine Bacteria (test code = 79210-3) FEW NONE [facility] HospitalUrine Epithelial Suubf7736-70-83 19:10:00 * Test Item Value Reference Range Interpretation Comments Urine Epithelial Cells (test code = 29703-9) MODERATE NONE [facility] Rvcqw1668-46-90 19:10:00* Test Item Value Reference Range Interpretation Comments Urine Yeast (test code = 61290-5) RARE NONE H [facility] Jbqab6696-18-59 19:07:00* Test Item Value Reference Range Interpretation Comments Urine Color (test code = 5778-6) YELLOW YELLOW [facility] HospitalUrine Ihbgoid7631-29-79 19:07:00* Test Item Value Reference Range Interpretation Comments Urine Clarity (test code = 43216-3) CLEAR CLEAR [facility] HospitalUrine Specific Xcafgpo8862-94-82 19:07:00 * Test Item Value Reference Range Interpretation Comments Urine Specific [place] (test code = 5811-5) 1.005 1.010-1.02 5 L [facility] HospitalUrine dL6972-27-68 19:07:00* Test Item Value Reference Range Interpretation Comments Urine pH (test code = 62534-8) 5 5-7 [facility] Leukocyte Ibbcwrkb5566-80-00 19:07:00* Test Item Value Reference Range Interpretation Comments Urine Leukocyte Esterase (test code = 5799-2) TRACE NEGATIVE H [facility] Tijcxxf4015-81-10 19:07:00* Test Item Value Reference Range Interpretation Comments Urine Nitrite (test code = 84201-8) NEGATIVE NEGATIVE [facility] Zomdmis4877-42-78 19:07:00* Test Item Value Reference Range Interpretation Comments Urine Protein (test code = 5804-0) NEGATIVE NEGATIVE [facility] Glucose (UA)2017-03-31 19:07:00* Test Item Value Reference Range Interpretation Comments Urine Glucose (UA) (test code = 2349-9) 3+ NEGATIVE H [facility] Rfoggyu9828-44-81 19:07:00* Test Item Value Reference Range Interpretation Comments Urine Ketones (test code = 86220-5) NEGATIVE NEGATIVE [facility] HospitalU[facility] Cmcgiexbcdeb1174-17-52 19:07:00* Test Item Value Reference Range Interpretation Comments Urine Urobilinogen (test code = 34274-0) 0.2 0.2-1 [facility] HospitalU[facility] Evmqxmyeu6612-10-40 19:07:00* Test Item Value Reference Range Interpretation Comments Urine Bilirubin (test code = 1978-6) NEGATIVE NEGATIVE [facility] HospitalU[facility] Sodxh9386-57-64 19:07:00* Test Item Value Reference Range Interpretation Comments Urine Blood (test code = 08771-4) NEGATIVE NEGATIVE [facility] HospitalU[facility] Cqnzr9015-74-15 19:07:00* Test Item Value Reference Range Interpretation Comments Urine Color (test code = 5778-6) YELLOW YELLOW [facility] Tdvjtkn3222-19-55 19:07:00* Test Item Value Reference Range Interpretation Comments Urine Clarity (test code = 95732-5) CLEAR CLEAR [facility] HospitalU[facility] Specific Ujqhduo3481-24-28 19:07:00 * Test Item Value Reference Range Interpretation Comments Urine Specific [place] (test code = 5811-5) 1.005 1.010-1.02 5 L [facility] wF4649-28-07 19:07:00* Test Item Value Reference Range Interpretation Comments Urine pH (test code = 16011-7) 5 5-7 [facility] Leukocyte Uavrmskw9689-73-11 19:07:00* Test Item Value Reference Range Interpretation Comments Urine Leukocyte Esterase (test code = 5799-2) TRACE NEGATIVE H [facility] Jzedhvv1298-41-91 19:07:00* Test Item Value Reference Range Interpretation Comments Urine Nitrite (test code = 27592-6) NEGATIVE NEGATIVE [facility] Mkcwcoe8698-29-98 19:07:00* Test Item Value Reference Range Interpretation Comments Urine Protein (test code = 5804-0) NEGATIVE NEGATIVE [facility] Glucose (UA)2017-03-31 19:07:00* Test Item Value Reference Range Interpretation Comments Urine Glucose (UA) (test code = 2349-9) 3+ NEGATIVE H [facility] Fsurheh7438-24-64 19:07:00* Test Item Value Reference Range Interpretation Comments Urine Ketones (test code = 11036-7) NEGATIVE NEGATIVE [facility] Roktubfurtaa8622-71-42 19:07:00* Test Item Value Reference Range Interpretation Comments Urine Urobilinogen (test code = 31595-2) 0.2 0.2-1 [facility] Qhypsiizj8691-56-38 19:07:00* Test Item Value Reference Range Interpretation Comments Urine Bilirubin (test code = 1978-6) NEGATIVE NEGATIVE [facility] Cffze8748-82-44 19:07:00* Test Item Value Reference Range Interpretation Comments Urine Blood (test code = 47823-4) NEGATIVE NEGATIVE [facility] Jvicx3497-60-41 19:07:00* Test Item Value Reference Range Interpretation Comments Urine Color (test code = 5778-6) YELLOW YELLOW [facility] Qknnkji5445-43-60 19:07:00* Test Item Value Reference Range Interpretation Comments Urine Clarity (test code = 64250-4) CLEAR CLEAR [facility] HospitalU[facility] Specific Cbruqmx1029-30-68 19:07:00 * Test Item Value Reference Range Interpretation Comments Urine Specific [place] (test code = 5811-5) 1.005 1.010-1.02 5 L [facility] bX7836-20-91 19:07:00* Test Item Value Reference Range Interpretation Comments Urine pH (test code = 24465-8) 5 5-7 [facility] Leukocyte Yvzdipek7220-80-64 19:07:00* Test Item Value Reference Range Interpretation Comments Urine Leukocyte Esterase (test code = 5799-2) TRACE NEGATIVE H [facility] Qealmlp3805-01-36 19:07:00* Test Item Value Reference Range Interpretation Comments Urine Nitrite (test code = 73990-7) NEGATIVE NEGATIVE [facility] Qxnuqcf0576-81-74 19:07:00* Test Item Value Reference Range Interpretation Comments Urine Protein (test code = 5804-0) NEGATIVE NEGATIVE [facility] Glucose (UA)2017-03-31 19:07:00* Test Item Value Reference Range Interpretation Comments Urine Glucose (UA) (test code = 2349-9) 3+ NEGATIVE H [facility] Ccsivta0542-42-29 19:07:00* Test Item Value Reference Range Interpretation Comments Urine Ketones (test code = 62549-0) NEGATIVE NEGATIVE [facility] Qxxihdgbbchn7137-64-14 19:07:00* Test Item Value Reference Range Interpretation Comments Urine Urobilinogen (test code = 09389-1) 0.2 0.2-1 [facility] Ddxqmbjwv1465-09-77 19:07:00* Test Item Value Reference Range Interpretation Comments Urine Bilirubin (test code = 1978-6) NEGATIVE NEGATIVE [facility] Qkeuv3815-64-60 19:07:00* Test Item Value Reference Range Interpretation Comments Urine Blood (test code = 26596-4) NEGATIVE NEGATIVE [facility] Haftm6721-10-63 19:07:00* Test Item Value Reference Range Interpretation Comments Urine Color (test code = 5778-6) YELLOW YELLOW [facility] Pxgmkdf9102-73-12 19:07:00* Test Item Value Reference Range Interpretation Comments Urine Clarity (test code = 58180-7) CLEAR CLEAR [facility] Specific Obemjjw0740-16-40 19:07:00 * Test Item Value Reference Range Interpretation Comments Urine Specific [place] (test code = 5811-5) 1.005 1.010-1.02 5 L [facility] HospitalUrine [id number] 19:07:00* Test Item Value Reference Range Interpretation Comments Urine pH (test code = 10132-4) 5 5-7 [facility] Leukocyte Narnlzxg4501-39-56 19:07:00* Test Item Value Reference Range Interpretation Comments Urine Leukocyte Esterase (test code = 5799-2) TRACE NEGATIVE H [facility]Urine Pgoitkm6002-21-19 19:07:00* Test Item Value Reference Range Interpretation Comments Urine Nitrite (test code = 69107-6) NEGATIVE NEGATIVE [facility] Vxijecl7601-61-35 19:07:00* Test Item Value Reference Range Interpretation Comments Urine Protein (test code = 5804-0) NEGATIVE NEGATIVE [facility] HospitalU[facility] Glucose (UA)2017-03-31 19:07:00* Test Item Value Reference Range Interpretation Comments Urine Glucose (UA) (test code = 2349-9) 3+ NEGATIVE H [facility]Urine Ztqtizp1228-88-55 19:07:00* Test Item Value Reference Range Interpretation Comments Urine Ketones (test code = 35242-9) NEGATIVE NEGATIVE [facility] Nvgvrssrzsfk2978-45-63 19:07:00* Test Item Value Reference Range Interpretation Comments Urine Urobilinogen (test code = 14428-7) 0.2 0.2-1 [facility]Urine Vmxpfonhm8764-18-34 19:07:00* Test Item Value Reference Range Interpretation Comments Urine Bilirubin (test code = 1978-6) NEGATIVE NEGATIVE [facility] Ccqcu0446-50-08 19:07:00* Test Item Value Reference Range Interpretation Comments Urine Blood (test code = 38134-4) NEGATIVE NEGATIVE [facility] HospitalTotal Vwlkohasq4565-56-81 18:33:00* Test Item Value Reference Range Interpretation Comments Total Bilirubin (test code = 1975-2) 0.2 0.2-1.2 [facility] HospitalAspartate Amino Transf (AST/SGOT) 2017-03-31 18:33:00* Test Item Value Reference Range Interpretation Comments Aspartate Amino Transf (AST/SGOT) (test code = Aspartate Amino Transf (AST/SGOT)) 11 5-34 [facility] HospitalAlanine Aminotransferase (ALT/SGPT) 2017-03-31 18:33:00* Test Item Value Reference Range Interpretation Comments Alanine Aminotransferase (ALT/SGPT) (test code = 1742-6) 14 0-55 [facility] HospitalTotal Fhpdszy5448-55-74 18:33:00* Test Item Value Reference Range Interpretation Comments Total Protein (test code = 2885-2) 7.7 6.5-8.1 [facility] HospitalAlbumin2017-06-19 18:33:00* Test Item Value Reference Range Interpretation Comments Albumin (test code = 1751-7) 3.9 3.5-5.0 [facility] HospitalGlobulin2017-06-19 18:33:00* Test Item Value Reference Range Interpretation Comments Globulin (test code = 62546-2) 3.8 2.3-3.5 H [facility] HospitalAlbumin/Globulin Xyazg3538-01-76 18:33:00 * Test Item Value Reference Range Interpretation Comments Albumin/Globulin Ratio (test code = 1759-0) 1.0 0.8-2.0 [facility] HospitalAlkaline Yuwdoucphkd4118-04-66 18:33:00* Test Item Value Reference Range Interpretation Comments Alkaline Phosphatase (test code = 6768-6) 156 40-150 H [facility] HospitalTotal Remkecyfu1991-29-86 18:33:00* Test Item Value Reference Range Interpretation Comments Total Bilirubin (test code = 1975-2) 0.2 0.2-1.2 [facility] HospitalAspartate Amino Transf (AST/SGOT) 2017-03-31 18:33:00* Test Item Value Reference Range Interpretation Comments Aspartate Amino Transf (AST/SGOT) (test code = Aspartate Amino Transf (AST/SGOT)) 11 5-34 [facility] HospitalAlanine Aminotransferase (ALT/SGPT) 2017-03-31 18:33:00* Test Item Value Reference Range Interpretation Comments Alanine Aminotransferase (ALT/SGPT) (test code = 1742-6) 14 0-55 [facility] Adxpoxd1054-13-25 18:33:00* Test Item Value Reference Range Interpretation Comments Total Protein (test code = 2885-2) 7.7 6.5-8.1 [facility] HospitalAlbumin2017-06-19 18:33:00* Test Item Value Reference Range Interpretation Comments Albumin (test code = 1751-7) 3.9 3.5-5.0 [facility] HospitalGlobulin2017-06-19 18:33:00* Test Item Value Reference Range Interpretation Comments Globulin (test code = 45041-6) 3.8 2.3-3.5 H [facility] HospitalAlbumin/Globulin Gjfug2422-66-45 18:33:00 * Test Item Value Reference Range Interpretation Comments Albumin/Globulin Ratio (test code = 1759-0) 1.0 0.8-2.0 [facility] HospitalAlkaline Rwdummaiqmv6729-80-89 18:33:00* Test Item Value Reference Range Interpretation Comments Alkaline Phosphatase (test code = 6768-6) 156 40-150 H [facility] Tmxrdtnsy6654-42-86 18:33:00* Test Item Value Reference Range Interpretation Comments Total Bilirubin (test code = 1975-2) 0.2 0.2-1.2 [facility] HospitalAspartate Amino Transf (AST/SGOT) 2017-03-31 18:33:00* Test Item Value Reference Range Interpretation Comments Aspartate Amino Transf (AST/SGOT) (test code = Aspartate Amino Transf (AST/SGOT)) 11 5-34 [facility] HospitalAlanine Aminotransferase (ALT/SGPT) 2017-03-31 18:33:00* Test Item Value Reference Range Interpretation Comments Alanine Aminotransferase (ALT/SGPT) (test code = 1742-6) 14 0-55 [facility] Wqxyejn9717-73-92 18:33:00* Test Item Value Reference Range Interpretation Comments Total Protein (test code = 2885-2) 7.7 6.5-8.1 [facility] HospitalAlbumin2017-06-19 18:33:00* Test Item Value Reference Range Interpretation Comments Albumin (test code = 1751-7) 3.9 3.5-5.0 [facility] HospitalGlobulin2017-06-19 18:33:00* Test Item Value Reference Range Interpretation Comments Globulin (test code = 08253-0) 3.8 2.3-3.5 H [facility] HospitalAlbumin/Globulin Sbyin6164-59-43 18:33:00 * Test Item Value Reference Range Interpretation Comments Albumin/Globulin Ratio (test code = 1759-0) 1.0 0.8-2.0 [facility] HospitalAlkaline Vtqaikdeygc5337-35-97 18:33:00* Test Item Value Reference Range Interpretation Comments Alkaline Phosphatase (test code = 6768-6) 156 40-150 H [facility] HospitalTotal Qerpaegeo3729-07-73 18:33:00* Test Item Value Reference Range Interpretation Comments Total Bilirubin (test code = 1975-2) 0.2 0.2-1.2 [facility] HospitalAspartate Amino Transf (AST/SGOT) 2017-03-31 18:33:00* Test Item Value Reference Range Interpretation Comments Aspartate Amino Transf (AST/SGOT) (test code = Aspartate Amino Transf (AST/SGOT)) 11 5-34 [facility] HospitalAlanine Aminotransferase (ALT/SGPT) 2017-03-31 18:33:00* Test Item Value Reference Range Interpretation Comments Alanine Aminotransferase (ALT/SGPT) (test code = 1742-6) 14 0-55 [facility] HospitalTotal Rxdqqfl9547-06-13 18:33:00* Test Item Value Reference Range Interpretation Comments Total Protein (test code = 2885-2) 7.7 6.5-8.1 [facility] HospitalAlbumin2017-06-19 18:33:00* Test Item Value Reference Range Interpretation Comments Albumin (test code = 1751-7) 3.9 3.5-5.0 [facility] HospitalGlobulin2017-06-19 18:33:00* Test Item Value Reference Range Interpretation Comments Globulin (test code = 67778-8) 3.8 2.3-3.5 H [facility] HospitalAlbumin/Globulin Pshxo6167-19-17 18:33:00 * Test Item Value Reference Range Interpretation Comments Albumin/Globulin Ratio (test code = 1759-0) 1.0 0.8-2.0 [facility] HospitalAlkaline Uxqscfaxfhc6344-65-34 18:33:00* Test Item Value Reference Range Interpretation Comments Alkaline Phosphatase (test code = 6768-6) 156 40-150 H [facility] HospitalWhite Blood Tcxhw7494-93-12 18:13:00* Test Item Value Reference Range Interpretation Comments White Blood Count (test code = 6690-2) 4.77 4.8-10.8 L [facility] HospitalRed Blood Zfkeb7543-72-91 18:13:00* Test Item Value Reference Range Interpretation Comments Red Blood Count (test code = 789-8) 5.09 3.6-5.1 [facility] HospitalHemoglobin2017-06-19 18:13:00* Test Item Value Reference Range Interpretation Comments Hemoglobin (test code = 42047-7) 15.0 12.0-16.0 [facility] HospitalHematocrit2017-06-19 18:13:00* Test Item Value Reference Range Interpretation Comments Hematocrit (test code = 4544-3) 43.5 34.2-44.1 [facility] HospitalMean Corpuscular Yyszqy9038-46-26 18:13:00* Test Item Value Reference Range Interpretation Comments Mean Corpuscular Volume (test code = 787-2) 85.5 81-99 [facility] HospitalMean Corpuscular Btafjqxkmk1774-28-11 18:13:00* Test Item Value Reference Range Interpretation Comments Mean Corpuscular Hemoglobin (test code = 785-6) 29.5 28-32 [facility] HospitalMean Corpuscular Hemoglobin Concent 2017-03-31 18:13:00* Test Item Value Reference Range Interpretation Comments Mean Corpuscular Hemoglobin Concent (test code = 786-4) 34.5 31-35 [facility] HospitalRed Cell Distribution Dmitr1997-45-45 18:13:00* Test Item Value Reference Range Interpretation Comments Red Cell Distribution Width (test code = 71640-3) 11.9 11.7 -14.4 [facility] HospitalPlatelet Fxqql8017-80-70 18:13:00* Test Item Value Reference Range Interpretation Comments Platelet Count (test code = 777-3) 221 140-360 [facility] HospitalNeutrophils (%) (Auto)2017-03-31 18:13:00 * Test Item Value Reference Range Interpretation Comments Neutrophils (%) (Auto) (test code = 40231-1) 41.4 38.7-80.0 [facility] HospitalLymphocytes (%) (Auto)2017-03-31 18:13:00 * Test Item Value Reference Range Interpretation Comments Lymphocytes (%) (Auto) (test code = 736-9) 47.2 18.0-39.1 H [facility] HospitalMonocytes (%) (Auto)2017-03-31 18:13:00* Test Item Value Reference Range Interpretation Comments Monocytes (%) (Auto) (test code = 5905-5) 9.6 4.4-11.3 [facility] HospitalEosinophils (%) (Auto)2017-03-31 18:13:00 * Test Item Value Reference Range Interpretation Comments Eosinophils (%) (Auto) (test code = 713-8) 1.0 0.0-6.0 [facility] HospitalBasophils (%) (Auto)2017-03-31 18:13:00* Test Item Value Reference Range Interpretation Comments Basophils (%) (Auto) (test code = 706-2) 0.6 0.0-1.0 [facility] HospitalIM GRANULOCYTES %2017-03-31 18:13:00* Test Item Value Reference Range Interpretation Comments IM GRANULOCYTES % (test code = IM GRANULOCYTES %) 0.2 0.0- 1.0 [facility] HospitalNeutrophils # (Auto)2017-03-31 18:13:00* Test Item Value Reference Range Interpretation Comments Neutrophils # (Auto) (test code = 751-8) 2.0 2.1-6.9 L [facility] HospitalLymphocytes # (Auto)2017-03-31 18:13:00* Test Item Value Reference Range Interpretation Comments Lymphocytes # (Auto) (test code = 46202-1) 2.3 1.0-3.2 [facility] HospitalMonocytes # (Auto)2017-03-31 18:13:00* Test Item Value Reference Range Interpretation Comments Monocytes # (Auto) (test code = 742-7) 0.5 0.2-0.8 [facility] HospitalEosinophils # (Auto)2017-03-31 18:13:00* Test Item Value Reference Range Interpretation Comments Eosinophils # (Auto) (test code = 711-2) 0.1 0.0-0.4 [facility] HospitalBasophils # (Auto)2017-03-31 18:13:00* Test Item Value Reference Range Interpretation Comments Basophils # (Auto) (test code = 704-7) 0.0 0.0-0.1 [facility] HospitalAbsolute Immature Granulocyte (auto 2017-03-31 18:13:00* Test Item Value Reference Range Interpretation Comments Absolute Immature Granulocyte (auto (chiquita t code = Absolute Immature Granulocyte (auto) 0.01 0-0.1 [facility] HospitalWhite Blood Alqti8542-13-19 18:13:00* Test Item Value Reference Range Interpretation Comments White Blood Count (test code = 6690-2) 4.77 4.8-10.8 L [facility] HospitalRed Blood Gdmko0791-04-13 18:13:00* Test Item Value Reference Range Interpretation Comments Red Blood Count (test code = 789-8) 5.09 3.6-5.1 [facility] HospitalHemoglobin2017-06-19 18:13:00* Test Item Value Reference Range Interpretation Comments Hemoglobin (test code = 95606-9) 15.0 12.0-16.0 [facility] HospitalHematocrit2017-06-19 18:13:00* Test Item Value Reference Range Interpretation Comments Hematocrit (test code = 4544-3) 43.5 34.2-44.1 [facility] HospitalMean Corpuscular Aafsvl5857-66-76 18:13:00* Test Item Value Reference Range Interpretation Comments Mean Corpuscular Volume (test code = 787-2) 85.5 81-99 [facility] HospitalMean Corpuscular Essxhzgsqv2265-56-95 18:13:00* Test Item Value Reference Range Interpretation Comments Mean Corpuscular Hemoglobin (test code = 785-6) 29.5 28-32 [facility] HospitalMean Corpuscular Hemoglobin Concent 2017-03-31 18:13:00* Test Item Value Reference Range Interpretation Comments Mean Corpuscular Hemoglobin Concent (test code = 786-4) 34.5 31-35 [facility] HospitalRed Cell Distribution Ywdkq9662-15-76 18:13:00* Test Item Value Reference Range Interpretation Comments Red Cell Distribution Width (test code = 25481-0) 11.9 11.7 -14.4 [facility] HospitalPlatelet Mmdxr8616-13-05 18:13:00* Test Item Value Reference Range Interpretation Comments Platelet Count (test code = 777-3) 221 140-360 [facility] HospitalNeutrophils (%) (Auto)2017-03-31 18:13:00 * Test Item Value Reference Range Interpretation Comments Neutrophils (%) (Auto) (test code = 70398-9) 41.4 38.7-80.0 [facility] HospitalLymphocytes (%) (Auto)2017-03-31 18:13:00 * Test Item Value Reference Range Interpretation Comments Lymphocytes (%) (Auto) (test code = 736-9) 47.2 18.0-39.1 H [facility] HospitalMonocytes (%) (Auto)2017-03-31 18:13:00* Test Item Value Reference Range Interpretation Comments Monocytes (%) (Auto) (test code = 5905-5) 9.6 4.4-11.3 [facility] HospitalEosinophils (%) (Auto)2017-03-31 18:13:00 * Test Item Value Reference Range Interpretation Comments Eosinophils (%) (Auto) (test code = 713-8) 1.0 0.0-6.0 [facility] HospitalBasophils (%) (Auto)2017-03-31 18:13:00* Test Item Value Reference Range Interpretation Comments Basophils (%) (Auto) (test code = 706-2) 0.6 0.0-1.0 [facility] HospitalIM GRANULOCYTES %2017-03-31 18:13:00* Test Item Value Reference Range Interpretation Comments IM GRANULOCYTES % (test code = IM GRANULOCYTES %) 0.2 0.0- 1.0 [facility] HospitalNeutrophils # (Auto)2017-03-31 18:13:00* Test Item Value Reference Range Interpretation Comments Neutrophils # (Auto) (test code = 751-8) 2.0 2.1-6.9 L [facility] HospitalLymphocytes # (Auto)2017-03-31 18:13:00* Test Item Value Reference Range Interpretation Comments Lymphocytes # (Auto) (test code = 31830-2) 2.3 1.0-3.2 [facility] HospitalMonocytes # (Auto)2017-03-31 18:13:00* Test Item Value Reference Range Interpretation Comments Monocytes # (Auto) (test code = 742-7) 0.5 0.2-0.8 [facility] HospitalEosinophils # (Auto)2017-03-31 18:13:00* Test Item Value Reference Range Interpretation Comments Eosinophils # (Auto) (test code = 711-2) 0.1 0.0-0.4 [facility] HospitalBasophils # (Auto)2017-03-31 18:13:00* Test Item Value Reference Range Interpretation Comments Basophils # (Auto) (test code = 704-7) 0.0 0.0-0.1 [facility] HospitalAbsolute Immature Granulocyte (auto 2017-03-31 18:13:00* Test Item Value Reference Range Interpretation Comments Absolute Immature Granulocyte (auto (chiquita t code = Absolute Immature Granulocyte (auto) 0.01 0-0.1 [facility] HospitalWhite Blood Zgfod7047-29-46 18:13:00* Test Item Value Reference Range Interpretation Comments White Blood Count (test code = 6690-2) 4.77 4.8-10.8 L [facility] HospitalRed Blood Pbjqa2995-16-90 18:13:00* Test Item Value Reference Range Interpretation Comments Red Blood Count (test code = 789-8) 5.09 3.6-5.1 [facility] HospitalHemoglobin2017-06-19 18:13:00* Test Item Value Reference Range Interpretation Comments Hemoglobin (test code = 66678-8) 15.0 12.0-16.0 [facility] HospitalHematocrit2017-06-19 18:13:00* Test Item Value Reference Range Interpretation Comments Hematocrit (test code = 4544-3) 43.5 34.2-44.1 [facility] HospitalMean Corpuscular Nbvgtw2297-13-11 18:13:00* Test Item Value Reference Range Interpretation Comments Mean Corpuscular Volume (test code = 787-2) 85.5 81-99 [facility] HospitalMean Corpuscular Ghuxomcbye0847-99-53 18:13:00* Test Item Value Reference Range Interpretation Comments Mean Corpuscular Hemoglobin (test code = 785-6) 29.5 28-32 [facility] HospitalMean Corpuscular Hemoglobin Concent 2017-03-31 18:13:00* Test Item Value Reference Range Interpretation Comments Mean Corpuscular Hemoglobin Concent (test code = 786-4) 34.5 31-35 [facility] HospitalRed Cell Distribution Xteez1209-89-15 18:13:00* Test Item Value Reference Range Interpretation Comments Red Cell Distribution Width (test code = 94798-1) 11.9 11.7 -14.4 [facility] HospitalPlatelet Njbwn8982-00-46 18:13:00* Test Item Value Reference Range Interpretation Comments Platelet Count (test code = 777-3) 221 140-360 [facility] HospitalNeutrophils (%) (Auto)2017-03-31 18:13:00 * Test Item Value Reference Range Interpretation Comments Neutrophils (%) (Auto) (test code = 72730-3) 41.4 38.7-80.0 [facility] HospitalLymphocytes (%) (Auto)2017-03-31 18:13:00 * Test Item Value Reference Range Interpretation Comments Lymphocytes (%) (Auto) (test code = 736-9) 47.2 18.0-39.1 H [facility] HospitalMonocytes (%) (Auto)2017-03-31 18:13:00* Test Item Value Reference Range Interpretation Comments Monocytes (%) (Auto) (test code = 5905-5) 9.6 4.4-11.3 [facility] HospitalEosinophils (%) (Auto)2017-03-31 18:13:00 * Test Item Value Reference Range Interpretation Comments Eosinophils (%) (Auto) (test code = 713-8) 1.0 0.0-6.0 [facility] HospitalBasophils (%) (Auto)2017-03-31 18:13:00* Test Item Value Reference Range Interpretation Comments Basophils (%) (Auto) (test code = 706-2) 0.6 0.0-1.0 [facility] HospitalIM GRANULOCYTES %2017-03-31 18:13:00* Test Item Value Reference Range Interpretation Comments IM GRANULOCYTES % (test code = IM GRANULOCYTES %) 0.2 0.0- 1.0 [facility] HospitalNeutrophils # (Auto)2017-03-31 18:13:00* Test Item Value Reference Range Interpretation Comments Neutrophils # (Auto) (test code = 751-8) 2.0 2.1-6.9 L [facility] HospitalLymphocytes # (Auto)2017-03-31 18:13:00* Test Item Value Reference Range Interpretation Comments Lymphocytes # (Auto) (test code = 64731-1) 2.3 1.0-3.2 [facility] HospitalMonocytes # (Auto)2017-03-31 18:13:00* Test Item Value Reference Range Interpretation Comments Monocytes # (Auto) (test code = 742-7) 0.5 0.2-0.8 [facility] HospitalEosinophils # (Auto)2017-03-31 18:13:00* Test Item Value Reference Range Interpretation Comments Eosinophils # (Auto) (test code = 711-2) 0.1 0.0-0.4 [facility] HospitalBasophils # (Auto)2017-03-31 18:13:00* Test Item Value Reference Range Interpretation Comments Basophils # (Auto) (test code = 704-7) 0.0 0.0-0.1 [facility] HospitalAbsolute Immature Granulocyte (auto 2017-03-31 18:13:00* Test Item Value Reference Range Interpretation Comments Absolute Immature Granulocyte (auto (chiquita t code = Absolute Immature Granulocyte (auto) 0.01 0-0.1 [facility] HospitalWhite Blood Ebmtq9453-96-97 18:13:00* Test Item Value Reference Range Interpretation Comments White Blood Count (test code = 6690-2) 4.77 4.8-10.8 L [facility] HospitalRed Blood Beeyp8222-28-68 18:13:00* Test Item Value Reference Range Interpretation Comments Red Blood Count (test code = 789-8) 5.09 3.6-5.1 [facility] HospitalHemoglobin2017-06-19 18:13:00* Test Item Value Reference Range Interpretation Comments Hemoglobin (test code = 75689-1) 15.0 12.0-16.0 [facility] HospitalHematocrit2017-06-19 18:13:00* Test Item Value Reference Range Interpretation Comments Hematocrit (test code = 4544-3) 43.5 34.2-44.1 [facility] HospitalMean Corpuscular Lgvhjk8309-07-16 18:13:00* Test Item Value Reference Range Interpretation Comments Mean Corpuscular Volume (test code = 787-2) 85.5 81-99 [facility] HospitalMean Corpuscular Otndljosck5369-52-39 18:13:00* Test Item Value Reference Range Interpretation Comments Mean Corpuscular Hemoglobin (test code = 785-6) 29.5 28-32 [facility] HospitalMean Corpuscular Hemoglobin Concent 2017-03-31 18:13:00* Test Item Value Reference Range Interpretation Comments Mean Corpuscular Hemoglobin Concent (test code = 786-4) 34.5 31-35 [facility] HospitalRed Cell Distribution Gjmbw2878-84-57 18:13:00* Test Item Value Reference Range Interpretation Comments Red Cell Distribution Width (test code = 79726-8) 11.9 11.7 -14.4 [facility] HospitalPlatelet Egocy5143-32-31 18:13:00* Test Item Value Reference Range Interpretation Comments Platelet Count (test code = 777-3) 221 140-360 [facility] HospitalNeutrophils (%) (Auto)2017-03-31 18:13:00 * Test Item Value Reference Range Interpretation Comments Neutrophils (%) (Auto) (test code = 34286-6) 41.4 38.7-80.0 [facility] HospitalLymphocytes (%) (Auto)2017-03-31 18:13:00 * Test Item Value Reference Range Interpretation Comments Lymphocytes (%) (Auto) (test code = 736-9) 47.2 18.0-39.1 H [facility] HospitalMonocytes (%) (Auto)2017-03-31 18:13:00* Test Item Value Reference Range Interpretation Comments Monocytes (%) (Auto) (test code = 5905-5) 9.6 4.4-11.3 [facility] HospitalEosinophils (%) (Auto)2017-03-31 18:13:00 * Test Item Value Reference Range Interpretation Comments Eosinophils (%) (Auto) (test code = 713-8) 1.0 0.0-6.0 [facility] HospitalBasophils (%) (Auto)2017-03-31 18:13:00* Test Item Value Reference Range Interpretation Comments Basophils (%) (Auto) (test code = 706-2) 0.6 0.0-1.0 [facility] HospitalIM GRANULOCYTES %2017-03-31 18:13:00* Test Item Value Reference Range Interpretation Comments IM GRANULOCYTES % (test code = IM GRANULOCYTES %) 0.2 0.0- 1.0 [facility] HospitalNeutrophils # (Auto)2017-03-31 18:13:00* Test Item Value Reference Range Interpretation Comments Neutrophils # (Auto) (test code = 751-8) 2.0 2.1-6.9 L [facility] HospitalLymphocytes # (Auto)2017-03-31 18:13:00* Test Item Value Reference Range Interpretation Comments Lymphocytes # (Auto) (test code = 61986-7) 2.3 1.0-3.2 [facility] HospitalMonocytes # (Auto)2017-03-31 18:13:00* Test Item Value Reference Range Interpretation Comments Monocytes # (Auto) (test code = 742-7) 0.5 0.2-0.8 [facility] HospitalEosinophils # (Auto)2017-03-31 18:13:00* Test Item Value Reference Range Interpretation Comments Eosinophils # (Auto) (test code = 711-2) 0.1 0.0-0.4 [facility] HospitalBasophils # (Auto)2017-03-31 18:13:00* Test Item Value Reference Range Interpretation Comments Basophils # (Auto) (test code = 704-7) 0.0 0.0-0.1 [facility] [facility]ul[facility] (auto 2017-03-31 18:13:00* Test Item Value Reference Range Interpretation Comments Absolute Immature Granulocyte (auto (chiquita t code = Absolute Immature Granulocyte (auto) 0.01 0-0.1 [facility] [place] [address] Patient Name: YOLETTE URIBE MR #: [id number] : 1975 Age/Sex: 42/F Req #: [id number] Adm Physician: JUAN DUBOSE MD Ordered by: BEVERLY MARTELL CENTRAL OFFICE TROUBLE SHOOTER Report #: [id number] Location: [facility] Room/Bed: [place] [address] Procedure: [id number] CT/CT ABDOMEN/PELVIS W Exam Date: 03/16/18 Exam Time: 2310 REPORT STATUS: Signed EXAM: CT Abdomen and [...] on 03/17/18 0023 COPY TO: BEVERLY MARTELL [employer]ENTRAL OFFICE TROUBLE SHOOTER FOOT RIGHT [place] [address] Patient Name: YOLETTE URIBE MR #: [id number] : 1975 Age/Sex: 42/F Req #: [id number] Adm Physician: Ordered by: BEVERLY MARTELL CENTRAL OFFICE TROUBLE SHOOTER Report #: [id number] Location: ER Room/Bed: Procedure: [id number] DX/FOOT RIGHT COMPLETE Exam Kamari e: 01/17/18 [...] JEMAL on 01/17/182058 COPY TO: BEVERLY MARTELL CENTRAL OFFICE TROUBLE SHOOTER ANKLE 3 + VIEWS RIGHT [place] [address] Patient Name: YOLETTE URIBE MR #: [id number] : 1975 Age/Sex: 42/F Req #: [id number] Adm Physician: Ordered by: BEVERLY MARTELL CENTRAL OFFICE TROUBLE SHOOTER Report #: [id number] Location: ER Room/Bed: Procedure: [id number] DX/ANKLE 3 + VIEWS RIGHT Exam D [...] JEMAL on 01/17/182058 COPY TO: BEVERLY MARTELL CENTRAL OFFICE TROUBLE SHOOTER KNEE RIGHT THREE VIEWS [place] [address] Patient Name: YOLETTE URIBE MR #: [id number] : 1975 Age/Sex: 42/F Req #: [id number] [facility] Physician: Ordered by: BEVERLY MARTELL CENTRAL OFFICE TROUBLE SHOOTER Report #: [id number] Location: Room/Bed: Procedure: [id number] DX/KNEE RIGHT THREE VIEWS Exam Date: 01/17/18 [...] on 01/17/182058 COPY TO: BEVERLY MARTELL NP FOOT RIGHT AP LAT [place] [address] Patient Name: YOLETTE URIBE MR #: [id number] : 1975 Age/Sex: 42/F Req #: [id number] Adm Physician: Ordered by: BEVERLY MARTELL NP Report #: [id number] Location: ER Room/Bed: Procedure: [id number] DX/FOOT RIGHT AP LAT Exam Kamari e: 01/15/18 Exam Time: 1904 REPORT STATUS: Sign ed RIGHT FOOT - [...] on 01/15/181940 COPY TO: BEVERLY MARTELL NP ANKLE 3 + VIEWS RIGHT [place] [address] Patient Name: YOLETTE URIBE MR #: [id number] : 1975 Age/Sex: 42/F Req #: [id number] Adm Physician: Ordered by: BEVERLY MARTELL NP Report #: [id number] Location: ER Room/Bed: Procedure: [id number] DX/ANKLE 3 + VIEWS RIGHT Exam D [...] point tenderness. Signed by: Dr. Jose R Jones D.O., M.M.M. on 01/15/2018 7:41 PM Dictated By: JOSE R JONES DO 40 Tra nscribed By: JEMAL on 01/15/181940 COPY TO: BEVERLY MARTELL NP
--- NOTE | 2020-06-30 15:25 | Diagnostic Imaging Report ---
Exam: Right foot 3 views History: Fall, toe pain Comparison: Right foot 3 views 08/26/2015, right foot 3 views 01/17/2018, right foot 3 views 10/10/2019 Findings: No acute, displaced fracture or dislocation. Appropriate alignment between the medial cuneiform and second metatarsal base in keeping with an intact Lisfranc ligament. 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 Soft tissues are unremarkable. Impression: No acute osseous abnormality. Signed by: Dr. Flavio Mason M.D. on 06/30/2020 3:21 PM
[2020-06-30] MEDS ORDERED: ACETAMINOPHEN/CODEINE 300MG - 30MG TAB PO ONE (16:15)
[2020-06-30] MEDS ORDERED: MORPHINE SULFATE 2 MG/ML SYR 1ML IM PRN (17:00)
--- NOTE | 2020-06-30 17:14 | NUR ---
splint to right foot per patient request.
== END 2020-06-30 15:31 | disposition home or self-care (01) ==
LOC: ER 14:50
DX: M79.671 Pain in right foot (principal); S93.601A Unspecified sprain of right foot, initial encounter; W01.0XXA Fall on same level from slipping, tripping and stumbling without subsequent striking against object, initial encounter; Y92.89 Other specified places as the place of occurrence of the external cause; E11.9 Type 2 diabetes mellitus without complications; F41.9 Anxiety disorder, unspecified
CPT/HCPCS: 73630; 99283; J2270

== ENCOUNTER 2020-07-24 06:47 | Emergency (ER) | payer MEDICARE ==
[~2020-07-24] VITALS: Ht 152.4 cm; Wt 62.6 kg
[2020-07-24] MEDS ORDERED: KETOROLAC TROMETHAMINE 60 MG/2 ML VIAL IM ONE (07:00)
[2020-07-24] MEDS ORDERED: HYDROCODONE/APAP 10MG-325MG TAB PO ONE (07:00)
[2020-07-24] MEDS ORDERED: MORPHINE SULFATE INJ 4 MG/ML INJ 1ML IM STA (07:12)
--- OUTSIDE RECORDS SUMMARY | 2020-07-24 07:12 | XMS REPORT | Clinical Summary ---
Author Author [facility] Organization [facility] Address Unknown Phone Unavailable Care Team Providers Care Manager Of Organizational Development Name Role Phone Lilian Salas MINE TECHNICIAN PCP Allergies Comments Active Allergy Reactions Severity [...] Inadequately controlled diabetes mellitu s (Primary Dx) 2020 Telephonic Clinical Pharmacy Encounter Raúl Razo MD Diabetic autonomic neuropathy associated with type 2 diabetes mellitus; Insomnia, unspecified type 06/22/2020 Telephonic Psychiatry Encounter Kiana Marmolejo RPH Inadequately controlled diabetes [...] Zambrano RN Medications 04/18/2020 Refill Kiana Marmolejo RPH 04/04/2020 Telephonic Clinical Pharmacy Encounter Rena Segundo [...] disorder) 02/29/2020 Telephonic Psychology Encounter Kiana Marmolejo, [facility] Allyn Duong DO Inadequately controlled [...] Visit Litzy Vincent LVN 12/01/2019 Orders Only Family Practice Shivani Barragan MDD (major depressive disorder), recurre [...] of insulin 11/18/2019 Office Visit Family Practice Ena Stevens PA Encounter for medication refill (Primary Dx); Acute pain of left knee 11/10/2019 Office Visit [facility] Chapito Troy MD Medications 11/10/[address] [facility] Kiana Marmolejo, [facility] Shanita Oakley MD Inadequately controlled diabetes mellitu s (Primary Dx) 10/21/2019 Office Visit Clinical Pharmacy Shanita Oakley MD Medications 10/18/2019 Refill [facility] Shanita Oakley MD Cellulitis of back except buttock 08/30/2019 Ancillary Radiology Procedure Shanita Oakley MD Poorly controlled diabetes mellitus (Colleen litzy Dx); Herpes zoster without complication; Depression, unspecified depression type; Tinea corporis; Anxiety state; Cellulitis of back except buttock; Needs flu shot 08/30/[address] [facility] Shanita Oakley MD 08/30/2019 Orders Only [facility] Ena Stevens PA Herpes zoster without complication (Prim richie Dx); Encounter for diabetic foot exam 08/14/2019 Office Visit [facility] Shira Scanlon MD Annual physical exam (Primary Dx); Encounter for screening mammogram for breast cancer; Poorly controlled diabetes mellitus; Herpes zoster without complication; Depression, unspecified depression type 07/27/2019 Office Visit Family Practice after 07/24/2019 Immunizations Name Administration Dates Next Due Influenza Vaccine, 11/10/2019 (Deferred: [place] nation Refused) Seasonal, Injectable Influenza, Injectable, 11/18/2019 (Deferred: Richie nt already had this Quadrivalent immunization - Received at [facility]), 08/30/2019 (Deferred: Patient Refused) PPV [...] Travel Start No recent travel history available. Last Filed Vital Signs Reading Time Taken [...] Team Description Date Type Specialty Kiana Marmolejo, [facility] [address] [place] [address] [phone] 08/22/2020 Telephonic Clinical Pharmacy Encounter Raúl Razo MD [address] [facility] 2nd [address] [place] [address] [phone] 09/14/2020 Telephonic Psychiatry Encounter Health Maintenance Due [...] 11/23/2019 Breast cancer screening DIGITAL 2:35 PM SUPERVISOR TYPESETTING XRAY KNEE 4 OR MORE VIEWS Routine 11/23/2019 Acut e pain of left knee (TRAUMA - AP/LAT/B OBL) 11:52 AM SUPERVISOR TYPESETTING HEMOGLOBIN A1C Routine 10/21/2019 Inadequately co ntrolled 11:11 AM SUPERVISOR TYPESETTING diabetes mellitus ELECTROLYTES Routine 10/21/2019 Inadequately co ntrolled 11:11 AM SUPERVISOR TYPESETTING diabetes mellitus CREATININE Routine 10/21/2019 Inadequately co ntrolled 11:11 AM [employer]PERVISOR TYPESETTING diabetes mellitus ALANINE Routine 10/21/2019 Inadequately co ntrolled AMINOTRASFERASE/ASPARTATE 11:11 AM SUPERVISOR TYPESETTING diabetes me llitus AMINOTRANSFERASE (ALT/AST) XRAY SPINE THORACIC 2 Routine 08/30/2019 Cellulit is of back except VIEWS 2:43 PM SUPERVISOR TYPESETTING buttock DIABETIC FOOT EXAM Routine 08/14/2019 Encounter [...] Annual physical exam 12:01 PM CDT after 07/24/2019 Results * MAMMOGRAM BILAT SCREEN DIGITAL (11/23/2019 2:35 PM SUPERVISOR TYPESETTING) Specimen Impressions Performed At IMPRESSION: BENIGN SMS There is no mammographic evidence of ma lignancy. A 1 year screening mammogram is recommended. I have reviewed the study and agree wit h the findings in the report. This document has been electronically s igned. paresh Reese M.D., M.D./masood:11/23/2019 14:41:39 Paper Stacker: [facility] letter sent: Benign Exam Mammogram BI-RADS: 2 Benign G0202 z1 2.31 Narrative Performed At #[id number] - MAMMOGRAM BILAT SCREEN DIGITAL SMS BILATERAL [...] Interface, Rad/Mammog In - 11/23/2019 3:10 PM SUPERVISOR TYPESETTING #[id number] - MAMMOGRAM BILAT SCREEN DIGITAL BILATERAL DIGITAL [...] has been electronically signed. Katie Sanders M.D. ks,paresh/masood:11/23/2019 14:41:39 Paper Stacker: [facility] Benign Exam Mammogram BI-RADS: 2 Benign G0202 z12.31 Performing Organization Address [facility] one Number SMS * XRAY KNEE 4 OR MORE VIEWS (TRAUMA - AP/LAT/B OBL) (11/23/2019 11:52 AM SUPERVISOR TYPESETTING) Specimen Impressions Performed At IMPRESSION: SMS Mild [...] Interface, Rad/Mammog In - 11/23/2019 2:48 PM SUPERVISOR TYPESETTING Exam: Radiographs of the left knee History: Pain Comparison: None. DISCUSSION: No fracture or dislocation. Mild tricompartmental degenerative arthrosis. No osseous erosion. No abnormal soft tissue calcification or soft tissue defect. IMPRESSION IMPRESSION: Mild tricompartmental degenerative arthrosis. No osseous erosion. Signed By: Yazan Terrazas MD, 11/23/2019 2:43 PM Performing Organization Address [facility] one Number [facility] * Creatinine (10/21/2019 11:11 AM SUPERVISOR TYPESETTING) Creatinine 0.6 0.6 - 1.2 mg/dL [facility] GFR, Estimated >90 >=90 mL/min/1.73 m2 [facility] Specimen Blood Performing Organization Address [facility] one Number [facility] [address] [place] [address] * Hemoglobin A1C (10/21/2019 11:11 AM SUPERVISOR TYPESETTING) Only the most recent of 2 results within the time period is included. Hemoglobin A1c 14.5 (H) 4.3 - 6.1 % [facility] Estimated 369 (H) 70 - 110 mg/dL [facility] Average Glucose LABOR[facility]ORY Specimen Blood Performing Organization Address [facility] one Number [facility] [address] [place] [address] [phone] * Electrolytes (10/21/2019 11:11 AM SUPERVISOR TYPESETTING) Sodium 134 (L) 136 - 145 mmol/L [facility] Potassium 4.3 3.5 - 5.1 mmol/L [facility] Chloride 92 (L) 98 - 107 mmol/L [facility] CO2 30 21 - 31 mmol/L [facility] Anion Gap 12 5 - 16 mmol/L [facility] Specimen Blood Performing Organization Address [facility] one Number [facility] [address] [place] [address] * ALT/AST (10/21/2019 11:11 AM SUPERVISOR TYPESETTING) Pathologist [facility] ALT 14 7 - 52 U/L [facility] AST 12 (L) 13 - 39 U/L [facility] Specimen Blood Performing Organization Address [facility] one Number [facility] [address] [place] [address] * XRAY SPINE THORACIC 2 VIEWS (08/30/2019 2:43 PM SUPERVISOR TYPESETTING) Specimen Impressions Performed At IMPRESSION: SMS 1. [...] Interface, Rad/Mammog In - 08/30/2019 2:51 PM SUPERVISOR TYPESETTING EXAM: XRAY SPINE THORACIC 2 VIEWS - [...] F (: 1975 , ) presented to [facility] on 08-03-2019 for a retinal imaging study [...] electronically signed Skyler Jacob MD, , Taxonomy: [id number] on 08-03-2019 02:3 1:57 [facility] time. NOTE: Any pathology noted on this fidel betic retinal evaluation should be confirmed by an appropriate ophthalmic examination. Performing Organization Address [facility] one Number IRIS * POCT BMP POC docked device (07/27/2019 12:35 PM CDT) Sodium POC 137 136 - 145 mmol/L [facility] Potassium POC 3.7 3.5 - 5.1 mmol/L [facility] Chloride POC 96 (L) 98 - 107 mmol/L [facility] TCO2 POC 29 21 - 32 mmol/L [facility] Urea Nitrogen 5 (L) 7 - 18 mg/dL [facility] Creatinine POC 0.5 (L) 0.6 - 1.3 mg/dL [facility] Glucose POC 285 (H) 74 - 106 mg/dL [facility] Ionized Calcium 1.17 1.15 - 1.29 mmol/L [facility] GFR, Estimated >90 >=90 mL/min/1.73 m2 [facility] Specimen Blood, venous Performing Organization Address [facility] one Number [facility] [address] [place] [address] [facility] * Chlam/GC DNA Amplification (07/27/2019 12:23 PM CDT) Chlamydia Negative Negative [facility] trachomatis [facility] N. gonorrhoeae Negative Negative [facility] Specimen Urine - Voided, urine Narrative Performed At This test utilizes GeneExcel Aptima Combo 2 Assay for target amplification of rRNA [facility] for the qualitative detection of Chlamy fidel trachomatis and Neisseria gonorrhoeae. Performing Organization Address [facility] Ph one Number [facility] [address] [place] [address] * Urine Drug Screen (07/27/2019 12:23 PM [...] Urine - Voided, urine Performing Organization Address City/State[facility] one Number [facility] [address] [place] [address] * CBC/Diff (07/27/2019 12:01 PM CDT) Pathologist [facility] WBC 4.6 4.5 - 11.0 K/uL [facility] [...] (H) 0.24 - 0.36 K/uL [facility] red devil) [facility] Eos (Absolute) 0.04 0.04 - 0.36 K/uL [facility] Baso (Absolute) 0.03 0.01 - 0.08 K/uL [facility] Immature Grans 0.00 0.00 - 0.03 K/uL [facility] (Abs) [facility] Absolute NRBC 0.00 K/uL [facility] Specimen Blood - Arm, left Performing Organization Address [facility] one Number [facility] [address] [place], [place] [address] [phone] * Syphilis Screen for Infection (07/27/2019 12:01 PM CDT) TPA Negative Negative, Equivocal [facility] Final Report Negative Negative [facility] Specimen Blood Performing Organization Address [facility] one Number [facility] [address] [place] [address] [phone] * HIV-1/HIV-2 Routine Screening (07/27/2019 12:01 PM CDT) HIV Ag/Ab Combo Negative Negative [facility] Specimen Blood - Arm, left Performing Organization Address [facility] one Number [facility] [address] [place] [address] * POC BMP - In Lab (STAT) (07/27/2019 12:01 PM CDT) Hold Specimen Complete [facility] Specimen Blood Performing Organization Address [facility] Ph one Number [facility] [address] [place] [address] [facility] * TSH [Thyroid Stimulating Hormone] (07/27/2019 12:01 PM CDT) TSH 1.41 0.57 - 3.74 uIU/mL [facility] Comment: LABORATORY If , please see the following reference ranges (not verified by lab): 1st Trimester: 0.05 -3.70 uIU/mL 2nd Trimester: 0.31 -4.35 uIU/mL 3rd Trimester: 0.41 - 5.18 uIU/mL Specimen Blood - Arm, left Performing Organization Address [facility] one Number [facility] [address] [place] [address] * Liver Profile (07/27/2019 12:01 PM CDT) [...] Blood - Arm, left Performing Organization Address [facility] one Number [facility] [address] [place], [place] [id number] * Lipid Profile (07/27/2019 12:01 PM CDT) [...] Blood - Arm, left Performing Organization Address [facility]/Zipcode Ph one Number [facility] [address] [place] [address] [phone] * Hepatitis Panel (07/27/2019 12:01 PM CDT) Hepatitis C Negative Negative [facility] Virus (HCV) [facility] Antibody Hep B Surface Negative Negative [facility] Ag [facility] Hep A Vir Ab Negative Negative [facility] IgM [facility] Hep B Core Ab Negative Negative [facility] IgM [facility] Specimen Blood Performing Organization Address City/State/Zipcode Ph one Number [facility] [address] [place] [address] [phone] after 07/24/2019 Insurance Type Payer Benefit Subscriber ID Effective Phone Address Plan / Dates Group [employer] SELF-PAY SELF-PAY xxxxxxxxx 2020- [phone] [id number] [place] [address]
--- OUTSIDE RECORDS SUMMARY | 2020-07-24 07:13 | XMS REPORT | Continuity of Care Document ---
Author Author Latasha Owens YOLETTE MARRERO [employer] Address Unknown Phone Unavailable Care Team Providers Care City Driver Name Role Phone [employer] Information Exchange Unavailable Un available Problems Problem Status Onset Date Classification Date Reported Comments Source HAND PAIN Active 08/06/2013 [facility] Medications No Data Provided for This Section [...] [facility] Consultation Notes No Data Provided for This Section Discharge Summaries No Data Provided for This Section History and Physicals No Data Provided for This Section Vital Signs No Data Provided for This Section Encounters Location Location Details Encounter Type Encounter Number Reason For Visit Attending Provider ADM Date DC Date Status Source [facility] Emergency [id number] MANUEL GARCIA 08/06/2013 08/06/2013 Discharged [facility] Procedures No Data Provided for This Section [...]
--- OUTSIDE RECORDS SUMMARY | 2020-07-24 07:15 | XMS REPORT | Continuity of Care Document ---
Author Author [facility] t Organization [facility] Address [address] [place] [address] Phone Unavailable Care Team Providers Care Coal Hiker Name Role Phone NO, PCP PCP Unavailable Nohemy TURCIOS Attphys Unavailable DIEGO BEE Attphys Unavailable Prakash CARLOS Attphys Unavailable Maisha PIKE Attphys Unavailable ELIJAH [...] JACKSON Attphys Unavailable JAZLYN ARZATE Admphys Unavailable JUAN DUBOSE Admphys Unavailable Payers Payer Name Policy Type Policy Number Effective Date Expiration Date Prakash lopez [facility] [id number] UNSCREENEDxxxxxxxx [id number] [place] [address] xxxxxxxxx 2020 00:00:00 [facility] Medicare A & B [id number] [facility] Aarp Medicare Complete [id number] I [facility] Miscellaneous Hmo [id number] 2018 00:00:00 [facility] [employer] [id number] [facility] Problems Condition Name Condition Details Condition Category Status Onset Date Resolution Date Last Treatment Date Treating Clinician Comments Source Chronic pain of both knees Chronic pain of both knees Disease Active 2020-02-15 00:00:00 [facility] Pain in joint, ankle and foot Pain in joint, ankle and foot Disease Active 2020-02-15 00:00:00 Overview: Bilateral f oot pain [facility] Neuropathy of both feet Neuropathy of both feet Disease Active 2020-02-15 00:00:00 [facility] Diabetic neuropathy associated with type 1 diabetes me llitus Diabetic neuropathy associated with type 1 diabetes mellitus Disease Active 2020-02-15 00:00: 00 [facility] Dehydration fever Dehydration Problem Active 2015-05-14 00:00:00 [facility] Gastroenteritis Gastroenteritis Problem Active 2015-05-14 00:00:00 [facility] Reactive airway disease Reactive airway disease Problem Active 2015-05-14 00:00:00 [facility] Uncontrolled blood glucose Uncontrolled blood glucose Problem Active 2015-05-14 00:00:00 [facility] HAND PAIN HAND PAIN Active 08/06/[address] [facility] Diagnosis Active 2013-08-06 00:00:00 2013-08-06 14:53:00 [facility] Perirectal abscess Perirectal abscess Problem Active [facility] Abscess Abscess Problem Active [facility] Cellulitis Cellulitis Problem Active [facility] Herpes zoster Shingles Problem Active [facility] Hyperglycemia Problem Active [facility] Increased lactic acid level Problem Active [facility] Sprain of foot Problem Active [facility] Tinea corporis Tinea corporis Disease Active [facility] Arthritis Arthritis Disease Active [facility] Allergies, Adverse Reactions, Alerts Allergy Name Allergy Type Status Severity Reaction(s) Onset Date Inacti ve Date Treating Clinician Comments Source metformin DA Active 2020-02-21 00:00:00 [facility] Penicillins DA Active 2020-01-09 00:00:00 [facility] Sulfa (Sulfonamide Antibiotics) DA Active 2020-01-09 00 :00:00 [facility] ibuprofen DA Active 2020-01-09 00:00:00 [facility] metformin DA Active 2020-01-09 00:00:00 [facility] Sulfa (Sulfonamide Antibiotics) Allergy to substance Active Moder ate ITCH 2019-10-10 00:00:00 [facility] promethazine HCl Allergy to substance Active Mild ITCHING 2019-08-19 00:00:00 [facility] Metformin Allergy to substance Active Severe TONGUE SWELLING 2019-08-19 00:00:00 [facility] Metformin Propensity to adverse reactions to drug Active 2019-07-27 00:00:00 [facility] Sulfa (Sulfonamide Antibiotics) Propensity to adverse reactions to drug Active 2019-07-27 00:00:00 [facility] Penicillins DA Active 2019-07-23 00:00:00 [facility] Sulfa (Sulfonamide Antibiotics) DA Active SV 2019-07-23 00 :00:00 [facility] ibuprofen DA Active SV 2019-07-23 00:00:00 [facility] metformin DA Active SV 2019-07-23 00:00:00 [facility] Penicillins DA Active SV 2019-06-17 00:00:00 [facility] Sulfa (Sulfonamide Antibiotics) DA Active SV 2019-06-17 00 :00:00 [facility] ibuprofen DA Active SV 2019-06-17 00:00:00 [facility] metformin DA Active SV 2019-06-17 00:00:00 [facility] Penicillins DA Active SV 2018-03-15 00:00:00 [facility] Sulfa (Sulfonamide Antibiotics) DA Active SV 2018-03-15 00 :00:00 [facility] ibuprofen DA Active SV 2018-03-15 00:00:00 [facility] metformin DA Active SV 2018-03-15 00:00:00 [facility] Social History Social Habit Start Date Stop Date Quantity Comments Source Sex Assigned At [facility] Alcohol intake 2020-04-27 00:00:00 2020-04-27 00:00:00 Ex-drinker (fi nding) [facility] Food Worry 2019-07-27 00:00:00 2019-07-27 00:00:00 1 [facility] Food Scarcity 2019-07-27 00:00:00 2019-07-27 00:00:00 1 [facility] Smoking Status Start Date Stop Date Source Never smoker [facility] Medications Ordered Medication Name Filled Medication Name Start Date Stop Da te Current Medication? Ordering Clinician Indication Dosage Frequency Signature (SIG) Comments Components Source DULoxetine (CYMBALTA) 30 mg delayed release capsule 06-22 00:00:00 Yes Diabetic autonomic neuropathy associated with type 2 diabetes me llitus Take 2 capsules by mouth daily for 2 weeks, then take 3 capsules daily. [facility] hydrOXYzine (ATARAX) 25 mg tablet 2020-06-22 00:00:00 Yes Insomnia, unspecified type Take 1/2 to 1 tablet by mouth daily as needed for anxiety and take 1 to 2 tablets at bedtime as needed for sleep. [facility] naproxen (NAPROSYN) 500 mg tablet 2020-05-15 00:00:00 Yes Medication refill 500mg Take 1 tablet by mouth 2 times daily (with meal s). [facility] venlafaxine (EFFEXOR XR) 150 mg extended release capsule 2020-05-15 00:00:00 2020-06-22 00:00:00 No Medication refill 300mg QD Take 2 capsules by mouth daily. [facility] DULoxetine (CYMBALTA) 30 mg delayed release capsule 2020-05-15 00:00:00 2020-06-22 00:00:00 No Diabetic autonomic n europathy associated with type 2 diabetes mellitus 30mg QD Take 1 capsule by mouth daily. [facility] hydrOXYzine (ATARAX) 25 mg tablet 2020-05-15 00:00:00 2019 00:00:00 No Insomnia, unspecified type Take 1/2 to 1 tablet by mouth daily as needed for anxiety and take 1 to 2 tablets at bedtime as needed for sleep. [facility] empagliflozin (JARDIANCE) 10 mg tablet 2020-05-08 00:00:00 Yes Inadequately controlled diabetes mellitus 10mg Take 1 tablet by mouth every morning. [facility] pen needle, diabetic 31 gauge x 3/16" needles 2020-05-08 00: 00:00 Yes Poorly controlled diabetes mellitus Inject under the s kin 5 times daily. [facility] blood glucose test strips 2020-05-08 00:00:00 Yes Poorly controlled diabetes mellitus 3 times daily to test blood sugar. [facility] ketorolac (TORADOL) injection 60 mg 2020-04-27 12:15:0 0 2020-04-27 12:30:00 No Left elbow pain 60mg [facility] ea ibuprofen (MOTRIN) 800 mg tablet 2020-04-24 00:00:00 Yes Acute pain of left knee 800mg Take 1 tablet by mouth every 8 hours as needed for Pain. [facility] Cyclobenzaprine (FLEXERIL) 5 mg tablet 2020-04-12 3 00:00:00 2021-04-24 23:59:00 No Acute pain of left knee 5mg T reynold 1 tablet by mouth nightly at bedtime as needed for Muscle Spasms. [facility] mirtazapine (REMERON) 15 mg tablet 2020-04-20 00:00: 00:00:00 No Moderate episode of recurrent major depressive disorder 15mg Take 1 tablet by mouth at bedtime nightly. [facility] venlafaxine (EFFEXOR XR) 150 mg extended release capsule 2020-04-20 00:00:2020-05-15 00:00:00 No Depression, unspecified depression typ e 300mg QD Take 2 capsules by mouth daily. [facility] hydrOXYzine (ATARAX) 25 mg tablet 2020-04-20 00:00:2019 00:00:00 No PTSD (post-traumatic stress disorder) Take 1/2 to 1 tablet by mouth daily as needed for anxiety and take 1 to 2 tablets at bedtime as needed for sleep. [facility] Cyclobenzaprine (FLEXERIL) 5 mg tablet 7 00:00:00 2020-04-24 00:00:00 No Acute pain of left knee 5mg T reynold 1 tablet by mouth nightly at bedtime as needed for Muscle Spasms. [facility] ibuprofen (MOTRIN) 800 mg tablet 2020-03-14 00:00:00 2020-04 00:00:00 No Acute pain of left knee 800mg Take 1 tablet by mouth every 8 hours as needed for Pain. [facility] Cyclobenzaprine (FLEXERIL) 5 mg tablet 2 00:00:00 2020-04-18 00:00:00 No Acute pain of left knee 5mg T reynold 1 tablet by mouth nightly at bedtime as needed for Muscle Spasms. [facility] ibuprofen (MOTRIN) 800 mg tablet 2020-03-14 00:00:00 2020-03 00:00:00 No Acute pain of left knee 800mg Take 1 tablet by mouth every 8 hours as needed for Pain. [facility] empagliflozin (JARDIANCE) 10 mg tablet 2020-02-11 8 00:00:00 2020-05-08 00:00:00 No Inadequately controlled diabetes mellitus 10mg Take 1 tablet by mouth every morning. [facility] venlafaxine (EFFEXOR XR) 150 mg extended release capsule 2020-02-28 00:00:00 2020-04-20 00:00:00 No Depression, unspecified depression typ e 300mg QD Take 2 capsules by mouth daily. [facility] gabapentin (NEURONTIN) 300 mg capsule 2020-02-15 00:00 :00 2020-05-15 00:00:00 No Diabetic autonomic neuropathy associated with type 1 diabetes mellitus 300mg Take 1 capsule by mouth 4 ti mes daily 1 capsule at 8:30am and 1 capsule at 2pm and 2 capsules at 8pm. [facility] naproxen (NAPROSYN) 500 mg tablet 2020-02-15 00:00:00 2019 00:00:00 No Chronic pain of both knees 500mg Take 1 tablet by mouth 2 times daily (with meals). [facility] hydrOXYzine (ATARAX) 25 mg tablet 2020-02-03 00:00:00 2019 00:00:00 No PTSD (post-traumatic stress disorder) Take 1/2 to 1 tablet by mouth daily as needed for anxiety and take 1 to 2 tablets at bedtime as needed for sleep. [facility] escitalopram (LEXAPRO) 10 mg tablet 2020-02-03 00:00:0 0 2020-02-28 00:00:00 No PTSD (post-traumatic stress disorder) Take 1/2 tablet by mouth daily for 2 weeks, then take 1 tablet daily. [facility] insulin aspart U-100 (NOVOLOG FLEXPEN) 100 unit/mL (3 mL) pe n 2020-02-02 00:00:00 Yes Poorly controlled diabetes mellitus 15U Inject 15 Units under the skin 3 times daily do not skip meals. [facility] insulin detemir U-100 (LEVEMIR FLEXTOUCH) 100 unit/mL (3 mL) Pen 2020-02-02 00:00:00 Yes Poorly controlled diabetes mellitus 35U Q.5D Inject 35 Units under the skin 2 times daily. [facility] linaGLIPtin (TRADJENTA) 5 mg tablet 2020-02-02 00:00:00 Yes Poorly controlled diabetes mellitus 5mg QD Take 1 tablet by mouth daily. [facility] pen needle, diabetic 31 gauge x 3/16" needles 20 30-01-22 00:00:00 2020-05-08 00:00:00 No Poorly controlled diabetes mellitus Inject under the skin 5 times daily. [facility] gabapentin (NEURONTIN) 300 mg capsule 2019-12-11 00:00 :00 2019-12-21 23:59:00 No Chronic pain of both knees 300mg T reynold 1 capsule by mouth 3 times daily for 10 days. [facility] naproxen (NAPROSYN) 500 mg tablet 2019-12-11 00:00:00 2019 23:59:00 No Chronic pain of both knees 500mg Take 1 tablet by mouth 2 times daily (with meals) for 10 days. [facility] clotrimazole 1 % Oint 2019-12-11 00:00:00 2019-12-21 23:59:0 0 No Tinea corporis Apply to affected area 3 times daily for 10 day s. [facility] acetaminophen-codeine (TYLENOL/CODEINE #3) 300-30 mg per tab let 2019-11-18 00:00:00 Yes Acute pain of left knee 1{tbl} Take 1 tablet by mouth every 12 hours as needed for Pain. [facility] th ibuprofen (MOTRIN) 600 mg tablet 2019-11-18 00:00:00 2020-03 00:00:00 No Acute pain of left knee 600mg Take 1 tablet by mouth every 8 hours as needed for Pain. [facility] busPIRone (BUSPAR) 10 mg tablet 2019-11-18 00:00:00 00:00:00 No Depression, unspecified depression type 10mg Take 1 tablet by mouth 3 times daily. [facility] venlafaxine (EFFEXOR XR) 150 mg extended release capsule 2019-11-18 00:00:00 2020-02-03 00:00:00 No Depression, unspecified depression typ e 300mg QD Take 2 capsules by mouth daily. [facility] naproxen (NAPROSYN) 500 mg tablet 2019-11-10 00:00:00 2019 11:32:05 No Acute pain of left knee 500mg Take 1 t ablet by mouth 2 times daily (with meals). [facility] gabapentin (NEURONTIN) 300 mg capsule 2019-11-10 00:00 :00 2019-12-11 00:00:00 No Encounter for medication refill 300mg Take 1 capsule by mouth 3 times daily [facility] blood glucose meter 2019-08-30 00:00:00 Yes Poorly controlled diabetes mellitus Use as directed.. [facility] lancets 28 gauge 2019-08-30 00:00:00 Yes Poorly controlled diabetes mellitus by MISCELLANEOUS route 3 times daily [facility] ketoconazole (NIZORAL) 2 % topical cream 2019-08-30 00:00:00 Yes Tinea corporis Q.5D Apply to affected area 2 times daily. [facility] blood glucose test strips 2019-08-30 00:00:00 2020-05-08 00: 00:00 No Poorly controlled diabetes mellitus 2 times weekly to test blood sugar. [facility] venlafaxine (EFFEXOR XR) 150 mg extended release capsule 2019-08-30 00:00:00 2020-02-03 00:00:00 No Depression, unspecified depression typ e 150mg QD Take 1 capsule by mouth daily. [facility] insulin detemir U-100 (LEVEMIR FLEXTOUCH) 100 unit/mL (3 mL) Pen 2019-08-30 00:00:00 2020-02-02 00:00:00 No Poorly controlled diabetes low litus 35U Q.5D Inject 35 Units under the skin 2 times daily. [facility] insulin aspart U-100 (NOVOLOG FLEXPEN) 100 unit/mL (3 mL) pe n 2019-08-30 00:00:00 2020-02-02 00:00:00 No Poorly controlled diabetes low litus 10U Inject 10 Units under the skin 3 times daily donot skip meals. [facility] linaGLIPtin (TRADJENTA) 5 mg tablet 2019-08-30 00:00:0 0 2020-02-02 00:00:00 No Poorly controlled diabetes mellitus 5mg QD Take 1 table t by mouth daily. [facility] acetaminophen-codeine (TYLENOL/CODEINE #3) 300-30 mg per tab let 2019-08-30 00:00:00 2019-11-18 00:00:00 No Herpes zoster without complica tion 1{tbl} Take 1 tablet by mouth every 12 hours as needed for Pain. [facility] busPIRone (BUSPAR) 10 mg tablet 2019-08-30 00:00:00 00:00:00 No Depression, unspecified depression type 10mg Take 1 tablet by mouth 3 times daily. [facility] clindamycin (CLEOCIN HCL) 300 mg capsule 2019-08 00:00:00 2019-09-09 23:59:00 No Cellulitis of back except buttock 300mg Take 1 capsule by mouth 3 times daily for 10 days. [facility] venlafaxine (EFFEXOR XR) 75 mg extended release capsule 2019-08-30 00:00:00 2019-08-30 00:00:00 No Depression, unspecified depression typ e 75mg QD Take 1 capsule by mouth daily. [facility] Rifampin Rifampin 2019-08-22 08:16:00 Yes 300 Twice A Day [facility] Sulfamethoxazole/Trimethoprim (Bactrim Ds Tablet) 1 Ea ch TABLET Sulfamethoxazole/Trimethoprim (Bactrim Ds Tablet) 1 Each TABLET 2019-08-22 08:16:00 Yes 1 Twice A Day [facility] Insulin Npl/Insulin Lispro (Humalog Mix 75-25 Kwikpen) 100 Unit/1 Ml INSULN.PEN Insulin Npl/Insulin Lispro (Humalog Mix 75-25 Kwikpen) 100 Unit/1 Ml INSULN.PEN 2019-08-22 06:54:00 Yes 40 Twice A Day [facility] Gabapentin Gabapentin 2019-08-22 06:51:00 Yes 600 Thr ee Times A Day [facility] Prednisone Prednisone 2019-08-22 06:51:00 Yes 10 Thr ee Times A Day [facility] Tramadol/Apap 37.5MG-325MG Tramadol/Apap 37.5MG-325MG 2019-08-22 06:5 1:00 Yes 1 Every 6 Hours as needed for Shingles Boom n [facility] gabapentin (NEURONTIN) 600 mg tablet 2019-08-14 00:00: 00 2019-09-15 23:59:00 No Herpes zoster without complication 600mg Take 1 tablet by mouth 3 times daily for 30 days. [facility] acetaminophen-codeine (TYLENOL/CODEINE #3) 300-30 mg per tab let 2019-08-14 00:00:00 2019-08-30 00:00:00 No Herpes zoster without complica tion 1{tbl} Take 1 tablet by mouth every 4 hours as needed for Pain. [facility] pen needle, diabetic 31 gauge x 3/16" needles 2019-07-27 00: 00:00 Yes Poorly controlled diabetes mellitus Inject under the s kin 3 times daily. [facility] blood glucose meter 2019-07-27 00:00:00 Yes Poorly controlled diabetes mellitus Use as directed.. [facility] blood glucose test strips 2019-07-27 00:00:00 Yes Poorly controlled diabetes mellitus 3 times daily. [facility] lancets 28 gauge 2019-07-27 00:00:00 Yes Poorly controlled diabetes mellitus Check blood sugar three times daily and as need ed. [facility] pen needle, diabetic 31 gauge x 3/16" needles 20 31-07-15 00:00:00 2020-02-02 00:00:00 No Poorly controlled diabetes mellitus Q.5D Inject under the skin 2 times daily. [facility] tropicamide (MYDRIACYL) 0.5 % ophthalmic solution 2019-07-27 00:00:00 2020-01-23 23:59:00 No Poorly controlled diabetes mellitus 1[ drp] Instill 1 Drop in each eye once as needed for up to 1 dose (for poor retina scan image). [facility] insulin aspart U-100 (NOVOLOG FLEXPEN) 100 unit/mL (3 mL) pe n 2019-07-27 00:00:00 2019-08-30 00:00:00 No Poorly controlled diabetes low litus 5U Inject 5 Units under the skin 3 times daily donot skip meals. [facility] venlafaxine (EFFEXOR XR) 75 mg extended release capsule 2019-07-27 00:00:00 2019-08-30 00:00:00 No Depression, unspecified depression typ e 75mg QD Take 1 capsule by mouth daily. [facility] insulin detemir U-100 (LEVEMIR FLEXTOUCH) 100 unit/mL (3 mL) Pen 2019-07-27 00:00:00 2019-08-30 00:00:00 No Poorly controlled diabetes low litus 35U Q.5D Inject 35 Units under the skin 2 times daily. 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 [facility] valACYclovir (VALTREX) 1 g tablet 2019-07-27 00:00:00 2018 23:59:00 No Herpes zoster without complication 1000mg Take 1 tablet by mouth 3 times daily for 10 days. [facility] insulin detemir U-100 (LEVEMIR FLEXTOUCH) 100 unit/mL (3 mL) Pen 2019-07-27 00:00:00 2019-07-27 00:00:00 No Poorly controlled diabetes low litus 20U Q.5D Inject 20 Units under the skin 2 times daily. [facility] insulin detemir U-100 (LEVEMIR FLEXTOUCH) 100 unit/mL (3 mL) Pen 2019-07-27 00:00:00 2019-07-27 00:00:00 No Poorly controlled diabetes low litus 35U Q.5D Inject 35 Units under the skin 2 times daily. [facility] gabapentin (NEURONTIN) 300 mg capsule 2019-07-27 00:00 :00 2019-07-27 00:00:00 No Herpes zoster without complication 300mg Take 1 capsule by mouth 3 times daily. [facility] Oseltamivir Phosphate (Tamiflu) 75 Mg CAP Oseltamivir Phosphate (Tamiflu) 75 Mg CAP 2018-09-19 09:19:00 2019-08-22 00:00:00 No 75 Twic e A Day [facility] Azithromycin (Zithromax) 250 Mg TABLET Azithromycin (Zithrom ax) 250 Mg TABLET 2018-09-19 09:07:00 2019-08-22 00:00:00 No 250 Daily [facility] Acetaminophen With Codeine (Tylenol With Codeine #3 Ta blet) 1 Each TABLET Acetaminophen With Codeine (Tylenol With Codeine #3 Tablet) 1 Each TABLET 2018-03-19 08:09:00 2019-08-22 00:00:00 No 300 Every 8 Hours as needed for Prn [facility] Ciprofloxacin Hcl (Cipro) 500 Mg TABLET Ciprofloxacin Hcl (C ipro) 500 Mg TABLET 2018-03-19 08:06:00 2019-08-22 00:00:00 No 500 Every 12 Hours [facility] Minocycline Hcl Minocycline Hcl 2018-03-19 08:06:00 2019-08-22 00:00:00 No 100 Twice A Day [facility] Doxycycline Hyclate Doxycycline Hyclate 2015-02-08 06:09:00 2015-12 00:00:00 No 100 Every 12 Hours [facility] Lrt10 Lrt10 2015-02-08 06:09:00 2016-01-02 00:00:00 No 10 Daily [facility] Prednisone Prednisone 2015-02-08 06:09:00 2016-01-02 00:00:00 No 20 Every 12 Hours [facility] Famotidine (Pepcid) 20 Mg TABLET Famotidine (Pepcid) 20 Mg T ABLET 2015-02-08 06:09:00 2015-08-28 00:00:00 No 20 Twice A Day [facility] Lisinopril Lisinopril Yes 10 Daily [facility] Venlafaxine Hcl (Effexor Xr 37.5MG Capcr*) 37.5 Mg CAP CR Venlafaxine Hcl (Effexor Xr 37.5MG Capcr*) 37.5 Mg CAPCR Yes 150 for Depression [facility] Zolpidem Tartrate (Ambien) 5 Mg TABLET Zolpidem Tartrate (Ambien ) 5 Mg TABLET Yes 5 Bedtime as needed for Insomnia [facility] Citalopram Hydrobromide (Celexa) 40 Mg TABLET Citalopr am Hydrobromide (Celexa) 40 Mg TABLET 2018-03-19 00:00:00 No 50 Daily [facility] Blood Pressure Pill Blood Pressure Pill 2017-03-31 00:00:00 No [facility] Bydron Bydron 2017-02-20 00:00:00 No [facility] Trigenta Trigenta 2017-02-20 00:00:00 No 1 Daily [facility] Azithromycin (Z-Nicholas) 250 Mg TABLET Azithromycin (Z-Nicholas) 250 Mg T ABLET 2017-01-03 00:00:00 No 250 Daily [facility] Exenatide Microspheres (Bydureon) 2 Mg VIAL Exenatide Microspheres (Bydureon) 2 Mg VIAL 2017-01-03 00:00:00 No 1 Qweekly [facility] Ondansetron (Zofran Odt) 4 Mg TAB.RAPDIS Ondansetron ( Zofran Odt) 4 Mg TAB.RAPDIS 2017-01-03 00:00:00 No 4 Every 6 Hours [facility] Sertraline Hcl (Zoloft) 100 Mg TABLET Sertraline Hcl (Zoloft) 10 0 Mg TABLET 2017-01-03 00:00:00 No 100 Daily [facility] Doxycycline Hyclate Doxycycline Hyclate 2016-07-23 00:00:00 No 100 Every 12 Hours [facility] Acetaminophen With Codeine (Tylenol With Codeine #3 Ta blet) 1 Each TABLET Acetaminophen With Codeine (Tylenol With Codeine #3 Tablet) 1 Each TABLET 2016-01-19 00:00:00 No 300 Every 6 Hours [facility] Cephalexin Monohydrate (Keflex) 500 Mg CAPSULE Cephale antonino Monohydrate (Keflex) 500 Mg CAPSULE 2016-01-19 00:00:00 No 500 Three Dewayne es A Day [facility] Albuterol Sulfate Albuterol Sulfate 2016-01-02 00:00:00 No 1 Every 4 Hours as needed for Shortness Of Breath [facility] Insulin Detemir (Levemir) 100 Unit/1 Ml VIAL Insulin D etemir (Levemir) 100 Unit/1 Ml VIAL 2016-01-02 00:00:00 No 44 Daily [facility] Insulin Human Lispro (Humalog) 100 Units/Ml ML Insulin Human Lispro (Humalog) 100 Units/Ml ML 2016-01-02 00:00:00 No Daily [facility] Albuterol Sulf (Albuterol Sulfate) 4 Mg TAB Albuterol Sulf (Albuterol Sulfate) 4 Mg TAB 2014-10-10 00:00:00 No 4 Twice A Day [facility] Albuterol Sulfate (Ventolin Hfa) 18 Gm HFA.AER.AD Albu terol Sulfate (Ventolin Hfa) 18 Gm HFA.AER.AD 2014-10-10 00:00:00 No Ev rosana 4 Hours [facility] Levofloxacin (Levaquin) 500 Mg TABLET Levofloxacin (Levaquin) 50 0 Mg TABLET 2014-10-06 00:00:00 No 500 Daily [facility] Estradiol Estradiol 2014-06-05 00:00:00 No .5 Daily [facility] [facility] Atorvastatin Calcium Atorvastatin Calcium 2014-05-04 00:00:00 No 10 Daily [facility] Glimepiride Glimepiride 2014-05-04 00:00:00 No 4 D aily [facility] Lamotrigine (Lamictal) 25 Mg TAB Lamotrigine (Lamictal) 25 Mg TA B 2014-05-04 00:00:00 No 25 Daily [facility] Pioglitazone Hcl (Actos) 30 Mg TABLET Pioglitazone Hcl (Actos) 3 0 Mg TABLET 2014-05-04 00:00:00 No 30 Daily [facility] Sertraline Hcl (Zoloft) 100 Mg TABLET Sertraline Hcl (Zoloft) 10 0 Mg TABLET 2014-05-04 00:00:00 No 100 Daily [facility] Vital Signs Vital Name Observation Time Observation Value Comments Source Weight 2020-06-30 14:34:00 138 [lb_av] [facility] BMI (Body Mass Index) 2020-06-30 14:34:00 27.0 kg/m2 [facility] Weight 2020-06-13 14:20:00 138 [lb_av] [facility] BMI (Body Mass Index) 2020-06-13 14:20:00 27.0 kg/m2 [facility] Systolic blood pressure 2020-04-27 11:53:00 128 mm[Hg] [facility] Diastolic blood pressure 2020-04-27 11:53:00 91 mm[Hg] [facility] Heart rate 2020-04-27 11:53:00 113 /min [facility] Body temperature 2020-04-27 11:53:00 36.89 Nanda Gabriela is [facility] Respiratory rate 2020-04-27 11:53:00 16 /min Gabriela is [facility] Body height 2020-04-27 11:53:00 157.5 cm [facility] Body weight 2020-04-27 11:53:00 66.951 kg [facility] BMI 2020-04-27 11:53:00 27.00 kg/m2 [facility] Oxygen saturation in Arterial blood by Pulse oximetry 04-27 11:53:00 99 /min [facility] Body Temperature 2019-08-22 06:42:00 96.3 [degF] [facility] Procedures Procedure Date / Time Performed Performing Clinician [facility] e Computed tomography of brain without radiopaque contrast 2020-06 00:00:00 [facility] DRAINAGE OF SKIN ABSCESS 2020-01-11 00:00:00 [facility] MAMMOGRAM BILAT SCREEN DIGITAL 2019-11-23 14:35:22 [facility] 4 OR MORE VIEWS (TRAUMA - AP/LAT/B OBL) 2019-11-23 11:52:16 [facility] ALANINE AMINOTRASFERASE/ASPARTATE AMINOTRANSFERASE (AL T/AST) 2019-10-21 11:11:00 GladysKiana [facility] CREATININE 2019-10-21 11:11:00 Kiana Bee [facility] ealth ELECTROLYTES 2019-10-21 11:11:00 Kiana Bee Diego [facility] HEMOGLOBIN A1C 2019-10-21 11:11:00 Gladys Kiana Diego [facility] XRAY SPINE THORACIC 2 VIEWS 2019-08-30 14:43:02 Cele [facility] DIABETIC FOOT EXAM 2019-08-14 11:47:47 Ena Stevens [facility] OPHTHALMOLOGY RETINAL SCAN 2019-08-03 09:20:03 Shira Scanlon [facility] BMP POC 2019-07-27 12:35:00 [facility] 2019-07-27 12:23:00 Shira Scanlon [facility] alth CHLAM/GC DNA AMPLI 2019-07-27 12:23:00 Shira Scanlon [facility] ealt CBC/DIFF 2019-07-27 12:01:00 Shira Scanlon [facility] THYROID STIMULATING HORMONE (TSH) 2019-07-27 12:01[facility] 2019-07-27 12:01:00 [facility] HIV AG/AB COMBO ROUTINE SCREENING 2019-07-27 12:01:[facility] 2019-07-27 12:01:00 Shira Scanlon [facility] HEPATITIS PANEL 2019-07-27 12:01:00 Shira Scanlon [facility] SYPHILIS SCREEN FOR INFECTION 2019-07-27 12:01:00 Hector Scanlon [facility] CBC 2019-07-27 12:01:00 Shira Scanlon [facility] HEMOGLOBIN A1C 2019-07-27 12:01:00 Shira Scanlon [facility] POC BMP - IN LAB (STAT) 2019-07-27 12:01:00 Shira Scanlon [facility] Plan of Care Planned Activity Planned Date Details Comments Source Future Scheduled Test 2020-11-23 00:00:00 Breast Cancer Scrn (Yearly) [code = Breast Cancer Scrn (Yearly)] [facility] Scheduled Test 2020-10-21 00:00:00 Hemoglobin A1c pancho surement (procedure) [code = 44696976] [facility] Scheduled Test 2020-08-14 00:00:00 DM Foot Exam (Year ly) [code = DM Foot Exam (Yearly)] [facility] Scheduled Test 2020-08-03 00:00:00 DM Retinal Exam (Y early) [code = DM Retinal Exam (Yearly)] [facility] Scheduled Test 2020-07-13 00:00:00 IMM Influenza Seas onal Jul to December (>/= 19 yrs) [code = IMM Influenza Seasonal Jul to December (>/= 19 yrs)] [facility] Scheduled Test 1993 00:00:00 Urine screening fo r protein (procedure) [code = 126646813] [facility] Instructions [facility] En[facility] Start Date/Time End Date/Time Encounter Type Admission Type Attendi [facility] Care Department Encounter ID Source 2020-09-14 00:00:00 2020-09-14 00:00:00 Outpatient Xavier TURCIOS [facility] [id number] [facility] 2020-08-22 00:00:00 2020-08-22 00:00:00 Outpatient LILY BEE [facility] [id number] [facility] 2020 07:02:53 2020 15:08:05 Outpatient LILY BEE [facility] [id number] [facility] 2020-07-10 00:00:00 2020-07-10 00:00:00 Outpatient LILY BEE [facility] [id number] [facility] 2020-06-30 14:50:00 2020-06-30 14:50:00 Registered Emergency Room 1 CROW CARLOS [facility] [id number] [facility] 2020-06-22 07:32:40 2020-06-22 08:38:12 Outpatient Xavier TURCIOS [facility] [id number] [facility] 2020-06-20 00:00:00 2020-06-20 00:00:00 Outpatient LILY BEE [facility] [id number] [facility] 2020-06-13 14:09:00 2020-06-13 19:23:00 Departed Emergency Room 1 CHEIKH PIKE [facility] [id number] [facility] 2020-06-13 00:00:00 2020-06-13 00:00:00 Outpatient [facility] [id number] [facility] 2020-06-05 07:38:25 2020-06-05 15:26:27 Outpatient LILY BEE [facility] [id number] [facility] 2020-05-29 00:00:00 2020-05-29 00:00:00 Outpatient [facility] [id number] [facility] 2020-05-15 07:46:15 2020-05-15 16:55:04 Outpatient ELIJAH YUN [facility] [id number] [facility] 2020-05-08 07:32:52 2020-05-08 07:32:52 Outpatient [facility] [id number] [facility] 2020-04-27 11:53:27 2020-04-27 11:53:27 Outpatient [facility] [id number] [facility] 2020-04-24 07:16:47 2020-04-24 07:16:47 Outpatient [facility] [id number] [facility] 2020-04-20 07:31:57 2020-04-20 07:31:57 Outpatient [facility] [id number] [facility] 2020-04-13 00:00:00 2020-04-13 00:00:00 Outpatient [facility] [id number] [facility] 2020-04-04 07:37:01 2020-04-04 07:37:01 Outpatient [facility] [id number] [facility] 2020-03-27 00:00:00 2020-03-27 00:00:00 Outpatient [facility] [id number] [facility] 2020-03-22 11:54:50 2020-03-22 11:54:50 Outpatient [facility] [id number] [facility] 2020-03-21 00:00:00 2020-03-21 00:00:00 Outpatient [facility] [id number] [facility] 2020-03-16 00:00:00 2020-03-16 00:00:00 Outpatient [facility] [id number] [facility] 2020-03-14 09:49:41 2020-03-14 09:49:41 Outpatient [facility] [id number] [facility] 2020-02-29 07:32:58 2020-02-29 07:32:58 Outpatient [facility] [id number] [facility] 2020-02-28 07:31:35 2020-02-28 07:31:35 Outpatient [facility] [id number] [facility] 2020-02-16 00:00:00 2020-02-16 00:00:00 Outpatient [facility] [id number] [facility] 2020-02-15 13:24:30 2020-02-15 13:24:30 Outpatient [facility] [id number] [facility] 2020-02-11 00:00:00 2020-02-11 00:00:00 Outpatient [facility] [id number] [facility] 2020-02-09 07:35:10 2020-02-09 07:35:10 Outpatient [facility] [id number] [facility] 2020-02-03 07:28:39 2020-02-03 07:28:39 Outpatient [facility] [id number] [facility] 2020-02-02 09:56:59 2020-02-02 09:56:59 Outpatient [facility] [id number] [facility] 2020-01-11 13:05:00 2020-01-11 15:29:00 Departed Emergency Room 1 GAUTAM ISABEL [facility] [id number] [facility] 2019-12-31 10:09:00 2019-12-31 16:13:00 Departed Emergency Room 1 ROSARIO LEMON [facility] [id number] [facility] 2019-12-28 00:00:00 2019-12-28 00:00:00 Outpatient [facility] [id number] [facility] 2019-12-16 00:00:00 2019-12-16 00:00:00 Outpatient [facility] [id number] [facility] 2019-12-14 00:00:00 2019-12-14 00:00:00 Outpatient [facility] [id number] [facility] 2019-12-11 09:47:37 2019-12-11 09:47:37 Emergency [facility] [id number] [facility] 2019-12-07 15:18:05 2019-12-07 15:18:05 Outpatient [facility] [id number] [facility] 2019-11-30 12:39:58 2019-11-30 12:39:58 Outpatient [facility] [id number] [facility] 2019-11-24 00:00:00 2019-11-24 00:00:00 Outpatient [facility] [id number] [facility] 2019-11-23 13:37:58 2019-11-23 13:37:58 Outpatient [facility] [id number] [facility] 2019-11-23 11:41:15 2019-11-23 11:41:15 Outpatient [facility] [id number] [facility] 2019-11-18 13:30:14 2019-11-18 13:30:14 Outpatient [facility] [id number] [facility] 2019-11-18 00:00:00 2019-11-18 00:00:00 Outpatient [facility] [id number] [facility] 2019-11-18 00:00:00 2019-11-18 00:00:00 Outpatient [facility] [id number] [facility] 2019-11-15 16:56:00 2019-11-15 17:42:00 Departed Emergency Room [facility] [id number] [facility] 2019-11-10 11:41:51 2019-11-10 11:41:51 Outpatient [facility] [id number] [facility] 2019-10-25 00:00:00 2019-10-25 00:00:00 Outpatient [facility] [id number] [facility] 2019-10-21 11:08:32 2019-10-21 11:08:32 Outpatient [facility] [id number] [facility] 2019-10-21 10:21:40 2019-10-21 10:21:40 Outpatient [facility] [id number] [facility] 2019-10-21 00:00:00 2019-10-21 00:00:00 Outpatient [facility] [id number] [facility] 2019-10-19 00:00:00 2019-10-19 00:00:00 Outpatient [facility] [id number] [facility] 2019-10-10 07:50:00 2019-10-10 10:50:00 Departed Emergency Room 1 CHEIKH PIKE [facility] [id number] [facility] 2019-09-30 00:00:00 2019-09-30 00:00:00 Outpatient [facility] [id number] [facility] 2019-09-08 00:00:00 2019-09-08 00:00:00 Outpatient [facility] [id number] [facility] 2019-09-08 00:00:00 2019-09-08 00:00:00 Outpatient [facility] [id number] [facility] 2019-08-30 14:33:16 2019-08-30 14:33:16 Outpatient [facility] [id number] [facility] 2019-08-30 12:56:42 2019-08-30 12:56:42 Outpatient [facility] [id number] [facility] 2019-08-19 13:41:00 2019-08-22 09:54:00 Discharged Inpatient 1 JAZLYN ARZATE [facility] [id number] [facility] 2019-08-19 00:00:00 2019-08-19 00:00:00 Outpatient [facility] [id number] [facility] 2019-08-16 19:21:00 2019-08-17 03:00:00 Departed Emergency Room [facility] [id number] [facility] 2019-08-14 10:09:03 2019-08-14 10:09:03 Outpatient [facility] [id number] [facility] 2019-08-03 09:09:27 2019-08-03 09:09:27 Outpatient [facility] [id number] [facility] 2019-07-28 00:00:00 2019-07-28 00:00:00 Outpatient [facility] [id number] [facility] 2019-07-27 12:00:30 2019-07-27 12:00:30 Outpatient [facility] [id number] [facility] 2019-07-27 10:00:36 2019-07-27 10:00:36 Outpatient [facility] [id number] [facility] 2019-07-27 00:00:00 2019-07-27 00:00:00 Outpatient [facility] [id number] [facility] 2019-07-23 18:13:00 2019-07-23 19:44:00 Departed Emergency Room [facility] [id number] [facility] 2019-06-17 18:18:00 2019-06-17 23:49:00 [facility] [id number] [facility] 2019-01-23 21:40:00 2019-01-24 00:45:00 Departed Emergency Room 1 CHEIKH PIKE [facility] [id number] [facility] 2018-09-19 09:56:00 2018-09-19 11:10:00 Departed Emergency Room [facility] [id number] [facility] - Patients [facility] 2018-09-10 20:41:00 2018-09-10 20:55:00 Departed Emergency Room [facility] [id number] [facility] - Patients [facility] 2018-09-06 08:16:00 2018-09-06 10:05:00 Departed Emergency Room [facility] [id number] [facility] - Patients [facility] 2018-03-17 13:10:00 2018-03-19 09:55:00 Discharged Inpatient 1 JUAN DUBOSE [facility] [id number] [facility] 2018-01-17 19:55:00 2018-01-17 21:41:00 Departed Emergency Room ER SURYA DEAN [facility] [id number] [facility] 2018-01-15 17:59:00 2018-01-15 20:39:00 Departed Emergency Room ER SHAHID JACKSON [facility] [id number] [facility] 2017-12-28 12:15:00 2017-12-28 12:40:00 Departed Emergency Room [facility] [id number] [facility] 2017-12-04 13:19:00 2017-12-04 20:28:00 Departed Emergency Room [facility] [id number] [facility] 2017-03-31 17:22:00 2017-04-01 01:14:00 Departed Emergency Room [facility] [id number] [facility] 2017-02-20 12:53:00 2017-02-20 17:09:00 Departed Emergency Room [facility] [id number] [facility] Results Test Description Test Time Test Comments Results Result Comments Source FOOT RIGHT COMPLETE 2020-06-30 15:16:00 [place] [address] Patient Name: YOLETTE URIBE MR #: [id number] : 1975 Age/Sex: 44/F Req #: [id number] Adm Physician: Ordered by: CROW CARLOS DO Report #: [id number] Location: ER Room/Bed: Procedure: [id number] DX/FOOT RIGHT COMPLETE Exam Date: 06/30/20 Exam Time: 1445 REPORT STATUS: Signed Exam: Right foot 3 views History: Fall, toe pain Comparison: Right foot 3 views 08/26/2015, right foot 3 views 01/17/2018, right foot 3 views 10/10/2019 Findings: No acute, displaced fracture or dislocation. Appropriate alignment between the medial cuneiform and second metatarsal base in keeping with an intact Lisfranc ligament. 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 Soft tissues are unremarkable. Impression: No acute osseous abnormality. Signed by: Dr. Jeannette Newell M.D. on 06/30/2020 3:21 PM Dictated By: JEANNETTE NEWELL MD 152 1 Transcribed By: JEMAL on 06/30/20 1521 COPY TO: CROW CARLOS DO Serum or plasma sodium measurement (moles/volume) 2020-06-13 17:13:00 Test Item Sodium Level (test code = 2951-2) 139 136-145 [facility] ([facility]/volume)2020-06-13 17:13:00* Test Item Value Reference Range Interpretation Comments Potassium Level (test code = 2823-3) 3.5 3.5-5.1 [facility] chloride measurement (moles/volume)2020-06-13 17:13:00* Test Item Value Reference Range Interpretation Comments Chloride Level (test code = 2075-0) 108 98-107 [facility] carbon dioxide, total measurement (moles/volume)2020-06-13 17:13:00* Test Item Value Reference Range Interpretation Comments Carbon Dioxide Level (test code = 2028-9) 21 22-29 [facility] anion [id number] 17:13:00* Test Item Value Reference Range Interpretation Comments Anion Gap (test code = 56155-0) 13.5 8-16 [facility] urea nitrogen measurement (mass/volume)2020-06-13 17:13:00* Test Item Value Reference Range Interpretation Comments Blood Urea Nitrogen (test code = 3094-0) 8 7-26 [facility] creatinine measurement (mass/volume)2020-06-13 17:13:00* Test Item Value Reference Range Interpretation Comments Creatinine (test code = 2160-0) 0.60 0.57-1.11 [facility] urea nitrogen/creatinine mass [id number] 17:13:00* Test Item Value Reference Range Interpretation Comments BUN/Creatinine Ratio (test code = 3097-3) 13 6-25 [facility] filtration rate (GFR) [id number] 17:13:00* Test Item Value Reference Range Interpretation Comments Estimat Glomerular Filtration Rate (test code = 214267445) > 60 >60 Ranges were taken from the National Kidney Disease Education Program and the [facility] literature.Reference ranges:60 or greater: Cinszr93-77 ( for 3 consecutive months): Chronic kidney disease 15 or less: Kidney failureHCA [facility] Healthcare [facility]ressGlucose mjhzxnlwggq5831-42-56 17:13:00* Test Item Value Reference Range Interpretation Comments Glucose Level (test code = EFH2229) 141 74-118 [facility] plasma calcium measurement (mass/volume)2020-06-13 17:13:00* Test Item Value Reference Range Interpretation Comments Calcium Level (test code = 34629-6) 7.8 8.4-10.2 [facility]ress[facility]oroscopic procedure less than one hour [id number] 17:13:00* Test Item Value Reference Range Interpretation Comments Lactic Acid Level (test code = Lactic Acid Level) 2.5 0.5- 2.0 Results repeated and called to BARBRA MARTINEZ RN at 1737 on 06/13/20 by Phan Velazco. Read back and verified.[facility] sodium measurement (moles/volume)2020-06-13 17:13:00* Test Item Value Reference Range Interpretation Comments Sodium Level (test code = 2951-2) 139 136-145 [facility] potassium measurement (moles/volume)2020-06-13 17:13:00* Test Item Value Reference Range Interpretation Comments Potassium Level (test code = 2823-3) 3.5 3.5-5.1 [facility] chloride measurement (moles/volume)2020-06-13 17:13:00* Test Item Value Reference Range Interpretation Comments Chloride Level (test code = 2075-0) 108 98-107 [facility] plasma carbon dioxide, total measurement (moles/volume)2020-06-13 17:13:00* Test Item Value Reference Range Interpretation Comments Carbon Dioxide Level (test code = 2028-9) 21 22-29 [facility] plasma anion [id number] 17:13:00* Test Item Value Reference Range Interpretation Comments Anion Gap (test code = 71586-1) 13.5 8-16 [facility] urea nitrogen measurement (mass/volume)2020-06-13 17:13:00* Test Item Value Reference Range Interpretation Comments Blood Urea Nitrogen (test code = 3094-0) 8 7-26 [facility] creatinine measurement (mass/volume)2020-06-13 17:13:00* Test Item Value Reference Range Interpretation Comments Creatinine (test code = 2160-0) 0.60 0.57-1.11 [facility] urea nitrogen/creatinine mass [id number] 17:13:00* Test Item Value Reference Range Interpretation Comments BUN/Creatinine Ratio (test code = 3097-3) 13 6-25 [facility]ress[facility]ated glomerular filtration rate (GFR) qhozyhufehfkr9438-39-21 17:13:00* Test Item Value Reference Range Interpretation Comments Estimat Glomerular Filtration Rate (test code = 791134535) > 60 >60 Ranges were taken from the National Kidney Disease Education Program and the [facility] literature.Reference ranges:60 or greater: Azbxao94-31 ( for 3 consecutive months): Chronic kidney disease 15 or less: Kidney failureHCA Houston Healthcare North CypressGlucose qrtgpgcypgb4053-05-42 17:13:00* Test Item Value Reference Range Interpretation Comments Glucose Level (test code = JTM6133) 141 74-118 [facility] plasma calcium measurement (mass/volume)2020-06-13 17:13:00* Test Item Value Reference Range Interpretation Comments Calcium Level (test code = 61231-6) 7.8 8.4-10.2 [facility]ressFluoroscopic procedure less than one hour [id number] 17:13:00* Test Item Value Reference Range Interpretation Comments Lactic Acid Level (test code = Lactic Acid Level) 2.5 0.5- 2.0 Results repeated and called to BARBRA MARTINEZ RN at 1737 on 06/13/20 by Phan Velazco. Read back and verified.[facility] Capillary blood glucose measurement by glucometer (mass/volume)2020-06-13 16:09:00* Test Item Value Reference Range Interpretation Comments Bedside Glucose (test code = 63874-1) 354 70-120 Meter ID: [id number] [facility] CypressCapillary blood glucose measurement by glucometer (mass/volume)2020-06-13 16:09:00* Test Item Value Reference Range Interpretation Comments Bedside Glucose (test code = 42429-7) 354 70-120 Meter ID: [id number] [facility] Healthcare [facility] CypressFluoroscopic procedure less than one hour [id number] 15:20:00* Test Item Value Reference Range Interpretation Comments Venous Blood pH (test code = Venous Blood pH) 7.376 7.35-7.3 8 [facility]ressFluoroscopic procedure less than one hour gflcpioe2338-88-68 15:20:00* Test Item Value Reference Range Interpretation Comments Venous Blood Partial Pressure CO2 (test code = Venous Blood Partial Pressure CO2) 43.3 44-48 [facility]ressFluoroscopic procedure less than one hour qfektesq1085-17-03 15:20:00* Test Item Value Reference Range Interpretation Comments Venous Blood Partial Pressure O2 (test code = Venous B lood Partial Pressure O2) 49 40-41 [facility]ressFluoroscopic procedure less than one hour znqdmuyd6957-41-19 15:20:00* Test Item Value Reference Range Interpretation Comments Venous Blood HCO3 (test code = Venous Blood HCO3) 25.4 21-2 2 [facility]ressFluoroscopic procedure less than one hour rzcduhkm7043-58-44 15:20:00* Test Item Value Reference Range Interpretation Comments Venous Blood Total Carbon Dioxide (test code = Venous Blood Total Carbon Dioxide) 27 [facility]ressFluoroscopic procedure less than one hour [id number] 15:20:00* Test Item Value Reference Range Interpretation Comments Venous Blood Base Excess (test code = Venous Blood Base Excess) 0 [facility]ressFluoroscopic procedure less than one hour tyytbhoq6444-27-74 15:20:00* Test Item Value Reference Range Interpretation Comments Venous Blood Oxygen Saturation (test code = Venous Blood Oxy gen Saturation) 83 [facility]ressFluoroscopic procedure less than one hour tkwkluqb5599-47-11 15:20:00* Test Item Value Reference Range Interpretation Comments FiO2 (test code = FiO2) 21 [facility]ressFluoroscopic procedure less than one hour mrbkkbig8992-07-14 15:20:00* Test Item Value Reference Range Interpretation Comments Venous Blood pH (test code = Venous Blood pH) 7.376 7.35-7.3 8 [facility] CypressFluoroscopic procedure less than one hour jfirgaye7109-56-30 15:20:00* Test Item Value Reference Range Interpretation Comments Venous Blood Partial Pressure CO2 (test code = Venous Blood Partial Pressure CO2) 43.3 44-48 [facility]ressFluoroscopic procedure less than one hour ijxtgwgd6106-85-99 15:20:00* Test Item Value Reference Range Interpretation Comments Venous Blood Partial Pressure O2 (test code = Venous B lood Partial Pressure O2) 49 40-41 [facility]ressFluoroscopic procedure less than one hour bfcltlkj0743-86-18 15:20:00* Test Item Value Reference Range Interpretation Comments Venous Blood HCO3 (test code = Venous Blood HCO3) 25.4 21-2 2 [facility]ressFluoroscopic procedure less than one hour dvcvfwji2722-70-33 15:20:00* Test Item Value Reference Range Interpretation Comments Venous Blood Total Carbon Dioxide (test code = Venous Blood Total Carbon Dioxide) 27 [facility]ressFluoroscopic procedure less than one hour tlfdgqwr5072-35-78 15:20:00* Test Item Value Reference Range Interpretation Comments Venous Blood Base Excess (test code = Venous Blood Base Excess) 0 [facility]ressFluoroscopic procedure less than one hour zllygslt2273-02-32 15:20:00* Test Item Value Reference Range Interpretation Comments Venous Blood Oxygen Saturation (test code = Venous Blood Oxy gen Saturation) 83 [facility] CypressFluoroscopic procedure less than one hour dphxkwzp9033-79-35 15:20:00* Test Item Value Reference Range Interpretation Comments FiO2 (test code = FiO2) 21 [facility] CypressCT BRAIN [id number] 15:19:00 [facility] [address] [address] Patient Name: YOLETTE URIBE MR #: [id number] : 1975 Age/Sex: 44/F Req #: [id number] Adm Physician: Ordered by: CHEIKH PIKE MD Report #: [id number] Location: ER Room/Bed: Procedure: CT/CT BRAIN WO Exam Date: 06/13/20 Exam [...] CHEIKH PIKE MD CHEST SINGLE (PORTABLE)2020-06-13 15:17:[address] [address] Patient Name: YOLETTE URIBE MR #: [id number] : 1975 Age/Sex: 44/F Req #: [id number] Adm Physician: Ordered by: CHEIKH PIKE MD Report #: [id number] Location: ER Room/Bed: Procedure: [id number] DX/CHEST SINGLE (PORTABLE) Exam Date: 06/13/20 Exam [...] acute intrathoracic process. Signed by: Merritt De LaC ruz MD on 06/13/2020 3:18 PM Dictated By: MERRITT DE LA CRUZ MD 17 Transcribed By: JEMAL on 06/13/20 1518 COPY TO: CHEIKH PIKE MD Urine color wqwpqmuifpdvk3073-56-22 14:48:00* Test Item Value Reference Range Interpretation Comments Urine Color (test code = 5778-6) YELLOW YELLOW [facility] CypressUrine dnuvmkl7017-24-51 14:48:00* Test Item Value Reference Range Interpretation Comments Urine Clarity (test code = 81247-4) [facility] 2020-06-13 14:48:00* Test Item Value Reference Range Interpretation Comments Urine Specific [place] (test code = 5811-5) 1.010 1.010-1.02 5 [facility]ressUrine pH measurement by automated test fouyd7959-60-20 14:48:00* Test Item Value Reference Range Interpretation Comments Urine pH (test code = 51346-1) 6 5-7 [facility]ressUrine leukocyte esterase detection by zxawmuee9164-33-36 14:48:00* Test Item Value Reference Range Interpretation Comments Urine Leukocyte Esterase (test code = 5799-2) NEGATIVE NEGATIVE [facility]ressUrine nitrite vxdvqndxs7938-40-31 14:48:00* Test Item Value Reference Range Interpretation Comments Urine Nitrite (test code = 23890-7) NEGATIVE NEGATIVE [facility]ressUrine protein measurement by test strip (mass/volume)2020-06-13 14:48:00* Test Item Value Reference Range Interpretation Comments Urine Protein (test code = 5804-0) NEGATIVE NEGATIVE [facility]ressUrine glucose qxumjynxi0481-53-85 14:48:00* Test Item Value Reference Range Interpretation Comments Urine Glucose (UA) (test code = 2349-9) 3+ NEGATIVE [facility]ressUrine ketones detection by automated test elyhw7152-04-71 14:48:00* Test Item Value Reference Range Interpretation Comments Urine Ketones (test code = 79397-4) NEGATIVE NEGATIVE [facility]ressUrine opiates screening wjmj5356-09-60 14:48:00* Test Item Value Reference Range Interpretation Comments Urine Opiates Screen (test code = 41092-6) NEGATIVE NEGATIVE ALL TESTS PERFORMED MANUALLY ON [employer] TOX/SEE TESTHCA [facility] CypressBarbiturates screen, xlovv1084-24-67 14:48:00* Test Item Value Reference Range Interpretation Comments Urine Barbiturates Screen (test code = 891738537) NEGATIVE NEGA TIVE [facility] CypressUrine phencyclidine detection by screening vvmboo1951-23-64 14:48:00* Test Item Value Reference Range Interpretation Comments Urine Phencyclidine Screen (test code = 21455-8) NEGATIVE NEGAT ЕЛЕНА [facility] CypressUrine amphetamines detection by screen method > 1000 ng/aC2946-97-09 14:48:00* Test Item Value Reference Range Interpretation Comments Urine Amphetamines Screen (test code = 04091-5) NEGATIVE NEGATI VE [facility] CypressFluoroscopic procedure less than one hour odfjzupb3325-02-78 14:48:00* Test Item Value Reference Range Interpretation Comments Urine Methamphetamines Screen (test code = Urine Metha mphetamines Screen) NEGATIVE NEGATIVE [facility]ressUrine benzodiazepines detection by screening protmi7219-88-92 14:48:00* Test Item Value Reference Range Interpretation Comments Urine Benzodiazepines Screen (test code = 06809-3) NEGATIVE NEG ATIVE [facility]ressUrine cocaine measurement (mass/volume) 2020-06-13 14:48:00* Test Item Value Reference Range Interpretation Comments Urine Cocaine Screen (test code = 3398-5) NEGATIVE NEGATIVE [facility] CypressUrine cannabinoids detection by screening sifwgb3627-43-52 14:48:00* Test Item Value Reference Range Interpretation Comments Urine Cannabinoids Screen (test code = 52923-0) NEGATIVE NEGATI VE THESE RESULTS ARE FOR MEDICAL TREATMENT ONLYTHIS REPORT CONTAINS UNCONFIR MED SCREENING RESULTS*POSITIVE RESULTS WILL BE CONFIRMED BY REFERENCE LAB UPON R EQUEST CUT-OFFDRUG CLASS CONCENTRATION ng/mLAmphetamines 1000Methamphetamines 1000Cocaine 300Opiate 300Phencyc lidine 25Cannabinoid 50Barbiturates 300Benzodiazepine 300Methadone 300[facility] CypressUrine methadone vvkjuw4914-40-63 14:48:00* Test Item Value Reference Range Interpretation Comments Urine Methadone Screen (test code = 82186-5) NEGATIVE NEGATIVE THESE RESULTS ARE FOR MEDICAL TREATMENT ONLYTHIS REPORT CONTAINS UNCONFIR MED SCREENING RESULTS*POSITIVE RESULTS WILL BE CONFIRMED BY REFERENCE LAB UPON R EQUEST CUT-OFFDRUG CLASS CONCENTRATION ng/mLAmphetamines 1000Methamphetamines 1000Cocaine Metabolite 300Opiate 300Phencyc lidine 25Cannabinoid 50Barbiturates 300Benzodiazepine 300Methadone 300[facility] CypressUrine urobilinogen measurement by test strip (mass/volume)2020-06-13 14:48:00* Test Item Value Reference Range Interpretation Comments Urine Urobilinogen (test code = 34488-6) 0.2 0.2-1 [facility]ressUrine total bilirubin measurement (mass/volume)2020-06-13 14:48:00* Test Item Value Reference Range Interpretation Comments Urine Bilirubin (test code = 1978-6) NEGATIVE NEGATIVE [facility]ressUrine erythrocytes iddstsneu5391-71-16 14:48:00* Test Item Value Reference Range Interpretation Comments Urine Blood (test code = 25623-0) NEGATIVE NEGATIVE [facility] CypressAutomated urine sediment leukocyte count by microscopy (number/high power field)2020-06-13 14:48:00* Test Item Value Reference Range Interpretation Comments Urine WBC (test code = 5821-4) NONE 0-5 [facility] CypressErythrocytes detection in urine sediment by light uijekndsyc6269-03-92 14:48:00* Test Item Value Reference Range Interpretation Comments Urine RBC (test code = 35274-7) NONE 0-5 [facility] CypressBacteria detection in urine sediment by light zypcpkinfs0946-31-41 14:48:00* Test Item Value Reference Range Interpretation Comments Urine Bacteria (test code = 54894-8) RARE NONE [facility] CypressEpithelial cells detection in urine sediment by light amxoegziqf4014-99-35 14:48:00* Test Item Value Reference Range Interpretation Comments Urine Epithelial Cells (test code = 09654-4) NONE NONE [facility] CypressUrine color rqevywigllepl4046-68-35 14:48:00* Test Item Value Reference Range Interpretation Comments Urine Color (test code = 5778-6) YELLOW YELLOW [facility] CypressUrine qctotdq4206-80-84 14:48:00* Test Item Value Reference Range Interpretation Comments Urine Clarity (test code = 07470-3) [facility]AR [facility]AR [facility] U[facility] by Test strip 2020-06-13 14:48:00* Test Item Value Reference Range Interpretation Comments Urine Specific [place] (test code = 5811-5) 1.010 1.010-1.02 5 [facility]ressUrine pH measurement by automated test wadxu2193-60-04 14:48:00* Test Item Value Reference Range Interpretation Comments Urine pH (test code = 15100-7) 6 5-7 [facility]ressUrine leukocyte esterase detection by frkqeqkf1323-23-14 14:48:00* Test Item Value Reference Range Interpretation Comments Urine Leukocyte Esterase (test code = 5799-2) NEGATIVE NEGATIVE [facility]ressUrine nitrite avnxadrah7292-40-86 14:48:00* Test Item Value Reference Range Interpretation Comments Urine Nitrite (test code = 90103-0) NEGATIVE NEGATIVE [facility]ressUrine protein measurement by test strip (mass/volume)2020-06-13 14:48:00* Test Item Value Reference Range Interpretation Comments Urine Protein (test code = 5804-0) NEGATIVE NEGATIVE [facility]ressUrine glucose xnsokqukq1420-69-20 14:48:00* Test Item Value Reference Range Interpretation Comments Urine Glucose (UA) (test code = 2349-9) 3+ NEGATIVE [facility]ressUrine ketones detection by automated test gjzex8432-06-35 14:48:00* Test Item Value Reference Range Interpretation Comments Urine Ketones (test code = 30396-5) NEGATIVE NEGATIVE [facility]ressUrine opiates screening rhyq9101-60-95 14:48:00* Test Item Value Reference Range Interpretation Comments Urine Opiates Screen (test code = 44784-3) NEGATIVE NEGATIVE ALL TESTS PERFORMED MANUALLY ON [employer] TOX/SEE TESTHCA [facility] CypressBarbiturates screen, mpfub9642-48-20 14:48:00* Test Item Value Reference Range Interpretation Comments Urine Barbiturates Screen (test code = 579771429) NEGATIVE NEGA TIVE [facility] CypressUrine phencyclidine detection by screening ocudhb8557-41-86 14:48:00* Test Item Value Reference Range Interpretation Comments Urine Phencyclidine Screen (test code = 86869-2) NEGATIVE NEGAT ЕЛЕНА [facility] CypressUrine amphetamines detection by screen method > 1000 ng/qI4365-02-45 14:48:00* Test Item Value Reference Range Interpretation Comments Urine Amphetamines Screen (test code = 35031-0) NEGATIVE NEGATI VE [facility] CypressFluoroscopic procedure less than one hour rlxofpca2332-69-47 14:48:00* Test Item Value Reference Range Interpretation Comments Urine Methamphetamines Screen (test code = Urine Metha mphetamines Screen) NEGATIVE NEGATIVE [facility]ressUrine benzodiazepines detection by screening dojstv8903-81-86 14:48:00* Test Item Value Reference Range Interpretation Comments Urine Benzodiazepines Screen (test code = 35152-3) NEGATIVE NEG ATIVE [facility]ressUrine cocaine measurement (mass/volume) 2020-06-13 14:48:00* Test Item Value Reference Range Interpretation Comments Urine Cocaine Screen (test code = 3398-5) NEGATIVE NEGATIVE [facility] CypressUrine cannabinoids detection by screening hvagdx6047-44-17 14:48:00* Test Item Value Reference Range Interpretation Comments Urine Cannabinoids Screen (test code = 67081-6) NEGATIVE NEGATI VE THESE RESULTS ARE FOR MEDICAL TREATMENT ONLYTHIS REPORT CONTAINS UNCONFIR MED SCREENING RESULTS*POSITIVE RESULTS WILL BE CONFIRMED BY REFERENCE LAB UPON R EQUEST CUT-OFFDRUG CLASS CONCENTRATION ng/mLAmphetamines 1000Methamphetamines 1000Cocaine 300Opiate 300Phencyc lidine 25Cannabinoid 50Barbiturates 300Benzodiazepine 300Methadone 300[facility]landUrine methadone uoecix0997-66-45 14:48:00* Test Item Value Reference Range Interpretation Comments Urine Methadone Screen (test code = 77881-9) NEGATIVE NEGATIVE THESE RESULTS ARE FOR MEDICAL TREATMENT ONLYTHIS REPORT CONTAINS UNCONFIR MED SCREENING RESULTS*POSITIVE RESULTS WILL BE CONFIRMED BY REFERENCE LAB UPON R EQUEST CUT-OFFDRUG CLASS CONCENTRATION ng/mLAmphetamines 1000Methamphetamines 1000Cocaine Metabolite 300Opiate 300Phencyc lidine 25Cannabinoid 50Barbiturates 300Benzodiazepine 300Methadone 300[facility] PearlandUrine urobilinogen measurement by test strip (mass/volume)2020-06-13 14:48:00* Test Item Value Reference Range Interpretation Comments Urine Urobilinogen (test code = 87219-2) 0.2 0.2-1 [facility]ressUrine total bilirubin measurement (mass/volume)2020-06-13 14:48:00* Test Item Value Reference Range Interpretation Comments Urine Bilirubin (test code = 1978-6) NEGATIVE NEGATIVE [facility]ressUrine erythrocytes iaoakmjwu0287-80-46 14:48:00* Test Item Value Reference Range Interpretation Comments Urine Blood (test code = 30504-3) NEGATIVE NEGATIVE [facility] CypressAutomated urine sediment leukocyte count by microscopy (number/high power field)2020-06-13 14:48:00* Test Item Value Reference Range Interpretation Comments Urine WBC (test code = 5821-4) NONE 0-5 [facility] CypressErythrocytes detection in urine sediment by light cwrgkcuxnh2879-59-21 14:48:00* Test Item Value Reference Range Interpretation Comments Urine RBC (test code = 34424-0) NONE 0-5 [facility] CypressBacteria detection in urine sediment by light panfxxtkos9827-21-51 14:48:00* Test Item Value Reference Range Interpretation Comments Urine Bacteria (test code = 23143-1) RARE NONE [facility] CypressEpithelial cells detection in urine sediment by light gpjxrewdgk6962-85-19 14:48:00* Test Item Value Reference Range Interpretation Comments Urine Epithelial Cells (test code = 15225-2) NONE NONE [facility] leukocytes automated count (number/volume)2020-06-13 14:30:00* Test Item Value Reference Range Interpretation Comments White Blood Count (test code = 6690-2) 7.90 4.8-10.8 [facility] CypressBlood erythrocytes automated count (number/volume)2020-06-13 14:30:00* Test Item Value Reference Range Interpretation Comments Red Blood Count (test code = 789-8) 4.92 3.6-5.1 [facility] CypressBlood hemoglobin measurement (moles/volume)2020-06-13 14:30:00* Test Item Value Reference Range Interpretation Comments Hemoglobin (test code = 84818-6) 14.0 12.0-16.0 [facility]ressAutformerly [facility], [facility]ed blood hematocrit (volume fraction)2020-06-13 14:30:00* Test Item Value Reference Range Interpretation Comments Hematocrit (test code = 4544-3) 41.1 34.2-44.1 [facility] CypressAutomated erythrocyte mean corpuscular cebacg4713-39-09 14:30:00* Test Item Value Reference Range Interpretation Comments Mean Corpuscular Volume (test code = 787-2) 83.5 81-99 [facility] CypressAutomated erythrocyte mean corpuscular hemoglobin (mass per erythrocyte)2020-06-13 14:30:00* Test Item Value Reference Range Interpretation Comments Mean Corpuscular Hemoglobin (test code = 785-6) 28.5 28-32 [facility] CypressAutomated erythrocyte mean corpuscular hemoglobin concentration measurement (mass/volume)2020-06-13 14:30:00* Test Item Value Reference Range Interpretation Comments Mean Corpuscular Hemoglobin Concent (test code = 786-4) 34.1 31-35 [facility] CypressRDW MveMt-Gvu7555-26-01 14:30:00* Test Item Value Reference Range Interpretation Comments Red Cell Distribution Width (test code = 34350-8) 12.1 11.7 -14.4 [facility] CypressAutomated blood platelet count (count/volume)2020-06-13 14:30:00* Test Item Value Reference Range Interpretation Comments Platelet Count (test code = 777-3) 302 140-360 [facility] CypressAutomated blood segmented neutrophil count as percentage of total xqnbhgpbqq3183-88-31 14:30:00* Test Item Value Reference Range Interpretation Comments Neutrophils (%) (Auto) (test code = 49871-8) 59.3 38.7-80.0 [facility] CypressAutomated blood lymphocyte count as percentage ot total gbcqcxmflt0407-20-71 14:30:00* Test Item Value Reference Range Interpretation Comments Lymphocytes (%) (Auto) (test code = 736-9) 32.7 18.0-39.1 [facility] CypressAutomated blood monocyte count as percentage of total dxbrkkiqmq3694-19-67 14:30:00* Test Item Value Reference Range Interpretation Comments Monocytes (%) (Auto) (test code = 5905-5) 6.3 4.4-11.3 [facility] CypressAutomated blood eosinophil count as percentage of total mhkfexudzi4894-52-21 14:30:00* Test Item Value Reference Range Interpretation Comments Eosinophils (%) (Auto) (test code = 713-8) 0.9 0.0-6.0 [facility] CypressAutomated blood basophil count as percentage of total ikkrwpbpgu9974-42-59 14:30:00* Test Item Value Reference Range Interpretation Comments Basophils (%) (Auto) (test code = 706-2) 0.5 0.0-1.0 [facility] CypressFluoroscopic procedure less than one hour qojblboj0225-20-43 14:30:00* Test Item Value Reference Range Interpretation Comments IM GRANULOCYTES % (test code = IM GRANULOCYTES %) 0.3 0.0- 1.0 [facility] CypressAutomated blood neutrophil count 2020-06-13 14:30:00* Test Item Value Reference Range Interpretation Comments Neutrophils # (Auto) (test code = 751-8) 4.7 2.1-6.9 [facility] CypressBlood lymphocytes count (number/volume) 2020-06-13 14:30:00* Test Item Value Reference Range Interpretation Comments Lymphocytes # (Auto) (test code = 10042-4) 2.6 1.0-3.2 [facility] CypressBlood monocytes automated count (number/volume)2020-06-13 14:30:00* Test Item Value Reference Range Interpretation Comments Monocytes # (Auto) (test code = 742-7) 0.5 0.2-0.8 [facility] CypressAutomated blood eosinophil count 2020-06-13 14:30:00* Test Item Value Reference Range Interpretation Comments Eosinophils # (Auto) (test code = 711-2) 0.1 0.0-0.4 [facility] CypressAutomated blood basophil count (count/volume)2020-06-13 14:30:00* Test Item Value Reference Range Interpretation Comments Basophils # (Auto) (test code = 704-7) 0.0 0.0-0.1 [facility] CypressFluoroscopic procedure less than one hour wuqtgxrz2608-32-00 14:30:00* Test Item Value Reference Range Interpretation Comments Absolute Immature Granulocyte (auto (chiquita t code = Absolute Immature Granulocyte (auto) 0.02 0-0.1 [facility] CypressProthrombin time (PT) in platelet poor plasma by coagulation gknma5920-37-18 14:30:00* Test Item Value Reference Range Interpretation Comments Prothrombin Time (test code = 5902-2) 12.0 11.9-14.5 [facility] CypressINR in Platelet poor plasma by Coagulation yagiy6924-98-20 14:30:00* Test Item Value Reference Range Interpretation Comments Prothromb Time International Ratio (test code = 6301-6) 0.85 Oral Anticoagulant Therapy INR Values:1. Low Intensity Therapy 1.5 - 2.02 . Moderate Intensity Therapy 2.0 - 3.03. High Intensity Therapy(1) 2.5 - 3. 54. High Intensity Therapy(2) 3.0 - 4.05. Panic Value INR > 5.0 [facility] CypressActivated partial thromboplastin time (aPTT) in platelet poor plasma by coagulation igcea4401-44-37 14:30:00* Test Item Value Reference Range Interpretation Comments Activated Partial Thromboplast Time (test code = 15704-4) 29.7 23.8-35.5 [facility] magnesium measurement (mass/volume)2020-06-13 14:30:00* Test Item Value Reference Range Interpretation Comments Magnesium Level (test code = 78489-5) 1.7 1.3-2.1 [facility]er[facility] plasma total bilirubin measurement (mass/volume)2020-06-13 14:30:00* Test Item Value Reference Range Interpretation Comments Total Bilirubin (test code = 1975-2) 0.3 0.2-1.2 [facility]ressFluoroscopic procedure less than one hour oqrkvlyw0109-56-91 14:30:00* Test Item Value Reference Range Interpretation Comments Aspartate Amino Transf (AST/SGOT) (test code = Aspartate Amino Transf (AST/SGOT)) 11 5-34 [facility]er[facility] alanine aminotransferase measurement (enzymatic activity/volume)2020-06-13 14:30:00* Test Item Value Reference Range Interpretation Comments Alanine Aminotransferase (ALT/SGPT) (test code = 1742-6) 14 0-55 [facility]er[facility] plasma protein measurement (mass/volume)2020-06-13 14:30:00* Test Item Value Reference Range Interpretation Comments Total Protein (test code = 2885-2) 7.7 6.5-8.1 [facility]er[facility] plasma albumin measurement (mass/volume)2020-06-13 14:30:00* Test Item Value Reference Range Interpretation Comments Albumin (test code = 1751-7) 4.7 3.5-5.0 [facility] CypressPlasma globulin measurement (mass/volume) 2020-06-13 14:30:00* Test Item Value Reference Range Interpretation Comments Globulin (test code = 25373-5) 3.0 2.3-3.5 [facility]er[facility] plasma albumin/globulin mass ishkl2983-73-59 14:30:00* Test Item Value Reference Range Interpretation Comments Albumin/Globulin Ratio (test code = 1759-0) 1.6 0.8-2.0 [facility]er[facility] plasma alkaline phosphatase measurement (enzymatic activity/volume)2020-06-13 14:30:00* Test Item Value Reference Range Interpretation Comments Alkaline Phosphatase (test code = 6768-6) 121 40-150 [facility]er[facility] or plasma creatine kinase measurement (enzymatic activity/volume)2020-06-13 14:30:00* Test Item Value Reference Range Interpretation Comments Creatine Kinase (test code = 2157-6) 34 29-168 [facility]er[facility] or plasma creatine kinase MB measurement (mass/volume)2020-06-13 14:30:00* Test Item Value Reference Range Interpretation Comments Creatine Kinase MB (test code = 94397-8) 1.20 0-5.0 [facility] CypressTroponin I measurement by highly sensitive enzyme jxwqrvkwbby9742-25-25 14:30:00* Test Item Value Reference Range Interpretation Comments Troponin I (test code = 26381-9) 0.004 0-0.300 [facility]er[facility] or plasma thyrotropin measurement by detection limit <= 0.005 miu/l (units/volume)2020-06-13 14:30:00* Test Item Value Reference Range Interpretation Comments Thyroid Stimulating Hormone (TSH) (test code = 74122-9) 1.139 0.350-4.940 [facility] CypressBlood leukocytes automated count (number/volume)2020-06-13 14:30:00* Test Item Value Reference Range Interpretation Comments White Blood Count (test code = 6690-2) 7.90 4.8-10.8 [facility] CypressBlood erythrocytes automated count (number/volume)2020-06-13 14:30:00* Test Item Value Reference Range Interpretation Comments Red Blood Count (test code = 789-8) 4.92 3.6-5.1 [facility] CypressBlood hemoglobin measurement (moles/volume)2020-06-13 14:30:00* Test Item Value Reference Range Interpretation Comments Hemoglobin (test code = 16694-3) 14.0 12.0-16.0 [facility] CypressAutomated blood hematocrit (volume fraction)2020-06-13 14:30:00* Test Item Value Reference Range Interpretation Comments Hematocrit (test code = 4544-3) 41.1 34.2-44.1 [facility] CypressAutomated erythrocyte mean corpuscular spyzqd3630-60-44 14:30:00* Test Item Value Reference Range Interpretation Comments Mean Corpuscular Volume (test code = 787-2) 83.5 81-99 [facility] CypressAutomated erythrocyte mean corpuscular hemoglobin (mass per erythrocyte)2020-06-13 14:30:00* Test Item Value Reference Range Interpretation Comments Mean Corpuscular Hemoglobin (test code = 785-6) 28.5 28-32 [facility]Aut[facility] erythrocyte mean corpuscular hemoglobin concentration measurement (mass/volume)2020-06-13 14:30:00* Test Item Value Reference Range Interpretation Comments Mean Corpuscular Hemoglobin Concent (test code = 786-4) 34.1 31-35 [facility] CypressRDW BwhId-Whu2058-67-01 14:30:00* Test Item Value Reference Range Interpretation Comments Red Cell Distribution Width (test code = 07957-9) 12.1 11.7 -14.4 [facility]ressAutformerly [facility], [facility]1983ed blood platelet count (count/volume)2020-06-13 14:30:00* Test Item Value Reference Range Interpretation Comments Platelet Count (test code = 777-3) 302 140-360 [facility]ressAutformerly [facility], [facility]ed blood segmented neutrophil count as percentage of total yozcldpxes1724-66-75 14:30:00* Test Item Value Reference Range Interpretation Comments Neutrophils (%) (Auto) (test code = 05392-3) 59.3 38.7-80.0 [facility] CypressAutomated blood lymphocyte count as percentage ot total fmfluxtihc2267-94-00 14:30:00* Test Item Value Reference Range Interpretation Comments Lymphocytes (%) (Auto) (test code = 736-9) 32.7 18.0-39.1 [facility] CypressAutomated blood monocyte count as percentage of total ocrlhaxdiy7351-42-67 14:30:00* Test Item Value Reference Range Interpretation Comments Monocytes (%) (Auto) (test code = 5905-5) 6.3 4.4-11.3 [facility] CypressAutomated blood eosinophil count as percentage of total fnqhgpkcpu6006-18-49 14:30:00* Test Item Value Reference Range Interpretation Comments Eosinophils (%) (Auto) (test code = 713-8) 0.9 0.0-6.0 [facility] CypressAutomated blood basophil count as percentage of total vccsreqgsn2671-09-66 14:30:00* Test Item Value Reference Range Interpretation Comments Basophils (%) (Auto) (test code = 706-2) 0.5 0.0-1.0 [facility] CypressFluoroscopic procedure less than one hour kusqztbv1835-39-98 14:30:00* Test Item Value Reference Range Interpretation Comments IM GRANULOCYTES % (test code = IM GRANULOCYTES %) 0.3 0.0- 1.0 [facility] CypressAutomated blood neutrophil count 2020-06-13 14:30:00* Test Item Value Reference Range Interpretation Comments Neutrophils # (Auto) (test code = 751-8) 4.7 2.1-6.9 [facility] CypressBlood lymphocytes count (number/volume) 2020-06-13 14:30:00* Test Item Value Reference Range Interpretation Comments Lymphocytes # (Auto) (test code = 44261-1) 2.6 1.0-3.2 [facility] CypressBlood monocytes automated count (number/volume)2020-06-13 14:30:00* Test Item Value Reference Range Interpretation Comments Monocytes # (Auto) (test code = 742-7) 0.5 0.2-0.8 [facility] CypressAutomated blood eosinophil count 2020-06-13 14:30:00* Test Item Value Reference Range Interpretation Comments Eosinophils # (Auto) (test code = 711-2) 0.1 0.0-0.4 [facility] CypressAutomated blood basophil count (count/volume)2020-06-13 14:30:00* Test Item Value Reference Range Interpretation Comments Basophils # (Auto) (test code = 704-7) 0.0 0.0-0.1 [facility] CypressFluoroscopic procedure less than one hour ilkmdahw0854-20-33 14:30:00* Test Item Value Reference Range Interpretation Comments Absolute Immature Granulocyte (auto (chiquita t code = Absolute Immature Granulocyte (auto) 0.02 0-0.1 [facility] CypressProthrombin time (PT) in platelet poor plasma by coagulation qqflb1542-16-58 14:30:00* Test Item Value Reference Range Interpretation Comments Prothrombin Time (test code = 5902-2) 12.0 11.9-14.5 [facility] CypressINR in Platelet poor plasma by Coagulation tzpkn0156-11-65 14:30:00* Test Item Value Reference Range Interpretation Comments Prothromb Time International Ratio (test code = 6301-6) 0.85 Oral Anticoagulant Therapy INR Values:1. Low Intensity Therapy 1.5 - 2.02 . Moderate Intensity Therapy 2.0 - 3.03. High Intensity Therapy(1) 2.5 - 3. 54. High Intensity Therapy(2) 3.0 - 4.05. Panic Value INR > 5.0 [facility] CypressActivated partial thromboplastin time (aPTT) in platelet poor plasma by coagulation sttan2818-21-77 14:30:00* Test Item Value Reference Range Interpretation Comments Activated Partial Thromboplast Time (test code = 44139-6) 29.7 23.8-35.5 [facility] magnesium measurement (mass/volume)2020-06-13 14:30:00* Test Item Value Reference Range Interpretation Comments Magnesium Level (test code = 00339-6) 1.7 1.3-2.1 [facility] Hospitalerum or plasma total bilirubin measurement (mass/volume)2020-06-13 14:30:00* Test Item Value Reference Range Interpretation Comments Total Bilirubin (test code = 1975-2) 0.3 0.2-1.2 [facility] CypressFluoroscopic procedure less than one hour tmaalrvl4320-56-55 14:30:00* Test Item Value Reference Range Interpretation Comments Aspartate Amino Transf (AST/SGOT) (test code = Aspartate Amino Transf (AST/SGOT)) 11 5-34 [facility] Hospitalerum or plasma alanine aminotransferase measurement (enzymatic activity/volume)2020-06-13 14:30:00* Test Item Value Reference Range Interpretation Comments Alanine Aminotransferase (ALT/SGPT) (test code = 1742-6) 14 0-55 [facility] Hospitalerum or plasma protein measurement (mass/volume)2020-06-13 14:30:00* Test Item Value Reference Range Interpretation Comments Total Protein (test code = 2885-2) 7.7 6.5-8.1 [facility] Hospitalerum or plasma albumin measurement (mass/volume)2020-06-13 14:30:00* Test Item Value Reference Range Interpretation Comments Albumin (test code = 1751-7) 4.7 3.5-5.0 [facility] CypressPlasma globulin measurement (mass/volume) 2020-06-13 14:30:00* Test Item Value Reference Range Interpretation Comments Globulin (test code = 90765-2) 3.0 2.3-3.5 [facility] Hospitalerum or plasma albumin/globulin mass cbjgg3227-43-77 14:30:00* Test Item Value Reference Range Interpretation Comments Albumin/Globulin Ratio (test code = 1759-0) 1.6 0.8-2.0 [facility] Hospitalerum or plasma alkaline phosphatase measurement (enzymatic activity/volume)2020-06-13 14:30:00* Test Item Value Reference Range Interpretation Comments Alkaline Phosphatase (test code = 6768-6) 121 40-150 [facility] Hospitalerum or plasma creatine kinase measurement (enzymatic activity/volume)2020-06-13 14:30:00* Test Item Value Reference Range Interpretation Comments Creatine Kinase (test code = 2157-6) 34 29-168 [facility] Hospitalerum or plasma creatine kinase MB measurement (mass/volume)2020-06-13 14:30:00* Test Item Value Reference Range Interpretation Comments Creatine Kinase MB (test code = 33511-1) 1.20 0-5.0 [facility] CypressTroponin I measurement by highly sensitive enzyme ajukwzbtuvz3235-75-63 14:30:00* Test Item Value Reference Range Interpretation Comments Troponin I (test code = 95635-3) 0.004 0-0.300 [facility] Hospitalerum or plasma thyrotropin measurement by detection limit <= 0.005 miu/l (units/volume)2020-06-13 14:30:00* Test Item Value Reference Range Interpretation Comments Thyroid Stimulating Hormone (TSH) (test code = 40477-8) 1.139 0.350-4.940 [facility] CypressBlood drrgmcr4760-81-09 14:30:00* Test Item Value Reference Range Interpretation Comments Blood Culture (test code = 41557720) NO GROWTH AFTER 5 DAYS, FINAL REPORT [facility] CypressTROPONIN-[id number] 22:28:00* Test Item Value Reference Range Interpretation Comments TROPONIN-I (test code = TROPI) <0.015 ng/mL 0-0.045 N BASIC METABOLIC UEVBS0439-88-99 20:54:00* Test Item Value Reference Range Interpretation [...] = GLU) 576 mg/dL 74-106 [facility] sults called to [id number] by V.LAB.1 02/21/204Critical results verified and read back by [...] CA) 9.6 mg/dL 8.5-10.1 N HEPATIC FUNCTION SWZVH3478-36-91 20:54:00* Test Item Value Reference Range Interpretation [...] reference range due to change in reagent. ZAEHLIAVI6271-15-46 20:54:00* Test Item Value Reference Range Interpretation Comments MAGNESIUM (test code = MAG) 1.9 mg/dL 1.8-2.4 N IQLXTSOY-Q6316-50-11 20:54:00* Test Item Value Reference Range Interpretation Comments TROPONIN-I (test code = TROPI) <0.015 ng/mL 0-0.045 N - US ABDOMEN [id number] 20:24:00 Name: YOLETTE URIBE [facility] : 1975 Age/S: 44 / F [address] [facility] Unit #: [id number] Loc: [place] [address] Phys: Jose Luis Zapata MD Acct: [id number] Dis Date: Status: REG ER PHONE #: [phone] Exam Date: 02/21/20202016 FAX #: [phone] Reason: epgiastric pain EXAMS: CPT CODE: [id number] US ABDOMEN LTD 71256 EXAM: Ultrasound of the abdomen, limited; INFORMATION: [...] (2026) Probe: PAGE 1 Signed Report PROTHROMBIN [id number] 20:16:00* Test Item Value Reference Range Interpretation [...] (2.5-3.5) IS PATIENT ON ANTICOAGULANTS? NTHROMBOPLASTIN TIME [id number] 20:16:00* Test Item Value Reference Range Interpretation Comments THROMBOPLASTIN TIME PARTIAL (test code = PTT) 29.8 seconds 23.0-37. 0 N IS PATIENT ON ANTICOAGULANTS? NN-RXZWM7288-25-11 20:16:00* Test Item Value Reference Range Interpretation [...] - IS PATIENT ON ANTICOAGULANTS? NBASIC METABOLIC IWUZH0356-71-44 20:13:00* Test Item Value Reference Range Interpretation [...] code = CA) mg/dL 8.5-10.1 HEPATIC FUNCTION [id number] 20:13:00* Test Item Value Reference Range Interpretation [...] TOTAL (test code = ALKP) IUnit/L 45-117 PVXXCURXT5801-83-90 20:13:00* Test Item Value Reference Range Interpretation Comments MAGNESIUM (test code = MAG) mg/dL 1.8-2.4 TOVYWUEU-I9969-06-11 20:13:00* Test Item Value Reference Range Interpretation Comments TROPONIN-I (test code = TROPI) ng/mL 0-0.045 NHSJUZ8576-15-56 20:13:00* Test Item Value Reference Range Interpretation Comments LIPASE (test code = LIP) 229 U/L 73.0-393.0 N CBC W/O WHNU2170-50-09 20:06:00* Test Item Value Reference Range Interpretation [...] fL 6.7-11.0 H - XR CHEST 1 [id number] 19:47:00 [facility] REG FAX: Jose Luis Zapata MD Name: YOLETTE URIBE [facility] : 1975 Age/S: 44/F [address] Unit #: [id number] Loc: [place] [address] Phys: Jose Luis Zapata MD Acct: [id number] Dis Date: Status: REG ER PHONE #: [phone] Exam Date: 02/21/20201927 FAX #: [phone] Reason: CHEST PAIN EXAMS: CPT CODE: [id number] XR CHEST 1 V 70450 EXAM: Chest X-ray, 1 view; CLINICAL HISTORY: [...] 02/21/2020 (1949) PAGE 1 Signed Report Bedside Uwleguv8812-96-15 15:26:00* Test Item Value Reference Range Interpretation Comments Bedside Glucose (test code = 83565-4) 339 70-120 H Meter ID: [id number] [facility] Healthcare [facility] CypressHAND 3+ VIEWS LEFT 2020-01-11 14:28:00 [facility] [address] [place] [address] Patient Name: YOLETTE URIBE MR #: [id number] : 1975 Age/Sex: 44/F Req #: [id number] Adm Physician: Ordered by: GAUTAM ISABEL MD Report #: [id number] Location: ER Room/Bed: Procedure: [id number] DX/ HAND 3+ VIEWS LEFT Exam Date: 01/11/20 Exam Time: 26 06 REPORT STATUS: Signed EXAMINA TION: HAND 3+ [...] 2:31 PM Dictated By: KIN OTERO MD 143 Transcribed By: JEMAL on 01/11/20 1431 COPY TO: GAUTAM ISABEL MD Sodium Wdqgj3382-47-29 14:09:00* Test Item Value Reference Range Interpretation Comments Sodium Level (test code = 2951-2) 134 136-145 L [facility] CypressPotassium Judie5732-64-30 14:09:00* Test Item Value Reference Range Interpretation Comments Potassium Level (test code = 2823-3) 3.6 3.5-5.1 [facility] CypressChloride Ioljx9371-59-70 14:09:00* Test Item Value Reference Range Interpretation Comments Chloride Level (test code = 2075-0) 97 98-107 L [facility] CypressCarbon Dioxide Yhjwg7467-81-97 14:09:00* Test Item Value Reference Range Interpretation Comments Carbon Dioxide Level (test code = 2028-9) 24 - [facility] CypressAnion Yfb2148-50-54 14:09:00* Test Item Value Reference Range Interpretation Comments Anion Gap (test code = 33085-5) 16.6 8-16 H [facility] CypressBlood Urea Lpgabuse8971-32-21 14:09:00* Test Item Value Reference Range Interpretation Comments Blood Urea Nitrogen (test code = 3094-0) 11 7-26 [facility] CypressCreatinine2020-03-31 14:09:00* Test Item Value Reference Range Interpretation Comments Creatinine (test code = 2160-0) 0.85 0.57-1.11 [facility] CypressBUN/Creatinine Vanfa3236-80-64 14:09:00* Test Item Value Reference Range Interpretation Comments BUN/Creatinine Ratio (test code = 3097-3) 13 6- [facility] CypressEstimat Glomerular Filtration Rate 2020-01-11 14:09:00* Test Item Value Reference Range Interpretation Comments Estimat Glomerular Filtration Rate (test code = 412582223) > 60 >60 Ranges were taken from the National Kidney Disease Education Program and the [facility] Foundation literature.Reference ranges:60 or greater: Qxznbf85-43 ( for 3 consecutive months): Chronic kidney disease 15 or less: Kidney failureHCA Houston Healthcare North CypressGlucose Mgzhb8738-97-84 14:09:00* Test Item Value Reference Range Interpretation Comments Glucose Level (test code = LAP6559) 526 74-118 Results repeated and called to CHANDAN GUTIERREZ at 1408 on 01/11/20 by MARIEL MELISSA . Read back and verified.[facility] CypressCalcium Level 2020-01-11 14:09:00* Test Item Value Reference Range Interpretation Comments Calcium Level (test code = 75059-3) 9.6 8.4-10.2 [facility] CypressTotal Cwetpttju5598-13-34 14:09:00* Test Item Value Reference Range Interpretation Comments Total Bilirubin (test code = 1975-) 0.3 0.2-1.2 [facility] CypressAspartate Amino Transf (AST/SGOT) 2020-01-11 14:09:00* Test Item Value Reference Range Interpretation Comments Aspartate Amino Transf (AST/SGOT) (test code = Aspartate Amino Transf (AST/SGOT)) 19 5-34 [facility] CypressAlanine Aminotransferase (ALT/SGPT) 2020-01-11 14:09:00* Test Item Value Reference Range Interpretation Comments Alanine Aminotransferase (ALT/SGPT) (test code = 1742-6) 20 0-55 [facility] CypressTotal Vbcuyfr0710-61-69 14:09:00* Test Item Value Reference Range Interpretation Comments Total Protein (test code = 2885-2) 7.1 6.5-8.1 [facility] CypressAlbumin2020-03-31 14:09:00* Test Item Value Reference Range Interpretation Comments Albumin (test code = 1751-7) 3.4 3.5-5.0 L [facility] CypressGlobulin2020-03-31 14:09:00* Test Item Value Reference Range Interpretation Comments Globulin (test code = 11428-4) 3.7 2.3-3.5 H [facility] CypressAlbumin/Globulin Syego0031-10-72 14:09:00 * Test Item Value Reference Range Interpretation Comments Albumin/Globulin Ratio (test code = 1759-0) 0.9 0.8-2.0 [facility] CypressAlkaline Auaifqjsrkt4178-22-54 14:09:00* Test Item Value Reference Range Interpretation Comments Alkaline Phosphatase (test code = 6768-6) 160 40-150 H [facility] CypressWhite Blood Dkhxy5831-95-08 13:56:00* Test Item Value Reference Range Interpretation Comments White Blood Count (test code = 6690-2) 15.13 4.8-10.8 H [facility] CypressRed Blood Mkfqa7203-49-30 13:56:00* Test Item Value Reference Range Interpretation Comments Red Blood Count (test code = 789-8) 5.05 3.6-5.1 [facility] CypressHemoglobin2020-03-31 13:56:00* Test Item Value Reference Range Interpretation Comments Hemoglobin (test code = 13144-0) 14.9 12.0-16.0 [facility] CypressHematocrit2020-03-31 13:56:00* Test Item Value Reference Range Interpretation Comments Hematocrit (test code = 4544-3) 42.7 34.2-44.1 [facility] CypressMean Corpuscular Qmiwfv5650-46-82 13:56:00* Test Item Value Reference Range Interpretation Comments Mean Corpuscular Volume (test code = 787-2) 84.6 81-99 [facility] CypressMean Corpuscular Iqetuhjske8932-84-43 13:56:00* Test Item Value Reference Range Interpretation Comments Mean Corpuscular Hemoglobin (test code = 785-6) 29.5 28-32 [facility] CypressMean Corpuscular Hemoglobin Concent 2020-01-11 13:56:00* Test Item Value Reference Range Interpretation Comments Mean Corpuscular Hemoglobin Concent (test code = 786-4) 34.9 31-35 [facility] CypressRed Cell Distribution Lhgan2842-28-45 13:56:00* Test Item Value Reference Range Interpretation Comments Red Cell Distribution Width (test code = 00262-2) 12.3 11.7 -14.4 [facility] CypressPlatelet Eycog8793-54-07 13:56:00* Test Item Value Reference Range Interpretation Comments Platelet Count (test code = 777-3) 309 140-360 [facility] CypressNeutrophils (%) (Auto)2020-01-11 13:56:00 * Test Item Value Reference Range Interpretation Comments Neutrophils (%) (Auto) (test code = 61052-9) 76.5 38.7-80.0 [facility] CypressLymphocytes (%) (Auto)2020-01-11 13:56:00 * Test Item Value Reference Range Interpretation Comments Lymphocytes (%) (Auto) (test code = 736-9) 16.9 18.0-39.1 L [facility] CypressMonocytes (%) (Auto)2020-01-11 13:56:00* Test Item Value Reference Range Interpretation Comments Monocytes (%) (Auto) (test code = 5905-5) 5.5 4.4-11.3 [facility] CypressEosinophils (%) (Auto)2020-01-11 13:56:00 * Test Item Value Reference Range Interpretation Comments Eosinophils (%) (Auto) (test code = 713-8) 0.3 0.0-6.0 [facility] CypressBasophils (%) (Auto)2020-01-11 13:56:00* Test Item Value Reference Range Interpretation Comments Basophils (%) (Auto) (test code = 706-2) 0.3 0.0-1.0 [facility] CypressIM GRANULOCYTES %2020-01-11 13:56:00* Test Item Value Reference Range Interpretation Comments IM GRANULOCYTES % (test code = IM GRANULOCYTES %) 0.5 0.0- 1.0 [facility] CypressNeutrophils # (Auto)2020-01-11 13:56:00* Test Item Value Reference Range Interpretation Comments Neutrophils # (Auto) (test code = 751-8) 11.6 2.1-6.9 H [facility] CypressLymphocytes # (Auto)2020-01-11 13:56:00* Test Item Value Reference Range Interpretation Comments Lymphocytes # (Auto) (test code = 44616-7) 2.6 1.0-3.2 [facility] CypressMonocytes # (Auto)2020-01-11 13:56:00* Test Item Value Reference Range Interpretation Comments Monocytes # (Auto) (test code = 742-7) 0.8 0.2-0.8 [facility] CypressEosinophils # (Auto)2020-01-11 13:56:00* Test Item Value Reference Range Interpretation Comments Eosinophils # (Auto) (test code = 711-2) 0.0 0.0-0.4 [facility] CypressBasophils # (Auto)2020-01-11 13:56:00* Test Item Value Reference Range Interpretation Comments Basophils # (Auto) (test code = 704-7) 0.1 0.0-0.1 [facility] CypressAbsolute Immature Granulocyte (auto 2020-01-11 13:56:00* Test Item Value Reference Range Interpretation Comments Absolute Immature Granulocyte (auto (chiquita t code = Absolute Immature Granulocyte (auto) 0.07 0-0.1 [facility] CypressCoronavirus (PCR)2020-01-04 06:12:00* Test Item Value Reference Range Interpretation Comments Coronavirus (PCR) (test code = Coronavirus (PCR)) NOT DETECTED NOTD ETECTED CORONAVIRUS QIBW-RMX-1-RT-PCR (RESPIRATORY)This test has been validated but FDA' s independent review of the validation is pending. This test is performed as a l aboratory developed test; independent review of the validation under FDA's Emerg ency Use Authorization (EUA) authority will be performed according to current idance requirements.We will continue to follow federal and state requirements fo r both notification of results and confirmatory testing that is required by [facility] her agency.This test was developed and its performance characteristics determine d by [employer]. It has not been cleared or approved by the U.S. Food and Drug Administration. Results should be used in conjunction with clinical finding s, and should not form the sole basis for a diagnosis or treatment decision.Spec imen sent to [facility] and performed at [employer], [address] [place] [address]. [address]71JNEHCA [facility] Healthcare North CypressChlamydia pneumoniae DNA (PCR)2020-01-01 05:49:00* Test Item Value Reference Range Interpretation Comments Chlamydia pneumoniae DNA (PCR) (test code = Chlamydia pneumoniae DNA (PCR)) NOT DETECTED NOT DETECT Test performed at [facility] [place], [place] [address]RESULTS HAVE BEEN [facility]ED [facility] AliceInfluenza Type A (RT-PCR)2020-01-01 05:49:00* Test Item Value Reference Range Interpretation Comments Influenza Type A (RT-PCR) (test code = 389075622) NOT DETECTED NOT DETECT [facility] CypressMycoplasma pneumoniae (PCR)2020-01-01 05:49:00* Test Item Value Reference Range Interpretation Comments Mycoplasma pneumoniae (PCR) (test code = Mycoplasma pn eumoniae (PCR)) NOT DETECTED NOT DETECT [facility] CypressInfluenza Type B (RT-PCR)2020-01-01 05:49:00* Test Item Value Reference Range Interpretation Comments Influenza Type B (RT-PCR) (test code = 828856699) NOT DETECTED NOT DETECT [facility] CypressRespiratory Syncytial Virus (PCR) 2020-01-01 05:49:00* Test Item Value Reference Range Interpretation Comments Respiratory Syncytial Virus (PCR) (test code = 814874999) NO T DETECTED NOT DETECT [facility] CypressBordetella pertussis DNA (PCR)2020-01-01 05:49:00* Test Item Value Reference Range Interpretation Comments Bordetella pertussis DNA (PCR) (test code = 465538640) NOT DETEC ROXANE NOT DETECT [facility] CypressParainfluenza Type 1 (PCR)2020-01-01 05:49:00* Test Item Value Reference Range Interpretation Comments Parainfluenza Type 1 (PCR) (test code = 557017931) NOT DETECTED NOT DETECT [facility] CypressParainfluenza Type 2 (PCR)2020-01-01 05:49:00* Test Item Value Reference Range Interpretation Comments Parainfluenza Type 2 (PCR) (test code = 919828981) NOT DETECTED NOT DETECT [facility] CypressParainfluenza Type 3 (PCR)2020-01-01 05:49:00* Test Item Value Reference Range Interpretation Comments Parainfluenza Type 3 (PCR) (test code = 750076007) NOT DETECTED NOT DETECT [facility] CypressParainfluenza Type 4 (PCR)2020-01-01 05:49:00* Test Item Value Reference Range Interpretation Comments Parainfluenza Type 4 (PCR) (test code = Parainfluenza Type 4 (PCR)) NOT DETECTED NOT DETECT [facility] CypressRhinovirus (PCR)2020-01-01 05:49:00* Test Item Value Reference Range Interpretation Comments Rhinovirus (PCR) (test code = 367518369) NOT DETECTED NOT DETECT [facility] CypressHuman Metapneumovirus (PCR)2020-01-01 05:49:00* Test Item Value Reference Range Interpretation Comments Human Metapneumovirus (PCR) (test code = 238102381) NOT DETECTED NO T DETECT [facility] CypressAdenovirus (PCR)2020-01-01 05:49:00* Test Item Value Reference Range Interpretation Comments Adenovirus (PCR) (test code = 980513563) NOT DETECTED NOT DETECT [facility] Type HKU1 (PCR)2020-01-01 05:49:00* Test Item Value Reference Range Interpretation Comments Coronavirus Type HKU1 (PCR) (test code = Coronavirus T ype HKU1 (PCR)) NOT DETECTED NOT DETECT [facility]onavirus Type NL63 (PCR)2020-01-01 05:49:00* Test Item Value Reference Range Interpretation Comments Coronavirus Type NL63 (PCR) (test code = Coronavirus T ype NL63 (PCR)) NOT DETECTED NOT DETECT [facility]ressCoronavirus Type OC43 (PCR)2020-01-01 05:49:00* Test Item Value Reference Range Interpretation Comments Coronavirus Type OC43 (PCR) (test code = Coronavirus T ype OC43 (PCR)) NOT DETECTED NOT DETECT [facility]onavirus Type 229E (PCR)2020-01-01 05:49:00* Test Item Value Reference Range Interpretation Comments Coronavirus Type 229E (PCR) (test code = Coronavirus T ype 229E (PCR)) NOT DETECTED NOT DETECT Test performed at [place] [address] 7002RESULTS HAVE BEEN CALLED TO THE PHYSICIANH[facility] CypressDifferential Total Cells Uatvefq8557-63-54 21:02:00* Test Item Value Reference Range Interpretation Comments Differential Total Cells Counted (test code = Differen tial Total Cells Counted) 100 [facility]ressNeutrophils % (Manual)2019-12-31 21:02:00 * Test Item Value Reference Range Interpretation Comments Neutrophils % (Manual) (test code = 40813-7) 61 40-74 [facility]ressBand Neutrophils %2019-12-31 21:02:00* Test Item Value Reference Range Interpretation Comments Band Neutrophils % (test code = 764-1) 2 [facility]ressLymphocytes % (Manual)2019-12-31 21:02:00 * Test Item Value Reference Range Interpretation Comments Lymphocytes % (Manual) (test code = 737-7) 22 19-48 [facility]ressMonocytes % (Manual)2019-12-31 21:02:00* Test Item Value Reference Range Interpretation Comments Monocytes % (Manual) (test code = 744-3) 6 3.4-9.0 [facility]ressEosinophils % (Manual)2019-12-31 21:02:00 * Test Item Value Reference Range Interpretation Comments Eosinophils % (Manual) (test code = 714-6) 1 0-7 [facility]ressMetamyelocytes %2019-12-31 21:02:00* Test Item Value Reference Range Interpretation Comments Metamyelocytes % (test code = 740-1) 1 0-0 H [facility] CypressMyelocytes %2019-12-31 21:02:00* Test Item Value Reference Range Interpretation Comments Myelocytes % (test code = 749-2) 1 0-0 H [facility] CypressReactive Fvxouxuuuca2076-75-94 21:02:00* Test Item Value Reference Range Interpretation Comments Reactive Lymphocytes (test code = 22853-7) 6 [facility] CypressPlatelet Opqanbjo5765-04-57 21:02:00* Test Item Value Reference Range Interpretation Comments Platelet Estimate (test code = 54687-8) ADEQUATE [facility] CypressPlatelet Morphology Efzeesc3090-16-52 21:02:00* Test Item Value Reference Range Interpretation Comments Platelet Morphology Comment (test code = 43449-7) NORMAL [facility] CypressRed Cell Morphology Ouyapgz5437-02-61 21:02:00* Test Item Value Reference Range Interpretation Comments Red Cell Morphology Comment (test code = 6742-1) NORMAL [facility] CypressCreatine Lhmnqk0850-81-52 15:18:00* Test Item Value Reference Range Interpretation Comments Creatine Kinase (test code = 2157-6) 24 29-168 L [facility] CypressCreatine Kinase XV0270-89-56 15:18:00* Test Item Value Reference Range Interpretation Comments Creatine Kinase MB (test code = 59413-1) 0.30 0-5.0 [facility] CypressTroponin I8942-09-49 15:18:00* Test Item Value Reference Range Interpretation Comments Troponin I (test code = JHP8564) 0.001 0-0.300 [facility] CypressGroup A Streptococcus Lbbako4532-79-97 14:57:00* Test Item Value Reference Range Interpretation Comments Group A Streptococcus Screen (test code = 52747-1) NEGATIVE [facility] antigen detection in vzsfff3704-52-05 14:37:00* Test Item Value Reference Range Interpretation Comments Group A Streptococcus Screen (test code = 15320-8) NEGATIVE [facility] Hospitaltrept[facility] pyogenes antigen detection in zvkazb1636-24-79 14:37:00* Test Item Value Reference Range Interpretation Comments Group A Streptococcus Screen (test code = 99866-6) NEGATIVE NEG ATIVE [facility] CypressFluoroscopic procedure less than one hour ckaeujoh0975-41-30 13:25:00* Test Item Value Reference Range Interpretation Comments Differential Total Cells Counted (test code = Differmilton tial Total Cells Counted) 100 [facility] blood neutrophils/100 leukocytes 2019-12-31 13:25:00* Test Item Value Reference Range Interpretation Comments Neutrophils % (Manual) (test code = 24502-1) 61 40-74 [facility] blood band neutrophils form/100 akydgyeyws5762-27-74 13:25:00* Test Item Value Reference Range Interpretation Comments Band Neutrophils % (test code = 764-1) 2 [facility] blood lymphocytes/100 leukocytes 2019-12-31 13:25:00* Test Item Value Reference Range Interpretation Comments Lymphocytes % (Manual) (test code = 737-7) 22 19-48 [facility] blood monocytes/100 leukocytes 2019-12-31 13:25:00* Test Item Value Reference Range Interpretation Comments Monocytes % (Manual) (test code = 744-3) 6 3.4-9.0 [facility] blood eosinophil count as percentage of total ddmxwakqdb4217-91-23 13:25:00* Test Item Value Reference Range Interpretation Comments Eosinophils % (Manual) (test code = 714-6) 1 0-7 [facility] blood metamyelocytes/100 jfxbgbfsyo5656-99-20 13:25:00* Test Item Value Reference Range Interpretation Comments Metamyelocytes % (test code = 740-1) 1 0-0 [facility] blood myelocytes/100 leukocytes 2019-12-31 13:25:00* Test Item Value Reference Range Interpretation Comments Myelocytes % (test code = 749-2) 1 0-0 [facility] lymphocytes variant count (number/volume)2019-12-31 13:25:00* Test Item Value Reference Range Interpretation Comments Reactive Lymphocytes (test code = 24874-5) 6 [facility] count by estimate (number/volume)2019-12-31 13:25:00* Test Item Value Reference Range Interpretation Comments Platelet Estimate (test code = 11703-3) ADEQUATE [facility] CypressPlatelet txxlqzbmtr8268-38-41 13:25:00* Test Item Value Reference Range Interpretation Comments Platelet Morphology Comment (test code = 18236-7) NORMAL [facility] CypressRB fjtonqxxgw0826-54-82 13:25:00* Test Item Value Reference Range Interpretation Comments Red Cell Morphology Comment (test code = 6742-1) NORMAL [facility] CypressFluoroscopic procedure less than one hour nwaegmwo8248-07-49 13:25:00* Test Item Value Reference Range Interpretation Comments Differential Total Cells Counted (test code = Amanda tial Total Cells Counted) 100 [facility] blood neutrophils/100 leukocytes 2019-12-31 13:25:00* Test Item Value Reference Range Interpretation Comments Neutrophils % (Manual) (test code = 82496-1) 61 40-74 [facility] blood band neutrophils form/100 qqduvdlbrt9597-63-51 13:25:00* Test Item Value Reference Range Interpretation Comments Band Neutrophils % (test code = 764-1) 2 [facility] blood lymphocytes/100 leukocytes 2019-12-31 13:25:00* Test Item Value Reference Range Interpretation Comments Lymphocytes % (Manual) (test code = 737-7) 22 19-48 [facility] blood monocytes/100 leukocytes 2019-12-31 13:25:00* Test Item Value Reference Range Interpretation Comments Monocytes % (Manual) (test code = 744-3) 6 3.4-9.0 [facility] blood eosinophil count as percentage of total egezvvidqp7963-22-68 13:25:00* Test Item Value Reference Range Interpretation Comments Eosinophils % (Manual) (test code = 714-6) 1 0-7 [facility] blood metamyelocytes/100 lgxbhkgqyx1570-33-98 13:25:00* Test Item Value Reference Range Interpretation Comments Metamyelocytes % (test code = 740-1) 1 0-0 [facility] blood myelocytes/100 leukocytes 2019-12-31 13:25:00* Test Item Value Reference Range Interpretation Comments Myelocytes % (test code = 749-2) 1 0-0 [facility] lymphocytes variant count (number/volume)2019-12-31 13:25:00* Test Item Value Reference Range Interpretation Comments Reactive Lymphocytes (test code = 55240-0) 6 [facility] platelets count by estimate (number/volume)2019-12-31 13:25:00* Test Item Value Reference Range Interpretation Comments Platelet Estimate (test code = 28706-8) ADEQUATE [facility]ressPlatelet uztqcxkmvw6366-79-32 13:25:00* Test Item Value Reference Range Interpretation Comments Platelet Morphology Comment (test code = 69622-6) NORMAL [facility]ressRB hffryqmlle5791-65-43 13:25:00* Test Item Value Reference Range Interpretation Comments Red Cell Morphology Comment (test code = 6742-1) NORMAL [facility] SINGLE (PORTABLE)2019-12-31 13:13:00 [place] [address] Patient Name: YOLETTE URIBE MR #: [id number] : 1975 Age/Sex: 44/F Req #: [id number] Adm Physician: Ordered by: ROSARIO MORENO HOME THEATRE TECHNICIAN Report #: [id number] Location: ER Room/Bed: Procedure: [id number] DX /CHEST SINGLE (PORTABLE) Exam Date: 12/31/19 [...] 12/31/19 1313 C OPY TO: ROSARIO MORENO HOME THEATRE TECHNICIAN Fluoroscopic procedure less than one hour kprjndvh9760-36-71 13:00:00* Test Item Value Reference Range Interpretation Comments Chlamydia pneumoniae DNA (PCR) (test code = Chlamydia pneumoniae DNA (PCR)) NOT DETECTED NOT DETECT Test performed at [place] [address] 8240RESULTS HAVE BEEN CALLED TO THE PHYSICIANH[facility]ressRespiratory virus ouiht5266-57-21 13:00:00* Test Item Value Reference Range Interpretation Comments Influenza Type A (RT-PCR) (test code = 261216920) NOT DETECTED NOT DETECT [facility] CypressFluoroscopic procedure less than one hour egawoyjn6137-58-62 13:00:00* Test Item Value Reference Range Interpretation Comments Mycoplasma pneumoniae (PCR) (test code = Mycoplasma pn eumoniae (PCR)) NOT DETECTED NOT DETECT [facility]ressRespiratory virus mvuew1055-36-81 13:00:00* Test Item Value Reference Range Interpretation Comments Influenza Type B (RT-PCR) (test code = 475732292) NOT DETECTED NOT DETECT [facility] dcrpw1182-43-62 13:00:00* Test Item Value Reference Range Interpretation Comments Respiratory Syncytial Virus (PCR) (test code = 066279325) NO T DETECTED NOT DETECT [facility]ressRespiratory virus dnxvn1367-37-94 13:00:00* Test Item Value Reference Range Interpretation Comments Bordetella pertussis DNA (PCR) (test code = 918298497) NOT DETEC ROXANE NOT DETECT [facility]ressRespiratory virus iqvpi0201-38-70 13:00:00* Test Item Value Reference Range Interpretation Comments Parainfluenza Type 1 (PCR) (test code = 892987052) NOT DETECTED NOT DETECT [facility]ressRespiratory virus iplhq8930-77-27 13:00:00* Test Item Value Reference Range Interpretation Comments Parainfluenza Type 2 (PCR) (test code = 840658725) NOT DETECTED NOT DETECT [facility]ressRespiratory virus egvrb1777-60-91 13:00:00* Test Item Value Reference Range Interpretation Comments Parainfluenza Type 3 (PCR) (test code = 951348205) NOT DETECTED NOT DETECT [facility] CypressFluoroscopic procedure less than one hour kkdioeqe6150-51-31 13:00:00* Test Item Value Reference Range Interpretation Comments Parainfluenza Type 4 (PCR) (test code = Parainfluenza Type 4 (PCR)) NOT DETECTED NOT DETECT [facility]ressRespiratory virus jsopt1326-44-39 13:00:00* Test Item Value Reference Range Interpretation Comments Rhinovirus (PCR) (test code = 504392049) NOT DETECTED NOT DETECT [facility]ressRespiratory virus hvwjn2883-44-90 13:00:00* Test Item Value Reference Range Interpretation Comments Human Metapneumovirus (PCR) (test code = 419618765) NOT DETECTED NO T DETECT [facility]ressRespiratory virus uhgcu0735-38-48 13:00:00* Test Item Value Reference Range Interpretation Comments Adenovirus (PCR) (test code = 375670372) NOT DETECTED NOT DETECT [facility]ressFluoroscopic procedure less than one hour hyuioaas7937-47-23 13:00:00* Test Item Value Reference Range Interpretation Comments Coronavirus Type 229E (PCR) (test code = Coronavirus T ype 229E (PCR)) NOT DETECTED NOT DETECT Test performed at [place] [address] 7030RESULTS HAVE BEEN CALLED TO THE PHYSICIANCHI [facility] PearlandFluoroscopic procedure less than one hour mxzufder9126-05-45 13:00:00* Test Item Value Reference Range Interpretation Comments Coronavirus Type HKU1 (PCR) (test code = Coronavirus T ype HKU1 (PCR)) NOT DETECTED NOT DETECT [facility] CypressFluoroscopic procedure less than one hour rjblfbzm9229-66-57 13:00:00* Test Item Value Reference Range Interpretation Comments Coronavirus Type NL63 (PCR) (test code = Coronavirus T ype NL63 (PCR)) NOT DETECTED NOT DETECT [facility] CypressFluoroscopic procedure less than one hour nqxtxuan4145-50-83 13:00:00* Test Item Value Reference Range Interpretation Comments Coronavirus Type OC43 (PCR) (test code = Coronavirus T ype OC43 (PCR)) NOT DETECTED NOT DETECT [facility] CypressFluoroscopic procedure less than one hour nqavarse0000-86-43 13:00:00* Test Item Value Reference Range Interpretation Comments Coronavirus (PCR) (test code = Coronavirus (PCR)) NOT DETECTED NOTD ETECTED CORONAVIRUS HXDE-QHE-3-RT-PCR (RESPIRATORY)This test has been validated but FDA' s independent review of the validation is pending. This test is performed as a l aboratory developed test; independent review of the validation under FDA's Emerg ency Use Authorization (EUA) authority will be performed according to current [place] requirements.We will continue to follow federal and state requirements fo r both notification of results and confirmatory testing that is required by [facility] her agency.This test was developed and its performance characteristics determine d by [employer]. It has not been cleared or approved by the U.S. Food and Drug Administration. Results should be used in conjunction with clinical finding s, and should not form the sole basis for a diagnosis or treatment decision.Spec imen sent to [facility] and performed at [employer], [address] [place] [address]. [address]LGCHCA [facility] CypressFluoroscopic procedure less than one hour tczkoijx8689-52-39 13:00:00* Test Item Value Reference Range Interpretation Comments Chlamydia pneumoniae DNA (PCR) (test code = Chlamydia pneumoniae DNA (PCR)) NOT DETECTED NOT DETECT Test performed at [facility] [place] [address] 7130RESULTS HAVE BEEN [facility]ED [facility]Res[facility] virus ffeyj9631-10-54 13:00:00* Test Item Value Reference Range Interpretation Comments Influenza Type A (RT-PCR) (test code = 370998564) NOT DETECTED NOT DETECT [facility] CypressFluoroscopic procedure less than one hour fabzliuh1791-03-12 13:00:00* Test Item Value Reference Range Interpretation Comments Mycoplasma pneumoniae (PCR) (test code = Mycoplasma pn eumoniae (PCR)) NOT DETECTED NOT DETECT [facility]ressRespiratory virus dkmhs8255-88-23 13:00:00* Test Item Value Reference Range Interpretation Comments Influenza Type B (RT-PCR) (test code = 702699215) NOT DETECTED NOT DETECT [facility] CypressRespiratory virus pieha3402-32-24 13:00:00* Test Item Value Reference Range Interpretation Comments Respiratory Syncytial Virus (PCR) (test code = 487709755) NO T DETECTED NOT DETECT [facility] CypressRespiratory virus mjvth0293-24-54 13:00:00* Test Item Value Reference Range Interpretation Comments Bordetella pertussis DNA (PCR) (test code = 006336910) NOT DETEC ROXANE NOT DETECT [facility] pqugz1914-86-15 13:00:00* Test Item Value Reference Range Interpretation Comments Parainfluenza Type 1 (PCR) (test code = 371527993) NOT DETECTED NOT DETECT [facility]ressRespiratory virus mstxe6371-27-78 13:00:00* Test Item Value Reference Range Interpretation Comments Parainfluenza Type 2 (PCR) (test code = 018092549) NOT DETECTED NOT DETECT [facility] virus lapmt6345-83-23 13:00:00* Test Item Value Reference Range Interpretation Comments Parainfluenza Type 3 (PCR) (test code = 478720947) NOT DETECTED NOT DETECT [facility]ressFluoroscopic procedure less than one hour nitoikos3936-67-55 13:00:00* Test Item Value Reference Range Interpretation Comments Parainfluenza Type 4 (PCR) (test code = Parainfluenza Type 4 (PCR)) NOT DETECTED NOT DETECT [facility]ressRespiratory virus nfrmj9392-05-34 13:00:00* Test Item Value Reference Range Interpretation Comments Rhinovirus (PCR) (test code = 567273097) NOT DETECTED NOT DETECT [facility]ressRespiratory virus rrnih3786-13-79 13:00:00* Test Item Value Reference Range Interpretation Comments Human Metapneumovirus (PCR) (test code = 894947776) NOT DETECTED NO T DETECT [facility]ressRespiratory virus cfsnt4496-15-99 13:00:00* Test Item Value Reference Range Interpretation Comments Adenovirus (PCR) (test code = 007346821) NOT DETECTED NOT DETECT [facility] CypressFluoroscopic procedure less than one hour alqfsmpb0034-83-36 13:00:00* Test Item Value Reference Range Interpretation Comments Coronavirus Type 229E (PCR) (test code = Coronavirus T ype 229E (PCR)) NOT DETECTED NOT DETECT Test performed at [facility] [place], [place] [address]RESULTS HAVE BEEN CALLED TO THE PHYSICIANHCA [facility] CypressFluoroscopic procedure less than one hour atxkwiwx5497-89-88 13:00:00* Test Item Value Reference Range Interpretation Comments Coronavirus Type HKU1 (PCR) (test code = Coronavirus T ype HKU1 (PCR)) NOT DETECTED NOT DETECT [facility] CypressFluoroscopic procedure less than one hour orkyqgff2382-59-58 13:00:00* Test Item Value Reference Range Interpretation Comments Coronavirus Type NL63 (PCR) (test code = Coronavirus T ype NL63 (PCR)) NOT DETECTED NOT DETECT [facility] CypressFluoroscopic procedure less than one hour bmypiybs2274-77-86 13:00:00* Test Item Value Reference Range Interpretation Comments Coronavirus Type OC43 (PCR) (test code = Coronavirus T ype OC43 (PCR)) NOT DETECTED NOT DETECT [facility] CypressFluoroscopic procedure less than one hour gjuimdef0113-84-76 13:00:00* Test Item Value Reference Range Interpretation Comments Coronavirus (PCR) (test code = Coronavirus (PCR)) NOT DETECTED NOTD ETECTED CORONAVIRUS JXUS-LOA-4-RT-PCR (RESPIRATORY)This test has been validated but FDA' s independent review of the validation is pending. This test is performed as a l aboratory developed test; independent review of the validation under FDA's Emerg ency Use Authorization (EUA) authority will be performed according to current [facility] requirements.We will continue to follow federal and state requirements fo r both notification of results and confirmatory testing that is required by [facility] her agency.This test was developed and its performance characteristics determine d by [employer]. It has not been cleared or approved by the U.S. Food and Drug Administration. Results should be used in conjunction with clinical finding s, and should not form the sole basis for a diagnosis or treatment decision.Spec imen sent to [facility] and performed at [employer], [address] [place] [address], [place], [place]. [address]EPOHCA [facility] Healthcare North CypressInfluenza Virus Types A,B Upoktmw9744-07-99 11:26:00* Test Item Value Reference Range Interpretation Comments Influenza Virus Types A,B Antigen (test code = 92423-7) NEGATIVE NEGATIVE [facility] CypressInfluenza virus A and B antigen identification by sirpyhludbsbtclxif7011-08-22 10:49:00* Test Item Value Reference Range Interpretation Comments Influenza Virus Types A,B Antigen (test code = 94037-2) NEGATIVE NEGATIVE [facility] CypressInfluenza virus A and B antigen identification by yxacjgjttkxmwemcdn4977-29-11 10:49:00* Test Item Value Reference Range Interpretation Comments Influenza Virus Types A,B Antigen (test code = 55194-1) NEGATIVE NEGATIVE [facility] CypressXRAY KNEE 4 OR MORE VIEWS (TRAUMA - [...] erosion.Signed By: Yazan Terrazas MD, 11/23/2019 2:43 PMSabillasville HealthMAMMOGRAM BILAT SCREEN ZQYFQHL3967-51-59 14:41:00IMPRESSION: BENIGNThere is no mammographic evidence of malignancy. A 1 year screening mammogram is recommended. I have reviewed the study and agree with the findings in the report. This document has been electronically signed. Katie Sanders M.D.paresh connor/masood:11/23/2019 14:41:39 Wrapping Machine Operator: Bethany Boles, [facility] Hospitalletter sent: Benign Exam Mammogram BI-RADS: 2 Benign G0202 z12.31Interface, Rad/Mammog In - 11/23/2019 3:10 PM ARCHITECTURE TECHNICIAN#[id number] - MAMMOGRAM BILAT SCREEN DIGITALBILATERAL DIGITAL SCREENING [...] has been electronically signed.paresh Negrete M.D./masood:11/23/2019 14:41:39 Wrapping Machine Operator: Bethany Boles, [facility] Hospitalletter sent: Benign Exam Mammogram BI-RADS: 2 Benign G0202 z12.31[facility] LEFT THREE DTRQG1713-05-49 10:47:00 [place] [address] Patient Name: YOLETTE URIBE MR #: [id number] : 1975 Age/Sex: 44/F Req #: [id number] Adm Physician: Ordered by: CHEIKH PIKE MD Report #: [id number] Location: ER Room/Bed: Procedure: [id number] DX/KNEE LEFT THREE VIEWS Exam Date: 10/10/19 Exam Time: 1005 REPORT STATUS: Signed Exam: Left knee 3 views History: Knee pain Comparison: None. Findings: No fracture or malalignment. Joint spaces preserved. No abnormal soft tissue calcification or soft tissue defect. Impression: No acute osseous a bnormality Signed by: Dr. Bryan Nicole M.D. on 10/10/2019 10:48 AM Dictated By: BRYAN NICOLE MD Transcribed By: JEMAL on 10/10/198 COPY TO: CHEIKH PIKE MD FOOT RIGHT SPSISOGW8935-63-38 10:43:00 [place] [address] Patient Name: YOLETTE URIBE MR #: [id number] : 1975 Age/Sex: 44/F Req #: [id number] Adm Physician: Ordered by: CHEIKH PIKE MD Report #: [id number] Location: ER Room/Bed: Procedure: [id number] DX/FOOT RIGHT COMPLETE Exam Date: 10/10/19 Exam [...] NICOLE MD 1047 Transcribed By: JEMAL on 1047 COPY TO: CHEIKH PIKE MD ANKLE 3 + VIEWS RIGHT 2019-10-10 10:43:00 [place] [address] Patient Name: YOLETTE URIBE MR #: [id number] : 1975 Age/Sex: 44/F Req #: [id number] Adm Physician: Ordered by: CHEIKH PIKE MD Report #: [id number] Location: ER Room/Bed: Procedure: [id number] DX/ANKLE 3 + VIEWS RIGHT Exam Date: [...] on 10/10/19 104 Transcribed By: JEMAL on 104 COPY TO: CHEIKH PIKE MD LOWER LEG XZKMW4406-61-84 10:43:[address] [address] Patient Name: YOLETTE URIBE MR #: [id number] : 1975 Age/Sex: 44/F Req #: [id number] Adm Physician: Ordered by: CHEIKH PIKE MD Report #: [id number] Location: ER Room/Bed: Procedure: [id number] DX/LOWER LEG RIGHT Exam Date: 10/10/19 Exam [...] nicki By: BRYAN NICOLE MD on 10/10/19 104 Transcribed By: JEMAL on 9 1047 COPY TO: CHEIKH PIKE MD KNEE RIGHT THREE VIEWS 2019-10-10 10:43:00 [place] [address] Patient Name: YOLETTE URIBE MR #: [id number] : 1975 Age/Sex: 44/F Req #: [id number] Adm Physician: Ordered by: CHEIKH PIKE MD Report #: [id number] Location: ER Room/Bed: Procedure: [id number] DX/KNEE RIGHT THREE VIEWS Exam Date: 10/10/19 [...] CHEIKH PIKE MD XRAY SPINE THORACIC 2 [id number] 14:46:32IMPRESSION: 1. Please note that thoracic spine [...] report.Signed By: Yazan Terrazas MD, 08/30/2019 2:46 [place] DrdhcyOFCICE7944-32-73 15:28:00* Test Item Value Reference Range Interpretation Comments GLUBED (test code = GLUBED) 286 mg/dL 74-106 H Performed by certified burring machine operator at [facility] LKFXLL8043-16-26 15:28:00* Test Item Value Reference Range Interpretation Comments GLUBED (test code = GLUBED) > 500 mg/dL 74-106 HH Performed by certified burring machine operator [facility] Notified~ CBC W/O [id number] 14:40:00* Test Item Value Reference Range Interpretation [...] MPV) 11.7 fL 6.7-11.0 H CBC W/O QZOU7139-57-57 14:37:00* Test Item Value Reference Range Interpretation [...] MPV) fL 6.7-11.0 - CT ABD PELVIS W/CSFJ2134-57-65 12:34:00 Name: YOLETTE URIBE [facility] : 1975 Age/S: 44 / F [facility] Unit #: [id number] Loc: [place] [address] Phys: Farshad Tran MD Acct: [id number] Dis Date: Status: REG ER PHONE #: [phone] Exam Date: 08/29/2019 1203 FAX #: [phone] Reason: lower abd pain EXAMS: CPT CODE: [id number] CT ABD PELVIS W/CONT 25538 REASON FOR EXAM: lower abd pain EXAM ORDER DATE: 08/29/2019 10:51 AM Ordering M.D.: Farshad Tran MD PROCEDURE: - CT ABD [...] Signed Report (CO NTINUED) Name: YOLETTE URIBE [facility] : 1975 Age/S: 44 / F [address] [facility] Unit #: [id number] Loc: [place] [address] Phys: Farshad Saldana MD Acct: [id number] Dis Date: Status: REG ER P MAGDA #: [phone] Exam Date: 08/29/2019 1203 FAX #: [phone] Reason: lower abd pain EX AMS: CPT CODE: [id number] CT A BD PELVIS W/CONT 75306 <Continued> Location: [facility] at 1234 Reported and signed by: Heriberto John MD CC: Farshad Tran MD; Lamberto Shrestha III, MD Technologist:Liseth Manzanares RT(R),CT CTDI: DLP: Trnscb Date/Time: 08/29/2019 (2546) EdwigeRR31 Orig Print D/T: S: 08/29/2019 (0091) PAGE 2 Signed Report URINALYSIS [id number] 11:44:00* Test Item Value Reference Range Interpretation [...] FEW #/LPF FEW Urine Source? Clean CatchURINALYSIS AIHSGEAQ0917-31-89 11:39:00* Test Item Value Reference Range Interpretation [...] #/LPF FEW Urine Source? Clean CatchBASIC METABOLIC [id number] 11:38:00* Test Item Value Reference Range Interpretation [...] 541 mg/dL 74-106 Re sults called to [id number] by GEWN 08/29/19 1138Critical results verified and read back [...] CA) 9.3 mg/dL 8.5-10.1 N HEPATIC FUNCTION [id number] 11:38:00* Test Item Value Reference Range Interpretation [...] reference range due to change in reagent. [id number] 11:38:00* Test Item Value Reference Range Interpretation Comments LIPASE (test code = LIP) 131 U/L 73.0-393.0 N BASIC METABOLIC [id number] 11:24:00* Test Item Value Reference Range Interpretation [...] code = CA) mg/dL 8.5-10.1 HEPATIC FUNCTION [id number] 11:24:00* Test Item Value Reference Range Interpretation [...] TOTAL (test code = ALKP) IUnit/L 45-117 FDQWAK0618-40-26 11:24:00* Test Item Value Reference Range Interpretation Comments LIPASE (test code = LIP) U/L 73.0-393.0 Blood Mwnyaqg2298-13-11 09:50:00* Test Item Value Reference Range Interpretation Comments Blood Culture (test code = 03833318) NO GROWTH AFTER 5 DAYS, FINAL REPORT [facility] Ppvsjfu4819-60-11 09:50:00* Test Item Value Reference Range Interpretation Comments Blood Culture (test code = 63842547) NO GROWTH AFTER 5 DAYS, FINAL REPORT [facility] Uzbgsua5423-55-20 09:50:00* Test Item Value Reference Range Interpretation Comments Blood Culture (test code = 36440130) NO GROWTH AFTER 5 DAYS, FINAL REPORT [facility] Oxlmemi7724-02-37 04:39:00* Test Item Value Reference Range Interpretation Comments Bedside Glucose (test code = 35349-5) 299 70-120 H Meter ID: [id number] Glucose 2019-08-23 04:39:00* Test Item Value Reference Range Interpretation Comments Bedside Glucose (test code = 00842-1) 299 70-120 H Meter ID: [id number] [facility] Culture 2019-08-22 09:50:00* Test Item Value Reference Range Interpretation Comments Blood Culture (test code = 15981447) NO GROWTH AFTER 72 HOURS [facility] Dfqozru5665-59-72 08:41:00* Test Item Value Reference Range Interpretation Comments Wound Culture (test code = 6462-6) No Result Data Provided [facility] Xyxxwsi9268-87-36 08:41:00* Test Item Value Reference Range Interpretation Comments Wound Culture (test code = 6462-6) No Result Data Provided [facility] Lyxvcmg3294-75-59 08:41:00* Test Item Value Reference Range Interpretation Comments Wound Culture (test code = 6462-6) No Result Data Provided [facility] Ybmvtsi9825-40-09 08:41:00* Test Item Value Reference Range Interpretation Comments Wound Culture (test code = 6462-6) No Result Data Provided [facility] Hnihipn3545-93-81 07:40:00* Test Item Value Reference Range Interpretation Comments Bedside Glucose (test code = 48685-6) 321 70-120 H Meter ID: [id number] [facility] Zqkdhz5417-03-99 06:36:00* Test Item Value Reference Range Interpretation Comments Vancomycin Level Trough (test code = 4092-3) 4.5 5.0-10.0 [facility] Yeqtzf4923-03-32 06:36:00* Test Item Value Reference Range Interpretation Comments Vancomycin Level Trough (test code = 4092-3) 4.5 5.0-10.0 L [facility] Brownwoodycin Level Tifoye8707-77-53 06:36:00* Test Item Value Reference Range Interpretation Comments Vancomycin Level Trough (test code = 4092-3) 4.5 5.0-10.0 L [facility] Brownwoodycin Level Ybdrsw4286-67-65 06:36:00* Test Item Value Reference Range Interpretation Comments Vancomycin Level Trough (test code = 4092-3) 4.5 5.0-10.0 L [facility] Ehqjg1094-43-46 06:26:00* Test Item Value Reference Range Interpretation Comments Sodium Level (test code = 2951-2) 136 136-145 [facility] Wdtil8461-63-10 06:26:00* Test Item Value Reference Range Interpretation Comments Potassium Level (test code = 2823-3) 4.6 3.5-5.1 [facility] CypressChloride Qmnxl3072-73-63 06:26:00* Test Item Value Reference Range Interpretation Comments Chloride Level (test code = 2075-0) 98 98-107 [facility] CypressCarbon Dioxide Rvvoe7606-42-64 06:26:00* Test Item Value Reference Range Interpretation Comments Carbon Dioxide Level (test code = 2028-9) 30 22-29 H [facility] CypressAnion Goz4936-45-39 06:26:00* Test Item Value Reference Range Interpretation Comments Anion Gap (test code = 89511-1) 12.6 8-16 [facility] CypressBlood Urea Xwrqmyir1271-57-56 06:26:00* Test Item Value Reference Range Interpretation Comments Blood Urea Nitrogen (test code = 3094-0) 14 7-26 [facility] CypressCreatinine2019-11-10 06:26:00* Test Item Value Reference Range Interpretation Comments Creatinine (test code = 2160-0) 0.61 0.57-1.11 [facility] CypressBUN/Creatinine Nyequ1579-40-88 06:26:00* Test Item Value Reference Range Interpretation Comments BUN/Creatinine Ratio (test code = 3097-3) 23 6-25 [facility] CypressEstimat Glomerular Filtration Rate 2019-08-22 06:26:00* Test Item Value Reference Range Interpretation Comments Estimat Glomerular Filtration Rate (test code = 739902535) > 60 >60 Ranges were taken from the National Kidney Disease Education Program and the [facility] Foundation literature.Reference ranges:60 or greater: Zsanuu92-51 ( for 3 consecutive months): Chronic kidney disease 15 or less: Kidney failureHCA Houston Healthcare North CypressGlucose Wlcbx1570-90-30 06:26:00* Test Item Value Reference Range Interpretation Comments Glucose Level (test code = NKV3319) 314 74-118 H [facility] CypressCalcium Mtqzw3476-55-56 06:26:00* Test Item Value Reference Range Interpretation Comments Calcium Level (test code = 92484-8) 10.0 8.4-10.2 [facility] Ydsis1396-31-91 06:26:00* Test Item Value Reference Range Interpretation Comments Sodium Level (test code = 2951-2) 136 136-145 [facility] CypressPotassium Getvg9484-46-32 06:26:00* Test Item Value Reference Range Interpretation Comments Potassium Level (test code = 2823-3) 4.6 3.5-5.1 [facility] CypressChloride Meawz5008-59-89 06:26:00* Test Item Value Reference Range Interpretation Comments Chloride Level (test code = 2075-0) 98 98-107 [facility] CypressCarbon Dioxide Bruvc8025-79-58 06:26:00* Test Item Value Reference Range Interpretation Comments Carbon Dioxide Level (test code = 2028-9) 30 22-29 H [facility] CypressAnion Pja1182-61-85 06:26:00* Test Item Value Reference Range Interpretation Comments Anion Gap (test code = 65096-2) 12.6 8-16 [facility] CypressBlood Urea Mjnatodt6533-08-92 06:26:00* Test Item Value Reference Range Interpretation Comments Blood Urea Nitrogen (test code = 3094-0) 14 7-26 [facility] CypressCreatinine2019-11-10 06:26:00* Test Item Value Reference Range Interpretation Comments Creatinine (test code = 2160-0) 0.61 0.57-1.11 [facility] CypressBUN/Creatinine Pyzhg0375-23-34 06:26:00* Test Item Value Reference Range Interpretation Comments BUN/Creatinine Ratio (test code = 3097-3) 23 6-25 [facility] CypressEstimat Glomerular Filtration Rate 2019-08-22 06:26:00* Test Item Value Reference Range Interpretation Comments Estimat Glomerular Filtration Rate (test code = 300373497) > 60 >60 Ranges were taken from the National Kidney Disease Education Program and the [facility] Foundation literature.Reference ranges:60 or greater: Jnqmro88-50 ( for 3 consecutive months): Chronic kidney disease 15 or less: Kidney failureHCA [facility] Healthcare [facility] CypressGlucose Luztq5909-73-84 06:26:00* Test Item Value Reference Range Interpretation Comments Glucose Level (test code = GIM3445) 314 74-118 H [facility] CypressCalcium Qlsdb1630-01-51 06:26:00* Test Item Value Reference Range Interpretation Comments Calcium Level (test code = 59955-0) 10.0 8.4-10.2 [facility] Yksex1525-33-63 06:26:00* Test Item Value Reference Range Interpretation Comments Sodium Level (test code = 2951-2) 136 136-145 [facility] CypressPotassium Onyjk9399-15-63 06:26:00* Test Item Value Reference Range Interpretation Comments Potassium Level (test code = 2823-3) 4.6 3.5-5.1 [facility] CypressChloride Bojbm4561-94-33 06:26:00* Test Item Value Reference Range Interpretation Comments Chloride Level (test code = 2075-0) 98 98-107 [facility] CypressCarbon Dioxide Mwnxi4473-13-67 06:26:00* Test Item Value Reference Range Interpretation Comments Carbon Dioxide Level (test code = 2028-9) 30 22-29 H [facility] CypressAnion Oup1060-10-15 06:26:00* Test Item Value Reference Range Interpretation Comments Anion Gap (test code = 83419-0) 12.6 8-16 [facility] CypressBlood Urea Sztlekrq3945-56-05 06:26:00* Test Item Value Reference Range Interpretation Comments Blood Urea Nitrogen (test code = 3094-0) 14 7-26 [facility] CypressCreatinine2019-11-10 06:26:00* Test Item Value Reference Range Interpretation Comments Creatinine (test code = 2160-0) 0.61 0.57-1.11 [facility] CypressBUN/Creatinine Pufmb2038-07-35 06:26:00* Test Item Value Reference Range Interpretation Comments BUN/Creatinine Ratio (test code = 3097-3) 23 6-25 [facility] CypressEstimat Glomerular Filtration Rate 2019-08-22 06:26:00* Test Item Value Reference Range Interpretation Comments Estimat Glomerular Filtration Rate (test code = 735007328) > 60 >60 Ranges were taken from the National Kidney Disease Education Program and the [facility] Foundation literature.Reference ranges:60 or greater: Yplzog85-06 ( for 3 consecutive months): Chronic kidney disease 15 or less: Kidney failureHCA [facility] Healthcare North CypressGlucose Edmfk1078-43-49 06:26:00* Test Item Value Reference Range Interpretation Comments Glucose Level (test code = KRH7954) 314 74-118 H [facility] CypressCalcium Sirno4902-33-54 06:26:00* Test Item Value Reference Range Interpretation Comments Calcium Level (test code = 86353-3) 10.0 8.4-10.2 [facility] CypressWhite Blood Isofp3724-01-38 06:00:00* Test Item Value Reference Range Interpretation Comments White Blood Count (test code = 6690-2) 9.60 4.8-10.8 [facility] CypressRed Blood Lusnw4629-06-39 06:00:00* Test Item Value Reference Range Interpretation Comments Red Blood Count (test code = 789-8) 3.95 3.6-5.1 [facility] CypressHemoglobin2019-11-10 06:00:00* Test Item Value Reference Range Interpretation Comments Hemoglobin (test code = 35495-9) 11.6 12.0-16.0 L [facility] CypressHematocrit2019-11-10 06:00:00* Test Item Value Reference Range Interpretation Comments Hematocrit (test code = 4544-3) 34.0 34.2-44.1 L [facility] CypressMean Corpuscular Rqxxvd0968-23-00 06:00:00* Test Item Value Reference Range Interpretation Comments Mean Corpuscular Volume (test code = 787-2) 86.1 81-99 [facility] CypressMean Corpuscular Fagzeikgpn4574-09-52 06:00:00* Test Item Value Reference Range Interpretation Comments Mean Corpuscular Hemoglobin (test code = 785-6) 29.4 28-32 [facility] CypressMean Corpuscular Hemoglobin Concent 2019-08-22 06:00:00* Test Item Value Reference Range Interpretation Comments Mean Corpuscular Hemoglobin Concent (test code = 786-4) 34.1 31-35 [facility] CypressRed Cell Distribution Yxzgc3737-99-69 06:00:00* Test Item Value Reference Range Interpretation Comments Red Cell Distribution Width (test code = 81113-2) 12.7 11.7 -14.4 [facility] CypressPlatelet Fxwfw0418-25-95 06:00:00* Test Item Value Reference Range Interpretation Comments Platelet Count (test code = 777-3) 319 140-360 [facility] CypressNeutrophils (%) (Auto)2019-08-22 06:00:00 * Test Item Value Reference Range Interpretation Comments Neutrophils (%) (Auto) (test code = 23566-8) 77.9 38.7-80.0 [facility] CypressLymphocytes (%) (Auto)2019-08-22 06:00:00 * Test Item Value Reference Range Interpretation Comments Lymphocytes (%) (Auto) (test code = 736-9) 15.3 18.0-39.1 L [facility] CypressMonocytes (%) (Auto)2019-08-22 06:00:00* Test Item Value Reference Range Interpretation Comments Monocytes (%) (Auto) (test code = 5905-5) 6.1 4.4-11.3 [facility] CypressEosinophils (%) (Auto)2019-08-22 06:00:00 * Test Item Value Reference Range Interpretation Comments Eosinophils (%) (Auto) (test code = 713-8) 0.0 0.0-6.0 [facility] CypressBasophils (%) (Auto)2019-08-22 06:00:00* Test Item Value Reference Range Interpretation Comments Basophils (%) (Auto) (test code = 706-2) 0.2 0.0-1.0 [facility] CypressIM GRANULOCYTES %2019-08-22 06:00:00* Test Item Value Reference Range Interpretation Comments IM GRANULOCYTES % (test code = IM GRANULOCYTES %) 0.5 0.0- 1.0 [facility] CypressNeutrophils # (Auto)2019-08-22 06:00:00* Test Item Value Reference Range Interpretation Comments Neutrophils # (Auto) (test code = 751-8) 7.5 2.1-6.9 H [facility] CypressLymphocytes # (Auto)2019-08-22 06:00:00* Test Item Value Reference Range Interpretation Comments Lymphocytes # (Auto) (test code = 42320-0) 1.5 1.0-3.2 [facility] CypressMonocytes # (Auto)2019-08-22 06:00:00* Test Item Value Reference Range Interpretation Comments Monocytes # (Auto) (test code = 742-7) 0.6 0.2-0.8 [facility] CypressEosinophils # (Auto)2019-08-22 06:00:00* Test Item Value Reference Range Interpretation Comments Eosinophils # (Auto) (test code = 711-2) 0.0 0.0-0.4 [facility] CypressBasophils # (Auto)2019-08-22 06:00:00* Test Item Value Reference Range Interpretation Comments Basophils # (Auto) (test code = 704-7) 0.0 0.0-0.1 [facility] CypressAbsolute Immature Granulocyte (auto 2019-08-22 06:00:00* Test Item Value Reference Range Interpretation Comments Absolute Immature Granulocyte (auto (chiquita t code = Absolute Immature Granulocyte (auto) 0.05 0-0.1 [facility] CypressWhite Blood Veddt1700-03-12 06:00:00* Test Item Value Reference Range Interpretation Comments White Blood Count (test code = 6690-2) 9.60 4.8-10.8 [facility] CypressRed Blood Amcrj8081-82-18 06:00:00* Test Item Value Reference Range Interpretation Comments Red Blood Count (test code = 789-8) 3.95 3.6-5.1 [facility] CypressHemoglobin2019-11-10 06:00:00* Test Item Value Reference Range Interpretation Comments Hemoglobin (test code = 15795-0) 11.6 12.0-16.0 L [facility] CypressHematocrit2019-11-10 06:00:00* Test Item Value Reference Range Interpretation Comments Hematocrit (test code = 4544-3) 34.0 34.2-44.1 L [facility] CypressMean Corpuscular Mpzhno5539-98-19 06:00:00* Test Item Value Reference Range Interpretation Comments Mean Corpuscular Volume (test code = 787-2) 86.1 81-99 [facility] CypressMean Corpuscular Ioyvhmnidp0678-79-54 06:00:00* Test Item Value Reference Range Interpretation Comments Mean Corpuscular Hemoglobin (test code = 785-6) 29.4 28-32 [facility] CypressMean Corpuscular Hemoglobin Concent 2019-08-22 06:00:00* Test Item Value Reference Range Interpretation Comments Mean Corpuscular Hemoglobin Concent (test code = 786-4) 34.1 31-35 [facility] CypressRed Cell Distribution Nytqp4429-05-08 06:00:00* Test Item Value Reference Range Interpretation Comments Red Cell Distribution Width (test code = 72785-2) 12.7 11.7 -14.4 [facility] CypressPlatelet Uosvo3150-46-26 06:00:00* Test Item Value Reference Range Interpretation Comments Platelet Count (test code = 777-3) 319 140-360 [facility] CypressNeutrophils (%) (Auto)2019-08-22 06:00:00 * Test Item Value Reference Range Interpretation Comments Neutrophils (%) (Auto) (test code = 11955-2) 77.9 38.7-80.0 [facility] CypressLymphocytes (%) (Auto)2019-08-22 06:00:00 * Test Item Value Reference Range Interpretation Comments Lymphocytes (%) (Auto) (test code = 736-9) 15.3 18.0-39.1 L [facility] CypressMonocytes (%) (Auto)2019-08-22 06:00:00* Test Item Value Reference Range Interpretation Comments Monocytes (%) (Auto) (test code = 5905-5) 6.1 4.4-11.3 [facility] CypressEosinophils (%) (Auto)2019-08-22 06:00:00 * Test Item Value Reference Range Interpretation Comments Eosinophils (%) (Auto) (test code = 713-8) 0.0 0.0-6.0 [facility] CypressBasophils (%) (Auto)2019-08-22 06:00:00* Test Item Value Reference Range Interpretation Comments Basophils (%) (Auto) (test code = 706-2) 0.2 0.0-1.0 [facility] CypressIM GRANULOCYTES %2019-08-22 06:00:00* Test Item Value Reference Range Interpretation Comments IM GRANULOCYTES % (test code = IM GRANULOCYTES %) 0.5 0.0- 1.0 [facility] CypressNeutrophils # (Auto)2019-08-22 06:00:00* Test Item Value Reference Range Interpretation Comments Neutrophils # (Auto) (test code = 751-8) 7.5 2.1-6.9 H [facility] CypressLymphocytes # (Auto)2019-08-22 06:00:00* Test Item Value Reference Range Interpretation Comments Lymphocytes # (Auto) (test code = 32293-3) 1.5 1.0-3.2 [facility] CypressMonocytes # (Auto)2019-08-22 06:00:00* Test Item Value Reference Range Interpretation Comments Monocytes # (Auto) (test code = 742-7) 0.6 0.2-0.8 [facility] CypressEosinophils # (Auto)2019-08-22 06:00:00* Test Item Value Reference Range Interpretation Comments Eosinophils # (Auto) (test code = 711-2) 0.0 0.0-0.4 [facility] CypressBasophils # (Auto)2019-08-22 06:00:00* Test Item Value Reference Range Interpretation Comments Basophils # (Auto) (test code = 704-7) 0.0 0.0-0.1 [facility] CypressAbsolute Immature Granulocyte (auto 2019-08-22 06:00:00* Test Item Value Reference Range Interpretation Comments Absolute Immature Granulocyte (auto (chiquita t code = Absolute Immature Granulocyte (auto) 0.05 0-0.1 [facility] CypressWhite Blood Frvwv6280-12-07 06:00:00* Test Item Value Reference Range Interpretation Comments White Blood Count (test code = 6690-2) 9.60 4.8-10.8 [facility] CypressRed Blood Stagt1656-66-88 06:00:00* Test Item Value Reference Range Interpretation Comments Red Blood Count (test code = 789-8) 3.95 3.6-5.1 [facility] CypressHemoglobin2019-11-10 06:00:00* Test Item Value Reference Range Interpretation Comments Hemoglobin (test code = 35200-8) 11.6 12.0-16.0 L [facility] CypressHematocrit2019-11-10 06:00:00* Test Item Value Reference Range Interpretation Comments Hematocrit (test code = 4544-3) 34.0 34.2-44.1 L [facility] CypressMean Corpuscular Bssvzj7434-25-68 06:00:00* Test Item Value Reference Range Interpretation Comments Mean Corpuscular Volume (test code = 787-2) 86.1 81-99 [facility] CypressMean Corpuscular Rlnhksouvq1581-42-14 06:00:00* Test Item Value Reference Range Interpretation Comments Mean Corpuscular Hemoglobin (test code = 785-6) 29.4 28-32 [facility] CypressMean Corpuscular Hemoglobin Concent 2019-08-22 06:00:00* Test Item Value Reference Range Interpretation Comments Mean Corpuscular Hemoglobin Concent (test code = 786-4) 34.1 31-35 [facility] CypressRed Cell Distribution Hbikb7851-92-45 06:00:00* Test Item Value Reference Range Interpretation Comments Red Cell Distribution Width (test code = 98431-4) 12.7 11.7 -14.4 [facility] CypressPlatelet Kvhcg8111-45-49 06:00:00* Test Item Value Reference Range Interpretation Comments Platelet Count (test code = 777-3) 319 140-360 [facility] CypressNeutrophils (%) (Auto)2019-08-22 06:00:00 * Test Item Value Reference Range Interpretation Comments Neutrophils (%) (Auto) (test code = 43981-1) 77.9 38.7-80.0 [facility] CypressLymphocytes (%) (Auto)2019-08-22 06:00:00 * Test Item Value Reference Range Interpretation Comments Lymphocytes (%) (Auto) (test code = 736-9) 15.3 18.0-39.1 L [facility] CypressMonocytes (%) (Auto)2019-08-22 06:00:00* Test Item Value Reference Range Interpretation Comments Monocytes (%) (Auto) (test code = 5905-5) 6.1 4.4-11.3 [facility] CypressEosinophils (%) (Auto)2019-08-22 06:00:00 * Test Item Value Reference Range Interpretation Comments Eosinophils (%) (Auto) (test code = 713-8) 0.0 0.0-6.0 [facility] CypressBasophils (%) (Auto)2019-08-22 06:00:00* Test Item Value Reference Range Interpretation Comments Basophils (%) (Auto) (test code = 706-2) 0.2 0.0-1.0 [facility] CypressIM GRANULOCYTES %2019-08-22 06:00:00* Test Item Value Reference Range Interpretation Comments IM GRANULOCYTES % (test code = IM GRANULOCYTES %) 0.5 0.0- 1.0 [facility]ressNeutrophils # (Auto)2019-08-22 06:00:00* Test Item Value Reference Range Interpretation Comments Neutrophils # (Auto) (test code = 751-8) 7.5 2.1-6.9 H [facility] CypressLymphocytes # (Auto)2019-08-22 06:00:00* Test Item Value Reference Range Interpretation Comments Lymphocytes # (Auto) (test code = 15865-0) 1.5 1.0-3.2 [facility] CypressMonocytes # (Auto)2019-08-22 06:00:00* Test Item Value Reference Range Interpretation Comments Monocytes # (Auto) (test code = 742-7) 0.6 0.2-0.8 [facility]ressEosinophils # (Auto)2019-08-22 06:00:00* Test Item Value Reference Range Interpretation Comments Eosinophils # (Auto) (test code = 711-2) 0.0 0.0-0.4 [facility]ressBasophils # (Auto)2019-08-22 06:00:00* Test Item Value Reference Range Interpretation Comments Basophils # (Auto) (test code = 704-7) 0.0 0.0-0.1 [facility] CypressAbsolute Immature Granulocyte (auto 2019-08-22 06:00:00* Test Item Value Reference Range Interpretation Comments Absolute Immature Granulocyte (auto (chiquita t code = Absolute Immature Granulocyte (auto) 0.05 0-0.1 [facility] vancomycin level at trough (mass/volume)2019-08-22 04:43:00* Test Item Value Reference Range Interpretation Comments Vancomycin Level Trough (test code = 4092-3) 4.5 5.0-10.0 [facility] HospitalHOULD[facility] RIGHT 1 [id number] 19:34:00 [place] [address] Patient Name: YOLETTE URIBE MR #: [id number] : 1975 Age/Sex: 44/F Req #: [id number] Adm Physician: JAZLYN ARZATE MD Ordered by: Aby Urban HOME THEATRE TECHNICIAN Report #: [id number] Location: MED/SURG3 Room/Bed: 289 Procedure: [id number] DX/DUSTIN ULDER RIGHT 1 VIEW Exam Date: [...] JEMAL on 08/20/191935 COPY TO: ABY URBAN HOME THEATRE TECHNICIAN CT BRAIN [id number] 19:29:00 [place] [address] Patient Name: YOLETTE URIBE MR #: [id number] : 1975 Age/Sex: 44/F Req #: [id number] Adm Physician: JAZLYN ARZATE MD Ordered by: Aby Urban HOME THEATRE TECHNICIAN Report #: [id number] Location: MED/SURG3 Room/Bed: [facility] Procedure: [id number] CT/CT BRAIN WO Exam Date: 08/20/19 Exam [...] URBAN NP Bacteria identification in wound by kobrknv3036-92-69 08:10:00* Test Item Value Reference Range Interpretation Comments Wound Culture (test code = 6462-6) STAPHYLOCOCCUS AUREUS-MRSA [facility] Bnqmosjzb2069-18-29 04:25:00* Test Item Value Reference Range Interpretation Comments Total Bilirubin (test code = 1975-2) 0.2 0.2-1.2 [facility] CypressAspartate Amino Transf (AST/SGOT) 2019-08-20 04:25:00* Test Item Value Reference Range Interpretation Comments Aspartate Amino Transf (AST/SGOT) (test code = Aspartate Amino Transf (AST/SGOT)) 15 5-34 [facility] CypressAlanine Aminotransferase (ALT/SGPT) 2019-08-20 04:25:00* Test Item Value Reference Range Interpretation Comments Alanine Aminotransferase (ALT/SGPT) (test code = 1742-6) 10 0-55 [facility] CypressTotal Hpjsxzq4841-25-84 04:25:00* Test Item Value Reference Range Interpretation Comments Total Protein (test code = 2885-2) 6.5 6.5-8.1 [facility] CypressAlbumin2019-11-08 04:25:00* Test Item Value Reference Range Interpretation Comments Albumin (test code = 1751-7) 2.9 3.5-5.0 L [facility] CypressGlobulin2019-11-08 04:25:00* Test Item Value Reference Range Interpretation Comments Globulin (test code = 62268-0) 3.6 2.3-3.5 H [facility] CypressAlbumin/Globulin Jflow5064-85-69 04:25:00 * Test Item Value Reference Range Interpretation Comments Albumin/Globulin Ratio (test code = 1759-0) 0.8 0.8-2.0 [facility] CypressAlkaline Mvsdyikfndz5550-88-30 04:25:00* Test Item Value Reference Range Interpretation Comments Alkaline Phosphatase (test code = 6768-6) 121 40-150 [facility]To[facility] Cpfumchwn9875-47-03 04:25:00* Test Item Value Reference Range Interpretation Comments Total Bilirubin (test code = 1975-2) 0.2 0.2-1.2 [facility] CypressAspartate Amino Transf (AST/SGOT) 2019-08-20 04:25:00* Test Item Value Reference Range Interpretation Comments Aspartate Amino Transf (AST/SGOT) (test code = Aspartate Amino Transf (AST/SGOT)) 15 5-34 [facility] CypressAlanine Aminotransferase (ALT/SGPT) 2019-08-20 04:25:00* Test Item Value Reference Range Interpretation Comments Alanine Aminotransferase (ALT/SGPT) (test code = 1742-6) 10 0-55 [facility] Jcidbos8795-39-53 04:25:00* Test Item Value Reference Range Interpretation Comments Total Protein (test code = 2885-2) 6.5 6.5-8.1 [facility] CypressAlbumin2019-11-08 04:25:00* Test Item Value Reference Range Interpretation Comments Albumin (test code = 1751-7) 2.9 3.5-5.0 L [facility] CypressGlobulin2019-11-08 04:25:00* Test Item Value Reference Range Interpretation Comments Globulin (test code = 80100-6) 3.6 2.3-3.5 H [facility] CypressAlbumin/Globulin Xbfxq7809-51-97 04:25:00 * Test Item Value Reference Range Interpretation Comments Albumin/Globulin Ratio (test code = 1759-0) 0.8 0.8-2.0 [facility] CypressAlkaline Lbvofbodntl2418-58-10 04:25:00* Test Item Value Reference Range Interpretation Comments Alkaline Phosphatase (test code = 6768-6) 121 40-150 [facility] CypressTotal Haqbmkzca8630-17-97 04:25:00* Test Item Value Reference Range Interpretation Comments Total Bilirubin (test code = 1975-2) 0.2 0.2-1.2 [facility] CypressAspartate Amino Transf (AST/SGOT) 2019-08-20 04:25:00* Test Item Value Reference Range Interpretation Comments Aspartate Amino Transf (AST/SGOT) (test code = Aspartate Amino Transf (AST/SGOT)) 15 5-34 [facility] CypressAlanine Aminotransferase (ALT/SGPT) 2019-08-20 04:25:00* Test Item Value Reference Range Interpretation Comments Alanine Aminotransferase (ALT/SGPT) (test code = 1742-6) 10 0-55 [facility] CypressTotal Cnbpzzq0547-33-79 04:25:00* Test Item Value Reference Range Interpretation Comments Total Protein (test code = 2885-2) 6.5 6.5-8.1 [facility] CypressAlbumin2019-11-08 04:25:00* Test Item Value Reference Range Interpretation Comments Albumin (test code = 1751-7) 2.9 3.5-5.0 L [facility] CypressGlobulin2019-11-08 04:25:00* Test Item Value Reference Range Interpretation Comments Globulin (test code = 99189-6) 3.6 2.3-3.5 H [facility] CypressAlbumin/Globulin Bvjfw7817-21-08 04:25:00 * Test Item Value Reference Range Interpretation Comments Albumin/Globulin Ratio (test code = 1759-0) 0.8 0.8-2.0 [facility] CypressAlkaline Fnnppyrqrek7905-32-83 04:25:00* Test Item Value Reference Range Interpretation Comments Alkaline Phosphatase (test code = 6768-6) 121 40-150 [facility] CypressCT THORACIC SPINE E1160-00-66 12:56:00 [facility] [address] [place] [address] Patient Name: YOLETTE URIBE MR #: [id number] : 1975 Age/Sex: 44/F Req #: [id number] Adm Physician: Ordered by: CROW CARLOS DO Report #: [id number] Location: ER Room/Bed: Procedure: [id number] CT/CT THORACIC SPINE W Exam Date: 08/19/19 [...] JEMAL on 08/19/19 1316 COPY TO: CROW CARLOS, CT LUMBAR SPINE [id number] 12:56:00 [facility] [address] [place] [address] Patient Name: YOLETTE URIBE MR #: [id number] : 1975 Age/Sex: 44/F Req #: [id number] Adm Physician: Ordered by: CROW CARLOS DO Report #: [id number] Location: ER Room/Bed: Procedure: [id number] CT/CT LUMBAR SPINE WO Exam Date: 08/19/19 [...] 1:16 PM Dictated By: JEANNETTE RESENDIZ MD 15 Transcribed By: JEMAL on 08/19/191315 COPY TO: CROW BOSTON DO Creatine Kinase [id number] 10:13:00* Test Item Value Reference Range Interpretation Comments Creatine Kinase MB (test code = 25749-9) < 1.00 0-4.3 [place] [address]019-11-07 10:13:00* Test Item Value Reference Range Interpretation Comments Troponin I (test code = 31940-9) < 0.05 0.0-0.40 [facility] CypressCreatine Kinase QC9340-85-55 10:13:00* Test Item Value Reference Range Interpretation Comments Creatine Kinase MB (test code = 80991-8) < 1.00 0-4.3 [place] 67568019-11-07 10:13:00* Test Item Value Reference Range Interpretation Comments Troponin I (test code = 40870-3) < 0.05 0.0-0.40 [facility] CypressCreatine Kinase [id number] 10:13:00* Test Item Value Reference Range Interpretation Comments Creatine Kinase MB (test code = 47241-0) < 1.00 0-4.3 [place] [address]019-11-07 10:13:00* Test Item Value Reference Range Interpretation Comments Troponin I (test code = 29378-4) < 0.05 0.0-0.40 [facility] CypressCreatine Cgtrax9685-32-68 09:55:00* Test Item Value Reference Range Interpretation Comments Creatine Kinase (test code = 2157-6) 24 29-168 L [facility] CypressCreatine Vmkevy5550-56-53 09:55:00* Test Item Value Reference Range Interpretation Comments Creatine Kinase (test code = 2157-6) 24 29-168 L [facility] CypressCreatine Htakap3194-64-47 09:55:00* Test Item Value Reference Range Interpretation Comments Creatine Kinase (test code = 2157-6) 24 29-168 L [facility] CypressLactic Acid Fzuyl6353-95-98 09:47:00* Test Item Value Reference Range Interpretation Comments Lactic Acid Level (test code = Lactic Acid Level) 1.6 0.5- 2.0 [facility] CypressLactic Acid Hnnfe7603-87-67 09:47:00* Test Item Value Reference Range Interpretation Comments Lactic Acid Level (test code = Lactic Acid Level) 1.6 0.5- 2.0 [facility] CypressLactic Acid Thybt9402-20-24 09:47:00* Test Item Value Reference Range Interpretation Comments Lactic Acid Level (test code = Lactic Acid Level) 1.6 0.5- 2.0 [facility] CypressLactic Acid Ybjeb7303-69-53 09:47:00* Test Item Value Reference Range Interpretation Comments Lactic Acid Level (test code = Lactic Acid Level) 1.6 0.5- 2.0 [facility] CypressUrine Opiates Ezeizr5111-43-24 09:39:00* Test Item Value Reference Range Interpretation Comments Urine Opiates Screen (test code = 53069-4) NEGATIVE NEGATIVE ALL TESTS PERFORMED MANUALLY ON MoPub TOX/SEE TESTHCA [facility] CypressUrine Barbiturates Emhmnj1841-52-25 09:39:00* Test Item Value Reference Range Interpretation Comments Urine Barbiturates Screen (test code = 685259143) NEGATIVE NEGA TIVE [facility] CypressUrine Phencyclidine Hcklso8148-31-33 09:39:00* Test Item Value Reference Range Interpretation Comments Urine Phencyclidine Screen (test code = 71619-9) NEGATIVE NEGAT ЕЛЕНА [facility] CypressUrine Amphetamines Hfbadd5047-28-60 09:39:00* Test Item Value Reference Range Interpretation Comments Urine Amphetamines Screen (test code = 97623-0) NEGATIVE NEGATI VE [facility] CypressUrine Methamphetamines Wvtnjb0004-56-10 09:39:00* Test Item Value Reference Range Interpretation Comments Urine Methamphetamines Screen (test code = Urine Metha mphetamines Screen) NEGATIVE NEGATIVE [facility] CypressUrine Benzodiazepines Ticjzx7706-97-62 09:39:00* Test Item Value Reference Range Interpretation Comments Urine Benzodiazepines Screen (test code = 44018-1) NEGATIVE NEG ATIVE [facility] CypressUrine Cocaine Hqwpfg2132-46-68 09:39:00* Test Item Value Reference Range Interpretation Comments Urine Cocaine Screen (test code = 3398-5) NEGATIVE NEGATIVE [facility] CypressUrine Cannabinoids Htaxsf1505-35-63 09:39:00* Test Item Value Reference Range Interpretation Comments Urine Cannabinoids Screen (test code = 95192-7) NEGATIVE NEGATI VE THESE RESULTS ARE FOR MEDICAL TREATMENT ONLYTHIS REPORT CONTAINS UNCONFIR MED SCREENING RESULTS*POSITIVE RESULTS WILL BE CONFIRMED BY REFERENCE LAB UPON R EQUEST CUT-OFFDRUG CLASS CONCENTRATION ng/mLAmphetamines 1000Methamphetamines 1000Cocaine 300Opiate 300Phencyc lidine 25Cannabinoid 50Barbiturates 300Benzodiazepine 300Methadone 300[facility] CypressUrine Methadone Zbapcb2199-72-12 09:39:00* Test Item Value Reference Range Interpretation Comments Urine Methadone Screen (test code = 32609-0) NEGATIVE NEGATIVE THESE RESULTS ARE FOR MEDICAL TREATMENT ONLYTHIS REPORT CONTAINS UNCONFIR MED SCREENING RESULTS*POSITIVE RESULTS WILL BE CONFIRMED BY REFERENCE LAB UPON R EQUEST CUT-OFFDRUG CLASS CONCENTRATION ng/mLAmphetamines 1000Methamphetamines 1000Cocaine Metabolite 300Opiate 300Phencyc lidine 25Cannabinoid 50Barbiturates 300Benzodiazepine 300Methadone 300[facility] CypressUrine Raud6321-02-72 09:39:00* Test Item Value Reference Range Interpretation Comments Urine Test (test code = 2106-3) NEGATIVE NEGATIVE [facility] CypressUrine Opiates Jnttce3771-47-66 09:39:00* Test Item Value Reference Range Interpretation Comments Urine Opiates Screen (test code = 44942-4) NEGATIVE NEGATIVE ALL TESTS PERFORMED MANUALLY ON [employer] TOX/SEE TESTHCA [facility] CypressUrine Barbiturates Hiruyx0535-78-57 09:39:00* Test Item Value Reference Range Interpretation Comments Urine Barbiturates Screen (test code = 047381978) NEGATIVE NEGA TIVE [facility] CypressUrine Phencyclidine Tuvucm4330-02-12 09:39:00* Test Item Value Reference Range Interpretation Comments Urine Phencyclidine Screen (test code = 20111-7) NEGATIVE NEGAT ЕЛЕНА [facility] CypressUrine Amphetamines Inrtcw1235-40-70 09:39:00* Test Item Value Reference Range Interpretation Comments Urine Amphetamines Screen (test code = 98320-5) NEGATIVE NEGATI VE [facility] CypressUrine Methamphetamines Zanses1883-11-49 09:39:00* Test Item Value Reference Range Interpretation Comments Urine Methamphetamines Screen (test code = Urine Metha mphetamines Screen) NEGATIVE NEGATIVE [facility] CypressUrine Benzodiazepines Dpvcwk6491-29-91 09:39:00* Test Item Value Reference Range Interpretation Comments Urine Benzodiazepines Screen (test code = 29677-9) NEGATIVE NEG ATIVE [facility] CypressUrine Cocaine Xpaffl3319-01-88 09:39:00* Test Item Value Reference Range Interpretation Comments Urine Cocaine Screen (test code = 3398-5) NEGATIVE NEGATIVE [facility] CypressUrine Cannabinoids Oxykfo4470-90-70 09:39:00* Test Item Value Reference Range Interpretation Comments Urine Cannabinoids Screen (test code = 63860-9) NEGATIVE NEGATI VE THESE RESULTS ARE FOR MEDICAL TREATMENT ONLYTHIS REPORT CONTAINS UNCONFIR MED SCREENING RESULTS*POSITIVE RESULTS WILL BE CONFIRMED BY REFERENCE LAB UPON R EQUEST CUT-OFFDRUG CLASS CONCENTRATION ng/mLAmphetamines 1000Methamphetamines 1000Cocaine 300Opiate 300Phencyc lidine 25Cannabinoid 50Barbiturates 300Benzodiazepine 300Methadone 300[facility]landUrine Methadone Subnhr8407-26-41 09:39:00* Test Item Value Reference Range Interpretation Comments Urine Methadone Screen (test code = 35702-4) NEGATIVE NEGATIVE THESE RESULTS ARE FOR MEDICAL TREATMENT ONLYTHIS REPORT CONTAINS UNCONFIR MED SCREENING RESULTS*POSITIVE RESULTS WILL BE CONFIRMED BY REFERENCE LAB UPON R EQUEST CUT-OFFDRUG CLASS CONCENTRATION ng/mLAmphetamines 1000Methamphetamines 1000Cocaine Metabolite 300Opiate 300Phencyc lidine 25Cannabinoid 50Barbiturates 300Benzodiazepine 300Methadone 300[facility] CypressUrine Cjoi5862-94-05 09:39:00* Test Item Value Reference Range Interpretation Comments Urine Test (test code = 2106-3) NEGATIVE NEGATIVE [facility] CypressUrine Opiates Gvnqhe6330-06-51 09:39:00* Test Item Value Reference Range Interpretation Comments Urine Opiates Screen (test code = 80443-6) NEGATIVE NEGATIVE ALL TESTS PERFORMED MANUALLY ON MoPub TOX/SEE TESTHCA [facility] CypressUrine Barbiturates Dbohgc5318-17-01 09:39:00* Test Item Value Reference Range Interpretation Comments Urine Barbiturates Screen (test code = 319436331) NEGATIVE NEGA TIVE [facility] CypressUrine Phencyclidine Rilakc4141-86-89 09:39:00* Test Item Value Reference Range Interpretation Comments Urine Phencyclidine Screen (test code = 24373-8) NEGATIVE NEGAT ЕЛЕНА [facility] CypressUrine Amphetamines Euahdt1748-39-02 09:39:00* Test Item Value Reference Range Interpretation Comments Urine Amphetamines Screen (test code = 12226-7) NEGATIVE NEGATI VE [facility] CypressUrine Methamphetamines Hfrydj2717-40-04 09:39:00* Test Item Value Reference Range Interpretation Comments Urine Methamphetamines Screen (test code = Urine Metha mphetamines Screen) NEGATIVE NEGATIVE [facility] CypressUrine Benzodiazepines Feiwfb4676-33-44 09:39:00* Test Item Value Reference Range Interpretation Comments Urine Benzodiazepines Screen (test code = 36976-5) NEGATIVE NEG ATIVE [facility] CypressUrine Cocaine Josgcy7768-18-24 09:39:00* Test Item Value Reference Range Interpretation Comments Urine Cocaine Screen (test code = 3398-5) NEGATIVE NEGATIVE [facility] CypressUrine Cannabinoids Ujlegv6796-18-79 09:39:00* Test Item Value Reference Range Interpretation Comments Urine Cannabinoids Screen (test code = 60291-0) NEGATIVE NEGATI VE THESE RESULTS ARE FOR MEDICAL TREATMENT ONLYTHIS REPORT CONTAINS UNCONFIR MED SCREENING RESULTS*POSITIVE RESULTS WILL BE CONFIRMED BY REFERENCE LAB UPON R EQUEST CUT-OFFDRUG CLASS CONCENTRATION ng/mLAmphetamines 1000Methamphetamines 1000Cocaine 300Opiate 300Phencyc lidine 25Cannabinoid 50Barbiturates 300Benzodiazepine 300Methadone 300[facility] CypressUrine Methadone Hmagzh9975-16-58 09:39:00* Test Item Value Reference Range Interpretation Comments Urine Methadone Screen (test code = 14388-2) NEGATIVE NEGATIVE THESE RESULTS ARE FOR MEDICAL TREATMENT ONLYTHIS REPORT CONTAINS UNCONFIR MED SCREENING RESULTS*POSITIVE RESULTS WILL BE CONFIRMED BY REFERENCE LAB UPON R EQUEST CUT-OFFDRUG CLASS CONCENTRATION ng/mLAmphetamines 1000Methamphetamines 1000Cocaine Metabolite 300Opiate 300Phencyc lidine 25Cannabinoid 50Barbiturates 300Benzodiazepine 300Methadone 300[facility] CypressUrine Srqi0586-83-62 09:39:00* Test Item Value Reference Range Interpretation Comments Urine Test (test code = 2106-3) NEGATIVE NEGATIVE [facility] CypressUrine Opiates Rdaeom4242-81-49 09:39:00* Test Item Value Reference Range Interpretation Comments Urine Opiates Screen (test code = 84180-9) NEGATIVE NEGATIVE ALL TESTS PERFORMED MANUALLY ON MoPub TOX/SEE TESTHCA [facility] CypressUrine Barbiturates Mdoexk4485-39-20 09:39:00* Test Item Value Reference Range Interpretation Comments Urine Barbiturates Screen (test code = 141655270) NEGATIVE NEGA TIVE [facility] CypressUrine Phencyclidine Shyxfy3795-18-39 09:39:00* Test Item Value Reference Range Interpretation Comments Urine Phencyclidine Screen (test code = 35726-2) NEGATIVE NEGAT ЕЛЕНА [facility] CypressUrine Amphetamines Gmayty4300-08-93 09:39:00* Test Item Value Reference Range Interpretation Comments Urine Amphetamines Screen (test code = 94234-5) NEGATIVE NEGATI VE [facility] CypressUrine Methamphetamines Yitogz5757-96-63 09:39:00* Test Item Value Reference Range Interpretation Comments Urine Methamphetamines Screen (test code = Urine Metha mphetamines Screen) NEGATIVE NEGATIVE [facility] CypressUrine Benzodiazepines Xkjado1928-25-08 09:39:00* Test Item Value Reference Range Interpretation Comments Urine Benzodiazepines Screen (test code = 40126-3) NEGATIVE NEG ATIVE [facility] CypressUrine Cocaine Ehfzjj7300-11-89 09:39:00* Test Item Value Reference Range Interpretation Comments Urine Cocaine Screen (test code = 3398-5) NEGATIVE NEGATIVE [facility] CypressUrine Cannabinoids Ejnrpo0558-36-10 09:39:00* Test Item Value Reference Range Interpretation Comments Urine Cannabinoids Screen (test code = 43836-7) NEGATIVE NEGATI VE THESE RESULTS ARE FOR MEDICAL TREATMENT ONLYTHIS REPORT CONTAINS UNCONFIR MED SCREENING RESULTS*POSITIVE RESULTS WILL BE CONFIRMED BY REFERENCE LAB UPON R EQUEST CUT-OFFDRUG CLASS CONCENTRATION ng/mLAmphetamines 1000Methamphetamines 1000Cocaine 300Opiate 300Phencyc lidine 25Cannabinoid 50Barbiturates 300Benzodiazepine 300Methadone 300[facility] CypressUrine Methadone Txvgxm5142-20-53 09:39:00* Test Item Value Reference Range Interpretation Comments Urine Methadone Screen (test code = 96021-1) NEGATIVE NEGATIVE THESE RESULTS ARE FOR MEDICAL TREATMENT ONLYTHIS REPORT CONTAINS UNCONFIR MED SCREENING RESULTS*POSITIVE RESULTS WILL BE CONFIRMED BY REFERENCE LAB UPON R EQUEST CUT-OFFDRUG CLASS CONCENTRATION ng/mLAmphetamines 1000Methamphetamines 1000Cocaine Metabolite 300Opiate 300Phencyc lidine 25Cannabinoid 50Barbiturates 300Benzodiazepine 300Methadone 300[facility] CypressUrine Gqbl8799-12-65 09:39:00* Test Item Value Reference Range Interpretation Comments Urine Test (test code = 2106-3) NEGATIVE NEGATIVE [facility] CypressBlood zfaxlgz5455-18-66 08:50:00* Test Item Value Reference Range Interpretation Comments Blood Culture (test code = 22812029) NO GROWTH AFTER 5 DAYS, FINAL REPORT [facility] CypressUrine human chorionic gonadotropin (hCG) ksmsqyggt1462-57-37 07:52:00* Test Item Value Reference Range Interpretation Comments Urine Test (test code = 2106-3) NEGATIVE NEGATIVE [facility] CypressBedside Ubomupk2762-28-43 02:32:00* Test Item Value Reference Range Interpretation Comments Bedside Glucose (test code = 66232-1) 391 70-120 H Meter ID: [id number] [facility] CypressWhite Blood Count 2019-08-17 01:16:00* Test Item Value Reference Range Interpretation Comments White Blood Count (test code = 6690-2) 11.54 4.8-10.8 H [facility] CypressRed Blood Thuzj8100-91-29 01:16:00* Test Item Value Reference Range Interpretation Comments Red Blood Count (test code = 789-8) 4.51 3.6-5.1 [facility] CypressHemoglobin2019-11-05 01:16:00* Test Item Value Reference Range Interpretation Comments Hemoglobin (test code = 56322-0) 13.3 12.0-16.0 [facility] CypressHematocrit2019-11-05 01:16:00* Test Item Value Reference Range Interpretation Comments Hematocrit (test code = 4544-3) 38.4 34.2-44.1 [facility] CypressMean Corpuscular Iwzsan0150-19-42 01:16:00* Test Item Value Reference Range Interpretation Comments Mean Corpuscular Volume (test code = 787-2) 85.1 81-99 [facility] CypressMean Corpuscular Ghkpytwtoe8034-95-50 01:16:00* Test Item Value Reference Range Interpretation Comments Mean Corpuscular Hemoglobin (test code = 785-6) 29.5 28-32 [facility] CypressMean Corpuscular Hemoglobin Concent 2019-08-17 01:16:00* Test Item Value Reference Range Interpretation Comments Mean Corpuscular Hemoglobin Concent (test code = 786-4) 34.6 31-35 [facility] CypressRed Cell Distribution Hfvoy9027-34-17 01:16:00* Test Item Value Reference Range Interpretation Comments Red Cell Distribution Width (test code = 02398-5) 12.6 11.7 -14.4 [facility] CypressPlatelet Qmkkq8899-13-09 01:16:00* Test Item Value Reference Range Interpretation Comments Platelet Count (test code = 777-3) 227 140-360 [facility] CypressNeutrophils (%) (Auto)2019-08-17 01:16:00 * Test Item Value Reference Range Interpretation Comments Neutrophils (%) (Auto) (test code = 17977-7) 69.9 38.7-80.0 [facility] CypressLymphocytes (%) (Auto)2019-08-17 01:16:00 * Test Item Value Reference Range Interpretation Comments Lymphocytes (%) (Auto) (test code = 736-9) 22.5 18.0-39.1 [facility] CypressMonocytes (%) (Auto)2019-08-17 01:16:00* Test Item Value Reference Range Interpretation Comments Monocytes (%) (Auto) (test code = 5905-5) 6.3 4.4-11.3 [facility]ressEosinophils (%) (Auto)2019-08-17 01:16:00 * Test Item Value Reference Range Interpretation Comments Eosinophils (%) (Auto) (test code = 713-8) 0.7 0.0-6.0 [facility]ressBasophils (%) (Auto)2019-08-17 01:16:00* Test Item Value Reference Range Interpretation Comments Basophils (%) (Auto) (test code = 706-2) 0.3 0.0-1.0 [facility] CypressIM GRANULOCYTES %2019-08-17 01:16:00* Test Item Value Reference Range Interpretation Comments IM GRANULOCYTES % (test code = IM GRANULOCYTES %) 0.3 0.0- 1.0 [facility]ressNeutrophils # (Auto)2019-08-17 01:16:00* Test Item Value Reference Range Interpretation Comments Neutrophils # (Auto) (test code = 751-8) 8.1 2.1-6.9 H [facility] CypressLymphocytes # (Auto)2019-08-17 01:16:00* Test Item Value Reference Range Interpretation Comments Lymphocytes # (Auto) (test code = 37284-1) 2.6 1.0-3.2 [facility]ressMonocytes # (Auto)2019-08-17 01:16:00* Test Item Value Reference Range Interpretation Comments Monocytes # (Auto) (test code = 742-7) 0.7 0.2-0.8 [facility]ressEosinophils # (Auto)2019-08-17 01:16:00* Test Item Value Reference Range Interpretation Comments Eosinophils # (Auto) (test code = 711-2) 0.1 0.0-0.4 [facility]ressBasophils # (Auto)2019-08-17 01:16:00* Test Item Value Reference Range Interpretation Comments Basophils # (Auto) (test code = 704-7) 0.0 0.0-0.1 [facility] CypressAbsolute Immature Granulocyte (auto 2019-08-17 01:16:00* Test Item Value Reference Range Interpretation Comments Absolute Immature Granulocyte (auto (chiquita t code = Absolute Immature Granulocyte (auto) 0.04 0-0.1 [facility] Phnzn2405-92-54 00:34:00* Test Item Value Reference Range Interpretation Comments Sodium Level (test code = 2951-2) 132 136-145 L [facility]ressPotassium Tkrbx9128-45-05 00:34:00* Test Item Value Reference Range Interpretation Comments Potassium Level (test code = 2823-3) 4.0 3.5-5.1 [facility] CypressChloride Trafq3419-05-95 00:34:00* Test Item Value Reference Range Interpretation Comments Chloride Level (test code = 2075-0) 93 98-107 L [facility] CypressCarbon Dioxide Xaluz9286-02-50 00:34:00* Test Item Value Reference Range Interpretation Comments Carbon Dioxide Level (test code = 2028-9) 23 22-29 [facility] CypressAnion Gyj2621-02-90 00:34:00* Test Item Value Reference Range Interpretation Comments Anion Gap (test code = 52864-9) 20.0 8-16 H [facility] CypressBlood Urea Eerlnysp0331-53-81 00:34:00* Test Item Value Reference Range Interpretation Comments Blood Urea Nitrogen (test code = 3094-0) 7 - [facility] CypressCreatinine2019-11-05 00:34:00* Test Item Value Reference Range Interpretation Comments Creatinine (test code = 2160-0) 0.93 0.57-1.11 [facility]ressBUN/Creatinine Fmgkz9514-11-94 00:34:00* Test Item Value Reference Range Interpretation Comments BUN/Creatinine Ratio (test code = 3097-3) 8 04-06 [facility] CypressEstimat Glomerular Filtration Rate 2019-08-17 00:34:00* Test Item Value Reference Range Interpretation Comments Estimat Glomerular Filtration Rate (test code = 658829792) > 60 >60 Ranges were taken from the National Kidney Disease Education Program and the [facility] Kid[facility] Foundation literature.Reference ranges:60 or greater: Odsugw45-79 ( for 3 consecutive months): Chronic kidney disease 15 or less: Kidney failureH[facility] CypressGlucose Okcex8605-63-32 00:34:00* Test Item Value Reference Range Interpretation Comments Glucose Level (test code = ZWI5035) 684 74-118 HH Results repeated and called to JOJO ROSA RN at 0033 on 08/17/[address]. Read back and verified.[facility] CypressCalcium Gktxk3368-07-33 00:34:00* Test Item Value Reference Range Interpretation Comments Calcium Level (test code = 41607-7) 10.0 8.4-10.2 [facility] CypressDIABETIC FOOT TNEZ4051-66-45 11:47:47 Ena Stevens PA 08/14/2019 7:30 PMDiabetic Foot Exam was performed at 08/14/2019 11:47 AM. Right foot sensation is normal, right foot pulses are isabel l, right foot appearance is normal. Left foot sensation is normal, left foot p ulses are normal, left foot appearance is normal. [facility] Tgsar1398-72-08 20:41:00* Test Item Value Reference Range Interpretation Comments Hepatitis C Virus (HCV) Antibody (test code = 56151-7) Negative Negative Hep B Surface Ag (test code = 5196-1) Negative Negative Hep A Vir Ab IgM (test code = 11073-7) Negative Negative Hep B Core Ab IgM (test code = 22642-5) Negative Negative Lab Interpretation (test code = 70978-0) Normal [facility] CenterTSH [Thyroid Stimulating Hormone]2019-07-28 20:02:00* Test Item Value Reference Range Interpretation Comments TSH (test code = 53531232) 1.41 0.57- 3.74 uIU/mL If , please see the following reference ranges (not verified by lab): 1st Trimester: 0.05 -3.70 uIU/mL2nd Trimester: 0.31 -4.35 uIU/mL3rd Trimester: 0.41 - 5.18 uIU/mL Lab Interpretation (test code = 61748-5) [facility] CenterHIV-1/HIV-2 Routine Sloxdgbiq8898-00-57 13:44:00* Test Item Value Reference Range Interpretation Comments HIV Ag/Ab Combo (test code = 91773-8) Negative Negative Lab Interpretation (test code = 03535-7) Normal [facility] CenterSyphilis Screen for Idzzbetxs4926-11-76 09:20:00* Test Item Value Reference Range Interpretation Comments TPA (test code = 53004-5) Negative Negative, Equivocal Final Report (test code = 68704-1) Negative Negative Lab Interpretation (test code = 10932-8) Normal [facility] CenterLipid Scgigqh1760-14-92 08:06:00* Test Item Value Reference Range Interpretation Comments Cholesterol (test code = 2093-3) 221.0 mg/dL <=200.0 H Triglyceride (test code = 24454125) 308 mg/dL <150 H HDL (test code = 2085-9) 41.0 mg/dL See Reference Range Narrative . LDL (test code = 13117-2) 118 mg/dL <100 H Op timal: < 100.0 mg/dLNear Optimal: 120-129 mg/dLBorderline: 130-159 mg/dLHigh: 160-189 mg/dLVery High: >=190 mg/dL Patient Fasting? (test code = 19676385) Yes Lab Interpretation (test code = 59725-8) [facility] Ggplixp6672-80-63 08:06:00* Test Item Value Reference Range Interpretation Comments Bilirubin, Total (test code = 2885-2) 0.3 mg/dL 0.2-1.2 Alkaline Phosphatase (test code = 70406553) 93 U/L 34-104 AST (test code = 78203649) 14 U/L 13-39 Direct Bilirubin (test code = 1968-7) 0.0 mg/dL 0-0.2 ALT (test code = 81947712) 13 U/L 7-52 Albumin (test code = 43544-2) 4.3 g/dL 3.7-5.3 Lab Interpretation (test code = 03891-8) Normal [facility] CenterCBC/Skmn8559-92-85 07:27:00* Test Item Value Reference Range Interpretation [...] 33.3 g/dL 32-36 RDW (test code = 84579-5) 39.8 fL 36.4-46.3 Platelet (test code = 777-3) 240 K/uL 150-400 Mean Platelet Volume (test code = 83552-2) 11.6 fL 9.4-12.4 Percent NRBC (test code = 42560289) 0.0 % Neutrophil (test code = 770-8) 52.2 % 34-70 Lymphs (test code = 736-9) 37.9 % 20-50 Monocytes (test code = 5905-5) 8.4 % 5-12 Eos (test code = 713-8) 0.9 % 0.7-5 Basos (test code = 706-2) 0.6 % 0.1-1.2 Immature Granulocytes (test code = 54839848) 0.0 % 0-0.5 Neutrophils (Absolute) (test code = 05068103) 2.41 K/uL 1.56-6.1 3 Lymphs (Absolute) (test code = 79855833) 1.75 K/uL 1.18-3.74 Monocytes(Absolute) (test code = 67879622) 0.39 K/uL 0.24-0.36 H Eos (Absolute) (test code = 26728750) 0.04 K/uL 0.04-0.36 Baso (Absolute) (test code = 83799375) 0.03 K/uL 0.01-0.08 Immature Grans (Abs) (test code = 01704430) 0.00 K/uL 0-0.03 Absolute NRBC (test code = 69300357) 0.00 K/uL Lab Interpretation (test code = 90345-7) [facility] DNA Jcfmbfxuswmxb5060-43-91 18:07:00* Test Item Value Reference Range Interpretation Comments Chlamydia trachomatis (test code = 89777-7) Negative Negative N. gonorrhoeae (test code = 36267-4) Negative Negative KEO (test code = KEO) This test utilizes Quantcast A ptima Combo 2 Assay for target amplification of rRNA for the qualitative detection of Chlamydia trachomatis and Neisseria gonorrhoeae. Lab Interpretation (test code = 29968-3) Normal [facility] Drug Xpvmnp5704-60-86 15:00:00* Test Item Value Reference Range Interpretation Comments Opiate, Ur (test code = 64230-5) Positive Negative A Calibrated Standard: Morphine Positive if urine level > or = 300 ng/dL Amphetamine (test code = 42628-6) Negative Negative Calibrated Standard: D- Methamphetamine Positive if urine level > or = 1000 ng/mL Barbiturate (test code = 89110-3) Negative Negative Calibrated Standard: Secobarbital Positive if urine level is > or = 200 ng/mL Benzodiazepine (test code = 43440-2) Negative Negative Calibrated Standard: Lormethazepam Positive if urine level is > or = 200 ng/mL Cocaine (test code = 26140-1) Negative Negative Calibrated Standard: Benzoylecgonine Positive if urine level > or = 300 ng/dL PCP (test code = 97988-5) Negative Negative C alibrated Standard: Phencyclidine Positive if urine level > or = 25 ng/dL Cannabinoid (test code = 17916-4) Negative Negative Calibrated Standard: 11 nor-delta(9)-THC carboxylic acid Positive if urine level > or = 50 ng/mL Lab Interpretation (test code = 20929-9) Abnormal [facility] BMP - In Lab (STAT)2019-07-27 14:01:00* Test Item Value Reference Range Interpretation Comments Hold Specimen (test code = 99161772) Complete [facility] Yylmnoc2976-41-93 23:29:00* Test Item Value Reference Range Interpretation Comments Bedside Glucose (test code = 31316-5) 300 70-120 H Meter ID: [id number] Glucose 2019-06-17 23:29:00* Test Item Value Reference Range Interpretation Comments Bedside Glucose (test code = 66103-1) 300 70-120 H Meter ID: [id number] [facility] CypressBlood Urea Nitrogen 2019-06-17 22:47:00* Test Item Value Reference Range Interpretation Comments Blood Urea Nitrogen (test code = 3094-0) 05-07 [facility]ressBUN/Creatinine Clzfz5356-63-61 22:47:00* Test Item Value Reference Range Interpretation Comments BUN/Creatinine Ratio (test code = 3097-3) 04-06 [facility] CypressBlood Urea Cuoejztj8081-76-20 22:47:00* Test Item Value Reference Range Interpretation Comments Blood Urea Nitrogen (test code = 3094-0) 05-07 [facility] CypressBUN/Creatinine Pamrz5337-44-35 22:47:00* Test Item Value Reference Range Interpretation Comments BUN/Creatinine Ratio (test code = 3097-3) 11 04-06 [facility] Cujlc0705-64-39 22:28:00* Test Item Value Reference Range Interpretation Comments Sodium Level (test code = 2951-2) 132 136-145 L [facility] CypressPotassium Lhwsi0088-11-15 22:28:00* Test Item Value Reference Range Interpretation Comments Potassium Level (test code = 2823-3) 4.2 3.5-5.1 [facility] CypressChloride Xbhjg7087-51-54 22:28:00* Test Item Value Reference Range Interpretation Comments Chloride Level (test code = 2075-0) 93 98-107 L [facility] CypressCarbon Dioxide Yixvg8858-09-67 22:28:00* Test Item Value Reference Range Interpretation Comments Carbon Dioxide Level (test code = 8-9) 29 22-29 [facility] CypressAnion Fmp2668-01-02 22:28:00* Test Item Value Reference Range Interpretation Comments Anion Gap (test code = 38009-1) 14.2 8-16 [facility] CypressCreatinine2019-09-05 22:28:00* Test Item Value Reference Range Interpretation Comments Creatinine (test code = 2160-0) 0.83 0.57-1.11 [facility] CypressEstimat Glomerular Filtration Rate 2019-06-17 22:28:00* Test Item Value Reference Range Interpretation Comments Estimat Glomerular Filtration Rate (test code = 697808281) > 60 >60 Ranges were taken from the National Kidney Disease Education Program and the [facility] Kid[facility] Foundation literature.Reference ranges:60 or greater: Xvmnlo38-25 ( for 3 consecutive months): Chronic kidney disease 15 or less: Kidney failureHCA [facility] Healthcare North CypressGlucose Fpdxt7157-93-95 22:28:00* Test Item Value Reference Range Interpretation Comments Glucose Level (test code = CZP4882) 534 74-118 HH Results repeated and called to SHEKHAR ROSA at 2227 on 06/17/19 by MARIEL TSANG. Read back and verified.[facility] CypressCalcium Xvnap0257-94-48 22:28:00* Test Item Value Reference Range Interpretation Comments Calcium Level (test code = 99255-7) 10.7 8.4-10.2 H [facility] CypressMagnesium Opwkk2928-64-11 22:28:00* Test Item Value Reference Range Interpretation Comments Magnesium Level (test code = 77980-9) 1.6 1.3-2.1 [facility] CypressTotal Tgselgtwi4505-18-20 22:28:00* Test Item Value Reference Range Interpretation Comments Total Bilirubin (test code = 1975-2) 0.2 0.2-1.2 [facility] CypressAspartate Amino Transf (AST/SGOT) 2019-06-17 22:28:00* Test Item Value Reference Range Interpretation Comments Aspartate Amino Transf (AST/SGOT) (test code = Aspartate Amino Transf (AST/SGOT)) 9 5-34 [facility] CypressAlanine Aminotransferase (ALT/SGPT) 2019-06-17 22:28:00* Test Item Value Reference Range Interpretation Comments Alanine Aminotransferase (ALT/SGPT) (test code = 1742-6) 11 0-55 [facility] CypressTotal Labdlej8038-93-38 22:28:00* Test Item Value Reference Range Interpretation Comments Total Protein (test code = 2885-2) 7.0 6.5-8.1 [facility] CypressAlbumin2019-09-05 22:28:00* Test Item Value Reference Range Interpretation Comments Albumin (test code = 1751-7) 3.7 3.5-5.0 [facility] CypressGlobulin2019-09-05 22:28:00* Test Item Value Reference Range Interpretation Comments Globulin (test code = 96261-4) 3.3 2.3-3.5 [facility] CypressAlbumin/Globulin Gazih1036-83-73 22:28:00 * Test Item Value Reference Range Interpretation Comments Albumin/Globulin Ratio (test code = 1759-0) 1.1 0.8-2.0 [facility] CypressAlkaline Srrfzrtchjz5669-74-43 22:28:00* Test Item Value Reference Range Interpretation Comments Alkaline Phosphatase (test code = 6768-6) 132 40-150 [facility] Lqgaa3844-30-57 22:28:00* Test Item Value Reference Range Interpretation Comments Sodium Level (test code = 2951-2) 132 136-145 L [facility] CypressPotassium Ixhiy9845-92-56 22:28:00* Test Item Value Reference Range Interpretation Comments Potassium Level (test code = 2823-3) 4.2 3.5-5.1 [facility] CypressChloride Yrpul5105-47-96 22:28:00* Test Item Value Reference Range Interpretation Comments Chloride Level (test code = 2075-0) 93 98-107 L [facility] CypressCarbon Dioxide Exwzt2436-48-00 22:28:00* Test Item Value Reference Range Interpretation Comments Carbon Dioxide Level (test code = 8-9) 29 22-29 [facility] CypressAnion Qxq8076-94-60 22:28:00* Test Item Value Reference Range Interpretation Comments Anion Gap (test code = 64538-6) 14.2 8-16 [facility] CypressCreatinine2019-09-05 22:28:00* Test Item Value Reference Range Interpretation Comments Creatinine (test code = 2160-0) 0.83 0.57-1.11 [facility] CypressEstimat Glomerular Filtration Rate 2019-06-17 22:28:00* Test Item Value Reference Range Interpretation Comments Estimat Glomerular Filtration Rate (test code = 590980517) > 60 >60 Ranges were taken from the National Kidney Disease Education Program and the [facility] Kid[facility] Foundation literature.Reference ranges:60 or greater: Krfnyy43-22 ( for 3 consecutive months): Chronic kidney disease 15 or less: Kidney failureHCA [facility] Healthcare North CypressGlucose Lxatf3530-82-71 22:28:00* Test Item Value Reference Range Interpretation Comments Glucose Level (test code = WWI0007) 534 74-118 HH Results repeated and called to SHEKHAR ROSA at 2227 on 06/17/19 by MARIEL TSANG. Read back and verified.[facility] CypressCalcium Lxryw9648-66-24 22:28:00* Test Item Value Reference Range Interpretation Comments Calcium Level (test code = 12705-9) 10.7 8.4-10.2 H [facility] CypressMagnesium Mmlwr6263-10-80 22:28:00* Test Item Value Reference Range Interpretation Comments Magnesium Level (test code = 55496-9) 1.6 1.3-2.1 [facility] CypressTotal Soyoeikuj7562-60-49 22:28:00* Test Item Value Reference Range Interpretation Comments Total Bilirubin (test code = 1975-2) 0.2 0.2-1.2 [facility] CypressAspartate Amino Transf (AST/SGOT) 2019-06-17 22:28:00* Test Item Value Reference Range Interpretation Comments Aspartate Amino Transf (AST/SGOT) (test code = Aspartate Amino Transf (AST/SGOT)) 9 5-34 [facility] CypressAlanine Aminotransferase (ALT/SGPT) 2019-06-17 22:28:00* Test Item Value Reference Range Interpretation Comments Alanine Aminotransferase (ALT/SGPT) (test code = 1742-6) 11 0-55 [facility] CypressTotal Sovgzaa5502-76-86 22:28:00* Test Item Value Reference Range Interpretation Comments Total Protein (test code = 2885-2) 7.0 6.5-8.1 [facility] CypressAlbumin2019-09-05 22:28:00* Test Item Value Reference Range Interpretation Comments Albumin (test code = 1751-7) 3.7 3.5-5.0 [facility] CypressGlobulin2019-09-05 22:28:00* Test Item Value Reference Range Interpretation Comments Globulin (test code = 15070-0) 3.3 2.3-3.5 [facility] CypressAlbumin/Globulin Elbcy0360-95-02 22:28:00 * Test Item Value Reference Range Interpretation Comments Albumin/Globulin Ratio (test code = 1759-0) 1.1 0.8-2.0 [facility] CypressAlkaline Luqeshmcdpz7821-02-32 22:28:00* Test Item Value Reference Range Interpretation Comments Alkaline Phosphatase (test code = 6768-6) 132 40-150 [facility] CypressMagnesium Ybnkk2310-36-83 22:28:00* Test Item Value Reference Range Interpretation Comments Magnesium Level (test code = 69809-9) 1.6 1.3-2.1 [facility] CypressTotal Sjizyvgrm7056-05-29 22:28:00* Test Item Value Reference Range Interpretation Comments Total Bilirubin (test code = 1975-2) 0.2 0.2-1.2 [facility] CypressAspartate Amino Transf (AST/SGOT) 2019-06-17 22:28:00* Test Item Value Reference Range Interpretation Comments Aspartate Amino Transf (AST/SGOT) (test code = Aspartate Amino Transf (AST/SGOT)) 9 5-34 [facility] CypressAlanine Aminotransferase (ALT/SGPT) 2019-06-17 22:28:00* Test Item Value Reference Range Interpretation Comments Alanine Aminotransferase (ALT/SGPT) (test code = 1742-6) 11 0-55 [facility] CypressTotal Vfpiwut6516-13-00 22:28:00* Test Item Value Reference Range Interpretation Comments Total Protein (test code = 2885-2) 7.0 6.5-8.1 [facility] CypressAlbumin2019-09-05 22:28:00* Test Item Value Reference Range Interpretation Comments Albumin (test code = 1751-7) 3.7 3.5-5.0 [facility] CypressGlobulin2019-09-05 22:28:00* Test Item Value Reference Range Interpretation Comments Globulin (test code = 57922-1) 3.3 2.3-3.5 [facility] CypressAlbumin/Globulin Xleoh5558-40-26 22:28:00 * Test Item Value Reference Range Interpretation Comments Albumin/Globulin Ratio (test code = 1759-0) 1.1 0.8-2.0 [facility] CypressAlkaline Imzyopporha3304-67-42 22:28:00* Test Item Value Reference Range Interpretation Comments Alkaline Phosphatase (test code = 6768-6) 132 40-150 [facility] CypressMagnesium Ydphb4358-12-02 22:28:00* Test Item Value Reference Range Interpretation Comments Magnesium Level (test code = 43005-6) 1.6 1.3-2.1 [facility] CypressMagnesium Uxlxy6028-84-41 22:28:00* Test Item Value Reference Range Interpretation Comments Magnesium Level (test code = 64876-0) 1.6 1.3-2.1 [facility] CypressMagnesium Vlcth1060-58-88 22:28:00* Test Item Value Reference Range Interpretation Comments Magnesium Level (test code = 21559-7) 1.6 1.3-2.1 [facility] CypressMagnesium Sqisl3139-92-56 22:28:00* Test Item Value Reference Range Interpretation Comments Magnesium Level (test code = 87889-1) 1.6 1.3-2.1 [facility] CypressInfluenza Virus Types A,B Antigen 2019-06-17 22:18:00* Test Item Value Reference Range Interpretation Comments Influenza Virus Types A,B Antigen (test code = 77708-4) NEGATIVE NEGATIVE [facility] CypressInfluenza Virus Types A,B Antigen 2019-06-17 22:18:00* Test Item Value Reference Range Interpretation Comments Influenza Virus Types A,B Antigen (test code = 35429-4) NEGATIVE NEGATIVE [facility] CypressInfluenza Virus Types A,B Antigen 2019-06-17 22:18:00* Test Item Value Reference Range Interpretation Comments Influenza Virus Types A,B Antigen (test code = 78245-4) NEGATIVE NEGATIVE [facility] CypressInfluenza Virus Types A,B Antigen 2019-06-17 22:18:00* Test Item Value Reference Range Interpretation Comments Influenza Virus Types A,B Antigen (test code = 51806-3) NEGATIVE NEGATIVE [facility] CypressInfluenza Virus Types A,B Antigen 2019-06-17 22:18:00* Test Item Value Reference Range Interpretation Comments Influenza Virus Types A,B Antigen (test code = 43042-1) NEGATIVE NEGATIVE [facility] CypressInfluenza Virus Types A,B Antigen 2019-06-17 22:18:00* Test Item Value Reference Range Interpretation Comments Influenza Virus Types A,B Antigen (test code = 94467-0) NEGATIVE NEGATIVE [facility] CypressGroup A Streptococcus Wxjctj4599-39-64 22:08:00* Test Item Value Reference Range Interpretation Comments Group A Streptococcus Screen (test code = 07392-1) NEGATIVE NEG ATIVE [facility] CypressGroup A Streptococcus Hlexnp4998-15-81 22:08:00* Test Item Value Reference Range Interpretation Comments Group A Streptococcus Screen (test code = 01267-7) NEGATIVE NEG ATIVE [facility] CypressGroup A Streptococcus Jbsoji8956-98-09 22:08:00* Test Item Value Reference Range Interpretation Comments Group A Streptococcus Screen (test code = 47325-1) NEGATIVE NEG ATIVE [facility] CypressGroup A Streptococcus Hrgorm3855-61-79 22:08:00* Test Item Value Reference Range Interpretation Comments Group A Streptococcus Screen (test code = 70836-6) NEGATIVE NEG ATIVE [facility] CypressGroup A Streptococcus Lzbwyf9985-01-24 22:08:00* Test Item Value Reference Range Interpretation Comments Group A Streptococcus Screen (test code = 59739-1) NEGATIVE NEG ATIVE [facility] CypressGroup A Streptococcus Kgkexu7684-12-97 22:08:00* Test Item Value Reference Range Interpretation Comments Group A Streptococcus Screen (test code = 24751-4) NEGATIVE NEG IVE [facility] CypressWhite Blood Oninn2535-23-14 22:04:00* Test Item Value Reference Range Interpretation Comments White Blood Count (test code = 6690-2) 7.25 4.8-10.8 [facility] CypressRed Blood Lhaib5164-45-56 22:04:00* Test Item Value Reference Range Interpretation Comments Red Blood Count (test code = 789-8) 5.01 3.6-5.1 [facility] CypressHemoglobin2019-09-05 22:04:00* Test Item Value Reference Range Interpretation Comments Hemoglobin (test code = 62857-9) 14.4 12.0-16.0 [facility] CypressHematocrit2019-09-05 22:04:00* Test Item Value Reference Range Interpretation Comments Hematocrit (test code = 4544-3) 41.1 34.2-44.1 [facility] CypressMean Corpuscular Ycwczn1947-63-44 22:04:00* Test Item Value Reference Range Interpretation Comments Mean Corpuscular Volume (test code = 787-2) 82.0 81-99 [facility] CypressMean Corpuscular Kbusultwfm6993-07-19 22:04:00* Test Item Value Reference Range Interpretation Comments Mean Corpuscular Hemoglobin (test code = 785-6) 28.7 28-32 [facility]ressMean Corpuscular Hemoglobin Concent 2019-06-17 22:04:00* Test Item Value Reference Range Interpretation Comments Mean Corpuscular Hemoglobin Concent (test code = 786-4) 35.0 31-35 [facility] CypressRed Cell Distribution Yhmhj0428-66-08 22:04:00* Test Item Value Reference Range Interpretation Comments Red Cell Distribution Width (test code = 11521-6) 11.8 11.7 -14.4 [facility] CypressPlatelet Slrdm0243-30-23 22:04:00* Test Item Value Reference Range Interpretation Comments Platelet Count (test code = 777-3) 194 140-360 [facility] CypressNeutrophils (%) (Auto)2019-06-17 22:04:00 * Test Item Value Reference Range Interpretation Comments Neutrophils (%) (Auto) (test code = 26937-4) 45.1 38.7-80.0 [facility] CypressLymphocytes (%) (Auto)2019-06-17 22:04:00 * Test Item Value Reference Range Interpretation Comments Lymphocytes (%) (Auto) (test code = 736-9) 47.2 18.0-39.1 H [facility] CypressMonocytes (%) (Auto)2019-06-17 22:04:00* Test Item Value Reference Range Interpretation Comments Monocytes (%) (Auto) (test code = 5905-5) 6.3 4.4-11.3 [facility]ressEosinophils (%) (Auto)2019-06-17 22:04:00 * Test Item Value Reference Range Interpretation Comments Eosinophils (%) (Auto) (test code = 713-8) 0.7 0.0-6.0 [facility]ressBasophils (%) (Auto)2019-06-17 22:04:00* Test Item Value Reference Range Interpretation Comments Basophils (%) (Auto) (test code = 706-2) 0.4 0.0-1.0 [facility] CypressIM GRANULOCYTES %2019-06-17 22:04:00* Test Item Value Reference Range Interpretation Comments IM GRANULOCYTES % (test code = IM GRANULOCYTES %) 0.3 0.0- 1.0 [facility] CypressNeutrophils # (Auto)2019-06-17 22:04:00* Test Item Value Reference Range Interpretation Comments Neutrophils # (Auto) (test code = 751-8) 3.3 2.1-6.9 [facility] CypressLymphocytes # (Auto)2019-06-17 22:04:00* Test Item Value Reference Range Interpretation Comments Lymphocytes # (Auto) (test code = 01130-8) 3.4 1.0-3.2 H [facility] CypressMonocytes # (Auto)2019-06-17 22:04:00* Test Item Value Reference Range Interpretation Comments Monocytes # (Auto) (test code = 742-7) 0.5 0.2-0.8 [facility]ressEosinophils # (Auto)2019-06-17 22:04:00* Test Item Value Reference Range Interpretation Comments Eosinophils # (Auto) (test code = 711-2) 0.1 0.0-0.4 [facility]ressBasophils # (Auto)2019-06-17 22:04:00* Test Item Value Reference Range Interpretation Comments Basophils # (Auto) (test code = 704-7) 0.0 0.0-0.1 [facility] CypressAbsolute Immature Granulocyte (auto 2019-06-17 22:04:00* Test Item Value Reference Range Interpretation Comments Absolute Immature Granulocyte (auto (chiquita t code = Absolute Immature Granulocyte (auto) 0.02 0-0.1 [facility] CypressWhite Blood Kcxrd2493-50-17 22:04:00* Test Item Value Reference Range Interpretation Comments White Blood Count (test code = 6690-2) 7.25 4.8-10.8 [facility] CypressRed Blood Tsexa7863-87-16 22:04:00* Test Item Value Reference Range Interpretation Comments Red Blood Count (test code = 789-8) 5.01 3.6-5.1 [facility] CypressHemoglobin2019-09-05 22:04:00* Test Item Value Reference Range Interpretation Comments Hemoglobin (test code = 64419-4) 14.4 12.0-16.0 [facility] CypressHematocrit2019-09-05 22:04:00* Test Item Value Reference Range Interpretation Comments Hematocrit (test code = 4544-3) 41.1 34.2-44.1 [facility]ressMean Corpuscular Iklgjt5992-76-61 22:04:00* Test Item Value Reference Range Interpretation Comments Mean Corpuscular Volume (test code = 787-2) 82.0 81-99 [facility]ressMean Corpuscular Eakrbfvcqm5016-79-44 22:04:00* Test Item Value Reference Range Interpretation Comments Mean Corpuscular Hemoglobin (test code = 785-6) 28.7 28-32 [facility]ressMean Corpuscular Hemoglobin Concent 2019-06-17 22:04:00* Test Item Value Reference Range Interpretation Comments Mean Corpuscular Hemoglobin Concent (test code = 786-4) 35.0 31-35 [facility] CypressRed Cell Distribution Lxiac8862-23-07 22:04:00* Test Item Value Reference Range Interpretation Comments Red Cell Distribution Width (test code = 94954-7) 11.8 11.7 -14.4 [facility] CypressPlatelet Oyveb8067-57-66 22:04:00* Test Item Value Reference Range Interpretation Comments Platelet Count (test code = 777-3) 194 140-360 [facility] CypressNeutrophils (%) (Auto)2019-06-17 22:04:00 * Test Item Value Reference Range Interpretation Comments Neutrophils (%) (Auto) (test code = 40844-6) 45.1 38.7-80.0 [facility] CypressLymphocytes (%) (Auto)2019-06-17 22:04:00 * Test Item Value Reference Range Interpretation Comments Lymphocytes (%) (Auto) (test code = 736-9) 47.2 18.0-39.1 H [facility] CypressMonocytes (%) (Auto)2019-06-17 22:04:00* Test Item Value Reference Range Interpretation Comments Monocytes (%) (Auto) (test code = 5905-5) 6.3 4.4-11.3 [facility] CypressEosinophils (%) (Auto)2019-06-17 22:04:00 * Test Item Value Reference Range Interpretation Comments Eosinophils (%) (Auto) (test code = 713-8) 0.7 0.0-6.0 [facility] CypressBasophils (%) (Auto)2019-06-17 22:04:00* Test Item Value Reference Range Interpretation Comments Basophils (%) (Auto) (test code = 706-2) 0.4 0.0-1.0 [facility] CypressIM GRANULOCYTES %2019-06-17 22:04:00* Test Item Value Reference Range Interpretation Comments IM GRANULOCYTES % (test code = IM GRANULOCYTES %) 0.3 0.0- 1.0 [facility] CypressNeutrophils # (Auto)2019-06-17 22:04:00* Test Item Value Reference Range Interpretation Comments Neutrophils # (Auto) (test code = 751-8) 3.3 2.1-6.9 [facility] CypressLymphocytes # (Auto)2019-06-17 22:04:00* Test Item Value Reference Range Interpretation Comments Lymphocytes # (Auto) (test code = 75812-1) 3.4 1.0-3.2 H [facility] CypressMonocytes # (Auto)2019-06-17 22:04:00* Test Item Value Reference Range Interpretation Comments Monocytes # (Auto) (test code = 742-7) 0.5 0.2-0.8 [facility] CypressEosinophils # (Auto)2019-06-17 22:04:00* Test Item Value Reference Range Interpretation Comments Eosinophils # (Auto) (test code = 711-2) 0.1 0.0-0.4 [facility] CypressBasophils # (Auto)2019-06-17 22:04:00* Test Item Value Reference Range Interpretation Comments Basophils # (Auto) (test code = 704-7) 0.0 0.0-0.1 [facility] CypressAbsolute Immature Granulocyte (auto 2019-06-17 22:04:00* Test Item Value Reference Range Interpretation Comments Absolute Immature Granulocyte (auto (chiquita t code = Absolute Immature Granulocyte (auto) 0.02 0-0.1 [facility] CypressCHEST 2 [id number] 21:18:00 [facility] [address] [address] Patient Name: YOLETTE URIBE MR #: [id number] : 1975 Age/Sex: 43/F Req #: [id number] Adm Physician: Ordered by: [employer] Report #: [id number] Location: ER Room/Bed: Procedure: [id number] DX/CH EST 2 VIEWS Exam Date: 06/17/19 [...] JEMAL on 2118 COPY TO: [employer] Urine FSN0436-76-01 20:09:00* Test Item Value Reference Range Interpretation Comments Urine WBC (test code = 5821-4) 0-5 0-5 [facility]ressUrine FQB8340-56-18 20:09:00* Test Item Value Reference Range Interpretation Comments Urine RBC (test code = 62801-0) NONE 0-5 [facility] CypressUrine Pictnsys0797-04-56 20:09:00* Test Item Value Reference Range Interpretation Comments Urine Bacteria (test code = 81854-9) RARE NONE [facility]ressUrine Epithelial Znatv4626-29-73 20:09:00 * Test Item Value Reference Range Interpretation Comments Urine Epithelial Cells (test code = 28763-0) FEW NONE [facility] CypressUrine [id number] 20:09:00* Test Item Value Reference Range Interpretation Comments Urine WBC (test code = 5821-4) 0-5 0-5 [facility]ressUrine [id number] 20:09:00* Test Item Value Reference Range Interpretation Comments Urine RBC (test code = 93605-7) NONE 0-5 [facility]ressU[facility] Dxjyaboc2714-08-75 20:09:00* Test Item Value Reference Range Interpretation Comments Urine Bacteria (test code = 12344-3) RARE NONE [facility]ressU[facility] Epithelial Dmveu7165-61-13 20:09:00 * Test Item Value Reference Range Interpretation Comments Urine Epithelial Cells (test code = 47381-6) FEW NONE [facility]ressU[facility] [id number] 20:09:00* Test Item Value Reference Range Interpretation Comments Urine WBC (test code = 5821-4) 0-5 0-5 [facility]ressU[facility] [id number] 20:09:00* Test Item Value Reference Range Interpretation Comments Urine RBC (test code = 86661-6) NONE 0-5 [facility]ressU[facility] Xsinakzl8520-03-34 20:09:00* Test Item Value Reference Range Interpretation Comments Urine Bacteria (test code = 85445-3) RARE NONE [facility]ressU[facility] Epithelial Ojttk6970-82-15 20:09:00 * Test Item Value Reference Range Interpretation Comments Urine Epithelial Cells (test code = 68104-6) FEW NONE [facility] CypressU[facility] EYL4398-82-06 20:09:00* Test Item Value Reference Range Interpretation Comments Urine WBC (test code = 5821-4) 0-5 0-5 [facility]ressU[facility] QVQ8664-21-25 20:09:00* Test Item Value Reference Range Interpretation Comments Urine RBC (test code = 03034-6) NONE 0-5 [facility]ressU[facility] Anqghgmf3797-62-23 20:09:00* Test Item Value Reference Range Interpretation Comments Urine Bacteria (test code = 68899-3) RARE NONE [facility]ressU[facility] Epithelial Zzwbd5545-97-53 20:09:00 * Test Item Value Reference Range Interpretation Comments Urine Epithelial Cells (test code = 64772-3) FEW NONE [facility]ressU[facility] [id number] 20:09:00* Test Item Value Reference Range Interpretation Comments Urine WBC (test code = 5821-4) 0-5 0-5 [facility]ressU[facility] APF9207-09-13 20:09:00* Test Item Value Reference Range Interpretation Comments Urine RBC (test code = 43788-7) NONE 0-5 [facility]ressU[facility] Ibemlpgl2658-02-92 20:09:00* Test Item Value Reference Range Interpretation Comments Urine Bacteria (test code = 02348-4) RARE NONE [facility]ressU[facility] Epithelial Jlgqj0206-66-56 20:09:00 * Test Item Value Reference Range Interpretation Comments Urine Epithelial Cells (test code = 00953-6) FEW NONE [facility]ressU[facility] [id number] 20:09:00* Test Item Value Reference Range Interpretation Comments Urine WBC (test code = 5821-4) 0-5 0-5 [facility]ressU[facility] [id number] 20:09:00* Test Item Value Reference Range Interpretation Comments Urine RBC (test code = 17599-0) NONE 0-5 [facility]ressU[facility] Qhomezhc1284-24-24 20:09:00* Test Item Value Reference Range Interpretation Comments Urine Bacteria (test code = 78533-2) RARE NONE [facility]ress[facility] Epithelial Jyjjl2563-39-55 20:09:00 * Test Item Value Reference Range Interpretation Comments Urine Epithelial Cells (test code = 47379-1) FEW NONE [facility]ressU[facility] [id number] 20:09:00* Test Item Value Reference Range Interpretation Comments Urine WBC (test code = 5821-4) 0-5 0-5 [facility]ressU[facility] EYO7427-36-22 20:09:00* Test Item Value Reference Range Interpretation Comments Urine RBC (test code = 56502-7) NONE 0-5 [facility]ressU[facility] Ebwrrjwg2063-27-28 20:09:00* Test Item Value Reference Range Interpretation Comments Urine Bacteria (test code = 11043-3) RARE NONE [facility]ressU[facility] Epithelial Tzldn2286-18-75 20:09:00 * Test Item Value Reference Range Interpretation Comments Urine Epithelial Cells (test code = 25198-5) FEW NONE [facility]ressU[facility] Vcft5314-66-51 19:57:00* Test Item Value Reference Range Interpretation Comments Urine Test (test code = 2106-3) NEGATIVE NEGATIVE [facility]ress[facility] Pxfy7424-85-97 19:57:00* Test Item Value Reference Range Interpretation Comments Urine Test (test code = 2106-3) NEGATIVE NEGATIVE [facility] Cjsn9965-47-84 19:57:00* Test Item Value Reference Range Interpretation Comments Urine Test (test code = 2106-3) NEGATIVE NEGATIVE [facility]ressU[facility] Uqyog0827-05-19 19:56:00* Test Item Value Reference Range Interpretation Comments Urine Color (test code = 5778-6) YELLOW YELLOW [facility]ress[facility] Dzjdkoz7466-83-33 19:56:00* Test Item Value Reference Range Interpretation Comments Urine Clarity (test code = 56614-9) CLEAR CLEAR [facility]ressU[facility] Specific Qeyakfl7417-71-39 19:56:00 * Test Item Value Reference Range Interpretation Comments Urine Specific [place] (test code = 5811-5) <=1.005 1.010-1.02 5 [facility]ressU[facility] [id number] 19:56:00* Test Item Value Reference Range Interpretation Comments Urine pH (test code = 37142-0) 6 5-7 [facility] Leukocyte Jumlonwe3788-31-77 19:56:00* Test Item Value Reference Range Interpretation Comments Urine Leukocyte Esterase (test code = 80164-9) NEGATIVE NEGATIV E [facility]ress[facility] Adqfntb7178-67-20 19:56:00* Test Item Value Reference Range Interpretation Comments Urine Nitrite (test code = 56397-6) NEGATIVE NEGATIVE [facility] Elqrykz9209-45-70 19:56:00* Test Item Value Reference Range Interpretation Comments Urine Protein (test code = 45773-0) NEGATIVE NEGATIVE [facility]ress[facility] Glucose (UA)2019-06-17 19:56:00* Test Item Value Reference Range Interpretation Comments Urine Glucose (UA) (test code = 62639-5) 3+ NEGATIVE [facility]ressU[facility] Hpqjstw9983-41-53 19:56:00* Test Item Value Reference Range Interpretation Comments Urine Ketones (test code = 74707-4) NEGATIVE NEGATIVE [facility]ressU[facility] Aeoeiaypqmek5570-33-88 19:56:00* Test Item Value Reference Range Interpretation Comments Urine Urobilinogen (test code = 21555-4) 0.2 0.2-1 [facility]ress[facility] Hgbtbayzg0171-53-87 19:56:00* Test Item Value Reference Range Interpretation Comments Urine Bilirubin (test code = 1977-8) NEGATIVE NEGATIVE [facility]ress[facility] Hltqi1714-85-88 19:56:00* Test Item Value Reference Range Interpretation Comments Urine Blood (test code = 14144-9) NEGATIVE NEGATIVE [facility]ressU[facility] Xvmdc9164-45-23 19:56:00* Test Item Value Reference Range Interpretation Comments Urine Color (test code = 5778-6) YELLOW YELLOW [facility]ress[facility] Xwpesny7711-11-69 19:56:00* Test Item Value Reference Range Interpretation Comments Urine Clarity (test code = 07720-7) CLEAR CLEAR [facility]ressU[facility] Specific Cwdjvet5749-25-17 19:56:00 * Test Item Value Reference Range Interpretation Comments Urine Specific [place] (test code = 5811-5) <=1.005 1.010-1.02 5 [facility]ressU[facility] jV1804-03-28 19:56:00* Test Item Value Reference Range Interpretation Comments Urine pH (test code = 59975-2) 6 5-7 [facility] Leukocyte Gyuucsun1059-11-83 19:56:00* Test Item Value Reference Range Interpretation Comments Urine Leukocyte Esterase (test code = 45881-9) NEGATIVE NEGATIV E [facility]ressU[facility] Jcmadrx4103-08-80 19:56:00* Test Item Value Reference Range Interpretation Comments Urine Nitrite (test code = 84566-7) NEGATIVE NEGATIVE [facility]ressU[facility] Zefvbdj5547-83-42 19:56:00* Test Item Value Reference Range Interpretation Comments Urine Protein (test code = 61261-0) NEGATIVE NEGATIVE [facility]ressU[facility] Glucose (UA)2019-06-17 19:56:00* Test Item Value Reference Range Interpretation Comments Urine Glucose (UA) (test code = 67811-3) 3+ NEGATIVE [facility]ressU[facility] Nmrppsi7473-69-63 19:56:00* Test Item Value Reference Range Interpretation Comments Urine Ketones (test code = 15837-4) NEGATIVE NEGATIVE [facility] Cbdzpntcpxpb5782-66-50 19:56:00* Test Item Value Reference Range Interpretation Comments Urine Urobilinogen (test code = 21420-3) 0.2 0.2-1 [facility] Igdnqzneg5438-73-71 19:56:00* Test Item Value Reference Range Interpretation Comments Urine Bilirubin (test code = 1977-8) NEGATIVE NEGATIVE [facility]ress[facility] Ggbvu3589-61-31 19:56:00* Test Item Value Reference Range Interpretation Comments Urine Blood (test code = 10842-2) NEGATIVE NEGATIVE [facility]ress[facility] Kbsua8585-92-88 19:56:00* Test Item Value Reference Range Interpretation Comments Urine Color (test code = 5778-6) YELLOW YELLOW [facility]ressU[facility] Bhcitlp3058-19-58 19:56:00* Test Item Value Reference Range Interpretation Comments Urine Clarity (test code = 55370-2) CLEAR CLEAR [facility]ressU[facility] Specific Xawrxbb3117-62-49 19:56:00 * Test Item Value Reference Range Interpretation Comments Urine Specific [place] (test code = 5811-5) <=1.005 1.010-1.02 5 [facility]ressU[facility] vF6460-72-98 19:56:00* Test Item Value Reference Range Interpretation Comments Urine pH (test code = 59040-2) 6 5-7 [facility]ressU[facility] Leukocyte Umlighox4438-63-92 19:56:00* Test Item Value Reference Range Interpretation Comments Urine Leukocyte Esterase (test code = 45111-4) NEGATIVE NEGATIV E [facility]ress[facility] Zpnowdl5391-89-18 19:56:00* Test Item Value Reference Range Interpretation Comments Urine Nitrite (test code = 76178-5) NEGATIVE NEGATIVE [facility]ressU[facility] Ojozxwh6820-77-75 19:56:00* Test Item Value Reference Range Interpretation Comments Urine Protein (test code = 19419-0) NEGATIVE NEGATIVE [facility]ressU[facility] Glucose (UA)2019-06-17 19:56:00* Test Item Value Reference Range Interpretation Comments Urine Glucose (UA) (test code = 06629-4) 3+ NEGATIVE [facility]ressU[facility] Cawcclj4061-12-74 19:56:00* Test Item Value Reference Range Interpretation Comments Urine Ketones (test code = 01976-5) NEGATIVE NEGATIVE [facility]ressU[facility] Fbtsgvcznbkm5798-53-30 19:56:00* Test Item Value Reference Range Interpretation Comments Urine Urobilinogen (test code = 63904-3) 0.2 0.2-1 [facility] Phzltooml3496-99-09 19:56:00* Test Item Value Reference Range Interpretation Comments Urine Bilirubin (test code = 1977-8) NEGATIVE NEGATIVE [facility] Ndxps1519-99-64 19:56:00* Test Item Value Reference Range Interpretation Comments Urine Blood (test code = 18068-6) NEGATIVE NEGATIVE [facility] Uowiw9952-72-97 19:56:00* Test Item Value Reference Range Interpretation Comments Urine Color (test code = 5778-6) YELLOW YELLOW [facility]ressU[facility] Epttiuk0214-56-07 19:56:00* Test Item Value Reference Range Interpretation Comments Urine Clarity (test code = 85725-0) CLEAR CLEAR [facility] Specific Nbtjhoo9049-10-50 19:56:00 * Test Item Value Reference Range Interpretation Comments Urine Specific [place] (test code = 5811-5) <=1.005 1.010-1.02 5 [facility]ressU[facility] hL0538-99-10 19:56:00* Test Item Value Reference Range Interpretation Comments Urine pH (test code = 07979-5) 6 5-7 [facility] Leukocyte Rizumcra7872-85-07 19:56:00* Test Item Value Reference Range Interpretation Comments Urine Leukocyte Esterase (test code = 90282-1) NEGATIVE NEGATIV E [facility]ressU[facility] Fszicia9907-10-02 19:56:00* Test Item Value Reference Range Interpretation Comments Urine Nitrite (test code = 47271-5) NEGATIVE NEGATIVE [facility] Ripxynv2814-13-38 19:56:00* Test Item Value Reference Range Interpretation Comments Urine Protein (test code = 95613-9) NEGATIVE NEGATIVE [facility]ress[facility] Glucose (UA)2019-06-17 19:56:00* Test Item Value Reference Range Interpretation Comments Urine Glucose (UA) (test code = 26415-8) 3+ NEGATIVE [facility] Khfeqlz0400-36-63 19:56:00* Test Item Value Reference Range Interpretation Comments Urine Ketones (test code = 58526-3) NEGATIVE NEGATIVE [facility] Fubtolfpfwyk3289-41-18 19:56:00* Test Item Value Reference Range Interpretation Comments Urine Urobilinogen (test code = 05614-8) 0.2 0.2-1 [facility] Cgxraroaw1179-12-78 19:56:00* Test Item Value Reference Range Interpretation Comments Urine Bilirubin (test code = 1977-8) NEGATIVE NEGATIVE [facility] Vhdhx2873-48-08 19:56:00* Test Item Value Reference Range Interpretation Comments Urine Blood (test code = 92504-1) NEGATIVE NEGATIVE [facility] Iclhx8176-89-79 19:56:00* Test Item Value Reference Range Interpretation Comments Urine Color (test code = 5778-6) YELLOW YELLOW [facility] Qhxleos9812-72-29 19:56:00* Test Item Value Reference Range Interpretation Comments Urine Clarity (test code = 06480-4) CLEAR CLEAR [facility] Specific Awwnpet3222-13-86 19:56:00 * Test Item Value Reference Range Interpretation Comments Urine Specific [place] (test code = 5811-5) <=1.005 1.010-1.02 5 [facility] yL8263-33-91 19:56:00* Test Item Value Reference Range Interpretation Comments Urine pH (test code = 00814-1) 6 5-7 [facility] Leukocyte Reahqybj4034-76-66 19:56:00* Test Item Value Reference Range Interpretation Comments Urine Leukocyte Esterase (test code = 42287-9) NEGATIVE NEGATIV E [facility] Vtskddi4815-41-90 19:56:00* Test Item Value Reference Range Interpretation Comments Urine Nitrite (test code = 74125-1) NEGATIVE NEGATIVE [facility] Prdoldz4469-68-51 19:56:00* Test Item Value Reference Range Interpretation Comments Urine Protein (test code = 22432-3) NEGATIVE NEGATIVE [facility] Glucose (UA)2019-06-17 19:56:00* Test Item Value Reference Range Interpretation Comments Urine Glucose (UA) (test code = 51926-2) 3+ NEGATIVE [facility] Pypftvx0253-48-80 19:56:00* Test Item Value Reference Range Interpretation Comments Urine Ketones (test code = 16547-0) NEGATIVE NEGATIVE [facility] Cnjqyqwfohnx7981-68-64 19:56:00* Test Item Value Reference Range Interpretation Comments Urine Urobilinogen (test code = 88821-2) 0.2 0.2-1 [facility] Qtyjcfpps8053-83-84 19:56:00* Test Item Value Reference Range Interpretation Comments Urine Bilirubin (test code = 1977-8) NEGATIVE NEGATIVE [facility] Fnogh0374-30-47 19:56:00* Test Item Value Reference Range Interpretation Comments Urine Blood (test code = 84592-8) NEGATIVE NEGATIVE [facility] Avitx8702-26-78 19:56:00* Test Item Value Reference Range Interpretation Comments Urine Color (test code = 5778-6) YELLOW YELLOW [facility] Hiwevqq7222-91-52 19:56:00* Test Item Value Reference Range Interpretation Comments Urine Clarity (test code = 89762-8) CLEAR CLEAR [facility] [place] Bajljcb6479-92-20 19:56:00 * Test Item Value Reference Range Interpretation Comments Urine Specific [place] (test code = 5811-5) <=1.005 1.010-1.02 5 [facility] rI0397-41-09 19:56:00* Test Item Value Reference Range Interpretation Comments Urine pH (test code = 07983-5) 6 5-7 [facility] Leukocyte Yeavavna8687-75-84 19:56:00* Test Item Value Reference Range Interpretation Comments Urine Leukocyte Esterase (test code = 70698-9) NEGATIVE NEGATIV E [facility] Dxijysi7444-34-84 19:56:00* Test Item Value Reference Range Interpretation Comments Urine Nitrite (test code = 01659-1) NEGATIVE NEGATIVE [facility] Dvtsijd6923-20-26 19:56:00* Test Item Value Reference Range Interpretation Comments Urine Protein (test code = 69012-1) NEGATIVE NEGATIVE [facility] Glucose (UA)2019-06-17 19:56:00* Test Item Value Reference Range Interpretation Comments Urine Glucose (UA) (test code = 26204-8) 3+ NEGATIVE [facility] Skyibqm7351-13-12 19:56:00* Test Item Value Reference Range Interpretation Comments Urine Ketones (test code = 97109-9) NEGATIVE NEGATIVE [facility] Aiihmlxmsajf1466-64-40 19:56:00* Test Item Value Reference Range Interpretation Comments Urine Urobilinogen (test code = 46504-6) 0.2 0.2-1 [facility] Kqwmuvwqm8766-01-58 19:56:00* Test Item Value Reference Range Interpretation Comments Urine Bilirubin (test code = 1977-8) NEGATIVE NEGATIVE [facility] Ukmkf5918-45-29 19:56:00* Test Item Value Reference Range Interpretation Comments Urine Blood (test code = 77569-5) NEGATIVE NEGATIVE [facility] Gsjdw7242-17-63 19:56:00* Test Item Value Reference Range Interpretation Comments Urine Color (test code = 5778-6) YELLOW YELLOW [facility] Bfrucro5968-22-81 19:56:00* Test Item Value Reference Range Interpretation Comments Urine Clarity (test code = 61552-3) CLEAR CLEAR [facility] Kpgdpjx1431-36-15 19:56:00 * Test Item Value Reference Range Interpretation Comments Urine Specific [place] (test code = 5811-5) <=1.005 1.010-1.02 5 [facility] xC4471-22-03 19:56:00* Test Item Value Reference Range Interpretation Comments Urine pH (test code = 37220-0) 6 5-7 [facility] Leukocyte Qvhwdzpm5831-72-04 19:56:00* Test Item Value Reference Range Interpretation Comments Urine Leukocyte Esterase (test code = 67562-9) NEGATIVE NEGATIV E [facility] Sebvqxx6884-51-55 19:56:00* Test Item Value Reference Range Interpretation Comments Urine Nitrite (test code = 95307-1) NEGATIVE NEGATIVE [facility] Zsymrpd1736-42-92 19:56:00* Test Item Value Reference Range Interpretation Comments Urine Protein (test code = 83279-5) NEGATIVE NEGATIVE [facility] Glucose (UA)2019-06-17 19:56:00* Test Item Value Reference Range Interpretation Comments Urine Glucose (UA) (test code = 40186-0) 3+ NEGATIVE [facility] Ehtytvc7567-49-73 19:56:00* Test Item Value Reference Range Interpretation Comments Urine Ketones (test code = 66349-3) NEGATIVE NEGATIVE [facility] Obxuhtlyrell0813-89-05 19:56:00* Test Item Value Reference Range Interpretation Comments Urine Urobilinogen (test code = 08218-8) 0.2 0.2-1 [facility] Xmqmrtjab9499-10-47 19:56:00* Test Item Value Reference Range Interpretation Comments Urine Bilirubin (test code = 1977-8) NEGATIVE NEGATIVE [facility] Vjozv1596-97-64 19:56:00* Test Item Value Reference Range Interpretation Comments Urine Blood (test code = 82090-5) NEGATIVE NEGATIVE [facility] CypressBASIC METABOLIC EGORM1568-61-22 15:17:00 * Test Item Value Reference Range Interpretation Comments SODIUM (test code = NA) 126 mmol/L 136-145 L POTASSIUM (test code = K) 3.8 mmol/L 3.5-5.1 N CHLORIDE (test code = CL) 91.0 mmol/L 98-107 L CARBON DIOXIDE (test code = CO2) 24.0 mmol/L 21-32 N ANION GAP (test code = GAP) 14.8 10-20 N GLUCOSE (test code = GLU) 849 mg/dL 74-106 HH Re sults called to LAURI/KLF8006zz V.LAB.[facility] 06/17/19 1456Critical results verified and read back [...] CA) 9.3 mg/dL 8.5-10.1 N HEPATIC FUNCTION MUAAZ1242-85-08 15:17:00* Test Item Value Reference Range Interpretation [...] reference range due to change in reagent. IQMVYT0873-17-98 15:17:00* Test Item Value Reference Range Interpretation Comments LIPASE (test code = LIP) 234 U/L 73.0-393.0 N HCG SERUM NUVY0064-56-21 15:17:00* Test Item Value Reference Range Interpretation Comments HCG SERUM QUAL (test code = HCGQL) NEGATIVE NEGATIVE This HCGQL test is NOT applicable for MALE patients.Check with nurse about probable order error.If Tumor Marker Test needed, nurse should order test "HCGTU"(Test #550.02726) ILOCBCPY-C0413-49-05 15:17:00* Test Item Value Reference Range Interpretation Comments TROPONIN-I (test code = TROPI) <0.015 ng/mL 0-0.045 N URINALYSIS KUEYMVIU2277-34-34 15:14:00* Test Item Value Reference Range Interpretation [...] #/LPF FEW Urine Source? Clean CatchBASIC METABOLIC YIEQK2690-63-64 14:56:00* Test Item Value Reference Range Interpretation [...] 849 mg/dL 74-106 Re sults called to LAURI/PIM0266da V.LAB.[facility] 06/17/19 1456Critical results verified and read [...] CA) 9.3 mg/dL 8.5-10.1 N HEPATIC FUNCTION YQAVB4390-70-81 14:56:00* Test Item Value Reference Range Interpretation [...] reference range due to change in reagent. LWYJSU6790-95-52 14:56:00* Test Item Value Reference Range Interpretation Comments LIPASE (test code = LIP) 234 U/L 73.0-393.0 N HCG SERUM [id number] 14:56:00* Test Item Value Reference Range Interpretation Comments HCG SERUM QUAL (test code = HCGQL) NEGATIVE AZPKHVXT-[id number] 14:56:00* Test Item Value Reference Range Interpretation Comments TROPONIN-I (test code = TROPI) <0.015 ng/mL 0-0.045 N CBC W/O IDBQ9655-68-29 14:24:00* Test Item Value Reference Range Interpretation [...] MPV) 11.6 fL 6.7-11.0 H CBC W/O [id number] 14:20:00* Test Item Value Reference Range Interpretation [...] code = MPV) fL 6.7-11.0 BASIC METABOLIC [id number] 14:20:00* Test Item Value Reference Range Interpretation [...] code = CA) mg/dL 8.5-10.1 HEPATIC FUNCTION [id number] 14:20:00* Test Item Value Reference Range Interpretation [...] TOTAL (test code = ALKP) IUnit/L 45-117 MGKZZR5305-51-56 14:20:00* Test Item Value Reference Range Interpretation Comments LIPASE (test code = LIP) U/L 73.0-393.0 HCG SERUM [id number] 14:20:00* Test Item Value Reference Range Interpretation Comments HCG SERUM QUAL (test code = HCGQL) NEGATIVE NJLWQTNC-C5738-21-05 14:20:00* Test Item Value Reference Range Interpretation Comments TROPONIN-I (test code = TROPI) ng/mL 0-0.045 Urine [id number] 23:35:00* Test Item Value Reference Range Interpretation Comments Urine WBC (test code = 5821-4) >50 0-5 H [facility] MRY7559-04-80 23:35:00* Test Item Value Reference Range Interpretation Comments Urine RBC (test code = 30340-7) 0-5 0-5 [facility] Qfsaqhxj0610-46-33 23:35:00* Test Item Value Reference Range Interpretation Comments Urine Bacteria (test code = 73090-8) FEW NONE [facility] Epithelial Cosap2790-75-16 23:35:00 * Test Item Value Reference Range Interpretation Comments Urine Epithelial Cells (test code = 48161-6) FEW NONE [facility] Dmtci8319-57-57 23:24:00* Test Item Value Reference Range Interpretation Comments Urine Color (test code = 5778-6) YELLOW YELLOW [facility] Xremylm7849-88-87 23:24:00* Test Item Value Reference Range Interpretation Comments Urine Clarity (test code = 85895-0) CLEAR CLEAR [facility] Specific Rxcdkwr1640-07-78 23:24:00 * Test Item Value Reference Range Interpretation Comments Urine Specific [place] (test code = 5811-5) 1.005 1.010-1.02 5 L [facility] uH7603-68-25 23:24:00* Test Item Value Reference Range Interpretation Comments Urine pH (test code = 21698-8) 6 5-7 [facility] Leukocyte Hhobubum0614-74-30 23:24:00* Test Item Value Reference Range Interpretation Comments Urine Leukocyte Esterase (test code = 5799-2) NEGATIVE NEGATIVE [facility] Eulgqoi7449-33-70 23:24:00* Test Item Value Reference Range Interpretation Comments Urine Nitrite (test code = 41169-7) NEGATIVE NEGATIVE [facility] Hfhojnt8802-89-05 23:24:00* Test Item Value Reference Range Interpretation Comments Urine Protein (test code = 5804-0) NEGATIVE NEGATIVE [facility] Glucose (UA)2019-01-23 23:24:00* Test Item Value Reference Range Interpretation Comments Urine Glucose (UA) (test code = 2349-9) 3+ NEGATIVE H [facility] Neyfkkg0639-19-98 23:24:00* Test Item Value Reference Range Interpretation Comments Urine Ketones (test code = 88425-7) NEGATIVE NEGATIVE [facility] Gxawwhrkiaah1731-86-25 23:24:00* Test Item Value Reference Range Interpretation Comments Urine Urobilinogen (test code = 28370-9) 0.2 0.2-1 [facility] Acvhwrklt1892-38-58 23:24:00* Test Item Value Reference Range Interpretation Comments Urine Bilirubin (test code = 1978-6) NEGATIVE NEGATIVE [facility] Pkbjf5537-24-89 23:24:00* Test Item Value Reference Range Interpretation Comments Urine Blood (test code = 86206-4) NEGATIVE NEGATIVE [facility] CypressCT BRAIN [id number] 23:06:00 [facility] [address] [address] Patient Name: YOLETTE URIBE MR #: [id number] : 1975 Age/Sex: 43/F Req #: [id number] Adm Physician: Ordered by: CHEIKH PIKE MD Report #: [id number] Location: ER Room/Bed: Procedure: [id number] CT/CT DANAE SILVERMAN WO Exam Date: 01/23/19 [...] Ferrera MD Transcri bed By: JEMAL on 01/23/196 COPY TO: CHEIKH PIKE MD Blood Dbinfks3136-84-26 14:57:00* Test Item Value Reference Range Interpretation Comments Blood Culture (test code = 59546514) NO GROWTH AFTER 5 DAYS, FINAL REPORT [facility]Blood Thasvgv3429-99-15 14:57:00* Test Item Value Reference Range Interpretation Comments Blood Culture (test code = 10815192) NO GROWTH AFTER 5 DAYS, FINAL REPORT [facility]ressBlood Cqbumfw0230-32-95 14:57:00* Test Item Value Reference Range Interpretation Comments Blood Culture (test code = 69586932) NO GROWTH AFTER 5 DAYS, FINAL REPORT [facility] CypressWound Bcxrloi9352-26-22 08:26:00* Test Item Value Reference Range Interpretation Comments Wound Culture (test code = 6462-6) Organism: STREP AGALACTIAE GROUP B [facility] Byywkpa9567-74-56 08:26:00* Test Item Value Reference Range Interpretation Comments Wound Culture (test code = 6462-6) Organism: STREP AGALACTIAE GROUP B [facility] Ehzjisg1757-06-47 08:26:00* Test Item Value Reference Range Interpretation Comments Wound Culture (test code = 6462-6) Organism: STREP AGALACTIAE GROUP B [facility]ressVancomycin Level Ifoyok7317-71-03 09:55:00* Test Item Value Reference Range Interpretation Comments Vancomycin Level Trough (test code = 4092-3) -2.0 5.0-10.0 L [facility]ressVancomycin Level Griqfa8710-78-83 09:55:00* Test Item Value Reference Range Interpretation Comments Vancomycin Level Trough (test code = 4092-3) < 2.0 5.0-10.0 L [facility] [place]ressVancomycin Level Bbmvae3302-77-78 09:55:00* Test Item Value Reference Range Interpretation Comments Vancomycin Level Trough (test code = 4092-3) < 2.0 5.0-10.0 L [facility] [place]ressVancomycin Level Leadaz1702-15-65 09:55:00* Test Item Value Reference Range Interpretation Comments Vancomycin Level Trough (test code = 4092-3) < 2.0 5.0-10.0 L [facility] [place]ressBlood Sphswnm3231-37-60 09:17:00* Test Item Value Reference Range Interpretation Comments Blood Culture (test code = 25490389) NO GROWTH AFTER 48 HOURS [facility] Fmmegbh9061-72-37 08:15:00* Test Item Value Reference Range Interpretation Comments Bedside Glucose (test code = 95120-8) 347 70-120 H Meter ID: [id number] [facility] Glucose 2018-03-19 08:15:00* Test Item Value Reference Range Interpretation Comments Bedside Glucose (test code = 95451-7) 347 70-120 H Meter ID: [id number] [facility] CypressBedside Glucose 2018-03-19 08:15:00* Test Item Value Reference Range Interpretation Comments Bedside Glucose (test code = 24949-1) 347 70-120 H Meter ID: [id number] Health [facility] Glucose 2018-03-19 08:15:00* Test Item Value Reference Range Interpretation Comments Bedside Glucose (test code = 31198-3) 347 70-120 H Meter ID: [id number] West Regional Hospitalodium Level 2018-03-18 09:38:00* Test Item Value Reference Range Interpretation Comments Sodium Level (test code = 2951-2) 137 136-145 [facility]ressPotassium Apoil1028-17-57 09:38:00* Test Item Value Reference Range Interpretation Comments Potassium Level (test code = 2823-3) 4.4 3.5-5.1 [facility] CypressChloride Mbhde2107-42-98 09:38:00* Test Item Value Reference Range Interpretation Comments Chloride Level (test code = 2075-0) 104 98-107 [facility] [place]ressCarbon Dioxide Pzxtv5887-23-08 09:38:00* Test Item Value Reference Range Interpretation Comments Carbon Dioxide Level (test code = 2028-9) 25 22-29 [facility] CypressAnion Oll5548-15-98 09:38:00* Test Item Value Reference Range Interpretation Comments Anion Gap (test code = 60444-7) 12.4 8-16 [facility] [place]ressBlood Urea Ttkzauoz4102-29-73 09:38:00* Test Item Value Reference Range Interpretation Comments Blood Urea Nitrogen (test code = 3094-0) 10 7-26 [facility] CypressCreatinine2018-06-06 09:38:00* Test Item Value Reference Range Interpretation Comments Creatinine (test code = 2160-0) 0.77 0.57-1.11 [facility] CypressBUN/Creatinine Wgqhp1291-91-38 09:38:00* Test Item Value Reference Range Interpretation Comments BUN/Creatinine Ratio (test code = 3097-3) 13 6-25 [facility] CypressEstimat Glomerular Filtration Rate 2018-03-18 09:38:00* Test Item Value Reference Range Interpretation Comments Estimat Glomerular Filtration Rate (test code = 82160-6) 60- >60 Ranges were taken from the National Kidney Disease Education Program and the [facility] literature.Reference ranges:60 or greater: Bfhhtp02-89 ( for 3 consecutive months): Chronic kidney disease 15 or less: Kidney failureHCA Houston Healthcare North CypressGlucose Curoi9811-63-43 09:38:00* Test Item Value Reference Range Interpretation Comments Glucose Level (test code = ITY5763) 402 74-118 Results called to [Shell Syed RN] at 0937 on 03/18/18 by Wendie Madrigal. RB OK. [facility] CypressCalcium Calkw8777-36-62 09:38:00* Test Item Value Reference Range Interpretation Comments Calcium Level (test code = 50218-2) 9.5 8.4-10.2 [facility] Gaglv4503-15-24 09:38:00* Test Item Value Reference Range Interpretation Comments Sodium Level (test code = 2951-2) 137 136-145 [facility] CypressPotassium Anoyw0767-20-56 09:38:00* Test Item Value Reference Range Interpretation Comments Potassium Level (test code = 2823-3) 4.4 3.5-5.1 [facility] CypressChloride Aaavr6780-92-24 09:38:00* Test Item Value Reference Range Interpretation Comments Chloride Level (test code = 2075-0) 104 98-107 [facility] CypressCarbon Dioxide Kakpc7688-10-05 09:38:00* Test Item Value Reference Range Interpretation Comments Carbon Dioxide Level (test code = 2028-9) 25 22-29 [facility] CypressAnion Idw6452-70-25 09:38:00* Test Item Value Reference Range Interpretation Comments Anion Gap (test code = 72664-7) 12.4 8-16 [facility] [place]ressBlood Urea Jqrpddqt5481-48-77 09:38:00* Test Item Value Reference Range Interpretation Comments Blood Urea Nitrogen (test code = 3094-0) 10 05-07 [facility] CypressCreatinine2018-06-06 09:38:00* Test Item Value Reference Range Interpretation Comments Creatinine (test code = 2160-0) 0.77 0.57-1.11 [facility]ressBUN/Creatinine Kxgnp5432-74-93 09:38:00* Test Item Value Reference Range Interpretation Comments BUN/Creatinine Ratio (test code = 3097-3) 13 04-06 [facility] CypressEstimat Glomerular Filtration Rate 2018-03-18 09:38:00* Test Item Value Reference Range Interpretation Comments Estimat Glomerular Filtration Rate (test code = 210918206) > 60 >60 Ranges were taken from the National Kidney Disease Education Program and the [facility] literature.Reference ranges:60 or greater: Vrqzsp50-79 ( for 3 consecutive months): Chronic kidney disease 15 or less: Kidney failureHCA [facility] Healthcare [facility] CypressGlucose Sgvuh9594-10-02 09:38:00* Test Item Value Reference Range Interpretation Comments Glucose Level (test code = NDG7363) 402 74-118 HH Results called to [Shell Syed RN] at 0937 on 03/18/18 by Wendie Madrigal. RB OK. [facility] CypressCalcium Cbovk1717-37-73 09:38:00* Test Item Value Reference Range Interpretation Comments Calcium Level (test code = 32510-1) 9.5 8.4-10.2 [facility] Zujfd0399-83-94 09:38:00* Test Item Value Reference Range Interpretation Comments Sodium Level (test code = 2951-2) 137 136-145 [facility]ressPotassium Ewvnz5730-92-40 09:38:00* Test Item Value Reference Range Interpretation Comments Potassium Level (test code = 2823-3) 4.4 3.5-5.1 [facility] CypressChloride Ydpxh1290-76-10 09:38:00* Test Item Value Reference Range Interpretation Comments Chloride Level (test code = 2075-0) 104 98-107 [facility] CypressCarbon Dioxide Ndfci1331-76-87 09:38:00* Test Item Value Reference Range Interpretation Comments Carbon Dioxide Level (test code = 2028-9) 25 22-29 [facility] CypressAnion Ibo7995-13-86 09:38:00* Test Item Value Reference Range Interpretation Comments Anion Gap (test code = 53998-5) 12.4 8-16 [facility] [place]ressBlood Urea Qlongvux2294-64-87 09:38:00* Test Item Value Reference Range Interpretation Comments Blood Urea Nitrogen (test code = 3094-0) 10 7-26 [facility] CypressCreatinine2018-06-06 09:38:00* Test Item Value Reference Range Interpretation Comments Creatinine (test code = 2160-0) 0.77 0.57-1.11 [facility] CypressBUN/Creatinine Howfy8448-90-71 09:38:00* Test Item Value Reference Range Interpretation Comments BUN/Creatinine Ratio (test code = 3097-3) 13 6- [facility] CypressEstimat Glomerular Filtration Rate 2018-03-18 09:38:00* Test Item Value Reference Range Interpretation Comments Estimat Glomerular Filtration Rate (test code = 224056406) > 60 >60 Ranges were taken from the National Kidney Disease Education Program and the [facility] Foundation literature.Reference ranges:60 or greater: Owaqgt54-85 ( for 3 consecutive months): Chronic kidney disease 15 or less: Kidney failureHCA [facility] Healthcare North CypressGlucose Woiwj8613-69-55 09:38:00* Test Item Value Reference Range Interpretation Comments Glucose Level (test code = FCC0055) 402 74-118 HH Results called to [Shell Syed RN] at 0937 on 03/18/18 by Wendie Madrigal. RB OK. [facility] CypressCalcium Dklld3818-60-21 09:38:00* Test Item Value Reference Range Interpretation Comments Calcium Level (test code = 43804-3) 9.5 8.4-10.2 [facility] Jojus7611-15-23 09:38:00* Test Item Value Reference Range Interpretation Comments Sodium Level (test code = 2951-2) 137 136-145 [facility] CypressPotassium Vxafs4599-68-43 09:38:00* Test Item Value Reference Range Interpretation Comments Potassium Level (test code = 2823-3) 4.4 3.5-5.1 [facility] CypressChloride Jcgmf4414-56-40 09:38:00* Test Item Value Reference Range Interpretation Comments Chloride Level (test code = 2075-0) 104 98-107 [facility] CypressCarbon Dioxide Rzsjd9799-58-80 09:38:00* Test Item Value Reference Range Interpretation Comments Carbon Dioxide Level (test code = 2028-9) 25 22-29 [facility] CypressAnion Dal7508-39-74 09:38:00* Test Item Value Reference Range Interpretation Comments Anion Gap (test code = 78092-3) 12.4 8-16 [facility] [place]ressBlood Urea Monvtrro6110-39-08 09:38:00* Test Item Value Reference Range Interpretation Comments Blood Urea Nitrogen (test code = 3094-0) 10 7-26 [facility] CypressCreatinine2018-06-06 09:38:00* Test Item Value Reference Range Interpretation Comments Creatinine (test code = 2160-0) 0.77 0.57-1.11 [facility] CypressBUN/Creatinine Rsgey1905-25-76 09:38:00* Test Item Value Reference Range Interpretation Comments BUN/Creatinine Ratio (test code = 3097-3) 13 6-25 [facility] CypressEstimat Glomerular Filtration Rate 2018-03-18 09:38:00* Test Item Value Reference Range Interpretation Comments Estimat Glomerular Filtration Rate (test code = 320480589) > 60 >60 Ranges were taken from the National Kidney Disease Education Program and the [facility] Foundation literature.Reference ranges:60 or greater: Wjbafz43-64 ( for 3 consecutive months): Chronic kidney disease 15 or less: Kidney failureHCA [facility] Healthcare North CypressGlucose Wkuup6901-79-28 09:38:00* Test Item Value Reference Range Interpretation Comments Glucose Level (test code = OEZ0835) 532 14-118 Results called to [Shell Syed RN] at 0937 on 03/18/18 by Wendie Madrigal. RB OK. [facility] CypressCalcium Hgupb9110-38-97 09:38:00* Test Item Value Reference Range Interpretation Comments Calcium Level (test code = 62653-7) 9.5 8.4-10.2 [facility] CypressWhite Blood Googj8435-16-56 09:34:00* Test Item Value Reference Range Interpretation Comments White Blood Count (test code = 6690-2) 6.36 4.8-10.8 [facility] CypressRed Blood Zwogn7404-12-75 09:34:00* Test Item Value Reference Range Interpretation Comments Red Blood Count (test code = 789-8) 3.86 3.6-5.1 [facility] CypressHemoglobin2018-06-06 09:34:00* Test Item Value Reference Range Interpretation Comments Hemoglobin (test code = 96334-3) 11.5 12.0-16.0 L [facility] CypressHematocrit2018-06-06 09:34:00* Test Item Value Reference Range Interpretation Comments Hematocrit (test code = 4544-3) 33.4 34.2-44.1 L [facility] CypressMean Corpuscular Dxmkov8169-35-80 09:34:00* Test Item Value Reference Range Interpretation Comments Mean Corpuscular Volume (test code = 787-2) 86.5 81-99 [facility] CypressMean Corpuscular Wkosilojvw7678-95-99 09:34:00* Test Item Value Reference Range Interpretation Comments Mean Corpuscular Hemoglobin (test code = 785-6) 29.8 28-32 [facility] CypressMean Corpuscular Hemoglobin Concent 2018-03-18 09:34:00* Test Item Value Reference Range Interpretation Comments Mean Corpuscular Hemoglobin Concent (test code = 786-4) 34.4 31-35 [facility] CypressRed Cell Distribution Htclt7750-77-55 09:34:00* Test Item Value Reference Range Interpretation Comments Red Cell Distribution Width (test code = 83716-2) 12.4 11.7 -14.4 [facility] CypressPlatelet Stlfx4015-30-03 09:34:00* Test Item Value Reference Range Interpretation Comments Platelet Count (test code = 777-3) 205 140-360 [facility]ressNeutrophils (%) (Auto)2018-03-18 09:34:00 * Test Item Value Reference Range Interpretation Comments Neutrophils (%) (Auto) (test code = 00229-8) 62.4 38.7-80.0 [facility] CypressLymphocytes (%) (Auto)2018-03-18 09:34:00 * Test Item Value Reference Range Interpretation Comments Lymphocytes (%) (Auto) (test code = 736-9) 30.3 18.0-39.1 [facility]ressMonocytes (%) (Auto)2018-03-18 09:34:00* Test Item Value Reference Range Interpretation Comments Monocytes (%) (Auto) (test code = 5905-5) 6.6 4.4-11.3 [facility]ressEosinophils (%) (Auto)2018-03-18 09:34:00 * Test Item Value Reference Range Interpretation Comments Eosinophils (%) (Auto) (test code = 713-8) 0.2 0.0-6.0 [facility]ressBasophils (%) (Auto)2018-03-18 09:34:00* Test Item Value Reference Range Interpretation Comments Basophils (%) (Auto) (test code = 706-2) 0.3 0.0-1.0 [facility]ressIM GRANULOCYTES %2018-03-18 09:34:00* Test Item Value Reference Range Interpretation Comments IM GRANULOCYTES % (test code = IM GRANULOCYTES %) 0.2 0.0- 1.0 [facility]ressNeutrophils # (Auto)2018-03-18 09:34:00* Test Item Value Reference Range Interpretation Comments Neutrophils # (Auto) (test code = 751-8) 4.0 2.1-6.9 [facility]ressLymphocytes # (Auto)2018-03-18 09:34:00* Test Item Value Reference Range Interpretation Comments Lymphocytes # (Auto) (test code = 29441-8) 1.9 1.0-3.2 [facility]ressMonocytes # (Auto)2018-03-18 09:34:00* Test Item Value Reference Range Interpretation Comments Monocytes # (Auto) (test code = 742-7) 0.4 0.2-0.8 [facility]ressEosinophils # (Auto)2018-03-18 09:34:00* Test Item Value Reference Range Interpretation Comments Eosinophils # (Auto) (test code = 711-2) 0.0 0.0-0.4 [facility]ressBasophils # (Auto)2018-03-18 09:34:00* Test Item Value Reference Range Interpretation Comments Basophils # (Auto) (test code = 704-7) 0.0 0.0-0.1 [facility] CypressAbsolute Immature Granulocyte (auto 2018-03-18 09:34:00* Test Item Value Reference Range Interpretation Comments Absolute Immature Granulocyte (auto (chiquita t code = Absolute Immature Granulocyte (auto) 0.01 0-0.1 [facility] CypressWhite Blood Wvbti7185-08-06 09:34:00* Test Item Value Reference Range Interpretation Comments White Blood Count (test code = 6690-2) 6.36 4.8-10.8 [facility] CypressRed Blood Eucts9577-99-42 09:34:00* Test Item Value Reference Range Interpretation Comments Red Blood Count (test code = 789-8) 3.86 3.6-5.1 [facility] CypressHemoglobin2018-06-06 09:34:00* Test Item Value Reference Range Interpretation Comments Hemoglobin (test code = 35640-5) 11.5 12.0-16.0 L [facility]ressHematocrit2018-06-06 09:34:00* Test Item Value Reference Range Interpretation Comments Hematocrit (test code = 4544-3) 33.4 34.2-44.1 L [facility] CypressMean Corpuscular Kywqlq3279-43-10 09:34:00* Test Item Value Reference Range Interpretation Comments Mean Corpuscular Volume (test code = 787-2) 86.5 81-99 [facility]ressMean Corpuscular Zwwafwxboc1056-18-65 09:34:00* Test Item Value Reference Range Interpretation Comments Mean Corpuscular Hemoglobin (test code = 785-6) 29.8 28-32 [facility] CypressMean Corpuscular Hemoglobin Concent 2018-03-18 09:34:00* Test Item Value Reference Range Interpretation Comments Mean Corpuscular Hemoglobin Concent (test code = 786-4) 34.4 31-35 [facility] CypressRed Cell Distribution Roesq0693-61-60 09:34:00* Test Item Value Reference Range Interpretation Comments Red Cell Distribution Width (test code = 21644-8) 12.4 11.7 -14.4 [facility] CypressPlatelet Ockcu8990-12-83 09:34:00* Test Item Value Reference Range Interpretation Comments Platelet Count (test code = 777-3) 205 140-360 [facility] CypressNeutrophils (%) (Auto)2018-03-18 09:34:00 * Test Item Value Reference Range Interpretation Comments Neutrophils (%) (Auto) (test code = 42760-1) 62.4 38.7-80.0 [facility] CypressLymphocytes (%) (Auto)2018-03-18 09:34:00 * Test Item Value Reference Range Interpretation Comments Lymphocytes (%) (Auto) (test code = 736-9) 30.3 18.0-39.1 [facility]ressMonocytes (%) (Auto)2018-03-18 09:34:00* Test Item Value Reference Range Interpretation Comments Monocytes (%) (Auto) (test code = 5905-5) 6.6 4.4-11.3 [facility]ressEosinophils (%) (Auto)2018-03-18 09:34:00 * Test Item Value Reference Range Interpretation Comments Eosinophils (%) (Auto) (test code = 713-8) 0.2 0.0-6.0 [facility]ressBasophils (%) (Auto)2018-03-18 09:34:00* Test Item Value Reference Range Interpretation Comments Basophils (%) (Auto) (test code = 706-2) 0.3 0.0-1.0 [facility]ressIM GRANULOCYTES %2018-03-18 09:34:00* Test Item Value Reference Range Interpretation Comments IM GRANULOCYTES % (test code = IM GRANULOCYTES %) 0.2 0.0- 1.0 [facility]ressNeutrophils # (Auto)2018-03-18 09:34:00* Test Item Value Reference Range Interpretation Comments Neutrophils # (Auto) (test code = 751-8) 4.0 2.1-6.9 [facility]ressLymphocytes # (Auto)2018-03-18 09:34:00* Test Item Value Reference Range Interpretation Comments Lymphocytes # (Auto) (test code = 24112-7) 1.9 1.0-3.2 [facility]ressMonocytes # (Auto)2018-03-18 09:34:00* Test Item Value Reference Range Interpretation Comments Monocytes # (Auto) (test code = 742-7) 0.4 0.2-0.8 [facility]ressEosinophils # (Auto)2018-03-18 09:34:00* Test Item Value Reference Range Interpretation Comments Eosinophils # (Auto) (test code = 711-2) 0.0 0.0-0.4 [facility]ressBasophils # (Auto)2018-03-18 09:34:00* Test Item Value Reference Range Interpretation Comments Basophils # (Auto) (test code = 704-7) 0.0 0.0-0.1 [facility] CypressAbsolute Immature Granulocyte (auto 2018-03-18 09:34:00* Test Item Value Reference Range Interpretation Comments Absolute Immature Granulocyte (auto (chiquita t code = Absolute Immature Granulocyte (auto) 0.01 0-0.1 [facility]ressWhite Blood Cevri5294-99-52 09:34:00* Test Item Value Reference Range Interpretation Comments White Blood Count (test code = 6690-2) 6.36 4.8-10.8 [facility] CypressRed Blood Qnmax3211-00-11 09:34:00* Test Item Value Reference Range Interpretation Comments Red Blood Count (test code = 789-8) 3.86 3.6-5.1 [facility] CypressHemoglobin2018-06-06 09:34:00* Test Item Value Reference Range Interpretation Comments Hemoglobin (test code = 98072-3) 11.5 12.0-16.0 L [facility] CypressHematocrit2018-06-06 09:34:00* Test Item Value Reference Range Interpretation Comments Hematocrit (test code = 4544-3) 33.4 34.2-44.1 L [facility] CypressMean Corpuscular Stqtyf8639-86-15 09:34:00* Test Item Value Reference Range Interpretation Comments Mean Corpuscular Volume (test code = 787-2) 86.5 81-99 [facility] CypressMean Corpuscular Splxuzuztx8867-87-92 09:34:00* Test Item Value Reference Range Interpretation Comments Mean Corpuscular Hemoglobin (test code = 785-6) 29.8 28-32 [facility] CypressMean Corpuscular Hemoglobin Concent 2018-03-18 09:34:00* Test Item Value Reference Range Interpretation Comments Mean Corpuscular Hemoglobin Concent (test code = 786-4) 34.4 31-35 [facility] CypressRed Cell Distribution Pvblz4876-24-37 09:34:00* Test Item Value Reference Range Interpretation Comments Red Cell Distribution Width (test code = 16539-0) 12.4 11.7 -14.4 [facility] CypressPlatelet Jbwvl7995-06-03 09:34:00* Test Item Value Reference Range Interpretation Comments Platelet Count (test code = 777-3) 205 140-360 [facility] CypressNeutrophils (%) (Auto)2018-03-18 09:34:00 * Test Item Value Reference Range Interpretation Comments Neutrophils (%) (Auto) (test code = 20295-3) 62.4 38.7-80.0 [facility] CypressLymphocytes (%) (Auto)2018-03-18 09:34:00 * Test Item Value Reference Range Interpretation Comments Lymphocytes (%) (Auto) (test code = 736-9) 30.3 18.0-39.1 [facility]ressMonocytes (%) (Auto)2018-03-18 09:34:00* Test Item Value Reference Range Interpretation Comments Monocytes (%) (Auto) (test code = 5905-5) 6.6 4.4-11.3 [facility]ressEosinophils (%) (Auto)2018-03-18 09:34:00 * Test Item Value Reference Range Interpretation Comments Eosinophils (%) (Auto) (test code = 713-8) 0.2 0.0-6.0 [facility]ressBasophils (%) (Auto)2018-03-18 09:34:00* Test Item Value Reference Range Interpretation Comments Basophils (%) (Auto) (test code = 706-2) 0.3 0.0-1.0 [facility]ressIM GRANULOCYTES %2018-03-18 09:34:00* Test Item Value Reference Range Interpretation Comments IM GRANULOCYTES % (test code = IM GRANULOCYTES %) 0.2 0.0- 1.0 [facility]ressNeutrophils # (Auto)2018-03-18 09:34:00* Test Item Value Reference Range Interpretation Comments Neutrophils # (Auto) (test code = 751-8) 4.0 2.1-6.9 [facility] CypressLymphocytes # (Auto)2018-03-18 09:34:00* Test Item Value Reference Range Interpretation Comments Lymphocytes # (Auto) (test code = 38750-7) 1.9 1.0-3.2 [facility] CypressMonocytes # (Auto)2018-03-18 09:34:00* Test Item Value Reference Range Interpretation Comments Monocytes # (Auto) (test code = 742-7) 0.4 0.2-0.8 [facility]ressEosinophils # (Auto)2018-03-18 09:34:00* Test Item Value Reference Range Interpretation Comments Eosinophils # (Auto) (test code = 711-2) 0.0 0.0-0.4 [facility]ressBasophils # (Auto)2018-03-18 09:34:00* Test Item Value Reference Range Interpretation Comments Basophils # (Auto) (test code = 704-7) 0.0 0.0-0.1 [facility] CypressAbsolute Immature Granulocyte (auto 2018-03-18 09:34:00* Test Item Value Reference Range Interpretation Comments Absolute Immature Granulocyte (auto (chiquita t code = Absolute Immature Granulocyte (auto) 0.01 0-0.1 [facility]ressWhite Blood Stksa2273-00-18 09:34:00* Test Item Value Reference Range Interpretation Comments White Blood Count (test code = 6690-2) 6.36 4.8-10.8 [facility] CypressRed Blood Yeeql3890-27-08 09:34:00* Test Item Value Reference Range Interpretation Comments Red Blood Count (test code = 789-8) 3.86 3.6-5.1 [facility] CypressHemoglobin2018-06-06 09:34:00* Test Item Value Reference Range Interpretation Comments Hemoglobin (test code = 92104-8) 11.5 12.0-16.0 L [facility] CypressHematocrit2018-06-06 09:34:00* Test Item Value Reference Range Interpretation Comments Hematocrit (test code = 4544-3) 33.4 34.2-44.1 L [facility] CypressMean Corpuscular Vswgli4942-64-63 09:34:00* Test Item Value Reference Range Interpretation Comments Mean Corpuscular Volume (test code = 787-2) 86.5 81-99 [facility] CypressMean Corpuscular Jdxbgkrpbj3834-55-21 09:34:00* Test Item Value Reference Range Interpretation Comments Mean Corpuscular Hemoglobin (test code = 785-6) 29.8 28-32 [facility]ressMean Corpuscular Hemoglobin Concent 2018-03-18 09:34:00* Test Item Value Reference Range Interpretation Comments Mean Corpuscular Hemoglobin Concent (test code = 786-4) 34.4 31-35 [facility] CypressRed Cell Distribution Wtneg2297-55-04 09:34:00* Test Item Value Reference Range Interpretation Comments Red Cell Distribution Width (test code = 66389-1) 12.4 11.7 -14.4 [facility] CypressPlatelet Pfzim4617-21-73 09:34:00* Test Item Value Reference Range Interpretation Comments Platelet Count (test code = 777-3) 205 140-360 [facility] CypressNeutrophils (%) (Auto)2018-03-18 09:34:00 * Test Item Value Reference Range Interpretation Comments Neutrophils (%) (Auto) (test code = 68109-1) 62.4 38.7-80.0 [facility] CypressLymphocytes (%) (Auto)2018-03-18 09:34:00 * Test Item Value Reference Range Interpretation Comments Lymphocytes (%) (Auto) (test code = 736-9) 30.3 18.0-39.1 [facility]ressMonocytes (%) (Auto)2018-03-18 09:34:00* Test Item Value Reference Range Interpretation Comments Monocytes (%) (Auto) (test code = 5905-5) 6.6 4.4-11.3 [facility]ressEosinophils (%) (Auto)2018-03-18 09:34:00 * Test Item Value Reference Range Interpretation Comments Eosinophils (%) (Auto) (test code = 713-8) 0.2 0.0-6.0 [facility]ressBasophils (%) (Auto)2018-03-18 09:34:00* Test Item Value Reference Range Interpretation Comments Basophils (%) (Auto) (test code = 706-2) 0.3 0.0-1.0 [facility]ressIM GRANULOCYTES %2018-03-18 09:34:00* Test Item Value Reference Range Interpretation Comments IM GRANULOCYTES % (test code = IM GRANULOCYTES %) 0.2 0.0- 1.0 [facility]ressNeutrophils # (Auto)2018-03-18 09:34:00* Test Item Value Reference Range Interpretation Comments Neutrophils # (Auto) (test code = 751-8) 4.0 2.1-6.9 [facility]ressLymphocytes # (Auto)2018-03-18 09:34:00* Test Item Value Reference Range Interpretation Comments Lymphocytes # (Auto) (test code = 21235-5) 1.9 1.0-3.2 [facility] CypressMonocytes # (Auto)2018-03-18 09:34:00* Test Item Value Reference Range Interpretation Comments Monocytes # (Auto) (test code = 742-7) 0.4 0.2-0.8 [facility]ressEosinophils # (Auto)2018-03-18 09:34:00* Test Item Value Reference Range Interpretation Comments Eosinophils # (Auto) (test code = 711-2) 0.0 0.0-0.4 [facility]ressBasophils # (Auto)2018-03-18 09:34:00* Test Item Value Reference Range Interpretation Comments Basophils # (Auto) (test code = 704-7) 0.0 0.0-0.1 [facility] CypressAbsolute Immature Granulocyte (auto 2018-03-18 09:34:00* Test Item Value Reference Range Interpretation Comments Absolute Immature Granulocyte (auto (chiquita t code = Absolute Immature Granulocyte (auto) 0.01 0-0.1 [facility] CypressErythrocyte Sedimentation Hsdd8509-58-27 10:22:00* Test Item Value Reference Range Interpretation Comments Erythrocyte Sedimentation Rate (test code = 4537-7) 20 0- 20 [facility] CypressErythrocyte Sedimentation Gqcb3732-29-73 10:22:00* Test Item Value Reference Range Interpretation Comments Erythrocyte Sedimentation Rate (test code = 4537-7) 20 0- 20 [facility] CypressErythrocyte Sedimentation Fcef3091-05-32 10:22:00* Test Item Value Reference Range Interpretation Comments Erythrocyte Sedimentation Rate (test code = 4537-7) 20 0- 20 [facility] CypressErythrocyte Sedimentation Gysh7176-52-95 10:22:00* Test Item Value Reference Range Interpretation Comments Erythrocyte Sedimentation Rate (test code = 4537-7) 20 0- 20 [facility] CypressTriglycerides Cigsf4851-43-91 09:40:00* Test Item Value Reference Range Interpretation Comments Triglycerides Level (test code = 2571-8) 160 0-149 H [facility] CypressCholesterol Cazlw9317-40-05 09:40:00* Test Item Value Reference Range Interpretation Comments Cholesterol Level (test code = 2093-3) 241 0-199 H Less than 200 mg/dL Low Wwew718 - 239 mg/dL Borderline Hxyn366 m g/dl and greater High Risk [facility] CypressLDL Ovanzkrpjna9233-14-26 09:40:00* Test Item Value Reference Range Interpretation Comments LDL Cholesterol (test code = 2089-1) 165 60-130 H [facility] CypressHDL Ipsdtzptfpu7814-58-59 09:40:00* Test Item Value Reference Range Interpretation Comments HDL Cholesterol (test code = 2085-9) 44 40-60 [facility] CypressCholesterol/HDL Raanu9532-89-09 09:40:00 * Test Item Value Reference Range Interpretation Comments Cholesterol/HDL Ratio (test code = 9830-1) 5.5 3.0-3.6 H [facility] CypressTriglycerides Okkdt3491-38-44 09:40:00* Test Item Value Reference Range Interpretation Comments Triglycerides Level (test code = 2571-8) 160 0-149 H [facility] CypressCholesterol Glput4078-97-81 09:40:00* Test Item Value Reference Range Interpretation Comments Cholesterol Level (test code = 2093-3) 241 0-199 H Less than 200 mg/dL Low Hfkp260 - 239 mg/dL Borderline Vnkt380 m g/dl and greater High Risk [facility] CypressLDL Nbwilkcnhfc2200-65-77 09:40:00* Test Item Value Reference Range Interpretation Comments LDL Cholesterol (test code = 2089-1) 165 60-130 H [facility] Lrihrkxjmke8430-79-74 09:40:00* Test Item Value Reference Range Interpretation Comments HDL Cholesterol (test code = 2085-9) 44 40-60 [facility]ressCholesterol/HDL Yxhol3307-00-43 09:40:00 * Test Item Value Reference Range Interpretation Comments Cholesterol/HDL Ratio (test code = 9830-1) 5.5 3.0-3.6 H [facility] CypressTriglycerides Nrayi6182-08-16 09:40:00* Test Item Value Reference Range Interpretation Comments Triglycerides Level (test code = 2571-8) 160 0-149 H [facility] CypressCholesterol Ktbtg8627-07-03 09:40:00* Test Item Value Reference Range Interpretation Comments Cholesterol Level (test code = 2093-3) 241 0-199 H Less than 200 mg/dL Low Sexh997 - 239 mg/dL Borderline Xxei734 m g/dl and greater High Risk [facility] CypressLDL Xszymccwyxv4416-34-60 09:40:00* Test Item Value Reference Range Interpretation Comments LDL Cholesterol (test code = 2089-1) 165 60-130 H [facility] Mqopckkbqrr4934-60-43 09:40:00* Test Item Value Reference Range Interpretation Comments HDL Cholesterol (test code = 2085-9) 44 40-60 [facility]ressCholesterol/HDL Mlwuj5001-50-11 09:40:00 * Test Item Value Reference Range Interpretation Comments Cholesterol/HDL Ratio (test code = 9830-1) 5.5 3.0-3.6 H [facility] CypressTriglycerides Kefkf2617-04-06 09:40:00* Test Item Value Reference Range Interpretation Comments Triglycerides Level (test code = 2571-8) 160 0-149 H [facility] CypressCholesterol Nlplw7882-63-58 09:40:00* Test Item Value Reference Range Interpretation Comments Cholesterol Level (test code = 2093-3) 241 0-199 H Less than 200 mg/dL Low Arfd661 - 239 mg/dL Borderline Xrsg320 m g/dl and greater High Risk [facility] CypressLDL Fkphwiqeyll8109-07-65 09:40:00* Test Item Value Reference Range Interpretation Comments LDL Cholesterol (test code = 2089-1) 165 60-130 H [facility] CypressHDL Lzrzbmtbnvy0899-14-68 09:40:00* Test Item Value Reference Range Interpretation Comments HDL Cholesterol (test code = 2085-9) 44 40-60 [facility]ressCholesterol/HDL Yadec1653-82-51 09:40:00 * Test Item Value Reference Range Interpretation Comments Cholesterol/HDL Ratio (test code = 9830-1) 5.5 3.0-3.6 H [facility] CypressHemoglobin A1c Vleqqhk1164-26-57 09:33:00 * Test Item Value Reference Range Interpretation Comments Hemoglobin A1c Percent (test code = Hemoglobin A1c Percent) 14.6 4.0-7.0 H [facility] CypressHemoglobin A1c Modpbvo2156-41-57 09:33:00 * Test Item Value Reference Range Interpretation Comments Hemoglobin A1c Percent (test code = Hemoglobin A1c Percent) 14.6 4.0-7.0 H [facility] CypressHemoglobin A1c Yhpocmi3065-51-23 09:33:00 * Test Item Value Reference Range Interpretation Comments Hemoglobin A1c Percent (test code = Hemoglobin A1c Percent) 14.6 4.0-7.0 H [facility] CypressHemoglobin A1c Ewlmblh1471-21-83 09:33:00 * Test Item Value Reference Range Interpretation Comments Hemoglobin A1c Percent (test code = Hemoglobin A1c Percent) 14.6 4.0-7.0 H [facility] CypressTotal Mwxfvxvjq9483-34-41 22:35:00* Test Item Value Reference Range Interpretation Comments Total Bilirubin (test code = 1975-2) 0.2 0.2-1.2 [facility] CypressAspartate Amino Transf (AST/SGOT) 2018-03-16 22:35:00* Test Item Value Reference Range Interpretation Comments Aspartate Amino Transf (AST/SGOT) (test code = Aspartate Amino Transf (AST/SGOT)) 10 5-34 [facility] CypressAlanine Aminotransferase (ALT/SGPT) 2018-03-16 22:35:00* Test Item Value Reference Range Interpretation Comments Alanine Aminotransferase (ALT/SGPT) (test code = 1742-6) 15 0-55 [facility] CypressTotal Qwhqtdz7368-51-03 22:35:00* Test Item Value Reference Range Interpretation Comments Total Protein (test code = 2885-2) 7.3 6.5-8.1 [facility] CypressAlbumin2018-06-04 22:35:00* Test Item Value Reference Range Interpretation Comments Albumin (test code = 1751-7) 3.8 3.5-5.0 [facility] CypressGlobulin2018-06-04 22:35:00* Test Item Value Reference Range Interpretation Comments Globulin (test code = 56566-9) 3.5 2.3-3.5 [facility] CypressAlbumin/Globulin Vnsjv3217-05-52 22:35:00 * Test Item Value Reference Range Interpretation Comments Albumin/Globulin Ratio (test code = 1759-0) 1.1 0.8-2.0 [facility] CypressAlkaline Mmpdfladbzh7948-82-28 22:35:00* Test Item Value Reference Range Interpretation Comments Alkaline Phosphatase (test code = 6768-6) 150 40-150 [facility] CypressTotal Soacsnzkj4464-71-85 22:35:00* Test Item Value Reference Range Interpretation Comments Total Bilirubin (test code = 1975-2) 0.2 0.2-1.2 [facility] CypressAspartate Amino Transf (AST/SGOT) 2018-03-16 22:35:00* Test Item Value Reference Range Interpretation Comments Aspartate Amino Transf (AST/SGOT) (test code = Aspartate Amino Transf (AST/SGOT)) 10 34 [facility] CypressAlanine Aminotransferase (ALT/SGPT) 2018-03-16 22:35:00* Test Item Value Reference Range Interpretation Comments Alanine Aminotransferase (ALT/SGPT) (test code = 1742-6) 15 0-55 [facility] CypressTotal Ttrexti6682-59-43 22:35:00* Test Item Value Reference Range Interpretation Comments Total Protein (test code = 2885-2) 7.3 6.5-8.1 [facility] CypressAlbumin2018-06-04 22:35:00* Test Item Value Reference Range Interpretation Comments Albumin (test code = 1751-7) 3.8 3.5-5.0 [facility] CypressGlobulin2018-06-04 22:35:00* Test Item Value Reference Range Interpretation Comments Globulin (test code = 84721-3) 3.5 2.3-3.5 [facility] CypressAlbumin/Globulin Yprqt5049-26-71 22:35:00 * Test Item Value Reference Range Interpretation Comments Albumin/Globulin Ratio (test code = 1759-0) 1.1 0.8-2.0 [facility] CypressAlkaline Ugpvlfbhwjm5686-14-09 22:35:00* Test Item Value Reference Range Interpretation Comments Alkaline Phosphatase (test code = 6768-6) 150 40-150 [facility] CypressTotal Mjtjvvvau4537-14-55 22:35:00* Test Item Value Reference Range Interpretation Comments Total Bilirubin (test code = 1975-2) 0.2 0.2-1.2 [facility] CypressAspartate Amino Transf (AST/SGOT) 2018-03-16 22:35:00* Test Item Value Reference Range Interpretation Comments Aspartate Amino Transf (AST/SGOT) (test code = Aspartate Amino Transf (AST/SGOT)) 10 5-34 [facility] CypressAlanine Aminotransferase (ALT/SGPT) 2018-03-16 22:35:00* Test Item Value Reference Range Interpretation Comments Alanine Aminotransferase (ALT/SGPT) (test code = 1742-6) 15 0-55 [facility] CypressTotal Ivuvsvx8908-58-47 22:35:00* Test Item Value Reference Range Interpretation Comments Total Protein (test code = 2885-2) 7.3 6.5-8.1 [facility] CypressAlbumin2018-06-04 22:35:00* Test Item Value Reference Range Interpretation Comments Albumin (test code = 1751-7) 3.8 3.5-5.0 [facility]obulin[facility] 22:35:00* Test Item Value Reference Range Interpretation Comments Globulin (test code = 53061-6) 3.5 2.3-3.5 [facility]ressAlbumin/Globulin Mzlcu7976-75-85 22:35:00 * Test Item Value Reference Range Interpretation Comments Albumin/Globulin Ratio (test code = 1759-0) 1.1 0.8-2.0 [facility] CypressAlkaline Uwwodqlmbvw1780-73-75 22:35:00* Test Item Value Reference Range Interpretation Comments Alkaline Phosphatase (test code = 6768-6) 150 40-150 [facility] CypressTotal Otontdulk0705-55-10 22:35:00* Test Item Value Reference Range Interpretation Comments Total Bilirubin (test code = 1975-2) 0.2 0.2-1.2 [facility] CypressAspartate Amino Transf (AST/SGOT) 2018-03-16 22:35:00* Test Item Value Reference Range Interpretation Comments Aspartate Amino Transf (AST/SGOT) (test code = Aspartate Amino Transf (AST/SGOT)) 10 5-34 [facility] CypressAlanine Aminotransferase (ALT/SGPT) 2018-03-16 22:35:00* Test Item Value Reference Range Interpretation Comments Alanine Aminotransferase (ALT/SGPT) (test code = 1742-6) 15 0-55 [facility]ressTotal Ytqgrxb9419-62-58 22:35:00* Test Item Value Reference Range Interpretation Comments Total Protein (test code = 2885-2) 7.3 6.5-8.1 [facility] CypressAlbumin2018-06-04 22:35:00* Test Item Value Reference Range Interpretation Comments Albumin (test code = 1751-7) 3.8 3.5-5.0 [facility]ressGlobulin2018-06-04 22:35:00* Test Item Value Reference Range Interpretation Comments Globulin (test code = 13159-9) 3.5 2.3-3.5 [facility]ressAlbumin/Globulin Xmdih2928-15-52 22:35:00 * Test Item Value Reference Range Interpretation Comments Albumin/Globulin Ratio (test code = 1759-0) 1.1 0.8-2.0 [facility] CypressAlkaline Icmoytlmufr3845-85-80 22:35:00* Test Item Value Reference Range Interpretation Comments Alkaline Phosphatase (test code = 6768-6) 150 40-150 [facility] Chorionic Gonadotropin, Qual 2018-03-16 22:23:00* Test Item Value Reference Range Interpretation Comments Human Chorionic Gonadotropin, Qual (test code = 2118-8) NEGATIVE NEGATIVE [facility] Chorionic Gonadotropin, Qual 2018-03-16 22:23:00* Test Item Value Reference Range Interpretation Comments Human Chorionic Gonadotropin, Qual (test code = 8-8) NEGATIVE NEGATIVE [facility] Chorionic Gonadotropin, Qual 2018-03-16 22:23:00* Test Item Value Reference Range Interpretation Comments Human Chorionic Gonadotropin, Qual (test code = 8-8) NEGATIVE NEGATIVE [facility] Chorionic Gonadotropin, Qual 2018-03-16 22:23:00* Test Item Value Reference Range Interpretation Comments Human Chorionic Gonadotropin, Qual (test code = 2118-8) NEGATIVE [facility]GATIVE [facility] Orwbuks9072-36-82 18:08:00* Test Item Value Reference Range Interpretation Comments Blood Culture (test code = 29684565) NO GROWTH AFTER 5 DAYS, FINAL REPORT [facility] Aroisil3673-45-90 18:08:00* Test Item Value Reference Range Interpretation Comments Blood Culture (test code = 06796855) NO GROWTH AFTER 5 DAYS, FINAL REPORT [facility] Ukafgcc2809-27-14 18:08:00* Test Item Value Reference Range Interpretation Comments Blood Culture (test code = 70243436) NO GROWTH AFTER 5 DAYS, FINAL REPORT [facility] Zjcscws0244-03-74 18:08:00* Test Item Value Reference Range Interpretation Comments Blood Culture (test code = 08552939) NO GROWTH AFTER 5 DAYS, FINAL REPORT [facility] CypressLactic Acid Jzoci0631-29-28 00:19:00* Test Item Value Reference Range Interpretation Comments Lactic Acid Level (test code = Lactic Acid Level) 13.4 4.5- 19.8 [facility] CypressLactic Acid Yhcom0411-01-88 00:19:00* Test Item Value Reference Range Interpretation Comments Lactic Acid Level (test code = Lactic Acid Level) 13.4 4.5- 19.8 [facility] CypressLactic Acid Lfbaz3186-84-14 00:19:00* Test Item Value Reference Range Interpretation Comments Lactic Acid Level (test code = Lactic Acid Level) 13.4 4.5- 19.8 [facility] CypressLactic Acid Kdecs1696-51-70 00:19:00* Test Item Value Reference Range Interpretation Comments Lactic Acid Level (test code = Lactic Acid Level) 13.4 4.5- 19.8 [facility] Qalek1939-11-26 00:17:00* Test Item Value Reference Range Interpretation Comments Sodium Level (test code = 2951-2) 134 136-145 L [facility]ressPotassium Xvggp7577-08-40 00:17:00* Test Item Value Reference Range Interpretation Comments Potassium Level (test code = 2823-3) 3.4 3.5-5.1 L [facility] CypressChloride Gjqqh7145-65-69 00:17:00* Test Item Value Reference Range Interpretation Comments Chloride Level (test code = 2075-0) 102 98-107 [facility] CypressCarbon Dioxide Rwmov2634-87-03 00:17:00* Test Item Value Reference Range Interpretation Comments Carbon Dioxide Level (test code = 2028-9) 23 22-29 [facility] CypressAnion Ied7537-22-20 00:17:00* Test Item Value Reference Range Interpretation Comments Anion Gap (test code = 78637-3) 12.4 8-16 [facility] CypressBlood Urea Oqzluupd6651-38-61 00:17:00* Test Item Value Reference Range Interpretation Comments Blood Urea Nitrogen (test code = 3094-0) 5 7-26 L [facility] CypressCreatinine2017-06-20 00:17:00* Test Item Value Reference Range Interpretation Comments Creatinine (test code = 2160-0) 0.71 0.57-1.11 [facility]ressBUN/Creatinine Hdemv1207-51-39 00:17:00* Test Item Value Reference Range Interpretation Comments BUN/Creatinine Ratio (test code = 3097-3) 7 6-25 [facility] CypressEstimat Glomerular Filtration Rate 2017-04-01 00:17:00* Test Item Value Reference Range Interpretation Comments Estimat Glomerular Filtration Rate (test code = 96503-8) 60- >60 Ranges were taken from the National Kidney Disease Education Program and the [facility] literature.Reference ranges:60 or greater: Qyweln99-49 ( for 3 consecutive months): Chronic kidney disease 15 or less: Kidney failureH[facility] CypressGlucose Wnifw8650-58-55 00:17:00* Test Item Value Reference Range Interpretation Comments Glucose Level (test code = DKV1075) 294 74-118 H [facility] CypressCalcium Hgdgf3473-92-36 00:17:00* Test Item Value Reference Range Interpretation Comments Calcium Level (test code = 76656-3) 8.8 8.4-10.2 [facility] Mvsmz1080-48-15 00:17:00* Test Item Value Reference Range Interpretation Comments Sodium Level (test code = 2951-2) 134 136-145 L [facility] CypressPotassium Pyaom7045-03-92 00:17:00* Test Item Value Reference Range Interpretation Comments Potassium Level (test code = 2823-3) 3.4 3.5-5.1 L [facility] CypressChloride Xwuqr6424-66-85 00:17:00* Test Item Value Reference Range Interpretation Comments Chloride Level (test code = 2075-0) 102 98-107 [facility] CypressCarbon Dioxide Ngref8693-26-15 00:17:00* Test Item Value Reference Range Interpretation Comments Carbon Dioxide Level (test code = 2028-9) 23 22-29 [facility] CypressAnion Twj7668-07-54 00:17:00* Test Item Value Reference Range Interpretation Comments Anion Gap (test code = 56608-6) 12.4 8-16 [facility] CypressBlood Urea Tyavtitn1040-43-65 00:17:00* Test Item Value Reference Range Interpretation Comments Blood Urea Nitrogen (test code = 3094-0) 5 7-26 L [facility] CypressCreatinine2017-06-20 00:17:00* Test Item Value Reference Range Interpretation Comments Creatinine (test code = 2160-0) 0.71 0.57-1.11 [facility]ressBUN/Creatinine Yfuqf7534-53-75 00:17:00* Test Item Value Reference Range Interpretation Comments BUN/Creatinine Ratio (test code = 3097-3) 7 6-25 [facility] CypressEstimat Glomerular Filtration Rate 2017-04-01 00:17:00* Test Item Value Reference Range Interpretation Comments Estimat Glomerular Filtration Rate (test code = 03776-3) 60- >60 Ranges were taken from the National Kidney Disease Education Program and the [facility] literature.Reference ranges:60 or greater: Rpgaqa57-58 ( for 3 consecutive months): Chronic kidney disease 15 or less: Kidney failureH[facility] CypressGlucose Zmyzq2201-31-94 00:17:00* Test Item Value Reference Range Interpretation Comments Glucose Level (test code = LMR8366) 294 74-118 H [facility] CypressCalcium Jadic5713-34-30 00:17:00* Test Item Value Reference Range Interpretation Comments Calcium Level (test code = 88419-8) 8.8 8.4-10.2 [facility] Oxtzn9558-58-85 00:17:00* Test Item Value Reference Range Interpretation Comments Sodium Level (test code = 2951-2) 134 136-145 L [facility]ressPotassium Pjjtg0637-58-16 00:17:00* Test Item Value Reference Range Interpretation Comments Potassium Level (test code = 2823-3) 3.4 3.5-5.1 L [facility] CypressChloride Ygegt9729-71-25 00:17:00* Test Item Value Reference Range Interpretation Comments Chloride Level (test code = 2075-0) 102 98-107 [facility] CypressCarbon Dioxide Iiowx9801-63-29 00:17:00* Test Item Value Reference Range Interpretation Comments Carbon Dioxide Level (test code = 2028-9) 23 22-29 [facility] CypressAnion Djl8792-87-67 00:17:00* Test Item Value Reference Range Interpretation Comments Anion Gap (test code = 08930-7) 12.4 8-16 [facility] CypressBlood Urea Kqnotvmt2218-29-32 00:17:00* Test Item Value Reference Range Interpretation Comments Blood Urea Nitrogen (test code = 3094-0) 5 7-26 L [facility] CypressCreatinine2017-06-20 00:17:00* Test Item Value Reference Range Interpretation Comments Creatinine (test code = 2160-0) 0.71 0.57-1.11 [facility]ressBUN/Creatinine Kqgoe4224-34-53 00:17:00* Test Item Value Reference Range Interpretation Comments BUN/Creatinine Ratio (test code = 3097-3) 7 6-25 [facility] CypressEstimat Glomerular Filtration Rate 2017-04-01 00:17:00* Test Item Value Reference Range Interpretation Comments Estimat Glomerular Filtration Rate (test code = 78465-1) 60- >60 Ranges were taken from the National Kidney Disease Education Program and the [facility] literature.Reference ranges:60 or greater: Pkfzxz11-61 ( for 3 consecutive months): Chronic kidney disease 15 or less: Kidney failureHCA [facility] CypressGlucose Nwrdi3483-05-55 00:17:00* Test Item Value Reference Range Interpretation Comments Glucose Level (test code = IUF2902) 294 74-118 H [facility] CypressCalcium Hitpb6260-79-31 00:17:00* Test Item Value Reference Range Interpretation Comments Calcium Level (test code = 83781-2) 8.8 8.4-10.2 [facility] Xwsmq9743-89-08 00:17:00* Test Item Value Reference Range Interpretation Comments Sodium Level (test code = 2951-2) 134 136-145 L [facility] CypressPotassium Nclgk4331-78-26 00:17:00* Test Item Value Reference Range Interpretation Comments Potassium Level (test code = 2823-3) 3.4 3.5-5.1 L [facility] CypressChloride Ennmx8046-77-88 00:17:00* Test Item Value Reference Range Interpretation Comments Chloride Level (test code = 2075-0) 102 98-107 [facility] CypressCarbon Dioxide Lwgfa2600-56-72 00:17:00* Test Item Value Reference Range Interpretation Comments Carbon Dioxide Level (test code = 2028-9) 23 22-29 [facility] CypressAnion Pad0059-58-08 00:17:00* Test Item Value Reference Range Interpretation Comments Anion Gap (test code = 46272-8) 12.4 8-16 [facility] CypressBlood Urea Meszjkrd0010-13-64 00:17:00* Test Item Value Reference Range Interpretation Comments Blood Urea Nitrogen (test code = 3094-0) 5 7-26 L [facility] CypressCreatinine2017-06-20 00:17:00* Test Item Value Reference Range Interpretation Comments Creatinine (test code = 2160-0) 0.71 0.57-1.11 [facility]ressBUN/Creatinine Ehngc9684-43-06 00:17:00* Test Item Value Reference Range Interpretation Comments BUN/Creatinine Ratio (test code = 3097-3) 7 6-25 [facility] CypressEstimat Glomerular Filtration Rate 2017-04-01 00:17:00* Test Item Value Reference Range Interpretation Comments Estimat Glomerular Filtration Rate (test code = 66152-4) 60- >60 Ranges were taken from the National Kidney Disease Education Program and the [facility] literature.Reference ranges:60 or greater: Ncoyze52-88 ( for 3 consecutive months): Chronic kidney disease 15 or less: Kidney failureHCA [facility] CypressGlucose Dkwux6473-67-82 00:17:00* Test Item Value Reference Range Interpretation Comments Glucose Level (test code = IZR8513) 294 74-118 H [facility] CypressCalcium Eepsr2465-65-22 00:17:00* Test Item Value Reference Range Interpretation Comments Calcium Level (test code = 27050-2) 8.8 8.4-10.2 [facility] DIY4344-58-97 19:10:00* Test Item Value Reference Range Interpretation Comments Urine WBC (test code = 5821-4) 6-10 0-5 H [facility] LXY2888-02-06 19:10:00* Test Item Value Reference Range Interpretation Comments Urine RBC (test code = 38555-5) NONE 0-5 [facility] Ymoqtcel7125-27-62 19:10:00* Test Item Value Reference Range Interpretation Comments Urine Bacteria (test code = 27268-8) FEW NONE [facility]ressUrine Epithelial Rofeo2712-89-03 19:10:00 * Test Item Value Reference Range Interpretation Comments Urine Epithelial Cells (test code = 74263-4) MODERATE NONE [facility] Kfquq8296-18-08 19:10:00* Test Item Value Reference Range Interpretation Comments Urine Yeast (test code = 72740-9) RARE NONE H [facility] AWZ9780-25-57 19:10:00* Test Item Value Reference Range Interpretation Comments Urine WBC (test code = 5821-4) 6-10 0-5 H [facility] XGT0334-76-86 19:10:00* Test Item Value Reference Range Interpretation Comments Urine RBC (test code = 42417-1) NONE 0-5 [facility] Lzmtiekf4293-86-09 19:10:00* Test Item Value Reference Range Interpretation Comments Urine Bacteria (test code = 09971-4) FEW NONE [facility] Epithelial Iotme8800-63-77 19:10:00 * Test Item Value Reference Range Interpretation Comments Urine Epithelial Cells (test code = 22674-1) MODERATE NONE [facility] Hsxva4435-37-29 19:10:00* Test Item Value Reference Range Interpretation Comments Urine Yeast (test code = 53618-9) RARE NONE H [facility] ALV3363-62-72 19:10:00* Test Item Value Reference Range Interpretation Comments Urine WBC (test code = 5821-4) 6-10 0-5 H [facility] CypressUrine JQQ0834-83-47 19:10:00* Test Item Value Reference Range Interpretation Comments Urine RBC (test code = 61391-2) NONE 0-5 [facility]ressUrine Kljqaiba8180-81-13 19:10:00* Test Item Value Reference Range Interpretation Comments Urine Bacteria (test code = 15002-6) FEW NONE [facility]ressUrine Epithelial Vueux3958-31-71 19:10:00 * Test Item Value Reference Range Interpretation Comments Urine Epithelial Cells (test code = 12634-9) MODERATE NONE [facility] CypressUrine Jsilr2435-22-07 19:10:00* Test Item Value Reference Range Interpretation Comments Urine Yeast (test code = 78658-8) RARE NONE H [facility] CypressUrine XYM9009-10-65 19:10:00* Test Item Value Reference Range Interpretation Comments Urine WBC (test code = 5821-4) 6-10 0-5 H [facility] CypressUrine PJD9354-18-89 19:10:00* Test Item Value Reference Range Interpretation Comments Urine RBC (test code = 17754-7) NONE 0-5 [facility]ressU[facility] Ndxcqwiy5924-92-52 19:10:00* Test Item Value Reference Range Interpretation Comments Urine Bacteria (test code = 17124-7) FEW NONE [facility]ressUrine Epithelial Pcixy6472-49-33 19:10:00 * Test Item Value Reference Range Interpretation Comments Urine Epithelial Cells (test code = 21058-6) MODERATE NONE [facility]ressU[facility] Rcjzd3880-81-61 19:10:00* Test Item Value Reference Range Interpretation Comments Urine Yeast (test code = 96347-4) RARE NONE H [facility] CypressUrine Wollo9962-10-05 19:07:00* Test Item Value Reference Range Interpretation Comments Urine Color (test code = 5778-6) YELLOW YELLOW [facility]ressUrine Qzvjrxr7328-14-87 19:07:00* Test Item Value Reference Range Interpretation Comments Urine Clarity (test code = 95235-9) CLEAR CLEAR [facility]ressUrine Specific Cwljabw5885-55-36 19:07:00 * Test Item Value Reference Range Interpretation Comments Urine Specific [place] (test code = 5811-5) 1.005 1.010-1.02 5 L [facility]ressUrine gL0148-02-24 19:07:00* Test Item Value Reference Range Interpretation Comments Urine pH (test code = 48993-6) 5 5-7 [facility]ressU[facility] Leukocyte Wtsmjocp3746-03-97 19:07:00* Test Item Value Reference Range Interpretation Comments Urine Leukocyte Esterase (test code = 5799-2) TRACE NEGATIVE H [facility]ressUrine Bxroeqy0613-70-27 19:07:00* Test Item Value Reference Range Interpretation Comments Urine Nitrite (test code = 69479-7) NEGATIVE NEGATIVE [facility]ressU[facility] Exkfsgn5593-15-04 19:07:00* Test Item Value Reference Range Interpretation Comments Urine Protein (test code = 5804-0) NEGATIVE NEGATIVE [facility] Glucose (UA)2017-03-31 19:07:00* Test Item Value Reference Range Interpretation Comments Urine Glucose (UA) (test code = 2349-9) 3+ NEGATIVE H [facility]ressU[facility] Zbcwxib0796-93-87 19:07:00* Test Item Value Reference Range Interpretation Comments Urine Ketones (test code = 24729-2) NEGATIVE NEGATIVE [facility]ressU[facility] Bdsijyqgjrkr1727-78-25 19:07:00* Test Item Value Reference Range Interpretation Comments Urine Urobilinogen (test code = 87191-3) 0.2 0.2-1 [facility]ressUrine Ihyyhfxkb9954-18-82 19:07:00* Test Item Value Reference Range Interpretation Comments Urine Bilirubin (test code = 1978-6) NEGATIVE NEGATIVE [facility]ressU[facility] Nnndq8170-06-15 19:07:00* Test Item Value Reference Range Interpretation Comments Urine Blood (test code = 05167-8) NEGATIVE NEGATIVE [facility]ressU[facility] Upywy4195-85-33 19:07:00* Test Item Value Reference Range Interpretation Comments Urine Color (test code = 5778-6) YELLOW YELLOW [facility]ressU[facility] Pwaddfk1280-24-88 19:07:00* Test Item Value Reference Range Interpretation Comments Urine Clarity (test code = 29931-3) CLEAR CLEAR [facility]ressU[facility] Specific Gkjzehz4481-74-05 19:07:00 * Test Item Value Reference Range Interpretation Comments Urine Specific [place] (test code = 5811-5) 1.005 1.010-1.02 5 L [facility]ressU[facility] bC2291-13-11 19:07:00* Test Item Value Reference Range Interpretation Comments Urine pH (test code = 12631-3) 5 5-7 [facility]ressU[facility] Leukocyte Jltjuiyc1436-36-38 19:07:00* Test Item Value Reference Range Interpretation Comments Urine Leukocyte Esterase (test code = 5799-2) TRACE NEGATIVE H [facility]ressU[facility] Otivnid8011-34-13 19:07:00* Test Item Value Reference Range Interpretation Comments Urine Nitrite (test code = 24542-2) NEGATIVE NEGATIVE [facility]ressU[facility] Uplskvo6865-95-99 19:07:00* Test Item Value Reference Range Interpretation Comments Urine Protein (test code = 5804-0) NEGATIVE NEGATIVE [facility] Glucose (UA)2017-03-31 19:07:00* Test Item Value Reference Range Interpretation Comments Urine Glucose (UA) (test code = 2349-9) 3+ NEGATIVE H [facility]ressU[facility] Iudmxbh2349-12-71 19:07:00* Test Item Value Reference Range Interpretation Comments Urine Ketones (test code = 64054-6) NEGATIVE NEGATIVE [facility] Lpjwpknauqew2320-22-14 19:07:00* Test Item Value Reference Range Interpretation Comments Urine Urobilinogen (test code = 99541-9) 0.2 0.2-1 [facility] Cskdzfbvc4466-98-45 19:07:00* Test Item Value Reference Range Interpretation Comments Urine Bilirubin (test code = 1978-6) NEGATIVE NEGATIVE [facility] Ypzsl5590-05-43 19:07:00* Test Item Value Reference Range Interpretation Comments Urine Blood (test code = 97503-2) NEGATIVE NEGATIVE [facility]ressU[facility] Smunc6775-12-30 19:07:00* Test Item Value Reference Range Interpretation Comments Urine Color (test code = 5778-6) YELLOW YELLOW [facility]ressU[facility] Tcupglq5638-50-85 19:07:00* Test Item Value Reference Range Interpretation Comments Urine Clarity (test code = 34456-9) CLEAR CLEAR [facility]ressU[facility] Specific Xtdnnlj8321-41-75 19:07:00 * Test Item Value Reference Range Interpretation Comments Urine Specific [place] (test code = 5811-5) 1.005 1.010-1.02 5 L [facility]ressU[facility] mY4866-72-68 19:07:00* Test Item Value Reference Range Interpretation Comments Urine pH (test code = 81649-4) 5 5-7 [facility] Leukocyte Ykyuowar1657-98-11 19:07:00* Test Item Value Reference Range Interpretation Comments Urine Leukocyte Esterase (test code = 5799-2) TRACE NEGATIVE H [facility]ressU[facility] Rkqmwtt9891-42-11 19:07:00* Test Item Value Reference Range Interpretation Comments Urine Nitrite (test code = 55886-3) NEGATIVE NEGATIVE [facility] Taomffq9308-54-05 19:07:00* Test Item Value Reference Range Interpretation Comments Urine Protein (test code = 5804-0) NEGATIVE NEGATIVE [facility] Glucose (UA)2017-03-31 19:07:00* Test Item Value Reference Range Interpretation Comments Urine Glucose (UA) (test code = 2349-9) 3+ NEGATIVE H [facility]ressU[facility] Xzzunud6477-14-32 19:07:00* Test Item Value Reference Range Interpretation Comments Urine Ketones (test code = 54912-8) NEGATIVE NEGATIVE [facility] Jzzytgxrgnek5820-01-08 19:07:00* Test Item Value Reference Range Interpretation Comments Urine Urobilinogen (test code = 14260-7) 0.2 0.2-1 [facility] Qxcowdhzm9022-64-14 19:07:00* Test Item Value Reference Range Interpretation Comments Urine Bilirubin (test code = 1978-6) NEGATIVE NEGATIVE [facility] Mxfff7725-34-44 19:07:00* Test Item Value Reference Range Interpretation Comments Urine Blood (test code = 56024-8) NEGATIVE NEGATIVE [facility]ressU[facility] Hvkch1409-17-32 19:07:00* Test Item Value Reference Range Interpretation Comments Urine Color (test code = 5778-6) YELLOW YELLOW [facility] Jxtsztb9425-40-98 19:07:00* Test Item Value Reference Range Interpretation Comments Urine Clarity (test code = 74558-7) CLEAR CLEAR [facility]ressU[facility] Specific Byimfvj7388-12-38 19:07:00 * Test Item Value Reference Range Interpretation Comments Urine Specific [place] (test code = 5811-5) 1.005 1.010-1.02 5 L [facility]ressU[facility] [id number] 19:07:00* Test Item Value Reference Range Interpretation Comments Urine pH (test code = 48169-7) 5 5-7 [facility] Leukocyte Mufislib2774-47-81 19:07:00* Test Item Value Reference Range Interpretation Comments Urine Leukocyte Esterase (test code = 5799-2) TRACE NEGATIVE H [facility] Mxarxem6286-20-78 19:07:00* Test Item Value Reference Range Interpretation Comments Urine Nitrite (test code = 83974-0) NEGATIVE NEGATIVE [facility]ressU[facility] Uoaabkm2653-19-34 19:07:00* Test Item Value Reference Range Interpretation Comments Urine Protein (test code = 5804-0) NEGATIVE NEGATIVE [facility]ress[facility]rine Glucose (UA)2017-03-31 19:07:00* Test Item Value Reference Range Interpretation Comments Urine Glucose (UA) (test code = 2349-9) 3+ NEGATIVE H [facility]ressUrine Jxtdmke6179-84-85 19:07:00* Test Item Value Reference Range Interpretation Comments Urine Ketones (test code = 65702-2) NEGATIVE NEGATIVE [facility]ressU[facility] Ctyjbifuldyu0511-44-23 19:07:00* Test Item Value Reference Range Interpretation Comments Urine Urobilinogen (test code = 15016-4) 0.2 0.2-1 [facility]ressU[facility] Spgwiijfo8912-03-69 19:07:00* Test Item Value Reference Range Interpretation Comments Urine Bilirubin (test code = 1978-6) NEGATIVE NEGATIVE [facility]ressU[facility] Xlxde9201-93-40 19:07:00* Test Item Value Reference Range Interpretation Comments Urine Blood (test code = 96810-8) NEGATIVE NEGATIVE [facility]ressTotal Sheydnrcn8289-82-10 18:33:00* Test Item Value Reference Range Interpretation Comments Total Bilirubin (test code = 1975-2) 0.2 0.2-1.2 [facility] CypressAspartate Amino Transf (AST/SGOT) 2017-03-31 18:33:00* Test Item Value Reference Range Interpretation Comments Aspartate Amino Transf (AST/SGOT) (test code = Aspartate Amino Transf (AST/SGOT)) 11 5-34 [facility] CypressAlanine Aminotransferase (ALT/SGPT) 2017-03-31 18:33:00* Test Item Value Reference Range Interpretation Comments Alanine Aminotransferase (ALT/SGPT) (test code = 1742-6) 14 0-55 [facility]ressTotal Rzrhjyq9006-75-86 18:33:00* Test Item Value Reference Range Interpretation Comments Total Protein (test code = 2885-2) 7.7 6.5-8.1 [facility] CypressAlbumin2017-06-19 18:33:00* Test Item Value Reference Range Interpretation Comments Albumin (test code = 1751-7) 3.9 3.5-5.0 [facility]ressGlobulin2017-06-19 18:33:00* Test Item Value Reference Range Interpretation Comments Globulin (test code = 02122-9) 3.8 2.3-3.5 H [facility]ressAlbumin/Globulin Dlnyd9926-44-33 18:33:00 * Test Item Value Reference Range Interpretation Comments Albumin/Globulin Ratio (test code = 1759-0) 1.0 0.8-2.0 [facility] CypressAlkaline Vmupwgvwbvh9260-15-23 18:33:00* Test Item Value Reference Range Interpretation Comments Alkaline Phosphatase (test code = 6768-6) 156 40-150 H [facility]To[facility] Bukzhrizp4197-37-11 18:33:00* Test Item Value Reference Range Interpretation Comments Total Bilirubin (test code = 1975-2) 0.2 0.2-1.2 [facility] CypressAspartate Amino Transf (AST/SGOT) 2017-03-31 18:33:00* Test Item Value Reference Range Interpretation Comments Aspartate Amino Transf (AST/SGOT) (test code = Aspartate Amino Transf (AST/SGOT)) 11 5-34 [facility] CypressAlanine Aminotransferase (ALT/SGPT) 2017-03-31 18:33:00* Test Item Value Reference Range Interpretation Comments Alanine Aminotransferase (ALT/SGPT) (test code = 1742-6) 14 0-55 [facility]To[facility] Kkeokjw9338-76-63 18:33:00* Test Item Value Reference Range Interpretation Comments Total Protein (test code = 2885-2) 7.7 6.5-8.1 [facility] CypressAlbumin2017-06-19 18:33:00* Test Item Value Reference Range Interpretation Comments Albumin (test code = 1751-7) 3.9 3.5-5.0 [facility] CypressGlobulin2017-06-19 18:33:00* Test Item Value Reference Range Interpretation Comments Globulin (test code = 69987-0) 3.8 2.3-3.5 H [facility] CypressAlbumin/Globulin Mbhhv6634-95-41 18:33:00 * Test Item Value Reference Range Interpretation Comments Albumin/Globulin Ratio (test code = 1759-0) 1.0 0.8-2.0 [facility] CypressAlkaline Yawihcjaekz8453-41-35 18:33:00* Test Item Value Reference Range Interpretation Comments Alkaline Phosphatase (test code = 6768-6) 156 40-150 H [facility] CypressTotal Hzuxrsfed7828-14-71 18:33:00* Test Item Value Reference Range Interpretation Comments Total Bilirubin (test code = 1975-2) 0.2 0.2-1.2 [facility] CypressAspartate Amino Transf (AST/SGOT) 2017-03-31 18:33:00* Test Item Value Reference Range Interpretation Comments Aspartate Amino Transf (AST/SGOT) (test code = Aspartate Amino Transf (AST/SGOT)) 11 5-34 [facility] CypressAlanine Aminotransferase (ALT/SGPT) 2017-03-31 18:33:00* Test Item Value Reference Range Interpretation Comments Alanine Aminotransferase (ALT/SGPT) (test code = 1742-6) 14 0-55 [facility] Nnvxgbb3954-53-47 18:33:00* Test Item Value Reference Range Interpretation Comments Total Protein (test code = 2885-2) 7.7 6.5-8.1 [facility] CypressAlbumin2017-06-19 18:33:00* Test Item Value Reference Range Interpretation Comments Albumin (test code = 1751-7) 3.9 3.5-5.0 [facility]ressGlobulin2017-06-19 18:33:00* Test Item Value Reference Range Interpretation Comments Globulin (test code = 54631-0) 3.8 2.3-3.5 H [facility] CypressAlbumin/Globulin Kitkx8093-29-79 18:33:00 * Test Item Value Reference Range Interpretation Comments Albumin/Globulin Ratio (test code = 1759-0) 1.0 0.8-2.0 [facility] CypressAlkaline Lonypechltr1897-57-47 18:33:00* Test Item Value Reference Range Interpretation Comments Alkaline Phosphatase (test code = 6768-6) 156 40-150 H [facility] Hrvhuodoe0746-42-50 18:33:00* Test Item Value Reference Range Interpretation Comments Total Bilirubin (test code = 1975-2) 0.2 0.2-1.2 [facility] CypressAspartate Amino Transf (AST/SGOT) 2017-03-31 18:33:00* Test Item Value Reference Range Interpretation Comments Aspartate Amino Transf (AST/SGOT) (test code = Aspartate Amino Transf (AST/SGOT)) 11 5-34 [facility] CypressAlanine Aminotransferase (ALT/SGPT) 2017-03-31 18:33:00* Test Item Value Reference Range Interpretation Comments Alanine Aminotransferase (ALT/SGPT) (test code = 1742-6) 14 0-55 [facility]ressTotal Mnnlpki8123-05-77 18:33:00* Test Item Value Reference Range Interpretation Comments Total Protein (test code = 2885-2) 7.7 6.5-8.1 [facility] CypressAlbumin2017-06-19 18:33:00* Test Item Value Reference Range Interpretation Comments Albumin (test code = 1751-7) 3.9 3.5-5.0 [facility] CypressGlobulin2017-06-19 18:33:00* Test Item Value Reference Range Interpretation Comments Globulin (test code = 07709-5) 3.8 2.3-3.5 H [facility] CypressAlbumin/Globulin Fnvgu1624-01-03 18:33:00 * Test Item Value Reference Range Interpretation Comments Albumin/Globulin Ratio (test code = 1759-0) 1.0 0.8-2.0 [facility] CypressAlkaline Bgsxccyxyuf6838-16-43 18:33:00* Test Item Value Reference Range Interpretation Comments Alkaline Phosphatase (test code = 6768-6) 156 40-150 H [facility] CypressWhite Blood Npshr3780-85-40 18:13:00* Test Item Value Reference Range Interpretation Comments White Blood Count (test code = 6690-2) 4.77 4.8-10.8 L [facility] CypressRed Blood Pxwil8467-68-19 18:13:00* Test Item Value Reference Range Interpretation Comments Red Blood Count (test code = 789-8) 5.09 3.6-5.1 [facility] CypressHemoglobin2017-06-19 18:13:00* Test Item Value Reference Range Interpretation Comments Hemoglobin (test code = 67787-4) 15.0 12.0-16.0 [facility] CypressHematocrit2017-06-19 18:13:00* Test Item Value Reference Range Interpretation Comments Hematocrit (test code = 4544-3) 43.5 34.2-44.1 [facility] CypressMean Corpuscular Vpxuoe2956-99-90 18:13:00* Test Item Value Reference Range Interpretation Comments Mean Corpuscular Volume (test code = 787-2) 85.5 81-99 [facility] CypressMean Corpuscular Qdbqqdcyte1345-65-59 18:13:00* Test Item Value Reference Range Interpretation Comments Mean Corpuscular Hemoglobin (test code = 785-6) 29.5 28-32 [facility] Con[facility] 2017-03-31 18:13:00* Test Item Value Reference Range Interpretation Comments Mean Corpuscular Hemoglobin Concent (test code = 786-4) 34.5 31-35 [facility] CypressRed Cell Distribution Dwyhg4885-80-31 18:13:00* Test Item Value Reference Range Interpretation Comments Red Cell Distribution Width (test code = 31997-9) 11.9 11.7 -14.4 [facility] CypressPlatelet Prtwc4772-12-46 18:13:00* Test Item Value Reference Range Interpretation Comments Platelet Count (test code = 777-3) 221 140-360 [facility] CypressNeutrophils (%) (Auto)2017-03-31 18:13:00 * Test Item Value Reference Range Interpretation Comments Neutrophils (%) (Auto) (test code = 16240-9) 41.4 38.7-80.0 [facility] CypressLymphocytes (%) (Auto)2017-03-31 18:13:00 * Test Item Value Reference Range Interpretation Comments Lymphocytes (%) (Auto) (test code = 736-9) 47.2 18.0-39.1 H [facility] CypressMonocytes (%) (Auto)2017-03-31 18:13:00* Test Item Value Reference Range Interpretation Comments Monocytes (%) (Auto) (test code = 5905-5) 9.6 4.4-11.3 [facility]ressEosinophils (%) (Auto)2017-03-31 18:13:00 * Test Item Value Reference Range Interpretation Comments Eosinophils (%) (Auto) (test code = 713-8) 1.0 0.0-6.0 [facility] CypressBasophils (%) (Auto)2017-03-31 18:13:00* Test Item Value Reference Range Interpretation Comments Basophils (%) (Auto) (test code = 706-2) 0.6 0.0-1.0 [facility] CypressIM GRANULOCYTES %2017-03-31 18:13:00* Test Item Value Reference Range Interpretation Comments IM GRANULOCYTES % (test code = IM GRANULOCYTES %) 0.2 0.0- 1.0 [facility]ressNeutrophils # (Auto)2017-03-31 18:13:00* Test Item Value Reference Range Interpretation Comments Neutrophils # (Auto) (test code = 751-8) 2.0 2.1-6.9 L [facility] CypressLymphocytes # (Auto)2017-03-31 18:13:00* Test Item Value Reference Range Interpretation Comments Lymphocytes # (Auto) (test code = 78739-5) 2.3 1.0-3.2 [facility] CypressMonocytes # (Auto)2017-03-31 18:13:00* Test Item Value Reference Range Interpretation Comments Monocytes # (Auto) (test code = 742-7) 0.5 0.2-0.8 [facility]ressEosinophils # (Auto)2017-03-31 18:13:00* Test Item Value Reference Range Interpretation Comments Eosinophils # (Auto) (test code = 711-2) 0.1 0.0-0.4 [facility] CypressBasophils # (Auto)2017-03-31 18:13:00* Test Item Value Reference Range Interpretation Comments Basophils # (Auto) (test code = 704-7) 0.0 0.0-0.1 [facility] CypressAbsolute Immature Granulocyte (auto 2017-03-31 18:13:00* Test Item Value Reference Range Interpretation Comments Absolute Immature Granulocyte (auto (chiquita t code = Absolute Immature Granulocyte (auto) 0.01 0-0.1 [facility] CypressWhite Blood Bvtel3515-74-33 18:13:00* Test Item Value Reference Range Interpretation Comments White Blood Count (test code = 6690-2) 4.77 4.8-10.8 L [facility] CypressRed Blood Pmmml4001-64-57 18:13:00* Test Item Value Reference Range Interpretation Comments Red Blood Count (test code = 789-8) 5.09 3.6-5.1 [facility] CypressHemoglobin2017-06-19 18:13:00* Test Item Value Reference Range Interpretation Comments Hemoglobin (test code = 08258-8) 15.0 12.0-16.0 [facility] CypressHematocrit2017-06-19 18:13:00* Test Item Value Reference Range Interpretation Comments Hematocrit (test code = 4544-3) 43.5 34.2-44.1 [facility] CypressMean Corpuscular Jtdqja9757-25-85 18:13:00* Test Item Value Reference Range Interpretation Comments Mean Corpuscular Volume (test code = 787-2) 85.5 81-99 [facility] CypressMean Corpuscular Areiajxgjs2524-11-24 18:13:00* Test Item Value Reference Range Interpretation Comments Mean Corpuscular Hemoglobin (test code = 785-6) 29.5 28-32 [facility] CypressMean Corpuscular Hemoglobin Concent 2017-03-31 18:13:00* Test Item Value Reference Range Interpretation Comments Mean Corpuscular Hemoglobin Concent (test code = 786-4) 34.5 31-35 [facility] CypressRed Cell Distribution Gmuyr0628-88-70 18:13:00* Test Item Value Reference Range Interpretation Comments Red Cell Distribution Width (test code = 61731-7) 11.9 11.7 -14.4 [facility] CypressPlatelet Zdhkh2017-56-20 18:13:00* Test Item Value Reference Range Interpretation Comments Platelet Count (test code = 777-3) 221 140-360 [facility] CypressNeutrophils (%) (Auto)2017-03-31 18:13:00 * Test Item Value Reference Range Interpretation Comments Neutrophils (%) (Auto) (test code = 54932-3) 41.4 38.7-80.0 [facility] CypressLymphocytes (%) (Auto)2017-03-31 18:13:00 * Test Item Value Reference Range Interpretation Comments Lymphocytes (%) (Auto) (test code = 736-9) 47.2 18.0-39.1 H [facility] CypressMonocytes (%) (Auto)2017-03-31 18:13:00* Test Item Value Reference Range Interpretation Comments Monocytes (%) (Auto) (test code = 5905-5) 9.6 4.4-11.3 [facility]ressEosinophils (%) (Auto)2017-03-31 18:13:00 * Test Item Value Reference Range Interpretation Comments Eosinophils (%) (Auto) (test code = 713-8) 1.0 0.0-6.0 [facility] CypressBasophils (%) (Auto)2017-03-31 18:13:00* Test Item Value Reference Range Interpretation Comments Basophils (%) (Auto) (test code = 706-2) 0.6 0.0-1.0 [facility] CypressIM GRANULOCYTES %2017-03-31 18:13:00* Test Item Value Reference Range Interpretation Comments IM GRANULOCYTES % (test code = IM GRANULOCYTES %) 0.2 0.0- 1.0 [facility] CypressNeutrophils # (Auto)2017-03-31 18:13:00* Test Item Value Reference Range Interpretation Comments Neutrophils # (Auto) (test code = 751-8) 2.0 2.1-6.9 L [facility] CypressLymphocytes # (Auto)2017-03-31 18:13:00* Test Item Value Reference Range Interpretation Comments Lymphocytes # (Auto) (test code = 01058-9) 2.3 1.0-3.2 [facility] CypressMonocytes # (Auto)2017-03-31 18:13:00* Test Item Value Reference Range Interpretation Comments Monocytes # (Auto) (test code = 742-7) 0.5 0.2-0.8 [facility] CypressEosinophils # (Auto)2017-03-31 18:13:00* Test Item Value Reference Range Interpretation Comments Eosinophils # (Auto) (test code = 711-2) 0.1 0.0-0.4 [facility] CypressBasophils # (Auto)2017-03-31 18:13:00* Test Item Value Reference Range Interpretation Comments Basophils # (Auto) (test code = 704-7) 0.0 0.0-0.1 [facility] CypressAbsolute Immature Granulocyte (auto 2017-03-31 18:13:00* Test Item Value Reference Range Interpretation Comments Absolute Immature Granulocyte (auto (chiquita t code = Absolute Immature Granulocyte (auto) 0.01 0-0.1 [facility] CypressWhite Blood Mhmzv3245-73-98 18:13:00* Test Item Value Reference Range Interpretation Comments White Blood Count (test code = 6690-2) 4.77 4.8-10.8 L [facility] CypressRed Blood Bqogx1861-21-43 18:13:00* Test Item Value Reference Range Interpretation Comments Red Blood Count (test code = 789-8) 5.09 3.6-5.1 [facility] CypressHemoglobin2017-06-19 18:13:00* Test Item Value Reference Range Interpretation Comments Hemoglobin (test code = 91237-7) 15.0 12.0-16.0 [facility] CypressHematocrit2017-06-19 18:13:00* Test Item Value Reference Range Interpretation Comments Hematocrit (test code = 4544-3) 43.5 34.2-44.1 [facility] CypressMean Corpuscular Jwttsq6274-32-41 18:13:00* Test Item Value Reference Range Interpretation Comments Mean Corpuscular Volume (test code = 787-2) 85.5 81-99 [facility] CypressMean Corpuscular Jyfqyoxrmt5844-65-16 18:13:00* Test Item Value Reference Range Interpretation Comments Mean Corpuscular Hemoglobin (test code = 785-6) 29.5 28-32 [facility] CypressMean Corpuscular Hemoglobin Concent 2017-03-31 18:13:00* Test Item Value Reference Range Interpretation Comments Mean Corpuscular Hemoglobin Concent (test code = 786-4) 34.5 31-35 [facility] CypressRed Cell Distribution Rdzzi8173-62-18 18:13:00* Test Item Value Reference Range Interpretation Comments Red Cell Distribution Width (test code = 51432-9) 11.9 11.7 -14.4 [facility] CypressPlatelet Voljc8290-51-36 18:13:00* Test Item Value Reference Range Interpretation Comments Platelet Count (test code = 777-3) 221 140-360 [facility] CypressNeutrophils (%) (Auto)2017-03-31 18:13:00 * Test Item Value Reference Range Interpretation Comments Neutrophils (%) (Auto) (test code = 24926-6) 41.4 38.7-80.0 [facility] CypressLymphocytes (%) (Auto)2017-03-31 18:13:00 * Test Item Value Reference Range Interpretation Comments Lymphocytes (%) (Auto) (test code = 736-9) 47.2 18.0-39.1 H [facility] CypressMonocytes (%) (Auto)2017-03-31 18:13:00* Test Item Value Reference Range Interpretation Comments Monocytes (%) (Auto) (test code = 5905-5) 9.6 4.4-11.3 [facility]ressEosinophils (%) (Auto)2017-03-31 18:13:00 * Test Item Value Reference Range Interpretation Comments Eosinophils (%) (Auto) (test code = 713-8) 1.0 0.0-6.0 [facility]ressBasophils (%) (Auto)2017-03-31 18:13:00* Test Item Value Reference Range Interpretation Comments Basophils (%) (Auto) (test code = 706-2) 0.6 0.0-1.0 [facility] CypressIM GRANULOCYTES %2017-03-31 18:13:00* Test Item Value Reference Range Interpretation Comments IM GRANULOCYTES % (test code = IM GRANULOCYTES %) 0.2 0.0- 1.0 [facility] CypressNeutrophils # (Auto)2017-03-31 18:13:00* Test Item Value Reference Range Interpretation Comments Neutrophils # (Auto) (test code = 751-8) 2.0 2.1-6.9 L [facility] CypressLymphocytes # (Auto)2017-03-31 18:13:00* Test Item Value Reference Range Interpretation Comments Lymphocytes # (Auto) (test code = 16863-6) 2.3 1.0-3.2 [facility] CypressMonocytes # (Auto)2017-03-31 18:13:00* Test Item Value Reference Range Interpretation Comments Monocytes # (Auto) (test code = 742-7) 0.5 0.2-0.8 [facility]ressEosinophils # (Auto)2017-03-31 18:13:00* Test Item Value Reference Range Interpretation Comments Eosinophils # (Auto) (test code = 711-2) 0.1 0.0-0.4 [facility] CypressBasophils # (Auto)2017-03-31 18:13:00* Test Item Value Reference Range Interpretation Comments Basophils # (Auto) (test code = 704-7) 0.0 0.0-0.1 [facility] CypressAbsolute Immature Granulocyte (auto 2017-03-31 18:13:00* Test Item Value Reference Range Interpretation Comments Absolute Immature Granulocyte (auto (chiquita t code = Absolute Immature Granulocyte (auto) 0.01 0-0.1 [facility] CypressWhite Blood Vwulg8103-66-44 18:13:00* Test Item Value Reference Range Interpretation Comments White Blood Count (test code = 6690-2) 4.77 4.8-10.8 L [facility] CypressRed Blood Ewkzw9461-50-64 18:13:00* Test Item Value Reference Range Interpretation Comments Red Blood Count (test code = 789-8) 5.09 3.6-5.1 [facility] CypressHemoglobin2017-06-19 18:13:00* Test Item Value Reference Range Interpretation Comments Hemoglobin (test code = 60749-0) 15.0 12.0-16.0 [facility] CypressHematocrit2017-06-19 18:13:00* Test Item Value Reference Range Interpretation Comments Hematocrit (test code = 4544-3) 43.5 34.2-44.1 [facility] CypressMean Corpuscular Tkbibg9128-67-08 18:13:00* Test Item Value Reference Range Interpretation Comments Mean Corpuscular Volume (test code = 787-2) 85.5 81-99 [facility] CypressMean Corpuscular Ldfrkdtykj9997-93-92 18:13:00* Test Item Value Reference Range Interpretation Comments Mean Corpuscular Hemoglobin (test code = 785-6) 29.5 28-32 [facility] CypressMean Corpuscular Hemoglobin Concent 2017-03-31 18:13:00* Test Item Value Reference Range Interpretation Comments Mean Corpuscular Hemoglobin Concent (test code = 786-4) 34.5 31-35 [facility] CypressRed Cell Distribution Levwa4798-56-04 18:13:00* Test Item Value Reference Range Interpretation Comments Red Cell Distribution Width (test code = 46088-5) 11.9 11.7 -14.4 [facility] CypressPlatelet Lvhsg2087-84-17 18:13:00* Test Item Value Reference Range Interpretation Comments Platelet Count (test code = 777-3) 221 140-360 [facility] CypressNeutrophils (%) (Auto)2017-03-31 18:13:00 * Test Item Value Reference Range Interpretation Comments Neutrophils (%) (Auto) (test code = 43092-6) 41.4 38.7-80.0 [facility] CypressLymphocytes (%) (Auto)2017-03-31 18:13:00 * Test Item Value Reference Range Interpretation Comments Lymphocytes (%) (Auto) (test code = 736-9) 47.2 18.0-39.1 H [facility] CypressMonocytes (%) (Auto)2017-03-31 18:13:00* Test Item Value Reference Range Interpretation Comments Monocytes (%) (Auto) (test code = 5905-5) 9.6 4.4-11.3 [facility]ressEosinophils (%) (Auto)2017-03-31 18:13:00 * Test Item Value Reference Range Interpretation Comments Eosinophils (%) (Auto) (test code = 713-8) 1.0 0.0-6.0 [facility] CypressBasophils (%) (Auto)2017-03-31 18:13:00* Test Item Value Reference Range Interpretation Comments Basophils (%) (Auto) (test code = 706-2) 0.6 0.0-1.0 [facility] CypressIM GRANULOCYTES %2017-03-31 18:13:00* Test Item Value Reference Range Interpretation Comments IM GRANULOCYTES % (test code = IM GRANULOCYTES %) 0.2 0.0- 1.0 [facility] CypressNeutrophils # (Auto)2017-03-31 18:13:00* Test Item Value Reference Range Interpretation Comments Neutrophils # (Auto) (test code = 751-8) 2.0 2.1-6.9 L [facility] CypressLymphocytes # (Auto)2017-03-31 18:13:00* Test Item Value Reference Range Interpretation Comments Lymphocytes # (Auto) (test code = 51224-3) 2.3 1.0-3.2 [facility] CypressMonocytes # (Auto)2017-03-31 18:13:00* Test Item Value Reference Range Interpretation Comments Monocytes # (Auto) (test code = 742-7) 0.5 0.2-0.8 [facility]ressEosinophils # (Auto)2017-03-31 18:13:00* Test Item Value Reference Range Interpretation Comments Eosinophils # (Auto) (test code = 711-2) 0.1 0.0-0.4 [facility]ressBasophils # (Auto)2017-03-31 18:13:00* Test Item Value Reference Range Interpretation Comments Basophils # (Auto) (test code = 704-7) 0.0 0.0-0.1 [facility] CypressAbsolute Immature Granulocyte (auto 2017-03-31 18:13:00* Test Item Value Reference Range Interpretation Comments Absolute Immature Granulocyte (auto (chiquita t code = Absolute Immature Granulocyte (auto) 0.01 0-0.1 [facility]ressCT [facility]BDOM[facility]PELVIS W [place] [address] Patient Name: YOLETTE URIBE MR #: [id number] : 1975 Age/Sex: 42/F Req #: [id number] Adm Physician: JUAN DUBOSE MD Ordered by: [employer] Report #: [id number] Location: [facility] Room/Bed: [place] [address] Procedure: [id number] CT/CT ABDOMEN/PELVIS W Exam Date: 03/16/18 Exam [...] on 03/17/18 0023 COPY TO: [facility] [employer] TECHNICIAN FOOT RIGHT [place] [address] Patient Name: YOLETTE URIBE MR #: [id number] : 1975 Age/Sex: 42/F Req #: [id number] Adm Physician: Ordered by: BEVERLY MARTELL NP Report #: [id number] Location: ER Room/Bed: Procedure: [id number] DX/FOOT RIGHT COMPLETE Exam Kamari e: 01/17/18 [...] DIETRICH MD on 01/17/182058 Transcribed By : JEAML on 01/17/182058 COPY TO: BEVERLY MARTELL NP ANKLE 3 + VIEWS RIGHT [place] [address] Patient Name: YOLETTE URIBE MR #: [id number] : 1975 Age/Sex: 42/F Req #: [id number] Adm Physician: Ordered by: [facility] [employer] THE[employer] TECHNICIAN Report #: [id number] Location: ER Room/Bed: Procedure: DX/ANKLE 3 + VIEWS RIGHT Exam D [...] JEMAL on 01/17/182058 COPY TO: [facility] [employer] TECHNICIAN KNEE RIGHT THREE VIEWS [place] [address] Patient Name: YOLETTE URIBE MR #: [id number] : 1975 Age/Sex: 42/F Req #: [id number] Adm Physician: Ordered by: [facility] [employer] TECHNICIAN Report #: [id number] Location: ER Room/Bed: Procedure: DX/KNEE RIGHT THREE VIEWS Exam Date: 01/17/18 [...] BEVERLY MARTELL NP FOOT RIGHT AP LAT [place] [address] Patient Name: YOLETTE URIBE MR #: [id number] : 1975 Age/Sex: 42/F Req #: [id number] Adm Physician: Ordered by: BEVERLY MARTELL NP Report #: [id number] Location: ER Room/Bed: Procedure: [id number] DX/FOOT RIGHT AP LAT Exam Kamari e: [...] MARTELL NP ANKLE 3 + VIEWS RIGHT [place] [address] Patient Name: YOLETTE URIBE MR #: [id number] : 1975 Age/Sex: 42/F Req #: [id number] Adm Physician: Ordered by: BEVERLY MARTELL NP Report #: [id number] Location: ER Room/Bed: Procedure: [id number] DX/ANKLE 3 + VIEWS RIGHT Exam D ate: 01/15/18 Exam Time: 1905 REPORT STATUS: Si gned RIGHT FOOT - 2 VIEWS RIGHT ANKLE - 3 VIEWS HISTORY: Brittany dorman, twisted ankle COMPARISON: None available. FINDINGS: Sensit [...]
[2020-07-24] MEDS ORDERED: KETOROLAC TROMETHAMINE 60 MG/2 ML VIAL ONE (07:25)
[2020-07-24] MEDS ORDERED: MORPHINE SULFATE INJ 4 MG/ML INJ 1ML ONE (07:26)
[2020-07-24] MEDS ORDERED: ULTRAM50 MG PO (07:59)
--- NOTE | 2020-07-24 08:25 | Diagnostic Imaging Report ---
Right ankle, 3 views. History: Fall, right ankle pain. Findings: There is mild diffuse soft tissue swelling. Bone mineralization is normal. There is no evidence of fracture or dislocation. There are no lytic or sclerotic lesions. There is mild joint space narrowing with osteophytosis. IMPRESSION: Mild right ankle DJD. Signed by: Bk Hoff on 07/24/2020 8:22 AM
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
== END 2020-07-24 08:20 | disposition home or self-care (01) ==
LOC: ER 06:52
DX: M25.571 Pain in right ankle and joints of right foot (principal); S93.401A Sprain of unspecified ligament of right ankle, initial encounter; X50.1XXA Overexertion from prolonged static or awkward postures, initial encounter; Y93.01 Activity, walking, marching and hiking; Y92.512 Supermarket, store or market as the place of occurrence of the external cause; Z76.5 Malingerer [conscious simulation]; E11.9 Type 2 diabetes mellitus without complications; F41.9 Anxiety disorder, unspecified; F17.210 Nicotine dependence, cigarettes, uncomplicated
CPT/HCPCS: 73610; 99284; J1885; J2270

== ENCOUNTER 2020-08-15 16:32 | Emergency (ER) | payer SELFPAY ==
[~2020-08-15] VITALS: Ht 152.4 cm; Wt 62.6 kg
[~2020-08-15 16:32] MED LIST changes: +ULTRAM50 MG PO
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
[2020-08-15] MEDS ORDERED: AZITHROMYCIN250 MG PO (17:22)
[2020-08-15] MEDS ORDERED: TYLENOL # 31 EA PO (17:22)
--- NOTE | 2020-08-15 18:51 | Diagnostic Imaging Report ---
EXAMINATION: CHEST SINGLE (PORTABLE) INDICATION: Cough for 3 weeks suspicious for pneumonia Pneumonia. COMPARISON: Multiple prior x-rays including most recent on 06/13/2020. FINDINGS: TUBES and LINES: None. LUNGS: Normal lung volumes. There are nodular opacities at bilateral lung bases. No consolidations. PLEURA: No pleural effusion or pneumothorax. HEART AND MEDIASTINUM: The cardiomediastinal silhouette is unremarkable. BONES AND SOFT TISSUES: No acute osseous lesion. Soft tissues are unremarkable. UPPER ABDOMEN: No free air under the diaphragm. IMPRESSION: Nodular opacities at the bilateral lung bases which may represent atelectasis and/or multifocal pneumonia in the proper clinical context. Recommend repeat chest x-ray in 6-8 weeks to ensure resolution. Signed by: Rodrigo Mckay MD on 08/15/2020 6:48 PM
--- OUTSIDE RECORDS SUMMARY | 2020-08-17 19:09 | XMS REPORT | Continuity of Care Document ---
Author Author Latasha Owens YOLETTE MARRERO Osmar XYDO Address Unknown Phone Unavailable Care Team Providers Care Inspector Watch Assembly Name Role Phone Submittable Information Exchange Unavailable Un available Problems Problem Status Onset Date Classification Date Reported Comments Source HAND PAIN Active 08/06/2013 [facility] Medications No Data Provided for This Section [...] is identified. IMPRESSION: No abnormality identified. 08/06/2013 [facility] Consultation Notes No Data Provided for This Section Discharge Summaries No Data Provided for This Section History and Physicals No Data Provided for This Section Vital Signs No Data Provided for This Section Encounters Location Location Details Encounter Type Encounter Number Reason For Visit Attending Provider ADM Date DC Date Status Source [facility] Emergency [id number] MANUEL GARCIA 08/06/2013 08/06/2013 Discharged [facility] Procedures No Data Provided for This Section [...]
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
--- OUTSIDE RECORDS SUMMARY | 2020-08-17 19:12 | XMS REPORT | Continuity of Care Document ---
Author Author [facility] t Organization [facility] Address [address] [place] [address] Phone Unavailable Care Team Providers Care Can Runner Name Role Phone NO, PCP PCP Unavailable Nohemy TURCIOS Attphys Unavailable DIEGO BEE Attphys Unavailable Prakash CARLOS Attphys Unavailable Maritza SHIPS OR BARGES LOADER, Lilian Attphys [phone] Maisha PIKE Attphys Unavailable Xavier Thomas Attphys Juan Manuel KEVIN, F Kelsie Attphys Unavailable Salazar Segundo Attphys Allyn Duong DO Attphys Michael COLLIER, Yasmin Attphys Xavier ISABEL Attphys Unavailable BK LEMON Attphys Unavailable Malathi Orr Attphys Salazar Barragan Attphys Unavailable Marcella EVANS, Emily Mcghee Attphys Cele COLLIER, Shanita Attphys Joshua COLLIER, Bony Boles Attphys Tracee KEVIN, Aaron Attphys Unavailable Woodrow COLLIER, Chapito Attphys JAZLYN ARZATE Attphys Unavailable JUAN DUBOSE Attphys Unavailable Farooq DEAN Attphys Unavailable MANUEL, Guillermina KEY Attphys Unavailable JAZLYN ARZATE Admphys Unavailable JUAN DUBOSE Admphys Unavailable Payers Payer Name Policy Type Policy Number Effective Date Expiration Date S jessica [facility] [id number]/15/[id number] [place] [address] xxxxxxx 2020 00:00:00 2030 2 3:59:59 [facility] Medicare A & B [id number] [facility] Medicare Complete [id number] I [facility] Miscellaneous Hmo [id number] 2018 00:00:00 [facility] [employer] [id number] [facility] Problems Condition Name Condition Details Condition Category Status Onset Date Resolution Date Last Treatment Date Treating Clinician Comments Source Chronic pain of both knees Chronic pain of both knees Disease Active 2020-02-15 00:00:00 [facility] Pain in joint, ankle and foot Pain in joint, ankle and foot Disease Active 2020-02-15 00:00:00 Overview: Bilateral f oot pain [facility] Neuropathy of both feet Neuropathy of both feet Disease Active 2020-02-15 00:00:00 [facility] Diabetic neuropathy associated with type 1 diabetes me llitus Diabetic neuropathy associated with type 1 diabetes mellitus Disease Active 2020-02-15 00:00: 00 [facility] Dehydration fever Dehydration Problem Active 2015-05-14 00:00:00 [facility] Gastroenteritis Gastroenteritis Problem Active 2015-05-14 00:00:00 [facility] Reactive airway disease Reactive airway disease Problem Active 2015-05-14 00:00:00 [facility] Uncontrolled blood glucose Uncontrolled blood glucose Problem Active 2015-05-14 00:00:00 [facility] HAND PAIN HAND PAIN Active 08/06/2013 [facility] Diagnosis Active 2013-08-06 00:00:00 2013-08-06 14:53:00 [facility] Perirectal abscess Perirectal abscess Problem Active [facility] Abscess Abscess Problem Active [facility] Cellulitis Cellulitis Problem Active [facility] Herpes zoster Shingles Problem Active [facility] Hyperglycemia Problem Active [facility] Increased lactic acid level Problem Active [facility] Sprain of foot Problem Active [facility] Tinea corporis Tinea corporis Disease Active [facility] Arthritis Arthritis Disease Active [facility] Allergies, Adverse Reactions, Alerts Allergy Name Allergy Type Status Severity Reaction(s) Onset Date Inacti ve Date Treating Clinician Comments Source metformin DA Active 2020-02-21 00:00:00 [facility] Penicillins DA Active 2020-01-09 00:00:00 [facility] Sulfa (Sulfonamide Antibiotics) DA Active 2020-01-09 00 :00:00 [facility] ibuprofen DA Active 2020-01-09 00:00:00 [facility] metformin DA Active 2020-01-09 00:00:00 [facility] Sulfa (Sulfonamide Antibiotics) Allergy to substance Active Moder ate ITCH 2019-10-10 00:00:00 [facility] promethazine HCl Allergy to substance Active Mild ITCHING 2019-08-19 00:00:00 [facility] Allergy to substance Active Severe TONGUE SWELLING 2019-08-19 00:00:00 [facility] Metformin Propensity to adverse reactions to drug Active 2019-07-27 00:00:00 [facility] Sulfa (Sulfonamide Antibiotics) Propensity to adverse reactions to drug Active 2019-07-27 00:00:00 [facility] Penicillins DA Active SV 2019-07-23 00:00:00 [facility] Sulfa (Sulfonamide Antibiotics) DA Active SV 2019-07-23 00 :00:00 [facility] ibuprofen DA Active SV 2019-07-23 00:00:00 [facility] metformin DA Active SV 2019-07-23 00:00:00 [facility] Penicillins DA Active SV 2019-06-17 00:00:00 [facility] Sulfa (Sulfonamide Antibiotics) DA Active SV 2019-06-17 00 :00:00 [facility] ibuprofen DA Active SV 2019-06-17 00:00:00 [facility] metformin DA Active SV 2019-06-17 00:00:00 [facility] Penicillins DA Active SV 2018-03-15 00:00:00 [facility] Sulfa (Sulfonamide Antibiotics) DA Active SV 2018-03-15 00 :00:00 [facility] ibuprofen DA Active SV 2018-03-15 00:00:00 [facility] metformin DA Active SV 2018-03-15 00:00:00 [facility] Social History Social Habit Start Date Stop Date Quantity Comments Source Sex Assigned At [facility] Exposure to SARS-CoV-2 (event) Not sure [facility] Alcohol intake 2020-04-27 00:00:00 2020-04-27 00:00:00 Ex-drinker (fi nding) [facility] Food Worry 2019-07-27 00:00:00 2019-07-27 00:00:00 1 [facility] History SDVT Food Scarcity 2019-07-27 00:00:00 2019-07-27 00:00:00 1 [facility] Smoking Status Start Date Stop Date Source Never smoker [facility] Medications Ordered Medication Name Filled Medication Name Start Date Stop Da te Current Medication? Ordering Clinician Indication Dosage Frequency Signature (SIG) Comments Components Source ibuprofen (MOTRIN) 800 mg tablet 2020-07-25 00:00:00 Yes Acute pain of left knee 800mg Take 1 tablet by mouth every 8 hours as needed for Pain. [facility] Tramadol Hcl (Ultram) 50 Mg TABLET Tramadol Hcl (Ultram) 50 Mg TABLET 2020-07-24 07:59:00 Yes 50 Every 6 Ho urs as needed for Mild Pain (1-3) Or Fever>100.8 [facility] DULoxetine (CYMBALTA) 30 mg delayed release capsule 06-22 00:00:00 Yes Diabetic autonomic neuropathy associated with type 2 diabetes me llitus Take 2 capsules by mouth daily for 2 weeks, then take 3 capsules daily. [facility] hydrOXYzine (ATARAX) 25 mg tablet 2020-06-22 00:00:00 Yes Insomnia, unspecified type Take 1/2 to 1 tablet by mouth daily as needed for anxiety and take 1 to 2 tablets at bedtime as needed for sleep. [facility] naproxen (NAPROSYN) 500 mg tablet 2020-05-15 00:00:00 Yes Medication refill 500mg Take 1 tablet by mouth 2 times daily (with meal s). [facility] venlafaxine (EFFEXOR XR) 150 mg extended release capsule 2020-05-15 00:00:00 2020-06-22 00:00:00 No Medication refill 300mg QD Take 2 capsules by mouth daily. [facility] DULoxetine (CYMBALTA) 30 mg delayed release capsule 2020-05-15 00:00:00 2020-06-22 00:00:00 No Diabetic autonomic n europathy associated with type 2 diabetes mellitus 30mg QD Take 1 capsule by mouth daily. [facility] hydrOXYzine (ATARAX) 25 mg tablet 2020-05-15 00:00:00 2019 00:00:00 No Insomnia, unspecified type Take 1/2 to 1 tablet by mouth daily as needed for anxiety and take 1 to 2 tablets at bedtime as needed for sleep. [facility] empagliflozin (JARDIANCE) 10 mg tablet 2020-05-08 00:00:00 Yes Inadequately controlled diabetes mellitus 10mg Take 1 tablet by mouth every morning. [facility] pen needle, diabetic 31 gauge x 3/16" needles 2020-05-08 00: 00:00 Yes Poorly controlled diabetes mellitus Inject under the s kin 5 times daily. [facility] blood glucose test strips 2020-05-08 00:00:00 Yes Poorly controlled diabetes mellitus 3 times daily to test blood sugar. [facility] ketorolac (TORADOL) injection 60 mg 2020-04-27 12:15:0 0 2020-04-27 12:30:00 No Left elbow pain 60mg [place] Cyclobenzaprine (FLEXERIL) 5 mg tablet 2020-04-12 3 00:00:00 2021-04-24 23:59:00 No Acute pain of left knee 5mg T reynold 1 tablet by mouth nightly at bedtime as needed for Muscle Spasms. [facility] ibuprofen (MOTRIN) 800 mg tablet 2020-04-24 00:00:00 2020-07 00:00:00 No Acute pain of left knee 800mg Take 1 tablet by mouth every 8 hours as needed for Pain. [facility] mirtazapine (REMERON) 15 mg tablet 2020-04-20 00:00:00 00:00:00 No Moderate episode of recurrent major depressive disorder 15mg Take 1 tablet by mouth at bedtime nightly. [facility] venlafaxine (EFFEXOR XR) 150 mg extended release capsule 2020-04-20 00:00:00 2020-05-15 00:00:00 No Depression, unspecified depression typ e 300mg QD Take 2 capsules by mouth daily. [facility] hydrOXYzine (ATARAX) 25 mg tablet 2020-04-20 00:00:2019 00:00:00 No PTSD (post-traumatic stress disorder) Take 1/2 to 1 tablet by mouth daily as needed for anxiety and take 1 to 2 tablets at bedtime as needed for sleep. [facility] Cyclobenzaprine (FLEXERIL) 5 mg tablet 7 00:00:00 2020-04-24 00:00:00 No Acute pain of left knee 5mg T reynold 1 tablet by mouth nightly at bedtime as needed for Muscle Spasms. [facility] ibuprofen (MOTRIN) 800 mg tablet 2020-03-14 00:00:00 2020-04 00:00:00 No Acute pain of left knee 800mg Take 1 tablet by mouth every 8 hours as needed for Pain. [facility] Cyclobenzaprine (FLEXERIL) 5 mg tablet 2 00:00:00 2020-04-18 00:00:00 No Acute pain of left knee 5mg T reynold 1 tablet by mouth nightly at bedtime as needed for Muscle Spasms. [facility] ibuprofen (MOTRIN) 800 mg tablet 2020-03-14 00:00:00 2020-03 00:00:00 No Acute pain of left knee 800mg Take 1 tablet by mouth every 8 hours as needed for Pain. [facility] empagliflozin (JARDIANCE) 10 mg tablet 2020-02-11 8 00:00:00 2020-05-08 00:00:00 No Inadequately controlled diabetes mellitus 10mg Take 1 tablet by mouth every morning. [facility] venlafaxine (EFFEXOR XR) 150 mg extended release capsule 2020-02-28 00:00:2020-04-20 00:00:00 No Depression, unspecified depression typ e 300mg QD Take 2 capsules by mouth daily. [facility] gabapentin (NEURONTIN) 300 mg capsule 2020-02-15 00:00 :00 2020-05-15 00:00:00 No Diabetic autonomic neuropathy associated with type 1 diabetes mellitus 300mg Take 1 capsule by mouth 4 ti mes daily 1 capsule at 8:30am and 1 capsule at 2pm and 2 capsules at 8pm. [facility] naproxen (NAPROSYN) 500 mg tablet 2020-02-15 00:00:2019 00:00:00 No Chronic pain of both knees 500mg Take 1 tablet by mouth 2 times daily (with meals). [facility] hydrOXYzine (ATARAX) 25 mg tablet 2020-02-03 00:00:00 2019 00:00:00 No PTSD (post-traumatic stress disorder) Take 1/2 to 1 tablet by mouth daily as needed for anxiety and take 1 to 2 tablets at bedtime as needed for sleep. [facility] escitalopram (LEXAPRO) 10 mg tablet 2020-02-03 00:00:0 0 2020-02-28 00:00:00 No PTSD (post-traumatic stress disorder) Take 1/2 tablet by mouth daily for 2 weeks, then take 1 tablet daily. [facility] insulin aspart U-100 (NOVOLOG FLEXPEN) 100 unit/mL (3 mL) pe n 2020-02-02 00:00:00 Yes Poorly controlled diabetes mellitus 15U Inject 15 Units under the skin 3 times daily do not skip meals. [facility] insulin detemir U-100 (LEVEMIR FLEXTOUCH) 100 unit/mL (3 mL) Pen 2020-02-02 00:00:00 Yes Poorly controlled diabetes mellitus 35U Q.5D Inject 35 Units under the skin 2 times daily. [facility] linaGLIPtin (TRADJENTA) 5 mg tablet 2020-02-02 00:00:00 Yes Poorly controlled diabetes mellitus 5mg QD Take 1 tablet by mouth daily. [facility] pen needle, diabetic 31 gauge x 3/16" needles 20 30-01-22 00:00:00 2020-05-08 00:00:00 No Poorly controlled diabetes mellitus Inject under the skin 5 times daily. [facility] gabapentin (NEURONTIN) 300 mg capsule 2019-12-11 00:00 :00 2019-12-21 23:59:00 No Chronic pain of both knees 300mg T reynold 1 capsule by mouth 3 times daily for 10 days. [facility] naproxen (NAPROSYN) 500 mg tablet 2019-12-11 00:00:00 2019 23:59:00 No Chronic pain of both knees 500mg Take 1 tablet by mouth 2 times daily (with meals) for 10 days. [facility] clotrimazole 1 % Oint 2019-12-11 00:00:00 2019-12-21 23:59:0 0 No Tinea corporis Apply to affected area 3 times daily for 10 day s. [facility] acetaminophen-codeine (TYLENOL/CODEINE #3) 300-30 mg per tab let 2019-11-18 00:00:00 Yes Acute pain of left knee 1{tbl} Take 1 tablet by mouth every 12 hours as needed for Pain. [facility] ibuprofen (MOTRIN) 600 mg tablet 2019-11-18 00:00:00 2020-03 00:00:00 No Acute pain of left knee 600mg Take 1 tablet by mouth every 8 hours as needed for Pain. [facility] busPIRone (BUSPAR) 10 mg tablet 2019-11-18 00:00:00 00:00:00 No Depression, unspecified depression type 10mg Take 1 tablet by mouth 3 times daily. [facility] venlafaxine (EFFEXOR XR) 150 mg extended release capsule 2019-11-18 00:00:00 2020-02-03 00:00:00 No Depression, unspecified depression typ e 300mg QD Take 2 capsules by mouth daily. [facility] naproxen (NAPROSYN) 500 mg tablet 2019-11-10 00:00:2019 11:32:05 No Acute pain of left knee 500mg Take 1 t ablet by mouth 2 times daily (with meals). [facility] gabapentin (NEURONTIN) 300 mg capsule 2019-11-10 00:00 :00 2019-12-11 00:00:00 No Encounter for medication refill 300mg Take 1 capsule by mouth 3 times daily [facility] blood glucose meter 2019-08-30 00:00:00 Yes Poorly controlled diabetes mellitus Use as directed.. [facility] lancets 28 gauge 2019-08-30 00:00:00 Yes Poorly controlled diabetes mellitus by MISCELLANEOUS route 3 times daily [facility] ketoconazole (NIZORAL) 2 % topical cream 2019-08-30 00:00:00 Yes Tinea corporis Q.5D Apply to affected area 2 times daily. [facility] blood glucose test strips 2019-08-30 00:00:00 2020-05-08 00: 00:00 No Poorly controlled diabetes mellitus 2 times weekly to test blood sugar. [facility] venlafaxine (EFFEXOR XR) 150 mg extended release capsule 2019-08-30 00:00:00 2020-02-03 00:00:00 No Depression, unspecified depression typ e 150mg QD Take 1 capsule by mouth daily. [facility] insulin detemir U-100 (LEVEMIR FLEXTOUCH) 100 unit/mL (3 mL) Pen 2019-08-30 00:00:00 2020-02-02 00:00:00 No Poorly controlled diabetes low litus 35U Q.5D Inject 35 Units under the skin 2 times daily. [facility] insulin aspart U-100 (NOVOLOG FLEXPEN) 100 unit/mL (3 mL) pe n 2019-08-30 00:00:00 2020-02-02 00:00:00 No Poorly controlled diabetes low litus 10U Inject 10 Units under the skin 3 times daily donot skip meals. [facility] linaGLIPtin (TRADJENTA) 5 mg tablet 2019-08-30 00:00:0 0 2020-02-02 00:00:00 No Poorly controlled diabetes mellitus 5mg QD Take 1 table t by mouth daily. [facility] acetaminophen-codeine (TYLENOL/CODEINE #3) 300-30 mg per tab let 2019-08-30 00:00:00 2019-11-18 00:00:00 No Herpes zoster without complica tion 1{tbl} Take 1 tablet by mouth every 12 hours as needed for Pain. [facility] busPIRone (BUSPAR) 10 mg tablet 2019-08-30 00:00:00 00:00:00 No Depression, unspecified depression type 10mg Take 1 tablet by mouth 3 times daily. [facility] clindamycin (CLEOCIN HCL) 300 mg capsule 2019-08 00:00:00 2019-09-09 23:59:00 No Cellulitis of back except buttock 300mg Take 1 capsule by mouth 3 times daily for 10 days. [facility] venlafaxine (EFFEXOR XR) 75 mg extended release capsule 2019-08-30 00:00:00 2019-08-30 00:00:00 No Depression, unspecified depression typ e 75mg QD Take 1 capsule by mouth daily. [facility] Rifampin Rifampin 2019-08-22 08:16:00 Yes 300 Twice A Day [facility] Sulfamethoxazole/Trimethoprim (Bactrim Ds Tablet) 1 Ea ch TABLET Sulfamethoxazole/Trimethoprim (Bactrim Ds Tablet) 1 Each TABLET 2019-08-22 08:16:00 Yes 1 Twice A Day [facility] Insulin Npl/Insulin Lispro (Humalog Mix 75-25 Kwikpen) 100 Unit/1 Ml INSULN.PEN Insulin Npl/Insulin Lispro (Humalog Mix 75-25 Kwikpen) 100 Unit/1 Ml INSULN.PEN 2019-08-22 06:54:00 Yes 40 Twice A Day [facility] Gabapentin Gabapentin 2019-08-22 06:51:00 Yes 600 Thr ee Times A Day [facility] Prednisone Prednisone 2019-08-22 06:51:00 Yes 10 Thr ee Times A Day [facility] Tramadol/Apap 37.5MG-325MG Tramadol/Apap 37.5MG-325MG 2019-08-22 06:5 1:00 Yes 1 Every 6 Hours as needed for Shingles Boom n [facility] gabapentin (NEURONTIN) 600 mg tablet 2019-08-14 00:00: 00 2019-09-15 23:59:00 No Herpes zoster without complication 600mg Take 1 tablet by mouth 3 times daily for 30 days. [facility] acetaminophen-codeine (TYLENOL/CODEINE #3) 300-30 mg per tab let 2019-08-14 00:00:00 2019-08-30 00:00:00 No Herpes zoster without complica tion 1{tbl} Take 1 tablet by mouth every 4 hours as needed for Pain. [facility] pen needle, diabetic 31 gauge x 3/16" needles 2019-07-27 00: 00:00 Yes Poorly controlled diabetes mellitus Inject under the s kin 3 times daily. [facility] blood glucose meter 2019-07-27 00:00:00 Yes Poorly controlled diabetes mellitus Use as directed.. [facility] blood glucose test strips 2019-07-27 00:00:00 Yes Poorly controlled diabetes mellitus 3 times daily. [facility] lancets 28 gauge 2019-07-27 00:00:00 Yes Poorly controlled diabetes mellitus Check blood sugar three times daily and as need ed. [facility] pen needle, diabetic 31 gauge x 3/16" needles 20 31-07-15 00:00:00 2020-02-02 00:00:00 No Poorly controlled diabetes mellitus Q.5D Inject under the skin 2 times daily. [facility] tropicamide (MYDRIACYL) 0.5 % ophthalmic solution 2019-07-27 00:00:00 2020-01-23 23:59:00 No Poorly controlled diabetes mellitus 1[ drp] Instill 1 Drop in each eye once as needed for up to 1 dose (for poor retina scan image). [facility] insulin aspart U-100 (NOVOLOG FLEXPEN) 100 unit/mL (3 mL) pe n 2019-07-27 00:00:00 2019-08-30 00:00:00 No Poorly controlled diabetes low litus 5U Inject 5 Units under the skin 3 times daily donot skip meals. [facility] venlafaxine (EFFEXOR XR) 75 mg extended release capsule 2019-07-27 00:00:00 2019-08-30 00:00:00 No Depression, unspecified depression typ e 75mg QD Take 1 capsule by mouth daily. [facility] insulin detemir U-100 (LEVEMIR FLEXTOUCH) 100 unit/mL (3 mL) Pen 2019-07-27 00:00:00 2019-08-30 00:00:00 No Poorly controlled diabetes low litus 35U Q.5D Inject 35 Units under the skin 2 times daily. [facility] Oseltamivir Phosphate (Tamiflu) 75 Mg CAP Oseltamivir Phosphate (Tamiflu) 75 Mg CAP 2018-09-19 09:19:00 2019-08-22 00:00:00 No 75 Twic e A Day [facility] Azithromycin (Zithromax) 250 Mg TABLET Azithromycin (Zithrom ax) 250 Mg TABLET 2018-09-19 09:07:00 2019-08-22 00:00:00 No 250 Daily [facility] Acetaminophen With Codeine (Tylenol With Codeine #3 Ta blet) 1 Each TABLET Acetaminophen With Codeine (Tylenol With Codeine #3 Tablet) 1 Each TABLET 2018-03-19 08:09:00 2019-08-22 00:00:00 No 300 Every 8 Hours as needed for Prn [facility] Ciprofloxacin Hcl (Cipro) 500 Mg TABLET Ciprofloxacin Hcl (C ipro) 500 Mg TABLET 2018-03-19 08:06:00 2019-08-22 00:00:00 No 500 Every 12 Hours [facility] Minocycline Hcl Minocycline Hcl 2018-03-19 08:06:00 2019-08-22 00:00:00 No 100 Twice A Day [facility] Doxycycline Hyclate Doxycycline Hyclate 2015-02-08 06:09:00 2015-12 00:00:00 No 100 Every 12 Hours [facility] Lrt10 Lrt10 2015-02-08 06:09:00 2016-01-02 00:00:00 No 10 Daily [facility] Prednisone Prednisone 2015-02-08 06:09:00 2016-01-02 00:00:00 No 20 Every 12 Hours [facility] Famotidine (Pepcid) 20 Mg TABLET Famotidine (Pepcid) 20 Mg T ABLET 2015-02-08 06:09:00 2015-08-28 00:00:00 No 20 Twice A Day [facility] Lisinopril Lisinopril Yes 10 Daily [facility] Venlafaxine Hcl (Effexor Xr 37.5MG Capcr*) 37.5 Mg CAP CR Venlafaxine Hcl (Effexor Xr 37.5MG Capcr*) 37.5 Mg CAPCR Yes 150 for Depression [facility] Zolpidem Tartrate (Ambien) 5 Mg TABLET Zolpidem Tartrate (Ambien ) 5 Mg TABLET Yes 5 Bedtime as needed for Insomnia [facility] Citalopram Hydrobromide (Celexa) 40 Mg TABLET Citalopr am Hydrobromide (Celexa) 40 Mg TABLET 2018-03-19 00:00:00 No 50 Daily [facility] Blood Pressure Pill Blood Pressure Pill 2017-03-31 00:00:00 No [facility] Bydron Bydron 2017-02-20 00:00:00 No [facility] Trigenta Trigenta 2017-02-20 00:00:00 No 1 Daily [facility] Azithromycin (Z-Nicholas) 250 Mg TABLET Azithromycin (Z-Nicholas) 250 Mg T ABLET 2017-01-03 00:00:00 No 250 Daily [facility] Exenatide Microspheres (Bydureon) 2 Mg VIAL Exenatide Microspheres (Bydureon) 2 Mg VIAL 2017-01-03 00:00:00 No 1 Qweekly [facility] Ondansetron (Zofran Odt) 4 Mg TAB.RAPDIS Ondansetron ( Zofran Odt) 4 Mg TAB.RAPDIS 2017-01-03 00:00:00 No 4 Every 6 Hours [facility] Sertraline Hcl (Zoloft) 100 Mg TABLET Sertraline Hcl (Zoloft) 10 0 Mg TABLET 2017-01-03 00:00:00 No 100 Daily [facility] Doxycycline Hyclate Doxycycline Hyclate 2016-07-23 00:00:00 No 100 Every 12 Hours [facility] Acetaminophen With Codeine (Tylenol With Codeine #3 Ta blet) 1 Each TABLET Acetaminophen With Codeine (Tylenol With Codeine #3 Tablet) 1 Each TABLET 2016-01-19 00:00:00 No 300 Every 6 Hours [facility] Cephalexin Monohydrate (Keflex) 500 Mg CAPSULE Cephale antonino Monohydrate (Keflex) 500 Mg CAPSULE 2016-01-19 00:00:00 No 500 Three Dewayne es A Day [facility] Albuterol Sulfate Albuterol Sulfate 2016-01-02 00:00:00 No 1 Every 4 Hours as needed for Shortness Of Breath [facility] Insulin Detemir (Levemir) 100 Unit/1 Ml VIAL Insulin D etemir (Levemir) 100 Unit/1 Ml VIAL 2016-01-02 00:00:00 No 44 Daily [facility] Insulin Human Lispro (Humalog) 100 Units/Ml ML Insulin Human Lispro (Humalog) 100 Units/Ml ML 2016-01-02 00:00:00 No Daily [facility] Albuterol Sulf (Albuterol Sulfate) 4 Mg TAB Albuterol Sulf (Albuterol Sulfate) 4 Mg TAB 2014-10-10 00:00:00 No 4 Twice A Day [facility] Albuterol Sulfate (Ventolin Hfa) 18 Gm HFA.AER.AD Albu terol Sulfate (Ventolin Hfa) 18 Gm HFA.AER.AD 2014-10-10 00:00:00 No Ev rosana 4 Hours [facility] Levofloxacin (Levaquin) 500 Mg TABLET Levofloxacin (Levaquin) 50 0 Mg TABLET 2014-10-06 00:00:00 No 500 Daily [facility] Estradiol Estradiol 2014-06-05 00:00:00 No .5 Daily [facility] Atorvastatin Calcium Atorvastatin Calcium 2014-05-04 00:00:00 No 10 Daily [facility] Glimepiride Glimepiride 2014-05-04 00:00:00 No 4 D aily [facility] Lamotrigine (Lamictal) 25 Mg TAB Lamotrigine (Lamictal) 25 Mg TA B 2014-05-04 00:00:00 No 25 Daily [facility] Pioglitazone Hcl (Actos) 30 Mg TABLET Pioglitazone Hcl (Actos) 3 0 Mg TABLET 2014-05-04 00:00:00 No 30 Daily [facility] Sertraline Hcl (Zoloft) 100 Mg TABLET Sertraline Hcl (Zoloft) 10 0 Mg TABLET 2014-05-04 00:00:00 No 100 Daily [facility] Vital Signs Vital Name Observation Time Observation Value Comments Source Weight 2020-07-24 06:51:00 138 [lb_av] [facility] BMI (Body Mass Index) 2020-07-24 06:51:00 27.0 kg/m2 [facility] Weight 2020-06-30 14:34:00 138 [lb_av] [facility] BMI (Body Mass Index) 2020-06-30 14:34:00 27.0 kg/m2 [facility] Weight 2020-06-13 14:20:00 138 [lb_av] [facility] BMI (Body Mass Index) 2020-06-13 14:20:00 27.0 kg/m2 [facility] Systolic blood pressure 2020-04-27 11:53:00 128 mm[Hg] [facility] Diastolic blood pressure 2020-04-27 11:53:00 91 mm[Hg] [facility] Heart rate 2020-04-27 11:53:00 113 /min [facility] Body temperature 2020-04-27 11:53:00 36.89 Nanda Gabriela is [facility] Respiratory rate 2020-04-27 11:53:00 16 /min Gabriela is [facility] Body height 2020-04-27 11:53:00 157.5 cm [facility] Body weight 2020-04-27 11:53:00 66.951 kg [facility] BMI 2020-04-27 11:53:00 27.00 kg/m2 [facility] Oxygen saturation in Arterial blood by Pulse oximetry 04-27 11:53:00 99 /min [facility] Body Temperature 2019-08-22 06:42:00 96.3 [degF] [facility] Procedures Procedure Date / Time Performed Performing Clinician [facility] e Computed tomography of brain without radiopaque contrast 2020-06 00:00:00 [facility] DRAINAGE OF SKIN ABSCESS 2020-01-11 00:00:00 [facility] MAMMOGRAM BILAT SCREEN DIGITAL 2019-11-23 14:35:22 [facility] 4 OR MORE VIEWS (TRAUMA - AP/LAT/B OBL) 2019-11-23 11:52:16 [facility] ALANINE AMINOTRASFERASE/ASPARTATE AMINOTRANSFERASE (AL T/AST) 2019-10-21 11:11:00 [facility] CREATININE 2019-10-21 11:11:00 [facility] ELECTROLYTES 2019-10-21 11:11:00 GladysKianan [facility] HEMOGLOBIN A1C 2019-10-21 11:11:00 GladysKiana [facility] XRAY SPINE THORACIC 2 VIEWS 2019-08-30 14:43:02 [facility] of Care Planned Activity Planned Date Details Comments Source Future Scheduled Test 2020-11-23 00:00:00 Breast Cancer Scrn (Yearly) [code = Breast Cancer Scrn (Yearly)] [facility] Scheduled Test 2020-10-21 00:00:00 Hemoglobin A1c pancho surement (procedure) [code = 18340586] [facility] Scheduled Test 2020-08-14 00:00:00 DM Foot Exam (Year ly) [code = DM Foot Exam (Yearly)] [facility] Scheduled Test 2020-08-03 00:00:00 DM Retinal Exam (Y early) [code = DM Retinal Exam (Yearly)] [facility] Scheduled Test 2020-07-13 00:00:00 IMM Influenza Seas onal Jul to December (>/= 19 yrs) [code = IMM Influenza Seasonal Jul to December (>/= 19 yrs)] [facility] Scheduled Test 1993 00:00:00 Urine screening fo r protein (procedure) [code = 447679129] [facility] Instructions Sprains - Ankle [facility] Encounters Start Date/Time End Date/Time Encounter Type Admission Type Attendi [facility] Care Department Encounter ID Source 2020-09-14 00:00:00 2020-09-14 00:00:00 Outpatient Xavier TURCIOS [facility] [id number] [facility] 2020-08-22 00:00:00 2020-08-22 00:00:00 Outpatient CANTCHIKA TAR A [facility] [id number] [facility] 2020-08-08 15:47:00 2020-08-11 12:06:00 Outpatient HCPCD [facility] [id number] 2020-07-24 06:52:00 2020-07-24 06:52:00 [facility] [id number] [facility] 2020 07:02:53 2020 15:08:05 Outpatient CRISTAL TAR A [facility] [id number] [facility] 2020-07-10 00:00:00 2020-07-10 00:00:00 Outpatient CANTCHIKA TAR A [facility] [id number] [facility] 2020-06-30 14:50:00 2020-06-30 15:31:00 Departed Emergency Room 1 ANTOINEMTXavier [facility] [id number] [facility] 2020-06-22 07:32:40 2020-06-22 08:38:12 Outpatient Xavier TURCIOS [facility] [id number] [facility] 2020-06-20 00:00:00 2020-06-20 00:00:00 Outpatient CRISTAL TAR A [facility] [id number] [facility] 2020-06-13 14:09:00 2020-06-13 19:23:00 Departed Emergency Room 1 CHEIKH PIKE [facility] [id number] [facility] 2020-06-13 00:00:00 2020-06-13 00:00:00 Outpatient [facility] [id number] [facility] 2020-06-05 07:38:25 2020-06-05 15:26:27 Outpatient CRISTAL TAR A [facility] [id number] [facility] 2020-05-29 00:00:00 2020-05-29 00:00:00 Outpatient [facility] [id number] [facility] 2020-05-15 07:46:15 2020-05-15 16:55:04 Outpatient LILIAN YUN [facility] [id number] [facility] 2020-05-08 07:32:52 2020-05-08 07:32:52 Outpatient [facility] [id number] [facility] 2020-04-27 11:53:27 2020-04-27 11:53:27 Outpatient [facility] [id number] [facility] 2020-04-24 07:16:47 2020-04-24 07:16:47 Outpatient [facility] [id number] [facility] 2020-04-20 07:31:57 2020-04-20 07:31:57 Outpatient [facility] [id number] [facility] 2020-04-13 00:00:00 2020-04-13 00:00:00 Outpatient [facility] [id number] [facility] 2020-04-04 07:37:01 2020-04-04 07:37:01 Outpatient [facility] [id number] [facility] 2020-03-27 00:00:00 2020-03-27 00:00:00 Outpatient [facility] [id number] [facility] 2020-03-22 11:54:50 2020-03-22 11:54:50 Outpatient [facility] [id number] [facility] 2020-03-21 00:00:00 2020-03-21 00:00:00 Outpatient [facility] [id number] [facility] 2020-03-16 00:00:00 2020-03-16 00:00:00 Outpatient [facility] [id number] [facility] 2020-03-14 09:49:41 2020-03-14 09:49:41 Outpatient [facility] [id number] [facility] 2020-02-29 07:32:58 2020-02-29 07:32:58 Outpatient [facility] [id number] [facility] 2020-02-28 07:31:35 2020-02-28 07:31:35 Outpatient [facility] [id number] [facility] 2020-02-16 00:00:00 2020-02-16 00:00:00 Outpatient [facility] [id number] [facility] 2020-02-15 13:24:30 2020-02-15 13:24:30 Outpatient [facility] [id number] [facility] 2020-02-11 00:00:00 2020-02-11 00:00:00 Outpatient [facility] [id number] [facility] 2020-02-09 07:35:10 2020-02-09 07:35:10 Outpatient [facility] [id number] [facility] 2020-02-03 07:28:39 2020-02-03 07:28:39 Outpatient [facility] [id number] [facility] 2020-02-02 09:56:59 2020-02-02 09:56:59 Outpatient [facility] [id number] [facility] 2020-01-11 13:05:00 2020-01-11 15:29:00 Departed Emergency Room 1 GAUTAM ISABEL [id number] [facility] 2019-12-31 10:09:00 2019-12-31 16:13:00 Departed Emergency Room 1 BK LEMON [facility] [id number] [facility] 2019-12-28 00:00:00 2019-12-28 00:00:00 Outpatient [facility] [id number] [facility] 2019-12-16 00:00:00 2019-12-16 00:00:00 Outpatient [facility] [id number] [facility] 2019-12-14 00:00:00 2019-12-14 00:00:00 Outpatient [facility] [id number] [facility] 2019-12-11 09:47:37 2019-12-11 09:47:37 Emergency [facility] [id number] [facility] 2019-12-07 15:18:05 2019-12-07 15:18:05 Outpatient [facility] [id number] [facility] 2019-11-30 12:39:58 2019-11-30 12:39:58 Outpatient [facility] [id number] [facility] 2019-11-24 00:00:00 2019-11-24 00:00:00 Outpatient [facility] [id number] [facility] 2019-11-23 13:37:58 2019-11-23 13:37:58 Outpatient [facility] [id number] [facility] 2019-11-23 11:41:15 2019-11-23 11:41:15 Outpatient [facility] [id number] [facility] 2019-11-18 13:30:14 2019-11-18 13:30:14 Outpatient [facility] [id number] [facility] 2019-11-18 00:00:00 2019-11-18 00:00:00 Outpatient [facility] [id number] [facility] 2019-11-18 00:00:00 2019-11-18 00:00:00 Outpatient [facility] [id number] [facility] 2019-11-15 16:56:00 2019-11-15 17:42:00 Departed Emergency Room [facility] [id number] [facility] 2019-11-10 11:41:51 2019-11-10 11:41:51 Outpatient [facility] [id number] [facility] 2019-10-25 00:00:00 2019-10-25 00:00:00 Outpatient [facility] [id number] [facility] 2019-10-21 11:08:32 2019-10-21 11:08:32 Outpatient [facility] [id number] [facility] 2019-10-21 10:21:40 2019-10-21 10:21:40 Outpatient [facility] [id number] [facility] 2019-10-21 00:00:00 2019-10-21 00:00:00 Outpatient [facility] [id number] [facility] 2019-10-19 00:00:00 2019-10-19 00:00:00 Outpatient [facility] [id number] [facility] 2019-10-10 07:50:00 2019-10-10 10:50:00 Departed Emergency Room 1 CHEIKH PIKE [facility] [id number] [facility] 2019-09-30 00:00:00 2019-09-30 00:00:00 Outpatient [facility] [id number] [facility] 2019-09-08 00:00:00 2019-09-08 00:00:00 Outpatient [facility] [id number] [facility] 2019-09-08 00:00:00 2019-09-08 00:00:00 Outpatient [facility] [id number] [facility] 2019-08-30 14:33:16 2019-08-30 14:33:16 Outpatient [facility] [id number] [facility] 2019-08-30 12:56:42 2019-08-30 12:56:42 Outpatient [facility] [id number] [facility] 2019-08-19 13:41:00 2019-08-22 09:54:00 Discharged Inpatient 1 JAZLYN ARZATE [facility] [id number] [facility] 2019-08-19 00:00:00 2019-08-19 00:00:00 Outpatient [facility] [id number] [facility] 2019-08-16 19:21:00 2019-08-17 03:00:00 Departed Emergency Room [facility] [id number] [facility] Patients [facility] 2019-08-14 10:09:03 2019-08-14 10:09:03 Outpatient [facility] [id number] [facility] 2019-08-03 09:09:27 2019-08-03 09:09:27 Outpatient [facility] [id number] [facility] 2019-07-28 00:00:00 2019-07-28 00:00:00 Outpatient [facility] [id number] [facility] 2019-07-27 12:00:30 2019-07-27 12:00:30 Outpatient [facility] [id number] [facility] 2019-07-27 10:00:36 2019-07-27 10:00:36 Outpatient [facility] [id number] [facility] 2019-07-27 00:00:00 2019-07-27 00:00:00 Outpatient [facility] [id number] [facility] 2019-07-23 18:13:00 2019-07-23 19:44:00 Departed Emergency Room [facility] [id number] [facility] 2019-06-17 18:18:00 2019-06-17 23:49:00 Departed Emergency Room 1 [facility] [id number] [facility] 2019-01-23 21:40:00 2019-01-24 00:45:00 Departed Emergency Room 1 [facility] [id number] [facility] n[facility]ki [facility] 2018-09-19 09:56:00 2018-09-19 11:10:00 Departed Emergency Room [facility] [id number] [facility] 2018-09-10 20:41:00 2018-09-10 20:55:00 Departed Emergency Room [facility] [id number] [facility] 2018-09-06 08:16:00 2018-09-06 10:05:00 Departed Emergency Room [facility] [id number] [facility] - Patients [facility] 2018-03-17 13:10:00 2018-03-19 09:55:00 Discharged Inpatient 1 JUAN DUBOSE [facility] [id number] [facility] 2018-01-17 19:55:00 2018-01-17 21:41:00 Departed Emergency Room ER SURYA DEAN [facility] [id number] [facility] 2018-01-15 17:59:00 2018-01-15 20:39:00 Departed Emergency Room ER SHAHID JACKSON [facility] [id number] [facility] 2017-12-28 12:15:00 2017-12-28 12:40:00 Departed Emergency Room [facility] [id number] [facility] - Patients [facility] 2017-12-04 13:19:00 2017-12-04 20:28:00 Departed Emergency Room [facility] [id number] [facility] - Patients [facility] 2017-03-31 17:22:00 2017-04-01 01:14:00 Departed Emergency Room [facility] [id number] [facility] - Patients [facility] 2017-02-20 12:53:00 2017-02-20 17:09:00 Departed Emergency Room [facility] [id number] [facility] Results Test Description Test Time Test Comments Results Result Comments Source GLUBED 2020-08-16 15:44:00 Test Item GLUBED (test code = GLUBED) 253 mg/dL 74-106 H Performed by certified timber sizer operator at [facility] BASIC METABOLIC [id number] 11:55:00* Test Item Value Reference Range Interpretation Comments SODIUM (test code = NA) 132 mmol/L 136-145 L POTASSIUM (test code = K) 4.0 mmol/L 3.5-5.1 N CHLORIDE (test code = CL) 94.0 mmol/L 98-107 L CARBON DIOXIDE (test code = CO2) 25.0 mmol/L 21-32 N ANION GAP (test code = GAP) 17.0 10-20 N GLUCOSE (test code = GLU) 573 mg/dL 74-106 Re sults called to DR. SANTOS by JEREMY 08/16/20 [id number] results verified and read back by Nurse? Y BLOOD UREA NITROGEN (test code = BUN) 7 mg/dL 7-18 N GLOMERULAR FILTRATION RATE (test code = GFR) > 60 mL/min >=60 Estimated GFR by using Modified MDRD formula.Chronic kidney disease is defined as either kidney damageor GFR <60 mL/min/1.73 m2 for >3 months. CREATININE (test code = CREAT) 0.80 mg/dL 0.55-1.02 N Note change in reference range due to change in reagent. BUN/CREATININE RATIO (test code = BUN/CREA) 8.8 10-20 L CALCIUM (test code = CA) 9.7 mg/dL 8.5-10.1 N HEPATIC FUNCTION [id number] 11:55:00* Test Item Value Reference Range Interpretation Comments TOTAL PROTEIN (test code = PROT) 7.1 gram/dL 6.4-8.2 N ALBUMIN (test code = ALB) 3.6 g/dL 3.4-5.0 N GLOBULIN (test code = GLOB) 3.5 gram/dL 2.7-4.2 N ALBUMIN/GLOBULIN RATIO (test code = A/G) 1.0 0.75-1.50 N BILIRUBIN TOTAL (test code = BILT) 0.10 mg/dL 0.0-1.0 N BILIRUBIN DIRECT (test code = BILD) 0.08 mg/dL 0.0-0.20 N SGOT/AST (test code = AST) 13 IUnit/L 15-37 L SGPT/ALT (test code = ALT) 16 IUnit/L 12-78 N ALKALINE PHOSPHATASE TOTAL (test code = ALKP) 139 IUnit/L 45-117 H Note change in reference range due to change in reagent. LACTIC DEHYDROGENASE(LDH)2020-08-16 11:55:00* Test Item Value Reference Range Interpretation Comments LACTIC DEHYDROGENASE(LDH) (test code = LDH) 205 IUnit/L 84-246 N [id number] 11:55:00* Test Item Value Reference Range Interpretation Comments LIPASE (test code = LIP) 91 U/L 73.0-393.0 N HCG SERUM [id number] 11:55:00* Test Item Value Reference Range Interpretation Comments HCG SERUM QUAL (test code = HCGQL) NEGATIVE NEGATIVE This HCGQL test is NOT applicable for MALE patients.Check with nurse about probable order error.If Tumor Marker Test needed, nurse should order test "HCGTU"(Test #550.17102) [id number] 11:55:00* Test Item Value Reference Range Interpretation Comments TROPONIN-I (test code = TROPI) <0.015 ng/mL 0-0.045 N [id number] 11:55:00* Test Item Value Reference Range Interpretation Comments FERRITIN (test code = VANESSA) 236 ng/mL 8-388 N B-TYPE NATRIURETIC [id number] 11:33:00* Test Item Value Reference Range Interpretation Comments B-TYPE NATRIURETIC PEPTIDE (test code = BNP) 33.76 pgram/mL 0-100 N COVID 19 INHOUSE [id number] 11:24:00* Test Item Value Reference Range Interpretation Comments COVID 19 INHOUSE AG (test code = [id number]) NEGATIVE C REACTIVE [id number] 11:21:00* Test Item Value Reference Range Interpretation Comments C REACTIVE PROTEIN (test code = CRP) 0.97 mg/dL 0-0.3 H BASIC METABOLIC [id number] 11:12:00* Test Item Value Reference Range Interpretation Comments SODIUM (test code = NA) 132 mmol/L 136-145 L POTASSIUM (test code = K) 4.0 mmol/L 3.5-5.1 N CHLORIDE (test code = CL) 94.0 mmol/L 98-107 L CARBON DIOXIDE (test code [...] code = CA) mg/dL 8.5-10.1 HEPATIC FUNCTION [id number] 11:12:00* Test Item Value Reference Range Interpretation Comments [...] TOTAL (test code = ALKP) IUnit/L 45-117 LACTIC DEHYDROGENASE(LDH)2020-08-16 11:12:00* Test Item Value Reference Range Interpretation Comments LACTIC DEHYDROGENASE(LDH) (test code = LDH) IUnit/L 84-246 [id number] 11:12:00* Test Item Value Reference Range Interpretation Comments LIPASE (test code = LIP) U/L 73.0-393.0 HCG SERUM [id number] 11:12:00* Test Item Value Reference Range Interpretation Comments HCG SERUM QUAL (test code = HCGQL) NEGATIVE NEGATIVE This HCGQL test is NOT applicable for MALE patients.Check with nurse about probable order error.If Tumor Marker Test needed, nurse should order test "HCGTU"(Test #550.88264) [id number] 11:12:00* Test Item Value Reference Range Interpretation Comments TROPONIN-I (test code = TROPI) ng/mL 0-0.045 [id number] 11:12:00* Test Item Value Reference Range Interpretation Comments FERRITIN (test code = VANESSA) ng/mL 8-388 BASIC METABOLIC [id number] 11:11:00* Test Item Value Reference Range Interpretation Comments SODIUM (test code = NA) mmol/L 136-145 POTASSIUM (test code = K) mmol/L 3.5-5.1 CHLORIDE (test code = CL) mmol/L 98-107 CARBON DIOXIDE (test code = CO2) mmol/L 21-32 ANION GAP (test code = GAP) 10-20 GLUCOSE (test code = GLU) mg/dL 74-106 BLOOD UREA NITROGEN (test code = BUN) mg/dL 7-18 GLOMERULAR FILTRATION RATE (test code = GFR) mL/min >=60 CREATININE (test code = CREAT) mg/dL 0.55-1.02 BUN/CREATININE RATIO (test code = BUN/CREA) 10-20 CALCIUM (test code = CA) mg/dL 8.5-10.1 HEPATIC FUNCTION [id number] 11:11:00* Test Item Value Reference Range Interpretation Comments [...] TOTAL (test code = ALKP) IUnit/L 45-117 LACTIC DEHYDROGENASE(LDH)2020-08-16 11:11:00* Test Item Value Reference Range Interpretation Comments LACTIC DEHYDROGENASE(LDH) (test code = LDH) IUnit/L 84-246 [id number] 11:11:00* Test Item Value Reference Range Interpretation Comments LIPASE (test code = LIP) U/L 73.0-393.0 HCG SERUM [id number] 11:11:00* Test Item Value Reference Range Interpretation Comments HCG SERUM QUAL (test code = HCGQL) NEGATIVE NEGATIVE This HCGQL test is NOT applicable for MALE patients.Check with nurse about probable order error.If Tumor Marker Test needed, nurse should order test "HCGTU"(Test #550.90098) [id number] 11:11:00* Test Item Value Reference Range Interpretation Comments TROPONIN-I (test code = TROPI) ng/mL 0-0.045 [id number] 11:11:00* Test Item Value Reference Range Interpretation Comments FERRITIN (test code = VANESSA) ng/mL 8-388 CBC W/AUTO [id number] 10:58:00* Test Item Value Reference Range Interpretation Comments WHITE BLOOD CELL (test code = WBC) 8.5 K/mm3 4.5-12.5 N RED BLOOD CELL (test code = RBC) 4.68 mill/mm3 3.7-5.2 N HEMOGLOBIN (test code = HGB) 13.3 gram/dL 11.5-15.5 N HEMATOCRIT (test code = HCT) 40.0 % 36.0-46.0 N MEAN CELL VOLUME (test code = MCV) 85.5 fL 80-98 N MEAN CELL HGB (test code = MCH) 28.4 picogram 27.0-33.0 N MEAN CELL HGB CONCETRATION (test code = MCHC) 33.3 gram/dL 33.0-36. 0 N RED CELL DISTRIBUTION WIDTH (test code = RDW) 11.9 % 11.6-16. 2 N RED CELL DISTRIBUTION WIDTH SD (test code = RDW-SD) 36.5 fL 37 .0-51.0 L PLATELET COUNT (test code = PLT) 261 K/mm3 150-450 N MEAN PLATELET VOLUME (test code = MPV) 11.3 fL 6.7-11.0 H NEUTROPHIL % (test code = NT%) 73.8 % 39.0-69.0 H IMMATURE GRANULOCYTE % (test code = IG%) 0.2 % 0.0-5.0 N LYMPHOCYTE % (test code = LY%) 19.5 % 25.0-55.0 L MONOCYTE % (test code = MO%) 5.4 % 0.0-10.0 N EOSINOPHIL % (test code = EO%) 0.7 % 0.0-5.0 N BASOPHIL % (test code = BA%) 0.4 % 0.0-1.0 N NUCLEATED RBC % (test code = NRBC%) 0.0 % 0-0 N NEUTROPHIL # (test code = NT#) 6.30 K/mm3 1.8-7.7 N IMMATURE GRANULOCYTE # (test code = IG#) 0.02 x10 3/uL 0-0.03 N LYMPHOCYTE # (test code = LY#) 1.66 K/mm3 1.0-5.0 N MONOCYTE # (test code = MO#) 0.46 K/mm3 0-0.8 N EOSINOPHIL # (test code = EO#) 0.06 K/mm3 0.0-0.5 N BASOPHIL # (test code = BA#) 0.03 K/mm3 0.0-0.2 N NUCLEATED RBC # (test code = NRBC#) 0.00 K/mm3 0.0-0.1 N MANUAL DIFF REQUIRED (test code = MDIFF) NO - XR CHEST 1 [id number] 10:24:00 [facility] 1975 Sex: F FAX: Deisi Terrazas NP [place]: B St: REG FAX: Lamberto Major III Name: YOLETTE URIBE [facility] : 1975 Age/S: 45/F Gustabo Garcia Unit #: [id number] Loc: [place] [address] Phys: Deisi Terrazas NP A cct: [id number] Dis Date: Status: REG ER PHONE #: [phone] Exam Date: 08/16/2020 1015 FAX #: [phone] Reason: SHORTNESS OF BREATH EXAMS: CPT CODE: [id number] XR CHEST 1 V [id number] REASON FOR EXAM: SHORTNESS OF BREATH Exam Order Date: 08/16/20 10:05 AM Ordering MFrancisco: Deisi Terrazas NP PROCED URE: - XR CHEST 1 V COMPARISON: Chest x-ray February 21, 2020 FINDINGS: The lungs are clear. There is no pleural effusion or pn eumothorax. Pulmonary vascularity is within normal limits. C ardiomediastinal silhouette is normal in size for technique. The mediastin al contours are within normal limits. Musculoskeletal structures a re within normal limits. The visualized upper abdomen is within no rmal limits. IMPRESSION: No acute cardiopulmonar y process. Location: [facility] at 1024 Reported and signed by: Heriberto John MD CC: Deisi Terrazas NP; Lamberto Shrestha III, MD Technologist: Zoila Beckman(R) Trnscrd Date/Time/By: 08/16/2020 (1024) : By: [email or web address] Orig Print D/T : S: 08/16/2020 (2813) PAGE 1 Sig nicki Report CHEST SINGLE (PORTABLE)2020-08-15 18:46:00[facility] : 1975 Sex: F [facility] [address] [address] Patient Name: YOLETTE URIBE MR #: [id number] : 1975 Age/Sex: 45/F Req #: [id number] Adm Physician: Ordered by: CROW CARLOS DO Report #: [id number] Location: ER Room/Bed: Procedure: [id number] DX/CHEST SINGLE (PORTABLE) Exam Kamari e: 08/15/20 Exam Time: 1729 REPORT STATUS: Signed EXAMINATION: CHEST SINGLE (PORTABL E) INDICATION: Cough for 3 weeks suspicious for pneumonia Pneumonia. COMPARISON: Multiple prior x-rays including most recent on 06/13/2020. FINDIN GS: TUBES and LINES: None. LUNGS: Normal lung volumes. There ar e nodular opacities at bilateral lung bases. No consolidations. PLEURA: No pleural effusion or pneumothorax. HEART AND MEDIASTINUM: The cardiomed iastinal silhouette is unremarkable. BONES AND SOFT TISSUES: No acute osseous lesion. Soft tissues are unremarkable. UPPER ABDOMEN: No free ai r under the diaphragm. IMPRESSION: Nodular opacities at the bilat eral lung bases which may represent atelectasis and/or multifocal pneumonia in the proper clinical context. Recommend repeat chest x-ray in 6-8 weeks to ens ure resolution. Signed by: Rodrigo Quiroz MD on 08/15/2020 6:48 PM Dic tated By: RODRIGO QUIROZ MD 47 COPY TO: XANDER CARLOS DO ANKLE 3 + VIEWS [id number] 08:20:[address] [address] Patient Name: YOLETTE URIBE MR #: [id number] : 1975 Age/Sex: 45/F Req #: [id number] Adm Physician: Ordered by: CROW CARLOS DO Report #: [id number] Location: ER Room/Bed: Procedure: [id number] DX/ANKLE 3 + VIEWS RIGHT Exam Date: 07/24/20 Exam Time: 07 REPORT STATUS: Signed Right ankle, 3 views. History: Fall, right ankle pain. Findings: There is mild diffuse soft tissue swelling. Bone mineralization is normal. There is no jaelyn dence of fracture or dislocation. There are no lytic or sclerotic lesions. The re is mild joint space narrowing with osteophytosis. IMPRESSION: Mild right ankle DJD. Signed by: Bk Gonzalez on 07/24/2020 8:22 AM Dict ated By: BK GONZALEZ MD 1 COPY TO: AFUA CARLOS DO FOOT RIGHT RBYKTXMJ8922-30-19 15:16:[address] [address] Patient Name: YOLETTE URIBE MR #: [id number] : 1975 Age/Sex: 44/F Req #: [id number] [facility] Physician: Ordered by: CROW CARLOS DO Report #: [id number] Location: ER Room/Bed: Procedure: [id number] DX/FOOT RIGH T COMPLETE Exam Date: 06/30/20 Exam Time: 1445 REPORT STATUS: Signed Exam: Right foot 3 views History: Fall, toe pain Comparison: Right foot 3 views 08/26/2015, right foot 3 views 01/17/2018, right foot 3 views 10/10/2019 Fi ndings: No acute, displaced fracture or dislocation. Appropriate alignment between the medial cuneiform and second metatarsal base in keeping with an int act Lisfranc ligament. 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 Soft tissues are unremarkable. Impression: No acute osseo us abnormality. Signed by: Dr. Jeannette Newell M.D. on 06/30/2020 3:21 PM Dictated By: JEANNETTE NEWELL MD 1521 Transcribed By: JEMLA on 06/30/20 1521 COPY TO: CROW MCDONALD DO Serum or plasma sodium measurement (moles/volume) 2020-06-13 17:13:00* Test Item Value Reference Range Interpretation Comments Sodium Level (test code = 2951-2) 139 136-145 [facility] potassium measurement (moles/volume)2020-06-13 17:13:00* Test Item Value Reference Range Interpretation Comments Potassium Level (test code = 2823-3) 3.5 3.5-5.1 [facility] or plasma chloride measurement (moles/volume)2020-06-13 17:13:00* Test Item Value Reference Range Interpretation Comments Chloride Level (test code = 2075-0) 108 98-107 [facility] or plasma carbon dioxide, total measurement (moles/volume)2020-06-13 17:13:00* Test Item Value Reference Range Interpretation Comments Carbon Dioxide Level (test code = 2028-9) 21 22-29 [facility] or plasma anion wyl2872-03-65 17:13:00* Test Item Value Reference Range Interpretation Comments Anion Gap (test code = 16898-9) 13.5 8-16 [facility] or plasma urea nitrogen measurement (mass/volume)2020-06-13 17:13:00* Test Item Value Reference Range Interpretation Comments Blood Urea Nitrogen (test code = 3094-0) 8 7-26 [facility] or plasma creatinine measurement (mass/volume)2020-06-13 17:13:00* Test Item Value Reference Range Interpretation Comments Creatinine (test code = 2160-0) 0.60 0.57-1.11 [facility] or plasma urea nitrogen/creatinine mass zibyp3712-44-09 17:13:00* Test Item Value Reference Range Interpretation Comments BUN/Creatinine Ratio (test code = 3097-3) 13 6-25 [facility] CenterEstimated glomerular filtration rate (GFR) tgqmncireksyz0578-11-28 17:13:00* Test Item Value Reference Range Interpretation Comments Estimat Glomerular Filtration Rate (test code = 889500957) > 60 >60 Ranges were taken from the National Kidney Disease Education Program and the [facility] Kidney Foundation literature.Reference ranges:60 or greater: Mdenyx66-61 ( for 3 consecutive months): Chronic kidney disease 15 or less: Kidney failureMethodist [facility] Medical CenterGlucose alsaqvpuwmt0608-21-74 17:13:00* Test Item Value Reference Range Interpretation Comments Glucose Level (test code = TTI7198) 141 74-118 [facility] or plasma calcium measurement (mass/volume)2020-06-13 17:13:00* Test Item Value Reference Range Interpretation Comments Calcium Level (test code = 08428-9) 7.8 8.4-10.2 [facility] CenterFluoroscopic procedure less than one hour honcyuuf5345-07-46 17:13:00* Test Item Value Reference Range Interpretation Comments Lactic Acid Level (test code = Lactic Acid Level) 2.5 0.5- 2.0 Results repeated and called to BARBRA MARTINEZ RN at 1737 on 06/13/20 by Phan Velazco. Read back and verified.[facility] or plasma sodium measurement (moles/volume)2020-06-13 17:13:00* Test Item Value Reference Range Interpretation Comments Sodium Level (test code = 2951-2) 139 136-145 [facility] or plasma potassium measurement (moles/volume)2020-06-13 17:13:00* Test Item Value Reference Range Interpretation Comments Potassium Level (test code = 2823-3) 3.5 3.5-5.1 [facility] or plasma chloride measurement (moles/volume)2020-06-13 17:13:00* Test Item Value Reference Range Interpretation Comments Chloride Level (test code = 2075-0) 108 98-107 [facility] or plasma carbon dioxide, total measurement (moles/volume)2020-06-13 17:13:00* Test Item Value Reference Range Interpretation Comments Carbon Dioxide Level (test code = 2028-9) 21 22-29 [facility] or plasma anion wif8918-87-54 17:13:00* Test Item Value Reference Range Interpretation Comments Anion Gap (test code = 43429-2) 13.5 8-16 [facility] or plasma urea nitrogen measurement (mass/volume)2020-06-13 17:13:00* Test Item Value Reference Range Interpretation Comments Blood Urea Nitrogen (test code = 3094-0) 8 7-26 [facility] or plasma creatinine measurement (mass/volume)2020-06-13 17:13:00* Test Item Value Reference Range Interpretation Comments Creatinine (test code = 2160-0) 0.60 0.57-1.11 [facility] or plasma urea nitrogen/creatinine mass jxhwt2707-67-03 17:13:00* Test Item Value Reference Range Interpretation Comments BUN/Creatinine Ratio (test code = 3097-3) 13 6-25 [facility] CenterEstimated glomerular filtration rate (GFR) ozqdqtppjoyio7023-68-02 17:13:00* Test Item Value Reference Range Interpretation Comments Estimat Glomerular Filtration Rate (test code = 424154874) > 60 >60 Ranges were taken from the National Kidney Disease Education Program and the [facility] Kidney Foundation literature.Reference ranges:60 or greater: Zpdyut86-69 ( for 3 consecutive months): Chronic kidney disease 15 or less: Kidney failureMethodist [facility] Medical CenterGlucose asxxhxngxcz1669-22-17 17:13:00* Test Item Value Reference Range Interpretation Comments Glucose Level (test code = GXY2971) 141 74-118 [facility] or plasma calcium measurement (mass/volume)2020-06-13 17:13:00* Test Item Value Reference Range Interpretation Comments Calcium Level (test code = 40392-3) 7.8 8.4-10.2 [facility] CenterFluoroscopic procedure less than one hour mtxltcun1389-34-16 17:13:00* Test Item Value Reference Range Interpretation Comments Lactic Acid Level (test code = Lactic Acid Level) 2.5 0.5- 2.0 Results repeated and called to BARBRA MARTINEZ RN at 1737 on 06/13/20 by Phan Velazco. Read back and verified.[facility] or plasma sodium measurement (moles/volume)2020-06-13 17:13:00* Test Item Value Reference Range Interpretation Comments Sodium Level (test code = 2951-2) 139 136-145 [facility] or plasma potassium measurement (moles/volume)2020-06-13 17:13:00* Test Item Value Reference Range Interpretation Comments Potassium Level (test code = 2823-3) 3.5 3.5-5.1 [facility] or plasma chloride measurement (moles/volume)2020-06-13 17:13:00* Test Item Value Reference Range Interpretation Comments Chloride Level (test code = 2075-0) 108 98-107 [facility] or plasma carbon dioxide, total measurement (moles/volume)2020-06-13 17:13:00* Test Item Value Reference Range Interpretation Comments Carbon Dioxide Level (test code = 2028-9) 21 22-29 [facility] or plasma anion psi4387-37-81 17:13:00* Test Item Value Reference Range Interpretation Comments Anion Gap (test code = 69098-8) 13.5 8-16 [facility] or plasma urea nitrogen measurement (mass/volume)2020-06-13 17:13:00* Test Item Value Reference Range Interpretation Comments Blood Urea Nitrogen (test code = 3094-0) 8 7-26 [facility] or plasma creatinine measurement (mass/volume)2020-06-13 17:13:00* Test Item Value Reference Range Interpretation Comments Creatinine (test code = 2160-0) 0.60 0.57-1.11 [facility] or plasma urea nitrogen/creatinine mass vnqey2329-61-02 17:13:00* Test Item Value Reference Range Interpretation Comments BUN/Creatinine Ratio (test code = 3097-3) 13 6-25 [facility] CenterEstimated glomerular filtration rate (GFR) ppnsbiatmmfzu9186-99-30 17:13:00* Test Item Value Reference Range Interpretation Comments Estimat Glomerular Filtration Rate (test code = 024292566) > 60 >60 Ranges were taken from the National Kidney Disease Education Program and the [facility] Kid[facility] Foundation literature.Reference ranges:60 or greater: Sakqwg80-19 ( for 3 consecutive months): Chronic kidney disease 15 or less: Kidney failureMethodist [facility] Medical CenterGlucose isqraldacrt9238-65-99 17:13:00* Test Item Value Reference Range Interpretation Comments Glucose Level (test code = QQY7631) 141 74-118 [facility] or plasma calcium measurement (mass/volume)2020-06-13 17:13:00* Test Item Value Reference Range Interpretation Comments Calcium Level (test code = 13024-2) 7.8 8.4-10.2 [facility] CenterFluoroscopic procedure less than one hour jtxrmmpu8181-15-59 17:13:00* Test Item Value Reference Range Interpretation Comments Lactic Acid Level (test code = Lactic Acid Level) 2.5 0.5- 2.0 Results repeated and called to BARBRA MARTINEZ RN at 1737 on 06/13/20 by Phan Velazco. Read back and verified.[facility] Capillary blood glucose measurement by glucometer (mass/volume)2020-06-13 16:09:00* Test Item Value Reference Range Interpretation Comments Bedside Glucose (test code = 77981-7) 354 70-120 Meter ID: [id number] Dallas Medical CenterCapillary blood glucose measurement by glucometer (mass/volume)2020-06-13 16:09:00* Test Item Value Reference Range Interpretation Comments Bedside Glucose (test code = 93142-0) 354 70-120 Meter ID: [id number] [facility] Medical CenterCapillary blood glucose measurement by glucometer (mass/volume)2020-06-13 16:09:00* Test Item Value Reference Range Interpretation Comments Bedside Glucose (test code = 85995-8) 354 70-120 Meter ID: [id number] [facility] Medical CenterFluoroscopic procedure less than one hour lxcjdhkp9238-32-81 15:20:00* Test Item Value Reference Range Interpretation Comments Venous Blood pH (test code = Venous Blood pH) 7.376 7.35-7.3 8 [facility] CenterFluoroscopic procedure less than one hour usickico8019-43-55 15:20:00* Test Item Value Reference Range Interpretation Comments Venous Blood Partial Pressure CO2 (test code = Venous Blood Partial Pressure CO2) 43.3 44-48 [facility] CenterFluoroscopic procedure less than one hour dyxmahri0240-88-58 15:20:00* Test Item Value Reference Range Interpretation Comments Venous Blood Partial Pressure O2 (test code = Venous B lood Partial Pressure O2) 49 40-41 [facility] CenterFluoroscopic procedure less than one hour xulwjbfe7566-64-86 15:20:00* Test Item Value Reference Range Interpretation Comments Venous Blood HCO3 (test code = Venous Blood HCO3) 25.4 21-2 2 [facility] CenterFluoroscopic procedure less than one hour axptntsp4085-89-39 15:20:00* Test Item Value Reference Range Interpretation Comments Venous Blood Total Carbon Dioxide (test code = Venous Blood Total Carbon Dioxide) 27 [facility] CenterFluoroscopic procedure less than one hour dtwdajat8915-84-37 15:20:00* Test Item Value Reference Range Interpretation Comments Venous Blood Base Excess (test code = Venous Blood Base Excess) 0 [facility] CenterFluoroscopic procedure less than one hour txdskzeq2072-47-64 15:20:00* Test Item Value Reference Range Interpretation Comments Venous Blood Oxygen Saturation (test code = Venous Blood Oxy gen Saturation) 83 [facility] CenterFluoroscopic procedure less than one hour yzknylot4492-77-88 15:20:00* Test Item Value Reference Range Interpretation Comments FiO2 (test code = FiO2) 21 [facility] CenterFluoroscopic procedure less than one hour ljtymcmn2915-16-64 15:20:00* Test Item Value Reference Range Interpretation Comments Venous Blood pH (test code = Venous Blood pH) 7.376 7.35-7.3 8 [facility] CenterFluoroscopic procedure less than one hour jljjfcqb0890-95-38 15:20:00* Test Item Value Reference Range Interpretation Comments Venous Blood Partial Pressure CO2 (test code = Venous Blood Partial Pressure CO2) 43.3 44-48 [facility] CenterFluoroscopic procedure less than one hour jfjlvvbr8663-05-61 15:20:00* Test Item Value Reference Range Interpretation Comments Venous Blood Partial Pressure O2 (test code = Venous B lood Partial Pressure O2) 49 40-41 [facility] CenterFluoroscopic procedure less than one hour kojnexez9201-15-16 15:20:00* Test Item Value Reference Range Interpretation Comments Venous Blood HCO3 (test code = Venous Blood HCO3) 25.4 21-2 2 [facility] CenterFluoroscopic procedure less than one hour loouptde2963-00-94 15:20:00* Test Item Value Reference Range Interpretation Comments Venous Blood Total Carbon Dioxide (test code = Venous Blood Total Carbon Dioxide) 27 [facility] CenterFluoroscopic procedure less than one hour jzzuywcu0267-08-92 15:20:00* Test Item Value Reference Range Interpretation Comments Venous Blood Base Excess (test code = Venous Blood Base Excess) 0 [facility] CenterFluoroscopic procedure less than one hour pjadejhq4965-58-48 15:20:00* Test Item Value Reference Range Interpretation Comments Venous Blood Oxygen Saturation (test code = Venous Blood Oxy gen Saturation) 83 [facility] CenterFluoroscopic procedure less than one hour fvkkfzgq7142-22-76 15:20:00* Test Item Value Reference Range Interpretation Comments FiO2 (test code = FiO2) 21 [facility] CenterFluoroscopic procedure less than one hour obprmfmd3316-41-18 15:20:00* Test Item Value Reference Range Interpretation Comments Venous Blood pH (test code = Venous Blood pH) 7.376 7.35-7.3 8 [facility] CenterFluoroscopic procedure less than one hour adulrjpy8731-07-06 15:20:00* Test Item Value Reference Range Interpretation Comments Venous Blood Partial Pressure CO2 (test code = Venous Blood Partial Pressure CO2) 43.3 44-48 [facility] CenterFluoroscopic procedure less than one hour immzvavi2954-22-07 15:20:00* Test Item Value Reference Range Interpretation Comments Venous Blood Partial Pressure O2 (test code = Venous B lood Partial Pressure O2) 49 40-41 [facility] CenterFluoroscopic procedure less than one hour fekiitcz8231-86-49 15:20:00* Test Item Value Reference Range Interpretation Comments Venous Blood HCO3 (test code = Venous Blood HCO3) 25.4 21-2 2 [facility] CenterFluoroscopic procedure less than one hour uawmcinf6007-88-22 15:20:00* Test Item Value Reference Range Interpretation Comments Venous Blood Total Carbon Dioxide (test code = Venous Blood Total Carbon Dioxide) 27 [facility] CenterFluoroscopic procedure less than one hour eiydrwqc6887-64-41 15:20:00* Test Item Value Reference Range Interpretation Comments Venous Blood Base Excess (test code = Venous Blood Base Excess) 0 [facility] CenterFluoroscopic procedure less than one hour wvujxnkd6013-02-39 15:20:00* Test Item Value Reference Range Interpretation Comments Venous Blood Oxygen Saturation (test code = Venous Blood Oxy gen Saturation) 83 [facility] CenterFluoroscopic procedure less than one hour ijrwfqaf8897-76-51 15:20:00* Test Item Value Reference Range Interpretation Comments FiO2 (test code = FiO2) 21 [facility] YK8725-31-45 15:19:00 [facility] [address] [address] Patient Name: YOLETTE URIBE MR #: [id number] : 1975 Age/Sex: 44/F Req #: [id number] Adm Physician: Ordered by: CHEIKH PIKE MD Report #: [id number] Location: ER Room/Bed: Procedure: CT/CT BRAIN WO [...] CHEIKH PIKE MD CHEST SINGLE (PORTABLE)2020-06-13 15:17:[address] [address] Patient Name: YOLETTE URIBE MR #: [id number] : 1975 Age/Sex: 44/F Req #: [id number] Adm Physician: Ordered by: CHEIKH PIKE MD Report #: [id number] Location: ER Room/Bed: Procedure: [id number] DX/CHEST SINGLE (PORTABLE) Exam Date: 06/13/20 Exam Time: 1430 REPORT STATUS: Signed TECHNIQUE: Fro ntal view of the chest. INDICATION: OFF-BALANCE [id number] COMPARISON: 12/31/2019 DISCUSSION: Limited evaluation due to [...] on 06/13/201517 COPY TO: CHEIKH PIKE MD Urine color nzossglxnjjtz7404-61-85 14:48:00* Test Item Value Reference Range Interpretation Comments Urine Color (test code = 5778-6) YELLOW YELLOW [facility] CenterUrine bpxuisz8660-80-58 14:48:00* Test Item Value Reference Range Interpretation Comments Urine Clarity (test code = 76385-7) CLEAR CLEAR [facility] gravity of Urine by Test strip 2020-06-13 14:48:00* Test Item Value Reference Range Interpretation Comments Urine Specific [place] (test code = 5811-5) 1.010 1.010-1.02 5 [facility] CenterUrine pH measurement by automated test cubic1645-16-14 14:48:00* Test Item Value Reference Range Interpretation Comments Urine pH (test code = 07673-9) 6 5-7 [facility] CenterUrine leukocyte esterase detection by decgzarm3686-30-30 14:48:00* Test Item Value Reference Range Interpretation Comments Urine Leukocyte Esterase (test code = 5799-2) NEGATIVE NEGATIVE [facility] CenterUrine nitrite lxsstpeby2715-65-60 14:48:00* Test Item Value Reference Range Interpretation Comments Urine Nitrite (test code = 90468-3) NEGATIVE NEGATIVE [facility] CenterUrine protein measurement by test strip (mass/volume)2020-06-13 14:48:00* Test Item Value Reference Range Interpretation Comments Urine Protein (test code = 5804-0) NEGATIVE NEGATIVE [facility] CenterUrine glucose jdbstcqih6139-57-69 14:48:00* Test Item Value Reference Range Interpretation Comments Urine Glucose (UA) (test code = 2349-9) 3+ NEGATIVE [facility] CenterUrine ketones detection by automated test eepsb3527-72-84 14:48:00* Test Item Value Reference Range Interpretation Comments Urine Ketones (test code = 73102-9) NEGATIVE NEGATIVE [facility] CenterUrine opiates screening maxz6449-38-82 14:48:00* Test Item Value Reference Range Interpretation Comments Urine Opiates Screen (test code = 28862-6) NEGATIVE NEGATIVE ALL TESTS PERFORMED MANUALLY ON [employer] TOX/SEE TESTMethodist Dallas Medical CenterBarbiturates screen, avdui3766-08-88 14:48:00* Test Item Value Reference Range Interpretation Comments Urine Barbiturates Screen (test code = 713288495) NEGATIVE NEGA TIVE [facility] CenterUrine phencyclidine detection by screening djaeem0998-95-00 14:48:00* Test Item Value Reference Range Interpretation Comments Urine Phencyclidine Screen (test code = 78866-7) NEGATIVE NEGAT ЕЛЕНА [facility] CenterUrine amphetamines detection by screen method > 1000 ng/fE6760-75-75 14:48:00* Test Item Value Reference Range Interpretation Comments Urine Amphetamines Screen (test code = 11546-4) NEGATIVE NEGATI VE [facility] CenterFluoroscopic procedure less than one hour xnxuxodc5107-37-63 14:48:00* Test Item Value Reference Range Interpretation Comments Urine Methamphetamines Screen (test code = Urine Metha mphetamines Screen) NEGATIVE NEGATIVE [facility] CenterUrine benzodiazepines detection by screening wfmsha5363-75-78 14:48:00* Test Item Value Reference Range Interpretation Comments Urine Benzodiazepines Screen (test code = 18208-7) NEGATIVE NEG ATIVE [facility] CenterUrine cocaine measurement (mass/volume) 2020-06-13 14:48:00* Test Item Value Reference Range Interpretation Comments Urine Cocaine Screen (test code = 3398-5) NEGATIVE NEGATIVE [facility] CenterUrine cannabinoids detection by screening wdyxxr8096-56-89 14:48:00* Test Item Value Reference Range Interpretation Comments Urine Cannabinoids Screen (test code = 19340-6) NEGATIVE NEGATI VE THESE RESULTS ARE FOR MEDICAL TREATMENT ONLYTHIS REPORT CONTAINS UNCONFIR MED SCREENING RESULTS*POSITIVE RESULTS WILL BE CONFIRMED BY REFERENCE LAB UPON R EQUEST CUT-OFFDRUG CLASS CONCENTRATION ng/mLAmphetamines 1000Methamphetamines 1000Cocaine 300Opiate 300Phencyc lidine 25Cannabinoid 50Barbiturates 300Benzodiazepine 300Methadone 300[facility]landUrine methadone hmtnto0559-56-76 14:48:00* Test Item Value Reference Range Interpretation Comments Urine Methadone Screen (test code = 83499-3) NEGATIVE NEGATIVE THESE RESULTS ARE FOR MEDICAL TREATMENT ONLYTHIS REPORT CONTAINS UNCONFIR MED SCREENING RESULTS*POSITIVE RESULTS WILL BE CONFIRMED BY REFERENCE LAB UPON R EQUEST CUT-OFFDRUG CLASS CONCENTRATION ng/mLAmphetamines 1000Methamphetamines 1000Cocaine Metabolite 300Opiate 300Phencyc lidine 25Cannabinoid 50Barbiturates 300Benzodiazepine 300Methadone 300[facility] CenterUrine urobilinogen measurement by test strip (mass/volume)2020-06-13 14:48:00* Test Item Value Reference Range Interpretation Comments Urine Urobilinogen (test code = 55917-3) 0.2 0.2-1 [facility] CenterUrine total bilirubin measurement (mass/volume)2020-06-13 14:48:00* Test Item Value Reference Range Interpretation Comments Urine Bilirubin (test code = 1978-6) NEGATIVE NEGATIVE [facility] CenterU[facility] erythrocytes ubuewmmdd4621-72-75 14:48:00* Test Item Value Reference Range Interpretation Comments Urine Blood (test code = 64156-0) NEGATIVE NEGATIVE [facility] CenterAutomated urine sediment leukocyte count by microscopy (number/high power field)2020-06-13 14:48:00* Test Item Value Reference Range Interpretation Comments Urine WBC (test code = 5821-4) NONE 0-5 [facility] CenterErythrocytes detection in urine sediment by light esmakomgii0856-53-22 14:48:00* Test Item Value Reference Range Interpretation Comments Urine RBC (test code = 96175-3) NONE 0-5 [facility] CenterBacteria detection in urine sediment by light jytfyaguvw7231-52-74 14:48:00* Test Item Value Reference Range Interpretation Comments Urine Bacteria (test code = 18109-1) RARE NONE [facility] CenterEpithelial cells detection in urine sediment by light dgoethdqwm9454-94-69 14:48:00* Test Item Value Reference Range Interpretation Comments Urine Epithelial Cells (test code = 78783-2) NONE NONE [facility] CenterUrine color mpafknbqktpdx6728-23-50 14:48:00* Test Item Value Reference Range Interpretation Comments Urine Color (test code = 5778-6) YELLOW YELLOW [facility] CenterUrine lywkscf2188-90-73 14:48:00* Test Item Value Reference Range Interpretation Comments Urine Clarity (test code = 20895-1) CLEAR CLEAR [facility] gravity of Urine by Test strip 2020-06-13 14:48:00* Test Item Value Reference Range Interpretation Comments Urine Specific [place] (test code = 5811-5) 1.010 1.010-1.02 5 [facility] CenterUrine pH measurement by automated test sdyne6463-02-26 14:48:00* Test Item Value Reference Range Interpretation Comments Urine pH (test code = 53137-7) 6 5-7 [facility] CenterUrine leukocyte esterase detection by pefrenfj7200-11-49 14:48:00* Test Item Value Reference Range Interpretation Comments Urine Leukocyte Esterase (test code = 5799-2) NEGATIVE NEGATIVE [facility] CenterUrine nitrite etzmvvmuf4692-82-44 14:48:00* Test Item Value Reference Range Interpretation Comments Urine Nitrite (test code = 46807-6) NEGATIVE NEGATIVE [facility] CenterUrine protein measurement by test strip (mass/volume)2020-06-13 14:48:00* Test Item Value Reference Range Interpretation Comments Urine Protein (test code = 5804-0) NEGATIVE NEGATIVE [facility] CenterUrine glucose vfprsmwwn8281-39-34 14:48:00* Test Item Value Reference Range Interpretation Comments Urine Glucose (UA) (test code = 2349-9) 3+ NEGATIVE [facility] CenterUrine ketones detection by automated test kbocq9549-36-92 14:48:00* Test Item Value Reference Range Interpretation Comments Urine Ketones (test code = 41120-6) NEGATIVE NEGATIVE [facility] CenterUrine opiates screening ocwu1673-04-98 14:48:00* Test Item Value Reference Range Interpretation Comments Urine Opiates Screen (test code = 74847-4) NEGATIVE NEGATIVE ALL TESTS PERFORMED MANUALLY ON BIORAD TOX/SEE TESTMethod[facility] CenterBarbiturates screen, yjiii0252-24-82 14:48:00* Test Item Value Reference Range Interpretation Comments Urine Barbiturates Screen (test code = 807477735) NEGATIVE NEGA TIVE [facility] CenterUrine phencyclidine detection by screening ungybw2386-92-45 14:48:00* Test Item Value Reference Range Interpretation Comments Urine Phencyclidine Screen (test code = 44285-8) NEGATIVE NEGAT ЕЛЕНА [facility] CenterUrine amphetamines detection by screen method > 1000 ng/mM9057-40-19 14:48:00* Test Item Value Reference Range Interpretation Comments Urine Amphetamines Screen (test code = 46368-0) NEGATIVE NEGATI VE [facility] CenterFluoroscopic procedure less than one hour dirglxic9062-80-83 14:48:00* Test Item Value Reference Range Interpretation Comments Urine Methamphetamines Screen (test code = Urine Metha mphetamines Screen) NEGATIVE NEGATIVE [facility] CenterUrine benzodiazepines detection by screening paddgj6993-16-09 14:48:00* Test Item Value Reference Range Interpretation Comments Urine Benzodiazepines Screen (test code = 83282-5) NEGATIVE NEG ATIVE [facility] CenterUrine cocaine measurement (mass/volume) 2020-06-13 14:48:00* Test Item Value Reference Range Interpretation Comments Urine Cocaine Screen (test code = 3398-5) NEGATIVE NEGATIVE [facility] CenterUrine cannabinoids detection by screening svssem7713-01-73 14:48:00* Test Item Value Reference Range Interpretation Comments Urine Cannabinoids Screen (test code = 66407-0) NEGATIVE NEGATI VE THESE RESULTS ARE FOR MEDICAL TREATMENT ONLYTHIS REPORT CONTAINS UNCONFIR MED SCREENING RESULTS*POSITIVE RESULTS WILL BE CONFIRMED BY REFERENCE LAB UPON R EQUEST CUT-OFFDRUG CLASS CONCENTRATION ng/mLAmphetamines 1000Methamphetamines 1000Cocaine 300Opiate 300Phencyc lidine 25Cannabinoid 50Barbiturates 300Benzodiazepine 300Methadone 300[facility] CenterUrine methadone yrduus6724-63-68 14:48:00* Test Item Value Reference Range Interpretation Comments Urine Methadone Screen (test code = 38401-5) NEGATIVE NEGATIVE THESE RESULTS ARE FOR MEDICAL TREATMENT ONLYTHIS REPORT CONTAINS UNCONFIR MED SCREENING RESULTS*POSITIVE RESULTS WILL BE CONFIRMED BY REFERENCE LAB UPON R EQUEST CUT-OFFDRUG CLASS CONCENTRATION ng/mLAmphetamines 1000Methamphetamines 1000Cocaine Metabolite 300Opiate 300Phencyc lidine 25Cannabinoid 50Barbiturates 300Benzodiazepine 300Methadone 300[facility] CenterUrine urobilinogen measurement by test strip (mass/volume)2020-06-13 14:48:00* Test Item Value Reference Range Interpretation Comments Urine Urobilinogen (test code = 23094-4) 0.2 0.2-1 [facility] CenterUrine total bilirubin measurement (mass/volume)2020-06-13 14:48:00* Test Item Value Reference Range Interpretation Comments Urine Bilirubin (test code = 1978-6) NEGATIVE NEGATIVE [facility] CenterUrine erythrocytes acexyeqbu0762-09-94 14:48:00* Test Item Value Reference Range Interpretation Comments Urine Blood (test code = 58233-7) NEGATIVE NEGATIVE [facility] CenterAutomated urine sediment leukocyte count by microscopy (number/high power field)2020-06-13 14:48:00* Test Item Value Reference Range Interpretation Comments Urine WBC (test code = 5821-4) NONE 0-5 [facility] CenterErythrocytes detection in urine sediment by light zlpafixoqv1442-27-71 14:48:00* Test Item Value Reference Range Interpretation Comments Urine RBC (test code = 94527-6) NONE 0-5 [facility] CenterBacteria detection in urine sediment by light pjomozngmy3524-21-90 14:48:00* Test Item Value Reference Range Interpretation Comments Urine Bacteria (test code = 22590-4) RARE NONE [facility] CenterEpithelial cells detection in urine sediment by light hwsiontzjm1375-35-22 14:48:00* Test Item Value Reference Range Interpretation Comments Urine Epithelial Cells (test code = 31227-8) NONE NONE [facility] CenterUrine color ggibwenslllot1142-42-07 14:48:00* Test Item Value Reference Range Interpretation Comments Urine Color (test code = 5778-6) YELLOW YELLOW [facility] CenterUrine lhwntgi3867-34-28 14:48:00* Test Item Value Reference Range Interpretation Comments Urine Clarity (test code = 83940-7) CLEAR CLEAR [facility]andpecific gravity of Urine by Test strip 2020-06-13 14:48:00* Test Item Value Reference Range Interpretation Comments Urine Specific [place] (test code = 5811-5) 1.010 1.010-1.02 5 [facility] CenterUrine pH measurement by automated test zbwlm2440-91-09 14:48:00* Test Item Value Reference Range Interpretation Comments Urine pH (test code = 68010-9) 6 5-7 [facility] CenterUrine leukocyte esterase detection by amvjztqu5138-01-28 14:48:00* Test Item Value Reference Range Interpretation Comments Urine Leukocyte Esterase (test code = 5799-2) NEGATIVE NEGATIVE [facility] CenterUrine nitrite tttchldpi3491-18-52 14:48:00* Test Item Value Reference Range Interpretation Comments Urine Nitrite (test code = 89291-9) NEGATIVE NEGATIVE [facility] CenterUrine protein measurement by test strip (mass/volume)2020-06-13 14:48:00* Test Item Value Reference Range Interpretation Comments Urine Protein (test code = 5804-0) NEGATIVE NEGATIVE [facility] CenterUrine glucose xxumkglgg7765-91-72 14:48:00* Test Item Value Reference Range Interpretation Comments Urine Glucose (UA) (test code = 2349-9) 3+ NEGATIVE [facility] CenterUrine ketones detection by automated test yafgs1030-33-84 14:48:00* Test Item Value Reference Range Interpretation Comments Urine Ketones (test code = 44401-4) NEGATIVE NEGATIVE [facility] CenterUrine opiates screening ltbu5563-30-93 14:48:00* Test Item Value Reference Range Interpretation Comments Urine Opiates Screen (test code = 18558-1) NEGATIVE NEGATIVE ALL TESTS PERFORMED MANUALLY ON Avuxi TOX/SEE TESTMethod[facility] CenterBarbiturates screen, tfvgq6158-14-48 14:48:00* Test Item Value Reference Range Interpretation Comments Urine Barbiturates Screen (test code = 284369833) NEGATIVE NEGA TIVE [facility] CenterUrine phencyclidine detection by screening atjags2841-51-44 14:48:00* Test Item Value Reference Range Interpretation Comments Urine Phencyclidine Screen (test code = 70068-3) NEGATIVE NEGAT ЕЛЕНА [facility] CenterUrine amphetamines detection by screen method > 1000 ng/nG4336-47-97 14:48:00* Test Item Value Reference Range Interpretation Comments Urine Amphetamines Screen (test code = 79155-9) NEGATIVE NEGATI VE [facility] CenterFluoroscopic procedure less than one hour qirmfvtm2011-60-05 14:48:00* Test Item Value Reference Range Interpretation Comments Urine Methamphetamines Screen (test code = Urine Metha mphetamines Screen) NEGATIVE NEGATIVE [facility] CenterUrine benzodiazepines detection by screening znywoj0992-22-93 14:48:00* Test Item Value Reference Range Interpretation Comments Urine Benzodiazepines Screen (test code = 59272-8) NEGATIVE NEG ATIVE [facility] CenterUrine cocaine measurement (mass/volume) 2020-06-13 14:48:00* Test Item Value Reference Range Interpretation Comments Urine Cocaine Screen (test code = 3398-5) NEGATIVE NEGATIVE [facility] CenterUrine cannabinoids detection by screening rcpbje5163-42-95 14:48:00* Test Item Value Reference Range Interpretation Comments Urine Cannabinoids Screen (test code = 03306-6) NEGATIVE NEGATI VE THESE RESULTS ARE FOR MEDICAL TREATMENT ONLYTHIS REPORT CONTAINS UNCONFIR MED SCREENING RESULTS*POSITIVE RESULTS WILL BE CONFIRMED BY REFERENCE LAB UPON R EQUEST CUT-OFFDRUG CLASS CONCENTRATION ng/mLAmphetamines 1000Methamphetamines 1000Cocaine 300Opiate 300Phencyc lidine 25Cannabinoid 50Barbiturates 300Benzodiazepine 300Methadone 300[facility] CenterUrine methadone gxfdxv7644-36-29 14:48:00* Test Item Value Reference Range Interpretation Comments Urine Methadone Screen (test code = 19518-6) NEGATIVE NEGATIVE THESE RESULTS ARE FOR MEDICAL TREATMENT ONLYTHIS REPORT CONTAINS UNCONFIR MED SCREENING RESULTS*POSITIVE RESULTS WILL BE CONFIRMED BY REFERENCE LAB UPON R EQUEST CUT-OFFDRUG CLASS CONCENTRATION ng/mLAmphetamines 1000Methamphetamines 1000Cocaine Metabolite 300Opiate 300Phencyc lidine 25Cannabinoid 50Barbiturates 300Benzodiazepine 300Methadone 300[facility]landUrine urobilinogen measurement by test strip (mass/volume)2020-06-13 14:48:00* Test Item Value Reference Range Interpretation Comments Urine Urobilinogen (test code = 64421-2) 0.2 0.2-1 [facility] CenterUrine total bilirubin measurement (mass/volume)2020-06-13 14:48:00* Test Item Value Reference Range Interpretation Comments Urine Bilirubin (test code = 1978-6) NEGATIVE NEGATIVE [facility] CenterUrine erythrocytes aqexaelse4900-12-82 14:48:00* Test Item Value Reference Range Interpretation Comments Urine Blood (test code = 27333-6) NEGATIVE NEGATIVE [facility] CenterAutomated urine sediment leukocyte count by microscopy (number/high power field)2020-06-13 14:48:00* Test Item Value Reference Range Interpretation Comments Urine WBC (test code = 5821-4) NONE 0-5 [facility] CenterErythrocytes detection in urine sediment by light qpfafvtqwf8267-39-58 14:48:00* Test Item Value Reference Range Interpretation Comments Urine RBC (test code = 62282-0) NONE 0-5 [facility] CenterBacteria detection in urine sediment by light qgggvxisff4869-05-86 14:48:00* Test Item Value Reference Range Interpretation Comments Urine Bacteria (test code = 96127-3) RARE NONE [facility] CenterEpithelial cells detection in urine sediment by light eaxqlybpjs6280-49-74 14:48:00* Test Item Value Reference Range Interpretation Comments Urine Epithelial Cells (test code = 76708-6) NONE NONE [facility] CenterBlood leukocytes automated count (number/volume)2020-06-13 14:30:00* Test Item Value Reference Range Interpretation Comments White Blood Count (test code = 6690-2) 7.90 4.8-10.8 [facility] CenterBlst[facility] erythrocytes automated count (number/volume)2020-06-13 14:30:00* Test Item Value Reference Range Interpretation Comments Red Blood Count (test code = 789-8) 4.92 3.6-5.1 [facility] hemoglobin measurement (moles/volume)2020-06-13 14:30:00* Test Item Value Reference Range Interpretation Comments Hemoglobin (test code = 10473-2) 14.0 12.0-16.0 [facility] CenterAutomated blood hematocrit (volume fraction)2020-06-13 14:30:00* Test Item Value Reference Range Interpretation Comments Hematocrit (test code = 4544-3) 41.1 34.2-44.1 [facility] CenterAutomated erythrocyte mean corpuscular uspbpz7833-19-91 14:30:00* Test Item Value Reference Range Interpretation Comments Mean Corpuscular Volume (test code = 787-2) 83.5 81-99 [facility] CenterAutomated erythrocyte mean corpuscular hemoglobin (mass per erythrocyte)2020-06-13 14:30:00* Test Item Value Reference Range Interpretation Comments Mean Corpuscular Hemoglobin (test code = 785-6) 28.5 28-32 [facility] CenterAutomated erythrocyte mean corpuscular hemoglobin concentration measurement (mass/volume)2020-06-13 14:30:00* Test Item Value Reference Range Interpretation Comments Mean Corpuscular Hemoglobin Concent (test code = 786-4) 34.1 31-35 [facility] CenterRD AwsGn-Ntk7889-36-01 14:30:00* Test Item Value Reference Range Interpretation Comments Red Cell Distribution Width (test code = 67940-7) 12.1 11.7 -14.4 [facility] (count/volume)2020-06-13 14:30:00* Test Item Value Reference Range Interpretation Comments Platelet Count (test code = 777-3) 302 140-360 [facility] segmented neutrophil count as percentage of total bgbigbmwfx5082-35-38 14:30:00* Test Item Value Reference Range Interpretation Comments Neutrophils (%) (Auto) (test code = 26671-9) 59.3 38.7-80.0 [facility] CenterAutomated blood lymphocyte count as percentage ot total rukffschaw0835-28-82 14:30:00* Test Item Value Reference Range Interpretation Comments Lymphocytes (%) (Auto) (test code = 736-9) 32.7 18.0-39.1 [facility] CenterAutomated blood monocyte count as percentage of total clwixhraga9291-72-35 14:30:00* Test Item Value Reference Range Interpretation Comments Monocytes (%) (Auto) (test code = 5905-5) 6.3 4.4-11.3 [facility] CenterAutomated blood eosinophil count as percentage of total abtpnjvqzo3026-84-15 14:30:00* Test Item Value Reference Range Interpretation Comments Eosinophils (%) (Auto) (test code = 713-8) 0.9 0.0-6.0 [facility] CenterAutomated blood basophil count as percentage of total lmkggptyha6543-09-35 14:30:00* Test Item Value Reference Range Interpretation Comments Basophils (%) (Auto) (test code = 706-2) 0.5 0.0-1.0 [facility] CenterFluoroscopic procedure less than one hour vqumqsbh2317-38-29 14:30:00* Test Item Value Reference Range Interpretation Comments IM GRANULOCYTES % (test code = IM GRANULOCYTES %) 0.3 0.0- 1.0 [facility] CenterAutomated blood neutrophil count 2020-06-13 14:30:00* Test Item Value Reference Range Interpretation Comments Neutrophils # (Auto) (test code = 751-8) 4.7 2.1-6.9 [facility] CenterBlood lymphocytes count (number/volume) 2020-06-13 14:30:00* Test Item Value Reference Range Interpretation Comments Lymphocytes # (Auto) (test code = 54976-4) 2.6 1.0-3.2 [facility] CenterBlood monocytes automated count (number/volume)2020-06-13 14:30:00* Test Item Value Reference Range Interpretation Comments Monocytes # (Auto) (test code = 742-7) 0.5 0.2-0.8 [facility] CenterAutomated blood eosinophil count 2020-06-13 14:30:00* Test Item Value Reference Range Interpretation Comments Eosinophils # (Auto) (test code = 711-2) 0.1 0.0-0.4 [facility] CenterAutomated blood basophil count (count/volume)2020-06-13 14:30:00* Test Item Value Reference Range Interpretation Comments Basophils # (Auto) (test code = 704-7) 0.0 0.0-0.1 [facility] CenterFluoroscopic procedure less than one hour imcmrody2335-42-66 14:30:00* Test Item Value Reference Range Interpretation Comments Absolute Immature Granulocyte (auto (chiquita t code = Absolute Immature Granulocyte (auto) 0.02 0-0.1 [facility] CenterProthrombin time (PT) in platelet poor plasma by coagulation llhbi1487-36-51 14:30:00* Test Item Value Reference Range Interpretation Comments Prothrombin Time (test code = 5902-2) 12.0 11.9-14.5 [facility] CenterINR in Platelet poor plasma by Coagulation wyvzx1864-17-36 14:30:00* Test Item Value Reference Range Interpretation Comments Prothromb Time International Ratio (test code = 6301-6) 0.85 Oral Anticoagulant Therapy INR Values:1. Low Intensity Therapy 1.5 - 2.02 . Moderate Intensity Therapy 2.0 - 3.03. High Intensity Therapy(1) 2.5 - 3. 54. High Intensity Therapy(2) 3.0 - 4.05. Panic Value INR > 5.0 [facility] CenterActivated partial thromboplastin time (aPTT) in platelet poor plasma by coagulation stbix4558-23-33 14:30:00* Test Item Value Reference Range Interpretation Comments Activated Partial Thromboplast Time (test code = 53026-7) 29.7 23.8-35.5 [facility]ellanderum or plasma magnesium measurement (mass/volume)2020-06-13 14:30:00* Test Item Value Reference Range Interpretation Comments Magnesium Level (test code = 19618-4) 1.7 1.3-2.1 [facility]anderum or plasma total bilirubin measurement (mass/volume)2020-06-13 14:30:00* Test Item Value Reference Range Interpretation Comments Total Bilirubin (test code = 1975-2) 0.3 0.2-1.2 [facility] CenterFluoroscopic procedure less than one hour wplqeoat4596-51-77 14:30:00* Test Item Value Reference Range Interpretation Comments Aspartate Amino Transf (AST/SGOT) (test code = Aspartate Amino Transf (AST/SGOT)) 11 5-34 [facility]ellanderum or plasma alanine aminotransferase measurement (enzymatic activity/volume)2020-06-13 14:30:00* Test Item Value Reference Range Interpretation Comments Alanine Aminotransferase (ALT/SGPT) (test code = 1742-6) 14 0-55 [facility]ellanderum or plasma protein measurement (mass/volume)2020-06-13 14:30:00* Test Item Value Reference Range Interpretation Comments Total Protein (test code = 2885-2) 7.7 6.5-8.1 [facility]anderum or plasma albumin measurement (mass/volume)2020-06-13 14:30:00* Test Item Value Reference Range Interpretation Comments Albumin (test code = 1751-7) 4.7 3.5-5.0 [facility] CenterPlasma globulin measurement (mass/volume) 2020-06-13 14:30:00* Test Item Value Reference Range Interpretation Comments Globulin (test code = 51070-4) 3.0 2.3-3.5 [facility]anderum or plasma albumin/globulin mass ajtql4863-72-68 14:30:00* Test Item Value Reference Range Interpretation Comments Albumin/Globulin Ratio (test code = 1759-0) 1.6 0.8-2.0 [facility]ellanderum or plasma alkaline phosphatase measurement (enzymatic activity/volume)2020-06-13 14:30:00* Test Item Value Reference Range Interpretation Comments Alkaline Phosphatase (test code = 6768-6) 121 40-150 [facility]ellanderum or plasma creatine kinase measurement (enzymatic activity/volume)2020-06-13 14:30:00* Test Item Value Reference Range Interpretation Comments Creatine Kinase (test code = 2157-6) 34 29-168 [facility]ellanderum or plasma creatine kinase MB measurement (mass/volume)2020-06-13 14:30:00* Test Item Value Reference Range Interpretation Comments Creatine Kinase MB (test code = 41422-7) 1.20 0-5.0 [facility] CenterTroponin I measurement by highly sensitive enzyme geyvohaqjca3018-74-67 14:30:00* Test Item Value Reference Range Interpretation Comments Troponin I (test code = 57365-0) 0.004 0-0.300 [facility]anderum or plasma thyrotropin measurement by detection limit <= 0.005 miu/l (units/volume)2020-06-13 14:30:00* Test Item Value Reference Range Interpretation Comments Thyroid Stimulating Hormone (TSH) (test code = 28886-2) 1.139 0.350-4.940 [facility] CenterBlood leukocytes automated count (number/volume)2020-06-13 14:30:00* Test Item Value Reference Range Interpretation Comments White Blood Count (test code = 6690-2) 7.90 4.8-10.8 [facility] CenterBlst[facility] erythrocytes automated count (number/volume)2020-06-13 14:30:00* Test Item Value Reference Range Interpretation Comments Red Blood Count (test code = 789-8) 4.92 3.6-5.1 [facility] CenterBlood hemoglobin measurement (moles/volume)2020-06-13 14:30:00* Test Item Value Reference Range Interpretation Comments Hemoglobin (test code = 73134-5) 14.0 12.0-16.0 [facility] CenterAutomated blood hematocrit (volume fraction)2020-06-13 14:30:00* Test Item Value Reference Range Interpretation Comments Hematocrit (test code = 4544-3) 41.1 34.2-44.1 [facility] CenterAutomated erythrocyte mean corpuscular itgjbl9954-34-46 14:30:00* Test Item Value Reference Range Interpretation Comments Mean Corpuscular Volume (test code = 787-2) 83.5 81-99 [facility] CenterAutomated erythrocyte mean corpuscular hemoglobin (mass per erythrocyte)2020-06-13 14:30:00* Test Item Value Reference Range Interpretation Comments Mean Corpuscular Hemoglobin (test code = 785-6) 28.5 28-32 [facility] CenterAutomated erythrocyte mean corpuscular hemoglobin concentration measurement (mass/volume)2020-06-13 14:30:00* Test Item Value Reference Range Interpretation Comments Mean Corpuscular Hemoglobin Concent (test code = 786-4) 34.1 31-35 [facility] CenterRDW WubMd-Ofx8524-53-01 14:30:00* Test Item Value Reference Range Interpretation Comments Red Cell Distribution Width (test code = 33356-3) 12.1 11.7 -14.4 [facility] CenterAutomated blood platelet count (count/volume)2020-06-13 14:30:00* Test Item Value Reference Range Interpretation Comments Platelet Count (test code = 777-3) 302 140-360 [facility] CenterAutyad[facility] hospitaled blood segmented neutrophil count as percentage of total gkcrgpxbbk1980-17-98 14:30:00* Test Item Value Reference Range Interpretation Comments Neutrophils (%) (Auto) (test code = 05678-8) 59.3 38.7-80.0 [facility] CenterAutomated blood lymphocyte count as percentage ot total nwrdptspvx5706-41-37 14:30:00* Test Item Value Reference Range Interpretation Comments Lymphocytes (%) (Auto) (test code = 736-9) 32.7 18.0-39.1 [facility] CenterAutomated blood monocyte count as percentage of total ojbuekrusi0162-84-46 14:30:00* Test Item Value Reference Range Interpretation Comments Monocytes (%) (Auto) (test code = 5905-5) 6.3 4.4-11.3 [facility] CenterAutyadkin valley community hospitaled blood eosinophil count as percentage of total pezokvyqax3656-93-63 14:30:00* Test Item Value Reference Range Interpretation Comments Eosinophils (%) (Auto) (test code = 713-8) 0.9 0.0-6.0 [facility] CenterAutomated blood basophil count as percentage of total rdoqrququv6736-00-07 14:30:00* Test Item Value Reference Range Interpretation Comments Basophils (%) (Auto) (test code = 706-2) 0.5 0.0-1.0 [facility] CenterFluoroscopic procedure less than one hour ipbnddnq2777-65-57 14:30:00* Test Item Value Reference Range Interpretation Comments IM GRANULOCYTES % (test code = IM GRANULOCYTES %) 0.3 0.0- 1.0 [facility] CenterAutomated blood neutrophil count 2020-06-13 14:30:00* Test Item Value Reference Range Interpretation Comments Neutrophils # (Auto) (test code = 751-8) 4.7 2.1-6.9 [facility] CenterBlood lymphocytes count (number/volume) 2020-06-13 14:30:00* Test Item Value Reference Range Interpretation Comments Lymphocytes # (Auto) (test code = 07504-4) 2.6 1.0-3.2 [facility] CenterBlst[facility] monocytes automated count (number/volume)2020-06-13 14:30:00* Test Item Value Reference Range Interpretation Comments Monocytes # (Auto) (test code = 742-7) 0.5 0.2-0.8 [facility] CenterAutomated blood eosinophil count 2020-06-13 14:30:00* Test Item Value Reference Range Interpretation Comments Eosinophils # (Auto) (test code = 711-2) 0.1 0.0-0.4 [facility] CenterAutomated blood basophil count (count/volume)2020-06-13 14:30:00* Test Item Value Reference Range Interpretation Comments Basophils # (Auto) (test code = 704-7) 0.0 0.0-0.1 [facility] CenterFluoroscopic procedure less than one hour sizltraa7567-29-19 14:30:00* Test Item Value Reference Range Interpretation Comments Absolute Immature Granulocyte (auto (chiquita t code = Absolute Immature Granulocyte (auto) 0.02 0-0.1 [facility] CenterProthrombin time (PT) in platelet poor plasma by coagulation clwxz4711-77-46 14:30:00* Test Item Value Reference Range Interpretation Comments Prothrombin Time (test code = 5902-2) 12.0 11.9-14.5 [facility] CenterINR in Platelet poor plasma by Coagulation ncvvo8469-56-92 14:30:00* Test Item Value Reference Range Interpretation Comments Prothromb Time International Ratio (test code = 6301-6) 0.85 Oral Anticoagulant Therapy INR Values:1. Low Intensity Therapy 1.5 - 2.02 . Moderate Intensity Therapy 2.0 - 3.03. High Intensity Therapy(1) 2.5 - 3. 54. High Intensity Therapy(2) 3.0 - 4.05. Panic Value INR > 5.0 [facility] CenterActivated partial thromboplastin time (aPTT) in platelet poor plasma by coagulation znjkr6155-32-68 14:30:00* Test Item Value Reference Range Interpretation Comments Activated Partial Thromboplast Time (test code = 03416-3) 29.7 23.8-35.5 [facility] or plasma magnesium measurement (mass/volume)2020-06-13 14:30:00* Test Item Value Reference Range Interpretation Comments Magnesium Level (test code = 45481-5) 1.7 1.3-2.1 [facility]ellanderum or plasma total bilirubin measurement (mass/volume)2020-06-13 14:30:00* Test Item Value Reference Range Interpretation Comments Total Bilirubin (test code = 1975-2) 0.3 0.2-1.2 [facility] CenterFluoroscopic procedure less than one hour amsvsgqz4499-54-60 14:30:00* Test Item Value Reference Range Interpretation Comments Aspartate Amino Transf (AST/SGOT) (test code = Aspartate Amino Transf (AST/SGOT)) 11 5-34 [facility]ellanderum or plasma alanine aminotransferase measurement (enzymatic activity/volume)2020-06-13 14:30:00* Test Item Value Reference Range Interpretation Comments Alanine Aminotransferase (ALT/SGPT) (test code = 1742-6) 14 0-55 [facility]ellanderum or plasma protein measurement (mass/volume)2020-06-13 14:30:00* Test Item Value Reference Range Interpretation Comments Total Protein (test code = 2885-2) 7.7 6.5-8.1 [facility]anderum or plasma albumin measurement (mass/volume)2020-06-13 14:30:00* Test Item Value Reference Range Interpretation Comments Albumin (test code = 1751-7) 4.7 3.5-5.0 [facility] CenterPlasma globulin measurement (mass/volume) 2020-06-13 14:30:00* Test Item Value Reference Range Interpretation Comments Globulin (test code = 22714-5) 3.0 2.3-3.5 [facility]ellanderum or plasma albumin/globulin mass jgfyo1672-46-49 14:30:00* Test Item Value Reference Range Interpretation Comments Albumin/Globulin Ratio (test code = 1759-0) 1.6 0.8-2.0 [facility]ellanderum or plasma alkaline phosphatase measurement (enzymatic activity/volume)2020-06-13 14:30:00* Test Item Value Reference Range Interpretation Comments Alkaline Phosphatase (test code = 6768-6) 121 40-150 [facility]ellanderum or plasma creatine kinase measurement (enzymatic activity/volume)2020-06-13 14:30:00* Test Item Value Reference Range Interpretation Comments Creatine Kinase (test code = 2157-6) 34 29-168 [facility]ellanderum or plasma creatine kinase MB measurement (mass/volume)2020-06-13 14:30:00* Test Item Value Reference Range Interpretation Comments Creatine Kinase MB (test code = 37704-3) 1.20 0-5.0 [facility] CenterTroponin I measurement by highly sensitive enzyme groazkltveu6178-72-08 14:30:00* Test Item Value Reference Range Interpretation Comments Troponin I (test code = 53272-4) 0.004 0-0.300 [facility]ellanderum or plasma thyrotropin measurement by detection limit <= 0.005 miu/l (units/volume)2020-06-13 14:30:00* Test Item Value Reference Range Interpretation Comments Thyroid Stimulating Hormone (TSH) (test code = 25771-9) 1.139 0.350-4.940 [facility] CenterBlood blrrfch1161-43-25 14:30:00* Test Item Value Reference Range Interpretation Comments Blood Culture (test code = 44805826) NO GROWTH AFTER 5 DAYS, FINAL REPORT [facility] leukocytes automated count (number/volume)2020-06-13 14:30:00* Test Item Value Reference Range Interpretation Comments White Blood Count (test code = 6690-2) 7.90 4.8-10.8 [facility] erythrocytes automated count (number/volume)2020-06-13 14:30:00* Test Item Value Reference Range Interpretation Comments Red Blood Count (test code = 789-8) 4.92 3.6-5.1 [facility] hemoglobin measurement (moles/volume)2020-06-13 14:30:00* Test Item Value Reference Range Interpretation Comments Hemoglobin (test code = 68595-6) 14.0 12.0-16.0 [facility] CenterAutomated blood hematocrit (volume fraction)2020-06-13 14:30:00* Test Item Value Reference Range Interpretation Comments Hematocrit (test code = 4544-3) 41.1 34.2-44.1 [facility] CenterAutomated erythrocyte mean corpuscular qxmpvi6931-11-18 14:30:00* Test Item Value Reference Range Interpretation Comments Mean Corpuscular Volume (test code = 787-2) 83.5 81-99 [facility] CenterAutomated erythrocyte mean corpuscular hemoglobin (mass per erythrocyte)2020-06-13 14:30:00* Test Item Value Reference Range Interpretation Comments Mean Corpuscular Hemoglobin (test code = 785-6) 28.5 28-32 [facility] CenterAutomated erythrocyte mean corpuscular hemoglobin concentration measurement (mass/volume)2020-06-13 14:30:00* Test Item Value Reference Range Interpretation Comments Mean Corpuscular Hemoglobin Concent (test code = 786-4) 34.1 31-35 [facility] CenterRDW GygTt-Omp5886-34-01 14:30:00* Test Item Value Reference Range Interpretation Comments Red Cell Distribution Width (test code = 56570-7) 12.1 11.7 -14.4 [facility] CenterAutomated blood platelet count (count/volume)2020-06-13 14:30:00* Test Item Value Reference Range Interpretation Comments Platelet Count (test code = 777-3) 302 140-360 [facility] CenterAutomated blood segmented neutrophil count as percentage of total lcpsnbspvv6297-78-34 14:30:00* Test Item Value Reference Range Interpretation Comments Neutrophils (%) (Auto) (test code = 34400-8) 59.3 38.7-80.0 [facility] CenterAutomated blood lymphocyte count as percentage ot total vssywbfdxl7405-69-08 14:30:00* Test Item Value Reference Range Interpretation Comments Lymphocytes (%) (Auto) (test code = 736-9) 32.7 18.0-39.1 [facility] CenterAutomated blood monocyte count as percentage of total tbxhdtgtfb1307-03-83 14:30:00* Test Item Value Reference Range Interpretation Comments Monocytes (%) (Auto) (test code = 5905-5) 6.3 4.4-11.3 [facility] CenterAutomated blood eosinophil count as percentage of total mbjyxvnsvd5107-07-77 14:30:00* Test Item Value Reference Range Interpretation Comments Eosinophils (%) (Auto) (test code = 713-8) 0.9 0.0-6.0 [facility] CenterAutomated blood basophil count as percentage of total nbrpgurbzl1590-42-21 14:30:00* Test Item Value Reference Range Interpretation Comments Basophils (%) (Auto) (test code = 706-2) 0.5 0.0-1.0 [facility] CenterFluoroscopic procedure less than one hour cvuhcfmd8014-19-02 14:30:00* Test Item Value Reference Range Interpretation Comments IM GRANULOCYTES % (test code = IM GRANULOCYTES %) 0.3 0.0- 1.0 [facility] CenterAutomated blood neutrophil count 2020-06-13 14:30:00* Test Item Value Reference Range Interpretation Comments Neutrophils # (Auto) (test code = 751-8) 4.7 2.1-6.9 [facility] CenterBlood lymphocytes count (number/volume) 2020-06-13 14:30:00* Test Item Value Reference Range Interpretation Comments Lymphocytes # (Auto) (test code = 58153-6) 2.6 1.0-3.2 [facility] CenterBlood monocytes automated count (number/volume)2020-06-13 14:30:00* Test Item Value Reference Range Interpretation Comments Monocytes # (Auto) (test code = 742-7) 0.5 0.2-0.8 [facility] CenterAutomated blood eosinophil count 2020-06-13 14:30:00* Test Item Value Reference Range Interpretation Comments Eosinophils # (Auto) (test code = 711-2) 0.1 0.0-0.4 [facility] CenterAutomated blood basophil count (count/volume)2020-06-13 14:30:00* Test Item Value Reference Range Interpretation Comments Basophils # (Auto) (test code = 704-7) 0.0 0.0-0.1 [facility] CenterFluoroscopic procedure less than one hour buucboxi0147-02-44 14:30:00* Test Item Value Reference Range Interpretation Comments Absolute Immature Granulocyte (auto (chiquita t code = Absolute Immature Granulocyte (auto) 0.02 0-0.1 [facility] CenterProthrombin time (PT) in platelet poor plasma by coagulation fucct3755-98-31 14:30:00* Test Item Value Reference Range Interpretation Comments Prothrombin Time (test code = 5902-2) 12.0 11.9-14.5 [facility] CenterINR in Platelet poor plasma by Coagulation ulsta1323-40-39 14:30:00* Test Item Value Reference Range Interpretation Comments Prothromb Time International Ratio (test code = 6301-6) 0.85 Oral Anticoagulant Therapy INR Values:1. Low Intensity Therapy 1.5 - 2.02 . Moderate Intensity Therapy 2.0 - 3.03. High Intensity Therapy(1) 2.5 - 3. 54. High Intensity Therapy(2) 3.0 - 4.05. Panic Value INR > 5.0 [facility] CenterActivated partial thromboplastin time (aPTT) in platelet poor plasma by coagulation gelwl3821-01-28 14:30:00* Test Item Value Reference Range Interpretation Comments Activated Partial Thromboplast Time (test code = 05388-5) 29.7 23.8-35.5 [facility] or plasma magnesium measurement (mass/volume)2020-06-13 14:30:00* Test Item Value Reference Range Interpretation Comments Magnesium Level (test code = 44211-5) 1.7 1.3-2.1 [facility] or plasma total bilirubin measurement (mass/volume)2020-06-13 14:30:00* Test Item Value Reference Range Interpretation Comments Total Bilirubin (test code = 1975-2) 0.3 0.2-1.2 [facility] CenterFluoroscopic procedure less than one hour xqfszrot7924-90-87 14:30:00* Test Item Value Reference Range Interpretation Comments Aspartate Amino Transf (AST/SGOT) (test code = Aspartate Amino Transf (AST/SGOT)) 11 5-34 [facility]um or plasma alanine aminotransferase measurement (enzymatic activity/volume)2020-06-13 14:30:00* Test Item Value Reference Range Interpretation Comments Alanine Aminotransferase (ALT/SGPT) (test code = 1742-6) 14 0-55 [facility]um or plasma protein measurement (mass/volume)2020-06-13 14:30:00* Test Item Value Reference Range Interpretation Comments Total Protein (test code = 2885-2) 7.7 6.5-8.1 [facility] or plasma albumin measurement (mass/volume)2020-06-13 14:30:00* Test Item Value Reference Range Interpretation Comments Albumin (test code = 1751-7) 4.7 3.5-5.0 [facility] CenterPlasma globulin measurement (mass/volume) 2020-06-13 14:30:00* Test Item Value Reference Range Interpretation Comments Globulin (test code = 93991-7) 3.0 2.3-3.5 [facility] or plasma albumin/globulin mass nfqwb1903-58-32 14:30:00* Test Item Value Reference Range Interpretation Comments Albumin/Globulin Ratio (test code = 1759-0) 1.6 0.8-2.0 [facility] or plasma alkaline phosphatase measurement (enzymatic activity/volume)2020-06-13 14:30:00* Test Item Value Reference Range Interpretation Comments Alkaline Phosphatase (test code = 6768-6) 121 40-150 [facility]um or plasma creatine kinase measurement (enzymatic activity/volume)2020-06-13 14:30:00* Test Item Value Reference Range Interpretation Comments Creatine Kinase (test code = 2157-6) 34 29-168 [facility]anderum or plasma creatine kinase MB measurement (mass/volume)2020-06-13 14:30:00* Test Item Value Reference Range Interpretation Comments Creatine Kinase MB (test code = 38728-7) 1.20 0-5.0 [facility] CenterTroponin I measurement by highly sensitive enzyme qavkdgdnhtd5174-83-17 14:30:00* Test Item Value Reference Range Interpretation Comments Troponin I (test code = 99469-7) 0.004 0-0.300 [facility]um or plasma thyrotropin measurement by detection limit <= 0.005 miu/l (units/volume)2020-06-13 14:30:00* Test Item Value Reference Range Interpretation Comments Thyroid Stimulating Hormone (TSH) (test code = 17727-9) 1.139 0.350-4.940 [facility] CenterBlood vkuosyr2664-19-13 14:30:00* Test Item Value Reference Range Interpretation Comments Blood Culture (test code = 96887460) NO GROWTH AFTER 5 DAYS, FINAL REPORT [facility] CenterTROPONIN-Y3826-69-96 22:28:00* Test Item Value Reference Range Interpretation Comments TROPONIN-I (test code = TROPI) <0.015 ng/mL 0-0.045 N BASIC METABOLIC UPWUN7272-87-23 20:54:00* Test Item Value Reference Range Interpretation [...] 576 mg/dL 74-106 Re sults called to [id number] by V.LAB.KP1 02/21/204Critical results verified and read [...] CA) 9.6 mg/dL 8.5-10.1 N HEPATIC FUNCTION ESRIX8550-52-95 20:54:00* Test Item Value Reference Range Interpretation [...] reference range due to change in reagent. EXTZQRORG3898-50-49 20:54:00* Test Item Value Reference Range Interpretation Comments MAGNESIUM (test code = MAG) 1.9 mg/dL 1.8-2.4 N IQKRXAHF-C3962-66-11 20:54:00* Test Item Value Reference Range Interpretation Comments TROPONIN-I (test code = TROPI) <0.015 ng/mL 0-0.045 N - US ABDOMEN YUR2551-10-25 20:24:00 Name: YOLETTE URIBE [facility] : 1975 Age/S: 44 / F [address] [facility] Unit #: [id number] Loc: [place] [address] Phys: Jose Luis Zapata MD Acct: [id number] Dis Date: Status: REG ER PHONE #: [phone] Exam Date: 02/21/20202016 FAX #: [phone] Reason: epgiastric pain EXAMS: CPT CODE: [id number] US ABDOMEN LTD 29659 EXAM: Ultrasound of the abdomen, limited; INFORMATION: [...] Jose Luis Zapata MD Technologist: Paulo Gupta Trnscb Date/Time: 02/21/2020 (2023) Rebeca Orig Print D/T: S: 02/21/2020 (2026) Probe: PAGE 1 Signed Report PROTHROMBIN [id number] 20:16:00* Test Item Value Reference Range Interpretation [...] (2.5-3.5) IS PATIENT ON ANTICOAGULANTS? NTHROMBOPLASTIN TIME ABUGOPO5218-35-78 20:16:00* Test Item Value Reference Range Interpretation Comments THROMBOPLASTIN TIME PARTIAL (test code = PTT) 29.8 seconds 23.0-37. 0 N IS PATIENT ON ANTICOAGULANTS? OE-VTKLG9503-27-11 20:16:00* Test Item Value Reference Range Interpretation [...] - IS PATIENT ON ANTICOAGULANTS? NBASIC METABOLIC RFPBW5307-73-86 20:13:00* Test Item Value Reference Range Interpretation [...] code = CA) mg/dL 8.5-10.1 HEPATIC FUNCTION BULKZ2383-57-23 20:13:00* Test Item Value Reference Range Interpretation [...] TOTAL (test code = ALKP) IUnit/L 45-117 CTAFBLOUX4462-71-92 20:13:00* Test Item Value Reference Range Interpretation Comments MAGNESIUM (test code = MAG) mg/dL 1.8-2.4 DYWLQZPS-I1516-76-11 20:13:00* Test Item Value Reference Range Interpretation Comments TROPONIN-I (test code = TROPI) ng/mL 0-0.045 OGYTYQ2743-72-82 20:13:00* Test Item Value Reference Range Interpretation Comments LIPASE (test code = LIP) 229 U/L 73.0-393.0 N CBC W/O PYMX2051-85-74 20:06:00* Test Item Value Reference Range Interpretation [...] fL 6.7-11.0 H - XR CHEST 1 [id number] 19:47:00 [facility] FAX: Jose Luis Zapata MD Name: YOLETTE URIBE [facility] : 1975 Age/S: 44/F [address] [facility] Unit #: [id number] Loc: [place] [address] Phys: Jose Luis Zapata MD Acct: [id number] Dis Date: Status: REG ER PHONE #: [phone] Exam Date: 02/21/20201927 FAX #: [phone] Reason: CHEST PAIN EXAMS: CPT CODE: [id number] XR CHEST 1 V 28483 EXAM: Chest X-ray, 1 view; CLINICAL HISTORY: Chest pain; FINDINGS: The lungs are clear, no infiltrates, no edema; no effusions; no pneumothorax; normal cardiomediastinal silhouette. No change compared with a study from June 12, 2018. IMPRESSION: Normal chest x-ray. Location code: GW at 194 Reported and signed by: Jak Miller M.D. CC: Lamberto Shrestha III, MD; Jose Luis Zapata MD Technologist: LIDIA SILVA(Xavier) Trnscrd Date/Time/By: 02/21/2020 (1946) : By: EdwigeGRW Orig Print D/T: S: 02/21/2020 (1949) PAGE 1 Signed Report Bedside Tuoxknw5341-09-02 15:26:00* Test Item Value Reference Range Interpretation Comments Bedside Glucose (test code = 45831-2) 339 70-120 H Meter ID: [id number] [facility] 2020-01-11 14:28:00 [place] [address] Patient Name: YOLETTE URIBE MR #: [id number] : 1975 Age/Sex: 44/F Req #: [id number] Adm Physician: Ordered by: GAUTAM ISABEL MD Report #: [id number] Location: ER Room/Bed: Procedure: [id number] DX/ HAND 3+ VIEWS LEFT Exam Date: [...] 2:31 PM Dictated By: KIN OTERO MD 30 Transcribed By: JEMAL on 01/11/201430 COPY TO: GUATAM ISABEL MD Sodium Vxook7711-89-53 14:09:00* Test Item Value Reference Range Interpretation Comments Sodium Level (test code = 2951-2) 134 136-145 L [facility] CenterPotassium Cnmeo1392-42-19 14:09:00* Test Item Value Reference Range Interpretation Comments Potassium Level (test code = 2823-3) 3.6 3.5-5.1 [facility] CenterChloride Fodaj7312-24-12 14:09:00* Test Item Value Reference Range Interpretation Comments Chloride Level (test code = 2075-0) 97 98-107 L [facility] CenterCarbon Dioxide Uxkqx0477-08-79 14:09:00* Test Item Value Reference Range Interpretation Comments Carbon Dioxide Level (test code = 2028-9) 24 22-29 [facility] CenterAnion Iiw4296-35-96 14:09:00* Test Item Value Reference Range Interpretation Comments Anion Gap (test code = 45087-5) 16.6 8-16 H [facility] CenterBlood Urea Nwngtqed1466-88-23 14:09:00* Test Item Value Reference Range Interpretation Comments Blood Urea Nitrogen (test code = 3094-0) 11 7-26 [facility] CenterCreatinine2020-03-31 14:09:00* Test Item Value Reference Range Interpretation Comments Creatinine (test code = 2160-0) 0.85 0.57-1.11 [facility] CenterBUN/Creatinine Fzbhx4470-14-56 14:09:00* Test Item Value Reference Range Interpretation Comments BUN/Creatinine Ratio (test code = 3097-3) 13 6-25 [facility] CenterEstimat Glomerular Filtration Rate 2020-01-11 14:09:00* Test Item Value Reference Range Interpretation Comments Estimat Glomerular Filtration Rate (test code = 609555774) > 60 >60 Ranges were taken from the National Kidney Disease Education Program and the [facility] hospital[facility] Kidney Foundation literature.Reference ranges:60 or greater: Fakykz53-06 ( for 3 consecutive months): Chronic kidney disease 15 or less: Kidney failureMethodist Dallas Medical CenterGlucose Cziyp6777-44-80 14:09:00* Test Item Value Reference Range Interpretation Comments Glucose Level (test code = ZZX4887) 526 74-118 Results repeated and called to CHANDAN GUTIERREZ at 1408 on 01/11/20 by MARIEL MELISSA . Read back and verified.[facility] CenterCalcium Level 2020-01-11 14:09:00* Test Item Value Reference Range Interpretation Comments Calcium Level (test code = 11574-4) 9.6 8.4-10.2 [facility] CenterTotal Zquclwsaj3996-70-56 14:09:00* Test Item Value Reference Range Interpretation Comments Total Bilirubin (test code = 1975-2) 0.3 0.2-1.2 [facility] CenterAspartate Amino Transf (AST/SGOT) 2020-01-11 14:09:00* Test Item Value Reference Range Interpretation Comments Aspartate Amino Transf (AST/SGOT) (test code = Aspartate Amino Transf (AST/SGOT)) 19 5-34 [facility] CenterAlanine Aminotransferase (ALT/SGPT) 2020-01-11 14:09:00* Test Item Value Reference Range Interpretation Comments Alanine Aminotransferase (ALT/SGPT) (test code = 1742-6) 20 0-55 [facility] CenterTotal Zspcdvg2768-11-06 14:09:00* Test Item Value Reference Range Interpretation Comments Total Protein (test code = 2885-2) 7.1 6.5-8.1 [facility] CenterAlbumin2020-03-31 14:09:00* Test Item Value Reference Range Interpretation Comments Albumin (test code = 1751-7) 3.4 3.5-5.0 L [facility] CenterGlobulin2020-03-31 14:09:00* Test Item Value Reference Range Interpretation Comments Globulin (test code = 98080-8) 3.7 2.3-3.5 H [facility] CenterAlbumin/Globulin Wjpey2801-53-59 14:09:00 * Test Item Value Reference Range Interpretation Comments Albumin/Globulin Ratio (test code = 1759-0) 0.9 0.8-2.0 [facility] CenterAlkaline Irwavgknnob0892-33-40 14:09:00* Test Item Value Reference Range Interpretation Comments Alkaline Phosphatase (test code = 6768-6) 160 40-150 H [facility] CenterWhite Blood Vlmne9811-94-81 13:56:00* Test Item Value Reference Range Interpretation Comments White Blood Count (test code = 6690-2) 15.13 4.8-10.8 H [facility] CenterRed Blood Wmvma4002-78-88 13:56:00* Test Item Value Reference Range Interpretation Comments Red Blood Count (test code = 789-8) 5.05 3.6-5.1 [facility] CenterHemoglobin2020-03-31 13:56:00* Test Item Value Reference Range Interpretation Comments Hemoglobin (test code = 41835-1) 14.9 12.0-16.0 [facility] CenterHematocrit2020-03-31 13:56:00* Test Item Value Reference Range Interpretation Comments Hematocrit (test code = 4544-3) 42.7 34.2-44.1 [facility] CenterMean Corpuscular Xsfyyf3766-38-80 13:56:00* Test Item Value Reference Range Interpretation Comments Mean Corpuscular Volume (test code = 787-2) 84.6 81-99 [facility] CenterMean Corpuscular Bqllnifsxd9801-42-18 13:56:00* Test Item Value Reference Range Interpretation Comments Mean Corpuscular Hemoglobin (test code = 785-6) 29.5 28-32 [facility] CenterMean Corpuscular Hemoglobin Concent 2020-01-11 13:56:00* Test Item Value Reference Range Interpretation Comments Mean Corpuscular Hemoglobin Concent (test code = 786-4) 34.9 31-35 [facility] CenterRed Cell Distribution Baaty2424-99-90 13:56:00* Test Item Value Reference Range Interpretation Comments Red Cell Distribution Width (test code = 59504-1) 12.3 11.7 -14.4 [facility] [facility] Bbxgg7456-15-47 13:56:00* Test Item Value Reference Range Interpretation Comments Platelet Count (test code = 777-3) 309 140-360 [facility] CenterNeutrophils (%) (Auto)2020-01-11 13:56:00 * Test Item Value Reference Range Interpretation Comments Neutrophils (%) (Auto) (test code = 28423-0) 76.5 38.7-80.0 [facility] CenterLymphocytes (%) (Auto)2020-01-11 13:56:00 * Test Item Value Reference Range Interpretation Comments Lymphocytes (%) (Auto) (test code = 736-9) 16.9 18.0-39.1 L [facility] CenterMonocytes (%) (Auto)2020-01-11 13:56:00* Test Item Value Reference Range Interpretation Comments Monocytes (%) (Auto) (test code = 5905-5) 5.5 4.4-11.3 [facility] CenterEosinophils (%) (Auto)2020-01-11 13:56:00 * Test Item Value Reference Range Interpretation Comments Eosinophils (%) (Auto) (test code = 713-8) 0.3 0.0-6.0 [facility] CenterBasophils (%) (Auto)2020-01-11 13:56:00* Test Item Value Reference Range Interpretation Comments Basophils (%) (Auto) (test code = 706-2) 0.3 0.0-1.0 [facility] CenterIM GRANULOCYTES %2020-01-11 13:56:00* Test Item Value Reference Range Interpretation Comments IM GRANULOCYTES % (test code = IM GRANULOCYTES %) 0.5 0.0- 1.0 [facility] CenterNeutrophils # (Auto)2020-01-11 13:56:00* Test Item Value Reference Range Interpretation Comments Neutrophils # (Auto) (test code = 751-8) 11.6 2.1-6.9 H [facility] CenterLymphocytes # (Auto)2020-01-11 13:56:00* Test Item Value Reference Range Interpretation Comments Lymphocytes # (Auto) (test code = 35746-7) 2.6 1.0-3.2 [facility] CenterMonocytes # (Auto)2020-01-11 13:56:00* Test Item Value Reference Range Interpretation Comments Monocytes # (Auto) (test code = 742-7) 0.8 0.2-0.8 [facility] CenterEosinophils # (Auto)2020-01-11 13:56:00* Test Item Value Reference Range Interpretation Comments Eosinophils # (Auto) (test code = 711-2) 0.0 0.0-0.4 [facility] CenterBasophils # (Auto)2020-01-11 13:56:00* Test Item Value Reference Range Interpretation Comments Basophils # (Auto) (test code = 704-7) 0.1 0.0-0.1 [facility] CenterAbsolute Immature Granulocyte (auto 2020-01-11 13:56:00* Test Item Value Reference Range Interpretation Comments Absolute Immature Granulocyte (auto (chiquita t code = Absolute Immature Granulocyte (auto) 0.07 0-0.1 [facility] CenterCoronavirus (PCR)2020-01-04 06:12:00* Test Item Value Reference Range Interpretation Comments Coronavirus (PCR) (test code = Coronavirus (PCR)) NOT DETECTED NOTD ETECTED CORONAVIRUS EIXL-ZGP-8-RT-PCR (RESPIRATORY)This test has been validated but FDA' [...] and its performance characteristics determine d by [employer]. It has not been cleared or approved by the U.S. Food and Drug Administration. Results should be used in conjunction with clinical finding s, and should not form the sole basis for a diagnosis or treatment decision.Spec imen sent to [facility] and performed at [place], [address] [place] [address]. [id number] Dallas Medical CenterChlamydia pneumoniae DNA (PCR)2020-01-01 05:49:00* Test Item Value Reference Range Interpretation Comments Chlamydia pneumoniae DNA (PCR) (test code = Chlamydia pneumoniae DNA (PCR)) NOT DETECTED NOT DETECT Test performed at [address] [address]RESULTS HAVE BEEN CALLED TO THE PHYSICIANMethodist [facility] Medical CenterInfluenza Type A (RT-PCR)2020-01-01 05:49:00* Test Item Value Reference Range Interpretation Comments Influenza Type A (RT-PCR) (test code = 799623824) NOT DETECTED NOT DETECT [facility] CenterMycoplasma pneumoniae (PCR)2020-01-01 05:49:00* Test Item Value Reference Range Interpretation Comments Mycoplasma pneumoniae (PCR) (test code = Mycoplasma pn eumoniae (PCR)) NOT DETECTED NOT DETECT [facility] CenterInfluenza Type B (RT-PCR)2020-01-01 05:49:00* Test Item Value Reference Range Interpretation Comments Influenza Type B (RT-PCR) (test code = 156660551) NOT DETECTED NOT DETECT [facility] CenterRespiratory Syncytial Virus (PCR) 2020-01-01 05:49:00* Test Item Value Reference Range Interpretation Comments Respiratory Syncytial Virus (PCR) (test code = 742321656) NO T DETECTED NOT DETECT [facility] CenterBordetella pertussis DNA (PCR)2020-01-01 05:49:00* Test Item Value Reference Range Interpretation Comments Bordetella pertussis DNA (PCR) (test code = 746454228) NOT DETEC ROXANE NOT DETECT [facility] CenterParainfluenza Type 1 (PCR)2020-01-01 05:49:00* Test Item Value Reference Range Interpretation Comments Parainfluenza Type 1 (PCR) (test code = 250504899) NOT DETECTED NOT DETECT [facility] CenterParainfluenza Type 2 (PCR)2020-01-01 05:49:00* Test Item Value Reference Range Interpretation Comments Parainfluenza Type 2 (PCR) (test code = 436609537) NOT DETECTED NOT DETECT [facility] CenterParainfluenza Type 3 (PCR)2020-01-01 05:49:00* Test Item Value Reference Range Interpretation Comments Parainfluenza Type 3 (PCR) (test code = 173343449) NOT DETECTED NOT DETECT [facility] CenterParainfluenza Type 4 (PCR)2020-01-01 05:49:00* Test Item Value Reference Range Interpretation Comments Parainfluenza Type 4 (PCR) (test code = Parainfluenza Type 4 (PCR)) NOT DETECTED NOT DETECT [facility] CenterRhinovirus (PCR)2020-01-01 05:49:00* Test Item Value Reference Range Interpretation Comments Rhinovirus (PCR) (test code = 339814718) NOT DETECTED NOT DETECT [facility] CenterHuman Metapneumovirus (PCR)2020-01-01 05:49:00* Test Item Value Reference Range Interpretation Comments Human Metapneumovirus (PCR) (test code = 666431631) NOT DETECTED NO T DETECT [facility] CenterAdenovirus (PCR)2020-01-01 05:49:00* Test Item Value Reference Range Interpretation Comments Adenovirus (PCR) (test code = 891496809) NOT DETECTED NOT DETECT [facility] CenterCoronavirus Type HKU1 (PCR)2020-01-01 05:49:00* Test Item Value Reference Range Interpretation Comments Coronavirus Type HKU1 (PCR) (test code = Coronavirus T ype HKU1 (PCR)) NOT DETECTED NOT DETECT [facility] CenterCoronavirus Type NL63 (PCR)2020-01-01 05:49:00* Test Item Value Reference Range Interpretation Comments Coronavirus Type NL63 (PCR) (test code = Coronavirus T ype NL63 (PCR)) NOT DETECTED NOT DETECT [facility] CenterCoronavirus Type OC43 (PCR)2020-01-01 05:49:00* Test Item Value Reference Range Interpretation Comments Coronavirus Type OC43 (PCR) (test code = Coronavirus T ype OC43 (PCR)) NOT DETECTED NOT DETECT [facility] CenterCoronavirus Type 229E (PCR)2020-01-01 05:49:00* Test Item Value Reference Range Interpretation Comments Coronavirus Type 229E (PCR) (test code = Coronavirus T ype 229E (PCR)) NOT DETECTED NOT DETECT Test performed at [facility] [place], [place] [address]RESULTS HAVE BEEN CALLED TO THE PHYSICIANMethodist [facility] Medical CenterDifferential Total Cells Pauzvkj4678-09-37 21:02:00* Test Item Value Reference Range Interpretation Comments Differential Total Cells Counted (test code = Differen tial Total Cells Counted) 100 [facility] CenterNeutrophils % (Manual)2019-12-31 21:02:00 * Test Item Value Reference Range Interpretation Comments Neutrophils % (Manual) (test code = 33953-5) 61 40-74 [facility] CenterBand Neutrophils %2019-12-31 21:02:00* Test Item Value Reference Range Interpretation Comments Band Neutrophils % (test code = 764-1) 2 [facility] CenterLymphocytes % (Manual)2019-12-31 21:02:00 * Test Item Value Reference Range Interpretation Comments Lymphocytes % (Manual) (test code = 737-7) 22 19-48 [facility] CenterMonocytes % (Manual)2019-12-31 21:02:00* Test Item Value Reference Range Interpretation Comments Monocytes % (Manual) (test code = 744-3) 6 3.4-9.0 [facility] CenterEosinophils % (Manual)2019-12-31 21:02:00 * Test Item Value Reference Range Interpretation Comments Eosinophils % (Manual) (test code = 714-6) 1 0-7 [facility] CenterMetamyelocytes %2019-12-31 21:02:00* Test Item Value Reference Range Interpretation Comments Metamyelocytes % (test code = 740-1) 1 0-0 H [facility] CenterMyelocytes %2019-12-31 21:02:00* Test Item Value Reference Range Interpretation Comments Myelocytes % (test code = 749-2) 1 0-0 H [facility] CenterReactive Oqcxbebfzos3397-91-62 21:02:00* Test Item Value Reference Range Interpretation Comments Reactive Lymphocytes (test code = 23273-5) 6 [facility] CenterPlatelet Zapbaciv2551-35-96 21:02:00* Test Item Value Reference Range Interpretation Comments Platelet Estimate (test code = 13555-7) ADEQUATE [facility] CenterPlatelet Morphology Rrczcnd0468-69-90 21:02:00* Test Item Value Reference Range Interpretation Comments Platelet Morphology Comment (test code = 33473-1) NORMAL [facility] CenterRed Cell Morphology Eudsbkw1402-77-20 21:02:00* Test Item Value Reference Range Interpretation Comments Red Cell Morphology Comment (test code = 6742-1) NORMAL [facility] CenterCreatine Mdrooo5812-47-07 15:18:00* Test Item Value Reference Range Interpretation Comments Creatine Kinase (test code = 2157-6) 24 29-168 L [facility] CenterCreatine Kinase VK1694-68-37 15:18:00* Test Item Value Reference Range Interpretation Comments Creatine Kinase MB (test code = 77626-6) 0.30 0-5.0 [facility] CenterTroponin S8828-59-22 15:18:00* Test Item Value Reference Range Interpretation Comments Troponin I (test code = YNH7131) 0.001 0-0.300 [facility] CenterGroup A Streptococcus Iclzdi9755-12-73 14:57:00* Test Item Value Reference Range Interpretation Comments Group A Streptococcus Screen (test code = 19625-8) NEGATIVE [facility] antigen detection in krvtlp6097-51-53 14:37:00* Test Item Value Reference Range Interpretation Comments Group A Streptococcus Screen (test code = 87401-9) NEGATIVE [facility]G [facility]IVE [facility]pt[facility] pyogenes antigen detection in lrnuwk5511-93-77 14:37:00* Test Item Value Reference Range Interpretation Comments Group A Streptococcus Screen (test code = 28136-4) NEGATIVE [facility]G [facility]IVE [facility]pt[facility] pyogenes antigen detection in iqtmyr8716-16-18 14:37:00* Test Item Value Reference Range Interpretation Comments Group A Streptococcus Screen (test code = 37084-2) NEGATIVE NEG ATIVE [facility] CenterFluoroscopic procedure less than one hour ehmcvhig5845-53-98 13:25:00* Test Item Value Reference Range Interpretation Comments Differential Total Cells Counted (test code = Amanda tial Total Cells Counted) 100 [facility] blood neutrophils/100 leukocytes 2019-12-31 13:25:00* Test Item Value Reference Range Interpretation Comments Neutrophils % (Manual) (test code = 83033-8) 61 40-74 [facility] blood band neutrophils form/100 zuproqgple0073-90-47 13:25:00* Test Item Value Reference Range Interpretation Comments Band Neutrophils % (test code = 764-1) 2 [facility] blood lymphocytes/100 leukocytes 2019-12-31 13:25:00* Test Item Value Reference Range Interpretation Comments Lymphocytes % (Manual) (test code = 737-7) 22 19-48 [facility] blood monocytes/100 leukocytes 2019-12-31 13:25:00* Test Item Value Reference Range Interpretation Comments Monocytes % (Manual) (test code = 744-3) 6 3.4-9.0 [facility] blood eosinophil count as percentage of total ltqoertyad7787-13-76 13:25:00* Test Item Value Reference Range Interpretation Comments Eosinophils % (Manual) (test code = 714-6) 1 0-7 [facility] blood metamyelocytes/100 lbkxbwpymn9460-05-84 13:25:00* Test Item Value Reference Range Interpretation Comments Metamyelocytes % (test code = 740-1) 1 0-0 [facility] blood myelocytes/100 leukocytes 2019-12-31 13:25:00* Test Item Value Reference Range Interpretation Comments Myelocytes % (test code = 749-2) 1 0-0 [facility] lymphocytes variant count (number/volume)2019-12-31 13:25:00* Test Item Value Reference Range Interpretation Comments Reactive Lymphocytes (test code = 09432-9) 6 [facility] platelets count by estimate (number/volume)2019-12-31 13:25:00* Test Item Value Reference Range Interpretation Comments Platelet Estimate (test code = 89736-0) ADEQUATE [facility] CenterPlatelet lblzeinhag0705-70-20 13:25:00* Test Item Value Reference Range Interpretation Comments Platelet Morphology Comment (test code = 23165-7) NORMAL [facility] CenterRB oizibnkmtd6727-92-35 13:25:00* Test Item Value Reference Range Interpretation Comments Red Cell Morphology Comment (test code = 6742-1) NORMAL [facility] CenterFluoroscopic procedure less than one hour wccwlnnp2704-84-38 13:25:00* Test Item Value Reference Range Interpretation Comments Differential Total Cells Counted (test code = Aamnda tial Total Cells Counted) 100 [facility] blood neutrophils/100 leukocytes 2019-12-31 13:25:00* Test Item Value Reference Range Interpretation Comments Neutrophils % (Manual) (test code = 03878-0) 61 40-74 [facility] blood band neutrophils form/100 ukbdhbltyz1594-88-32 13:25:00* Test Item Value Reference Range Interpretation Comments Band Neutrophils % (test code = 764-1) 2 [facility] blood lymphocytes/100 leukocytes 2019-12-31 13:25:00* Test Item Value Reference Range Interpretation Comments Lymphocytes % (Manual) (test code = 737-7) 22 19-48 [facility] blood monocytes/100 leukocytes 2019-12-31 13:25:00* Test Item Value Reference Range Interpretation Comments Monocytes % (Manual) (test code = 744-3) 6 3.4-9.0 [facility] blood eosinophil count as percentage of total rkjgddvucg8060-55-16 13:25:00* Test Item Value Reference Range Interpretation Comments Eosinophils % (Manual) (test code = 714-6) 1 0-7 [facility] blood metamyelocytes/100 aspghakait7005-11-68 13:25:00* Test Item Value Reference Range Interpretation Comments Metamyelocytes % (test code = 740-1) 1 0-0 [facility] blood myelocytes/100 leukocytes 2019-12-31 13:25:00* Test Item Value Reference Range Interpretation Comments Myelocytes % (test code = 749-2) 1 0-0 [facility] lymphocytes variant count (number/volume)2019-12-31 13:25:00* Test Item Value Reference Range Interpretation Comments Reactive Lymphocytes (test code = 31117-1) 6 [facility] platelets count by estimate (number/volume)2019-12-31 13:25:00* Test Item Value Reference Range Interpretation Comments Platelet Estimate (test code = 78566-1) ADEQUATE [facility] CenterPlatelet kjtonluaxz1661-48-08 13:25:00* Test Item Value Reference Range Interpretation Comments Platelet Morphology Comment (test code = 30445-1) NORMAL [facility] CenterRB euyjszevdb4516-06-70 13:25:00* Test Item Value Reference Range Interpretation Comments Red Cell Morphology Comment (test code = 6742-1) NORMAL [facility] CenterFluoroscopic procedure less than one hour ytonjwye4355-38-95 13:25:00* Test Item Value Reference Range Interpretation Comments Differential Total Cells Counted (test code = Differmilton tial Total Cells Counted) 100 [facility] blood neutrophils/100 leukocytes 2019-12-31 13:25:00* Test Item Value Reference Range Interpretation Comments Neutrophils % (Manual) (test code = 83398-9) 61 40-74 [facility] blood band neutrophils form/100 ihaekaypyf8356-33-37 13:25:00* Test Item Value Reference Range Interpretation Comments Band Neutrophils % (test code = 764-1) 2 [facility] blood lymphocytes/100 leukocytes 2019-12-31 13:25:00* Test Item Value Reference Range Interpretation Comments Lymphocytes % (Manual) (test code = 737-7) 22 19-48 [facility] CenterManual blood monocytes/100 leukocytes 2019-12-31 13:25:00* Test Item Value Reference Range Interpretation Comments Monocytes % (Manual) (test code = 744-3) 6 3.4-9.0 [facility] blood eosinophil count as percentage of total xtisdbgbij0342-52-30 13:25:00* Test Item Value Reference Range Interpretation Comments Eosinophils % (Manual) (test code = 714-6) 1 0-7 [facility] metamyel[facility]/100 zrndkehblv0316-65-62 13:25:00* Test Item Value Reference Range Interpretation Comments Metamyelocytes % (test code = 740-1) 1 0-0 [facility] blood myelocytes/100 leukocytes 2019-12-31 13:25:00* Test Item Value Reference Range Interpretation Comments Myelocytes % (test code = 749-2) 1 0-0 [facility] lymphocytes variant count (number/volume)2019-12-31 13:25:00* Test Item Value Reference Range Interpretation Comments Reactive Lymphocytes (test code = 68583-0) 6 [facility] CenterBlood platelets count by estimate (number/volume)2019-12-31 13:25:00* Test Item Value Reference Range Interpretation Comments Platelet Estimate (test code = 36092-0) ADEQUATE [facility] CenterPlatelet syznngjxwc1070-81-76 13:25:00* Test Item Value Reference Range Interpretation Comments Platelet Morphology Comment (test code = 56334-8) NORMAL [facility] CenterRB jfapewvwbq3427-97-15 13:25:00* Test Item Value Reference Range Interpretation Comments Red Cell Morphology Comment (test code = 6742-1) NORMAL [facility] CenterCHEST SINGLE (PORTABLE)2019-12-31 13:13:00 [facility] [address] [place] [address] Patient Name: YOLETTE URIBE MR #: [id number] : 1975 Age/Sex: 44/F Req #: [id number] Adm Physician: Ordered by: BK MORENO SHIPS OR BARGES LOADER Report #: [id number] Location: ER Room/Bed: Procedure: [id number] DX /CHEST SINGLE (PORTABLE) Exam Date: 12/31/19 [...] JEMAL on 12/31/19 1313 C OPY TO: BK MORENO SHIPS OR BARGES LOADER Fluoroscopic procedure less than one hour jfkusnhi5613-30-44 13:00:00* Test Item Value Reference Range Interpretation Comments Chlamydia pneumoniae DNA (PCR) (test code = Chlamydia pneumoniae DNA (PCR)) NOT DETECTED NOT DETECT Test performed at [place] [address]RESULTS HAVE BEEN CALLED TO THE PHYSICIANMethodist [facility] Medical CenterRespiratory virus bybrg1692-28-90 13:00:00* Test Item Value Reference Range Interpretation Comments Influenza Type A (RT-PCR) (test code = 248487331) NOT DETECTED NOT DETECT [facility] CenterFluoroscopic procedure less than one hour bhzxiyrm7786-49-62 13:00:00* Test Item Value Reference Range Interpretation Comments Mycoplasma pneumoniae (PCR) (test code = Mycoplasma pn eumoniae (PCR)) NOT DETECTED NOT DETECT [facility] CenterRespiratory virus gyvse7833-84-78 13:00:00* Test Item Value Reference Range Interpretation Comments Influenza Type B (RT-PCR) (test code = 522716615) NOT DETECTED NOT DETECT [facility] CenterRespiratory virus bnttk9083-67-15 13:00:00* Test Item Value Reference Range Interpretation Comments Respiratory Syncytial Virus (PCR) (test code = 610241394) NO T DETECTED NOT DETECT [facility] sscbh8836-73-69 13:00:00* Test Item Value Reference Range Interpretation Comments Bordetella pertussis DNA (PCR) (test code = 939055995) NOT DETEC ROXANE NOT DETECT [facility] CenterRespiratory virus kogov9992-98-50 13:00:00* Test Item Value Reference Range Interpretation Comments Parainfluenza Type 1 (PCR) (test code = 238035834) NOT DETECTED NOT DETECT [facility] CenterRespiratory virus uwxav8892-01-67 13:00:00* Test Item Value Reference Range Interpretation Comments Parainfluenza Type 2 (PCR) (test code = 170357436) NOT DETECTED NOT DETECT [facility] CenterRespiratory virus mvopz6039-44-73 13:00:00* Test Item Value Reference Range Interpretation Comments Parainfluenza Type 3 (PCR) (test code = 065943351) NOT DETECTED NOT DETECT [facility] CenterFluoroscopic procedure less than one hour rmlqpmbf6588-50-67 13:00:00* Test Item Value Reference Range Interpretation Comments Parainfluenza Type 4 (PCR) (test code = Parainfluenza Type 4 (PCR)) NOT DETECTED NOT DETECT [facility] CenterRespiratory virus zhatw1403-78-99 13:00:00* Test Item Value Reference Range Interpretation Comments Rhinovirus (PCR) (test code = 809296586) NOT DETECTED NOT DETECT [facility] CenterRespiratory virus dgnhp1632-10-88 13:00:00* Test Item Value Reference Range Interpretation Comments Human Metapneumovirus (PCR) (test code = 947291303) NOT DETECTED NO T DETECT [facility] CenterRespiratory virus moaog4638-70-30 13:00:00* Test Item Value Reference Range Interpretation Comments Adenovirus (PCR) (test code = 187464061) NOT DETECTED NOT DETECT [facility] CenterFluoroscopic procedure less than one hour dyesplkz1375-28-81 13:00:00* Test Item Value Reference Range Interpretation Comments Coronavirus Type 229E (PCR) (test code = Coronavirus T ype 229E (PCR)) NOT DETECTED NOT DETECT Test performed at [place] [address]RESULTS HAVE BEEN CALLED TO THE PHYSICIANCHI [facility]landFluoroscopic procedure less than one hour kgbdcvmt6513-80-17 13:00:00* Test Item Value Reference Range Interpretation Comments Coronavirus Type HKU1 (PCR) (test code = Coronavirus T ype HKU1 (PCR)) NOT DETECTED NOT DETECT [facility] CenterFluoroscopic procedure less than one hour dbeqmfgf3364-27-38 13:00:00* Test Item Value Reference Range Interpretation Comments Coronavirus Type NL63 (PCR) (test code = Coronavirus T ype NL63 (PCR)) NOT DETECTED NOT DETECT [facility] CenterFluoroscopic procedure less than one hour itxhekfy9398-16-83 13:00:00* Test Item Value Reference Range Interpretation Comments Coronavirus Type OC43 (PCR) (test code = Coronavirus T ype OC43 (PCR)) NOT DETECTED NOT DETECT [facility] CenterFluoroscopic procedure less than one hour xcboviwy7268-82-15 13:00:00* Test Item Value Reference Range Interpretation Comments Coronavirus (PCR) (test code = Coronavirus (PCR)) NOT DETECTED NOTD ETECTED CORONAVIRUS RRHI-VRH-9-RT-PCR (RESPIRATORY)This test has been validated but FDA' s independent review of the validation is pending. This test is performed as a l aboratory developed test; independent review of the validation under FDA's Emerg ency Use Authorization (EUA) authority will be performed according to current [facility] requirements.We will continue to follow federal and state requirements fo r both notification of results and confirmatory testing that is required by [facility] her agency.This test was developed and its performance characteristics determine d by [employer]. It has not been cleared or approved by the U.S. Food and Drug Administration. Results should be used in conjunction with clinical finding s, and should not form the sole basis for a diagnosis or treatment decision.Spec imen sent to [facility] and performed at [place], [address] [place] [address]. [id number] Dallas Medical CenterFluoroscopic procedure less than one hour fsypukjo6144-73-60 13:00:00* Test Item Value Reference Range Interpretation Comments Chlamydia pneumoniae DNA (PCR) (test code = Chlamydia pneumoniae DNA (PCR)) NOT DETECTED NOT DETECT Test performed at [facility] [place] [address]RESULTS HAVE BEEN CALLED TO THE PHYSICIANMethodist [facility] Medical CenterRespiratory virus hyfis5274-71-31 13:00:00* Test Item Value Reference Range Interpretation Comments Influenza Type A (RT-PCR) (test code = 340050344) NOT DETECTED NOT DETECT [facility] CenterFluoroscopic procedure less than one hour qicjufgh2177-91-33 13:00:00* Test Item Value Reference Range Interpretation Comments Mycoplasma pneumoniae (PCR) (test code = Mycoplasma pn eumoniae (PCR)) NOT DETECTED NOT DETECT [facility] CenterRespiratory virus tfgci2905-45-45 13:00:00* Test Item Value Reference Range Interpretation Comments Influenza Type B (RT-PCR) (test code = 275176356) NOT DETECTED NOT DETECT [facility] CenterRespiratory virus dmhny9384-50-07 13:00:00* Test Item Value Reference Range Interpretation Comments Respiratory Syncytial Virus (PCR) (test code = 453284426) NO T DETECTED NOT DETECT [facility]landRespiratory virus ibmif1114-14-64 13:00:00* Test Item Value Reference Range Interpretation Comments Bordetella pertussis DNA (PCR) (test code = 615731794) NOT DETEC ROXANE NOT DETECT [facility] CenterRespiratory virus aniqw9619-99-05 13:00:00* Test Item Value Reference Range Interpretation Comments Parainfluenza Type 1 (PCR) (test code = 974355716) NOT DETECTED NOT DETECT [facility] CenterRespiratory virus nlpqv6971-82-65 13:00:00* Test Item Value Reference Range Interpretation Comments Parainfluenza Type 2 (PCR) (test code = 862273015) NOT DETECTED NOT DETECT [facility] CenterRespiratory virus jgetn5813-24-73 13:00:00* Test Item Value Reference Range Interpretation Comments Parainfluenza Type 3 (PCR) (test code = 498122361) NOT DETECTED NOT DETECT [facility] CenterFluoroscopic procedure less than one hour pfbugmqq2779-10-75 13:00:00* Test Item Value Reference Range Interpretation Comments Parainfluenza Type 4 (PCR) (test code = Parainfluenza Type 4 (PCR)) NOT DETECTED NOT DETECT [facility] CenterRespiratory virus nuacg9358-96-21 13:00:00* Test Item Value Reference Range Interpretation Comments Rhinovirus (PCR) (test code = 388797220) NOT DETECTED NOT DETECT [facility] CenterRespiratory virus prcez6972-96-46 13:00:00* Test Item Value Reference Range Interpretation Comments Human Metapneumovirus (PCR) (test code = 204849239) NOT DETECTED NO T DETECT [facility] CenterRespiratory virus bxeun8665-47-77 13:00:00* Test Item Value Reference Range Interpretation Comments Adenovirus (PCR) (test code = 865678262) NOT DETECTED NOT DETECT [facility] CenterFluoroscopic procedure less than one hour jkkedjfj6689-27-63 13:00:00* Test Item Value Reference Range Interpretation Comments Coronavirus Type 229E (PCR) (test code = Coronavirus T ype 229E (PCR)) NOT DETECTED NOT DETECT Test performed at [address] [address]RESULTS HAVE BEEN CALLED TO THE PHYSICIANCHI [facility] MainlandFluoroscopic procedure less than one hour wkpedwqo8343-41-97 13:00:00* Test Item Value Reference Range Interpretation Comments Coronavirus Type HKU1 (PCR) (test code = Coronavirus T ype HKU1 (PCR)) NOT DETECTED NOT DETECT [facility] CenterFluoroscopic procedure less than one hour jgrjkdif4287-55-87 13:00:00* Test Item Value Reference Range Interpretation Comments Coronavirus Type NL63 (PCR) (test code = Coronavirus T ype NL63 (PCR)) NOT DETECTED NOT DETECT [facility] CenterFluoroscopic procedure less than one hour hfdfyzmg5389-89-74 13:00:00* Test Item Value Reference Range Interpretation Comments Coronavirus Type OC43 (PCR) (test code = Coronavirus T ype OC43 (PCR)) NOT DETECTED NOT DETECT [facility] CenterFluoroscopic procedure less than one hour dtumihff7536-44-30 13:00:00* Test Item Value Reference Range Interpretation Comments Coronavirus (PCR) (test code = Coronavirus (PCR)) NOT DETECTED NOTD ETECTED CORONAVIRUS KZBB-IZH-5-RT-PCR (RESPIRATORY)This test has been validated but FDA' s independent review of the validation is pending. This test is performed as a l aboratory developed test; independent review of the validation under FDA's Emerg ency Use Authorization (EUA) authority will be performed according to current [facility] requirements.We will continue to follow federal and state requirements fo r both notification of results and confirmatory testing that is required by [facility] her agency.This test was developed and its performance characteristics determine d by [employer]. It has not been cleared or approved by the U.S. Food and Drug Administration. Results should be used in conjunction with clinical finding s, and should not form the sole basis for a diagnosis or treatment decision.Spec imen sent to [facility] and performed at [employer], [address] [place] [address]. 43891JFCMethodist [facility] Medical CenterFluoroscopic procedure less than one hour hzxeaovo2822-78-87 13:00:00* Test Item Value Reference Range Interpretation Comments Chlamydia pneumoniae DNA (PCR) (test code = Chlamydia pneumoniae DNA (PCR)) NOT DETECTED NOT DETECT Test performed [place] [address] [place] [address]RESULTS HAVE BEEN CALLED TO THE PHYSICIANCHI [facility]landRespiratory virus saavg7253-87-45 13:00:00* Test Item Value Reference Range Interpretation Comments Influenza Type A (RT-PCR) (test code = 608857221) NOT DETECTED NOT DETECT [facility]landFluoroscopic procedure less than one hour vomxteos4454-05-12 13:00:00* Test Item Value Reference Range Interpretation Comments Mycoplasma pneumoniae (PCR) (test code = Mycoplasma pn eumoniae (PCR)) NOT DETECTED NOT DETECT [facility]landRespiratory virus jnuti7514-76-10 13:00:00* Test Item Value Reference Range Interpretation Comments Influenza Type B (RT-PCR) (test code = 242622968) NOT DETECTED NOT DETECT [facility]landRespiratory virus ubxem4337-49-53 13:00:00* Test Item Value Reference Range Interpretation Comments Respiratory Syncytial Virus (PCR) (test code = 449372896) NO T DETECTED NOT DETECT [facility]landRespiratory virus zqxna2102-05-81 13:00:00* Test Item Value Reference Range Interpretation Comments Bordetella pertussis DNA (PCR) (test code = 286962856) NOT DETEC ROXANE NOT DETECT [facility]landRespiratory virus lavoh5800-95-84 13:00:00* Test Item Value Reference Range Interpretation Comments Parainfluenza Type 1 (PCR) (test code = 214261564) NOT DETECTED NOT DETECT [facility]landRespiratory virus yqbmy7722-36-03 13:00:00* Test Item Value Reference Range Interpretation Comments Parainfluenza Type 2 (PCR) (test code = 992796652) NOT DETECTED NOT DETECT [facility]landRespiratory virus vrpes5431-50-20 13:00:00* Test Item Value Reference Range Interpretation Comments Parainfluenza Type 3 (PCR) (test code = 310084910) NOT DETECTED NOT DETECT [facility]landFluoroscopic procedure less than one hour gzktbtmz5869-65-47 13:00:00* Test Item Value Reference Range Interpretation Comments Parainfluenza Type 4 (PCR) (test code = Parainfluenza Type 4 (PCR)) NOT DETECTED NOT DETECT [facility] CenterRespiratory virus edarb0244-17-38 13:00:00* Test Item Value Reference Range Interpretation Comments Rhinovirus (PCR) (test code = 389070818) NOT DETECTED NOT DETECT [facility] CenterRespiratory virus mxfrb7582-10-13 13:00:00* Test Item Value Reference Range Interpretation Comments Human Metapneumovirus (PCR) (test code = 310213757) NOT DETECTED NO T DETECT [facility] CenterRespiratory virus bldlv7586-95-89 13:00:00* Test Item Value Reference Range Interpretation Comments Adenovirus (PCR) (test code = 627741738) NOT DETECTED NOT DETECT [facility] CenterFluoroscopic procedure less than one hour wsqzxqbx2964-43-60 13:00:00* Test Item Value Reference Range Interpretation Comments Coronavirus Type 229E (PCR) (test code = Coronavirus T ype 229E (PCR)) NOT DETECTED NOT DETECT Test performed at [address] [address]RESULTS HAVE BEEN CALLED TO THE PHYSICIANCHI [facility]landFluoroscopic procedure less than one hour zatibfbc9455-98-54 13:00:00* Test Item Value Reference Range Interpretation Comments Coronavirus Type HKU1 (PCR) (test code = Coronavirus T ype HKU1 (PCR)) NOT DETECTED NOT DETECT [facility] CenterFluoroscopic procedure less than one hour boqeujkk2164-73-18 13:00:00* Test Item Value Reference Range Interpretation Comments Coronavirus Type NL63 (PCR) (test code = Coronavirus T ype NL63 (PCR)) NOT DETECTED NOT DETECT [facility] CenterFluoroscopic procedure less than one hour zcxcabfe6986-10-56 13:00:00* Test Item Value Reference Range Interpretation Comments Coronavirus Type OC43 (PCR) (test code = Coronavirus T ype OC43 (PCR)) NOT DETECTED NOT DETECT [facility]landFluoroscopic procedure less than one hour nvozxwtj7766-24-51 13:00:00* Test Item Value Reference Range Interpretation Comments Coronavirus (PCR) (test code = Coronavirus (PCR)) NOT DETECTED NOTD ETECTED CORONAVIRUS TVQT-LPP-5-RT-PCR (RESPIRATORY)This test has been validated but FDA' s independent review of the validation is pending. This test is performed as a l aboratory developed test; independent review of the validation under FDA's Emerg ency Use Authorization (EUA) authority will be performed according to current [facility] requirements.We will continue to follow federal and state requirements fo r both notification of results and confirmatory testing that is required by [facility] her agency.This test was developed and its performance characteristics determine d by [employer]. It has not been cleared or approved by the U.S. Food and Drug Administration. Results should be used in conjunction with clinical finding s, and should not form the sole basis for a diagnosis or treatment decision.Spec imen sent to [facility] and [facility], [address] [place] [address]. [address]ZKC [facility] MainlandInfluenza Virus Types A,B Ylysdsl2813-21-21 11:26:00* Test Item Value Reference Range Interpretation Comments Influenza Virus Types A,B Antigen (test code = 48064-3) NEGATIVE NEGATIVE [facility] CenterInfluenza virus A and B antigen identification by frhartrbmmqnivpajy7720-72-41 10:49:00* Test Item Value Reference Range Interpretation Comments Influenza Virus Types A,B Antigen (test code = 31249-7) NEGATIVE NEGATIVE [facility] CenterInfluenza virus A and B antigen identification by kcxstmprlnugaietpk0783-03-30 10:49:00* Test Item Value Reference Range Interpretation Comments Influenza Virus Types A,B Antigen (test code = 17326-4) NEGATIVE NEGATIVE [facility] CenterInfluenza virus A and B antigen identification by qqugnbdadqewlacwdr8713-16-81 10:49:00* Test Item Value Reference Range Interpretation Comments Influenza Virus Types A,B Antigen (test code = 70079-0) NEGATIVE NEGATIVE [facility] CenterXRAY KNEE 4 OR MORE VIEWS [...] erosion.Signed By: Yazan Terrazas MD, 11/23/2019 2:43 PMWayside Emergency HospitalMMOGRAM BILAT SCREEN GOAEYUT8565-95-27 14:41:00IMPRESSION: BENIGNThere is no mammographic evidence of malignancy. A 1 year screening mammogram is recommended. I have reviewed the study and agree with the findings in the report. This document has been electronically signed. paresh Negrete M.D./inésrad:11/23/2019 14:41:39 Serology Teacher: Bethany Boles [facility] sent: Benign Exam Mammogram BI-RADS: 2 Benign G0202 z12.31Interface, Rad/Mammog In - 11/23/2019 3:10 PM [employer]ATION PILOT#[id number] - MAMMOGRAM BILAT SCREEN DIGITALBILATERAL DIGITAL SCREENING [...] report.This document has been electronically signed.paresh Negrete M.D./penrad:11/23/2019 14:41:39 Serology Teacher: Bethany Boles [facility] Woodburyletter sent: Benign Exam Mammogram BI-RADS: 2 Benign G0202 z12.31[facility] THREE KNPIW1748-26-82 10:47:00 [place] [id number] [place] [address] Patient Name: YOLETTE URIBE MR #: [id number] : 1975 Age/Sex: 44/F Req #: [id number] Adm Physician: Ordered by: CHEIKH PIKE MD Report #: [id number] Location: ER Room/Bed: Procedure: 6154-5023 DX/KNEE LEFT THREE VIEWS Exam Date: 10/10/19 Exam Time: 1005 REPORT STATUS: Signed Exam: Left knee 3 views History: Knee pain Comparison: None. Findings: No fracture or malalignment. Joint spaces preserved. No abnormal soft tissue calcification or soft tissue defect. Impression: No acute osseous a bnormality Signed by: Dr. Bryan Nicole M.D. on 10/10/2019 10:48 AM Dictated By: BRYAN NICOLE MD 1048 Transcribed By: JEMAL on 10/10/19 1048 COPY TO: CHEIKH PIKE MD FOOT RIGHT KEPUUPED6932-10-20 10:43:00 [place] [address] Patient Name: YOLETTE URIBE MR #: [id number] : 1975 Age/Sex: 44/F Req #: [id number] Adm Physician: Ordered by: CHEIKH PIKE MD Report #: [id number] Location: ER Room/Bed: Procedure: 8522-1793 DX/FOOT RIGHT COMPLETE Exam Date: 10/10/19 Exam [...] NICOLE MD 1047 Transcribed By: JEMAL on 104 COPY TO: CHEIKH PIKE MD ANKLE 3 + VIEWS RIGHT 2019-10-10 10:43:00 [place] [address] Patient Name: YOLETTE URIBE MR #: [id number] : 1975 Age/Sex: 44/F Req #: [id number] Adm Physician: Ordered by: CHEIKH PIKE MD Report #: [id number] Location: ER Room/Bed: Procedure: [id number] DX/ANKLE 3 + VIEWS RIGHT Exam Date: [...] ly Signed By: BRYAN NICOLE MD on 10/10/191046 Transcribed By: JEMAL on 104 COPY TO: CHEIKH PIKE MD LOWER LEG BUGQU9500-76-01 10:43:00 [place] [address] Patient Name: YOLETTE URIBE MR #: [id number] : 1975 Age/Sex: 44/F Req #: [id number] Adm Physician: Ordered by: CHEIKH PIKE MD Report #: [id number] Location: ER Room/Bed: Procedure: 0711-2341 DX/LOWER LEG RIGHT Exam Date: 10/10/19 Exam [...] Sig nicki By: BRYAN NICOLE MD on 10/10/191046 Transcribed By: JEMAL on 1046 COPY TO: CHEIKH PIKE MD KNEE RIGHT THREE VIEWS 2019-10-10 10:43:00 [place] [address] Patient Name: YOLETTE URIBE MR #: [id number] : 1975 Age/Sex: 44/F Req #: [id number] Adm Physician: Ordered by: CHEIKH PIKE MD Report #: [id number] Location: ER Room/Bed: Procedure: 2946-6527 DX/KNEE RIGHT THREE VIEWS Exam Date: 10/10/19 [...] on 10/10/19 1047 Transcribed By: JEMAL on 10/10/19 1047 COPY TO: CHEIKH PIKE MD XRAY SPINE THORACIC 2 SPEBP4679-90-13 14:46:32IMPRESSION: 1. Please note that thoracic spine radiography is not a sensitive norspecific modality to assess for spine osteomyelitis/discitis.2. Multilevel degenerative changes of the thoracic spine. Dictated By: Sanjay Velasquez MD, 08/30/2019 2:45 PM I have reviewed the study and agree with the findings in this report. Signed By: Yazan Terrazas MD, 08/30/2019 2:46 PM [place]/Mammog In - 08/30/2019 2:51 PM CSTEXAM: XRAY [...] report.Signed By: Yazan Terrazas MD, 08/30/2019 2:46 PMNorth[place] GvnaapATVRHH9608-72-72 15:28:00* Test Item Value Reference Range Interpretation Comments GLUBED (test code = GLUBED) 286 mg/dL 74-106 H Performed by certified timber sizer operator at [facility] CWPEUB1247-93-07 15:28:00* Test Item Value Reference Range Interpretation Comments GLUBED (test code = GLUBED) > 500 mg/dL 74-106 HH Performed by certified timber sizer operator at [facility] CenterDoctor Notified~ CBC W/O TLAK8541-04-79 14:40:00* Test Item Value Reference Range Interpretation [...] MPV) 11.7 fL 6.7-11.0 H CBC W/O YEVB9921-85-66 14:37:00* Test Item Value Reference Range Interpretation [...] MPV) fL 6.7-11.0 - CT ABD PELVIS W/AERN0507-79-69 12:34:00 Name: YOLETTE URIBE [facility] : 1975 Age/S: 44 / F [address] [facility] Unit #: [id number] Loc: [place] [address] Phys: Farshad Tran MD Acct: [id number] Dis Date: Status: REG ER PHONE #: [phone] Exam Date: 08/29/2019 1203 FAX #: [phone] Reason: lower abd pain EXAMS: CPT CODE: [id number] CT ABD PELVIS W/CONT 83215 REASON FOR EXAM: lower abd pain EXAM [...] Signed Report (CO NTINUED) Name: YOLETTE URIBE [facility] : 1975 Age/S: 44 / F [address] [facility] Unit #: [id number] Loc: [place] [address] Phys: Farshad Saldana MD Acct: [id number] Dis Date: Status: REG ER P MAGDA #: [phone] Exam Date: 08/29/2019 1203 FAX #: [phone] Reason: lower abd pain EX AMS: CPT CODE: [id number] CT A BD PELVIS W/CONT 45181 <Continued> Location: [facility] at 1234 Reported and signed by: Heriberto John MD CC: Farshad Tran MD; Lamberto Shrestha III, MD Technologist:Liseth Manzanares RT(R),CT CTDI: DLP: Trnscb Date/Time: 08/29/2019 (1234) t.SDR.RR31 Orig Print D/T: S: 08/29/2019 (6383) PAGE 2 Signed Report URINALYSIS UROMBQOG0326-85-44 11:44:00* Test Item Value Reference Range Interpretation [...] FEW #/LPF FEW Urine Source? Clean CatchURINALYSIS RJVPZHVY4391-28-97 11:39:00* Test Item Value Reference Range Interpretation [...] #/LPF FEW Urine Source? Clean CatchBASIC METABOLIC SOUYB2533-41-07 11:38:00* Test Item Value Reference Range Interpretation [...] 541 mg/dL 74-106 Re sults called to [id number] by GWEN 08/29/19 1138Critical results verified and [...] CA) 9.3 mg/dL 8.5-10.1 N HEPATIC FUNCTION VEZRW6783-93-72 11:38:00* Test Item Value Reference Range Interpretation [...] reference range due to change in reagent. OYUADO1078-22-84 11:38:00* Test Item Value Reference Range Interpretation Comments LIPASE (test code = LIP) 131 U/L 73.0-393.0 N BASIC METABOLIC WPREC7305-44-48 11:24:00* Test Item Value Reference Range Interpretation [...] code = CA) mg/dL 8.5-10.1 HEPATIC FUNCTION FWRAM7737-93-03 11:24:00* Test Item Value Reference Range Interpretation [...] TOTAL (test code = ALKP) IUnit/L 45-117 ICHALX3689-39-52 11:24:00* Test Item Value Reference Range Interpretation Comments LIPASE (test code = LIP) U/L 73.0-393.0 Blood Nfeuljy9763-30-88 09:50:00* Test Item Value Reference Range Interpretation Comments Blood Culture (test code = 33772397) NO GROWTH AFTER 5 DAYS, FINAL REPORT [facility]2019-11-12 09:50:00* Test Item Value Reference Range Interpretation Comments Blood Culture (test code = 45599367) NO GROWTH AFTER 5 DAYS, FINAL REPORT [facility]2019-11-12 09:50:00* Test Item Value Reference Range Interpretation Comments Blood Culture (test code = 32478107) NO GROWTH AFTER 5 DAYS, FINAL REPORT [facility]2019-11-11 04:39:00* Test Item Value Reference Range Interpretation Comments Bedside Glucose (test code = 70617-2) 299 70-120 H Meter ID: [id number]. [facility] 2019-08-23 04:39:00* Test Item Value Reference Range Interpretation Comments Bedside Glucose (test code = 11064-7) 299 70-120 H Meter ID: [id number] Orthopedic Hospital 2019-08-22 09:50:00* Test Item Value Reference Range Interpretation Comments Blood Culture (test code = 74224705) NO GROWTH AFTER [address] [facility]2019-11-10 08:41:00* Test Item Value Reference Range Interpretation Comments Wound Culture (test code = 6462-6) No Result Data Provided [facility]2019-11-10 08:41:00* Test Item Value Reference Range Interpretation Comments Wound Culture (test code = 6462-6) No Result Data Provided [facility]2019-11-10 08:41:00* Test Item Value Reference Range Interpretation Comments Wound Culture (test code = 6462-6) No Result Data Provided [facility]2019-11-10 08:41:00* Test Item Value Reference Range Interpretation Comments Wound Culture (test code = 6462-6) No Result Data Provided [facility]2019-11-10 07:40:00* Test Item Value Reference Range Interpretation Comments Bedside Glucose (test code = 38500-8) 321 70-120 H Meter ID: [id number] [facility]landVancomycin Level Dayfwb4313-46-03 06:36:00* Test Item Value Reference Range Interpretation Comments Vancomycin Level Trough (test code = 4092-3) 4.5 5.0-10.0 L [facility] CenterVancomycin Level Jfbmhw2438-72-43 06:36:00* Test Item Value Reference Range Interpretation Comments Vancomycin Level Trough (test code = 4092-3) 4.5 5.0-10.0 L [facility] CenterVancomycin Level Llkvvf4614-70-53 06:36:00* Test Item Value Reference Range Interpretation Comments Vancomycin Level Trough (test code = 4092-3) 4.5 5.0-10.0 L [facility] CenterVancomycin Level Cbagjr9478-71-52 06:36:00* Test Item Value Reference Range Interpretation Comments Vancomycin Level Trough (test code = 4092-3) 4.5 5.0-10.0 L [facility] Pnlwr7451-15-21 06:26:00* Test Item Value Reference Range Interpretation Comments Sodium Level (test code = 2951-2) 136 136-145 [facility] CenterPotassium Htmnt2109-61-22 06:26:00* Test Item Value Reference Range Interpretation Comments Potassium Level (test code = 2823-3) 4.6 3.5-5.1 [facility] CenterChloride Icahm4374-73-56 06:26:00* Test Item Value Reference Range Interpretation Comments Chloride Level (test code = 2075-0) 98 98-107 [facility] CenterCarbon Dioxide Qxfxu8109-81-25 06:26:00* Test Item Value Reference Range Interpretation Comments Carbon Dioxide Level (test code = 2028-9) 30 22-29 H [facility] CenterAnion Eln0363-11-95 06:26:00* Test Item Value Reference Range Interpretation Comments Anion Gap (test code = 15761-6) 12.6 8-16 [facility] CenterBlood Urea Fqcfkysq0803-79-32 06:26:00* Test Item Value Reference Range Interpretation Comments Blood Urea Nitrogen (test code = 3094-0) 14 7-26 [facility] CenterCreatinine2019-11-10 06:26:00* Test Item Value Reference Range Interpretation Comments Creatinine (test code = 2160-0) 0.61 0.57-1.11 [facility] CenterBUN/Creatinine Clsij5895-59-15 06:26:00* Test Item Value Reference Range Interpretation Comments BUN/Creatinine Ratio (test code = 3097-3) 23 6-25 [facility] CenterEstimat Glomerular Filtration Rate 2019-08-22 06:26:00* Test Item Value Reference Range Interpretation Comments Estimat Glomerular Filtration Rate (test code = 450722630) > 60 >60 Ranges were taken from the National Kidney Disease Education Program and the [facility] Foundation literature.Reference ranges:60 or greater: Hnpzzh71-15 ( for 3 consecutive months): Chronic kidney disease 15 or less: Kidney failureMethodist Dallas Medical CenterGlucose Uykkf7444-95-11 06:26:00* Test Item Value Reference Range Interpretation Comments Glucose Level (test code = WEI4205) 314 74-118 H [facility] CenterCalcium Ytrmz5398-23-73 06:26:00* Test Item Value Reference Range Interpretation Comments Calcium Level (test code = 90148-0) 10.0 8.4-10.2 [facility]andodium Suofw8801-77-43 06:26:00* Test Item Value Reference Range Interpretation Comments Sodium Level (test code = 2951-2) 136 136-145 [facility] CenterPotassium Vfptz5853-18-97 06:26:00* Test Item Value Reference Range Interpretation Comments Potassium Level (test code = 2823-3) 4.6 3.5-5.1 [facility] CenterChloride Kveax3799-07-37 06:26:00* Test Item Value Reference Range Interpretation Comments Chloride Level (test code = 2075-0) 98 98-107 [facility] CenterCarbon Dioxide Guinz9373-03-83 06:26:00* Test Item Value Reference Range Interpretation Comments Carbon Dioxide Level (test code = 2028-9) 30 22-29 H [facility] CenterAnion Wua6303-16-07 06:26:00* Test Item Value Reference Range Interpretation Comments Anion Gap (test code = 99080-0) 12.6 8-16 [facility] CenterBlood Urea Hxousegc9075-79-18 06:26:00* Test Item Value Reference Range Interpretation Comments Blood Urea Nitrogen (test code = 3094-0) 14 7-26 [facility] CenterCreatinine2019-11-10 06:26:00* Test Item Value Reference Range Interpretation Comments Creatinine (test code = 2160-0) 0.61 0.57-1.11 [facility] CenterBUN/Creatinine Cznvo5364-58-78 06:26:00* Test Item Value Reference Range Interpretation Comments BUN/Creatinine Ratio (test code = 3097-3) 23 6-25 [facility] CenterEstimat Glomerular Filtration Rate 2019-08-22 06:26:00* Test Item Value Reference Range Interpretation Comments Estimat Glomerular Filtration Rate (test code = 933244102) > 60 >60 Ranges were taken from the National Kidney Disease Education Program and the [facility] Foundation literature.Reference ranges:60 or greater: Pfqhfl98-03 ( for 3 consecutive months): Chronic kidney disease 15 or less: Kidney failureMethodist Dallas Medical CenterGlucose Inadl0142-78-81 06:26:00* Test Item Value Reference Range Interpretation Comments Glucose Level (test code = JTE7679) 314 74-118 H [facility] CenterCalcium Shavm3207-34-67 06:26:00* Test Item Value Reference Range Interpretation Comments Calcium Level (test code = 17629-7) 10.0 8.4-10.2 [facility]ellandodium Xbhwj2233-08-85 06:26:00* Test Item Value Reference Range Interpretation Comments Sodium Level (test code = 2951-2) 136 136-145 [facility] CenterPotassium Lrbfb4527-57-04 06:26:00* Test Item Value Reference Range Interpretation Comments Potassium Level (test code = 2823-3) 4.6 3.5-5.1 [facility] CenterChloride Ummtx2499-79-32 06:26:00* Test Item Value Reference Range Interpretation Comments Chloride Level (test code = 2075-0) 98 98-107 [facility] CenterCarbon Dioxide Hrnds4334-63-21 06:26:00* Test Item Value Reference Range Interpretation Comments Carbon Dioxide Level (test code = 2028-9) 30 22-29 H [facility] CenterAnion Cjo7646-49-87 06:26:00* Test Item Value Reference Range Interpretation Comments Anion Gap (test code = 89227-0) 12.6 8-16 [facility] CenterBlood Urea Znkyzsyu8559-81-76 06:26:00* Test Item Value Reference Range Interpretation Comments Blood Urea Nitrogen (test code = 3094-0) 14 7-26 [facility] CenterCreatinine2019-11-10 06:26:00* Test Item Value Reference Range Interpretation Comments Creatinine (test code = 2160-0) 0.61 0.57-1.11 [facility] CenterBUN/Creatinine Wwbdb8519-34-00 06:26:00* Test Item Value Reference Range Interpretation Comments BUN/Creatinine Ratio (test code = 3097-3) 23 6-25 [facility] CenterEstimat Glomerular Filtration Rate 2019-08-22 06:26:00* Test Item Value Reference Range Interpretation Comments Estimat Glomerular Filtration Rate (test code = 547544655) > 60 >60 Ranges were taken from the National Kidney Disease Education Program and the [facility] Kid[facility] Foundation literature.Reference ranges:60 or greater: Kkkvbe59-52 ( for 3 consecutive months): Chronic kidney disease 15 or less: Kidney failureMethodist Dallas Medical CenterGlucose Typjf0439-56-59 06:26:00* Test Item Value Reference Range Interpretation Comments Glucose Level (test code = ZCA7675) 314 74-118 H [facility] CenterCalcium Anrnb2596-61-99 06:26:00* Test Item Value Reference Range Interpretation Comments Calcium Level (test code = 33452-5) 10.0 8.4-10.2 [facility] CenterWhite Blood Tghkf1858-86-91 06:00:00* Test Item Value Reference Range Interpretation Comments White Blood Count (test code = 6690-2) 9.60 4.8-10.8 [facility] CenterRed Blood Byuyz2754-70-21 06:00:00* Test Item Value Reference Range Interpretation Comments Red Blood Count (test code = 789-8) 3.95 3.6-5.1 [facility] CenterHemoglobin2019-11-10 06:00:00* Test Item Value Reference Range Interpretation Comments Hemoglobin (test code = 28354-2) 11.6 12.0-16.0 L [facility] CenterHematocrit2019-11-10 06:00:00* Test Item Value Reference Range Interpretation Comments Hematocrit (test code = 4544-3) 34.0 34.2-44.1 L [facility] CenterMean Corpuscular Zylclk9424-96-76 06:00:00* Test Item Value Reference Range Interpretation Comments Mean Corpuscular Volume (test code = 787-2) 86.1 81-99 [facility] CenterMean Corpuscular Lwjgcnuxnc5023-29-88 06:00:00* Test Item Value Reference Range Interpretation Comments Mean Corpuscular Hemoglobin (test code = 785-6) 29.4 28-32 [facility] CenterMean Corpuscular Hemoglobin Concent 2019-08-22 06:00:00* Test Item Value Reference Range Interpretation Comments Mean Corpuscular Hemoglobin Concent (test code = 786-4) 34.1 31-35 [facility] CenterRed Cell Distribution Ewolz7387-67-52 06:00:00* Test Item Value Reference Range Interpretation Comments Red Cell Distribution Width (test code = 52698-7) 12.7 11.7 -14.4 [facility] CenterPlatelet Wwtut5211-93-17 06:00:00* Test Item Value Reference Range Interpretation Comments Platelet Count (test code = 777-3) 319 140-360 [facility] CenterNeutrophils (%) (Auto)2019-08-22 06:00:00 * Test Item Value Reference Range Interpretation Comments Neutrophils (%) (Auto) (test code = 58176-6) 77.9 38.7-80.0 [facility] CenterLymphocytes (%) (Auto)2019-08-22 06:00:00 * Test Item Value Reference Range Interpretation Comments Lymphocytes (%) (Auto) (test code = 736-9) 15.3 18.0-39.1 L [facility] CenterMonocytes (%) (Auto)2019-08-22 06:00:00* Test Item Value Reference Range Interpretation Comments Monocytes (%) (Auto) (test code = 5905-5) 6.1 4.4-11.3 [facility] CenterEosinophils (%) (Auto)2019-08-22 06:00:00 * Test Item Value Reference Range Interpretation Comments Eosinophils (%) (Auto) (test code = 713-8) 0.0 0.0-6.0 [facility] CenterBasophils (%) (Auto)2019-08-22 06:00:00* Test Item Value Reference Range Interpretation Comments Basophils (%) (Auto) (test code = 706-2) 0.2 0.0-1.0 [facility] CenterIM GRANULOCYTES %2019-08-22 06:00:00* Test Item Value Reference Range Interpretation Comments IM GRANULOCYTES % (test code = IM GRANULOCYTES %) 0.5 0.0- 1.0 [facility] CenterNeutrophils # (Auto)2019-08-22 06:00:00* Test Item Value Reference Range Interpretation Comments Neutrophils # (Auto) (test code = 751-8) 7.5 2.1-6.9 H [facility] CenterLymphocytes # (Auto)2019-08-22 06:00:00* Test Item Value Reference Range Interpretation Comments Lymphocytes # (Auto) (test code = 55545-3) 1.5 1.0-3.2 [facility] CenterMonocytes # (Auto)2019-08-22 06:00:00* Test Item Value Reference Range Interpretation Comments Monocytes # (Auto) (test code = 742-7) 0.6 0.2-0.8 [facility] CenterEosinophils # (Auto)2019-08-22 06:00:00* Test Item Value Reference Range Interpretation Comments Eosinophils # (Auto) (test code = 711-2) 0.0 0.0-0.4 [facility] CenterBasophils # (Auto)2019-08-22 06:00:00* Test Item Value Reference Range Interpretation Comments Basophils # (Auto) (test code = 704-7) 0.0 0.0-0.1 [facility] CenterAbsolute Immature Granulocyte (auto 2019-08-22 06:00:00* Test Item Value Reference Range Interpretation Comments Absolute Immature Granulocyte (auto (chiquita t code = Absolute Immature Granulocyte (auto) 0.05 0-0.1 [facility] CenterWhite Blood Ddjus6974-62-95 06:00:00* Test Item Value Reference Range Interpretation Comments White Blood Count (test code = 6690-2) 9.60 4.8-10.8 [facility] CenterRed Blood Ydnff1865-11-56 06:00:00* Test Item Value Reference Range Interpretation Comments Red Blood Count (test code = 789-8) 3.95 3.6-5.1 [facility] CenterHemoglobin2019-11-10 06:00:00* Test Item Value Reference Range Interpretation Comments Hemoglobin (test code = 17601-7) 11.6 12.0-16.0 L [facility] CenterHematocrit2019-11-10 06:00:00* Test Item Value Reference Range Interpretation Comments Hematocrit (test code = 4544-3) 34.0 34.2-44.1 L [facility] CenterMean Corpuscular Bihbmo1814-48-59 06:00:00* Test Item Value Reference Range Interpretation Comments Mean Corpuscular Volume (test code = 787-2) 86.1 81-99 [facility] CenterMean Corpuscular Lfsjhmvuly9657-81-13 06:00:00* Test Item Value Reference Range Interpretation Comments Mean Corpuscular Hemoglobin (test code = 785-6) 29.4 28-32 [facility] CenterMean Corpuscular Hemoglobin Concent 2019-08-22 06:00:00* Test Item Value Reference Range Interpretation Comments Mean Corpuscular Hemoglobin Concent (test code = 786-4) 34.1 31-35 [facility] CenterRed Cell Distribution Nwicc1895-88-47 06:00:00* Test Item Value Reference Range Interpretation Comments Red Cell Distribution Width (test code = 12037-3) 12.7 11.7 -14.4 [facility] CenterPlatelet Dycfc9604-30-73 06:00:00* Test Item Value Reference Range Interpretation Comments Platelet Count (test code = 777-3) 319 140-360 [facility] CenterNeutrophils (%) (Auto)2019-08-22 06:00:00 * Test Item Value Reference Range Interpretation Comments Neutrophils (%) (Auto) (test code = 80150-0) 77.9 38.7-80.0 [facility] CenterLymphocytes (%) (Auto)2019-08-22 06:00:00 * Test Item Value Reference Range Interpretation Comments Lymphocytes (%) (Auto) (test code = 736-9) 15.3 18.0-39.1 L [facility] CenterMonocytes (%) (Auto)2019-08-22 06:00:00* Test Item Value Reference Range Interpretation Comments Monocytes (%) (Auto) (test code = 5905-5) 6.1 4.4-11.3 [facility] CenterEosinophils (%) (Auto)2019-08-22 06:00:00 * Test Item Value Reference Range Interpretation Comments Eosinophils (%) (Auto) (test code = 713-8) 0.0 0.0-6.0 [facility] CenterBasophils (%) (Auto)2019-08-22 06:00:00* Test Item Value Reference Range Interpretation Comments Basophils (%) (Auto) (test code = 706-2) 0.2 0.0-1.0 [facility] CenterIM GRANULOCYTES %2019-08-22 06:00:00* Test Item Value Reference Range Interpretation Comments IM GRANULOCYTES % (test code = IM GRANULOCYTES %) 0.5 0.0- 1.0 [facility] CenterNeutrophils # (Auto)2019-08-22 06:00:00* Test Item Value Reference Range Interpretation Comments Neutrophils # (Auto) (test code = 751-8) 7.5 2.1-6.9 H [facility] CenterLymphocytes # (Auto)2019-08-22 06:00:00* Test Item Value Reference Range Interpretation Comments Lymphocytes # (Auto) (test code = 34471-7) 1.5 1.0-3.2 [facility] CenterMonocytes # (Auto)2019-08-22 06:00:00* Test Item Value Reference Range Interpretation Comments Monocytes # (Auto) (test code = 742-7) 0.6 0.2-0.8 [facility] CenterEosinophils # (Auto)2019-08-22 06:00:00* Test Item Value Reference Range Interpretation Comments Eosinophils # (Auto) (test code = 711-2) 0.0 0.0-0.4 [facility] CenterBasophils # (Auto)2019-08-22 06:00:00* Test Item Value Reference Range Interpretation Comments Basophils # (Auto) (test code = 704-7) 0.0 0.0-0.1 [facility] CenterAbsolute Immature Granulocyte (auto 2019-08-22 06:00:00* Test Item Value Reference Range Interpretation Comments Absolute Immature Granulocyte (auto (chiquita t code = Absolute Immature Granulocyte (auto) 0.05 0-0.1 [facility] CenterWhite Blood Svldv2002-25-77 06:00:00* Test Item Value Reference Range Interpretation Comments White Blood Count (test code = 6690-2) 9.60 4.8-10.8 [facility] CenterRed Blood Ypxbo5250-70-80 06:00:00* Test Item Value Reference Range Interpretation Comments Red Blood Count (test code = 789-8) 3.95 3.6-5.1 [facility] CenterHemoglobin2019-11-10 06:00:00* Test Item Value Reference Range Interpretation Comments Hemoglobin (test code = 90271-5) 11.6 12.0-16.0 L [facility] CenterHematocrit2019-11-10 06:00:00* Test Item Value Reference Range Interpretation Comments Hematocrit (test code = 4544-3) 34.0 34.2-44.1 L [facility] CenterMean Corpuscular Eezban1453-42-82 06:00:00* Test Item Value Reference Range Interpretation Comments Mean Corpuscular Volume (test code = 787-2) 86.1 81-99 [facility] CenterMean Corpuscular Iimcdonyux0807-37-77 06:00:00* Test Item Value Reference Range Interpretation Comments Mean Corpuscular Hemoglobin (test code = 785-6) 29.4 28-32 [facility] CenterMe Corpuscular Hemoglobin Concent 2019-08-22 06:00:00* Test Item Value Reference Range Interpretation Comments Mean Corpuscular Hemoglobin Concent (test code = 786-4) 34.1 31-35 [facility] CenterRed Cell Distribution Uqdff4172-14-44 06:00:00* Test Item Value Reference Range Interpretation Comments Red Cell Distribution Width (test code = 64456-6) 12.7 11.7 -14.4 [facility] CenterPlatelet Wvfgn2022-74-49 06:00:00* Test Item Value Reference Range Interpretation Comments Platelet Count (test code = 777-3) 319 140-360 [facility] CenterNeutrophils (%) (Auto)2019-08-22 06:00:00 * Test Item Value Reference Range Interpretation Comments Neutrophils (%) (Auto) (test code = 25824-6) 77.9 38.7-80.0 [facility] CenterLymphocytes (%) (Auto)2019-08-22 06:00:00 * Test Item Value Reference Range Interpretation Comments Lymphocytes (%) (Auto) (test code = 736-9) 15.3 18.0-39.1 L [facility] CenterMonocytes (%) (Auto)2019-08-22 06:00:00* Test Item Value Reference Range Interpretation Comments Monocytes (%) (Auto) (test code = 5905-5) 6.1 4.4-11.3 [facility] CenterEosinophils (%) (Auto)2019-08-22 06:00:00 * Test Item Value Reference Range Interpretation Comments Eosinophils (%) (Auto) (test code = 713-8) 0.0 0.0-6.0 [facility] CenterBasophils (%) (Auto)2019-08-22 06:00:00* Test Item Value Reference Range Interpretation Comments Basophils (%) (Auto) (test code = 706-2) 0.2 0.0-1.0 [facility] CenterIM GRANULOCYTES %2019-08-22 06:00:00* Test Item Value Reference Range Interpretation Comments IM GRANULOCYTES % (test code = IM GRANULOCYTES %) 0.5 0.0- 1.0 [facility] CenterNeutrophils # (Auto)2019-08-22 06:00:00* Test Item Value Reference Range Interpretation Comments Neutrophils # (Auto) (test code = 751-8) 7.5 2.1-6.9 H [facility] CenterLymphocytes # (Auto)2019-08-22 06:00:00* Test Item Value Reference Range Interpretation Comments Lymphocytes # (Auto) (test code = 02494-7) 1.5 1.0-3.2 [facility] CenterMonocytes # (Auto)2019-08-22 06:00:00* Test Item Value Reference Range Interpretation Comments Monocytes # (Auto) (test code = 742-7) 0.6 0.2-0.8 [facility] CenterEosinophils # (Auto)2019-08-22 06:00:00* Test Item Value Reference Range Interpretation Comments Eosinophils # (Auto) (test code = 711-2) 0.0 0.0-0.4 [facility] CenterBasophils # (Auto)2019-08-22 06:00:00* Test Item Value Reference Range Interpretation Comments Basophils # (Auto) (test code = 704-7) 0.0 0.0-0.1 [facility] CenterAbsolute Immature Granulocyte (auto 2019-08-22 06:00:00* Test Item Value Reference Range Interpretation Comments Absolute Immature Granulocyte (auto (chiquita t code = Absolute Immature Granulocyte (auto) 0.05 0-0.1 [facility]ellanderum or plasma trough vancomycin level at trough (mass/volume)2019-08-22 04:43:00* Test Item Value Reference Range Interpretation Comments Vancomycin Level Trough (test code = 4092-3) 4.5 5.0-10.0 [facility] LevellandHOULDER RIGHT 1 HJXN4201-98-37 19:34:00 [place] [address] Patient Name: YOLETTE URIBE MR #: [id number] : 1975 Age/Sex: 44/F Req #: [id number] Adm Physician: JAZLYN ARZATE MD Ordered by: Aby Urban SHIPS OR BARGES LOADER Report #: [id number] Location: [facility] Room/Bed: [facility] Procedure: [id number] DX/DUSTIN CISSE RIGHT 1 VIEW Exam Date: 08/20/19 Exam [...] JEMAL on 08/20/191935 COPY TO: ABY URBAN SHIPS OR BARGES LOADER CT BRAIN FO9310-90-67 19:29:00 [place] [address] Patient Name: YOLETTE URIBE MR #: [id number] : 1975 Age/Sex: 44/F Req #: [id number] Adm Physician: JAZLYN ARZATE MD Ordered by: Aby Urban SHIPS OR BARGES LOADER Report #: [id number] Location: [facility] Room/Bed: [facility] Procedure: [id number] CT/CT BRAIN WO Exam Date: 08/20/19 Exam [...] URBAN NP Bacteria identification in wound by oruegrr9012-64-20 08:10:00* Test Item Value Reference Range Interpretation Comments Wound Culture (test code = 6462-6) STAPHYLOCOCCUS AUREUS-MRSA [facility] CenterTotal Jkbjmkfaq1364-15-15 04:25:00* Test Item Value Reference Range Interpretation Comments Total Bilirubin (test code = 1975-2) 0.2 0.2-1.2 [facility] CenterAspartate Amino Transf (AST/SGOT) 2019-08-20 04:25:00* Test Item Value Reference Range Interpretation Comments Aspartate Amino Transf (AST/SGOT) (test code = Aspartate Amino Transf (AST/SGOT)) 15 5-34 [facility] CenterAlanine Aminotransferase (ALT/SGPT) 2019-08-20 04:25:00* Test Item Value Reference Range Interpretation Comments Alanine Aminotransferase (ALT/SGPT) (test code = 1742-6) 10 0-55 [facility] CenterTotal Rwzhwtp9905-19-56 04:25:00* Test Item Value Reference Range Interpretation Comments Total Protein (test code = 2885-2) 6.5 6.5-8.1 [facility] CenterAlbumin2019-11-08 04:25:00* Test Item Value Reference Range Interpretation Comments Albumin (test code = 1751-7) 2.9 3.5-5.0 L [facility] CenterGlobulin2019-11-08 04:25:00* Test Item Value Reference Range Interpretation Comments Globulin (test code = 77211-1) 3.6 2.3-3.5 H [facility] CenterAlbumin/Globulin Kgust3691-05-50 04:25:00 * Test Item Value Reference Range Interpretation Comments Albumin/Globulin Ratio (test code = 1759-0) 0.8 0.8-2.0 [facility] CenterAlkaline Vzaqbguwijs4735-29-39 04:25:00* Test Item Value Reference Range Interpretation Comments Alkaline Phosphatase (test code = 6768-6) 121 40-150 [facility] CenterTotal Zsfcxhswk4576-89-59 04:25:00* Test Item Value Reference Range Interpretation Comments Total Bilirubin (test code = 1975-2) 0.2 0.2-1.2 [facility] CenterAspartate Amino Transf (AST/SGOT) 2019-08-20 04:25:00* Test Item Value Reference Range Interpretation Comments Aspartate Amino Transf (AST/SGOT) (test code = Aspartate Amino Transf (AST/SGOT)) 15 5-34 [facility] CenterAlanine Aminotransferase (ALT/SGPT) 2019-08-20 04:25:00* Test Item Value Reference Range Interpretation Comments Alanine Aminotransferase (ALT/SGPT) (test code = 1742-6) 10 0-55 [facility] Luglbkh5690-29-33 04:25:00* Test Item Value Reference Range Interpretation Comments Total Protein (test code = 2885-2) 6.5 6.5-8.1 [facility] CenterAlbumin2019-11-08 04:25:00* Test Item Value Reference Range Interpretation Comments Albumin (test code = 1751-7) 2.9 3.5-5.0 L [facility] CenterGlobulin2019-11-08 04:25:00* Test Item Value Reference Range Interpretation Comments Globulin (test code = 90240-0) 3.6 2.3-3.5 H [facility] CenterAlbumin/Globulin Laewr5403-95-18 04:25:00 * Test Item Value Reference Range Interpretation Comments Albumin/Globulin Ratio (test code = 1759-0) 0.8 0.8-2.0 [facility] CenterAlkaline Gyxcnzatnwr8061-36-08 04:25:00* Test Item Value Reference Range Interpretation Comments Alkaline Phosphatase (test code = 6768-6) 121 40-150 [facility] CenterTotal Bvsfsmahx9418-74-17 04:25:00* Test Item Value Reference Range Interpretation Comments Total Bilirubin (test code = 1975-2) 0.2 0.2-1.2 [facility] CenterAspartate Amino Transf (AST/SGOT) 2019-08-20 04:25:00* Test Item Value Reference Range Interpretation Comments Aspartate Amino Transf (AST/SGOT) (test code = Aspartate Amino Transf (AST/SGOT)) 15 5-34 [facility] CenterAlanine Aminotransferase (ALT/SGPT) 2019-08-20 04:25:00* Test Item Value Reference Range Interpretation Comments Alanine Aminotransferase (ALT/SGPT) (test code = 1742-6) 10 0-55 [facility] CenterTotal Txwpkxx8480-18-11 04:25:00* Test Item Value Reference Range Interpretation Comments Total Protein (test code = 2885-2) 6.5 6.5-8.1 [facility] CenterAlbumin2019-11-08 04:25:00* Test Item Value Reference Range Interpretation Comments Albumin (test code = 1751-7) 2.9 3.5-5.0 L [facility] CenterGlobulin2019-11-08 04:25:00* Test Item Value Reference Range Interpretation Comments Globulin (test code = 14818-4) 3.6 2.3-3.5 H [facility] CenterAlbumin/Globulin Ymyxy7997-56-10 04:25:00 * Test Item Value Reference Range Interpretation Comments Albumin/Globulin Ratio (test code = 1759-0) 0.8 0.8-2.0 [facility] CenterAlkaline Wfzxgsamaws9785-15-14 04:25:00* Test Item Value Reference Range Interpretation Comments Alkaline Phosphatase (test code = 6768-6) 121 40-150 [facility] CenterCT THORACIC SPINE J2724-81-06 12:56:00 [facility] [address] [place] [address] Patient Name: YOLETTE URIBE MR #: [id number] : 1975 Age/Sex: 44/F Req #: [id number] Adm Physician: Ordered by: CROW CARLOS DO Report #: [id number] Location: ER Room/Bed: Procedure: [id number] CT/CT THORACIC SPINE W Exam Date: 08/19/19 [...] TO: CROW CARLOS DO CT LUMBAR SPINE NQ3305-06-99 12:56:00 [place] [address] Patient Name: YOLETTE URIBE MR #: [id number] : 1975 Age/Sex: 44/F Req #: [id number] Adm Physician: Ordered by: CROW CARLOS DO Report #: [id number] Location: ER Room/Bed: Procedure: [id number] CT/CT LUMBAR SPINE WO Exam Date: 08/19/19 [...] COPY TO: CROW BOSTON DO Creatine Kinase [id number] 10:13:00* Test Item Value Reference Range Interpretation Comments Creatine Kinase MB (test code = 36993-4) < 1.00 0-4.3 [facility] CenterTroponin V7542-07-21 10:13:00* Test Item Value Reference Range Interpretation Comments Troponin I (test code = 08708-2) < 0.05 0.0-0.40 [facility] CenterCreatine Kinase MC5805-81-25 10:13:00* Test Item Value Reference Range Interpretation Comments Creatine Kinase MB (test code = 75765-9) < 1.00 0-4.3 [place] 21717019-11-07 10:13:00* Test Item Value Reference Range Interpretation Comments Troponin I (test code = 31679-3) < 0.05 0.0-0.40 [facility] CenterCreatine Kinase JK2353-79-95 10:13:00* Test Item Value Reference Range Interpretation Comments Creatine Kinase MB (test code = 56959-1) < 1.00 0-4.3 [place] 21717019-11-07 10:13:00* Test Item Value Reference Range Interpretation Comments Troponin I (test code = 90314-1) < 0.05 0.0-0.40 [facility] CenterCreatine Wjigrp6473-83-30 09:55:00* Test Item Value Reference Range Interpretation Comments Creatine Kinase (test code = 2157-6) 24 29-168 L [facility] CenterCreatine Ltdqke2097-08-57 09:55:00* Test Item Value Reference Range Interpretation Comments Creatine Kinase (test code = 2157-6) 24 29-168 L [facility] CenterCreatine Yeqonl7457-58-02 09:55:00* Test Item Value Reference Range Interpretation Comments Creatine Kinase (test code = 2157-6) 24 29-168 L [facility] CenterLactic Acid Mmgig7446-72-33 09:47:00* Test Item Value Reference Range Interpretation Comments Lactic Acid Level (test code = Lactic Acid Level) 1.6 0.5- 2.0 [facility] CenterLactic Acid Txqxq8532-14-55 09:47:00* Test Item Value Reference Range Interpretation Comments Lactic Acid Level (test code = Lactic Acid Level) 1.6 0.5- 2.0 [facility] CenterLactic Acid Ubzxy1276-71-79 09:47:00* Test Item Value Reference Range Interpretation Comments Lactic Acid Level (test code = Lactic Acid Level) 1.6 0.5- 2.0 [facility] CenterLactic Acid Tbhbb2381-04-35 09:47:00* Test Item Value Reference Range Interpretation Comments Lactic Acid Level (test code = Lactic Acid Level) 1.6 0.5- 2.0 [facility] CenterUrine Opiates Vezshx6627-17-55 09:39:00* Test Item Value Reference Range Interpretation Comments Urine Opiates Screen (test code = 85566-8) NEGATIVE NEGATIVE ALL TESTS PERFORMED MANUALLY ON [employer] TOX/SEE TESTMethodist Dallas Medical CenterUrine Barbiturates Ptiywt8124-19-84 09:39:00* Test Item Value Reference Range Interpretation Comments Urine Barbiturates Screen (test code = 912608782) NEGATIVE NEGA TIVE [facility] CenterUrine Phencyclidine Buamdl9244-38-56 09:39:00* Test Item Value Reference Range Interpretation Comments Urine Phencyclidine Screen (test code = 37686-8) NEGATIVE NEGAT ЕЛЕНА [facility] CenterU[facility] Amphetamines Ocwsrc3961-27-62 09:39:00* Test Item Value Reference Range Interpretation Comments Urine Amphetamines Screen (test code = 53183-5) NEGATIVE NEGATI VE [facility] CenterU[facility] Methamphetamines Jsxutq3818-27-84 09:39:00* Test Item Value Reference Range Interpretation Comments Urine Methamphetamines Screen (test code = Urine Metha mphetamines Screen) NEGATIVE NEGATIVE [facility] CenterU[facility] Benzodiazepines Rdcedd6346-79-50 09:39:00* Test Item Value Reference Range Interpretation Comments Urine Benzodiazepines Screen (test code = 63837-2) NEGATIVE NEG ATIVE [facility] CenterU[facility] Cocaine Ahdgar8646-60-76 09:39:00* Test Item Value Reference Range Interpretation Comments Urine Cocaine Screen (test code = 3398-5) NEGATIVE NEGATIVE [facility] CenterU[facility] Cannabinoids Zvtorn5224-80-23 09:39:00* Test Item Value Reference Range Interpretation Comments Urine Cannabinoids Screen (test code = 01458-3) NEGATIVE NEGATI VE THESE RESULTS ARE FOR MEDICAL TREATMENT ONLYTHIS REPORT CONTAINS UNCONFIR MED SCREENING RESULTS*POSITIVE RESULTS WILL BE CONFIRMED BY REFERENCE LAB UPON R EQUEST CUT-OFFDRUG CLASS CONCENTRATION ng/mLAmphetamines 1000Methamphetamines 1000Cocaine 300Opiate 300Phencyc lidine 25Cannabinoid 50Barbiturates 300Benzodiazepine 300Methadone 300[facility] CenterUrine Methadone Hfrgfd7044-00-23 09:39:00* Test Item Value Reference Range Interpretation Comments Urine Methadone Screen (test code = 37560-2) NEGATIVE NEGATIVE THESE RESULTS ARE FOR MEDICAL TREATMENT ONLYTHIS REPORT CONTAINS UNCONFIR MED SCREENING RESULTS*POSITIVE RESULTS WILL BE CONFIRMED BY REFERENCE LAB UPON R EQUEST CUT-OFFDRUG CLASS CONCENTRATION ng/mLAmphetamines 1000Methamphetamines 1000Cocaine Metabolite 300Opiate 300Phencyc lidine 25Cannabinoid 50Barbiturates 300Benzodiazepine 300Methadone 300[facility] CenterUrine Nwvn4685-53-96 09:39:00* Test Item Value Reference Range Interpretation Comments Urine Test (test code = 2106-3) NEGATIVE NEGATIVE [facility] CenterUrine Opiates Vawbff4527-29-32 09:39:00* Test Item Value Reference Range Interpretation Comments Urine Opiates Screen (test code = 50038-1) NEGATIVE NEGATIVE ALL TESTS PERFORMED MANUALLY ON Avuxi TOX/SEE TESTMethod[facility] Medical CenterUrine Barbiturates Askaow3667-60-92 09:39:00* Test Item Value Reference Range Interpretation Comments Urine Barbiturates Screen (test code = 449117462) NEGATIVE NEGA TIVE [facility] CenterUrine Phencyclidine Cxhfox3740-59-62 09:39:00* Test Item Value Reference Range Interpretation Comments Urine Phencyclidine Screen (test code = 98027-7) NEGATIVE NEGAT ЕЛЕНА [facility] CenterUrine Amphetamines Ilahhi7591-46-42 09:39:00* Test Item Value Reference Range Interpretation Comments Urine Amphetamines Screen (test code = 99728-9) NEGATIVE NEGATI VE [facility] CenterUrine Methamphetamines Foflpp8828-07-28 09:39:00* Test Item Value Reference Range Interpretation Comments Urine Methamphetamines Screen (test code = Urine Metha mphetamines Screen) NEGATIVE NEGATIVE [facility] CenterUrine Benzodiazepines Sqyvpv5285-51-55 09:39:00* Test Item Value Reference Range Interpretation Comments Urine Benzodiazepines Screen (test code = 72503-7) NEGATIVE NEG ATIVE [facility] CenterUrine Cocaine Jtrlfa0645-42-35 09:39:00* Test Item Value Reference Range Interpretation Comments Urine Cocaine Screen (test code = 3398-5) NEGATIVE NEGATIVE [facility] CenterUrine Cannabinoids Thpyjd4922-36-07 09:39:00* Test Item Value Reference Range Interpretation Comments Urine Cannabinoids Screen (test code = 53198-5) NEGATIVE NEGATI VE THESE RESULTS ARE FOR MEDICAL TREATMENT ONLYTHIS REPORT CONTAINS UNCONFIR MED SCREENING RESULTS*POSITIVE RESULTS WILL BE CONFIRMED BY REFERENCE LAB UPON R EQUEST CUT-OFFDRUG CLASS CONCENTRATION ng/mLAmphetamines 1000Methamphetamines 1000Cocaine 300Opiate 300Phencyc lidine 25Cannabinoid 50Barbiturates 300Benzodiazepine 300Methadone 300[facility] CenterUrine Methadone Xdbzuc0988-96-84 09:39:00* Test Item Value Reference Range Interpretation Comments Urine Methadone Screen (test code = 99441-7) NEGATIVE NEGATIVE THESE RESULTS ARE FOR MEDICAL TREATMENT ONLYTHIS REPORT CONTAINS UNCONFIR MED SCREENING RESULTS*POSITIVE RESULTS WILL BE CONFIRMED BY REFERENCE LAB UPON R EQUEST CUT-OFFDRUG CLASS CONCENTRATION ng/mLAmphetamines 1000Methamphetamines 1000Cocaine Metabolite 300Opiate 300Phencyc lidine 25Cannabinoid 50Barbiturates 300Benzodiazepine 300Methadone 300[facility] CenterUrine Pnto4613-50-84 09:39:00* Test Item Value Reference Range Interpretation Comments Urine Test (test code = 2106-3) NEGATIVE NEGATIVE [facility] CenterUrine Opiates Nenpoq2223-17-42 09:39:00* Test Item Value Reference Range Interpretation Comments Urine Opiates Screen (test code = 00755-0) NEGATIVE NEGATIVE ALL TESTS PERFORMED MANUALLY ON Avuxi TOX/SEE TESTMethod[facility] Medical CenterUrine Barbiturates Ptmhfv8133-83-11 09:39:00* Test Item Value Reference Range Interpretation Comments Urine Barbiturates Screen (test code = 291798854) NEGATIVE NEGA TIVE [facility] CenterUrine Phencyclidine Uixrsn5439-08-57 09:39:00* Test Item Value Reference Range Interpretation Comments Urine Phencyclidine Screen (test code = 85348-4) NEGATIVE NEGAT ЕЛЕНА [facility] CenterUrine Amphetamines Wpygdb4420-26-53 09:39:00* Test Item Value Reference Range Interpretation Comments Urine Amphetamines Screen (test code = 58128-6) NEGATIVE NEGATI VE [facility] CenterUrine Methamphetamines Xfevxb5165-12-72 09:39:00* Test Item Value Reference Range Interpretation Comments Urine Methamphetamines Screen (test code = Urine Metha mphetamines Screen) NEGATIVE NEGATIVE [facility] CenterUrine Benzodiazepines Cjbvlo9863-72-44 09:39:00* Test Item Value Reference Range Interpretation Comments Urine Benzodiazepines Screen (test code = 43395-5) NEGATIVE NEG ATIVE [facility] CenterUrine Cocaine Ierqjq3538-59-09 09:39:00* Test Item Value Reference Range Interpretation Comments Urine Cocaine Screen (test code = 3398-5) NEGATIVE NEGATIVE [facility] CenterUrine Cannabinoids Ovfaov4990-57-05 09:39:00* Test Item Value Reference Range Interpretation Comments Urine Cannabinoids Screen (test code = 69196-8) NEGATIVE NEGATI VE THESE RESULTS ARE FOR MEDICAL TREATMENT ONLYTHIS REPORT CONTAINS UNCONFIR MED SCREENING RESULTS*POSITIVE RESULTS WILL BE CONFIRMED BY REFERENCE LAB UPON R EQUEST CUT-OFFDRUG CLASS CONCENTRATION ng/mLAmphetamines 1000Methamphetamines 1000Cocaine 300Opiate 300Phencyc lidine 25Cannabinoid 50Barbiturates 300Benzodiazepine 300Methadone 300[facility] Dftaqk7795-48-18 09:39:00* Test Item Value Reference Range Interpretation Comments Urine Methadone Screen (test code = 68280-0) NEGATIVE NEGATIVE THESE RESULTS ARE FOR MEDICAL TREATMENT ONLYTHIS REPORT CONTAINS UNCONFIR MED SCREENING RESULTS*POSITIVE RESULTS WILL BE CONFIRMED BY REFERENCE LAB UPON R EQUEST CUT-OFFDRUG CLASS CONCENTRATION ng/mLAmphetamines 1000Methamphetamines 1000Cocaine Metabolite 300Opiate 300Phencyc lidine 25Cannabinoid 50Barbiturates 300Benzodiazepine 300Methadone 300[facility]landUrine Bjta1940-79-70 09:39:00* Test Item Value Reference Range Interpretation Comments Urine Test (test code = 2106-3) NEGATIVE NEGATIVE [facility] CenterUrine Opiates Qcijik4928-61-02 09:39:00* Test Item Value Reference Range Interpretation Comments Urine Opiates Screen (test code = 86562-0) NEGATIVE NEGATIVE ALL TESTS PERFORMED MANUALLY ON Avuxi TOX/SEE TESTMethod[facility] CenterUrine Barbiturates Btmryp2679-96-04 09:39:00* Test Item Value Reference Range Interpretation Comments Urine Barbiturates Screen (test code = 724402090) NEGATIVE NEGA TIVE [facility] CenterUrine Phencyclidine Ywdqru7819-01-81 09:39:00* Test Item Value Reference Range Interpretation Comments Urine Phencyclidine Screen (test code = 60705-9) NEGATIVE NEGAT ЕЛЕНА [facility] CenterUrine Amphetamines Osotgd9422-69-39 09:39:00* Test Item Value Reference Range Interpretation Comments Urine Amphetamines Screen (test code = 92044-5) NEGATIVE NEGATI VE [facility] CenterUrine Methamphetamines Arzxpk4113-48-28 09:39:00* Test Item Value Reference Range Interpretation Comments Urine Methamphetamines Screen (test code = Urine Metha mphetamines Screen) NEGATIVE NEGATIVE [facility] CenterUrine Benzodiazepines Pxiyfb1123-45-03 09:39:00* Test Item Value Reference Range Interpretation Comments Urine Benzodiazepines Screen (test code = 58024-2) NEGATIVE NEG ATIVE [facility] CenterUrine Cocaine Laljpp3335-17-21 09:39:00* Test Item Value Reference Range Interpretation Comments Urine Cocaine Screen (test code = 3398-5) NEGATIVE NEGATIVE [facility] CenterUrine Cannabinoids Gifsng4102-22-56 09:39:00* Test Item Value Reference Range Interpretation Comments Urine Cannabinoids Screen (test code = 13305-6) NEGATIVE NEGATI VE THESE RESULTS ARE FOR MEDICAL TREATMENT ONLYTHIS REPORT CONTAINS UNCONFIR MED SCREENING RESULTS*POSITIVE RESULTS WILL BE CONFIRMED BY REFERENCE LAB UPON R EQUEST CUT-OFFDRUG CLASS CONCENTRATION ng/mLAmphetamines 1000Methamphetamines 1000Cocaine 300Opiate 300Phencyc lidine 25Cannabinoid 50Barbiturates 300Benzodiazepine 300Methadone 300[facility] Methadone Flwlvs8483-10-70 09:39:00* Test Item Value Reference Range Interpretation Comments Urine Methadone Screen (test code = 15545-5) NEGATIVE NEGATIVE THESE RESULTS ARE FOR MEDICAL TREATMENT ONLYTHIS REPORT CONTAINS UNCONFIR MED SCREENING RESULTS*POSITIVE RESULTS WILL BE CONFIRMED BY REFERENCE LAB UPON R EQUEST CUT-OFFDRUG CLASS CONCENTRATION ng/mLAmphetamines 1000Methamphetamines 1000Cocaine Metabolite 300Opiate 300Phencyc lidine 25Cannabinoid 50Barbiturates 300Benzodiazepine 300Methadone 300[facility] CenterUrine Qlup6097-03-19 09:39:00* Test Item Value Reference Range Interpretation Comments Urine Test (test code = 2106-3) NEGATIVE NEGATIVE [facility] CenterBlood jccpfkk2979-88-93 08:50:00* Test Item Value Reference Range Interpretation Comments Blood Culture (test code = 05353756) NO GROWTH AFTER 5 DAYS, FINAL REPORT [facility] CenterUrine human chorionic gonadotropin (hCG) hzlsslgzr2002-62-24 07:52:00* Test Item Value Reference Range Interpretation Comments Urine Test (test code = 2106-3) NEGATIVE NEGATIVE [facility] CenterBedside Zmsyunx9375-19-70 02:32:00* Test Item Value Reference Range Interpretation Comments Bedside Glucose (test code = 41984-8) 391 70-120 H Meter ID: [id number] Dallas Medical CenterWhite Blood Count 2019-08-17 01:16:00* Test Item Value Reference Range Interpretation Comments White Blood Count (test code = 6690-2) 11.54 4.8-10.8 H [facility] CenterRed Blood Dftii3842-97-29 01:16:00* Test Item Value Reference Range Interpretation Comments Red Blood Count (test code = 789-8) 4.51 3.6-5.1 [facility] CenterHemoglobin2019-11-05 01:16:00* Test Item Value Reference Range Interpretation Comments Hemoglobin (test code = 31506-9) 13.3 12.0-16.0 [facility] CenterHematocrit2019-11-05 01:16:00* Test Item Value Reference Range Interpretation Comments Hematocrit (test code = 4544-3) 38.4 34.2-44.1 [facility] CenterMean Corpuscular Znlqdm7296-22-34 01:16:00* Test Item Value Reference Range Interpretation Comments Mean Corpuscular Volume (test code = 787-2) 85.1 81-99 [facility] CenterMean Corpuscular Ovbyubcpcn2650-60-04 01:16:00* Test Item Value Reference Range Interpretation Comments Mean Corpuscular Hemoglobin (test code = 785-6) 29.5 28-32 [facility] Hem[facility] Concent 2019-08-17 01:16:00* Test Item Value Reference Range Interpretation Comments Mean Corpuscular Hemoglobin Concent (test code = 786-4) 34.6 31-35 [facility] CenterRed Cell Distribution Gwedn0165-49-69 01:16:00* Test Item Value Reference Range Interpretation Comments Red Cell Distribution Width (test code = 58795-1) 12.6 11.7 -14.4 [facility] CenterPlatelet Ryzvx9368-85-14 01:16:00* Test Item Value Reference Range Interpretation Comments Platelet Count (test code = 777-3) 227 140-360 [facility] CenterNeutrophils (%) (Auto)2019-08-17 01:16:00 * Test Item Value Reference Range Interpretation Comments Neutrophils (%) (Auto) (test code = 51259-3) 69.9 38.7-80.0 [facility] CenterLymphocytes (%) (Auto)2019-08-17 01:16:00 * Test Item Value Reference Range Interpretation Comments Lymphocytes (%) (Auto) (test code = 736-9) 22.5 18.0-39.1 [facility] CenterMonocytes (%) (Auto)2019-08-17 01:16:00* Test Item Value Reference Range Interpretation Comments Monocytes (%) (Auto) (test code = 5905-5) 6.3 4.4-11.3 [facility] CenterEosinophils (%) (Auto)2019-08-17 01:16:00 * Test Item Value Reference Range Interpretation Comments Eosinophils (%) (Auto) (test code = 713-8) 0.7 0.0-6.0 [facility] CenterBasophils (%) (Auto)2019-08-17 01:16:00* Test Item Value Reference Range Interpretation Comments Basophils (%) (Auto) (test code = 706-2) 0.3 0.0-1.0 [facility] CenterIM GRANULOCYTES %2019-08-17 01:16:00* Test Item Value Reference Range Interpretation Comments IM GRANULOCYTES % (test code = IM GRANULOCYTES %) 0.3 0.0- 1.0 [facility] CenterNeutrophils # (Auto)2019-08-17 01:16:00* Test Item Value Reference Range Interpretation Comments Neutrophils # (Auto) (test code = 751-8) 8.1 2.1-6.9 H [facility] CenterLymphocytes # (Auto)2019-08-17 01:16:00* Test Item Value Reference Range Interpretation Comments Lymphocytes # (Auto) (test code = 53571-4) 2.6 1.0-3.2 [facility] CenterMonocytes # (Auto)2019-08-17 01:16:00* Test Item Value Reference Range Interpretation Comments Monocytes # (Auto) (test code = 742-7) 0.7 0.2-0.8 [facility] CenterEosinophils # (Auto)2019-08-17 01:16:00* Test Item Value Reference Range Interpretation Comments Eosinophils # (Auto) (test code = 711-2) 0.1 0.0-0.4 [facility] CenterBasophils # (Auto)2019-08-17 01:16:00* Test Item Value Reference Range Interpretation Comments Basophils # (Auto) (test code = 704-7) 0.0 0.0-0.1 [facility] CenterAbsolute Immature Granulocyte (auto 2019-08-17 01:16:00* Test Item Value Reference Range Interpretation Comments Absolute Immature Granulocyte (auto (chiquita t code = Absolute Immature Granulocyte (auto) 0.04 0-0.1 [facility] Levellandodium Islos2182-13-39 00:34:00* Test Item Value Reference Range Interpretation Comments Sodium Level (test code = 2951-2) 132 136-145 L [facility] CenterPotassium Eeuqq4230-13-67 00:34:00* Test Item Value Reference Range Interpretation Comments Potassium Level (test code = 2823-3) 4.0 3.5-5.1 [facility] CenterChloride Btvcn9283-61-93 00:34:00* Test Item Value Reference Range Interpretation Comments Chloride Level (test code = 2075-0) 93 98-107 L [facility] CenterCarbon Dioxide Jpryb2854-86-46 00:34:00* Test Item Value Reference Range Interpretation Comments Carbon Dioxide Level (test code = 2028-9) 23 22-29 [facility] CenterAnion Ymt5503-66-87 00:34:00* Test Item Value Reference Range Interpretation Comments Anion Gap (test code = 62349-6) 20.0 8-16 H [facility] CenterBlood Urea Asvdnnyh7561-09-90 00:34:00* Test Item Value Reference Range Interpretation Comments Blood Urea Nitrogen (test code = 3094-0) 7 7-26 [facility] CenterCreatinine2019-11-05 00:34:00* Test Item Value Reference Range Interpretation Comments Creatinine (test code = 2160-0) 0.93 0.57-1.11 [facility] CenterBUN/Creatinine Fohbc0977-09-09 00:34:00* Test Item Value Reference Range Interpretation Comments BUN/Creatinine Ratio (test code = 3097-3) 8 6-25 [facility] CenterEstimat Glomerular Filtration Rate 2019-08-17 00:34:00* Test Item Value Reference Range Interpretation Comments Estimat Glomerular Filtration Rate (test code = 595247466) > 60 >60 Ranges were taken from the National Kidney Disease Education Program and the Replaced by [facility] Foundation literature.Reference ranges:60 or greater: Wuablt76-44 ( for 3 consecutive months): Chronic kidney disease 15 or less: Kidney failureMethodist Dallas Medical CenterGlucose Jotub7291-59-31 00:34:00* Test Item Value Reference Range Interpretation Comments Glucose Level (test code = ULP8495) 688 74-118 HH Results repeated and called to JOJO ROSA RN at 0033 on 08/17/[address] Read back and verified.[facility] CenterCalcium Dcbrl7713-13-43 00:34:00* Test Item Value Reference Range Interpretation Comments Calcium Level (test code = 60123-3) 10.0 8.4-10.2 [facility] Flkolsa3547-27-16 23:29:00* Test Item Value Reference Range Interpretation Comments Bedside Glucose (test code = 74942-4) 300 70-120 H Meter ID: [id number]. [facility] Glucose 2019-06-17 23:29:00* Test Item Value Reference Range Interpretation Comments Bedside Glucose (test code = 59060-9) 300 70-120 H Meter ID: [id number] Dallas Medical CenterBlood Urea Nitrogen 2019-06-17 22:47:00* Test Item Value Reference Range Interpretation Comments Blood Urea Nitrogen (test code = 3094-0) 05-07 [facility] CenterBUN/Creatinine Igjcm1798-18-62 22:47:00* Test Item Value Reference Range Interpretation Comments BUN/Creatinine Ratio (test code = 3097-3) 04-06 [facility] CenterBlood Urea Eripgxoc6677-74-24 22:47:00* Test Item Value Reference Range Interpretation Comments Blood Urea Nitrogen (test code = 3094-0) 05-07 [facility] CenterBUN/Creatinine Pgrkd6340-78-60 22:47:00* Test Item Value Reference Range Interpretation Comments BUN/Creatinine Ratio (test code = 3097-3) 04-06 [facility]andodium Uyuml6042-18-40 22:28:00* Test Item Value Reference Range Interpretation Comments Sodium Level (test code = 2951-2) 132 136-145 L [facility] CenterPotassium Qgdyy8462-55-31 22:28:00* Test Item Value Reference Range Interpretation Comments Potassium Level (test code = 2823-3) 4.2 3.5-5.1 [facility] CenterChloride Hcabn3350-12-35 22:28:00* Test Item Value Reference Range Interpretation Comments Chloride Level (test code = 2075-0) 93 98-107 L [facility] CenterCarbon Dioxide Tpaio4660-63-95 22:28:00* Test Item Value Reference Range Interpretation Comments Carbon Dioxide Level (test code = 2028-9) 29 22-29 [facility] CenterAnion Dhk7129-76-25 22:28:00* Test Item Value Reference Range Interpretation Comments Anion Gap (test code = 51866-9) 14.2 8-16 [facility] CenterCreatinine2019-09-05 22:28:00* Test Item Value Reference Range Interpretation Comments Creatinine (test code = 2160-0) 0.83 0.57-1.11 [facility] CenterEstimat Glomerular Filtration Rate 2019-06-17 22:28:00* Test Item Value Reference Range Interpretation Comments Estimat Glomerular Filtration Rate (test code = 722608757) > 60 >60 Ranges were taken from the National Kidney Disease Education Program and the [place] [place] Kid[employer] Foundation literature.Reference ranges:60 or greater: Okmlay40-56 ( for 3 consecutive months): Chronic kidney disease 15 or less: Kidney failureMethodist Dallas Medical CenterGlucose Hwkdb5149-93-87 22:28:00* Test Item Value Reference Range Interpretation Comments Glucose Level (test code = XGV2973) 534 74-118 Results repeated and called to SHEKHAR ROSA at 2227 on 06/17/19 by MARIEL TSANG. Read back and verified.[facility] CenterCalcium Mhcbw1367-49-77 22:28:00* Test Item Value Reference Range Interpretation Comments Calcium Level (test code = 31243-5) 10.7 8.4-10.2 H [facility] CenterMagnesium Cbtkl9160-13-52 22:28:00* Test Item Value Reference Range Interpretation Comments Magnesium Level (test code = 24625-5) 1.6 1.3-2.1 [facility] CenterTotal Uxfmiullg2968-38-00 22:28:00* Test Item Value Reference Range Interpretation Comments Total Bilirubin (test code = 1975-2) 0.2 0.2-1.2 [facility] CenterAspartate Amino Transf (AST/SGOT) 2019-06-17 22:28:00* Test Item Value Reference Range Interpretation Comments Aspartate Amino Transf (AST/SGOT) (test code = Aspartate Amino Transf (AST/SGOT)) 9 5-34 [facility] CenterAlanine Aminotransferase (ALT/SGPT) 2019-06-17 22:28:00* Test Item Value Reference Range Interpretation Comments Alanine Aminotransferase (ALT/SGPT) (test code = 1742-6) 11 0-55 [facility] CenterTotal Wzdrrya9590-73-22 22:28:00* Test Item Value Reference Range Interpretation Comments Total Protein (test code = 2885-2) 7.0 6.5-8.1 [facility] CenterAlbumin2019-09-05 22:28:00* Test Item Value Reference Range Interpretation Comments Albumin (test code = 1751-7) 3.7 3.5-5.0 [facility] CenterGlobulin2019-09-05 22:28:00* Test Item Value Reference Range Interpretation Comments Globulin (test code = 87301-8) 3.3 2.3-3.5 [facility] CenterAlbumin/Globulin Fdoqk8425-70-15 22:28:00 * Test Item Value Reference Range Interpretation Comments Albumin/Globulin Ratio (test code = 1759-0) 1.1 0.8-2.0 [facility] CenterAlkaline Hnglfdzquoa1945-49-78 22:28:00* Test Item Value Reference Range Interpretation Comments Alkaline Phosphatase (test code = 6768-6) 132 40-150 [facility]andodium Kjxbj2647-75-97 22:28:00* Test Item Value Reference Range Interpretation Comments Sodium Level (test code = 2951-2) 132 136-145 L [facility] CenterPotassium Ipuao6948-52-28 22:28:00* Test Item Value Reference Range Interpretation Comments Potassium Level (test code = 2823-3) 4.2 3.5-5.1 [facility] CenterChloride Brbir4231-39-82 22:28:00* Test Item Value Reference Range Interpretation Comments Chloride Level (test code = 2075-0) 93 98-107 L [facility] CenterCarbon Dioxide Qcmgi3782-33-12 22:28:00* Test Item Value Reference Range Interpretation Comments Carbon Dioxide Level (test code = 2028-9) 29 22-29 [facility] CenterAnion Qad5462-19-97 22:28:00* Test Item Value Reference Range Interpretation Comments Anion Gap (test code = 07193-7) 14.2 8-16 [facility] CenterCreatinine2019-09-05 22:28:00* Test Item Value Reference Range Interpretation Comments Creatinine (test code = 2160-0) 0.83 0.57-1.11 [facility] CenterEstimat Glomerular Filtration Rate 2019-06-17 22:28:00* Test Item Value Reference Range Interpretation Comments Estimat Glomerular Filtration Rate (test code = 726721266) > 60 >60 Ranges were taken from the National Kidney Disease Education Program and the [place] Kidney Foundation literature.Reference ranges:60 or greater: Xwiqkb27-39 ( for 3 consecutive months): Chronic kidney disease 15 or less: Kidney failureMethodist Dallas Medical CenterGlucose Ytgcz1153-69-47 22:28:00* Test Item Value Reference Range Interpretation Comments Glucose Level (test code = HJW0518) 534 74-118 HH Results repeated and called to SHEKHAR ROSA at 2227 on 06/17/19 by MARIEL TSANG. Read back and verified.[facility] CenterCalcium Bgwlp1826-05-53 22:28:00* Test Item Value Reference Range Interpretation Comments Calcium Level (test code = 27274-6) 10.7 8.4-10.2 H [facility] CenterMagnesium Shsjr0640-00-99 22:28:00* Test Item Value Reference Range Interpretation Comments Magnesium Level (test code = 61256-9) 1.6 1.3-2.1 [facility] CenterTotal Ramatxtuj5581-31-25 22:28:00* Test Item Value Reference Range Interpretation Comments Total Bilirubin (test code = 1975-2) 0.2 0.2-1.2 [facility] CenterAspartate Amino Transf (AST/SGOT) 2019-06-17 22:28:00* Test Item Value Reference Range Interpretation Comments Aspartate Amino Transf (AST/SGOT) (test code = Aspartate Amino Transf (AST/SGOT)) 9 5-34 [facility] CenterAl[facility] Aminotransferase (ALT/SGPT) 2019-06-17 22:28:00* Test Item Value Reference Range Interpretation Comments Alanine Aminotransferase (ALT/SGPT) (test code = 1742-6) 11 0-55 [facility] CenterTotal Nldvnjx5881-11-86 22:28:00* Test Item Value Reference Range Interpretation Comments Total Protein (test code = 2885-2) 7.0 6.5-8.1 [facility] CenterAlbumin2019-09-05 22:28:00* Test Item Value Reference Range Interpretation Comments Albumin (test code = 1751-7) 3.7 3.5-5.0 [facility] CenterGlobulin2019-09-05 22:28:00* Test Item Value Reference Range Interpretation Comments Globulin (test code = 14548-8) 3.3 2.3-3.5 [facility] CenterAlbumin/Globulin Liwhe0440-01-92 22:28:00 * Test Item Value Reference Range Interpretation Comments Albumin/Globulin Ratio (test code = 1759-0) 1.1 0.8-2.0 [facility] CenterAlkaline Rfjouuwgmhr8667-45-55 22:28:00* Test Item Value Reference Range Interpretation Comments Alkaline Phosphatase (test code = 6768-6) 132 40-150 [facility] CenterMagnesium Obnke8289-61-54 22:28:00* Test Item Value Reference Range Interpretation Comments Magnesium Level (test code = 42931-3) 1.6 1.3-2.1 [facility] CenterTotal Bgtgepijw7486-67-78 22:28:00* Test Item Value Reference Range Interpretation Comments Total Bilirubin (test code = 1975-2) 0.2 0.2-1.2 [facility] CenterAspartate Amino Transf (AST/SGOT) 2019-06-17 22:28:00* Test Item Value Reference Range Interpretation Comments Aspartate Amino Transf (AST/SGOT) (test code = Aspartate Amino Transf (AST/SGOT)) 9 5-34 [facility] CenterAlanine Aminotransferase (ALT/SGPT) 2019-06-17 22:28:00* Test Item Value Reference Range Interpretation Comments Alanine Aminotransferase (ALT/SGPT) (test code = 1742-6) 11 0-55 [facility] Duuiqbm7876-24-01 22:28:00* Test Item Value Reference Range Interpretation Comments Total Protein (test code = 2885-2) 7.0 6.5-8.1 [facility] CenterAlbumin2019-09-05 22:28:00* Test Item Value Reference Range Interpretation Comments Albumin (test code = 1751-7) 3.7 3.5-5.0 [facility] CenterGlobulin2019-09-05 22:28:00* Test Item Value Reference Range Interpretation Comments Globulin (test code = 82426-5) 3.3 2.3-3.5 [facility] CenterAlbumin/Globulin Hakke3752-18-00 22:28:00 * Test Item Value Reference Range Interpretation Comments Albumin/Globulin Ratio (test code = 1759-0) 1.1 0.8-2.0 [facility] CenterAlkaline Rkdwxmzqmou0980-16-56 22:28:00* Test Item Value Reference Range Interpretation Comments Alkaline Phosphatase (test code = 6768-6) 132 40-150 [facility] CenterMagnesium Ppnic9990-73-80 22:28:00* Test Item Value Reference Range Interpretation Comments Magnesium Level (test code = 54324-8) 1.6 1.3-2.1 [facility] CenterMagnesium Hfzou3132-36-65 22:28:00* Test Item Value Reference Range Interpretation Comments Magnesium Level (test code = 63488-7) 1.6 1.3-2.1 [facility]2019-09-05 22:28:00* Test Item Value Reference Range Interpretation Comments Magnesium Level (test code = 46694-8) 1.6 1.3-2.1 [facility]2019-09-05 22:28:00* Test Item Value Reference Range Interpretation Comments Magnesium Level (test code = 05155-1) 1.6 1.3-2.1 [facility] CenterInfluenza Virus Types A,B Antigen 2019-06-17 22:18:00* Test Item Value Reference Range Interpretation Comments Influenza Virus Types A,B Antigen (test code = 28226-3) NEGATIVE NEGATIVE [facility] CenterInfluenza Virus Types A,B Antigen 2019-06-17 22:18:00* Test Item Value Reference Range Interpretation Comments Influenza Virus Types A,B Antigen (test code = 66111-6) NEGATIVE NEGATIVE [facility] CenterInfluenza Virus Types A,B Antigen 2019-06-17 22:18:00* Test Item Value Reference Range Interpretation Comments Influenza Virus Types A,B Antigen (test code = 95267-8) NEGATIVE NEGATIVE [facility] CenterInfluenza Virus Types A,B Antigen 2019-06-17 22:18:00* Test Item Value Reference Range Interpretation Comments Influenza Virus Types A,B Antigen (test code = 56792-0) NEGATIVE NEGATIVE [facility] CenterInfluenza Virus Types A,B Antigen 2019-06-17 22:18:00* Test Item Value Reference Range Interpretation Comments Influenza Virus Types A,B Antigen (test code = 26060-1) NEGATIVE NEGATIVE [facility] CenterInfluenza Virus Types A,B Antigen 2019-06-17 22:18:00* Test Item Value Reference Range Interpretation Comments Influenza Virus Types A,B Antigen (test code = 83052-0) NEGATIVE NEGATIVE [facility] CenterGroup A Streptococcus Myqnta8682-48-02 22:08:00* Test Item Value Reference Range Interpretation Comments Group A Streptococcus Screen (test code = 03870-5) NEGATIVE NEG ATIVE [facility] CenterGroup A Streptococcus Gfnntz7350-22-91 22:08:00* Test Item Value Reference Range Interpretation Comments Group A Streptococcus Screen (test code = 77065-9) NEGATIVE NEG ATIVE [facility] CenterGroup A Streptococcus Jvviun6397-43-65 22:08:00* Test Item Value Reference Range Interpretation Comments Group A Streptococcus Screen (test code = 88587-0) NEGATIVE NEG ATIVE [facility] CenterGroup A Streptococcus Lvhzry3258-25-88 22:08:00* Test Item Value Reference Range Interpretation Comments Group A Streptococcus Screen (test code = 86493-7) NEGATIVE NEG ATIVE [facility] [place] A Streptococcus Lmquhi5500-08-68 22:08:00* Test Item Value Reference Range Interpretation Comments Group A Streptococcus Screen (test code = 85210-2) NEGATIVE NEG ATIVE [facility] CenterGroup A Streptococcus Urhsgo4972-73-52 22:08:00* Test Item Value Reference Range Interpretation Comments Group A Streptococcus Screen (test code = 03066-5) NEGATIVE NEG ATIVE [facility] CenterWhite Blood Jqooj4293-55-16 22:04:00* Test Item Value Reference Range Interpretation Comments White Blood Count (test code = 6690-2) 7.25 4.8-10.8 [facility] CenterRed Blood Bxkal4574-57-91 22:04:00* Test Item Value Reference Range Interpretation Comments Red Blood Count (test code = 789-8) 5.01 3.6-5.1 [facility] CenterHemoglobin2019-09-05 22:04:00* Test Item Value Reference Range Interpretation Comments Hemoglobin (test code = 99348-5) 14.4 12.0-16.0 [facility] CenterHematocrit2019-09-05 22:04:00* Test Item Value Reference Range Interpretation Comments Hematocrit (test code = 4544-3) 41.1 34.2-44.1 [facility] CenterMean Corpuscular Rkyfjq6454-64-01 22:04:00* Test Item Value Reference Range Interpretation Comments Mean Corpuscular Volume (test code = 787-2) 82.0 81-99 [facility] CenterMean Corpuscular Cgtkeiqbpp1085-71-51 22:04:00* Test Item Value Reference Range Interpretation Comments Mean Corpuscular Hemoglobin (test code = 785-6) 28.7 28-32 [facility] CenterMean Corpuscular Hemoglobin Concent 2019-06-17 22:04:00* Test Item Value Reference Range Interpretation Comments Mean Corpuscular Hemoglobin Concent (test code = 786-4) 35.0 31-35 [facility] CenterRed Cell Distribution Rqbal1796-79-85 22:04:00* Test Item Value Reference Range Interpretation Comments Red Cell Distribution Width (test code = 04449-6) 11.8 11.7 -14.4 [facility] CenterPlatelet Rcvqp4107-07-79 22:04:00* Test Item Value Reference Range Interpretation Comments Platelet Count (test code = 777-3) 194 140-360 [facility] CenterNeutrophils (%) (Auto)2019-06-17 22:04:00 * Test Item Value Reference Range Interpretation Comments Neutrophils (%) (Auto) (test code = 05958-8) 45.1 38.7-80.0 [facility] CenterLymphocytes (%) (Auto)2019-06-17 22:04:00 * Test Item Value Reference Range Interpretation Comments Lymphocytes (%) (Auto) (test code = 736-9) 47.2 18.0-39.1 H [facility] CenterMonocytes (%) (Auto)2019-06-17 22:04:00* Test Item Value Reference Range Interpretation Comments Monocytes (%) (Auto) (test code = 5905-5) 6.3 4.4-11.3 [facility] CenterEosinophils (%) (Auto)2019-06-17 22:04:00 * Test Item Value Reference Range Interpretation Comments Eosinophils (%) (Auto) (test code = 713-8) 0.7 0.0-6.0 [facility] CenterBasophils (%) (Auto)2019-06-17 22:04:00* Test Item Value Reference Range Interpretation Comments Basophils (%) (Auto) (test code = 706-2) 0.4 0.0-1.0 [facility] CenterIM GRANULOCYTES %2019-06-17 22:04:00* Test Item Value Reference Range Interpretation Comments IM GRANULOCYTES % (test code = IM GRANULOCYTES %) 0.3 0.0- 1.0 [facility] CenterNeutrophils # (Auto)2019-06-17 22:04:00* Test Item Value Reference Range Interpretation Comments Neutrophils # (Auto) (test code = 751-8) 3.3 2.1-6.9 [facility] CenterLymphocytes # (Auto)2019-06-17 22:04:00* Test Item Value Reference Range Interpretation Comments Lymphocytes # (Auto) (test code = 86213-7) 3.4 1.0-3.2 H [facility] CenterMonocytes # (Auto)2019-06-17 22:04:00* Test Item Value Reference Range Interpretation Comments Monocytes # (Auto) (test code = 742-7) 0.5 0.2-0.8 [facility] CenterEosinophils # (Auto)2019-06-17 22:04:00* Test Item Value Reference Range Interpretation Comments Eosinophils # (Auto) (test code = 711-2) 0.1 0.0-0.4 [facility] CenterBasophils # (Auto)2019-06-17 22:04:00* Test Item Value Reference Range Interpretation Comments Basophils # (Auto) (test code = 704-7) 0.0 0.0-0.1 [facility] CenterAbsolute Immature Granulocyte (auto 2019-06-17 22:04:00* Test Item Value Reference Range Interpretation Comments Absolute Immature Granulocyte (auto (chiquita t code = Absolute Immature Granulocyte (auto) 0.02 0-0.1 [facility] CenterWhite Blood Xjxfg2101-46-16 22:04:00* Test Item Value Reference Range Interpretation Comments White Blood Count (test code = 6690-2) 7.25 4.8-10.8 [facility] CenterRed Blood Kuvuy6038-23-20 22:04:00* Test Item Value Reference Range Interpretation Comments Red Blood Count (test code = 789-8) 5.01 3.6-5.1 [facility] CenterHemoglobin2019-09-05 22:04:00* Test Item Value Reference Range Interpretation Comments Hemoglobin (test code = 39377-4) 14.4 12.0-16.0 [facility] CenterHematocrit2019-09-05 22:04:00* Test Item Value Reference Range Interpretation Comments Hematocrit (test code = 4544-3) 41.1 34.2-44.1 [facility] CenterMean Corpuscular Ztglcz0864-34-06 22:04:00* Test Item Value Reference Range Interpretation Comments Mean Corpuscular Volume (test code = 787-2) 82.0 81-99 [facility] CenterMean Corpuscular Qqmctvpggc6974-23-09 22:04:00* Test Item Value Reference Range Interpretation Comments Mean Corpuscular Hemoglobin (test code = 785-6) 28.7 28-32 [facility] Hemoglobin Concent 2019-06-17 22:04:00* Test Item Value Reference Range Interpretation Comments Mean Corpuscular Hemoglobin Concent (test code = 786-4) 35.0 31-35 [facility] CenterRed Cell Distribution Khcci9145-22-16 22:04:00* Test Item Value Reference Range Interpretation Comments Red Cell Distribution Width (test code = 80473-0) 11.8 11.7 -14.4 [facility] CenterPlatelet Xdtlj9262-07-27 22:04:00* Test Item Value Reference Range Interpretation Comments Platelet Count (test code = 777-3) 194 140-360 [facility] CenterNeutrophils (%) (Auto)2019-06-17 22:04:00 * Test Item Value Reference Range Interpretation Comments Neutrophils (%) (Auto) (test code = 82945-8) 45.1 38.7-80.0 [facility] CenterLymphocytes (%) (Auto)2019-06-17 22:04:00 * Test Item Value Reference Range Interpretation Comments Lymphocytes (%) (Auto) (test code = 736-9) 47.2 18.0-39.1 H [facility] CenterMonocytes (%) (Auto)2019-06-17 22:04:00* Test Item Value Reference Range Interpretation Comments Monocytes (%) (Auto) (test code = 5905-5) 6.3 4.4-11.3 [facility] CenterEosinophils (%) (Auto)2019-06-17 22:04:00 * Test Item Value Reference Range Interpretation Comments Eosinophils (%) (Auto) (test code = 713-8) 0.7 0.0-6.0 [facility] CenterBasophils (%) (Auto)2019-06-17 22:04:00* Test Item Value Reference Range Interpretation Comments Basophils (%) (Auto) (test code = 706-2) 0.4 0.0-1.0 [facility] CenterIM GRANULOCYTES %2019-06-17 22:04:00* Test Item Value Reference Range Interpretation Comments IM GRANULOCYTES % (test code = IM GRANULOCYTES %) 0.3 0.0- 1.0 [facility] CenterNeutrophils # (Auto)2019-06-17 22:04:00* Test Item Value Reference Range Interpretation Comments Neutrophils # (Auto) (test code = 751-8) 3.3 2.1-6.9 [facility] CenterLymphocytes # (Auto)2019-06-17 22:04:00* Test Item Value Reference Range Interpretation Comments Lymphocytes # (Auto) (test code = 06880-4) 3.4 1.0-3.2 H [facility] CenterMonocytes # (Auto)2019-06-17 22:04:00* Test Item Value Reference Range Interpretation Comments Monocytes # (Auto) (test code = 742-7) 0.5 0.2-0.8 [facility] CenterEosinophils # (Auto)2019-06-17 22:04:00* Test Item Value Reference Range Interpretation Comments Eosinophils # (Auto) (test code = 711-2) 0.1 0.0-0.4 [facility] CenterBasophils # (Auto)2019-06-17 22:04:00* Test Item Value Reference Range Interpretation Comments Basophils # (Auto) (test code = 704-7) 0.0 0.0-0.1 [facility] CenterAbsolute Immature Granulocyte (auto 2019-06-17 22:04:00* Test Item Value Reference Range Interpretation Comments Absolute Immature Granulocyte (auto (chiquita t code = Absolute Immature Granulocyte (auto) 0.02 0-0.1 [facility] CenterCHEST 2 XLMKH3234-31-11 21:18:00 [place] [address] Patient Name: YOLETTE URIBE MR #: [id number] : 1975 Age/Sex: 43/F Req #: [id number] Adm Physician: Ordered by: BEVERLY MARTELL SHIPS OR [employer] LO[employer]ER Report #: [id number] Location: ER Room/Bed: Procedure: [id number] DX/CH EST 2 VIEWS Exam Date: 06/17/19 [...] JEMAL on 2118 COPY TO: BEVERLY MARTELL SHIPS OR [employer]ARG[employer] LO[employer]ER Urine [id number] 20:09:00* Test Item Value Reference Range Interpretation Comments Urine WBC (test code = 5821-4) 0-5 0-5 [facility] CenterUrine CEG9622-70-49 20:09:00* Test Item Value Reference Range Interpretation Comments Urine RBC (test code = 57357-7) NONE 0-5 [facility] CenterUrine Gfxaqorn2332-75-58 20:09:00* Test Item Value Reference Range Interpretation Comments Urine Bacteria (test code = 93794-4) RARE NONE [facility] CenterUrine Epithelial Ztbco0948-79-35 20:09:00 * Test Item Value Reference Range Interpretation Comments Urine Epithelial Cells (test code = 57685-5) FEW NONE [facility] CenterUrine PVM4051-48-34 20:09:00* Test Item Value Reference Range Interpretation Comments Urine WBC (test code = 5821-4) 0-5 0-5 [facility] CenterUrine FJJ1136-27-64 20:09:00* Test Item Value Reference Range Interpretation Comments Urine RBC (test code = 29419-3) NONE 0-5 [facility] CenterUrine Keppepay0695-17-47 20:09:00* Test Item Value Reference Range Interpretation Comments Urine Bacteria (test code = 55955-8) RARE NONE [facility] CenterUrine Epithelial Wltis3382-96-55 20:09:00 * Test Item Value Reference Range Interpretation Comments Urine Epithelial Cells (test code = 29717-1) FEW NONE [facility] CenterUrine ZEG6071-74-34 20:09:00* Test Item Value Reference Range Interpretation Comments Urine WBC (test code = 5821-4) 0-5 0-5 [facility] CenterUrine FPA1071-76-64 20:09:00* Test Item Value Reference Range Interpretation Comments Urine RBC (test code = 74026-4) NONE 0-5 [facility] CenterUrine Hxbogsrf3975-57-95 20:09:00* Test Item Value Reference Range Interpretation Comments Urine Bacteria (test code = 69412-2) RARE NONE [facility] CenterUrine Epithelial Ybzbg2595-86-25 20:09:00 * Test Item Value Reference Range Interpretation Comments Urine Epithelial Cells (test code = 06929-1) FEW NONE [facility] CenterUrine ZUK1931-37-34 20:09:00* Test Item Value Reference Range Interpretation Comments Urine WBC (test code = 5821-4) 0-5 0-5 [facility] CenterUrine OYG3313-06-31 20:09:00* Test Item Value Reference Range Interpretation Comments Urine RBC (test code = 33714-3) NONE 0-5 [facility] CenterUrine Vwjwrorj1589-54-00 20:09:00* Test Item Value Reference Range Interpretation Comments Urine Bacteria (test code = 04113-5) RARE NONE [facility] CenterUrine Epithelial Arokn3217-39-05 20:09:00 * Test Item Value Reference Range Interpretation Comments Urine Epithelial Cells (test code = 31041-0) FEW NONE [facility] CenterUrine BMW1622-55-88 20:09:00* Test Item Value Reference Range Interpretation Comments Urine WBC (test code = 5821-4) 0-5 0-5 [facility] CenterU[facility] RFZ1231-62-23 20:09:00* Test Item Value Reference Range Interpretation Comments Urine RBC (test code = 46398-7) NONE 0-5 [facility] CenterUrine Rjdjsvdq2044-84-07 20:09:00* Test Item Value Reference Range Interpretation Comments Urine Bacteria (test code = 15120-9) RARE NONE [facility] CenterU[facility] Epithelial Fdlck5270-34-39 20:09:00 * Test Item Value Reference Range Interpretation Comments Urine Epithelial Cells (test code = 81227-0) FEW NONE [facility] CenterU[facility] AMM0222-04-54 20:09:00* Test Item Value Reference Range Interpretation Comments Urine WBC (test code = 5821-4) 0-5 0-5 [facility] CenterU[facility] FUG1286-84-87 20:09:00* Test Item Value Reference Range Interpretation Comments Urine RBC (test code = 48025-9) NONE 0-5 [facility] CenterUrine Pmcokssu3297-64-84 20:09:00* Test Item Value Reference Range Interpretation Comments Urine Bacteria (test code = 91120-9) RARE NONE [facility] CenterUrine Epithelial Warxf8976-22-35 20:09:00 * Test Item Value Reference Range Interpretation Comments Urine Epithelial Cells (test code = 29956-5) FEW NONE [facility] CenterU[facility] JNV3905-26-96 20:09:00* Test Item Value Reference Range Interpretation Comments Urine WBC (test code = 5821-4) 0-5 0-5 [facility] CenterU[facility] OCQ3033-58-57 20:09:00* Test Item Value Reference Range Interpretation Comments Urine RBC (test code = 48717-7) NONE 0-5 [facility] CenterUrine Rgxvtgsc6644-72-93 20:09:00* Test Item Value Reference Range Interpretation Comments Urine Bacteria (test code = 81666-1) RARE NONE [facility] CenterUrine Epithelial Likwt6389-53-47 20:09:00 * Test Item Value Reference Range Interpretation Comments Urine Epithelial Cells (test code = 73217-6) FEW NONE [facility] CenterU[facility] Umoe1127-55-09 19:57:00* Test Item Value Reference Range Interpretation Comments Urine Test (test code = 2106-3) NEGATIVE NEGATIVE [facility] CenterU[facility] Ufls6125-61-91 19:57:00* Test Item Value Reference Range Interpretation Comments Urine Test (test code = 2106-3) NEGATIVE NEGATIVE [facility] CenterU[facility] Ddoz8071-97-36 19:57:00* Test Item Value Reference Range Interpretation Comments Urine Test (test code = 2106-3) NEGATIVE NEGATIVE [facility] CenterU[facility] Fbktq2469-09-58 19:56:00* Test Item Value Reference Range Interpretation Comments Urine Color (test code = 5778-6) YELLOW YELLOW [facility] CenterU[facility] Xcpckct1489-76-70 19:56:00* Test Item Value Reference Range Interpretation Comments Urine Clarity (test code = 22431-7) CLEAR CLEAR [facility] CenterU[facility] Specific Wynwyiq8610-49-29 19:56:00 * Test Item Value Reference Range Interpretation Comments Urine Specific [place] (test code = 5811-5) <=1.005 1.010-1.02 5 [facility] CenterU[facility] tN2904-57-76 19:56:00* Test Item Value Reference Range Interpretation Comments Urine pH (test code = 44307-5) 6 5-7 [facility] Leukocyte Mxvghbtp0741-20-40 19:56:00* Test Item Value Reference Range Interpretation Comments Urine Leukocyte Esterase (test code = 63365-1) NEGATIVE NEGATIV E [facility] CenterU[facility] Dmcofiv0269-80-70 19:56:00* Test Item Value Reference Range Interpretation Comments Urine Nitrite (test code = 84910-2) NEGATIVE NEGATIVE [facility] CenterU[facility] Rjdhbfv0380-67-02 19:56:00* Test Item Value Reference Range Interpretation Comments Urine Protein (test code = 44447-1) NEGATIVE NEGATIVE [facility] CenterUrine Glucose (UA)2019-06-17 19:56:00* Test Item Value Reference Range Interpretation Comments Urine Glucose (UA) (test code = 39940-6) 3+ NEGATIVE [facility] CenterU[facility] Rlelalw1067-10-86 19:56:00* Test Item Value Reference Range Interpretation Comments Urine Ketones (test code = 25940-4) NEGATIVE NEGATIVE [facility] CenterU[facility] Tdrhapyuayce2818-40-95 19:56:00* Test Item Value Reference Range Interpretation Comments Urine Urobilinogen (test code = 57821-9) 0.2 0.2-1 [facility] CenterU[facility] Ghbzrasjj4243-87-39 19:56:00* Test Item Value Reference Range Interpretation Comments Urine Bilirubin (test code = 1977-8) NEGATIVE NEGATIVE [facility] CenterU[facility] Mzqxj7056-65-67 19:56:00* Test Item Value Reference Range Interpretation Comments Urine Blood (test code = 59612-9) NEGATIVE NEGATIVE [facility] CenterU[facility] Kzftq7789-65-17 19:56:00* Test Item Value Reference Range Interpretation Comments Urine Color (test code = 5778-6) YELLOW YELLOW [facility] CenterU[facility] Eigxlfg2051-43-07 19:56:00* Test Item Value Reference Range Interpretation Comments Urine Clarity (test code = 42896-9) CLEAR CLEAR [facility] CenterU[facility] Specific Tppvuvy0433-21-76 19:56:00 * Test Item Value Reference Range Interpretation Comments Urine Specific [place] (test code = 5811-5) <=1.005 1.010-1.02 5 [facility] CenterU[facility] lF7415-14-11 19:56:00* Test Item Value Reference Range Interpretation Comments Urine pH (test code = 81969-8) 6 5-7 [facility] CenterU[facility] Leukocyte Awnwcmks9439-25-79 19:56:00* Test Item Value Reference Range Interpretation Comments Urine Leukocyte Esterase (test code = 98600-6) NEGATIVE NEGATIV E [facility] CenterU[facility] Qoosdqu4801-49-66 19:56:00* Test Item Value Reference Range Interpretation Comments Urine Nitrite (test code = 27172-0) NEGATIVE NEGATIVE [facility] CenterU[facility] Skhnnbe0924-66-71 19:56:00* Test Item Value Reference Range Interpretation Comments Urine Protein (test code = 35687-8) NEGATIVE NEGATIVE [facility] CenterU[facility] Glucose (UA)2019-06-17 19:56:00* Test Item Value Reference Range Interpretation Comments Urine Glucose (UA) (test code = 28465-7) 3+ NEGATIVE [facility] CenterU[facility] Yakrccc9422-65-49 19:56:00* Test Item Value Reference Range Interpretation Comments Urine Ketones (test code = 38352-6) NEGATIVE NEGATIVE [facility] CenterU[facility] Vvjtwgqacqdx1028-54-12 19:56:00* Test Item Value Reference Range Interpretation Comments Urine Urobilinogen (test code = 74960-1) 0.2 0.2-1 [facility] CenterU[facility] Njjkrzjkg1768-10-80 19:56:00* Test Item Value Reference Range Interpretation Comments Urine Bilirubin (test code = 1977-8) NEGATIVE NEGATIVE [facility] CenterU[facility] Ketup3890-47-07 19:56:00* Test Item Value Reference Range Interpretation Comments Urine Blood (test code = 48557-4) NEGATIVE NEGATIVE [facility] CenterU[facility] Nsxqc2000-20-71 19:56:00* Test Item Value Reference Range Interpretation Comments Urine Color (test code = 5778-6) YELLOW YELLOW [facility] CenterU[facility] Ekvnlty6522-38-63 19:56:00* Test Item Value Reference Range Interpretation Comments Urine Clarity (test code = 54842-7) CLEAR CLEAR [facility] Uittjxv1552-61-80 19:56:00 * Test Item Value Reference Range Interpretation Comments Urine Specific [place] (test code = 5811-5) <=1.005 1.010-1.02 5 [facility] bP2021-17-26 19:56:00* Test Item Value Reference Range Interpretation Comments Urine pH (test code = 14872-0) 6 5-7 [facility] Leukocyte Rwyqqjkk0613-32-05 19:56:00* Test Item Value Reference Range Interpretation Comments Urine Leukocyte Esterase (test code = 29060-9) NEGATIVE NEGATIV E [facility] Rlaucse4443-91-08 19:56:00* Test Item Value Reference Range Interpretation Comments Urine Nitrite (test code = 01899-6) NEGATIVE NEGATIVE [facility] Tthfmle9566-60-26 19:56:00* Test Item Value Reference Range Interpretation Comments Urine Protein (test code = 41008-4) NEGATIVE NEGATIVE [facility] Glucose (UA)2019-06-17 19:56:00* Test Item Value Reference Range Interpretation Comments Urine Glucose (UA) (test code = 40146-2) 3+ NEGATIVE [facility] Eaddzkq4587-03-52 19:56:00* Test Item Value Reference Range Interpretation Comments Urine Ketones (test code = 96333-2) NEGATIVE NEGATIVE [facility] Uzoinmeafrxi6356-22-11 19:56:00* Test Item Value Reference Range Interpretation Comments Urine Urobilinogen (test code = 18729-8) 0.2 0.2-1 [facility] Zwsjvvrsp1748-43-34 19:56:00* Test Item Value Reference Range Interpretation Comments Urine Bilirubin (test code = 1977-8) NEGATIVE NEGATIVE [facility] Oeyel4791-52-97 19:56:00* Test Item Value Reference Range Interpretation Comments Urine Blood (test code = 30373-8) NEGATIVE NEGATIVE [facility] Iiwvy8623-90-70 19:56:00* Test Item Value Reference Range Interpretation Comments Urine Color (test code = 5778-6) YELLOW YELLOW [facility] Olucvau3350-76-75 19:56:00* Test Item Value Reference Range Interpretation Comments Urine Clarity (test code = 85188-2) CLEAR CLEAR [facility] Specific Nunabqn4855-35-38 19:56:00 * Test Item Value Reference Range Interpretation Comments Urine Specific [place] (test code = 5811-5) <=1.005 1.010-1.02 5 [facility] zV1432-31-27 19:56:00* Test Item Value Reference Range Interpretation Comments Urine pH (test code = 66884-7) 6 5-7 [facility] Leukocyte Ovvltaik0934-69-36 19:56:00* Test Item Value Reference Range Interpretation Comments Urine Leukocyte Esterase (test code = 86914-3) NEGATIVE NEGATIV E [facility] Wtvpzge6634-64-73 19:56:00* Test Item Value Reference Range Interpretation Comments Urine Nitrite (test code = 02554-2) NEGATIVE NEGATIVE [facility] Aafkjbo3833-87-99 19:56:00* Test Item Value Reference Range Interpretation Comments Urine Protein (test code = 49742-9) NEGATIVE NEGATIVE [facility] Glucose (UA)2019-06-17 19:56:00* Test Item Value Reference Range Interpretation Comments Urine Glucose (UA) (test code = 55716-0) 3+ NEGATIVE [facility] Jgwfvcx8277-05-17 19:56:00* Test Item Value Reference Range Interpretation Comments Urine Ketones (test code = 58744-5) NEGATIVE NEGATIVE [facility] Tdstunvvisrq8716-61-56 19:56:00* Test Item Value Reference Range Interpretation Comments Urine Urobilinogen (test code = 58846-7) 0.2 0.2-1 [facility] Ztvljihwq4451-01-26 19:56:00* Test Item Value Reference Range Interpretation Comments Urine Bilirubin (test code = 1977-8) NEGATIVE NEGATIVE [facility] Cgasd4056-45-55 19:56:00* Test Item Value Reference Range Interpretation Comments Urine Blood (test code = 34211-7) NEGATIVE NEGATIVE [facility] Otgpi7066-92-12 19:56:00* Test Item Value Reference Range Interpretation Comments Urine Color (test code = 5778-6) YELLOW YELLOW [facility] Dueclfz4426-58-19 19:56:00* Test Item Value Reference Range Interpretation Comments Urine Clarity (test code = 38559-7) CLEAR CLEAR [facility] Specific Uayixkw9662-91-08 19:56:00 * Test Item Value Reference Range Interpretation Comments Urine Specific [place] (test code = 5811-5) <=1.005 1.010-1.02 5 [facility] rX5764-09-82 19:56:00* Test Item Value Reference Range Interpretation Comments Urine pH (test code = 60336-8) 6 5-7 [facility] Leukocyte Etlsfkiv0014-85-15 19:56:00* Test Item Value Reference Range Interpretation Comments Urine Leukocyte Esterase (test code = 47349-0) NEGATIVE NEGATIV E [facility] Zeulzun2256-47-14 19:56:00* Test Item Value Reference Range Interpretation Comments Urine Nitrite (test code = 10481-0) NEGATIVE NEGATIVE [facility] Cealmrk5634-82-24 19:56:00* Test Item Value Reference Range Interpretation Comments Urine Protein (test code = 32009-3) NEGATIVE NEGATIVE [facility] Glucose (UA)2019-06-17 19:56:00* Test Item Value Reference Range Interpretation Comments Urine Glucose (UA) (test code = 57309-2) 3+ NEGATIVE [facility] Shrbtsz0378-50-69 19:56:00* Test Item Value Reference Range Interpretation Comments Urine Ketones (test code = 11068-1) NEGATIVE NEGATIVE [facility] Fsebhgzualoz5707-83-67 19:56:00* Test Item Value Reference Range Interpretation Comments Urine Urobilinogen (test code = 01440-7) 0.2 0.2-1 [facility] Harodubzj4656-08-27 19:56:00* Test Item Value Reference Range Interpretation Comments Urine Bilirubin (test code = 1977-8) NEGATIVE NEGATIVE [facility] Cgcwx8626-61-47 19:56:00* Test Item Value Reference Range Interpretation Comments Urine Blood (test code = 03666-2) NEGATIVE NEGATIVE [facility] Pegmg6156-36-36 19:56:00* Test Item Value Reference Range Interpretation Comments Urine Color (test code = 5778-6) YELLOW YELLOW [facility] Toycqje2337-43-34 19:56:00* Test Item Value Reference Range Interpretation Comments Urine Clarity (test code = 61877-1) CLEAR CLEAR [facility] Specific Genluxc9600-66-68 19:56:00 * Test Item Value Reference Range Interpretation Comments Urine Specific [place] (test code = 5811-5) <=1.005 1.010-1.02 5 [facility] rA5551-15-43 19:56:00* Test Item Value Reference Range Interpretation Comments Urine pH (test code = 43796-8) 6 5-7 [facility] Leukocyte Wmpqpyeq9684-14-94 19:56:00* Test Item Value Reference Range Interpretation Comments Urine Leukocyte Esterase (test code = 60798-1) NEGATIVE NEGATIV E [facility] Tlbcbra5794-38-37 19:56:00* Test Item Value Reference Range Interpretation Comments Urine Nitrite (test code = 25216-7) NEGATIVE NEGATIVE [facility] Mqalevh7865-52-43 19:56:00* Test Item Value Reference Range Interpretation Comments Urine Protein (test code = 78213-8) NEGATIVE NEGATIVE [facility] Center[facility] Glucose (UA)2019-06-17 19:56:00* Test Item Value Reference Range Interpretation Comments Urine Glucose (UA) (test code = 37862-1) 3+ NEGATIVE [facility] Lrsrpss7250-16-80 19:56:00* Test Item Value Reference Range Interpretation Comments Urine Ketones (test code = 93534-5) NEGATIVE NEGATIVE [facility] Ghxzadyqbhvc6117-94-81 19:56:00* Test Item Value Reference Range Interpretation Comments Urine Urobilinogen (test code = 42662-7) 0.2 0.2-1 [facility] Nddyyoaeb3389-35-55 19:56:00* Test Item Value Reference Range Interpretation Comments Urine Bilirubin (test code = 1977-8) NEGATIVE NEGATIVE [facility] Zymip2752-69-85 19:56:00* Test Item Value Reference Range Interpretation Comments Urine Blood (test code = 84054-5) NEGATIVE NEGATIVE [facility] Luknu2661-28-44 19:56:00* Test Item Value Reference Range Interpretation Comments Urine Color (test code = 5778-6) YELLOW YELLOW [facility] Vucoshi2360-68-18 19:56:00* Test Item Value Reference Range Interpretation Comments Urine Clarity (test code = 76722-1) CLEAR CLEAR [facility] CenterU[facility] Specific Uhcdwob5528-00-55 19:56:00 * Test Item Value Reference Range Interpretation Comments Urine Specific [place] (test code = 5811-5) <=1.005 1.010-1.02 5 [facility] cJ0551-61-29 19:56:00* Test Item Value Reference Range Interpretation Comments Urine pH (test code = 69722-4) 6 5-7 [facility] Leukocyte Endgyest6629-06-84 19:56:00* Test Item Value Reference Range Interpretation Comments Urine Leukocyte Esterase (test code = 56140-8) NEGATIVE NEGATIV E [facility] Ypzgoot5118-67-87 19:56:00* Test Item Value Reference Range Interpretation Comments Urine Nitrite (test code = 78604-8) NEGATIVE NEGATIVE [facility] Achnvio5353-68-88 19:56:00* Test Item Value Reference Range Interpretation Comments Urine Protein (test code = 47577-5) NEGATIVE NEGATIVE [facility] Glucose (UA)2019-06-17 19:56:00* Test Item Value Reference Range Interpretation Comments Urine Glucose (UA) (test code = 27748-2) 3+ NEGATIVE [facility] Ocqqper1471-39-86 19:56:00* Test Item Value Reference Range Interpretation Comments Urine Ketones (test code = 05976-4) NEGATIVE NEGATIVE [facility] Oygmvidiagjr8232-21-80 19:56:00* Test Item Value Reference Range Interpretation Comments Urine Urobilinogen (test code = 60767-0) 0.2 0.2-1 [facility] Lwalfwlgo3324-88-86 19:56:00* Test Item Value Reference Range Interpretation Comments Urine Bilirubin (test code = 1977-8) NEGATIVE NEGATIVE [facility] Ylvij2434-26-08 19:56:00* Test Item Value Reference Range Interpretation Comments Urine Blood (test code = 87364-2) NEGATIVE NEGATIVE [facility] CenterBASIC METABOLIC JNOYG5128-93-56 15:17:00 * Test Item Value Reference Range [...] 849 mg/dL 74-106 Re sults called to LAURI/CQZ5935on V.LAB.SPR 06/17/19 1456Critical results verified and read [...] CA) 9.3 mg/dL 8.5-10.1 N HEPATIC FUNCTION DTHAO5646-90-97 15:17:00* Test Item Value Reference Range Interpretation [...] reference range due to change in reagent. XXDZBA7467-55-35 15:17:00* Test Item Value Reference Range Interpretation Comments LIPASE (test code = LIP) 234 U/L 73.0-393.0 N HCG SERUM PUVW5787-39-79 15:17:00* Test Item Value Reference Range Interpretation Comments HCG SERUM QUAL (test code = HCGQL) NEGATIVE NEGATIVE This HCGQL test is NOT applicable for MALE patients.Check with nurse about probable order error.If Tumor Marker Test needed, nurse should order test "HCGTU"(Test #550.29980) DEBLMYSP-I4836-58-05 15:17:00* Test Item Value Reference Range Interpretation Comments TROPONIN-I (test code = TROPI) <0.015 ng/mL 0-0.045 N URINALYSIS KNKTUOJF9801-00-06 15:14:00* Test Item Value Reference Range Interpretation [...] #/LPF FEW Urine Source? Clean CatchBASIC METABOLIC WXZWR7108-50-23 14:56:00* Test Item Value Reference Range Interpretation [...] 849 mg/dL 74-106 Re sults called to LAURI/SKI4908ig V.LAB.SPR 06/17/19 1456Critical results verified and read [...] CA) 9.3 mg/dL 8.5-10.1 N HEPATIC FUNCTION XTQGC5639-98-94 14:56:00* Test Item Value Reference Range Interpretation [...] reference range due to change in reagent. CVSRWG9802-40-93 14:56:00* Test Item Value Reference Range Interpretation Comments LIPASE (test code = LIP) 234 U/L 73.0-393.0 N HCG SERUM PWZK4603-77-25 14:56:00* Test Item Value Reference Range Interpretation Comments HCG SERUM QUAL (test code = HCGQL) NEGATIVE EFFTCDLB-V3803-07-05 14:56:00* Test Item Value Reference Range Interpretation Comments TROPONIN-I (test code = TROPI) <0.015 ng/mL 0-0.045 N CBC W/O PLSF6881-70-48 14:24:00* Test Item Value Reference Range Interpretation [...] MPV) 11.6 fL 6.7-11.0 H CBC W/O MOMT5939-80-44 14:20:00* Test Item Value Reference Range Interpretation [...] code = MPV) fL 6.7-11.0 BASIC METABOLIC PGNRZ7622-63-27 14:20:00* Test Item Value Reference Range Interpretation [...] code = CA) mg/dL 8.5-10.1 HEPATIC FUNCTION STGFR8640-77-75 14:20:00* Test Item Value Reference Range Interpretation [...] TOTAL (test code = ALKP) IUnit/L 45-117 XFGLRD0772-24-10 14:20:00* Test Item Value Reference Range Interpretation Comments LIPASE (test code = LIP) U/L 73.0-393.0 HCG SERUM KOEK1440-89-18 14:20:00* Test Item Value Reference Range Interpretation Comments HCG SERUM QUAL (test code = HCGQL) NEGATIVE XNFMCZMU-Y3301-26-05 14:20:00* Test Item Value Reference Range Interpretation Comments TROPONIN-I (test code = TROPI) ng/mL 0-0.045 Urine CAF5408-30-05 23:35:00* Test Item Value Reference Range Interpretation Comments Urine WBC (test code = 5821-4) >50 0-5 H [facility] IPB6412-62-14 23:35:00* Test Item Value Reference Range Interpretation Comments Urine RBC (test code = 02510-3) 0-5 0-5 [facility] Brpcqkbd0048-31-88 23:35:00* Test Item Value Reference Range Interpretation Comments Urine Bacteria (test code = 89192-9) FEW NONE [facility] Epithelial Elqvr9285-66-01 23:35:00 * Test Item Value Reference Range Interpretation Comments Urine Epithelial Cells (test code = 72595-7) FEW NONE [facility] Tvnga4126-81-32 23:24:00* Test Item Value Reference Range Interpretation Comments Urine Color (test code = 5778-6) YELLOW YELLOW [facility] Xavxwkh2125-82-23 23:24:00* Test Item Value Reference Range Interpretation Comments Urine Clarity (test code = 66911-3) CLEAR CLEAR [facility] CenterU[facility] Specific Gzqxdij8718-72-58 23:24:00 * Test Item Value Reference Range Interpretation Comments Urine Specific [place] (test code = 5811-5) 1.005 1.010-1.02 5 L [facility] zD0088-97-82 23:24:00* Test Item Value Reference Range Interpretation Comments Urine pH (test code = 49751-3) 6 5-7 [facility] Leukocyte Pkyyouaq5307-25-03 23:24:00* Test Item Value Reference Range Interpretation Comments Urine Leukocyte Esterase (test code = 5799-2) NEGATIVE NEGATIVE [facility] Sqatpfj1246-88-22 23:24:00* Test Item Value Reference Range Interpretation Comments Urine Nitrite (test code = 03473-0) NEGATIVE NEGATIVE [facility] Xryjhxn9666-68-08 23:24:00* Test Item Value Reference Range Interpretation Comments Urine Protein (test code = 5804-0) NEGATIVE NEGATIVE [facility] Center[facility] Glucose (UA)2019-01-23 23:24:00* Test Item Value Reference Range Interpretation Comments Urine Glucose (UA) (test code = 2349-9) 3+ NEGATIVE H [facility] Pgeolrx1807-41-88 23:24:00* Test Item Value Reference Range Interpretation Comments Urine Ketones (test code = 87659-6) NEGATIVE NEGATIVE [facility] Vchowrntrjcc4308-87-29 23:24:00* Test Item Value Reference Range Interpretation Comments Urine Urobilinogen (test code = 07563-1) 0.2 0.2-1 [facility] Pyptrwynr1275-64-80 23:24:00* Test Item Value Reference Range Interpretation Comments Urine Bilirubin (test code = 1978-6) NEGATIVE NEGATIVE [facility] Center[facility] Ltvmr7257-31-52 23:24:00* Test Item Value Reference Range Interpretation Comments Urine Blood (test code = 45224-2) NEGATIVE NEGATIVE [facility] CenterCT BRAIN YR4448-55-68 23:06:00 [facility] [address] [place] [address] Patient Name: YOLETTE URIBE MR #: [id number] : 1975 Age/Sex: 43/F Req #: [id number] Adm Physician: Ordered by: CHEIKH PIKE MD Report #: [id number] Location: ER Room/Bed: Procedure: [id number] CT/CT BR ANDRA WO Exam Date: 01/23/19 Exam Time: 2242 [...] 01/23/192313 COPY TO: CHEIKH PIKE MD Blood Vvihqsy0818-44-89 14:57:00* Test Item Value Reference Range Interpretation Comments Blood Culture (test code = 23006779) NO GROWTH AFTER 5 DAYS, FINAL REPORT [facility] CenterBlood Snpdhfo9786-15-80 14:57:00* Test Item Value Reference Range Interpretation Comments Blood Culture (test code = 50188591) NO GROWTH AFTER 5 DAYS, FINAL REPORT [facility] Camalnb6069-69-39 14:57:00* Test Item Value Reference Range Interpretation Comments Blood Culture (test code = 62266849) NO GROWTH AFTER 5 DAYS, FINAL REPORT [facility] Bynjcgo1992-22-61 08:26:00* Test Item Value Reference Range Interpretation Comments Wound Culture (test code = 6462-6) Organism: STREP AGALACTIAE GROUP B [facility] Llzgzpq6623-78-70 08:26:00* Test Item Value Reference Range Interpretation Comments Wound Culture (test code = 6462-6) Organism: STREP AGALACTIAE GROUP B [facility] [place] Dxeazxe1749-90-71 08:26:00* Test Item Value Reference Range Interpretation Comments Wound Culture (test code = 6462-6) Organism: STREP AGALACTIAE GROUP B [facility] CenterVancomycin Level Rwopod9221-43-82 09:55:00* Test Item Value Reference Range Interpretation Comments Vancomycin Level Trough (test code = 4092-3) -2.0 5.0-10.0 L [facility] CenterVancomycin Level Bnmebd4740-37-70 09:55:00* Test Item Value Reference Range Interpretation Comments Vancomycin Level Trough (test code = 4092-3) < 2.0 5.0-10.0 L [facility] CenterVancomycin Level Tdxkfe1750-54-60 09:55:00* Test Item Value Reference Range Interpretation Comments Vancomycin Level Trough (test code = 4092-3) < 2.0 5.0-10.0 L [facility] CenterVancomycin Level Tplchz8655-73-65 09:55:00* Test Item Value Reference Range Interpretation Comments Vancomycin Level Trough (test code = 4092-3) < 2.0 5.0-10.0 L [facility] Wdttkfc7179-28-19 09:17:00* Test Item Value Reference Range Interpretation Comments Blood Culture (test code = 58176266) NO GROWTH AFTER 48 HOURS [facility] CenterBedside Xzwqrac2791-47-64 08:15:00* Test Item Value Reference Range Interpretation Comments Bedside Glucose (test code = 36604-6) 347 70-120 H Meter ID: [id number][facility] 2018-03-19 08:15:00* Test Item Value Reference Range Interpretation Comments Bedside Glucose (test code = 36933-3) 347 70-120 H Meter ID: [id number]. [facility] Glucose 2018-03-19 08:15:00* Test Item Value Reference Range Interpretation Comments Bedside Glucose (test code = 80528-1) 347 70-120 H Meter ID: [id number]. [facility] Glucose 2018-03-19 08:15:00* Test Item Value Reference Range Interpretation Comments Bedside Glucose (test code = 15354-1) 347 70-120 H Meter ID: [id number] Health Levellandodium Level 2018-03-18 09:38:00* Test Item Value Reference Range Interpretation Comments Sodium Level (test code = 2951-2) 137 136-145 [facility] CenterPotassium Dchux2836-89-30 09:38:00* Test Item Value Reference Range Interpretation Comments Potassium Level (test code = 2823-3) 4.4 3.5-5.1 [facility] CenterChloride Prbiw3562-07-43 09:38:00* Test Item Value Reference Range Interpretation Comments Chloride Level (test code = 2075-0) 104 98-107 [facility] CenterCarbon Dioxide Pkxjv1328-40-98 09:38:00* Test Item Value Reference Range Interpretation Comments Carbon Dioxide Level (test code = 2028-9) 25 22-29 [facility] CenterAnion Lyg8466-93-82 09:38:00* Test Item Value Reference Range Interpretation Comments Anion Gap (test code = 00862-7) 12.4 8-16 [facility] CenterBlood Urea Inqbhpra2807-78-16 09:38:00* Test Item Value Reference Range Interpretation Comments Blood Urea Nitrogen (test code = 3094-0) 10 7-26 [facility] CenterCreatinine2018-06-06 09:38:00* Test Item Value Reference Range Interpretation Comments Creatinine (test code = 2160-0) 0.77 0.57-1.11 [facility] CenterBUN/Creatinine Cuqhh9226-49-11 09:38:00* Test Item Value Reference Range Interpretation Comments BUN/Creatinine Ratio (test code = 3097-3) 13 6-25 [facility] CenterEstimat Glomerular Filtration Rate 2018-03-18 09:38:00* Test Item Value Reference Range Interpretation Comments Estimat Glomerular Filtration Rate (test code = 50584-1) 60- >60 Ranges were taken from the National Kidney Disease Education Program and the [facility] Kid[facility] Foundation literature.Reference ranges:60 or greater: Qoaqru26-84 ( for 3 consecutive months): Chronic kidney disease 15 or less: Kidney failureMethodist [facility] Medical CenterGlucose Wrznk6082-75-96 09:38:00* Test Item Value Reference Range Interpretation Comments Glucose Level (test code = WDM0007) 402 74-118 HH Results called to [Shell Syed RN] at 0937 on 03/18/18 by Wendie Madrigal. RB [place]. [facility] CenterCalcium Mhurp6844-00-94 09:38:00* Test Item Value Reference Range Interpretation Comments Calcium Level (test code = 78146-6) 9.5 8.4-10.2 [facility]andodium Xfmcm1280-84-85 09:38:00* Test Item Value Reference Range Interpretation Comments Sodium Level (test code = 2951-2) 137 136-145 [facility] CenterPotassium Hibyy7698-69-89 09:38:00* Test Item Value Reference Range Interpretation Comments Potassium Level (test code = 2823-3) 4.4 3.5-5.1 [facility] CenterChloride Yatmv7489-06-34 09:38:00* Test Item Value Reference Range Interpretation Comments Chloride Level (test code = 2075-0) 104 98-107 [facility] CenterCarbon Dioxide Ysdad4492-95-45 09:38:00* Test Item Value Reference Range Interpretation Comments Carbon Dioxide Level (test code = 2028-9) 25 22-29 [facility] CenterAnion Izu7439-02-90 09:38:00* Test Item Value Reference Range Interpretation Comments Anion Gap (test code = 38850-6) 12.4 8-16 [facility] CenterBlood Urea Xrsfxtps7945-30-03 09:38:00* Test Item Value Reference Range Interpretation Comments Blood Urea Nitrogen (test code = 3094-0) 10 7-26 [facility] CenterCreatinine2018-06-06 09:38:00* Test Item Value Reference Range Interpretation Comments Creatinine (test code = 2160-0) 0.77 0.57-1.11 [facility] CenterBUN/Creatinine Ujvkg3021-31-16 09:38:00* Test Item Value Reference Range Interpretation Comments BUN/Creatinine Ratio (test code = 3097-3) 13 6- [facility] CenterEstimat Glomerular Filtration Rate 2018-03-18 09:38:00* Test Item Value Reference Range Interpretation Comments Estimat Glomerular Filtration Rate (test code = 411629566) > 60 >60 Ranges were taken from the National Kidney Disease Education Program and the [facility] Kid[facility] Foundation literature.Reference ranges:60 or greater: Oisdls84-54 ( for 3 consecutive months): Chronic kidney disease 15 or less: Kidney failureMethodist [facility] Medical CenterGlucose Xzcle8957-80-77 09:38:00* Test Item Value Reference Range Interpretation Comments Glucose Level (test code = AON2397) 402 74-118 Results called to [Shell Syed RN] at 0937 on 03/18/18 by Wendie Madrigal. RB [place]. [facility] CenterCalcium Ldaqz3702-46-05 09:38:00* Test Item Value Reference Range Interpretation Comments Calcium Level (test code = 45271-5) 9.5 8.4-10.2 [facility]andodium Iryqb5015-63-49 09:38:00* Test Item Value Reference Range Interpretation Comments Sodium Level (test code = 2951-2) 137 136-145 [facility] CenterPotassium Yakkj9693-60-53 09:38:00* Test Item Value Reference Range Interpretation Comments Potassium Level (test code = 2823-3) 4.4 3.5-5.1 [facility] CenterChloride Ceirf0814-36-88 09:38:00* Test Item Value Reference Range Interpretation Comments Chloride Level (test code = 2075-0) 104 98-107 [facility] CenterCarbon Dioxide Xdust1059-75-05 09:38:00* Test Item Value Reference Range Interpretation Comments Carbon Dioxide Level (test code = 2028-9) 25 22-29 [facility] CenterAnion Wft7866-51-41 09:38:00* Test Item Value Reference Range Interpretation Comments Anion Gap (test code = 78873-9) 12.4 8-16 [facility] CenterBlood Urea Mviesofu2297-67-29 09:38:00* Test Item Value Reference Range Interpretation Comments Blood Urea Nitrogen (test code = 3094-0) 10 7-26 [facility] CenterCreatinine2018-06-06 09:38:00* Test Item Value Reference Range Interpretation Comments Creatinine (test code = 2160-0) 0.77 0.57-1.11 [facility] CenterBUN/Creatinine Ipvlb7893-86-89 09:38:00* Test Item Value Reference Range Interpretation Comments BUN/Creatinine Ratio (test code = 3097-3) 13 6-25 [facility] CenterEstimat Glomerular Filtration Rate 2018-03-18 09:38:00* Test Item Value Reference Range Interpretation Comments Estimat Glomerular Filtration Rate (test code = 125120138) > 60 >60 Ranges were taken from the National Kidney Disease Education Program and the [facility] literature.Reference ranges:60 or greater: Ypjmyy29-32 ( for 3 consecutive months): Chronic kidney disease 15 or less: Kidney failureMethodist Dallas Medical CenterGlucose Hbefp1902-87-06 09:38:00* Test Item Value Reference Range Interpretation Comments Glucose Level (test code = RXV4805) 402 74-118 HH Results called to [Shell Syed RN] at 0937 on 03/18/18 by Wendie Madrigal. RB [place]. [facility] CenterCalcium Ghirf7721-82-88 09:38:00* Test Item Value Reference Range Interpretation Comments Calcium Level (test code = 35509-1) 9.5 8.4-10.2 [facility] Levellandodium Ajmbb0107-79-40 09:38:00* Test Item Value Reference Range Interpretation Comments Sodium Level (test code = 2951-2) 137 136-145 [facility] CenterPotassium Gjkqb6921-56-66 09:38:00* Test Item Value Reference Range Interpretation Comments Potassium Level (test code = 2823-3) 4.4 3.5-5.1 [facility] CenterChloride Klsfm3705-55-14 09:38:00* Test Item Value Reference Range Interpretation Comments Chloride Level (test code = 2075-0) 104 98-107 [facility] CenterCarbon Dioxide Vleqt9778-48-18 09:38:00* Test Item Value Reference Range Interpretation Comments Carbon Dioxide Level (test code = 2028-9) 25 22-29 [facility] CenterAnion Huh5719-71-87 09:38:00* Test Item Value Reference Range Interpretation Comments Anion Gap (test code = 57039-5) 12.4 8-16 [facility] CenterBlood Urea Gqaeinke4414-68-62 09:38:00* Test Item Value Reference Range Interpretation Comments Blood Urea Nitrogen (test code = 3094-0) 10 7-26 [facility] CenterCreatinine2018-06-06 09:38:00* Test Item Value Reference Range Interpretation Comments Creatinine (test code = 2160-0) 0.77 0.57-1.11 [facility] CenterBUN/Creatinine Ravcc4044-29-84 09:38:00* Test Item Value Reference Range Interpretation Comments BUN/Creatinine Ratio (test code = 3097-3) 13 6-25 [facility] CenterEstimat Glomerular Filtration Rate 2018-03-18 09:38:00* Test Item Value Reference Range Interpretation Comments Estimat Glomerular Filtration Rate (test code = 676525690) > 60 >60 Ranges were taken from the National Kidney Disease Education Program and the Replaced by [facility] Kidney Foundation literature.Reference ranges:60 or greater: Kdpodv62-71 ( for 3 consecutive months): Chronic kidney disease 15 or less: Kidney failureMethodist [facility] Medical CenterGlucose Oyhcm8958-63-40 09:38:00* Test Item Value Reference Range Interpretation Comments Glucose Level (test code = ZPF5763) 402 74-118 HH Results called to [Shell Syed RN] at 0937 on 03/18/18 by Wendie Madrigal. RB [place]. [facility] CenterCalcium Khbcy4641-21-94 09:38:00* Test Item Value Reference Range Interpretation Comments Calcium Level (test code = 88954-5) 9.5 8.4-10.2 [facility] CenterWhite Blood Kinoj2765-94-18 09:34:00* Test Item Value Reference Range Interpretation Comments White Blood Count (test code = 6690-2) 6.36 4.8-10.8 [facility] CenterRed Blood Hxiqj5844-51-12 09:34:00* Test Item Value Reference Range Interpretation Comments Red Blood Count (test code = 789-8) 3.86 3.6-5.1 [facility] CenterHemoglobin2018-06-06 09:34:00* Test Item Value Reference Range Interpretation Comments Hemoglobin (test code = 31625-5) 11.5 12.0-16.0 L [facility] CenterHematocrit2018-06-06 09:34:00* Test Item Value Reference Range Interpretation Comments Hematocrit (test code = 4544-3) 33.4 34.2-44.1 L [facility] CenterMean Corpuscular Byuuof4596-90-61 09:34:00* Test Item Value Reference Range Interpretation Comments Mean Corpuscular Volume (test code = 787-2) 86.5 81-99 [facility] CenterMean Corpuscular Vokbdihvti1309-27-55 09:34:00* Test Item Value Reference Range Interpretation Comments Mean Corpuscular Hemoglobin (test code = 785-6) 29.8 28-32 [facility] CenterMean Corpuscular Hemoglobin Concent 2018-03-18 09:34:00* Test Item Value Reference Range Interpretation Comments Mean Corpuscular Hemoglobin Concent (test code = 786-4) 34.4 31-35 [facility] CenterRed Cell Distribution Uarsd9856-08-74 09:34:00* Test Item Value Reference Range Interpretation Comments Red Cell Distribution Width (test code = 61986-0) 12.4 11.7 -14.4 [facility] CenterPlatelet Cxcvg2954-02-25 09:34:00* Test Item Value Reference Range Interpretation Comments Platelet Count (test code = 777-3) 205 140-360 [facility] CenterNeutrophils (%) (Auto)2018-03-18 09:34:00 * Test Item Value Reference Range Interpretation Comments Neutrophils (%) (Auto) (test code = 54064-1) 62.4 38.7-80.0 [facility] CenterLymphocytes (%) (Auto)2018-03-18 09:34:00 * Test Item Value Reference Range Interpretation Comments Lymphocytes (%) (Auto) (test code = 736-9) 30.3 18.0-39.1 [facility] CenterMonocytes (%) (Auto)2018-03-18 09:34:00* Test Item Value Reference Range Interpretation Comments Monocytes (%) (Auto) (test code = 5905-5) 6.6 4.4-11.3 [facility] CenterEosinophils (%) (Auto)2018-03-18 09:34:00 * Test Item Value Reference Range Interpretation Comments Eosinophils (%) (Auto) (test code = 713-8) 0.2 0.0-6.0 [facility] CenterBasophils (%) (Auto)2018-03-18 09:34:00* Test Item Value Reference Range Interpretation Comments Basophils (%) (Auto) (test code = 706-2) 0.3 0.0-1.0 [facility] CenterIM GRANULOCYTES %2018-03-18 09:34:00* Test Item Value Reference Range Interpretation Comments IM GRANULOCYTES % (test code = IM GRANULOCYTES %) 0.2 0.0- 1.0 [facility] CenterNeutrophils # (Auto)2018-03-18 09:34:00* Test Item Value Reference Range Interpretation Comments Neutrophils # (Auto) (test code = 751-8) 4.0 2.1-6.9 [facility] CenterLymphocytes # (Auto)2018-03-18 09:34:00* Test Item Value Reference Range Interpretation Comments Lymphocytes # (Auto) (test code = 45132-6) 1.9 1.0-3.2 [facility] CenterMonocytes # (Auto)2018-03-18 09:34:00* Test Item Value Reference Range Interpretation Comments Monocytes # (Auto) (test code = 742-7) 0.4 0.2-0.8 [facility] CenterEosinophils # (Auto)2018-03-18 09:34:00* Test Item Value Reference Range Interpretation Comments Eosinophils # (Auto) (test code = 711-2) 0.0 0.0-0.4 [facility] CenterBasophils # (Auto)2018-03-18 09:34:00* Test Item Value Reference Range Interpretation Comments Basophils # (Auto) (test code = 704-7) 0.0 0.0-0.1 [facility] CenterAbsolute Immature Granulocyte (auto 2018-03-18 09:34:00* Test Item Value Reference Range Interpretation Comments Absolute Immature Granulocyte (auto (chiquita t code = Absolute Immature Granulocyte (auto) 0.01 0-0.1 [facility] CenterWhite Blood Fwwph1292-05-90 09:34:00* Test Item Value Reference Range Interpretation Comments White Blood Count (test code = 6690-2) 6.36 4.8-10.8 [facility] CenterRed Blood Poxrk8423-12-21 09:34:00* Test Item Value Reference Range Interpretation Comments Red Blood Count (test code = 789-8) 3.86 3.6-5.1 [facility] CenterHemoglobin2018-06-06 09:34:00* Test Item Value Reference Range Interpretation Comments Hemoglobin (test code = 55453-9) 11.5 12.0-16.0 L [facility] CenterHematocrit2018-06-06 09:34:00* Test Item Value Reference Range Interpretation Comments Hematocrit (test code = 4544-3) 33.4 34.2-44.1 L [facility] CenterMean Corpuscular Irhsmg4679-64-58 09:34:00* Test Item Value Reference Range Interpretation Comments Mean Corpuscular Volume (test code = 787-2) 86.5 81-99 [facility] CenterMean Corpuscular Izhskhbjel3720-62-75 09:34:00* Test Item Value Reference Range Interpretation Comments Mean Corpuscular Hemoglobin (test code = 785-6) 29.8 28-32 [facility] CenterMean Corpuscular Hemoglobin Concent 2018-03-18 09:34:00* Test Item Value Reference Range Interpretation Comments Mean Corpuscular Hemoglobin Concent (test code = 786-4) 34.4 31-35 [facility] CenterRed Cell Distribution Upxwi2088-72-45 09:34:00* Test Item Value Reference Range Interpretation Comments Red Cell Distribution Width (test code = 28226-3) 12.4 11.7 -14.4 [facility] CenterPlatelet Tjngr6054-27-63 09:34:00* Test Item Value Reference Range Interpretation Comments Platelet Count (test code = 777-3) 205 140-360 [facility] CenterNeutrophils (%) (Auto)2018-03-18 09:34:00 * Test Item Value Reference Range Interpretation Comments Neutrophils (%) (Auto) (test code = 85046-5) 62.4 38.7-80.0 [facility] CenterLymphocytes (%) (Auto)2018-03-18 09:34:00 * Test Item Value Reference Range Interpretation Comments Lymphocytes (%) (Auto) (test code = 736-9) 30.3 18.0-39.1 [facility] CenterMonocytes (%) (Auto)2018-03-18 09:34:00* Test Item Value Reference Range Interpretation Comments Monocytes (%) (Auto) (test code = 5905-5) 6.6 4.4-11.3 [facility] CenterEosinophils (%) (Auto)2018-03-18 09:34:00 * Test Item Value Reference Range Interpretation Comments Eosinophils (%) (Auto) (test code = 713-8) 0.2 0.0-6.0 [facility] CenterBasophils (%) (Auto)2018-03-18 09:34:00* Test Item Value Reference Range Interpretation Comments Basophils (%) (Auto) (test code = 706-2) 0.3 0.0-1.0 [facility] CenterIM GRANULOCYTES %2018-03-18 09:34:00* Test Item Value Reference Range Interpretation Comments IM GRANULOCYTES % (test code = IM GRANULOCYTES %) 0.2 0.0- 1.0 [facility] CenterNeutrophils # (Auto)2018-03-18 09:34:00* Test Item Value Reference Range Interpretation Comments Neutrophils # (Auto) (test code = 751-8) 4.0 2.1-6.9 [facility] CenterLymphocytes # (Auto)2018-03-18 09:34:00* Test Item Value Reference Range Interpretation Comments Lymphocytes # (Auto) (test code = 26184-7) 1.9 1.0-3.2 [facility] CenterMonocytes # (Auto)2018-03-18 09:34:00* Test Item Value Reference Range Interpretation Comments Monocytes # (Auto) (test code = 742-7) 0.4 0.2-0.8 [facility] CenterEosinophils # (Auto)2018-03-18 09:34:00* Test Item Value Reference Range Interpretation Comments Eosinophils # (Auto) (test code = 711-2) 0.0 0.0-0.4 [facility] CenterBasophils # (Auto)2018-03-18 09:34:00* Test Item Value Reference Range Interpretation Comments Basophils # (Auto) (test code = 704-7) 0.0 0.0-0.1 [facility] CenterAbsolute Immature Granulocyte (auto 2018-03-18 09:34:00* Test Item Value Reference Range Interpretation Comments Absolute Immature Granulocyte (auto (chiquita t code = Absolute Immature Granulocyte (auto) 0.01 0-0.1 [facility] CenterWhite Blood Iklfb9849-31-59 09:34:00* Test Item Value Reference Range Interpretation Comments White Blood Count (test code = 6690-2) 6.36 4.8-10.8 [facility] CenterRed Blood Zpldk0904-96-78 09:34:00* Test Item Value Reference Range Interpretation Comments Red Blood Count (test code = 789-8) 3.86 3.6-5.1 [facility] CenterHemoglobin2018-06-06 09:34:00* Test Item Value Reference Range Interpretation Comments Hemoglobin (test code = 62172-0) 11.5 12.0-16.0 L [facility] CenterHematocrit2018-06-06 09:34:00* Test Item Value Reference Range Interpretation Comments Hematocrit (test code = 4544-3) 33.4 34.2-44.1 L [facility] CenterMean Corpuscular Heydsg2520-26-58 09:34:00* Test Item Value Reference Range Interpretation Comments Mean Corpuscular Volume (test code = 787-2) 86.5 81-99 [facility] CenterMean Corpuscular Ptzmplzfqi7588-83-50 09:34:00* Test Item Value Reference Range Interpretation Comments Mean Corpuscular Hemoglobin (test code = 785-6) 29.8 28-32 [facility] CenterMean Corpuscular Hemoglobin Concent 2018-03-18 09:34:00* Test Item Value Reference Range Interpretation Comments Mean Corpuscular Hemoglobin Concent (test code = 786-4) 34.4 31-35 [facility] CenterRed Cell Distribution Wdxni5046-26-60 09:34:00* Test Item Value Reference Range Interpretation Comments Red Cell Distribution Width (test code = 98455-3) 12.4 11.7 -14.4 [facility] CenterPlatelet Yisyi0335-33-62 09:34:00* Test Item Value Reference Range Interpretation Comments Platelet Count (test code = 777-3) 205 140-360 [facility] CenterNeutrophils (%) (Auto)2018-03-18 09:34:00 * Test Item Value Reference Range Interpretation Comments Neutrophils (%) (Auto) (test code = 10340-0) 62.4 38.7-80.0 [facility] CenterLymphocytes (%) (Auto)2018-03-18 09:34:00 * Test Item Value Reference Range Interpretation Comments Lymphocytes (%) (Auto) (test code = 736-9) 30.3 18.0-39.1 [facility] CenterMonocytes (%) (Auto)2018-03-18 09:34:00* Test Item Value Reference Range Interpretation Comments Monocytes (%) (Auto) (test code = 5905-5) 6.6 4.4-11.3 [facility] CenterEosinophils (%) (Auto)2018-03-18 09:34:00 * Test Item Value Reference Range Interpretation Comments Eosinophils (%) (Auto) (test code = 713-8) 0.2 0.0-6.0 [facility] CenterBasophils (%) (Auto)2018-03-18 09:34:00* Test Item Value Reference Range Interpretation Comments Basophils (%) (Auto) (test code = 706-2) 0.3 0.0-1.0 [facility] CenterIM GRANULOCYTES %2018-03-18 09:34:00* Test Item Value Reference Range Interpretation Comments IM GRANULOCYTES % (test code = IM GRANULOCYTES %) 0.2 0.0- 1.0 [facility] CenterNeutrophils # (Auto)2018-03-18 09:34:00* Test Item Value Reference Range Interpretation Comments Neutrophils # (Auto) (test code = 751-8) 4.0 2.1-6.9 [facility] CenterLymphocytes # (Auto)2018-03-18 09:34:00* Test Item Value Reference Range Interpretation Comments Lymphocytes # (Auto) (test code = 03665-7) 1.9 1.0-3.2 [facility] CenterMonocytes # (Auto)2018-03-18 09:34:00* Test Item Value Reference Range Interpretation Comments Monocytes # (Auto) (test code = 742-7) 0.4 0.2-0.8 [facility] CenterEosinophils # (Auto)2018-03-18 09:34:00* Test Item Value Reference Range Interpretation Comments Eosinophils # (Auto) (test code = 711-2) 0.0 0.0-0.4 [facility] CenterBasophils # (Auto)2018-03-18 09:34:00* Test Item Value Reference Range Interpretation Comments Basophils # (Auto) (test code = 704-7) 0.0 0.0-0.1 [facility] CenterAbsolute Immature Granulocyte (auto 2018-03-18 09:34:00* Test Item Value Reference Range Interpretation Comments Absolute Immature Granulocyte (auto (chiquita t code = Absolute Immature Granulocyte (auto) 0.01 0-0.1 [facility] CenterWhite Blood Eiklr0288-52-35 09:34:00* Test Item Value Reference Range Interpretation Comments White Blood Count (test code = 6690-2) 6.36 4.8-10.8 [facility] CenterRed Blood Bnrlm1747-24-03 09:34:00* Test Item Value Reference Range Interpretation Comments Red Blood Count (test code = 789-8) 3.86 3.6-5.1 [facility] CenterHemoglobin2018-06-06 09:34:00* Test Item Value Reference Range Interpretation Comments Hemoglobin (test code = 36273-0) 11.5 12.0-16.0 L [facility] CenterHematocrit2018-06-06 09:34:00* Test Item Value Reference Range Interpretation Comments Hematocrit (test code = 4544-3) 33.4 34.2-44.1 L [facility] CenterMean Corpuscular Vgezsd5957-58-79 09:34:00* Test Item Value Reference Range Interpretation Comments Mean Corpuscular Volume (test code = 787-2) 86.5 81-99 [facility] CenterMean Corpuscular Ftnfjnfjuq3160-90-21 09:34:00* Test Item Value Reference Range Interpretation Comments Mean Corpuscular Hemoglobin (test code = 785-6) 29.8 28-32 [facility] CenterMean Corpuscular Hemoglobin Concent 2018-03-18 09:34:00* Test Item Value Reference Range Interpretation Comments Mean Corpuscular Hemoglobin Concent (test code = 786-4) 34.4 31-35 [facility] CenterRed Cell Distribution Falgd1308-59-36 09:34:00* Test Item Value Reference Range Interpretation Comments Red Cell Distribution Width (test code = 22366-0) 12.4 11.7 -14.4 [facility] CenterPlatelet Vmhco0764-60-82 09:34:00* Test Item Value Reference Range Interpretation Comments Platelet Count (test code = 777-3) 205 140-360 [facility] CenterNeutrophils (%) (Auto)2018-03-18 09:34:00 * Test Item Value Reference Range Interpretation Comments Neutrophils (%) (Auto) (test code = 72917-9) 62.4 38.7-80.0 [facility] CenterLymphocytes (%) (Auto)2018-03-18 09:34:00 * Test Item Value Reference Range Interpretation Comments Lymphocytes (%) (Auto) (test code = 736-9) 30.3 18.0-39.1 [facility] CenterMonocytes (%) (Auto)2018-03-18 09:34:00* Test Item Value Reference Range Interpretation Comments Monocytes (%) (Auto) (test code = 5905-5) 6.6 4.4-11.3 [facility] CenterEosinophils (%) (Auto)2018-03-18 09:34:00 * Test Item Value Reference Range Interpretation Comments Eosinophils (%) (Auto) (test code = 713-8) 0.2 0.0-6.0 [facility] CenterBasophils (%) (Auto)2018-03-18 09:34:00* Test Item Value Reference Range Interpretation Comments Basophils (%) (Auto) (test code = 706-2) 0.3 0.0-1.0 [facility] CenterIM GRANULOCYTES %2018-03-18 09:34:00* Test Item Value Reference Range Interpretation Comments IM GRANULOCYTES % (test code = IM GRANULOCYTES %) 0.2 0.0- 1.0 [facility] CenterNeutrophils # (Auto)2018-03-18 09:34:00* Test Item Value Reference Range Interpretation Comments Neutrophils # (Auto) (test code = 751-8) 4.0 2.1-6.9 [facility] CenterLymphocytes # (Auto)2018-03-18 09:34:00* Test Item Value Reference Range Interpretation Comments Lymphocytes # (Auto) (test code = 81851-1) 1.9 1.0-3.2 [facility] CenterMonocytes # (Auto)2018-03-18 09:34:00* Test Item Value Reference Range Interpretation Comments Monocytes # (Auto) (test code = 742-7) 0.4 0.2-0.8 [facility] CenterEosinophils # (Auto)2018-03-18 09:34:00* Test Item Value Reference Range Interpretation Comments Eosinophils # (Auto) (test code = 711-2) 0.0 0.0-0.4 [facility] CenterBasophils # (Auto)2018-03-18 09:34:00* Test Item Value Reference Range Interpretation Comments Basophils # (Auto) (test code = 704-7) 0.0 0.0-0.1 [facility] CenterAbsolute Immature Granulocyte (auto 2018-03-18 09:34:00* Test Item Value Reference Range Interpretation Comments Absolute Immature Granulocyte (auto (chiquita t code = Absolute Immature Granulocyte (auto) 0.01 0-0.1 [facility] CenterErythrocyte Sedimentation Poxy5220-21-20 10:22:00* Test Item Value Reference Range Interpretation Comments Erythrocyte Sedimentation Rate (test code = 4537-7) 20 0- 20 [facility] CenterErythrocyte Sedimentation Bntj5629-92-22 10:22:00* Test Item Value Reference Range Interpretation Comments Erythrocyte Sedimentation Rate (test code = 4537-7) 20 0- 20 [facility] CenterErythrocyte Sedimentation Bgjz1400-36-80 10:22:00* Test Item Value Reference Range Interpretation Comments Erythrocyte Sedimentation Rate (test code = 4537-7) 20 0- 20 [facility] CenterErythrocyte Sedimentation Pwdi8729-00-85 10:22:00* Test Item Value Reference Range Interpretation Comments Erythrocyte Sedimentation Rate (test code = 4537-7) 20 0- 20 [facility] CenterTriglycerides Ytwgm3510-68-17 09:40:00* Test Item Value Reference Range Interpretation Comments Triglycerides Level (test code = 2571-8) 160 0-149 H [facility] CenterCholesterol Iejfb6843-85-09 09:40:00* Test Item Value Reference Range Interpretation Comments Cholesterol Level (test code = 2093-3) 241 0-199 H Less than 200 mg/dL Low Nmzt162 - 239 mg/dL Borderline Wyex330 m g/dl and greater High Risk [facility] CenterLDL Fhohhxsbdga7621-41-00 09:40:00* Test Item Value Reference Range Interpretation Comments LDL Cholesterol (test code = 2089-1) 165 60-130 H [facility] CenterHDL Kgaqkbhjbll2508-71-57 09:40:00* Test Item Value Reference Range Interpretation Comments HDL Cholesterol (test code = 2085-9) 44 40-60 [facility] CenterCholesterol/HDL Mjwth8044-32-77 09:40:00 * Test Item Value Reference Range Interpretation Comments Cholesterol/HDL Ratio (test code = 9830-1) 5.5 3.0-3.6 H [facility] CenterTriglycerides Bznch8565-46-17 09:40:00* Test Item Value Reference Range Interpretation Comments Triglycerides Level (test code = 2571-8) 160 0-149 H [facility] CenterCholesterol Wxdgf0796-12-62 09:40:00* Test Item Value Reference Range Interpretation Comments Cholesterol Level (test code = 2093-3) 241 0-199 H Less than 200 mg/dL Low Aocu761 - 239 mg/dL Borderline Sxcj706 m g/dl and greater High Risk [facility] CenterLDL Kjtymrhcldn6779-03-31 09:40:00* Test Item Value Reference Range Interpretation Comments LDL Cholesterol (test code = 2089-1) 165 60-130 H [facility] Sqolflcyyew0083-44-59 09:40:00* Test Item Value Reference Range Interpretation Comments HDL Cholesterol (test code = 2085-9) 44 40-60 [facility] CenterCholesterol/HDL Wmdad7285-99-66 09:40:00 * Test Item Value Reference Range Interpretation Comments Cholesterol/HDL Ratio (test code = 9830-1) 5.5 3.0-3.6 H [facility] CenterTriglycerides Dersr1487-81-89 09:40:00* Test Item Value Reference Range Interpretation Comments Triglycerides Level (test code = 2571-8) 160 0-149 H [facility] CenterCholesterol Mewix3171-32-34 09:40:00* Test Item Value Reference Range Interpretation Comments Cholesterol Level (test code = 2093-3) 241 0-199 H Less than 200 mg/dL Low Uevp380 - 239 mg/dL Borderline Csun715 m g/dl and greater High Risk [facility] CenterLDL Bmrkpourwcr3178-12-45 09:40:00* Test Item Value Reference Range Interpretation Comments LDL Cholesterol (test code = 2089-1) 165 60-130 H [facility] Bnqgyttheqe8754-86-82 09:40:00* Test Item Value Reference Range Interpretation Comments HDL Cholesterol (test code = 2085-9) 44 40-60 [facility] CenterCholesterol/HDL Hocpw4891-08-47 09:40:00 * Test Item Value Reference Range Interpretation Comments Cholesterol/HDL Ratio (test code = 9830-1) 5.5 3.0-3.6 H [facility] CenterTriglycerides Ipgjm7644-84-62 09:40:00* Test Item Value Reference Range Interpretation Comments Triglycerides Level (test code = 2571-8) 160 0-149 H [facility] CenterCholesterol Awnrx2616-41-13 09:40:00* Test Item Value Reference Range Interpretation Comments Cholesterol Level (test code = 2093-3) 241 0-199 H Less than 200 mg/dL Low Dkzf921 - 239 mg/dL Borderline Ujuk575 m g/dl and greater High Risk [facility] CenterLDL Isfiafcdnmz7474-86-74 09:40:00* Test Item Value Reference Range Interpretation Comments LDL Cholesterol (test code = 2089-1) 165 60-130 [facility] [facility] CenterHDL Totbquhiopm4470-40-79 09:40:00* Test Item Value Reference Range Interpretation Comments HDL Cholesterol (test code = 2085-9) 44 40-60 [facility]Ch[facility]HDL Yguyy6527-88-21 09:40:00 * Test Item Value Reference Range Interpretation Comments Cholesterol/HDL Ratio (test code = 9830-1) 5.5 3.0-3.6 H [facility] CenterHemoglobin A1c Vqwpppd5615-86-72 09:33:00 * Test Item Value Reference Range Interpretation Comments Hemoglobin A1c Percent (test code = Hemoglobin A1c Percent) 14.6 4.0-7.0 H [facility] CenterHemoglobin A1c Sgbsdck8767-43-18 09:33:00 * Test Item Value Reference Range Interpretation Comments Hemoglobin A1c Percent (test code = Hemoglobin A1c Percent) 14.6 4.0-7.0 H [facility] CenterHemoglobin A1c Jjddloz8237-23-07 09:33:00 * Test Item Value Reference Range Interpretation Comments Hemoglobin A1c Percent (test code = Hemoglobin A1c Percent) 14.6 4.0-7.0 H [facility] CenterHemoglobin A1c Rfqzbjj5598-26-83 09:33:00 * Test Item Value Reference Range Interpretation Comments Hemoglobin A1c Percent (test code = Hemoglobin A1c Percent) 14.6 4.0-7.0 H [facility] CenterTotal Pmgygqwqm7664-43-12 22:35:00* Test Item Value Reference Range Interpretation Comments Total Bilirubin (test code = 1975-2) 0.2 0.2-1.2 [facility] CenterAspartate Amino Transf (AST/SGOT) 2018-03-16 22:35:00* Test Item Value Reference Range Interpretation Comments Aspartate Amino Transf (AST/SGOT) (test code = Aspartate Amino Transf (AST/SGOT)) 10 34 [facility] CenterAlanine Aminotransferase (ALT/SGPT) 2018-03-16 22:35:00* Test Item Value Reference Range Interpretation Comments Alanine Aminotransferase (ALT/SGPT) (test code = 1742-6) 15 0-55 [facility] CenterTotal Jddkykr4378-70-76 22:35:00* Test Item Value Reference Range Interpretation Comments Total Protein (test code = 2885-2) 7.3 6.5-8.1 [facility] CenterAlbumin2018-06-04 22:35:00* Test Item Value Reference Range Interpretation Comments Albumin (test code = 1751-7) 3.8 3.5-5.0 [facility] CenterGlobulin2018-06-04 22:35:00* Test Item Value Reference Range Interpretation Comments Globulin (test code = 65212-5) 3.5 2.3-3.5 [facility] CenterAlbumin/Globulin Kcxed5192-96-22 22:35:00 * Test Item Value Reference Range Interpretation Comments Albumin/Globulin Ratio (test code = 1759-0) 1.1 0.8-2.0 [facility] CenterAlkaline Knwwcusauob7742-17-33 22:35:00* Test Item Value Reference Range Interpretation Comments Alkaline Phosphatase (test code = 6768-6) 150 40-150 [facility] CenterTotal Cdeokgmad8711-10-65 22:35:00* Test Item Value Reference Range Interpretation Comments Total Bilirubin (test code = 1975-2) 0.2 0.2-1.2 [facility] CenterAspartate Amino Transf (AST/SGOT) 2018-03-16 22:35:00* Test Item Value Reference Range Interpretation Comments Aspartate Amino Transf (AST/SGOT) (test code = Aspartate Amino Transf (AST/SGOT)) 10 34 [facility] CenterAlanine Aminotransferase (ALT/SGPT) 2018-03-16 22:35:00* Test Item Value Reference Range Interpretation Comments Alanine Aminotransferase (ALT/SGPT) (test code = 1742-6) 15 0-55 [facility] CenterTotal Yzgdwyv0919-74-46 22:35:00* Test Item Value Reference Range Interpretation Comments Total Protein (test code = 2885-2) 7.3 6.5-8.1 [facility] CenterAlbumin2018-06-04 22:35:00* Test Item Value Reference Range Interpretation Comments Albumin (test code = 1751-7) 3.8 3.5-5.0 [facility] CenterGlobulin2018-06-04 22:35:00* Test Item Value Reference Range Interpretation Comments Globulin (test code = 19754-9) 3.5 2.3-3.5 [facility] CenterAlbumin/Globulin Mugro8208-62-43 22:35:00 * Test Item Value Reference Range Interpretation Comments Albumin/Globulin Ratio (test code = 1759-0) 1.1 0.8-2.0 [facility] CenterAlkaline Aegrymtvpzv0078-25-68 22:35:00* Test Item Value Reference Range Interpretation Comments Alkaline Phosphatase (test code = 6768-6) 150 40-150 [facility] Lacursnux5800-70-78 22:35:00* Test Item Value Reference Range Interpretation Comments Total Bilirubin (test code = 1975-2) 0.2 0.2-1.2 [facility] CenterAspartate Amino Transf (AST/SGOT) 2018-03-16 22:35:00* Test Item Value Reference Range Interpretation Comments Aspartate Amino Transf (AST/SGOT) (test code = Aspartate Amino Transf (AST/SGOT)) 10 5-34 [facility] CenterAlanine Aminotransferase (ALT/SGPT) 2018-03-16 22:35:00* Test Item Value Reference Range Interpretation Comments Alanine Aminotransferase (ALT/SGPT) (test code = 1742-6) 15 0-55 [facility] Brbxjdb4296-10-12 22:35:00* Test Item Value Reference Range Interpretation Comments Total Protein (test code = 2885-2) 7.3 6.5-8.1 [facility] CenterAlbumin2018-06-04 22:35:00* Test Item Value Reference Range Interpretation Comments Albumin (test code = 1751-7) 3.8 3.5-5.0 [facility] CenterGlobulin2018-06-04 22:35:00* Test Item Value Reference Range Interpretation Comments Globulin (test code = 80300-5) 3.5 2.3-3.5 [facility] CenterAlbumin/Globulin Zqefh1168-50-64 22:35:00 * Test Item Value Reference Range Interpretation Comments Albumin/Globulin Ratio (test code = 1759-0) 1.1 0.8-2.0 [facility] CenterAlkaline Hkwibuffifi2283-46-94 22:35:00* Test Item Value Reference Range Interpretation Comments Alkaline Phosphatase (test code = 6768-6) 150 40-150 [facility] CenterTotal Sokcenliq8240-56-46 22:35:00* Test Item Value Reference Range Interpretation Comments Total Bilirubin (test code = 1975-2) 0.2 0.2-1.2 [facility] CenterAspartate Amino Transf (AST/SGOT) 2018-03-16 22:35:00* Test Item Value Reference Range Interpretation Comments Aspartate Amino Transf (AST/SGOT) (test code = Aspartate Amino Transf (AST/SGOT)) 10 5-34 [facility] CenterAlanine Aminotransferase (ALT/SGPT) 2018-03-16 22:35:00* Test Item Value Reference Range Interpretation Comments Alanine Aminotransferase (ALT/SGPT) (test code = 1742-6) 15 0-55 [facility] CenterTotal Kyeppez9511-90-03 22:35:00* Test Item Value Reference Range Interpretation Comments Total Protein (test code = 2885-2) 7.3 6.5-8.1 [facility] CenterAlbumin2018-06-04 22:35:00* Test Item Value Reference Range Interpretation Comments Albumin (test code = 1751-7) 3.8 3.5-5.0 [facility] CenterGlobulin2018-06-04 22:35:00* Test Item Value Reference Range Interpretation Comments Globulin (test code = 23985-8) 3.5 2.3-3.5 [facility] CenterAlbumin/Globulin Xgapu2096-71-10 22:35:00 * Test Item Value Reference Range Interpretation Comments Albumin/Globulin Ratio (test code = 1759-0) 1.1 0.8-2.0 [facility] CenterAlkaline Orupxmecnoe2425-22-41 22:35:00* Test Item Value Reference Range Interpretation Comments Alkaline Phosphatase (test code = 6768-6) 150 40-150 [facility] Chorionic Gonadotropin, Qual 2018-03-16 22:23:00* Test Item Value Reference Range Interpretation Comments Human Chorionic Gonadotropin, Qual (test code = 2118-8) NEGATIVE NEGATIVE [facility] Chorionic Gonadotropin, Qual 2018-03-16 22:23:00* Test Item Value Reference Range Interpretation Comments Human Chorionic Gonadotropin, Qual (test code = 2118-8) NEGATIVE NEGATIVE [facility] Chorionic Gonadotropin, Qual 2018-03-16 22:23:00* Test Item Value Reference Range Interpretation Comments Human Chorionic Gonadotropin, Qual (test code = 2118-8) NEGATIVE NEGATIVE [facility] Chorionic Gonadotropin, Qual 2018-03-16 22:23:00* Test Item Value Reference Range Interpretation Comments Human Chorionic Gonadotropin, Qual (test code = 2118-8) NEGATIVE NEGATIVE [facility] Tmwlaww3219-26-50 18:08:00* Test Item Value Reference Range Interpretation Comments Blood Culture (test code = 72558990) NO GROWTH AFTER 5 DAYS, FINAL REPORT [facility] Xhnfhio5300-80-93 18:08:00* Test Item Value Reference Range Interpretation Comments Blood Culture (test code = 69500444) NO GROWTH AFTER 5 DAYS, FINAL REPORT [facility] Mmtwepn2693-73-04 18:08:00* Test Item Value Reference Range Interpretation Comments Blood Culture (test code = 15823240) NO GROWTH AFTER 5 DAYS, FINAL REPORT [facility] Zdprggp3764-90-90 18:08:00* Test Item Value Reference Range Interpretation Comments Blood Culture (test code = 76656378) NO GROWTH AFTER 5 DAYS, FINAL REPORT [facility] CenterLactic Acid Scueh3757-55-04 00:19:00* Test Item Value Reference Range Interpretation Comments Lactic Acid Level (test code = Lactic Acid Level) 13.4 4.5- 19.8 [facility] CenterLactic Acid Xtzzg3527-07-63 00:19:00* Test Item Value Reference Range Interpretation Comments Lactic Acid Level (test code = Lactic Acid Level) 13.4 4.5- 19.8 [facility] CenterLactic Acid Izmne8251-96-82 00:19:00* Test Item Value Reference Range Interpretation Comments Lactic Acid Level (test code = Lactic Acid Level) 13.4 4.5- 19.8 [facility] CenterLactic Acid Sxwnd6215-02-90 00:19:00* Test Item Value Reference Range Interpretation Comments Lactic Acid Level (test code = Lactic Acid Level) 13.4 4.5- 19.8 [facility] Bllng8769-87-66 00:17:00* Test Item Value Reference Range Interpretation Comments Sodium Level (test code = 2951-2) 134 136-145 L [facility] CenterPotassium Qzvjc5940-75-89 00:17:00* Test Item Value Reference Range Interpretation Comments Potassium Level (test code = 2823-3) 3.4 3.5-5.1 L [facility] CenterChloride Foafi5437-98-30 00:17:00* Test Item Value Reference Range Interpretation Comments Chloride Level (test code = 2075-0) 102 98-107 [facility] CenterCarbon Dioxide Ughej2684-23-73 00:17:00* Test Item Value Reference Range Interpretation Comments Carbon Dioxide Level (test code = 2028-9) 23 22-29 [facility] CenterAnion Lli1058-93-95 00:17:00* Test Item Value Reference Range Interpretation Comments Anion Gap (test code = 82213-5) 12.4 8-16 [facility] CenterBlood Urea Bnpevzbn2244-04-37 00:17:00* Test Item Value Reference Range Interpretation Comments Blood Urea Nitrogen (test code = 3094-0) 5 7-26 L [facility] CenterCreatinine2017-06-20 00:17:00* Test Item Value Reference Range Interpretation Comments Creatinine (test code = 2160-0) 0.71 0.57-1.11 [facility] CenterBUN/Creatinine Ojvee1142-50-52 00:17:00* Test Item Value Reference Range Interpretation Comments BUN/Creatinine Ratio (test code = 3097-3) 7 6-25 [facility] CenterEstimat Glomerular Filtration Rate 2017-04-01 00:17:00* Test Item Value Reference Range Interpretation Comments Estimat Glomerular Filtration Rate (test code = 43115-3) 60- >60 Ranges were taken from the National Kidney Disease Education Program and the [facility] literature.Reference ranges:60 or greater: Ccqhqo12-29 ( for 3 consecutive months): Chronic kidney disease 15 or less: Kidney failureMethod[facility] Medical CenterGlucose Lxill7173-40-04 00:17:00* Test Item Value Reference Range Interpretation Comments Glucose Level (test code = QRY0606) 294 74-118 H [facility] CenterCalcium Grfcz6874-32-58 00:17:00* Test Item Value Reference Range Interpretation Comments Calcium Level (test code = 14975-9) 8.8 8.4-10.2 [facility] Vgujz4957-82-53 00:17:00* Test Item Value Reference Range Interpretation Comments Sodium Level (test code = 2951-2) 134 136-145 L [facility] CenterPotassium Fiwlg1340-12-20 00:17:00* Test Item Value Reference Range Interpretation Comments Potassium Level (test code = 2823-3) 3.4 3.5-5.1 L [facility] CenterChloride Pyjoz6484-02-28 00:17:00* Test Item Value Reference Range Interpretation Comments Chloride Level (test code = 2075-0) 102 98-107 [facility] CenterCarbon Dioxide Mpjxs4949-80-92 00:17:00* Test Item Value Reference Range Interpretation Comments Carbon Dioxide Level (test code = 2028-9) 23 22-29 [facility] CenterAnion Sye7524-42-04 00:17:00* Test Item Value Reference Range Interpretation Comments Anion Gap (test code = 33399-0) 12.4 8-16 [facility] CenterBlood Urea Wwxavhtl6004-91-33 00:17:00* Test Item Value Reference Range Interpretation Comments Blood Urea Nitrogen (test code = 3094-0) 5 7-26 L [facility] CenterCreatinine2017-06-20 00:17:00* Test Item Value Reference Range Interpretation Comments Creatinine (test code = 2160-0) 0.71 0.57-1.11 [facility] CenterBUN/Creatinine Eeugu2031-07-20 00:17:00* Test Item Value Reference Range Interpretation Comments BUN/Creatinine Ratio (test code = 3097-3) 7 6-25 [facility] CenterEstimat Glomerular Filtration Rate 2017-04-01 00:17:00* Test Item Value Reference Range Interpretation Comments Estimat Glomerular Filtration Rate (test code = 75638-4) 60- >60 Ranges were taken from the National Kidney Disease Education Program and the [facility] literature.Reference ranges:60 or greater: Ofqmli02-13 ( for 3 consecutive months): Chronic kidney disease 15 or less: Kidney failureMethod[facility] Medical CenterGlucose Oioza3469-49-18 00:17:00* Test Item Value Reference Range Interpretation Comments Glucose Level (test code = EVH2599) 294 74-118 H [facility] CenterCalcium Cgmsl5622-51-77 00:17:00* Test Item Value Reference Range Interpretation Comments Calcium Level (test code = 62682-0) 8.8 8.4-10.2 [facility] Npwma9901-17-39 00:17:00* Test Item Value Reference Range Interpretation Comments Sodium Level (test code = 2951-2) 134 136-145 L [facility] CenterPotassium Clemq6061-56-27 00:17:00* Test Item Value Reference Range Interpretation Comments Potassium Level (test code = 2823-3) 3.4 3.5-5.1 L [facility] CenterChloride Zxorb0020-70-52 00:17:00* Test Item Value Reference Range Interpretation Comments Chloride Level (test code = 2075-0) 102 98-107 [facility] CenterCarbon Dioxide Cqjml8125-67-61 00:17:00* Test Item Value Reference Range Interpretation Comments Carbon Dioxide Level (test code = 2028-9) 23 22-29 [facility] CenterAnion Idz4502-51-87 00:17:00* Test Item Value Reference Range Interpretation Comments Anion Gap (test code = 08843-6) 12.4 8-16 [facility] CenterBlood Urea Ovamstge9528-60-23 00:17:00* Test Item Value Reference Range Interpretation Comments Blood Urea Nitrogen (test code = 3094-0) 5 7-26 L [facility] CenterCreatinine2017-06-20 00:17:00* Test Item Value Reference Range Interpretation Comments Creatinine (test code = 2160-0) 0.71 0.57-1.11 [facility] CenterBUN/Creatinine Nsgoq5084-20-38 00:17:00* Test Item Value Reference Range Interpretation Comments BUN/Creatinine Ratio (test code = 3097-3) 7 6-25 [facility] CenterEstimat Glomerular Filtration Rate 2017-04-01 00:17:00* Test Item Value Reference Range Interpretation Comments Estimat Glomerular Filtration Rate (test code = 08367-5) 60- >60 Ranges were taken from the National Kidney Disease Education Program and the [facility] Foundation literature.Reference ranges:60 or greater: Nhmndn92-06 ( for 3 consecutive months): Chronic kidney disease 15 or less: Kidney failureMethod[facility] Medical CenterGlucose Uzqyb6776-15-77 00:17:00* Test Item Value Reference Range Interpretation Comments Glucose Level (test code = DTA8788) 294 74-118 H [facility] CenterCalcium Kcfdq7765-85-89 00:17:00* Test Item Value Reference Range Interpretation Comments Calcium Level (test code = 23226-4) 8.8 8.4-10.2 [facility] Waqjc5988-63-54 00:17:00* Test Item Value Reference Range Interpretation Comments Sodium Level (test code = 2951-2) 134 136-145 L [facility] CenterPotassium Lqlcj6369-68-73 00:17:00* Test Item Value Reference Range Interpretation Comments Potassium Level (test code = 2823-3) 3.4 3.5-5.1 L [facility] CenterChloride Mujzl7595-64-72 00:17:00* Test Item Value Reference Range Interpretation Comments Chloride Level (test code = 2075-0) 102 98-107 [facility] CenterCarbon Dioxide Infgq6658-35-03 00:17:00* Test Item Value Reference Range Interpretation Comments Carbon Dioxide Level (test code = 2028-9) 23 22-29 [facility] CenterAnion Orn4998-91-41 00:17:00* Test Item Value Reference Range Interpretation Comments Anion Gap (test code = 94563-8) 12.4 8-16 [facility] CenterBlood Urea Orwopfkb6121-43-65 00:17:00* Test Item Value Reference Range Interpretation Comments Blood Urea Nitrogen (test code = 3094-0) 5 7-26 L [facility] CenterCreatinine2017-06-20 00:17:00* Test Item Value Reference Range Interpretation Comments Creatinine (test code = 2160-0) 0.71 0.57-1.11 [facility] CenterBUN/Creatinine Ruotn4488-31-55 00:17:00* Test Item Value Reference Range Interpretation Comments BUN/Creatinine Ratio (test code = 3097-3) 7 6-25 [facility] CenterEstimat Glomerular Filtration Rate 2017-04-01 00:17:00* Test Item Value Reference Range Interpretation Comments Estimat Glomerular Filtration Rate (test code = 79749-5) 60- >60 Ranges were taken from the National Kidney Disease Education Program and the [facility] Foundation literature.Reference ranges:60 or greater: Vdjjqy43-23 ( for 3 consecutive months): Chronic kidney disease 15 or less: Kidney failureMethod[facility] Medical CenterGlucose Smpoh5697-62-73 00:17:00* Test Item Value Reference Range Interpretation Comments Glucose Level (test code = UJZ8189) 294 74-118 H [facility] CenterCalcium Kweyq3358-63-70 00:17:00* Test Item Value Reference Range Interpretation Comments Calcium Level (test code = 90447-7) 8.8 8.4-10.2 [facility] CenterUrine MFX1540-19-27 19:10:00* Test Item Value Reference Range Interpretation Comments Urine WBC (test code = 5821-4) 6-10 0-5 H [facility] CenterUrine DVU3300-98-48 19:10:00* Test Item Value Reference Range Interpretation Comments Urine RBC (test code = 45294-8) NONE 0-5 [facility] CenterUrine Bdqtoepb9205-57-81 19:10:00* Test Item Value Reference Range Interpretation Comments Urine Bacteria (test code = 28981-0) FEW NONE [facility] CenterUrine Epithelial Ssphd6312-72-65 19:10:00 * Test Item Value Reference Range Interpretation Comments Urine Epithelial Cells (test code = 66748-7) MODERATE NONE [facility] CenterUrine Nxqgf6422-59-63 19:10:00* Test Item Value Reference Range Interpretation Comments Urine Yeast (test code = 91255-6) RARE NONE H [facility] CenterUrine WGL8532-97-24 19:10:00* Test Item Value Reference Range Interpretation Comments Urine WBC (test code = 5821-4) 6-10 0-5 H [facility] CenterUrine RCF9075-59-02 19:10:00* Test Item Value Reference Range Interpretation Comments Urine RBC (test code = 66321-0) NONE 0-5 [facility] CenterUrine Ocehmmvz9497-62-81 19:10:00* Test Item Value Reference Range Interpretation Comments Urine Bacteria (test code = 22314-8) FEW NONE [facility] CenterUrine Epithelial Tsmmi4101-09-37 19:10:00 * Test Item Value Reference Range Interpretation Comments Urine Epithelial Cells (test code = 92723-6) MODERATE NONE [facility] CenterUrine Rdbde0529-72-98 19:10:00* Test Item Value Reference Range Interpretation Comments Urine Yeast (test code = 75599-7) RARE NONE H [facility] CenterUrine NTV0860-10-05 19:10:00* Test Item Value Reference Range Interpretation Comments Urine WBC (test code = 5821-4) 6-10 0-5 H [facility] ASB4755-70-16 19:10:00* Test Item Value Reference Range Interpretation Comments Urine RBC (test code = 75794-5) NONE 0-5 [facility] Ruivorvp9629-18-64 19:10:00* Test Item Value Reference Range Interpretation Comments Urine Bacteria (test code = 10897-1) FEW NONE [facility] CenterUrine Epithelial Jpldn4346-76-95 19:10:00 * Test Item Value Reference Range Interpretation Comments Urine Epithelial Cells (test code = 19230-2) MODERATE NONE [facility] Wqnid9310-04-43 19:10:00* Test Item Value Reference Range Interpretation Comments Urine Yeast (test code = 62882-6) RARE NONE [facility] CenterU[facility] TPD2282-56-81 19:10:00* Test Item Value Reference Range Interpretation Comments Urine WBC (test code = 5821-4) 6-10 0-5 H [facility] CenterU[facility] BOZ9043-60-59 19:10:00* Test Item Value Reference Range Interpretation Comments Urine RBC (test code = 04455-0) NONE 0-5 [facility] CenterU[facility] Mtykhriu6937-60-35 19:10:00* Test Item Value Reference Range Interpretation Comments Urine Bacteria (test code = 99691-3) FEW NONE [facility] CenterUrine Epithelial Aaftm4544-15-44 19:10:00 * Test Item Value Reference Range Interpretation Comments Urine Epithelial Cells (test code = 61955-1) MODERATE NONE [facility] Zpuvt8214-16-23 19:10:00* Test Item Value Reference Range Interpretation Comments Urine Yeast (test code = 67263-1) RARE NONE [facility] CenterU[facility] Tmogb5159-75-33 19:07:00* Test Item Value Reference Range Interpretation Comments Urine Color (test code = 5778-6) YELLOW YELLOW [facility] CenterU[facility] Vzbbmqo9241-46-80 19:07:00* Test Item Value Reference Range Interpretation Comments Urine Clarity (test code = 38702-0) CLEAR CLEAR [facility] Specific Nwtsbki2436-45-88 19:07:00 * Test Item Value Reference Range Interpretation Comments Urine Specific [place] (test code = 5811-5) 1.005 1.010-1.02 5 L [facility] CenterUrine zC2458-91-97 19:07:00* Test Item Value Reference Range Interpretation Comments Urine pH (test code = 58288-1) 5 5-7 [facility] Leukocyte Mgufgxon5820-95-34 19:07:00* Test Item Value Reference Range Interpretation Comments Urine Leukocyte Esterase (test code = 5799-2) TRACE NEGATIVE H [facility] Rtsltji8734-46-17 19:07:00* Test Item Value Reference Range Interpretation Comments Urine Nitrite (test code = 30121-5) NEGATIVE NEGATIVE [facility] CenterU[facility] Vkrdlxr7978-80-14 19:07:00* Test Item Value Reference Range Interpretation Comments Urine Protein (test code = 5804-0) NEGATIVE NEGATIVE [facility] CenterUrine Glucose (UA)2017-03-31 19:07:00* Test Item Value Reference Range Interpretation Comments Urine Glucose (UA) (test code = 2349-9) 3+ NEGATIVE H [facility] CenterU[facility] Vvnagfe0107-56-66 19:07:00* Test Item Value Reference Range Interpretation Comments Urine Ketones (test code = 95665-3) NEGATIVE NEGATIVE [facility] CenterU[facility] Monltqettepw9843-42-23 19:07:00* Test Item Value Reference Range Interpretation Comments Urine Urobilinogen (test code = 79120-5) 0.2 0.2-1 [facility] CenterU[facility] Limdudmoa5592-07-00 19:07:00* Test Item Value Reference Range Interpretation Comments Urine Bilirubin (test code = 1978-6) NEGATIVE NEGATIVE [facility] CenterU[facility] Dllvj1167-79-14 19:07:00* Test Item Value Reference Range Interpretation Comments Urine Blood (test code = 73982-4) NEGATIVE NEGATIVE [facility] CenterU[facility] Uzfdk5340-31-44 19:07:00* Test Item Value Reference Range Interpretation Comments Urine Color (test code = 5778-6) YELLOW YELLOW [facility] CenterU[facility] Wdmuqdo9616-68-87 19:07:00* Test Item Value Reference Range Interpretation Comments Urine Clarity (test code = 30517-1) CLEAR CLEAR [facility] [facility] Zzndorv0213-82-45 19:07:00 * Test Item Value Reference Range Interpretation Comments Urine Specific [place] (test code = 5811-5) 1.005 1.010-1.02 5 L [facility] cO2240-94-83 19:07:00* Test Item Value Reference Range Interpretation Comments Urine pH (test code = 68041-8) 5 5-7 [facility] Leukocyte Smfxyqaa5455-96-25 19:07:00* Test Item Value Reference Range Interpretation Comments Urine Leukocyte Esterase (test code = 5799-2) TRACE NEGATIVE H [facility] Cqunqut1800-83-28 19:07:00* Test Item Value Reference Range Interpretation Comments Urine Nitrite (test code = 41288-0) NEGATIVE NEGATIVE [facility] Wusnnvp3786-11-97 19:07:00* Test Item Value Reference Range Interpretation Comments Urine Protein (test code = 5804-0) NEGATIVE NEGATIVE [facility] Glucose (UA)2017-03-31 19:07:00* Test Item Value Reference Range Interpretation Comments Urine Glucose (UA) (test code = 2349-9) 3+ NEGATIVE H [facility] Wqrywgv4542-88-39 19:07:00* Test Item Value Reference Range Interpretation Comments Urine Ketones (test code = 75184-4) NEGATIVE NEGATIVE [facility] Teotlxgjvtkw0493-08-49 19:07:00* Test Item Value Reference Range Interpretation Comments Urine Urobilinogen (test code = 65694-7) 0.2 0.2-1 [facility] Quaymakum1023-94-43 19:07:00* Test Item Value Reference Range Interpretation Comments Urine Bilirubin (test code = 1978-6) NEGATIVE NEGATIVE [facility] Cmxrt9969-14-30 19:07:00* Test Item Value Reference Range Interpretation Comments Urine Blood (test code = 93032-0) NEGATIVE NEGATIVE [facility] Cwzry0009-61-15 19:07:00* Test Item Value Reference Range Interpretation Comments Urine Color (test code = 5778-6) YELLOW YELLOW [facility] Drswppr7513-27-78 19:07:00* Test Item Value Reference Range Interpretation Comments Urine Clarity (test code = 56409-6) CLEAR CLEAR [facility] Garpwfr3083-69-58 19:07:00 * Test Item Value Reference Range Interpretation Comments Urine Specific [place] (test code = 5811-5) 1.005 1.010-1.02 5 L [facility] uJ4113-28-83 19:07:00* Test Item Value Reference Range Interpretation Comments Urine pH (test code = 81812-7) 5 5-7 [facility] Leukocyte Iivkikiz4310-88-03 19:07:00* Test Item Value Reference Range Interpretation Comments Urine Leukocyte Esterase (test code = 5799-2) TRACE NEGATIVE H [facility] Obpzkld2486-98-45 19:07:00* Test Item Value Reference Range Interpretation Comments Urine Nitrite (test code = 57754-7) NEGATIVE NEGATIVE [facility] Wyxpalb0862-64-77 19:07:00* Test Item Value Reference Range Interpretation Comments Urine Protein (test code = 5804-0) NEGATIVE NEGATIVE [facility] Glucose (UA)2017-03-31 19:07:00* Test Item Value Reference Range Interpretation Comments Urine Glucose (UA) (test code = 2349-9) 3+ NEGATIVE H [facility] Doitqzb7675-89-79 19:07:00* Test Item Value Reference Range Interpretation Comments Urine Ketones (test code = 16919-7) NEGATIVE NEGATIVE [facility] Ubqhhyksakfq7117-87-25 19:07:00* Test Item Value Reference Range Interpretation Comments Urine Urobilinogen (test code = 03998-9) 0.2 0.2-1 [facility] Qcgiardlp0149-83-16 19:07:00* Test Item Value Reference Range Interpretation Comments Urine Bilirubin (test code = 1978-6) NEGATIVE NEGATIVE [facility] Aciqe0152-19-52 19:07:00* Test Item Value Reference Range Interpretation Comments Urine Blood (test code = 60110-2) NEGATIVE NEGATIVE [facility] Cyzcl8227-87-70 19:07:00* Test Item Value Reference Range Interpretation Comments Urine Color (test code = 5778-6) YELLOW YELLOW [facility] Pjhgmng3376-51-95 19:07:00* Test Item Value Reference Range Interpretation Comments Urine Clarity (test code = 20421-7) CLEAR CLEAR [facility] Specific Cluiawm9905-94-56 19:07:00 * Test Item Value Reference Range Interpretation Comments Urine Specific [place] (test code = 5811-5) 1.005 1.010-1.02 5 L [facility] gB4952-57-28 19:07:00* Test Item Value Reference Range Interpretation Comments Urine pH (test code = 25521-4) 5 5-7 [facility] Center[facility] Leukocyte Awfucspf8991-07-14 19:07:00* Test Item Value Reference Range Interpretation Comments Urine Leukocyte Esterase (test code = 5799-2) TRACE NEGATIVE H [facility] Tqkwrrx2434-57-18 19:07:00* Test Item Value Reference Range Interpretation Comments Urine Nitrite (test code = 58321-1) NEGATIVE NEGATIVE [facility] Egzfopz4162-54-82 19:07:00* Test Item Value Reference Range Interpretation Comments Urine Protein (test code = 5804-0) NEGATIVE NEGATIVE [facility] Center[facility] Glucose (UA)2017-03-31 19:07:00* Test Item Value Reference Range Interpretation Comments Urine Glucose (UA) (test code = 2349-9) 3+ NEGATIVE H [facility] Lljjjau7506-21-14 19:07:00* Test Item Value Reference Range Interpretation Comments Urine Ketones (test code = 79523-5) NEGATIVE NEGATIVE [facility] Cnuoekqiyuwq3717-27-94 19:07:00* Test Item Value Reference Range Interpretation Comments Urine Urobilinogen (test code = 85449-5) 0.2 0.2-1 [facility] Lbnqrxcgo6440-96-42 19:07:00* Test Item Value Reference Range Interpretation Comments Urine Bilirubin (test code = 1978-6) NEGATIVE NEGATIVE [facility] Tqqdt0243-94-15 19:07:00* Test Item Value Reference Range Interpretation Comments Urine Blood (test code = 33587-7) NEGATIVE NEGATIVE [facility] CenterTotal Dcanvrjns0360-48-83 18:33:00* Test Item Value Reference Range Interpretation Comments Total Bilirubin (test code = 1975-2) 0.2 0.2-1.2 [facility] CenterAspartate Amino Transf (AST/SGOT) 2017-03-31 18:33:00* Test Item Value Reference Range Interpretation Comments Aspartate Amino Transf (AST/SGOT) (test code = Aspartate Amino Transf (AST/SGOT)) 11 5-34 [facility] CenterAlanine Aminotransferase (ALT/SGPT) 2017-03-31 18:33:00* Test Item Value Reference Range Interpretation Comments Alanine Aminotransferase (ALT/SGPT) (test code = 1742-6) 14 0-55 [facility] CenterTotal Rvmyywl5418-80-37 18:33:00* Test Item Value Reference Range Interpretation Comments Total Protein (test code = 2885-2) 7.7 6.5-8.1 [facility] CenterAlbumin2017-06-19 18:33:00* Test Item Value Reference Range Interpretation Comments Albumin (test code = 1751-7) 3.9 3.5-5.0 [facility] CenterGlobulin2017-06-19 18:33:00* Test Item Value Reference Range Interpretation Comments Globulin (test code = 40593-1) 3.8 2.3-3.5 H [facility] CenterAlbumin/Globulin Qzjfj2083-05-30 18:33:00 * Test Item Value Reference Range Interpretation Comments Albumin/Globulin Ratio (test code = 1759-0) 1.0 0.8-2.0 [facility] CenterAlkaline Bijvkuuyaye8813-78-61 18:33:00* Test Item Value Reference Range Interpretation Comments Alkaline Phosphatase (test code = 6768-6) 156 40-150 H [facility] CenterTotal Scqtsrtfv9731-31-89 18:33:00* Test Item Value Reference Range Interpretation Comments Total Bilirubin (test code = 1975-2) 0.2 0.2-1.2 [facility] [place] [facility] CenterAspartate Amino Transf (AST/SGOT) 2017-03-31 18:33:00* Test Item Value Reference Range Interpretation Comments Aspartate Amino Transf (AST/SGOT) (test code = Aspartate Amino Transf (AST/SGOT)) 11 5-34 [facility] [place] [facility] CenterAlanine Aminotransferase (ALT/SGPT) 2017-03-31 18:33:00* Test Item Value Reference Range Interpretation Comments Alanine Aminotransferase (ALT/SGPT) (test code = 1742-6) 14 0-55 [facility] CenterTotal Idkqmcf4454-49-39 18:33:00* Test Item Value Reference Range Interpretation Comments Total Protein (test code = 2885-2) 7.7 6.5-8.1 [facility] [place] [facility] CenterAlbumin2017-06-19 18:33:00* Test Item Value Reference Range Interpretation Comments Albumin (test code = 1751-7) 3.9 3.5-5.0 [facility] [place] [facility] CenterGlobulin2017-06-19 18:33:00* Test Item Value Reference Range Interpretation Comments Globulin (test code = 24283-1) 3.8 2.3-3.5 H [facility] CenterAlbumin/Globulin Lhdfq4551-31-53 18:33:00 * Test Item Value Reference Range Interpretation Comments Albumin/Globulin Ratio (test code = 1759-0) 1.0 0.8-2.0 [facility] CenterAlkaline Bubjqosnqjf4663-32-38 18:33:00* Test Item Value Reference Range Interpretation Comments Alkaline Phosphatase (test code = 6768-6) 156 40-150 H [facility] Ltcbwdmee9518-37-51 18:33:00* Test Item Value Reference Range Interpretation Comments Total Bilirubin (test code = 1975-2) 0.2 0.2-1.2 [facility] [place] [facility] CenterAspartate Amino Transf (AST/SGOT) 2017-03-31 18:33:00* Test Item Value Reference Range Interpretation Comments Aspartate Amino Transf (AST/SGOT) (test code = Aspartate Amino Transf (AST/SGOT)) 11 5-34 [facility] [place] [facility] CenterAlanine Aminotransferase (ALT/SGPT) 2017-03-31 18:33:00* Test Item Value Reference Range Interpretation Comments Alanine Aminotransferase (ALT/SGPT) (test code = 1742-6) 14 0-55 [facility] Cifzvnj9720-48-19 18:33:00* Test Item Value Reference Range Interpretation Comments Total Protein (test code = 2885-2) 7.7 6.5-8.1 [facility] CenterAlbumin2017-06-19 18:33:00* Test Item Value Reference Range Interpretation Comments Albumin (test code = 1751-7) 3.9 3.5-5.0 [facility] [place] [facility] CenterGlobulin2017-06-19 18:33:00* Test Item Value Reference Range Interpretation Comments Globulin (test code = 88236-9) 3.8 2.3-3.5 H [facility] CenterAlbumin/Globulin Xjszg0389-68-30 18:33:00 * Test Item Value Reference Range Interpretation Comments Albumin/Globulin Ratio (test code = 1759-0) 1.0 0.8-2.0 [facility] CenterAlkaline Lhcxgrqozom6597-76-62 18:33:00* Test Item Value Reference Range Interpretation Comments Alkaline Phosphatase (test code = 6768-6) 156 40-150 H [facility] Ocutfwxuo8904-83-03 18:33:00* Test Item Value Reference Range Interpretation Comments Total Bilirubin (test code = 1975-2) 0.2 0.2-1.2 [facility] [place] [facility] CenterAspartate Amino Transf (AST/SGOT) 2017-03-31 18:33:00* Test Item Value Reference Range Interpretation Comments Aspartate Amino Transf (AST/SGOT) (test code = Aspartate Amino Transf (AST/SGOT)) 11 5-34 [facility] [place] [facility] CenterAlanine Aminotransferase (ALT/SGPT) 2017-03-31 18:33:00* Test Item Value Reference Range Interpretation Comments Alanine Aminotransferase (ALT/SGPT) (test code = 1742-6) 14 0-55 [facility] Iogydgh9056-42-78 18:33:00* Test Item Value Reference Range Interpretation Comments Total Protein (test code = 2885-2) 7.7 6.5-8.1 [facility] [place] [facility] CenterAlbumin2017-06-19 18:33:00* Test Item Value Reference Range Interpretation Comments Albumin (test code = 1751-7) 3.9 3.5-5.0 [facility] [place] [facility] CenterGlobulin2017-06-19 18:33:00* Test Item Value Reference Range Interpretation Comments Globulin (test code = 90795-3) 3.8 2.3-3.5 H [facility] CenterAlbumin/Globulin Rgtby9956-08-07 18:33:00 * Test Item Value Reference Range Interpretation Comments Albumin/Globulin Ratio (test code = 1759-0) 1.0 0.8-2.0 [facility] CenterAlkaline Dnqspmbwkzn9354-55-43 18:33:00* Test Item Value Reference Range Interpretation Comments Alkaline Phosphatase (test code = 6768-6) 156 40-150 H [facility] CenterWhite Blood Djags8675-30-57 18:13:00* Test Item Value Reference Range Interpretation Comments White Blood Count (test code = 6690-2) 4.77 4.8-10.8 L [facility] CenterRed Blood Opqps5143-93-18 18:13:00* Test Item Value Reference Range Interpretation Comments Red Blood Count (test code = 789-8) 5.09 3.6-5.1 [facility] CenterHemoglobin2017-06-19 18:13:00* Test Item Value Reference Range Interpretation Comments Hemoglobin (test code = 27337-4) 15.0 12.0-16.0 [facility] CenterHematocrit2017-06-19 18:13:00* Test Item Value Reference Range Interpretation Comments Hematocrit (test code = 4544-3) 43.5 34.2-44.1 [facility] CenterMean Corpuscular Rzipwb0213-02-71 18:13:00* Test Item Value Reference Range Interpretation Comments Mean Corpuscular Volume (test code = 787-2) 85.5 81-99 [facility] CenterMean Corpuscular Nafbwvjarv8025-03-65 18:13:00* Test Item Value Reference Range Interpretation Comments Mean Corpuscular Hemoglobin (test code = 785-6) 29.5 28-32 [facility] CenterMean Corpuscular Hemoglobin Concent 2017-03-31 18:13:00* Test Item Value Reference Range Interpretation Comments Mean Corpuscular Hemoglobin Concent (test code = 786-4) 34.5 31-35 [facility] CenterRed Cell Distribution Itljw1308-82-92 18:13:00* Test Item Value Reference Range Interpretation Comments Red Cell Distribution Width (test code = 27229-0) 11.9 11.7 -14.4 [facility] CenterPlatelet Dgmtr1373-12-12 18:13:00* Test Item Value Reference Range Interpretation Comments Platelet Count (test code = 777-3) 221 140-360 [facility] CenterNeutrophils (%) (Auto)2017-03-31 18:13:00 * Test Item Value Reference Range Interpretation Comments Neutrophils (%) (Auto) (test code = 32376-5) 41.4 38.7-80.0 [facility] [place] [facility] CenterLymphocytes (%) (Auto)2017-03-31 18:13:00 * Test Item Value Reference Range Interpretation Comments Lymphocytes (%) (Auto) (test code = 736-9) 47.2 18.0-39.1 H [facility] [place] [facility] CenterMonocytes (%) (Auto)2017-03-31 18:13:00* Test Item Value Reference Range Interpretation Comments Monocytes (%) (Auto) (test code = 5905-5) 9.6 4.4-11.3 [facility] [place] [facility] CenterEosinophils (%) (Auto)2017-03-31 18:13:00 * Test Item Value Reference Range Interpretation Comments Eosinophils (%) (Auto) (test code = 713-8) 1.0 0.0-6.0 [facility] [place] [facility] CenterBasophils (%) (Auto)2017-03-31 18:13:00* Test Item Value Reference Range Interpretation Comments Basophils (%) (Auto) (test code = 706-2) 0.6 0.0-1.0 [facility] [place] [facility] CenterIM GRANULOCYTES %2017-03-31 18:13:00* Test Item Value Reference Range Interpretation Comments IM GRANULOCYTES % (test code = IM GRANULOCYTES %) 0.2 0.0- 1.0 [facility] CenterNeutrophils # (Auto)2017-03-31 18:13:00* Test Item Value Reference Range Interpretation Comments Neutrophils # (Auto) (test code = 751-8) 2.0 2.1-6.9 L [facility] [place] [facility] CenterLymphocytes # (Auto)2017-03-31 18:13:00* Test Item Value Reference Range Interpretation Comments Lymphocytes # (Auto) (test code = 87879-1) 2.3 1.0-3.2 [facility] [place] [facility] CenterMonocytes # (Auto)2017-03-31 18:13:00* Test Item Value Reference Range Interpretation Comments Monocytes # (Auto) (test code = 742-7) 0.5 0.2-0.8 [facility] [place] [facility] CenterEosinophils # (Auto)2017-03-31 18:13:00* Test Item Value Reference Range Interpretation Comments Eosinophils # (Auto) (test code = 711-2) 0.1 0.0-0.4 [facility] CenterBasophils # (Auto)2017-03-31 18:13:00* Test Item Value Reference Range Interpretation Comments Basophils # (Auto) (test code = 704-7) 0.0 0.0-0.1 [facility] CenterAbsolute Immature Granulocyte (auto 2017-03-31 18:13:00* Test Item Value Reference Range Interpretation Comments Absolute Immature Granulocyte (auto (chiquita t code = Absolute Immature Granulocyte (auto) 0.01 0-0.1 [facility] CenterWhite Blood Breys9726-06-98 18:13:00* Test Item Value Reference Range Interpretation Comments White Blood Count (test code = 6690-2) 4.77 4.8-10.8 L [facility] CenterRed Blood Eudxg9288-45-71 18:13:00* Test Item Value Reference Range Interpretation Comments Red Blood Count (test code = 789-8) 5.09 3.6-5.1 [facility] CenterHemoglobin2017-06-19 18:13:00* Test Item Value Reference Range Interpretation Comments Hemoglobin (test code = 64742-6) 15.0 12.0-16.0 [facility] CenterHematocrit2017-06-19 18:13:00* Test Item Value Reference Range Interpretation Comments Hematocrit (test code = 4544-3) 43.5 34.2-44.1 [facility] CenterMean Corpuscular Funxcv9988-26-44 18:13:00* Test Item Value Reference Range Interpretation Comments Mean Corpuscular Volume (test code = 787-2) 85.5 81-99 [facility] CenterMean Corpuscular Xxqsdyiepc3019-51-40 18:13:00* Test Item Value Reference Range Interpretation Comments Mean Corpuscular Hemoglobin (test code = 785-6) 29.5 28-32 [facility] CenterMean Corpuscular Hemoglobin Concent 2017-03-31 18:13:00* Test Item Value Reference Range Interpretation Comments Mean Corpuscular Hemoglobin Concent (test code = 786-4) 34.5 31-35 [facility] CenterRed Cell Distribution Ipizo5528-16-65 18:13:00* Test Item Value Reference Range Interpretation Comments Red Cell Distribution Width (test code = 69070-9) 11.9 11.7 -14.4 [facility] CenterPlatelet Invss4380-96-99 18:13:00* Test Item Value Reference Range Interpretation Comments Platelet Count (test code = 777-3) 221 140-360 [facility] CenterNeutrophils (%) (Auto)2017-03-31 18:13:00 * Test Item Value Reference Range Interpretation Comments Neutrophils (%) (Auto) (test code = 32590-7) 41.4 38.7-80.0 [facility] [place] [facility] CenterLymphocytes (%) (Auto)2017-03-31 18:13:00 * Test Item Value Reference Range Interpretation Comments Lymphocytes (%) (Auto) (test code = 736-9) 47.2 18.0-39.1 H [facility] [place] [facility] CenterMonocytes (%) (Auto)2017-03-31 18:13:00* Test Item Value Reference Range Interpretation Comments Monocytes (%) (Auto) (test code = 5905-5) 9.6 4.4-11.3 [facility] [place] [facility] CenterEosinophils (%) (Auto)2017-03-31 18:13:00 * Test Item Value Reference Range Interpretation Comments Eosinophils (%) (Auto) (test code = 713-8) 1.0 0.0-6.0 [facility] CenterBasophils (%) (Auto)2017-03-31 18:13:00* Test Item Value Reference Range Interpretation Comments Basophils (%) (Auto) (test code = 706-2) 0.6 0.0-1.0 [facility] [place] [facility] CenterIM GRANULOCYTES %2017-03-31 18:13:00* Test Item Value Reference Range Interpretation Comments IM GRANULOCYTES % (test code = IM GRANULOCYTES %) 0.2 0.0- 1.0 [facility] CenterNeutrophils # (Auto)2017-03-31 18:13:00* Test Item Value Reference Range Interpretation Comments Neutrophils # (Auto) (test code = 751-8) 2.0 2.1-6.9 L [facility] CenterLymphocytes # (Auto)2017-03-31 18:13:00* Test Item Value Reference Range Interpretation Comments Lymphocytes # (Auto) (test code = 52172-0) 2.3 1.0-3.2 [facility] [place] [facility] CenterMonocytes # (Auto)2017-03-31 18:13:00* Test Item Value Reference Range Interpretation Comments Monocytes # (Auto) (test code = 742-7) 0.5 0.2-0.8 [facility] [place] [facility] CenterEosinophils # (Auto)2017-03-31 18:13:00* Test Item Value Reference Range Interpretation Comments Eosinophils # (Auto) (test code = 711-2) 0.1 0.0-0.4 [facility] CenterBasophils # (Auto)2017-03-31 18:13:00* Test Item Value Reference Range Interpretation Comments Basophils # (Auto) (test code = 704-7) 0.0 0.0-0.1 [facility] [place] [facility] CenterAbsolute Immature Granulocyte (auto 2017-03-31 18:13:00* Test Item Value Reference Range Interpretation Comments Absolute Immature Granulocyte (auto (chiquita t code = Absolute Immature Granulocyte (auto) 0.01 0-0.1 [facility] CenterWhite Blood Poltp5422-57-10 18:13:00* Test Item Value Reference Range Interpretation Comments White Blood Count (test code = 6690-2) 4.77 4.8-10.8 L [facility] CenterRed Blood Snldz1748-26-62 18:13:00* Test Item Value Reference Range Interpretation Comments Red Blood Count (test code = 789-8) 5.09 3.6-5.1 [facility] [place] [facility] CenterHemoglobin2017-06-19 18:13:00* Test Item Value Reference Range Interpretation Comments Hemoglobin (test code = 21578-7) 15.0 12.0-16.0 [facility] CenterHematocrit2017-06-19 18:13:00* Test Item Value Reference Range Interpretation Comments Hematocrit (test code = 4544-3) 43.5 34.2-44.1 [facility] CenterMean Corpuscular Yglkfq0680-96-21 18:13:00* Test Item Value Reference Range Interpretation Comments Mean Corpuscular Volume (test code = 787-2) 85.5 81-99 [facility] CenterMean Corpuscular Lqbtitvmma5271-93-93 18:13:00* Test Item Value Reference Range Interpretation Comments Mean Corpuscular Hemoglobin (test code = 785-6) 29.5 28-32 [facility] CenterMean Corpuscular Hemoglobin Concent 2017-03-31 18:13:00* Test Item Value Reference Range Interpretation Comments Mean Corpuscular Hemoglobin Concent (test code = 786-4) 34.5 31-35 [facility] CenterRed Cell Distribution Lwkje3701-37-62 18:13:00* Test Item Value Reference Range Interpretation Comments Red Cell Distribution Width (test code = 50472-0) 11.9 11.7 -14.4 [facility] CenterPlatelet Luidu3694-67-13 18:13:00* Test Item Value Reference Range Interpretation Comments Platelet Count (test code = 777-3) 221 140-360 [facility] CenterNeutrophils (%) (Auto)2017-03-31 18:13:00 * Test Item Value Reference Range Interpretation Comments Neutrophils (%) (Auto) (test code = 86063-6) 41.4 38.7-80.0 [facility] [place] [facility] CenterLymphocytes (%) (Auto)2017-03-31 18:13:00 * Test Item Value Reference Range Interpretation Comments Lymphocytes (%) (Auto) (test code = 736-9) 47.2 18.0-39.1 H [facility] [place] [facility] CenterMonocytes (%) (Auto)2017-03-31 18:13:00* Test Item Value Reference Range Interpretation Comments Monocytes (%) (Auto) (test code = 5905-5) 9.6 4.4-11.3 [facility] [place] [facility] CenterEosinophils (%) (Auto)2017-03-31 18:13:00 * Test Item Value Reference Range Interpretation Comments Eosinophils (%) (Auto) (test code = 713-8) 1.0 0.0-6.0 [facility] [place] [facility] CenterBasophils (%) (Auto)2017-03-31 18:13:00* Test Item Value Reference Range Interpretation Comments Basophils (%) (Auto) (test code = 706-2) 0.6 0.0-1.0 [facility] [place] [facility] CenterIM GRANULOCYTES %2017-03-31 18:13:00* Test Item Value Reference Range Interpretation Comments IM GRANULOCYTES % (test code = IM GRANULOCYTES %) 0.2 0.0- 1.0 [facility] CenterNeutrophils # (Auto)2017-03-31 18:13:00* Test Item Value Reference Range Interpretation Comments Neutrophils # (Auto) (test code = 751-8) 2.0 2.1-6.9 L [facility] CenterLymphocytes # (Auto)2017-03-31 18:13:00* Test Item Value Reference Range Interpretation Comments Lymphocytes # (Auto) (test code = 71336-0) 2.3 1.0-3.2 [facility] [place] [facility] CenterMonocytes # (Auto)2017-03-31 18:13:00* Test Item Value Reference Range Interpretation Comments Monocytes # (Auto) (test code = 742-7) 0.5 0.2-0.8 [facility] CenterEosinophils # (Auto)2017-03-31 18:13:00* Test Item Value Reference Range Interpretation Comments Eosinophils # (Auto) (test code = 711-2) 0.1 0.0-0.4 [facility] CenterBasophils # (Auto)2017-03-31 18:13:00* Test Item Value Reference Range Interpretation Comments Basophils # (Auto) (test code = 704-7) 0.0 0.0-0.1 [facility] CenterAbsolute Immature Granulocyte (auto 2017-03-31 18:13:00* Test Item Value Reference Range Interpretation Comments Absolute Immature Granulocyte (auto (chiquita t code = Absolute Immature Granulocyte (auto) 0.01 0-0.1 [facility] CenterWhite Blood Ccryo6581-92-37 18:13:00* Test Item Value Reference Range Interpretation Comments White Blood Count (test code = 6690-2) 4.77 4.8-10.8 L [facility] CenterRed Blood Umhdf7477-06-83 18:13:00* Test Item Value Reference Range Interpretation Comments Red Blood Count (test code = 789-8) 5.09 3.6-5.1 [facility] [facility]* Test Item Value Reference Range Interpretation Comments Hemoglobin (test code = 73006-9) 15.0 12.0-16.0 [facility]Hematocrit2017-[facility]-19 18:13:00* Test Item Value Reference Range Interpretation Comments Hematocrit (test code = 4544-3) 43.5 34.2-44.1 [facility] CenterMean Corpuscular [id number] 18:13:00* Test Item Value Reference Range Interpretation Comments Mean Corpuscular Volume (test code = 787-2) 85.5 81-99 [facility]Mean Corpuscular [id number] 18:13:00* Test Item Value Reference Range Interpretation Comments Mean Corpuscular Hemoglobin (test code = 785-6) 29.5 28-32 [facility]Mean Corpuscular Hemoglobin Concent 2017-03-31 18:13:00* Test Item Value Reference Range Interpretation Comments Mean Corpuscular Hemoglobin Concent (test code = 786-4) 34.5 31-35 [facility] CenterRed Cell Distribution [id number] 18:13:00* Test Item Value Reference Range Interpretation Comments Red Cell Distribution Width (test code = 47896-8) 11.9 11.7 -14.4 [facility] CenterPlatelet Bsjwn1528-42-01 18:13:00* Test Item Value Reference Range Interpretation Comments Platelet Count (test code = 777-3) 221 140-360 [facility] CenterNeutrophils (%) (Auto)2017-03-31 18:13:00 * Test Item Value Reference Range Interpretation Comments Neutrophils (%) (Auto) (test code = 94684-9) 41.4 38.7-80.0 [facility] CenterLymphocytes (%) (Auto)2017-03-31 18:13:00 * Test Item Value Reference Range Interpretation Comments Lymphocytes (%) (Auto) (test code = 736-9) 47.2 18.0-39.1 H [facility] CenterMonocytes (%) (Auto)2017-03-31 18:13:00* Test Item Value Reference Range Interpretation Comments Monocytes (%) (Auto) (test code = 5905-5) 9.6 4.4-11.3 [facility] CenterEosinophils (%) (Auto)2017-03-31 18:13:00 * Test Item Value Reference Range Interpretation Comments Eosinophils (%) (Auto) (test code = 713-8) 1.0 0.0-6.0 [facility] CenterBasophils (%) (Auto)2017-03-31 18:13:00* Test Item Value Reference Range Interpretation Comments Basophils (%) (Auto) (test code = 706-2) 0.6 0.0-1.0 [facility] CenterIM GRANULOCYTES %2017-03-31 18:13:00* Test Item Value Reference Range Interpretation Comments IM GRANULOCYTES % (test code = IM GRANULOCYTES %) 0.2 0.0- 1.0 [facility] CenterNeutrophils # (Auto)2017-03-31 18:13:00* Test Item Value Reference Range Interpretation Comments Neutrophils # (Auto) (test code = 751-8) 2.0 2.1-6.9 L [facility] CenterLymphocytes # (Auto)2017-03-31 18:13:00* Test Item Value Reference Range Interpretation Comments Lymphocytes # (Auto) (test code = 18922-0) 2.3 1.0-3.2 [facility] CenterMonocytes # (Auto)2017-03-31 18:13:00* Test Item Value Reference Range Interpretation Comments Monocytes # (Auto) (test code = 742-7) 0.5 0.2-0.8 [facility] CenterEosinophils # (Auto)2017-03-31 18:13:00* Test Item Value Reference Range Interpretation Comments Eosinophils # (Auto) (test code = 711-2) 0.1 0.0-0.4 [facility] CenterBasophils # (Auto)2017-03-31 18:13:00* Test Item Value Reference Range Interpretation Comments Basophils # (Auto) (test code = 704-7) 0.0 0.0-0.1 [facility] CenterAbsolute Immature Granulocyte (auto 2017-03-31 18:13:00* Test Item Value Reference Range Interpretation Comments Absolute Immature Granulocyte (auto (chiquita t code = Absolute Immature Granulocyte (auto) 0.01 0-0.1 [facility] CenterCT [facility] [place] [address] Patient Name: YOLETTE URIBE MR #: [id number] : 1975 Age/Sex: 42/F Req #: [id number] Adm Physician: JUAN DUBOSE MD Ordered by: BEVERLY MARTELL SHIPS OR BARGES LOADER Report #: [id number] Location: [facility] Room/Bed: [place] [address] Procedure: [id number] CT/CT ABDOMEN/PELVIS W Exam Date: 03/16/18 Exam [...] on 03/17/18 0023 COPY TO: BEVERLY MARTELL SHIPS OR [employer]ARG[employer] LOADER FOOT RIGHT COMPLETE [place] [address] Patient Name: YOLETTE URIBE MR #: [id number] : 1975 Age/Sex: 42/F Req #: [id number] Adm Physician: Ordered by: BEVERLY MARTELL SHIPS OR BARG[employer] LOADER Report #: [id number] Location: ER Room/Bed: Procedure: [id number] DX/FOOT RIGHT COMPLETE Exam Kamari e: 01/17/18 [...] JEMAL on 01/17/182058 COPY TO: BEVERLY MARTELL SHIPS OR BARGES LOADER ANKLE 3 + VIEWS RIGHT [place] [address] Patient Name: YOLETTE URIBE MR #: [id number] : 1975 Age/Sex: 42/F Req #: [id number] Adm Physician: Ordered by: BEVERLY MARTELL SHIPS OR [employer]ARG[employer] LOADER Report #: [id number] Location: ER Room/Bed: Procedure: [id number] DX/ANKLE 3 + VIEWS RIGHT Exam D [...] JEMAL on 01/17/182058 COPY TO: BEVERLY MARTELL SHIPS OR BARGES LOADER KNEE RIGHT THREE VIEWS [place] [address] Patient Name: YOLETTE URIBE MR #: [id number] : 1975 Age/Sex: 42/F Req #: [id number] Adm Physician: Ordered by: BEVERLY MARTELL NP Report #: [id number] Location: ER Room/Bed: Procedure: [id number] DX/KNEE RIGHT THREE VIEWS Exam Date: 01/17/18 [...] JEMAL on 01/17/182058 COPY TO: BEVERLY MARTELL SHIPS OR [employer]ARG[employer] LO[employer]ER FOOT RIGHT AP LAT [place] [address] Patient Name: YOLETTE URIBE MR #: [id number] : 1975 Age/Sex: 42/F Req #: [id number] Adm Physician: Ordered by: BEVERLY MARTELL SHIPS OR [employer]ARG[employer] LOADER Report #: [id number] Location: ER Room/Bed: Procedure: [id number] DX/FOOT RIGHT AP LAT Exam Kamari e: [...] JEMAL on 01/15/181940 COPY TO: BEVERLY MARTELL SHIPS OR BARGES LOADER ANKLE 3 + VIEWS RIGHT [place] [address] Patient Name: YOLETTE URIBE MR #: [id number] : 1975 Age/Sex: 42/F Req #: [id number] Adm Physician: Ordered by: BEVERLY MARTELL SHIPS OR BARGES LOADER Report #: [id number] Location: ER Room/Bed: Procedure: [id number] DX/ANKLE 3 + VIEWS RIGHT Exam D [...]
== END 2020-08-15 18:05 | disposition home or self-care (01) ==
LOC: ER 17:02
DX: J18.9 Pneumonia, unspecified organism (principal); R05 Cough; R50.9 Fever, unspecified; Z11.59 Encounter for screening for other viral diseases
CPT/HCPCS: 71045; 99283; U0002

== ENCOUNTER 2020-10-09 10:38 | Emergency (ER) | payer MEDICARE ==
[~2020-10-09] VITALS: Ht 152.4 cm; Wt 62.6 kg
[~2020-10-09 10:38] MED LIST changes: +TYLENOL # 31 EA PO
[2020-10-09] MEDS ORDERED: ONDANSETRON HCL INJ 2MG/ML 2ML 2 MG/ML VIAL IV STA (10:55)
[2020-10-09] MEDS ORDERED: KETOROLAC TROMETHAMINE 30 MG/ML VIAL IV STA (10:57)
[2020-10-09] MEDS ORDERED: SODIUM CHLORIDE 0.9% 1000ML 1,000 ML IV SCH (11:00)
[2020-10-09] MEDS ORDERED: KETOROLAC TROMETHAMINE 30 MG/ML VIAL ONE (11:04)
[2020-10-09 11:16] LABS: BASOPHILS % 0.3 % (0.0-1.0); EOSINOPHILS % 0.2 % (0.0-6.0); HEMATOCRIT 37.6 % (34.2-44.1); HEMOGLOBIN 13.1 g/dL (12.0-16.0); LYMPHOCYTES # (AUTO) 1.3 (1.0-3.2); LYMPHOCYTES % 15.1 % (18.0-39.1); MEAN CORPUSCULAR HEMOGLOBIN 28.5 pg (28-32); MEAN CORPUSCULAR HGB CONC 34.8 g/dL (31-35); MEAN CORPUSCULAR VOLUME 81.9 fL (81-99); MONOCYTES # (AUTO) 0.5 (0.2-0.8); MONOCYTES % 5.6 % (4.4-11.3); NEUTROPHILS # (AUTO) 6.8 (2.1-6.9); NEUTROPHILS % 78.6 % (38.7-80.0); PLATELET COUNT 227 x10e3/uL (140-360); RED BLOOD COUNT 4.59 x10e6/uL (3.6-5.1); RED CELL DISTRIBUTION WIDTH 11.8 % (11.7-14.4)
[2020-10-09 11:33] LABS: ALANINE AMINOTRANSFERASE 13 IU/L (0-55); ALBUMIN 3.8 g/dL (3.5-5.0); ALBUMIN/GLOBULIN RATIO 1.2 (0.8-2.0); ALKALINE PHOSPHATASE 121 IU/L (40-150); ANION GAP 18.1 mmol/L (8-16); BLOOD UREA NITROGEN 10 mg/dL (7-26); BUN/CREATININE RATIO 11 (6-25); CALCIUM 9.4 mg/dL (8.4-10.2); CARBON DIOXIDE 23 mmol/L (22-29); CHLORIDE 95 mmol/L (98-107); CREATININE, SERUM 0.89 mg/dL (0.57-1.11); EST GLOMERULAR FILTRATION RATE > 60 ML/MIN (60-); LIPASE 28 U/L (8-78); POTASSIUM 4.1 mmol/L (3.5-5.1); SODIUM 132 mmol/L (136-145)
[2020-10-09 11:37] LABS: GLUCOSE 671 mg/dL (74-118)
[2020-10-09] MEDS ORDERED: INSULIN REGULAR, HUMAN 100 UNIT/1 ML 3ML VIAL IV STA (11:37)
[2020-10-09] MEDS ORDERED: LACTATED RINGER'S 1,000 ML INJ ONE (11:45)
[2020-10-09 12:25] LABS: ABG PCO2 32 mmHg (35-45); ABG PH 7.48 (7.35-7.45)
[2020-10-09 12:26] LABS: ABG HCO3 24 mmol/L (22-26); ABG PO2 126 mmHg (80-105); ABG TCO2 25
[2020-10-09 13:46] LABS: CLARITY,URINE CLEAR (CLEAR); COLOR,URINE YELLOW (YELLOW); KETONES,URINE 2+ (NEGATIVE); LEUKOCYTE ESTERASE ,URINE NEGATIVE (NEGATIVE); NITRITE,URINE NEGATIVE (NEGATIVE); PROTEIN,URINE DIPSTICK NEGATIVE (NEGATIVE); URINE UROBILINOGEN 0.2 mg/dL (0.2 - 1)
[2020-10-09 13:56] LABS: WBC,URINE (MAN) 21-50 /HPF (0-5)
[2020-10-09 13:57] LABS: RBC,URINE 0-5 /HPF (0-5)
[2020-10-09 13:58] LABS: BACTERIA,URINE RARE /HPF; EPITHELIAL CELLS,URINE RARE /LPF; YEAST,URINE RARE
[2020-10-09] MEDS ORDERED: KEFLEX500 MG PO (14:06)
[2020-10-09] MEDS ORDERED: ZOFRAN4 MG PO (14:08)
== END 2020-10-09 14:35 | disposition home or self-care (01) ==
LOC: ER 10:57
DX: E11.65 Type 2 diabetes mellitus with hyperglycemia (principal); F41.9 Anxiety disorder, unspecified; F32.9 Major depressive disorder, single episode, unspecified; Z88.2 Allergy status to sulfonamides; Z88.8 Allergy status to other drugs, medicaments and biological substances; Z79.4 Long term (current) use of insulin
CPT/HCPCS: 36415; 36600; 71045; 80053; 81001; 82805; 82948; 83690; 84484; 84702; 85025; 99284; J1817; J1885; J2405; J7030; J7121

== ENCOUNTER 2020-11-18 08:52 | Emergency (ER) | payer SELFPAY ==
[~2020-11-18] VITALS: Ht 152.4 cm; Wt 62.6 kg
[~2020-11-18 08:52] MED LIST changes: +ZOFRAN4 MG PO
[2020-11-18] MEDS ORDERED: SODIUM CHLORIDE 0.9% 1000ML 1,000 ML IV STA (09:01)
[2020-11-18 09:37] LABS: BASOPHILS % 0.5 % (0.0-1.0); EOSINOPHILS # (AUTO) 0.2 (0.0-0.4); EOSINOPHILS % 2.4 % (0.0-6.0); HEMATOCRIT 38.6 % (34.2-44.1); HEMOGLOBIN 13.2 g/dL (12.0-16.0); LYMPHOCYTES # (AUTO) 1.3 (1.0-3.2); LYMPHOCYTES % 19.3 % (18.0-39.1); MEAN CORPUSCULAR HEMOGLOBIN 27.7 pg (28-32); MEAN CORPUSCULAR HGB CONC 34.2 g/dL (31-35); MEAN CORPUSCULAR VOLUME 81.1 fL (81-99); MONOCYTES # (AUTO) 0.5 (0.2-0.8); MONOCYTES % 8.2 % (4.4-11.3); NEUTROPHILS # (AUTO) 4.6 (2.1-6.9); NEUTROPHILS % 69.3 % (38.7-80.0); PLATELET COUNT 211 x10e3/uL (140-360); RED BLOOD COUNT 4.76 x10e6/uL (3.6-5.1); RED CELL DISTRIBUTION WIDTH 11.7 % (11.7-14.4)
[2020-11-18 09:57] LABS: ALANINE AMINOTRANSFERASE 17 IU/L (0-55); ALBUMIN 3.8 g/dL (3.5-5.0); ALBUMIN/GLOBULIN RATIO 1.1 (0.8-2.0); ALKALINE PHOSPHATASE 96 IU/L (40-150); ANION GAP 20.1 mmol/L (8-16); BLOOD UREA NITROGEN 8 mg/dL (7-26); BUN/CREATININE RATIO 10 (6-25); CALCIUM 8.6 mg/dL (8.4-10.2); CARBON DIOXIDE 23 mmol/L (22-29); CHLORIDE 93 mmol/L (98-107); CREATINE KINASE 32 IU/L (29-168); CREATININE, SERUM 0.81 mg/dL (0.57-1.11); EST GLOMERULAR FILTRATION RATE > 60 ML/MIN (60-); MAGNESIUM 1.4 MG/DL (1.3-2.1); POTASSIUM 4.1 mmol/L (3.5-5.1); SODIUM 132 mmol/L (136-145)
[2020-11-18 09:59] LABS: GLUCOSE 483 mg/dL (74-118)
[2020-11-18 10:07] LABS: INR 0.88; PROTHROMBIN TIME 12.4 seconds (11.9-14.5)
[2020-11-18 10:08] LABS: PARTIAL THROMBOPLASTIN TIME 26.9 seconds (23.8-35.5)
[2020-11-18] MEDS ORDERED: INSULIN REGULAR, HUMAN 100 UNIT/1 ML 3ML VIAL IV NR (10:15)
[2020-11-18] MEDS ORDERED: ONDANSETRON HCL INJ 2MG/ML 2ML 2 MG/ML VIAL IV NR (10:32)
[2020-11-18] MEDS ORDERED: MORPHINE SULFATE INJ 2 MG/ML SYR IV NR (10:32)
[2020-11-18] MEDS ORDERED: ASPIRIN 81 MG CHEW TAB PO ONE (12:45)
[2020-11-18 13:30] LABS: CREATINE KINASE MB 0.4 ng/mL (0-5.0)
== END 2020-11-18 14:13 | disposition home or self-care (01) ==
LOC: ER 09:05
DX: U07.1 COVID-19 (principal); R05 Cough; R06.02 Shortness of breath; R50.9 Fever, unspecified; E11.65 Type 2 diabetes mellitus with hyperglycemia; F41.9 Anxiety disorder, unspecified; F32.9 Major depressive disorder, single episode, unspecified
CPT/HCPCS: 36415; 71045; 80053; 82550; 82553; 82948; 83735; 83880; 84443; 84484; 84702; 85025; 85379; 85610; 85730; 93005; 99284; J2270; J2405; J7030; U0002

== ENCOUNTER 2020-11-20 20:25 | Emergency (ER) | payer SELFPAY ==
[~2020-11-20] VITALS: Ht 152.4 cm; Wt 62.6 kg
== END 2020-11-20 20:55 | disposition home or self-care (01) ==
LOC: ER 20:49
DX: U07.1 COVID-19 (principal); R11.2 Nausea with vomiting, unspecified; M54.9 Dorsalgia, unspecified; M79.10 Myalgia, unspecified site; E11.9 Type 2 diabetes mellitus without complications; F41.9 Anxiety disorder, unspecified; F32.9 Major depressive disorder, single episode, unspecified
CPT/HCPCS: 99283

== ENCOUNTER 2020-11-22 10:25 | Inpatient (IN) | payer SELFPAY ==
[~2020-11-22] VITALS: Ht 152.4 cm; Wt 52.2 kg
[2020-11-22 11:00] LABS: BASOPHILS % 0.1 % (0.0-1.0); HEMATOCRIT 46.4 % (34.2-44.1); HEMOGLOBIN 15.6 g/dL (12.0-16.0); LYMPHOCYTES # (AUTO) 0.8 (1.0-3.2); LYMPHOCYTES % 7.9 % (18.0-39.1); MEAN CORPUSCULAR HEMOGLOBIN 27.8 pg (28-32); MEAN CORPUSCULAR HGB CONC 33.6 g/dL (31-35); MEAN CORPUSCULAR VOLUME 82.6 fL (81-99); MONOCYTES # (AUTO) 0.3 (0.2-0.8); NEUTROPHILS # (AUTO) 9.1 (2.1-6.9); NEUTROPHILS % 88.6 % (38.7-80.0); PLATELET COUNT 223 x10e3/uL (140-360); RED BLOOD COUNT 5.62 x10e6/uL (3.6-5.1); RED CELL DISTRIBUTION WIDTH 12.1 % (11.7-14.4)
[2020-11-22] MEDS ORDERED: HALOPERIDOL LACTATE 5 MG/ML VIAL IV ONE (11:00)
[2020-11-22] MEDS ORDERED: LACTATED RINGER'S 1,000 ML INJ ONE ×2 (11:00→12:45)
[2020-11-22 11:21] LABS: ALBUMIN 3.4 g/dL (3.5-5.0); ALBUMIN/GLOBULIN RATIO 0.8 (0.8-2.0); CALCIUM 9.2 mg/dL (8.4-10.2); CREATININE, SERUM 1.15 mg/dL (0.57-1.11)
[2020-11-22 11:38] LABS: CLARITY,URINE CLEAR (CLEAR); COLOR,URINE YELLOW (YELLOW); LEUKOCYTE ESTERASE ,URINE NEGATIVE (NEGATIVE); NITRITE,URINE NEGATIVE (NEGATIVE); PROTEIN,URINE DIPSTICK 2+ (NEGATIVE)
[2020-11-22 11:39] LABS: AMPHETAMINES SCREEN,URINE NEGATIVE (NEGATIVE); BENZODIAZEPINES SCREEN,URINE NEGATIVE (NEGATIVE); KETONES,URINE >=160 (NEGATIVE); PHENCYCLIDINE SCREEN,URINE NEGATIVE (NEGATIVE)
[2020-11-22 11:40] LABS: URINE UROBILINOGEN 0.2 mg/dL (0.2 - 1)
[2020-11-22 11:52] LABS: BACTERIA,URINE FEW /HPF; EPITHELIAL CELLS,URINE FEW /LPF; RBC,URINE 0-5 /HPF (0-5)
[2020-11-22] MEDS ORDERED: SODIUM CHLORIDE 0.9% 50ML 50 ML ONE (12:08)
[2020-11-22] MEDS ORDERED: IOPAMIDOL 370 MG/ML 200 ML INFUS..BTL INJ ONE (12:08)
[2020-11-22] MEDS ORDERED: LACTATED RINGER'S 1,000 ML ONE (12:46)
[2020-11-22] MEDS: MAGNESIUM SULF 1GRAM/DEXTROSE 100 ML IV PRN ×2 (12:50→23:29)
[2020-11-22] MEDS: POTASSIUM CHLORIDE 20MEQ/100ML 200 ML IV PRN ×2 (13:25→23:28)
[2020-11-22] MEDS: INSULIN REGULAR, HUMAN 3ML VL 100 UNIT in SODIUM CHLORIDE 0.9% 99 ML IV SCH ×4 (14:12→23:21)
[2020-11-22] MEDS ORDERED: ACETAMINOPHEN/CODEINE 300MG - 30MG TAB PO PRN (14:30)
[2020-11-22] MEDS ORDERED: HYDRALAZINE HCL 20 MG/ML VIAL IV PRN (14:30)
[2020-11-22] MEDS: SODIUM CHLORIDE 0.9% 1000ML 1,000 ML IV SCH ×2 (14:40→19:00)
[2020-11-22] MEDS ORDERED: LORAZEPAM INJ 2 MG/ML VIAL IV PRN (14:45)
[2020-11-22] MEDS ORDERED: FAMOTIDINE 20 MG TAB PO SCH (16:30)
[2020-11-22] MEDS: CEFTRIAXONE SOD 1 GM in SODIUM CHLORIDE 0.9% 50ML 50 ML IV SCH (17:18)
[2020-11-22] MEDS: DEXTROSE 5%/0.45% SOD CHL 1,000 ML IV SCH ×2 (18:40→23:21)
[2020-11-22 19:15] LABS: ANION GAP 20.3 mmol/L (8-16); BLOOD UREA NITROGEN 8 mg/dL (7-26); BUN/CREATININE RATIO 10 (6-25); CHLORIDE 108 mmol/L (98-107); EST GLOMERULAR FILTRATION RATE > 60 ML/MIN (60-); GLUCOSE 203 mg/dL (74-118); MAGNESIUM 1.5 MG/DL (1.3-2.1); POTASSIUM 3.3 mmol/L (3.5-5.1); SODIUM 133 mmol/L (136-145)
[2020-11-22 19:19] LABS: CARBON DIOXIDE 8 mmol/L (22-29)
[2020-11-22] MEDS: ACETAMINOPHEN 325 MG TAB PO PRN (19:33)
[2020-11-22] MEDS: PANTOPRAZOLE 40 MG 10ML VIAL IV SCH (19:54)
[2020-11-22] MEDS ORDERED: ZOLPIDEM TARTRATE 5 MG TAB PO PRN (21:00)
[2020-11-22 23:08] LABS: ANION GAP 13.2 mmol/L (8-16); BLOOD UREA NITROGEN 7 mg/dL (7-26); BUN/CREATININE RATIO 9 (6-25); CALCIUM 7.9 mg/dL (8.4-10.2); CARBON DIOXIDE 12 mmol/L (22-29); CHLORIDE 109 mmol/L (98-107); CREATININE, SERUM 0.74 mg/dL (0.57-1.11); EST GLOMERULAR FILTRATION RATE > 60 ML/MIN (60-); GLUCOSE 157 mg/dL (74-118); MAGNESIUM 1.4 MG/DL (1.3-2.1); POTASSIUM 3.2 mmol/L (3.5-5.1); SODIUM 131 mmol/L (136-145)
[2020-11-22] MEDS ORDERED: POTASSIUM CHLORIDE 20MEQ/100ML 100 ML ONE (23:38)
[2020-11-22] MEDS ORDERED: MAGNESIUM SULF 1GRAM/DEXTROSE 100 ML IV ONE (23:39)
[2020-11-23] VITALS (10 sets, daily range): BP systolic 97–116; BP diastolic 66–80
[2020-11-23] MEDS ORDERED: MAGNESIUM SULF 1GRAM/DEXTROSE 100 ML IV PRN (00:30)
[2020-11-23 03:10] LABS: ANION GAP 12.6 mmol/L (8-16); BLOOD UREA NITROGEN 6 mg/dL (7-26); BUN/CREATININE RATIO 9 (6-25); CALCIUM 7.8 mg/dL (8.4-10.2); CARBON DIOXIDE 13 mmol/L (22-29); CHLORIDE 108 mmol/L (98-107); CREATININE, SERUM 0.68 mg/dL (0.57-1.11); EST GLOMERULAR FILTRATION RATE > 60 ML/MIN (60-); GLUCOSE 138 mg/dL (74-118); POTASSIUM 3.6 mmol/L (3.5-5.1); SODIUM 130 mmol/L (136-145)
[2020-11-23 03:17] LABS: MAGNESIUM 1.9 MG/DL (1.3-2.1)
[2020-11-23] MEDS: ONDANSETRON HCL INJ 2MG/ML 2ML 2 MG/ML VIAL IV PRN ×2 (03:37→12:56)
[2020-11-23] MEDS: KETOROLAC TROMETHAMINE 30 MG/ML VIAL IV PRN ×2 (03:40→13:16)
[2020-11-23] MEDS: DEXTROSE 5%/0.45% SOD CHL 1,000 ML IV SCH ×3 (05:10→23:50)
[2020-11-23] MEDS: INSULIN REGULAR, HUMAN 3ML VL 100 UNIT in SODIUM CHLORIDE 0.9% 99 ML IV SCH ×4 (05:10→17:11)
[2020-11-23 06:05] LABS: HEMATOCRIT 33.5 % (34.2-44.1); HEMOGLOBIN 11.8 g/dL (12.0-16.0); LYMPHOCYTES # (AUTO) 1.2 (1.0-3.2); MEAN CORPUSCULAR HEMOGLOBIN 27.6 pg (28-32); MEAN CORPUSCULAR HGB CONC 35.2 g/dL (31-35); MEAN CORPUSCULAR VOLUME 78.5 fL (81-99); MONOCYTES # (AUTO) 0.3 (0.2-0.8); MONOCYTES % 4.7 % (4.4-11.3); NEUTROPHILS # (AUTO) 4.9 (2.1-6.9); PLATELET COUNT 172 x10e3/uL (140-360); RED BLOOD COUNT 4.27 x10e6/uL (3.6-5.1); RED CELL DISTRIBUTION WIDTH 12.1 % (11.7-14.4)
[2020-11-23 06:26] LABS: ALANINE AMINOTRANSFERASE 10 IU/L (0-55); ALBUMIN 2.4 g/dL (3.5-5.0); ALBUMIN/GLOBULIN RATIO 0.9 (0.8-2.0); ALKALINE PHOSPHATASE 67 IU/L (40-150); ANION GAP 13.1 mmol/L (8-16); BLOOD UREA NITROGEN 6 mg/dL (7-26); BUN/CREATININE RATIO 9 (6-25); CALCIUM 7.7 mg/dL (8.4-10.2); CARBON DIOXIDE 13 mmol/L (22-29); CHLORIDE 108 mmol/L (98-107); CREATININE, SERUM 0.67 mg/dL (0.57-1.11); EST GLOMERULAR FILTRATION RATE > 60 ML/MIN (60-); GLUCOSE 152 mg/dL (74-118); POTASSIUM 3.1 mmol/L (3.5-5.1); SODIUM 131 mmol/L (136-145)
[2020-11-23] MEDS: LISINOPRIL 10 MG TAB PO SCH (09:00)
[2020-11-23] MEDS: PANTOPRAZOLE 40 MG 10ML VIAL IV SCH ×2 (11:11→17:10)
[2020-11-23] MEDS: VENLAFAXINE HCL 37.5MG XR CAP PO SCH (11:13)
[2020-11-23 13:45] LABS: ALANINE AMINOTRANSFERASE 10 IU/L (0-55); ALBUMIN 2.3 g/dL (3.5-5.0); ALBUMIN/GLOBULIN RATIO 0.8 (0.8-2.0); ALKALINE PHOSPHATASE 65 IU/L (40-150); ANION GAP 13.3 mmol/L (8-16); BLOOD UREA NITROGEN 5 mg/dL (7-26); BUN/CREATININE RATIO 8 (6-25); CALCIUM 7.4 mg/dL (8.4-10.2); CARBON DIOXIDE 14 mmol/L (22-29); CHLORIDE 104 mmol/L (98-107); CREATININE, SERUM 0.63 mg/dL (0.57-1.11); EST GLOMERULAR FILTRATION RATE > 60 ML/MIN (60-); GLUCOSE 277 mg/dL (74-118); POTASSIUM 3.3 mmol/L (3.5-5.1); SODIUM 128 mmol/L (136-145)
[2020-11-23] MEDS ORDERED: POTASSIUM CHLORIDE 10MEQ EA PO ONE (14:15)
[2020-11-23] MEDS ORDERED: SODIUM CHLORIDE 1 GM TAB PO SCH (15:00)
[2020-11-23] MEDS: ASCORBIC ACID 500 MG TAB PO SCH (17:10)
[2020-11-23] MEDS: CEFTRIAXONE SOD 1 GM in SODIUM CHLORIDE 0.9% 50ML 50 ML IV SCH (17:10)
[2020-11-23] MEDS: ACETAMINOPHEN 325 MG TAB PO PRN (17:29)
[2020-11-23] MEDS: ENOXAPARIN 30 MG/0.3 ML SYR SC SCH (21:00)
[2020-11-23] MEDS: FAMOTIDINE 20 MG/2 ML VIAL IV SCH (21:00)
[2020-11-23 21:03] LABS: ALANINE AMINOTRANSFERASE 11 IU/L (0-55); ALBUMIN 2.3 g/dL (3.5-5.0); ALBUMIN/GLOBULIN RATIO 0.8 (0.8-2.0); ALKALINE PHOSPHATASE 65 IU/L (40-150); ANION GAP 10.7 mmol/L (8-16); BLOOD UREA NITROGEN < 5 mg/dL (7-26); CALCIUM 7.9 mg/dL (8.4-10.2); CARBON DIOXIDE 18 mmol/L (22-29); CHLORIDE 106 mmol/L (98-107); CREATININE, SERUM 0.57 mg/dL (0.57-1.11); EST GLOMERULAR FILTRATION RATE > 60 ML/MIN (60-); GLUCOSE 118 mg/dL (74-118); SODIUM 132 mmol/L (136-145)
[2020-11-23 21:05] LABS: BUN/CREATININE RATIO 9 (6-25)
[2020-11-23 21:06] LABS: POTASSIUM 2.7 mmol/L (3.5-5.1)
[2020-11-23] MEDS: POTASSIUM CHLORIDE 20MEQ/100ML 200 ML IV PRN (21:15)
[2020-11-24] VITALS (19 sets, daily range): BP systolic 91–130; BP diastolic 55–93
[2020-11-24 00:43] LABS: ALANINE AMINOTRANSFERASE 11 IU/L (0-55); ALBUMIN 2.3 g/dL (3.5-5.0); ALBUMIN/GLOBULIN RATIO 0.7 (0.8-2.0); ALKALINE PHOSPHATASE 73 IU/L (40-150); BLOOD UREA NITROGEN < 5 mg/dL (7-26); BUN/CREATININE RATIO 9 (6-25); CALCIUM 7.8 mg/dL (8.4-10.2); CARBON DIOXIDE 18 mmol/L (22-29); CHLORIDE 105 mmol/L (98-107); CREATININE, SERUM 0.58 mg/dL (0.57-1.11); EST GLOMERULAR FILTRATION RATE > 60 ML/MIN (60-); GLUCOSE 153 mg/dL (74-118); SODIUM 132 mmol/L (136-145)
[2020-11-24] MEDS: DEXTROSE 5%/0.45% SOD CHL 1,000 ML IV SCH (04:28)
[2020-11-24 04:36] LABS: BASOPHILS % 0.1 % (0.0-1.0); HEMATOCRIT 33.6 % (34.2-44.1); HEMOGLOBIN 12.2 g/dL (12.0-16.0); LYMPHOCYTES # (AUTO) 1.7 (1.0-3.2); LYMPHOCYTES % 23.2 % (18.0-39.1); MEAN CORPUSCULAR HEMOGLOBIN 28.2 pg (28-32); MEAN CORPUSCULAR HGB CONC 36.3 g/dL (31-35); MEAN CORPUSCULAR VOLUME 77.8 fL (81-99); MONOCYTES # (AUTO) 0.3 (0.2-0.8); MONOCYTES % 4.2 % (4.4-11.3); NEUTROPHILS # (AUTO) 5.3 (2.1-6.9); NEUTROPHILS % 72.1 % (38.7-80.0); PLATELET COUNT 178 x10e3/uL (140-360); RED BLOOD COUNT 4.32 x10e6/uL (3.6-5.1); RED CELL DISTRIBUTION WIDTH 11.9 % (11.7-14.4)
[2020-11-24 04:56] LABS: ALANINE AMINOTRANSFERASE 11 IU/L (0-55); ALBUMIN 2.4 g/dL (3.5-5.0); ALBUMIN/GLOBULIN RATIO 0.8 (0.8-2.0); ALKALINE PHOSPHATASE 72 IU/L (40-150); ANION GAP 10.8 mmol/L (8-16); BLOOD UREA NITROGEN < 5 mg/dL (7-26); CALCIUM 7.9 mg/dL (8.4-10.2); CARBON DIOXIDE 19 mmol/L (22-29); CHLORIDE 107 mmol/L (98-107); CREATININE, SERUM 0.49 mg/dL (0.57-1.11); EST GLOMERULAR FILTRATION RATE > 60 ML/MIN (60-); SODIUM 134 mmol/L (136-145)
[2020-11-24 05:16] LABS: BUN/CREATININE RATIO 10 (6-25)
[2020-11-24 05:17] LABS: GLUCOSE 53 mg/dL (74-118); POTASSIUM 2.8 mmol/L (3.5-5.1)
[2020-11-24] MEDS ORDERED: DEXTROSE 50% SYRINGE 50 ML IV STA (05:25)
[2020-11-24] MEDS: POTASSIUM CHLORIDE 20MEQ/100ML 200 ML IV PRN ×2 (05:30→11:57)
[2020-11-24] MEDS ORDERED: DEXTROSE 50% SYRINGE 50 ML IV ONE (05:32)
[2020-11-24] MEDS ORDERED: DEXTROSE 50% SYRINGE 50 ML IV PRN ×2 (06:00→14:45)
[2020-11-24] MEDS: SUCRALFATE 1 GM/10 ML SUSP PO SCH ×5 (06:12→20:37)
[2020-11-24] MEDS: ACETAMINOPHEN 325 MG TAB PO PRN ×2 (06:15→13:00)
[2020-11-24] MEDS: ONDANSETRON HCL INJ 2MG/ML 2ML 2 MG/ML VIAL IV PRN ×2 (07:30→13:50)
[2020-11-24] MEDS: INSULIN REGULAR, HUMAN 3ML VL 100 UNIT in SODIUM CHLORIDE 0.9% 99 ML IV SCH ×4 (07:51→14:30)
[2020-11-24] MEDS ORDERED: SUCRALFATE 1 GM TAB ONE (08:29)
[2020-11-24] MEDS: LISINOPRIL 10 MG TAB PO SCH (09:00)
[2020-11-24] MEDS: VENLAFAXINE HCL 37.5MG XR CAP PO SCH (09:08)
[2020-11-24] MEDS: PANTOPRAZOLE 40 MG 10ML VIAL IV SCH ×2 (09:08→16:21)
[2020-11-24] MEDS: ZINC SULFATE 220 MG CAP PO SCH (09:09)
[2020-11-24] MEDS: CHOLECALCIFEROL 400 UNIT TAB PO SCH (09:09)
[2020-11-24] MEDS: ENOXAPARIN 30 MG/0.3 ML SYR SC SCH ×2 (09:09→20:37)
[2020-11-24] MEDS: ASCORBIC ACID 500 MG TAB PO SCH ×2 (09:09→16:21)
[2020-11-24 11:39] LABS: ALANINE AMINOTRANSFERASE 11 IU/L (0-55); ALBUMIN 2.4 g/dL (3.5-5.0); ALBUMIN/GLOBULIN RATIO 0.8 (0.8-2.0); ALKALINE PHOSPHATASE 73 IU/L (40-150); ANION GAP 11.9 mmol/L (8-16); BLOOD UREA NITROGEN < 5 mg/dL (7-26); CALCIUM 7.9 mg/dL (8.4-10.2); CARBON DIOXIDE 22 mmol/L (22-29); CHLORIDE 102 mmol/L (98-107); CREATININE, SERUM 0.49 mg/dL (0.57-1.11); EST GLOMERULAR FILTRATION RATE > 60 ML/MIN (60-); GLUCOSE 71 mg/dL (74-118); SODIUM 133 mmol/L (136-145)
[2020-11-24 11:49] LABS: BUN/CREATININE RATIO 10 (6-25)
[2020-11-24 11:50] LABS: POTASSIUM 2.9 mmol/L (3.5-5.1)
[2020-11-24] MEDS ORDERED: PROMETHAZINE 12.5MG/ NACL 0.9% 12.5 MG/50 ML BAG IV PRN (13:45)
[2020-11-24] MEDS: METOCLOPRAMIDE HCL 10 MG/2ML VIAL IV SCH ×2 (14:11→21:37)
[2020-11-24] MEDS: CEFTRIAXONE SOD 1 GM in SODIUM CHLORIDE 0.9% 50ML 50 ML IV SCH (15:38)
[2020-11-24] MEDS: INSULIN LISPRO 100 UNIT/1 ML 3ML VIAL SQ SCH ×2 (16:21→20:19)
[2020-11-24] MEDS: FAMOTIDINE 20 MG/2 ML VIAL IV SCH (16:21)
[2020-11-24] MEDS ORDERED: SODIUM CHLORIDE 0.9% 1000ML 1,000 ML ONE (17:32)
[2020-11-24] MEDS: SODIUM CHLORIDE 0.9% 1000ML 1,000 ML IV SCH (18:36)
[2020-11-24 19:28] LABS: ALANINE AMINOTRANSFERASE 12 IU/L (0-55); ALBUMIN 2.5 g/dL (3.5-5.0); ALBUMIN/GLOBULIN RATIO 0.8 (0.8-2.0); ALKALINE PHOSPHATASE 79 IU/L (40-150); ANION GAP 15.2 mmol/L (8-16); CALCIUM 7.8 mg/dL (8.4-10.2); CARBON DIOXIDE 21 mmol/L (22-29); CHLORIDE 97 mmol/L (98-107); CREATININE, SERUM 0.57 mg/dL (0.57-1.11); EST GLOMERULAR FILTRATION RATE > 60 ML/MIN (60-); GLUCOSE 221 mg/dL (74-118); POTASSIUM 3.2 mmol/L (3.5-5.1); SODIUM 130 mmol/L (136-145)
[2020-11-24 19:30] LABS: BLOOD UREA NITROGEN < 2 mg/dL (7-26); BUN/CREATININE RATIO 4 (6-25)
[2020-11-24] MEDS: MIRTAZAPINE 15 MG TAB PO SCH (20:37)
[2020-11-25] VITALS (8 sets, daily range): BP systolic 102–125; BP diastolic 70–88
[2020-11-25] MEDS: DEXTROSE 5%/0.45% SOD CHL 1,000 ML IV SCH ×2 (00:15→08:22)
[2020-11-25] MEDS ORDERED: MAGNESIUM SULFATE 2GM/50ML 50 ML IV ONE ×2 (00:30→02:30)
[2020-11-25] MEDS: INSULIN REGULAR, HUMAN 3ML VL 100 UNIT in SODIUM CHLORIDE 0.9% 99 ML IV SCH ×4 (00:30→08:22)
[2020-11-25] MEDS: SODIUM CHLORIDE 0.9% 1000ML 1,000 ML IV SCH ×2 (06:04→19:48)
[2020-11-25] MEDS: METOCLOPRAMIDE HCL 10 MG/2ML VIAL IV SCH ×4 (06:04→23:32)
[2020-11-25 06:13] LABS: HEMATOCRIT 31.9 % (34.2-44.1); HEMOGLOBIN 11.5 g/dL (12.0-16.0); LYMPHOCYTES # (AUTO) 0.7 (1.0-3.2); LYMPHOCYTES % 14.9 % (18.0-39.1); MEAN CORPUSCULAR HEMOGLOBIN 27.3 pg (28-32); MEAN CORPUSCULAR HGB CONC 36.1 g/dL (31-35); MEAN CORPUSCULAR VOLUME 75.8 fL (81-99); MONOCYTES # (AUTO) 0.3 (0.2-0.8); NEUTROPHILS # (AUTO) 3.9 (2.1-6.9); NEUTROPHILS % 78.7 % (38.7-80.0); PLATELET COUNT 203 x10e3/uL (140-360); RED BLOOD COUNT 4.21 x10e6/uL (3.6-5.1); RED CELL DISTRIBUTION WIDTH 12.1 % (11.7-14.4)
[2020-11-25 06:31] LABS: ALANINE AMINOTRANSFERASE 12 IU/L (0-55); ALBUMIN 2.4 g/dL (3.5-5.0); ALBUMIN/GLOBULIN RATIO 0.8 (0.8-2.0); ALKALINE PHOSPHATASE 82 IU/L (40-150); ANION GAP 14.8 mmol/L (8-16); BLOOD UREA NITROGEN < 5 mg/dL (7-26); BUN/CREATININE RATIO 9 (6-25); CALCIUM 7.6 mg/dL (8.4-10.2); CARBON DIOXIDE 25 mmol/L (22-29); CHLORIDE 96 mmol/L (98-107); CREATININE, SERUM 0.54 mg/dL (0.57-1.11); EST GLOMERULAR FILTRATION RATE > 60 ML/MIN (60-); GLUCOSE 258 mg/dL (74-118); SODIUM 133 mmol/L (136-145)
[2020-11-25 06:32] LABS: POTASSIUM 2.8 mmol/L (3.5-5.1)
[2020-11-25] MEDS: FAMOTIDINE 20 MG/2 ML VIAL IV SCH ×2 (08:21→16:04)
[2020-11-25] MEDS: SUCRALFATE 1 GM/10 ML SUSP PO SCH ×4 (08:21→21:25)
[2020-11-25] MEDS: PANTOPRAZOLE 40 MG 10ML VIAL IV SCH ×2 (08:21→16:05)
[2020-11-25] MEDS: CHOLECALCIFEROL 400 UNIT TAB PO SCH (08:22)
[2020-11-25] MEDS: ACETAMINOPHEN 325 MG TAB PO PRN ×2 (08:22→16:08)
[2020-11-25] MEDS: ASCORBIC ACID 500 MG TAB PO SCH ×2 (08:22→16:05)
[2020-11-25] MEDS: ENOXAPARIN 30 MG/0.3 ML SYR SC SCH ×2 (08:22→21:25)
[2020-11-25] MEDS: LISINOPRIL 10 MG TAB PO SCH (08:22)
[2020-11-25] MEDS: ZINC SULFATE 220 MG CAP PO SCH (08:22)
[2020-11-25] MEDS: POTASSIUM CHLORIDE 20MEQ/100ML 200 ML IV PRN (08:23)
[2020-11-25] MEDS: INSULIN LISPRO 100 UNIT/1 ML 3ML VIAL SQ SCH ×4 (08:24→20:50)
[2020-11-25] MEDS ORDERED: POTASSIUM CHLORIDE 20 MEQ TAB CR PO ONE (09:30)
[2020-11-25] MEDS ORDERED: SODIUM CHLORIDE IV SCH (10:00)
[2020-11-25] MEDS ORDERED: POTASSIUM PHOSPHATE IV SCH (10:00)
[2020-11-25] MEDS ORDERED: POTASSIUM PHOSPHATE 40 MM in SODIUM CHLORIDE 0.9% 250ML 250 ML IV ONE (10:00)
[2020-11-25] MEDS ORDERED: CEFTRIAXONE SOD 1 GM VIAL ONE (15:24)
[2020-11-25] MEDS ORDERED: SODIUM CHLORIDE 0.9% 50ML 50 ML ONE (15:25)
[2020-11-25] MEDS: INS LISP PRO/LISP HUMAN 75/25 100 UNITS/ML VIAL SC SCH (16:04)
[2020-11-25] MEDS: CEFTRIAXONE SOD 1 GM in SODIUM CHLORIDE 0.9% 50ML 50 ML IV SCH (16:04)
[2020-11-25] MEDS: ONDANSETRON HCL INJ 2MG/ML 2ML 2 MG/ML VIAL IV PRN (16:08)
[2020-11-25] MEDS ORDERED: LOPERAMIDE HCL 2 MG CAP PO PRN (18:45)
[2020-11-25] MEDS ORDERED: LOPERAMIDE HCL 2 MG CAP PO ONE (18:45)
[2020-11-25] MEDS ORDERED: POTASSIUM CHLORIDE 20MEQ/100ML 100 ML IV ONE ×2 (20:45→22:00)
[2020-11-25] MEDS: MIRTAZAPINE 15 MG TAB PO SCH (21:25)
[2020-11-26] VITALS (8 sets, daily range): BP systolic 91–115; BP diastolic 51–79
[2020-11-26] MEDS: METOCLOPRAMIDE HCL 10 MG/2ML VIAL IV SCH ×4 (05:35→23:14)
[2020-11-26 06:41] LABS: BASOPHILS % 0.2 % (0.0-1.0); HEMATOCRIT 29.4 % (34.2-44.1); HEMOGLOBIN 10.3 g/dL (12.0-16.0); LYMPHOCYTES # (AUTO) 1.2 (1.0-3.2); LYMPHOCYTES % 21.3 % (18.0-39.1); MEAN CORPUSCULAR VOLUME 77.2 fL (81-99); MONOCYTES # (AUTO) 0.5 (0.2-0.8); MONOCYTES % 8.2 % (4.4-11.3); NEUTROPHILS # (AUTO) 3.8 (2.1-6.9); NEUTROPHILS % 69.9 % (38.7-80.0); PLATELET COUNT 247 x10e3/uL (140-360); RED BLOOD COUNT 3.81 x10e6/uL (3.6-5.1); RED CELL DISTRIBUTION WIDTH 12.4 % (11.7-14.4)
[2020-11-26 07:00] LABS: ALANINE AMINOTRANSFERASE 10 IU/L (0-55); ALBUMIN 2.2 g/dL (3.5-5.0); ALBUMIN/GLOBULIN RATIO 0.8 (0.8-2.0); ALKALINE PHOSPHATASE 72 IU/L (40-150); ANION GAP 14.3 mmol/L (8-16); BLOOD UREA NITROGEN < 5 mg/dL (7-26); CALCIUM 7.7 mg/dL (8.4-10.2); CARBON DIOXIDE 25 mmol/L (22-29); CHLORIDE 99 mmol/L (98-107); EST GLOMERULAR FILTRATION RATE > 60 ML/MIN (60-); GLUCOSE 151 mg/dL (74-118); MAGNESIUM 1.6 MG/DL (1.3-2.1); POTASSIUM 3.3 mmol/L (3.5-5.1); SODIUM 135 mmol/L (136-145)
[2020-11-26 07:13] LABS: BUN/CREATININE RATIO 10 (6-25)
[2020-11-26] MEDS: LISINOPRIL 10 MG TAB PO SCH (08:02)
[2020-11-26] MEDS: CHOLECALCIFEROL 400 UNIT TAB PO SCH (08:02)
[2020-11-26] MEDS: PANTOPRAZOLE 40 MG 10ML VIAL IV SCH ×2 (08:02→17:13)
[2020-11-26] MEDS: ENOXAPARIN 30 MG/0.3 ML SYR SC SCH ×2 (08:02→19:54)
[2020-11-26] MEDS: ACETAMINOPHEN 325 MG TAB PO PRN ×2 (08:02→23:24)
[2020-11-26] MEDS: FAMOTIDINE 20 MG/2 ML VIAL IV SCH ×2 (08:02→17:13)
[2020-11-26] MEDS: ASCORBIC ACID 500 MG TAB PO SCH ×2 (08:02→17:13)
[2020-11-26] MEDS: ZINC SULFATE 220 MG CAP PO SCH (08:02)
[2020-11-26] MEDS: SUCRALFATE 1 GM/10 ML SUSP PO SCH ×4 (08:02→19:54)
[2020-11-26] MEDS: INSULIN LISPRO 100 UNIT/1 ML 3ML VIAL SQ SCH ×4 (08:03→21:00)
[2020-11-26] MEDS: INS LISP PRO/LISP HUMAN 75/25 100 UNITS/ML VIAL SC SCH (08:04)
[2020-11-26] MEDS: SODIUM CHLORIDE 0.9% 1000ML 1,000 ML IV SCH (09:07)
[2020-11-26] MEDS ORDERED: FUROSEMIDE INJ 10 MG/ML 4 ML VIAL IV ONE (11:00)
[2020-11-26] MEDS: AZITHROMYCIN 500MG/NS 250 ML 250 ML IV SCH (12:29)
[2020-11-26] MEDS: CEFTRIAXONE SOD 1 GM in SODIUM CHLORIDE 0.9% 50ML 50 ML IV SCH (14:38)
[2020-11-26] MEDS ORDERED: CEFTRIAXONE SOD 1 GM VIAL ONE (14:45)
[2020-11-26] MEDS ORDERED: SODIUM CHLORIDE 0.9% 50ML 50 ML ONE (14:45)
[2020-11-26] MEDS ORDERED: INS LISP PRO/LISP HUMAN 75/25 100 UNITS/ML VIAL SC SCH (16:30)
[2020-11-26] MEDS ORDERED: METFORMIN HCL 500 MG TAB PO SCH (17:00)
[2020-11-26] MEDS: POTASSIUM CHLORIDE 20MEQ/100ML 100 ML IV PRN (17:25)
[2020-11-26] MEDS ORDERED: REMDESIVIR 200MG/NS 100ML 200 MG IV ONE (18:00)
[2020-11-26] MEDS: MIRTAZAPINE 15 MG TAB PO SCH (19:54)
[2020-11-26] MEDS: ZOLPIDEM TARTRATE 5 MG TAB PO PRN (22:57)
[2020-11-27] VITALS (8 sets, daily range): BP systolic 100–120; BP diastolic 63–88
[2020-11-27 05:15] LABS: BASOPHILS % 0.4 % (0.0-1.0); EOSINOPHILS % 0.2 % (0.0-6.0); HEMOGLOBIN 10.4 g/dL (12.0-16.0); LYMPHOCYTES # (AUTO) 2.1 (1.0-3.2); LYMPHOCYTES % 37.2 % (18.0-39.1); MEAN CORPUSCULAR HEMOGLOBIN 27.5 pg (28-32); MEAN CORPUSCULAR HGB CONC 34.7 g/dL (31-35); MEAN CORPUSCULAR VOLUME 79.4 fL (81-99); MONOCYTES # (AUTO) 0.7 (0.2-0.8); MONOCYTES % 13.1 % (4.4-11.3); NEUTROPHILS # (AUTO) 2.7 (2.1-6.9); PLATELET COUNT 290 x10e3/uL (140-360); RED BLOOD COUNT 3.78 x10e6/uL (3.6-5.1); RED CELL DISTRIBUTION WIDTH 12.7 % (11.7-14.4)
[2020-11-27] MEDS: METOCLOPRAMIDE HCL 10 MG/2ML VIAL IV SCH ×3 (05:32→16:48)
[2020-11-27 05:37] LABS: ALANINE AMINOTRANSFERASE 11 IU/L (0-55); ALBUMIN 2.2 g/dL (3.5-5.0); ALBUMIN/GLOBULIN RATIO 0.7 (0.8-2.0); ALKALINE PHOSPHATASE 78 IU/L (40-150); ANION GAP 13.4 mmol/L (8-16); BLOOD UREA NITROGEN < 5 mg/dL (7-26); CARBON DIOXIDE 29 mmol/L (22-29); CHLORIDE 96 mmol/L (98-107); CREATININE, SERUM 0.52 mg/dL (0.57-1.11); EST GLOMERULAR FILTRATION RATE > 60 ML/MIN (60-); GLUCOSE 166 mg/dL (74-118); MAGNESIUM 1.4 MG/DL (1.3-2.1); POTASSIUM 3.4 mmol/L (3.5-5.1); SODIUM 135 mmol/L (136-145)
[2020-11-27 05:38] LABS: BUN/CREATININE RATIO 10 (6-25)
[2020-11-27 05:41] LABS: % IRON SATURATION 6 % (15-50); IRON 10 ug/dL (50-170); TOTAL IRON BINDING CAPACITY 178 ug/dL (261-478); TRANSFERRIN 127 mg/dL (180-382)
[2020-11-27] MEDS: DEXAMETHASONE SOD PHOS INJ 4 MG/ML VIAL IV SCH (08:14)
[2020-11-27] MEDS: FAMOTIDINE 20 MG/2 ML VIAL IV SCH ×2 (08:14→16:48)
[2020-11-27] MEDS: PANTOPRAZOLE 40 MG 10ML VIAL IV SCH ×2 (08:14→16:48)
[2020-11-27] MEDS: SUCRALFATE 1 GM/10 ML SUSP PO SCH ×4 (08:14→20:52)
[2020-11-27] MEDS: POTASSIUM CHLORIDE 20MEQ/100ML 100 ML IV PRN (08:16)
[2020-11-27] MEDS: ASCORBIC ACID 500 MG TAB PO SCH ×2 (08:16→16:48)
[2020-11-27] MEDS: LISINOPRIL 10 MG TAB PO SCH (08:16)
[2020-11-27] MEDS: ENOXAPARIN 30 MG/0.3 ML SYR SC SCH ×2 (08:16→20:53)
[2020-11-27] MEDS: ZINC SULFATE 220 MG CAP PO SCH (08:16)
[2020-11-27] MEDS: CHOLECALCIFEROL 400 UNIT TAB PO SCH (08:16)
[2020-11-27] MEDS: INSULIN LISPRO 100 UNIT/1 ML 3ML VIAL SQ SCH ×4 (08:27→21:00)
[2020-11-27] MEDS ORDERED: PIOGLITAZONE HCL 15 MG TAB PO SCH (09:00)
[2020-11-27] MEDS: AZITHROMYCIN 500MG/NS 250 ML 250 ML IV SCH (11:02)
[2020-11-27] MEDS ORDERED: SODIUM CHLORIDE 0.9% 50ML 50 ML ONE ×2 (16:32→16:33)
[2020-11-27] MEDS ORDERED: CEFTRIAXONE SOD 1 GM VIAL ONE (16:32)
[2020-11-27] MEDS: CEFTRIAXONE SOD 1 GM in SODIUM CHLORIDE 0.9% 50ML 50 ML IV SCH (16:48)
[2020-11-27] MEDS: REMDESIVIR 100MG/NS 100ML 100 MG IV SCH (17:30)
[2020-11-27] MEDS ORDERED: [UNRECOGNIZED DRUG - OTHER] IV SCH (18:00)
[2020-11-27] MEDS ORDERED: REMDESIVIR IV SCH (18:00)
[2020-11-27] MEDS: MIRTAZAPINE 15 MG TAB PO SCH (20:53)
[2020-11-27] MEDS: ZOLPIDEM TARTRATE 5 MG TAB PO PRN (20:55)
[2020-11-27] MEDS ORDERED: MAGNESIUM SULF 1GRAM/DEXTROSE 100 ML IV ONE (22:30)
[2020-11-27] MEDS ORDERED: METOPROLOL TARTRATE INJ 1 MG/ML VIAL IV PRN (22:45)
[2020-11-27] MEDS ORDERED: IRON SUCROSE 100 MG in SODIUM CHLORIDE 0.9% 100 ML 100 ML IV SCH (23:15)
[2020-11-28] MEDS: METOCLOPRAMIDE HCL 10 MG/2ML VIAL IV SCH ×4 (00:27→16:35)
[2020-11-28 01:12] VITALS: BP 124/79
[2020-11-28] MEDS ORDERED: MAGNESIUM SULFATE 2GM/50ML 50 ML IV ONE (03:30)
[2020-11-28 04:43] VITALS: BP 104/64
[2020-11-28 04:56] LABS: ANION GAP 14.4 mmol/L (8-16); BLOOD UREA NITROGEN 6 mg/dL (7-26); BUN/CREATININE RATIO 10 (6-25); CALCIUM 8.6 mg/dL (8.4-10.2); CARBON DIOXIDE 33 mmol/L (22-29); CHLORIDE 90 mmol/L (98-107); CREATININE, SERUM 0.63 mg/dL (0.57-1.11); EST GLOMERULAR FILTRATION RATE > 60 ML/MIN (60-); GLUCOSE 323 mg/dL (74-118); PHOSPHORUS 2.8 MG/DL (2.3-4.7); POTASSIUM 3.4 mmol/L (3.5-5.1); SODIUM 134 mmol/L (136-145)
[2020-11-28] MEDS: MAGNESIUM SULFATE 2GM/50ML 50 ML IV ONE ×2 (05:14→05:26)
[2020-11-28] MEDS: POTASSIUM CHLORIDE 20MEQ/100ML 100 ML IV PRN (06:35)
[2020-11-28] MEDS ORDERED: POTASSIUM CHLORIDE 20 MEQ TAB CR PO ONE (06:55)
[2020-11-28 08:00] VITALS: BP 113/79
[2020-11-28 08:31] VITALS: BP 113/79
[2020-11-28] MEDS: FAMOTIDINE 20 MG/2 ML VIAL IV SCH ×2 (08:47→16:35)
[2020-11-28] MEDS: PANTOPRAZOLE 40 MG 10ML VIAL IV SCH ×2 (08:47→16:35)
[2020-11-28] MEDS: SUCRALFATE 1 GM/10 ML SUSP PO SCH ×3 (08:47→16:35)
[2020-11-28] MEDS: DEXAMETHASONE SOD PHOS INJ 4 MG/ML VIAL IV SCH (08:47)
[2020-11-28] MEDS: ENOXAPARIN 30 MG/0.3 ML SYR SC SCH (08:48)
[2020-11-28] MEDS: ZINC SULFATE 220 MG CAP PO SCH (08:48)
[2020-11-28] MEDS: LISINOPRIL 10 MG TAB PO SCH (08:48)
[2020-11-28] MEDS: ASCORBIC ACID 500 MG TAB PO SCH ×2 (08:48→16:35)
[2020-11-28] MEDS: CHOLECALCIFEROL 400 UNIT TAB PO SCH (08:48)
[2020-11-28] MEDS: INSULIN LISPRO 100 UNIT/1 ML 3ML VIAL SQ SCH ×3 (08:54→17:07)
[2020-11-28] MEDS: INS LISP PRO/LISP HUMAN 75/25 100 UNITS/ML VIAL SC SCH ×2 (08:55→17:08)
[2020-11-28] MEDS ORDERED: SODIUM CHLORIDE 1 GM TAB PO SCH (09:00)
[2020-11-28] MEDS ORDERED: IRON SUCROSE 100 MG in SODIUM CHLORIDE 0.9% 100 ML 100 ML IV SCH (09:00)
[2020-11-28] MEDS: ACETAMINOPHEN 325 MG TAB PO PRN (10:33)
[2020-11-28] MEDS: AZITHROMYCIN 500MG/NS 250 ML 250 ML IV SCH (12:27)
[2020-11-28 13:48] VITALS: BP 117/79
[2020-11-28] MEDS ORDERED: CEFTRIAXONE SOD 1 GM VIAL ONE ×2 (15:30→16:32)
[2020-11-28] MEDS ORDERED: SODIUM CHLORIDE 0.9% 50ML 50 ML ONE (16:33)
[2020-11-28] MEDS: CEFTRIAXONE SOD 1 GM in SODIUM CHLORIDE 0.9% 50ML 50 ML IV SCH (16:35)
[2020-11-28] MEDS: REMDESIVIR 100MG/NS 100ML 100 MG IV SCH (16:35)
[2020-11-28] MEDS ORDERED: IMODIUM2 MG PO (18:02)
[2020-11-28] MEDS ORDERED: ZINC SULFATE220 M1 PO (18:02)
[2020-11-28] MEDS ORDERED: SUCRALFATE1 G/10 ML PO (18:02)
[2020-11-28] MEDS ORDERED: MAG-OXIDE400 MG PO (18:02)
[2020-11-28] MEDS ORDERED: Cholecalciferol PO (18:02)
[2020-11-28] MEDS ORDERED: MIRTAZAPINE15 MG PO (18:02)
[2020-11-28] MEDS ORDERED: SODIUM CHLORIDE1 GM PO (18:02)
[2020-11-28] MEDS ORDERED: LISINOPRIL10 MG PO (18:02)
[2020-11-28] MEDS ORDERED: Insulin Lispro SQ (18:02)
[2020-11-28] MEDS ORDERED: ELIQUIS2.5 MG PO (18:02)
[2020-11-28] MEDS ORDERED: ASCORBIC ACID500 MG PO (18:02)
[2020-11-28] MEDS ORDERED: PREDNISONE20 MG PO (18:02)
[2020-11-28] MEDS ORDERED: HUMALOG MI100 UNITS/ SC (18:02)
[2020-11-28 18:26] VITALS: BP 110/83
[2020-11-29] MEDS ORDERED: MAGNESIUM OXIDE 400 MG TAB PO SCH (09:00)
== END 2020-11-28 18:50 | disposition left against medical advice (07) | DRG 177 ==
LOC: ER 10:31 → ERHOLD 12:04 → COVIDICU 11-23 06:39 → IMCU 11-24 17:19
PROVIDERS: ADMIT Internal Medicine; ATTEND Internal Medicine
PROC: 02HV33Z Insertion of Infusion Device into Superior Vena Cava, Percutaneous Approach (ICD-10-PCS; principal; 2020-11-22)
PROC: B548ZZA Ultrasonography of Superior Vena Cava, Guidance (ICD-10-PCS; 2020-11-22)
PROC: XW043E5 Introduction of Remdesivir Anti-infective into Central Vein, Percutaneous Approach, New Technology Group 5 (ICD-10-PCS; 2020-11-27)
PROC: 3E0433Z Introduction of Anti-inflammatory into Central Vein, Percutaneous Approach (ICD-10-PCS; 2020-11-27)
DX: U07.1 COVID-19 (principal); E11.10 Type 2 diabetes mellitus with ketoacidosis without coma; J12.82 Pneumonia due to coronavirus disease 2019; J15.9 Unspecified bacterial pneumonia; J96.01 Acute respiratory failure with hypoxia; E87.1 Hypo-osmolality and hyponatremia; I10 Essential (primary) hypertension; Z88.2 Allergy status to sulfonamides; Z88.8 Allergy status to other drugs, medicaments and biological substances; G47.00 Insomnia, unspecified; K21.9 Gastro-esophageal reflux disease without esophagitis; Z79.4 Long term (current) use of insulin; E83.39 Other disorders of phosphorus metabolism; E83.42 Hypomagnesemia; E87.6 Hypokalemia; F43.23 Adjustment disorder with mixed anxiety and depressed mood; F41.1 Generalized anxiety disorder; D50.9 Iron deficiency anemia, unspecified
CPT/HCPCS: 36415; 36569; 71045; 74177; 76705; 80048; 80053; 80307; 81001; 82607; 82746; 82947; 82948; 83036; 83540; 83690; 83735; 83880; 84100; 84132; 84466; 84702; 85025; 85045; 87086; 96361; 96372; 99285; J0360; J0456; J0696; J1100; J1630; J1650; J1756; J1815; J1817; J1885; J1940; J2405; J2765; J3475; J3480; J7030; J7050; J7121; J7799; Q9967; U0002

== ENCOUNTER 2021-02-26 13:34 | Emergency (ER) | payer MEDICARE ==
[~2021-02-26] VITALS: Ht 152.4 cm; Wt 55.3 kg
[~2021-02-26 13:34] MED LIST changes: +ASCORBIC ACID500 MG PO; +Cholecalciferol PO; +ELIQUIS2.5 MG PO; +HUMALOG MI100 UNITS/ SC; +IMODIUM2 MG PO; +Insulin Lispro SQ; +MAG-OXIDE400 MG PO; +MIRTAZAPINE15 MG PO; +SODIUM CHLORIDE1 GM PO; +SUCRALFATE1 G/10 ML PO; +ZINC SULFATE220 M1 PO
[2021-02-26 14:52] LABS: AMPHETAMINES SCREEN,URINE NEGATIVE (NEGATIVE); BENZODIAZEPINES SCREEN,URINE NEGATIVE (NEGATIVE); CLARITY,URINE CLEAR (CLEAR); COLOR,URINE YELLOW (YELLOW); KETONES,URINE NEGATIVE (NEGATIVE); LEUKOCYTE ESTERASE ,URINE NEGATIVE (NEGATIVE); NITRITE,URINE NEGATIVE (NEGATIVE); PHENCYCLIDINE SCREEN,URINE NEGATIVE (NEGATIVE); PROTEIN,URINE DIPSTICK NEGATIVE (NEGATIVE)
[2021-02-26 14:53] LABS: URINE UROBILINOGEN 0.2 mg/dL (0.2 - 1)
[2021-02-26 15:09] LABS: EPITHELIAL CELLS,URINE RARE /LPF; RBC,URINE 0-5 /HPF (0-5); WBC,URINE (MAN) 0-5 /HPF (0-5)
[2021-02-26 15:46] LABS: BASOPHILS % 0.4 % (0.0-1.0); EOSINOPHILS # (AUTO) 0.1 (0.0-0.4); EOSINOPHILS % 0.6 % (0.0-6.0); HEMATOCRIT 39.4 % (34.2-44.1); HEMOGLOBIN 13.6 g/dL (12.0-16.0); LYMPHOCYTES % 38.7 % (18.0-39.1); MEAN CORPUSCULAR HEMOGLOBIN 28.1 pg (28-32); MEAN CORPUSCULAR HGB CONC 34.5 g/dL (31-35); MEAN CORPUSCULAR VOLUME 81.4 fL (81-99); MONOCYTES # (AUTO) 0.6 (0.2-0.8); MONOCYTES % 7.3 % (4.4-11.3); NEUTROPHILS # (AUTO) 4.1 (2.1-6.9); NEUTROPHILS % 52.9 % (38.7-80.0); PLATELET COUNT 279 x10e3/uL (140-360); RED BLOOD COUNT 4.84 x10e6/uL (3.6-5.1); RED CELL DISTRIBUTION WIDTH 11.9 % (11.7-14.4)
[2021-02-26 15:55] LABS: INR 0.82; PROTHROMBIN TIME 11.9 seconds (11.9-14.5)
[2021-02-26 15:56] LABS: PARTIAL THROMBOPLASTIN TIME 27.5 seconds (23.8-35.5)
[2021-02-26 16:05] LABS: ALANINE AMINOTRANSFERASE 14 IU/L (0-55); ALBUMIN/GLOBULIN RATIO 1.1 (0.8-2.0); ALKALINE PHOSPHATASE 126 IU/L (40-150); ANION GAP 18.4 mmol/L (8-16); BLOOD UREA NITROGEN 8 mg/dL (7-26); BUN/CREATININE RATIO 9 (6-25); CALCIUM 10.2 mg/dL (8.4-10.2); CARBON DIOXIDE 25 mmol/L (22-29); CHLORIDE 91 mmol/L (98-107); CREATINE KINASE 33 IU/L (29-168); CREATININE, SERUM 0.85 mg/dL (0.57-1.11); EST GLOMERULAR FILTRATION RATE > 60 ML/MIN (60-); GLUCOSE 395 mg/dL (74-118); POTASSIUM 3.4 mmol/L (3.5-5.1); SODIUM 131 mmol/L (136-145)
[2021-02-26] MEDS ORDERED: SODIUM CHLORIDE 0.9% 1000ML 1,000 ML IV STA (16:37)
[2021-02-26] MEDS ORDERED: LORAZEPAM INJ 2 MG/ML VIAL IV ONE (16:45)
[2021-02-26] MEDS ORDERED: CEFTRIAXONE SOD 250 MG VIAL IV ONE (16:45)
[2021-02-26] MEDS ORDERED: CEFTRIAXONE SOD 1 GM in SODIUM CHLORIDE 0.9% 50ML 50 ML IV ONE (17:00)
[2021-02-26 18:46] VITALS: BP 109/79
== END 2021-02-26 19:17 | disposition home or self-care (01) ==
LOC: ER 13:57
DX: R42 Dizziness and giddiness (principal); F14.90 Cocaine use, unspecified, uncomplicated; E11.65 Type 2 diabetes mellitus with hyperglycemia; I10 Essential (primary) hypertension; F41.9 Anxiety disorder, unspecified
CPT/HCPCS: 36415; 70450; 71045; 80053; 80164; 80307; 81001; 82550; 82553; 83605; 83735; 84484; 85025; 85610; 85730; 87040; 87086; 93005; 99284; J0696; J2060; J7030

== ENCOUNTER 2021-04-29 14:50 | Inpatient (IN) | payer MEDICARE ==
[~2021-04-29] VITALS: Ht 149.9 cm; Wt 60.8 kg
[2021-04-29] MEDS ORDERED: SODIUM CHLORIDE 0.9% 1000ML 1,000 ML IV STA (15:16)
[2021-04-29] MEDS ORDERED: MORPHINE SULFATE INJ 4 MG/ML INJ 1ML IV STA (15:16)
[2021-04-29] MEDS ORDERED: ONDANSETRON HCL INJ 2MG/ML 2ML 2 MG/ML VIAL IV STA (15:16)
[2021-04-29] MEDS ORDERED: DICYCLOMINE HCL 20 MG/2 ML VIAL IM ONE (15:30)
[2021-04-29 15:57] LABS: BASOPHILS % 0.3 % (0.0-1.0); EOSINOPHILS % 0.6 % (0.0-6.0); HEMATOCRIT 38.2 % (34.2-44.1); HEMOGLOBIN 12.3 g/dL (12.0-16.0); LYMPHOCYTES # (AUTO) 1.5 (1.0-3.2); LYMPHOCYTES % 22.5 % (18.0-39.1); MEAN CORPUSCULAR HEMOGLOBIN 28.3 pg (28-32); MEAN CORPUSCULAR HGB CONC 32.2 g/dL (31-35); MEAN CORPUSCULAR VOLUME 87.8 fL (81-99); MONOCYTES # (AUTO) 0.5 (0.2-0.8); MONOCYTES % 7.3 % (4.4-11.3); NEUTROPHILS # (AUTO) 4.6 (2.1-6.9); PLATELET COUNT 220 x10e3/uL (140-360); RED BLOOD COUNT 4.35 x10e6/uL (3.6-5.1); RED CELL DISTRIBUTION WIDTH 12.5 % (11.7-14.4)
[2021-04-29 16:14] LABS: ALBUMIN 3.5 g/dL (3.5-5.0); ALBUMIN/GLOBULIN RATIO 1.1 (0.8-2.0); ANION GAP 22.4 mmol/L (8-16); CALCIUM 9.3 mg/dL (8.4-10.2); CREATININE, SERUM 1.12 mg/dL (0.57-1.11); MAGNESIUM 1.6 MG/DL (1.3-2.1); POTASSIUM 3.4 mmol/L (3.5-5.1)
[2021-04-29 16:34] LABS: CLARITY,URINE HAZY (CLEAR); COLOR,URINE YELLOW (YELLOW); KETONES,URINE NEGATIVE (NEGATIVE); LEUKOCYTE ESTERASE ,URINE NEGATIVE (NEGATIVE); NITRITE,URINE NEGATIVE (NEGATIVE); PROTEIN,URINE DIPSTICK NEGATIVE (NEGATIVE); URINE UROBILINOGEN 0.2 mg/dL (0.2 - 1)
[2021-04-29 16:38] LABS: BACTERIA,URINE FEW /HPF; EPITHELIAL CELLS,URINE FEW /LPF; RBC,URINE 0-5 /HPF (0-5); WBC,URINE (MAN) 0-5 /HPF (0-5)
[2021-04-29] MEDS ORDERED: INSULIN REGULAR, HUMAN 100 UNIT/1 ML IV ONE (16:45)
[2021-04-29] MEDS ORDERED: SODIUM CHLORIDE 0.9% 1000ML 1,000 ML IV SCH (16:45)
[2021-04-29 17:08] LABS: ABG HCO3 21 mmol/L (22-26); ABG PCO2 42 mmHg (35-45); ABG PH 7.31 (7.35-7.45); ABG PO2 103 mmHg (80-105); ABG TCO2 23
[2021-04-29] MEDS ORDERED: INSULIN REGULAR, HUMAN 3ML VL 100 UNIT in SODIUM CHLORIDE 0.9% 100 ML IV SCH ×2 (17:30)
[2021-04-29] MEDS ORDERED: MAGNESIUM SULF 1GRAM/DEXTROSE 100 ML IV PRN ×2 (17:30→23:15)
[2021-04-29] MEDS ORDERED: POTASSIUM CHLORIDE 20MEQ/100ML 200 ML IV PRN ×2 (17:30→23:15)
[2021-04-29] MEDS ORDERED: IOPAMIDOL 370 MG/ML 200 ML INFUS..BTL INJ ONE (17:47)
[2021-04-29] MEDS ORDERED: ONDANSETRON HCL INJ 2MG/ML 2ML 2 MG/ML VIAL IV PRN (18:00)
[2021-04-29] MEDS: SODIUM CHLORIDE 0.9% 1000ML 1,000 ML IV SCH ×2 (18:00→21:30)
[2021-04-29] MEDS ORDERED: LOPERAMIDE HCL 2 MG CAP PO PRN (18:30)
[2021-04-29] MEDS ORDERED: ZOLPIDEM TARTRATE 5 MG TAB PO PRN (18:30)
[2021-04-29] MEDS: DEXTROSE 5%/0.45% SOD CHL 1,000 ML IV SCH (19:17)
[2021-04-29] MEDS: MORPHINE SULFATE INJ 4 MG/ML INJ 1ML IV PRN (20:41)
[2021-04-29 22:24] VITALS: BP 108/78
[2021-04-29] MEDS ORDERED: INSULIN REGULAR, HUMAN 3ML VL 100 UNIT in SODIUM CHLORIDE 0.9% 100 ML IV PRN ×2 (22:30)
[2021-04-29 22:31] VITALS: BP 113/66
[2021-04-29 22:42] VITALS: BP 113/66
[2021-04-29 22:45] VITALS: BP 91/75
[2021-04-29 23:00] VITALS: BP 99/67
[2021-04-29 23:00] LABS: CREATINE KINASE 28 IU/L (29-168)
[2021-04-29 23:01] LABS: BLOOD UREA NITROGEN < 5 mg/dL (7-26); CALCIUM 8.7 mg/dL (8.4-10.2); CARBON DIOXIDE 24 mmol/L (22-29); CHLORIDE 103 mmol/L (98-107); CREATININE, SERUM 0.64 mg/dL (0.57-1.11); EST GLOMERULAR FILTRATION RATE 100 ML/MIN (60-); GLUCOSE 203 mg/dL (74-118); MAGNESIUM 1.5 MG/DL (1.3-2.1)
[2021-04-29 23:05] LABS: BUN/CREATININE RATIO 8 (6-25); SODIUM 137 mmol/L (136-145)
[2021-04-29] MEDS ORDERED: POTASSIUM CHLORIDE 20MEQ/100ML 100 ML INJ PRN (23:15)
[2021-04-29 23:30] VITALS: BP 108/72
[2021-04-29] MEDS: MIRTAZAPINE 15 MG TAB PO SCH (23:53)
[2021-04-30] VITALS (22 sets, daily range): BP systolic 80–129; BP diastolic 50–101
[2021-04-30] MEDS: DEXTROSE 5%/0.45% SOD CHL 1,000 ML IV SCH ×2 (03:30→09:30)
[2021-04-30 05:08] LABS: BASOPHILS % 0.4 % (0.0-1.0); EOSINOPHILS # (AUTO) 0.1 (0.0-0.4); EOSINOPHILS % 1.6 % (0.0-6.0); HEMATOCRIT 31.6 % (34.2-44.1); HEMOGLOBIN 10.5 g/dL (12.0-16.0); LYMPHOCYTES # (AUTO) 2.9 (1.0-3.2); LYMPHOCYTES % 39.5 % (18.0-39.1); MEAN CORPUSCULAR HEMOGLOBIN 28.5 pg (28-32); MEAN CORPUSCULAR HGB CONC 33.2 g/dL (31-35); MEAN CORPUSCULAR VOLUME 85.9 fL (81-99); MONOCYTES # (AUTO) 0.6 (0.2-0.8); MONOCYTES % 7.8 % (4.4-11.3); NEUTROPHILS # (AUTO) 3.7 (2.1-6.9); NEUTROPHILS % 50.6 % (38.7-80.0); PLATELET COUNT 243 x10e3/uL (140-360); RED BLOOD COUNT 3.68 x10e6/uL (3.6-5.1); RED CELL DISTRIBUTION WIDTH 12.7 % (11.7-14.4)
[2021-04-30 05:59] LABS: CREATINE KINASE 58 IU/L (29-168)
[2021-04-30 06:28] LABS: ALBUMIN 2.9 g/dL (3.5-5.0); ALBUMIN/GLOBULIN RATIO 1.1 (0.8-2.0); ANION GAP 12.8 mmol/L (8-16); CREATININE, SERUM 0.56 mg/dL (0.57-1.11); POTASSIUM 3.8 mmol/L (3.5-5.1)
[2021-04-30] MEDS ORDERED: DEXTROSE 50% SYRINGE 50 ML IV PRN (09:45)
[2021-04-30] MEDS: MORPHINE SULFATE INJ 4 MG/ML INJ 1ML IV PRN ×3 (09:47→21:52)
[2021-04-30 10:08] LABS: ANION GAP 13.7 mmol/L (8-16); BLOOD UREA NITROGEN < 5 mg/dL (7-26); CALCIUM 8.5 mg/dL (8.4-10.2); CARBON DIOXIDE 22 mmol/L (22-29); CHLORIDE 106 mmol/L (98-107); CREATININE, SERUM 0.63 mg/dL (0.57-1.11); EST GLOMERULAR FILTRATION RATE 102 ML/MIN (60-); GLUCOSE 217 mg/dL (74-118); MAGNESIUM 1.5 MG/DL (1.3-2.1); POTASSIUM 3.7 mmol/L (3.5-5.1); SODIUM 138 mmol/L (136-145)
[2021-04-30 10:10] LABS: BUN/CREATININE RATIO 8 (6-25)
[2021-04-30] MEDS: INSULIN REGULAR, HUMAN 100 UNIT/1 ML SQ SCH ×3 (11:54→20:31)
[2021-04-30] MEDS: INSULIN ASPART 70/30 100 UNITS/ML VIAL SC SCH (16:39)
[2021-04-30] MEDS ORDERED: PNEUMOCOCCAL VACCINE POLYVALENT 23 MCG/0.5 ML VIAL IM ONE ×2 (18:00)
[2021-04-30] MEDS: MIRTAZAPINE 15 MG TAB PO SCH (21:43)
[2021-05-01 00:58] VITALS: BP 141/92
[2021-05-01] MEDS: MORPHINE SULFATE INJ 4 MG/ML INJ 1ML IV PRN (03:35)
[2021-05-01 05:07] LABS: BASOPHILS % 0.4 % (0.0-1.0); EOSINOPHILS # (AUTO) 0.2 (0.0-0.4); EOSINOPHILS % 2.1 % (0.0-6.0); HEMATOCRIT 32.9 % (34.2-44.1); LYMPHOCYTES # (AUTO) 2.8 (1.0-3.2); LYMPHOCYTES % 33.2 % (18.0-39.1); MEAN CORPUSCULAR HEMOGLOBIN 28.5 pg (28-32); MEAN CORPUSCULAR HGB CONC 33.4 g/dL (31-35); MEAN CORPUSCULAR VOLUME 85.2 fL (81-99); MONOCYTES # (AUTO) 0.6 (0.2-0.8); MONOCYTES % 7.5 % (4.4-11.3); NEUTROPHILS # (AUTO) 4.7 (2.1-6.9); NEUTROPHILS % 56.4 % (38.7-80.0); PLATELET COUNT 255 x10e3/uL (140-360); RED BLOOD COUNT 3.86 x10e6/uL (3.6-5.1); RED CELL DISTRIBUTION WIDTH 12.6 % (11.7-14.4)
[2021-05-01 05:35] LABS: ALBUMIN 2.9 g/dL (3.5-5.0); ANION GAP 12.8 mmol/L (8-16); CALCIUM 8.8 mg/dL (8.4-10.2); CREATININE, SERUM 0.62 mg/dL (0.57-1.11); POTASSIUM 3.8 mmol/L (3.5-5.1)
[2021-05-01 06:02] VITALS: BP 133/86
[2021-05-01 06:17] LABS: % IRON SATURATION 13 % (15-50); IRON 38 ug/dL (50-170); TOTAL IRON BINDING CAPACITY 302 ug/dL (261-478); TRANSFERRIN 216 mg/dL (180-382)
[2021-05-01 07:27] VITALS: BP 133/86
[2021-05-01] MEDS ORDERED: PANTOPRAZOLE SOD 40 MG TABEC PO SCH (07:30)
[2021-05-01 07:36] VITALS: BP 133/86
[2021-05-01] MEDS: INSULIN REGULAR, HUMAN 100 UNIT/1 ML SQ SCH ×2 (07:56→10:58)
[2021-05-01] MEDS: INSULIN ASPART 70/30 100 UNITS/ML VIAL SC SCH (07:57)
[2021-05-01] MEDS ORDERED: DICYCLOMINE HCL 20 MG TAB PO SCH (09:00)
[2021-05-01 10:17] VITALS: BP 133/86
[2021-05-01] MEDS ORDERED: ACETAMINOPHEN 325 MG TAB PO PRN (10:30)
[2021-05-01 11:17] VITALS: BP 106/74
[2021-05-01] MEDS ORDERED: AUGMENTIN 875-1 EACH PO (12:20)
== END 2021-05-01 13:25 | disposition home or self-care (01) | DRG 638 ==
LOC: ER 15:16 → ERHOLD 17:59 → ICU 22:16
PROVIDERS: ADMIT Internal Medicine; ATTEND Internal Medicine
DX: E11.10 Type 2 diabetes mellitus with ketoacidosis without coma (principal); N17.9 Acute kidney failure, unspecified; G47.00 Insomnia, unspecified; F41.9 Anxiety disorder, unspecified; F32.9 Major depressive disorder, single episode, unspecified; J45.909 Unspecified asthma, uncomplicated; K21.9 Gastro-esophageal reflux disease without esophagitis; Z87.820 Personal history of traumatic brain injury; Z59.9 Problem related to housing and economic circumstances, unspecified; Z79.899 Other long term (current) drug therapy; T38.3X6A Underdosing of insulin and oral hypoglycemic [antidiabetic] drugs, initial encounter; Z91.120 Patient's intentional underdosing of medication regimen due to financial hardship; Z20.822 Contact with and (suspected) exposure to COVID-19
CPT/HCPCS: 36415; 36569; 36600; 71045; 74177; 80048; 80053; 81001; 82550; 82553; 82607; 82746; 82805; 82948; 83540; 83690; 83735; 84466; 84484; 85025; 85045; 85651; 86140; 86256; 86671; 87086; 90732; 93005; 99284; J0500; J1815; J1817; J2270; J2405; J3475; J3480; J7030; J7050; Q9967; U0002

== ENCOUNTER 2021-08-17 10:18 | Emergency (ER) | payer MEDICARE ==
[~2021-08-17] VITALS: Ht 149.9 cm; Wt 56.0 kg
[~2021-08-17 10:18] MED LIST changes: +AUGMENTIN 875-1 EACH PO
[2021-08-17 11:23] LABS: CLARITY,URINE CLOUDY (CLEAR); COLOR,URINE YELLOW (YELLOW); KETONES,URINE TRACE (NEGATIVE); LEUKOCYTE ESTERASE ,URINE NEGATIVE (NEGATIVE); NITRITE,URINE NEGATIVE (NEGATIVE); PROTEIN,URINE DIPSTICK NEGATIVE (NEGATIVE); URINE UROBILINOGEN 0.2 mg/dL (0.2 - 1)
[2021-08-17 11:34] LABS: BASOPHILS % 0.4 % (0.0-1.0); EOSINOPHILS % 0.5 % (0.0-6.0); HEMATOCRIT 39.3 % (34.2-44.1); HEMOGLOBIN 13.3 g/dL (12.0-16.0); LYMPHOCYTES # (AUTO) 2.2 (1.0-3.2); LYMPHOCYTES % 29.1 % (18.0-39.1); MEAN CORPUSCULAR HGB CONC 33.8 g/dL (31-35); MEAN CORPUSCULAR VOLUME 85.8 fL (81-99); MONOCYTES # (AUTO) 0.5 (0.2-0.8); MONOCYTES % 6.2 % (4.4-11.3); NEUTROPHILS # (AUTO) 4.7 (2.1-6.9); NEUTROPHILS % 63.5 % (38.7-80.0); PLATELET COUNT 240 x10e3/uL (140-360); RED BLOOD COUNT 4.58 x10e6/uL (3.6-5.1); RED CELL DISTRIBUTION WIDTH 12.1 % (11.7-14.4)
[2021-08-17 11:42] LABS: BACTERIA,URINE MODERATE /HPF; EPITHELIAL CELLS,URINE MODERATE /LPF; RENAL EPITHELIAL CELLS,URINE FEW; TRANSITIONAL EPI CELLS,URINE MODERATE
[2021-08-17 11:43] LABS: YEAST,URINE MODERATE
[2021-08-17] MEDS ORDERED: SODIUM CHLORIDE 0.9% 1000ML 1,000 ML IV STA (11:53)
[2021-08-17] MEDS ORDERED: HALOPERIDOL LACTATE 5 MG/ML VIAL IV ONE (12:00)
[2021-08-17 12:03] LABS: ALBUMIN 3.7 g/dL (3.5-5.0); ALBUMIN/GLOBULIN RATIO 1.2 (0.8-2.0); ANION GAP 13.1 mmol/L (8-16); CALCIUM 9.2 mg/dL (8.4-10.2); CREATININE, SERUM 0.78 mg/dL (0.57-1.11); POTASSIUM 4.1 mmol/L (3.5-5.1)
[2021-08-17] MEDS ORDERED: INSULIN REGULAR, HUMAN 100 UNIT/1 ML IV ONE ×2 (12:15→12:30)
[2021-08-17 12:16] LABS: LIPASE 34 U/L (8-78)
[2021-08-17] MEDS ORDERED: IOPAMIDOL 370 MG/ML 200 ML INFUS..BTL INJ ONE (13:00)
[2021-08-17] MEDS ORDERED: CEFTRIAXONE 1 GM in SODIUM CHLORIDE 0.9% 50ML 50 ML IV SCH (13:00)
[2021-08-17] MEDS ORDERED: SODIUM CHLORIDE 0.9% 50ML 50 ML ONE (13:00)
[2021-08-17] MEDS ORDERED: PEPCID20 MG PO (14:00)
[2021-08-17] MEDS ORDERED: REGLAN10 MG PO (14:00)
== END 2021-08-17 15:05 | disposition home or self-care (01) ==
LOC: ER 10:24
DX: E11.43 Type 2 diabetes mellitus with diabetic autonomic (poly)neuropathy (principal); K31.84 Gastroparesis; R10.13 Epigastric pain; K58.9 Irritable bowel syndrome, unspecified
CPT/HCPCS: 36415; 71045; 74177; 80053; 81001; 82948; 83690; 84484; 84702; 85025; 93005; 99284; J0696; J1630; J1817; J7030; Q9967

== ENCOUNTER 2021-10-06 11:11 | Emergency (ER) | payer SELFPAY ==
[~2021-10-06] VITALS: Ht 149.9 cm; Wt 55.8 kg
[~2021-10-06 11:11] MED LIST changes: +REGLAN10 MG PO
[2021-10-06 11:53] LABS: BASOPHILS % 0.2 % (0.0-1.0); EOSINOPHILS % 0.2 % (0.0-6.0); HEMATOCRIT 41.4 % (34.2-44.1); HEMOGLOBIN 14.2 g/dL (12.0-16.0); LYMPHOCYTES # (AUTO) 1.9 (1.0-3.2); LYMPHOCYTES % 22.6 % (18.0-39.1); MEAN CORPUSCULAR HEMOGLOBIN 29.1 pg (28-32); MEAN CORPUSCULAR HGB CONC 34.3 g/dL (31-35); MEAN CORPUSCULAR VOLUME 84.8 fL (81-99); MONOCYTES # (AUTO) 0.4 (0.2-0.8); MONOCYTES % 4.4 % (4.4-11.3); NEUTROPHILS # (AUTO) 6.1 (2.1-6.9); NEUTROPHILS % 72.2 % (38.7-80.0); PLATELET COUNT 257 x10e3/uL (140-360); RED BLOOD COUNT 4.88 x10e6/uL (3.6-5.1)
[2021-10-06 12:11] LABS: ALBUMIN 4.2 g/dL (3.5-5.0); ALBUMIN/GLOBULIN RATIO 1.3 (0.8-2.0); ANION GAP 21.1 mmol/L (8-16); CALCIUM 9.4 mg/dL (8.4-10.2); CREATININE, SERUM 0.86 mg/dL (0.57-1.11); POTASSIUM 4.1 mmol/L (3.5-5.1)
[2021-10-06] MEDS ORDERED: SODIUM CHLORIDE 0.9% 1000ML 1,000 ML IV SCH (12:15)
[2021-10-06 12:58] LABS: AMPHETAMINES SCREEN,URINE NEGATIVE (NEGATIVE); BENZODIAZEPINES SCREEN,URINE POSITIVE (NEGATIVE); PHENCYCLIDINE SCREEN,URINE NEGATIVE (NEGATIVE)
[2021-10-06] MEDS ORDERED: ONDANSETRON ODT4 MG PO (13:13)
== END 2021-10-06 13:30 | disposition home or self-care (01) ==
LOC: ER 11:26
DX: R19.7 Diarrhea, unspecified (principal); F14.90 Cocaine use, unspecified, uncomplicated; E11.65 Type 2 diabetes mellitus with hyperglycemia; R05.9 Cough, unspecified; F41.9 Anxiety disorder, unspecified
CPT/HCPCS: 36415; 71045; 80053; 80307; 80320; 84484; 85025; 93005; 99284; J7030; U0002